=== PATIENT | female | born 1955 | race Caucasian/White ===

== ENCOUNTER 2020-10-20 12:34 | Outpatient (CLI) | payer MEDICARE, SELFPAY ==
--- NOTE | ~2020-10-20 | DEXA_ITS ---
Bone Density Report Name: Toña Yo Age: 65 Sex: Female Ethnicity: White Date of : 1955 Indication: postmenopausal; prior fracture; Referring Provider: Janna Gann Study: Bone densitometry was performed. Exam Date: October 20, 2020 Accession number: [id number] Bone Density: Region BMD T-score Z-score Classification AP Spine (L1-L4) 0.897 -1.4 0.5 Osteopenia Femoral Neck (Left) 0.697 -1.4 0.2 Osteopenia Total Hip (Left) 0.846 -0.8 0.5 Normal Total Hip Bilateral Avg 0.826 -1.0 0.4 Osteopenia Femoral Neck (Right) 0.721 -1.1 0.4 Osteopenia Total Hip (Right) 0.804 -1.1 0.2 Osteopenia World Health Organization criteria for BMD impression classify patients as: Normal (T-score at or above -1.0), Osteopenia (T-score between -1.0 and -2.5), or Osteoporosis (T-score at or below -2.5). 10-year Fracture Risk(1): Major Osteoporotic Fracture 14% Hip Fracture 1.4% Reported Risk Factors: [place] (), Neck BMD=0.697, BMI=28.8, previous fracture (1) FRAX(R) Version 3.08. Fracture probability calculated for an untreated patient. Fracture probability may be lower if the patient has received treatment. Clinical Information Provided by Patient: Has had a low trauma fracture Patient maximum height was 69 Menopause Age: 51 No regular weight bearing exercise Drinks caffeinated beverages Onset of menses at age 12 Number of children 2 Impression: The patient has low bone mass, based on the Total Spine T-score. The patient has an estimated ten-year risk of hip fracture of 1.4% and an estimated ten-year risk of major fracture of 14%, based on the WHO FRAX algorithm. The patient has risk factors, including: previous fracture. Discussion: BONE DENSITY IS LOW AT ONE OR MORE SKELETAL SITES. This patient's lowest T-score is low at one or more skeletal sites. It meets the World Health Organization's (WHO) criteria for ?low bone mass? (T-score between -1.0 and -2.5). The patient's 10-year risk of fracture as calculated by FRAX is less than the threshold where pharmacological therapy is recommended by the National Osteoporosis Foundation (NOF). However, all treatment decisions require clinical judgment and consideration of individual patient factors, including patient preferences, comorbidities, previous drug use, risk factors not captured in the FRAX model (e.g., frailty, falls, vitamin D deficiency, increased bone turnover, interval significant decline in bone density) and possible under or overestimation of fracture risk by FRAX. The patient should follow a healthful lifestyle (good nutrition with adequate calcium and vitamin D, and appropriate weight-bearing exercise). Follow-Up: Consider repeating this study in 2 to 3 years to reassess this patient's status, or sooner if there is some new clinical indication.
== END 2020-10-20 12:35 | disposition home or self-care (01) ==
LOC: ANHIMG 12:41
PROVIDERS: PCP Internal Medicine; Visit Provider Obstetrics & Gynecology
DX: Z78.0 Asymptomatic menopausal state (principal); M85.88 Other specified disorders of bone density and structure, other site; M85.852 Other specified disorders of bone density and structure, left thigh; M85.851 Other specified disorders of bone density and structure, right thigh
CPT/HCPCS: 77080

== ENCOUNTER 2020-10-27 12:47 | Outpatient (CLI) | payer MEDICARE, SELFPAY ==
--- NOTE | ~2020-10-27 | MM_ITS ---
EXAMINATION: MM screening carmen BI w gautam HISTORY: Screening mammogram TECHNIQUE: Craniocaudal and mediolateral oblique 3-D tomosynthesis images were obtained and synthetic 2-D images were generated. CAD analysis was submitted and interpreted. COMPARISON: 05/12/2015 bilateral Limited breast ultrasound 02/03/2015 right complete breast ultrasound 02/03/2015 bilateral diagnostic digital mammogram and limited left breast ultrasound 01/27/2013 bilateral digital screening mammogram BREAST PARENCHYMAL COMPOSITION: The breasts are heterogeneously dense, which may obscure small masses . FINDINGS: There is no evidence of suspicious mass, calcification, or architectural distortion to sugg est malignancy in either breast. There has been no suspicious interval change. IMPRESSION: 1. No mammographic evidence of malignancy. 2. Recommend routine screening mammography in one year. BI-RADS Category 1: Negative Reviewed, dictated and finalized at location D.
== END 2020-10-27 12:48 | disposition home or self-care (01) ==
PROVIDERS: PCP Internal Medicine; Visit Provider Obstetrics & Gynecology
DX: Z12.31 Encounter for screening mammogram for malignant neoplasm of breast (principal)
CPT/HCPCS: 77063; 77067

== ENCOUNTER → 2021-05-12 10:52 | Outpatient (CLI) | payer MEDICARE, SELFPAY ==
--- NOTE | ~2021-05-12 | XR_ITS ---
EXAMINATION: XR chest 2V DATE: 05/12/2021 11:21 INDICATION: Abnormal weight loss TECHNIQUE: frontal and lateral views of the chest were obtained. COMPARISON: Chest radiograph dated 09/23/2009 FINDINGS: The lungs remain clear with no focal airspace opacities, pulmonary edema, pleural effusion or pneumot horax. The cardiomediastinal silhouette is normal. Tortuous thoracic aorta. Mild thoracic spondylosis . IMPRESSION: 1. No acute cardiopulmonary disease. Reviewed, dictated and finalized at location B. [employer] TRA[employer]ER
== END ==
PROVIDERS: PCP Internal Medicine; Visit Provider Internal Medicine
DX: R63.4 Abnormal weight loss (principal)
CPT/HCPCS: 71046

== ENCOUNTER 2021-10-07 12:18 | Emergency (ER) | payer MEDICARE, SELFPAY ==
[2021-10-07 12:20] VITALS: BP 150/96; PULSE 101; RESP 16; TEMP 35.9; O2SAT 100
[2021-10-07] MEDS: predniSONE 20 MG TABLET 60 MG PO (12:42)
[2021-10-07] MEDS: FAMOTIDINE 20 MG TABLET PO (12:43)
[2021-10-07 12:45] LABS: Basophils Absolute Auto 0.1 K/mm3 (0.0-0.1); Basophils Percent Auto 1.2 % (0.2-1.2); Eosinophils Absolute Auto 0.5 K/mm3 (0-0.3); Eosinophils Percent Auto 9.1 % (0-4.4); Hematocrit 45.7 % (37.0-47.0); Hemoglobin 14.9 g/dL (12.0-15.0); Immature Granulocyte Absolute 0.02 K/mm3 (0.00-0.031); Immature Granulocyte Percent A 0.4 % (0-0.5); Lymphocytes Percent Auto 42.4 % (18.3-44.2); Mean Corpuscular HGB Conc 32.6 g/dl (32-36); Mean Corpuscular Hemoglobin 30.8 pg (26-34); Mean Corpuscular Volume 94.6 fl (80-100); Monocytes Absolute Auto 0.7 K/mm3 (0.1-0.6); Monocytes Percent Auto 12.9 % (2.6-8.5); Neutrophils Absolute Auto 1.8 K/mm3 (1.3-6.7); Platelet Count Result 228 k/mm3 (150-375); Red Blood Count 4.83 M/mm3 (4.2-5.4); Red Cell Distribution Width 13.1 % (11.5-14.5); White Blood Count 5.2 K/mm3 (4.5-10.0)
[2021-10-07 12:56] LABS: Alanine Aminotransferase 70 U/L (4-35); Albumin Level 4.6 g/dL (3.5-5.1); Alkaline Phosphatase 143 U/L (38-126); Anion Gap 8 mmol/L (8-16); Aspartate Amino Transferase 102 U/L (14-36); Bilirubin,Total 0.3 mg/dL (0.2-1.3); Blood Urea Nitrogen 10 mg/dL (7-17); Calcium 9.4 mg/dL (8.4-10.2); Carbon Dioxide 27 mmol/L (22-30); Chloride 101 mmol/L (98-107); Estimated CRCL calculation 64 ml/min; Estimated Glomerular Filt Rate > 60; Glucose 105 mg/dL (65-110); Potassium 3.6 mmol/L (3.4-5.0); Sodium 136 mmol/L (137-145)
--- NOTE | 2021-10-07 14:24 | ED.ALLEREA ---
HPI - Allergic Reaction General Chief complaint: Allergic Reaction Stated complaint: allergic reaction Time Seen by Provider: 10/07/21 12:29 Source: RN notes reviewed History of Present Illness HPI narrative: Patient presents emergency department from home for allergic reaction. Patient states symptoms been ongoing for the past 2 to 3 weeks she states she has been having hives to them in different locations including her face or chest her lower back or legs and in her hands she states that 3 days ago she began to notice hives on her hands she states that the areas on the face are still present but have been improving she states today she felt like possibly she had some feeling of sticking in her throat and she came to the ER for further evaluation she denies any shortness of breath or inability to swallow she denies any fevers or chills, chest pain, shortness of breath abdominal pain nausea vomiting or any other symptoms. She did take 50 mg of Benadryl at 10 AM this morning but denies taking any other medication. Denies any new medications. 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 and placed on eyedrop she is no longer on Related Data Allergies Allergy/AdvReac Type Severity Reaction Status Date / Time Cephalosporins Allergy Unknown Unknown Verified 10/07/21 12:43 Penicillins Allergy Unknown Unknown Verified 10/07/21 12:43 Quinolones Allergy Unknown Unknown Verified 10/07/21 12:43 Sulfa (Sulfonamide Allergy Unknown Unknown Verified 10/07/21 12:43 Antibiotics) Review of Systems Review of Systems: Gen.: Denies fevers or chills Eyes: Denies eye pain or visual change ENT: Denies congestion Respiratory: Denies shortness of breath or cough CV: Denies chest pain or palpitations GI: Denies abdominal pain nausea, emesis or diarrhea denies burning, urgency, frequency or hematuria Musculoskeletal: Denies back pain or muscle pain Neuro: Denies numbness, tingling, weakness or focal weakness Skin: See HPI Except as documented, all other systems reviewed and negative [facility] Past Medical History Medical History (Updated 10/07/21 @ 14:28 by Winston Aly DO) Hypertension Family History Family History (Updated 08/15/18 @ 08:57 by DOCTOR UNKNOWN) Mother Cerebrovascular accident Hypertension Sibling Family history of lung cancer Social History Social History (Updated 10/07/21 @ 14:25 by Winston Aly DO) Smoking status: Never smoker Alcohol intake: current Exam Narrative: APPEARANCE: No acute distress, nontoxic, resting in bed EYES: EOMI HEENT: Normocephalic, atraumatic, OMM airway patent no swelling of the lips or time, uvula midline tolerating own secretions voice normal RESPIRATORY: No respiratory distress Clear to auscultation bilaterally with no rhonchi wheezing or rales. CARDIOVASCULAR: Regular rate and rhythm without murmurs rubs or gallops. ABDOMINAL: Soft, nontender, nondistended, no rebound or guarding MUSCULOSKELETAl: Moves all extremities. No clubbing, cyanosis or edema. NEURO: Awake and alert. Following commands, speech normal, no focal deficits SKIN:: Warm, dry. Patient with bilateral hands with erythematous lesions that have no nodule feeling there is no raised areas there is no fluctuance or drainage there is similar appearance on her bilateral cheeks as well as her midsternal chest and lower back patient states the areas do itch PSYCHIATRIC: Normal affect/mood, Course Course Emergency Course: Patient states symptoms are improved with steroids Discussed with patient results of workup and diagnosis. Discussed need for follow-up with primary care, proper use of medication, and reasons to return to the emergency department. Patient understands and agrees to current treatment plan Vital Signs Vital signs: Vital Signs Temperature 96.6 F L 10/07/21 12:20 Pulse Rate 101 H 10/07/21 12:20 Respiratory Rate 16
[2021-10-07 15:03] VITALS: BP 148/90; PULSE 98; RESP 18; O2SAT 100
== END 2021-10-07 15:07 | disposition home or self-care (01) ==
PROVIDERS: Emergency Provider Emergency Medicine; PCP Internal Medicine
DX: L50.9 Urticaria, unspecified (principal); I10 Essential (primary) hypertension
CPT/HCPCS: 36415; 80053; 85025; 99283; A9270; J7512

== ENCOUNTER → 2022-01-25 10:13 | Outpatient (CLI) | payer MEDICARE, SELFPAY ==
--- NOTE | ~2022-01-25 | MM_ITS ---
EXAMINATION: MM screening carmen BI w gautam HISTORY: Screening TECHNIQUE: Craniocaudal and mediolateral oblique 3-D tomosynthesis images were obtained and synthetic 2-D images were generated. CAD analysis was submitted and interpreted. COMPARISON: Comparison to multiple prior studies sequentially, with oldest reviewed study dated 01/27. BREAST PARENCHYMAL COMPOSITION: The breasts are heterogeneously dense, which may obscure small masses FINDINGS: There is a possible mass in the lower inner quadrant of the left breast. The right breast i s stable without evidence for malignancy. IMPRESSION: 1. Possible mass lower inner quadrant of the left breast. 2. Additional mammographic views and possible breast ultrasound are recommended. BI-RADS Category 0: Incomplete: Needs additional imaging evaluation. Reviewed, dictated and finalized at location A. IMPRESSION: 1. Possible mass lower inner quadrant of the left breast. 2. Additional mammographic views and possible breast ultrasound are recommended . BI-RADS Category 0: Incomplete: Needs additional imaging evaluation.
== END ==
PROVIDERS: PCP Internal Medicine; Visit Provider Internal Medicine
DX: Z12.31 Encounter for screening mammogram for malignant neoplasm of breast (principal); R92.8 Other abnormal and inconclusive findings on diagnostic imaging of breast
CPT/HCPCS: 77063; 77067

== ENCOUNTER 2022-02-10 13:29 | Outpatient (CLI) | payer MEDICARE, SELFPAY ==
--- NOTE | ~2022-02-10 | MMUS_ITS ---
EXAMINATION: MM diagnostic carmen LT w gautam, US breast LT limited HISTORY: Possible mass of the lower inner quadrant of left breast reported on 01/21/2022 screening carmen mogram examination TECHNIQUE: Additional 3-D tomosynthesis images of the left breast were performed and synthetic 2-D im ages were generated. CAD analysis was submitted and interpreted. High resolution lower inner quadrant left breast ultrasound was performed. COMPARISON: 01/21/2022 bilateral screening mammogram examination FINDINGS: MAMMOGRAPHIC FINDINGS: Approximately 8 mm opacity is suggested in the lower inner quadrant of the left breast not far from m idline. Ultrasound correlation was obtained. ULTRASOUND: 5.8 x 8 x 9 mm circumscribed hypoechoic lesion with through transmission posterior enhancement is nadir ntified at 6:00 near the nipple. This is most likely benign. Differential diagnosis includes fibroade noma and complicated cysts. 6 month follow-up diagnostic mammogram and left breast ultrasound examina tion are recommended. IMPRESSION: 1. Probable benign 9 mm mass at 6:00 2. 6 month follow-up diagnostic mammogram and left breast ultrasound examination are recommended BI-RADS category 3, probably benign findings. Reviewed, dictated and finalized at location A. IMPRESSION: 1. Probable benign 9 mm mass at 6:00 2. 6 month follow-up diagnostic mammogram and left breast ultrasound examinatio n are recommended BI-RADS category 3, probably benign findings.
== END 2022-02-10 13:30 | disposition home or self-care (01) ==
LOC: ANHIMG 13:31
PROVIDERS: PCP Internal Medicine; Visit Provider Internal Medicine
DX: R92.8 Other abnormal and inconclusive findings on diagnostic imaging of breast (principal)
CPT/HCPCS: 76642; 77061; 77065; G0279

== ENCOUNTER 2022-08-29 05:25 | Inpatient (IN) | payer MEDICARE, SELFPAY ==
[2022-08-29] VITALS (30 sets, daily range): BP systolic 122–171; BP diastolic 73–103; PULSE 89–125; RESP 16–27; TEMP 37.4–38.1; O2SAT 94–100; BMI 27.2
--- NOTE | ~2022-08-29 | CT_ITS ---
EXAMINATION: CT cervical spine wo con DATE: 08/29/2022 06:06 INDICATION: Fall. TECHNIQUE: Computed tomography (CT) of the cervical spine was performed without intravenous contrast. Automated exposure control and iterative reconstruction technique were employed. The dose-length pro duct was 523.28 mGy-cm. COMPARISON: None FINDINGS: There is mild emphysema. There is 5 degrees dextrocurvature of cervical spine. There is kyp hosis of cervical spine. There is mild chronic anterior wedging of C5 vertebral body. There is 1 mm r etrolisthesis of C5 on C6. There is moderately decreased disc height at C5-C6. The following disc lev els are specifically discussed: C2-C3: There is no uncovertebral joint osteoarthritis. There is mild right and severe left facet join t osteoarthritis. There is mild left neural foraminal stenosis. There is no central canal stenosis. C3-C4: There is no uncovertebral joint osteoarthritis. There is moderate right and severe left facet joint osteoarthritis. There is moderate left neural foraminal stenosis. There is no central canal domenic nosis. C4-C5: There is mild bilateral uncovertebral joint osteoarthritis. There is moderate bilateral facet joint osteoarthritis. There is no neural foraminal stenosis. There is no central canal stenosis. C5-C6: There is mild right and severe left uncovertebral joint osteoarthritis. There is mild bilatera l facet joint osteoarthritis. There is mild left neural foraminal stenosis. There is mild central can al stenosis. C6-C7: There is mild bilateral uncovertebral joint osteoarthritis. There is moderate left facet joint osteoarthritis. There is no neural foraminal stenosis. There is no central canal stenosis. C7-T1: There is no uncovertebral joint osteoarthritis. There is moderate right and severe left facet joint osteoarthritis. There is mild left neural foraminal stenosis. There is no central canal stenosi s. IMPRESSION: 1. No fracture. 2. Moderate cervical spondylosis. Reviewed, dictated and finalized at location A.
--- NOTE | ~2022-08-29 | MR_ITS ---
MRI of the brain Clinical History: CVA Technique: Axial and sagittal T1-weighted images were acquired. These were followed by axial T2-weigh inna, diffusion weighted, gradient, and FLAIR images. Following intravenous administration of 17 cc Mu ltiHance gadolinium, T1-weighted fat-sat imaging was performed in the axial plane. Findings: There is extensive FLAIR hyperintense signal and probable edematous change of the medial ri ght temporal lobe. There is also probable much more mild abnormal increased FLAIR signal in the anter omedial left temporal lobe as well. Lesion is heterogeneous in signal diffusion images with predomina ntly high signal on ADC map. There is subtle hemosiderin within the medial right temporal lobe abnorm ality on gradient images. Ventricles and subarachnoid spaces are unremarkable otherwise. Orbits are unremarkable. Paranasal sin uses and mastoid air cells are clear. Major intracranial flow voids are intact. Sagittal midline structures are intact. IMPRESSION: Extensive abnormal FLAIR hyperintense signal and probable edematous change involving the medial right temporal lobe, with much more mild findings in the medial left temporal lobe. Probable subtle hemosi gera within the right temporal abnormality. Distribution of findings is probably most suspicious for herpes encephalitis. Diffusion weighted imaging characteristics are inconsistent with an acute infar ct. Case discussed with Dr. Franks at the time of this reading. Reviewed, dictated and finalized at location . IMPRESSION: Extensive abnormal FLAIR hyperintense signal and probable edematous change invo lving the medial right temporal lobe, with much more mild findings in the media l left temporal lobe. Probable subtle hemosiderin within the right temporal abn ormality. Distribution of findings is probably most suspicious for herpes encep halitis. Diffusion weighted imaging characteristics are inconsistent with an ac el infarct. Case discussed with Dr. Franks at the time of this reading.
--- NOTE | ~2022-08-29 | XR_ITS ---
EXAMINATION: XR chest 1V portable DATE: 08/29/2022 06:32 INDICATION: Weakness. TECHNIQUE: A single frontal view of the chest was obtained. COMPARISON: Chest 2 views 05/12/2021 FINDINGS: The chest demonstrates clear lungs without pneumonia, pleural effusion, or pneumothorax. Th e heart size is normal. IMPRESSION: 1. No acute cardiopulmonary disease. Reviewed, dictated and finalized at location A.
--- NOTE | ~2022-08-29 | CT_ITS ---
EXAMINATION: CTA brain carotid DATE: 08/29/2022 07:32 INDICATION: Stroke. TECHNIQUE: Computed tomographic angiography (CTA) of the head was performed with 100 mL Omnipaque-350 intravenous contrast. CTA of the neck was performed with intravenous contrast. Automated exposure co ntrol and iterative reconstruction technique were employed. The dose-length product was 1090.19 mGy-c m. Maximum intensity projection and volume rendered 3D-reconstructions were created by the technologi st on a separate workstation. COMPARISON: Head CT 08/29/2022 FINDINGS: HEAD CTA: There is low attenuation in the medial right temporal lobe, consistent with acute infarct. There is no intracranial hemorrhage or abnormal mass lesion. The ventricles are normal in size. There is mild mucosal thickening in the paranasal sinuses. The orbits are normal. The mastoid air cells ar e normal. The vertebral arteries are codominant. There is no significant stenosis of basilar artery o r the posterior cerebral arteries. The posterior communicating arteries are normal. There is no signi ficant stenosis of the intracranial internal carotid arteries or anterior or middle cerebral arteries . Anterior communicating artery is normal. There is no aneurysm. NECK CTA: There is mild emphysema. There are no pathologically enlarged lymph nodes. There is no sign ificant stenosis of the vertebral arteries. There is plaque in the proximal internal carotid arteries . There is 0% stenosis of the proximal right internal carotid artery relative to normal distal artery lumen diameter (NASCET criteria). There is 0% stenosis of the proximal left internal carotid artery relative to normal distal artery lumen diameter. There is moderate cervical spondylosis. IMPRESSION: 1. Acute infarct in the right temporal lobe. 2. No aneurysm or significant intracranial arterial stenosis. 3. 0% stenosis of the proximal internal carotid arteries relative to normal distal artery lumen diame ters (NASCET criteria). Reviewed, dictated and finalized at location A. IMPRESSION: 1. Acute infarct in the right temporal lobe. 2. No aneurysm or significant intracranial arterial stenosis. 3. 0% stenosis of the proximal internal carotid arteries relative to normal dis bashir artery lumen diameters (NASCET criteria).
--- NOTE | ~2022-08-29 | CT_ITS ---
EXAMINATION: CT brain wo con DATE: 08/29/2022 06:06 INDICATION: Seizure. Stroke. Fall. TECHNIQUE: Computed tomography (CT) of the head was performed without intravenous contrast. The mA wa s adjusted according to patient size. Iterative reconstruction technique was employed. The dose-lengt h product was 605.33 mGy-cm. COMPARISON: None FINDINGS: There is low attenuation in the medial right temporal lobe, consistent with an acute infarc t. There is no intracranial hemorrhage or abnormal mass lesion. The ventricles are normal in size. Th e orbits are normal. There is mild mucosal thickening in the ethmoid sinuses. The mastoid air cells a re normal. IMPRESSION: 1. Acute infarct in right temporal lobe. I called this result to Dr. Banegas. Reviewed, dictated and finalized at location A.
--- NOTE | ~2022-08-29 | XR_ITS ---
EXAMINATION: XR lumbar puncture diagnostic DATE: 08/30/2022 09:54 INDICATION: Seizure. TECHNIQUE: Consent was provided by the patient's . A timeout was performed to verify the pat ient's name, date of , and procedure to be performed. The skin overlying the L2-L3 level was pr epped and draped in usual sterile fashion. Subcutaneous 1% lidocaine was used for local anesthesia. A 20 gauge spinal needle was advanced under fluoroscopic guidance. The needle was removed and the en try site was cleaned and dressed. There were no immediate complications. Fluoroscopy exposure time w as 0.0 minutes. The total number of images was 1. FINDINGS: Real-time fluoroscopy demonstrates the needle at the L2-L3 level. The opening pressure was 14 cm water (Normal range is variably defined as 6-20 cm water and up to 25 cm water in obese patient s. Pressure >25 cm water is one of the modified Dandy criteria for idiopathic intracranial hypertensi on). 14 mL of clear, colorless fluid was collected in 4 tubes. IMPRESSION: 1. Successful fluoro-guided lumbar puncture. Reviewed, dictated and finalized at location A.
--- NOTE | 2022-08-29 05:38 | ECG_ITS ---
Measurements Intervals [place] Rate: 116 P: 47 MT: 185 QRS: -14 QRSD: 84 T: 33 QT: 435 QTc: 605 Interpretive Statements SINUS TACHYCARDIA POSSIBLE LEFT ATRIAL ENLARGEMENT POSSIBLE LEFT VENTRICULAR HYPERTROPHY BORDERLINE R WAVE PROGRESSION, ANTERIOR LEADS INFERIOR INFARCT, AGE INDETERMINATE ABNORMAL ECG NO PREVIOUS ECG AVAILABLE FOR COMPARISON Electronically Signed On 08-29-2022 8:02:43 CDT by Husam Craft D.O.
[2022-08-29 05:39] LABS: Glucose Point of Care 195 mg/dl (65-105)
[2022-08-29] MEDS: SODIUM CHLORIDE 0.9% IV 1,000 ML 999 ML IV CONT (05:47)
--- NOTE | 2022-08-29 05:54 | ED.GENADULT ---
HPI - General Adult General Chief complaint: Fall <Jeremie Banegas MD - Last Filed: 08/29/22 19:53> Stated complaint: possible seizure s/p fall <Jeremie Banegas MD - Last Filed: 08/29/22 19:53> Time Seen by Provider: 08/29/22 05:38 <Jeremie Banegas MD - Last Filed: 08/29/22 19:53> History of Present Illness HPI narrative: confusion since yesterday morning around 5 pm was confused and this evening got up at 2 am fell to floor was helped into chair and had generalized seizure. Patient 67-year-old female who presents the emergency department with chief complaint of seizure. Per the patient's family the patient was acting strange yesterday and around 5 PM she was having difficulty identifying things and could not identify a thermometer for the patient got up in the morning fell to the floor and he helped her up to a chair of which a little while later he checked on her and she was having shaking in her extremities and was foaming at the mouth <Jeremie Banegas MD - Last Filed: 08/29/22 19:53> Related Data Allergies/adverse reactions: Allergies Allergy/AdvReac Type Severity Reaction Status Date / Time Cephalosporins Allergy Unknown Unknown Verified 10/07/21 12:43 Penicillins Allergy Unknown Unknown Verified 10/07/21 12:43 Quinolones Allergy Unknown Unknown Verified 10/07/21 12:43 Sulfa (Sulfonamide Allergy Unknown Unknown Verified 10/07/21 12:43 Antibiotics) <Jeremie Banegas MD - Last Filed: 08/29/22 19:53> Review of Systems Review of Systems: A 10 system review of systems was completed on the patient and is negative except for what is stated in the HPI. Nursing and ancillary documentation was reviewed. <Jeremie Banegas MD - Last Filed: 08/29/22 19:53> PMFSH Past Medical History Medical History: Medical History Hypertension <Jeremie Banegas MD - Last Filed: 08/29/22 19:53> Family History Family History: Family History Mother Cerebrovascular accident Hypertension Sibling Family history of lung cancer <Jeremie Banegas MD - Last Filed: 08/29/22 19:53> Social History Social History: Social History Smoking status: Never smoker Second hand tobacco smoke exposure: No Alcohol intake: current Drinks per week: 2 Substance use: never Substance use type: does not use Spiritual care concerns: No <Jeremie Banegas MD - Last Filed: 08/29/22 19:53> Exam Narrative: GENERAL: Patient ill-appearing, slow to respond. HEAD: Normocephalic, atraumatic. EYES: PERRLA and EOMI. ENT: Nares clear, no rhinorrhea or epistaxis. Mucous membranes moist. NECK: Supple. CHEST: Clear to auscultation. No respiratory distress. HEART: Regular rate and rhythm. No murmur heard. Normal peripheral pulses. ABDOMEN: Soft, nontender, nondistended, normal active bowel sounds. EXTREMITIES: Normal range of motion. No edema. SKIN: Warm, dry, no rash. NEURO: No facial droop present, patient has intermittent shaking in the right hand, unresponsive.. PSYCH: Normal mood and affect. <Jeremie Banegas MD - Last Filed: 08/29/22 19:53> Course Course Emergency Course: patient not a lytic candidate LKW >4 hrs and positive seizure activity. <Jeremie Banegas MD - Last Filed: 08/29/22 19:53> Reevaluation(s) Reevaluation #1: Patient laying down in bed, with intermittent snoring, arousable to pain with opening her eyes, does not respond to verbal commands, at the bedside <Jemal Ragsdale MD - Last Filed: 08/29/22 10:01> Date: 08/29/22 <Jemal Ragsdale MD - Last Filed: 08/29/22 10:01> Time: 09:58 <Jemal Ragsdale MD - Last Filed: 08/29/22 10:01> Consultations Consultation #1:
[2022-08-29 06:05] LABS: Basophils Percent Auto 0.3 % (0.2-1.2); Hematocrit 42.8 % (37.0-47.0); Hemoglobin 13.3 g/dL (12.0-15.0); Immature Granulocyte Absolute 0.23 K/mm3 (0.00-0.031); Immature Granulocyte Percent A 1.8 % (0-0.5); Lymphocytes Absolute Auto 1.13 K/mm3 (0.9-3.2); Lymphocytes Percent Auto 8.9 % (18.3-44.2); Mean Corpuscular HGB Conc 31.1 g/dl (32-36); Mean Corpuscular Volume 93.4 fl (80-100); Mean Platelet Volume 9.3 fl (7.4-10.4); Monocytes Absolute Auto 0.4 K/mm3 (0.1-0.6); Monocytes Percent Auto 2.9 % (2.6-8.5); Neutrophils Absolute Auto 10.9 K/mm3 (1.3-6.7); Neutrophils Percent Auto 86.1 % (45.5-73.1); Platelet Count Result 299 k/mm3 (150-375); Red Blood Count 4.58 M/mm3 (4.2-5.4); Red Cell Distribution Width 12.7 % (11.5-14.5); White Blood Count 12.7 K/mm3 (4.5-10.0)
--- NOTE | 2022-08-29 06:07 | PC.NURSE ---
Pt more arousable, alert to verbal stimuli but unable to follow directions
[2022-08-29 06:14] LABS: Alkaline Phosphatase 145 U/L (38-126); Anion Gap 24 mmol/L (8-16); Bilirubin,Total 0.6 mg/dL (0.2-1.3); Blood Urea Nitrogen 10 mg/dL (7-17); Calcium 9.5 mg/dL (8.4-10.2); Carbon Dioxide 15 mmol/L (22-30); Chloride 96 mmol/L (98-107); Estimated Glomerular Filt Rate 55; Glucose 203 mg/dL (65-110); Magnesium 2.4 mg/dL (1.6-2.3); Potassium 3.5 mmol/L (3.4-5.0); Sodium 135 mmol/L (137-145)
[2022-08-29 06:15] LABS: INR 1.1; Partial Thromboplastin Time 34.3 SECONDS (22.3-36.8); Prothrombin Time 14.1 Seconds (11.1-14.7)
[2022-08-29 06:17] LABS: Ethanol < 10 mg/dL (<10)
[2022-08-29 06:23] LABS: Troponin I < 0.012 ng/mL (0.000-0.034)
[2022-08-29] MEDS: levETIRAcetam 1000MG/NACL100ML 1,000 MG/100 ML BAG 400 MG IVPB (06:32)
[2022-08-29 06:36] LABS: Lactic Acid Reflex 13.4 mmol/L (0.7-2.0)
--- NOTE | 2022-08-29 06:49 | PC.NURSE ---
Confirmed with Dr. Banegas that the patient will need a Britt catheter.
[2022-08-29 07:13] LABS: Alanine Aminotransferase 48 U/L (6-35); Aspartate Amino Transferase 54 U/L (14-36)
[2022-08-29 07:19] LABS: Appearance Urine Clear (Clear); Bacteria Urine None Seen /hpf; Bilirubin Urine Negative (Negative); Blood Urine Negative (Negative); Color Urine Yellow (Yellow); Glucose Urine UA Negative (Negative); Ketones Urine Negative (Negative); Leukocyte Esterase Ur Negative LEU/UL (Negative); Need Manual Microscopic Reviewed; Nitrate Urine Negative (Negative); Protein Urine 2+ mg/dL (Negative); RBC Urine 0-2 /hpf (0-2); Specific Grav Ur 1.016 (1.001-1.035); Squamous Epithelial Cell Urine None seen /hpf (Few); Urobilinogen Urine 0.2 mg/dL (<2.0); WBC Urine 0-5 /hpf
[2022-08-29 07:21] LABS: Add Urine Microscopic? YES
[2022-08-29 08:54] LABS: Reflex Lactic Acid Yes or No Add Lactic
[2022-08-29] MEDS: ASPIRIN 300 MG SUPPOSITORY RECTAL (09:53)
[2022-08-29 09:57] LABS: Lactic Acid 1.8 mmol/L (0.7-2.0)
[2022-08-29 09:58] LABS: Amphetamine Screen Urine Negative (Negative); Barbiturate Screen Urine Negative (Negative); Benzodiazepines Screen Urine Negative (Negative); Cannabinoid Screen Urine Negative (Negative); Cocaine Screen Urine Negative (Negative); Methadone Screen Urine Negative (Negative); Opiate Screen Urine Negative (Negative); Phencyclidine Screen Urine Negative (Negative)
[2022-08-29] MEDS: ONDANSETRON INJ 4 MG/2 ML VIAL 8 MG IV PUSH (12:40)
--- NOTE | 2022-08-29 13:45 | PM.IMHP ---
H&P: HPI History of Present Illness Date/Time: 08/29/22 13:45 Chief Complaint: Seizure-like activity. Narrative: This is a 67-year-old female who presented to the emergency department via EMS from home for evaluation of seizure-like activity. Patient provides following history. She is a bit confused as to what occurred today and thus some of the following is supplemented via a review of her electronic medical records. Last evening her reports that she was acting strange, for example she had difficulties identifying things such as a thermometer. At about 02:30 she fell out of bed and he helped her up to a chair and when he checked on her a bit later she was reportedly shaking in her extremities and was foaming at the mouth. She was postictal on arrival to the ED and cannot provide an accurate history. Initial concerns were for possible stroke versus seizure. By the time she arrived to the ER she was technically out of the window for tPA and would not be a candidate for his such due to reports of seizure-like activity. Brain CT did show evidence of an acute infarct and a subsequent CTA of the head and neck showed no evidence of large vessel occlusion. She was loaded with Keppra as she was showing signs of seizure activity in the ED and she was admitted to the IMU for close monitoring and neurology consultation. At the time my evaluation she is lying on her stomach in bed and is complaining of a sharp headache behind her left voodoo and of some nausea. She is confused as to the events that have occurred since last evening. She denies vertigo, vision changes, focal weakness, paresthesias, facial droop, and difficulty speaking and swallowing. She denies fever, chills, sweats, cold and flu symptoms, cough, vomiting, diarrhea, and dysuria. No palpitations, sensations of racing heart, or history of dysrhythmia. Review of Systems Review of Systems: Twelve systems were reviewed but are limited due to her confusion. She states no to every question asked aside from what is documented above. PMFSH Past Medical History Medical History Hyperlipidemia Hypertension Hypothyroidism Surgical History Surgical History (Updated 08/30/22 @ 14:21 by Johanny Angulo PA-C) Surgical history unknown Family History Family History Mother Cerebrovascular accident Hypertension Sibling Family history of lung cancer Social History Social History (Updated 08/30/22 @ 14:21 by Johanny Angulo PA-C) Social History: Surrogate medical decision maker: Kale Yo, spouse. Code status: Full code. Smoking status: Never smoker Second hand tobacco smoke exposure: No Alcohol intake: current Drinks per week: 2 Substance use: never Substance use type: does not use Additional living arrangements comments: Lives with spouse in [place]. Additional occupation/education comments: Works for [employer]. Spiritual care concerns: No Meds Home Medications and Allergies Home Medications Medication Instructions Recorded Confirmed Type famotidine 20 mg tablet (Pepcid) 20 mg PO DAILY #7 tabs 10/07/21 08/29/22 Rx loratadine 10 mg tablet 10 mg PO DAILY #5 tabs 10/07/21 08/29/22 Rx alprazolam 0.25 mg tablet 0.25 mg PRN PRN flying 08/29/22 08/29/22 History amlodipine 10 mg tablet 10 mg DAILY 08/29/22 08/29/22 History brimonidine 0.2 % eye drops 1 drp BID 08/29/22 08/29/22 History hydroxyzine HCl 10 mg tablet 10 - 20 mg PO PRN 08/29/22 08/29/22 History latanoprost 0.005 % eye drops 1 drp HS 08/29/22 08/29/22 History levothyroxine 137 mcg tablet 137 mcg DAILY 08/29/22 08/29/22 History losartan 100 mg tablet 100 mg DAILY 08/29/22 08/29/22 History meloxicam 15 mg tablet 15 mg DAILY 08/29/22 08/29/22 History netarsudil 0.02 % eye drops 1 drp DAILY 08/29/22 08/29/22 History (Rhopressa) pravastatin 40 mg tablet 40 mg DAILY 08/29/2208/03
--- NOTE | 2022-08-29 18:29 | ADMGEN ---
This patient, Toña Yo, was admitted to IMU Room 206-02 at 1352. Patient/family oriented to hospital policies and general routines including ID bracelet, bed and alarms, visiting hours, pain management, procedures, bathroom and other care routines, personal items, smoking policy, room service/diet, and visiting hours. Information on how to activate the Rapid Response Team has been discussed. Patient/Family are encouraged to report perceived risks to care and to ask questions if they do not understand what they are told or what they should do.
--- NOTE | 2022-08-29 20:00 | PC.NURSE ---
Johanny Angulo notified of patient arrival to IMU this afternoon, she will come to unit and see patient.
[2022-08-30] VITALS (10 sets, daily range): BP systolic 123–168; BP diastolic 75–93; PULSE 91–109; RESP 16–20; TEMP 37.4–38.7; O2SAT 97–99
--- NOTE | 2022-08-30 00:38 | ECHO_ITS ---
Patient Info Name: Toña Yo Age: 67 years : 1955 Gender: Female Ht: 70 in Wt: 190 lbs BSA: 2.08 m2 HR: 96 bpm BP: 123 / 87 mmHg Heart Rhythm: Sinus Rhythm Technical Quality: Fair Exam Date: 08/30/2022 10:40 AM Exam Location: [facility] Patient Status: Inpatient Admit Date: 08/29/2022 Staff Ordering Physician: Johanny Angulo PA-C Paper Gluing Operator: Yashira Jon RDCS Attending Provider: Isiah García MD Referring Physician: Kev PAYTON; Exam Type: CA echo doppler w bubble study Study Info Indications I10 - Essential (primary) hypertension - Stroke Complete two-dimensional, color flow and Doppler transthoracic echocardiogram is performed with agitated saline. Contrast/Agitated Saline Contrast/Ag. Saline: Agitated Saline Amount: 20.00 ml Administered By: Yashira Jon RDCS Existing IV Access: Yes IV Access Condition: patent with no signs of infiltration Summary 1. Left ventricular chamber dimension is normal. 2. Left ventricular systolic function is normal, estimated at 65-70%. 3. There is mild concentric increased left ventricular wall thickness. 4. The left ventricular diastolic function is grade I diastolic dysfunction. 5. E/e' 12 is mildly elevated. 6. There is trace mitral valve regurgitation. 7. There is trace tricuspid valve regurgitation. 8. No pulmonary hypertension, estimated pulmonary arterial systolic pressure is 22 mmHg. Left Ventricle E/e' 12 is mildly elevated. Left ventricular chamber dimension is normal. Left ventricular systolic function is normal, estimated at 65-70%. There is mild concentric increased left ventricular wall thickness. The left ventricular diastolic function is grade I diastolic dysfunction. Right Ventricle Right ventricular chamber dimension is normal. Right ventricular systolic function is normal. Left Atria Left atrial chamber dimension is normal. Right Atria Right atrial chamber dimension is normal. Atrial Septum Agitated saline injection with and without valsalva maneuver opacified right side cardiac chambers without shunt to left side cardiac chambers. Intact interatrial septum visualized by 2D and agitated saline imaging. Aortic Valve The aortic valve is trileaflet. There is no aortic valve stenosis. There is no aortic valve regurgitation. Pulmonic Valve There is no pulmonic regurgitation. Mitral Valve There is no mitral valve stenosis. There is trace mitral valve regurgitation. Tricuspid Valve There is trace tricuspid valve regurgitation. No pulmonary hypertension, estimated pulmonary arterial systolic pressure is 22 mmHg. Pericardium/Pleural There is no pericardial effusion. Inferior Vena Cava Normal inferior vena cava with >50% collapse upon inspiration consistent with normal right atrial pressure, 5 mmHg. Aorta The aortic root size at the sinus of Valsalva is normal. Left Ventricular Outflow Tract Name Value Normal LVOT 2D LVOT Diameter 2.1 cm LVOT Doppler LVOT Peak Gradient 8 mmHg L
[2022-08-30 04:31] LABS: Hematocrit 37.6 % (37.0-47.0); Hemoglobin 12.1 g/dL (12.0-15.0); Mean Corpuscular HGB Conc 32.2 g/dl (32-36); Mean Corpuscular Hemoglobin 28.3 pg (26-34); Mean Corpuscular Volume 87.9 fl (80-100); Platelet Count Result 234 k/mm3 (150-375); Red Blood Count 4.28 M/mm3 (4.2-5.4); Red Cell Distribution Width 12.5 % (11.5-14.5)
[2022-08-30 04:40] LABS: Magnesium 2.3 mg/dL (1.6-2.3)
[2022-08-30 05:44] LABS: Thyroid Stimulating Hormone Reflex 0.396 uIU/mL (0.465-4.68)
[2022-08-30 06:33] LABS: Free T4 Free Thyroxine Reflex 1.58 ng/dL (0.78-2.19)
[2022-08-30 07:24] LABS: Total Triiodothyronine (T3) 0.76 NG/ML (0.97-1.69)
[2022-08-30 09:01] LABS: Hematocrit 37.2 % (37.0-47.0); Mean Corpuscular HGB Conc 32.3 g/dl (32-36); Mean Corpuscular Hemoglobin 28.8 pg (26-34); Mean Corpuscular Volume 89.4 fl (80-100); Mean Platelet Volume 9.2 fl (7.4-10.4); Platelet Count Result 250 k/mm3 (150-375); Red Blood Count 4.16 M/mm3 (4.2-5.4); Red Cell Distribution Width 12.5 % (11.5-14.5); White Blood Count 11.3 K/mm3 (4.5-10.0)
[2022-08-30 09:13] LABS: INR 1.1; Prothrombin Time 14.2 Seconds (11.1-14.7)
[2022-08-30 09:23] LABS: Alanine Aminotransferase 19 U/L (6-35); Albumin Level 4.3 g/dL (3.5-5.1); Alkaline Phosphatase 126 U/L (38-126); Anion Gap 5 mmol/L (8-16); Aspartate Amino Transferase 42 U/L (14-36); Bilirubin,Total 0.7 mg/dL (0.2-1.3); Blood Urea Nitrogen 13 mg/dL (7-17); Calcium 9.3 mg/dL (8.4-10.2); Carbon Dioxide 32 mmol/L (22-30); Chloride 99 mmol/L (98-107); Estimated CRCL calculation 82 ml/min; Estimated Glomerular Filt Rate > 60; Glucose 103 mg/dL (65-110); Magnesium 2.2 mg/dL (1.6-2.3); Potassium 3.1 mmol/L (3.4-5.0); Sodium 136 mmol/L (137-145)
--- NOTE | 2022-08-30 09:57 | PM.TDS ---
Transfer Discharge Sum: Prov Provider Date of admission: 08/29/22 09:56 Primary care physician: Alison Perez MD Admitting clinician: Isiah García MD Consults: 08/29/22 09:57 Consult to Physician Routine Comment: Consulting Provider: Cira Spence Reason for consultation: Acute CVA Has provider been notified: Yes DS: Admitting Diagnosis Discharge Date 08/30/2022 Admitting Diagnosis seizures Transfer Discharge Sum: Med Medications Active and Home Medications: Home Medications famotidine 20 mg tablet (Pepcid) 20 mg PO DAILY #7 tabs 10/07/21 [Rx Confirmed 08/29/22] loratadine 10 mg tablet 10 mg PO DAILY #5 tabs 10/07/21 [Rx Confirmed 08/29/22] alprazolam 0.25 mg tablet 0.25 mg PRN PRN flying 08/29/22 [History Confirmed 08/29/22] amlodipine 10 mg tablet 10 mg DAILY 08/29/22 [History Confirmed 08/29/22] brimonidine 0.2 % eye drops 1 drp BID 08/29/22 [History Confirmed 08/29/22] hydroxyzine HCl 10 mg tablet 10 - 20 mg PO PRN 08/29/22 [History Confirmed 08/29/22] latanoprost 0.005 % eye drops 1 drp HS 08/29/22 [History Confirmed 08/29/22] levothyroxine 137 mcg tablet 137 mcg DAILY 08/29/22 [History Confirmed 08/29/22] losartan 100 mg tablet 100 mg DAILY 08/29/22 [History Confirmed 08/29/22] meloxicam 15 mg tablet 15 mg DAILY 08/29/22 [History Confirmed 08/29/22] netarsudil 0.02 % eye drops (Rhopressa) 1 drp DAILY 08/29/22 [History Confirmed 08/29/22] pravastatin 40 mg tablet 40 mg DAILY 08/29/22 [History Confirmed 08/29/22] timolol maleate 0.5 % eye drops 1 drp BID 08/29/22 [History Confirmed 08/29/22] Active Medications Al Hydrox/Mg Hydrox/Simethicone (Mag Hydrox/Al Hydrox/Simeth 30 Ml Udc) 20 ml PO Q4H PRN PRN Reason: Indigestion/Heartburn Amlodipine Besylate (Amlodipine Besylate 5 Mg Tablet) 10 mg BY MOUTH DAILY [facility] Aspirin (Aspirin 81 Mg Chewable Tablet) 81 mg PO DAILY@0800 [facility] Bisacodyl (Bisacodyl 10 Mg Suppository) 10 mg RECTAL DAILY PRN PRN Reason: Constipation Brimonidine Tartrate (Brimonidine Tartrate 0.2% Op Soln 5 Ml Btl) 1 drop AFFCTD EYE BID [facility] Docusate Sodium (Docusate Sodium 100 Mg Capsule) 100 mg PO Q12HR [facility] Famotidine (Famotidine 20 Mg Tablet) 20 mg PO DAILY [facility] Levetiracetam (Keppra Iv) 500 mg in 100 mls @ 400 mls/hr IVPB Q12HR [facility] Acyclovir Sodium 900 mg/ (Dextrose) 268 mls @ 266 mls/hr IVPB Q8HR [facility] Meropenem 2 gm/ Sodium (Chloride) 100 mls @ 100 mls/hr IVPB Q8H [facility] Vancomycin HCl (Vancomycin 1,250 Mg/D5w 250 Ml) 1,250 mg in 250 mls @ 166.667 mls/hr IVPB ONCE ONE Stop: 08/30/22 09:59 Vancomycin HCl (Vancomycin 1,000 Mg/D5w 250 Ml) 1,000 mg in 250 mls @ 250 mls/hr IVPB ONCE ONE Stop: 08/30/22 10:59 Vancomycin HCl (Vancomycin 1,500 Mg/D5w 500 Ml) 1,500 mg in 500 mls @ 250 mls/hr IVPB Q24H [facility] Latanoprost (Latanoprost 0.005% Op Soln 2.5 Ml Btl) 1 drop EACH EYE HS [facility] Levothyroxine Sodium (Levothyroxine Sodium 112 Mcg Tablet) 112 mcg PO DAILY@0630 [facility] Last Admin: 08/30/22 04:04 Dose: Not Given Levothyroxine Sodium (Levothyroxine Sodium 25 Mcg Tablet) 25 mcg PO DAILY@0630 [facility] Last Admin: 08/30/22 04:04 Dose: Not Given Loratadine (Loratadine 10 Mg Tablet) 10 mg PO DAILY [facility] Losartan Potassium (Losartan Potassium 100 Mg Tablet) 100 mg BY MOUTH DAILY [facility] Miscellaneous Information (Netarsudil (Rhopressa) Is Nonformulary - Can Patient Use From Home?) 0 each XX CLARIFY [facility] Stop: 09/29/22 00:00 Non-Formulary Medication (Netarsudil [Rhopressa]) 1 drop .ROUTE DAILY [facility] Stop: 09/29/22 08:59 Ondansetron HCl (Ondansetron Inj 4 Mg/2 Ml Vial) 4 mg IV PUSH Q6H PRN PRN Reason: Nausea And Vomiting Ondansetron HCl (Ondansetron Inj 4 Mg/2 Ml Vial) 4 mg IV PUSH Q8H PRN PRN Reason: Nausea And Vomiting Pravastatin Sodium (Pravastatin Sodium 20 Mg Tablet) 40 mg BY MOUTH DAILY [facility] Senna/Docusate Sodium (Senna/Docusate Sodium Tablet) 1 tab PO HS PRN PRN Reason: Constipation Timolol Maleate (Timolol Maleate 0.5% Op Soln 5 Ml Bottle) 1 drop EACH EYE BID [facility] Kimani Cheek
[2022-08-30 10:05] LABS: Lactate Dehydrogenase 232 U/L (120-246)
[2022-08-30 10:11] LABS: Glucose CSF 42 mg/dL (40-70)
[2022-08-30 10:15] LABS: Total Protein CSF 459 mg/dL (12-60)
--- NOTE | 2022-08-30 10:37 | WPDNEURCNPN ---
Assessment and Plan Assessment and plan (1) Encephalitis: Code(s): G04.90 - Encephalitis and encephalomyelitis, unspecified Status: Acute (2) Seizure: Code(s): R56.9 - Unspecified convulsions Status: Acute (3) Altered mental status: Code(s): R41.82 - Altered mental status, unspecified Status: Acute Plan Toña Yo is a 67 year old female with a history of HTN, HLD, and hypothyroidism who presented due to new onset seizure. 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 Results of LP still pending. Patient started on empiric acyclovir and antibiotics. Patient to be transferred to [facility] for continuation of care. - Continue acyclovir and antibiotics - Continue Keppra 500mg BID - Awaiting transfer Consult date: 08/30/22 Reason for consult: Seizure HPI: Toña Yo is a 67 year old female with a history of HTN, HLD, and hypothyroidism who presented due to new onset seizure. Per family, patient was not acting like herself the evening prior to presentation. She was having difficulty identifying common objects. In the early hour morning, hsband found her having a seizure described as shaking of the extremities and foaming at the mouth. She was post-ictal on arrival to [facility] ED. CT head showed concern for acute infarct in the right temporal lobe. CTA brain/carotid was negative. She was loaded with Keppra and admitted to the IMU. 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 She was started on acyclovir and meningitic antibiotics (vancomycin and meropenem) empirically. Lumbar puncture was done shortly afterwards. CSF studies are pending. She has gotten care at [facility] in the past, so family wish for transfer for the rest of her admission. This morning patient was not able to tell her name and was quite agitated. Review of Systems Review of Systems: ROS unobtainable: Yes unobtainable due to mental status PMFSH Past Medical History Medical History Hyperlipidemia Hypertension Hypothyroidism Family History Family History Mother Cerebrovascular accident Hypertension Sibling Family history of lung cancer Social History Social History Smoking status: Never smoker Second hand tobacco smoke exposure: No Alcohol intake: current Drinks per week: 2 Substance use: never Substance use type: does not use Spiritual care concerns: No Meds Home Medications and Allergies Home Medications Medication Instructions Recorded Confirmed Type famotidine 20 mg tablet (Pepcid) 20 mg PO DAILY #7 tabs 10/07/21 08/29/22 Rx loratadine 10 mg tablet 10 mg PO DAILY #5 tabs 10/07/21 08/29/22 Rx alprazolam 0.25 mg tablet 0.25 mg PRN PRN flying 08/29/22 08/29/22 History amlodipine 10 mg tablet 10 mg DAILY 08/29/22 08/29/22 History brimonidine 0.2 % eye drops 1 drp BID 08/29/22 08/29/22 History hydroxyzine HCl 10 mg tablet 10 - 20 mg PO PRN 08/29/22 08/29/22 History latanoprost 0.005 % eye drops 1 drp HS 08/29/22 08/29/22 History levothyroxine 137 mcg tablet 137 mcg DAILY 08/29/22 08/29/22 History losartan 100 mg tablet 100 mg DAILY 08/29/22 08/29/22 History meloxicam 15 mg tablet 15 mg DAILY 08/29/22 08/29/22 History netarsudil 0.02 % eye drops 1 drp DAILY 08/29/22 08/29/22 History (Rhopressa) pravastatin 40 mg tablet 40 mg DAILY 08/29/22 08/29/22 History timolol maleate 0.5 % eye drops 1 drp BID 08/29/22 08/29/22 History Allergies Allergy/AdvReac Type Severity Reaction Status Date / Time Cephalosporins Allergy Unknown Unknown Verified 10/07/21 12:43 Penicillins Allergy Unknown Unknown Verified 10/07/21 12:43 Quinolones Allergy Unknown Unknown Verified 10/07/21 12:43 Sulfa (Sulfonamide Allergy Unknown Unknown Verified
[2022-08-30 10:52] LABS: Appearance CSF Cloudy (Clear); CSF source CSF
[2022-08-30 10:53] LABS: Color CSF Colorless (Colorless); Lymphocytes CSF 16 % (40-80); Monocytes CSF 14 % (15-45); Neutrophils CSF 70 % (0-6); Nucleated Cell CSF 986 /uL (0-5); Red Blood Cell CSF < 2000 (0-2)
[2022-08-30] MEDS: ACYCLOVIR SODIUM IVPB 900 MG in DEXTROSE 5% IN WATER 250 ML 266 MG IVPB (11:26)
[2022-08-30] MEDS: MEROPENEM 2 GM in SODIUM CHLORIDE 0.9% IV 100 ML IVPB (11:36)
--- NOTE | 2022-08-30 14:10 | PCCCNOTE ---
On 08/30/22, the student, [Dea Oneal], provided care and completed [employer] documentation on this patient. I have reviewed the student's documentation and agree with the findings.
--- NOTE | 2022-08-31 10:05 | WPDNEUROLOGY ---
Neurology EEG Report General Information Date of Study: 08/30/22 TEST Routine EEG DIAGNOSIS New onset seizure CONDITION OF RECORDING Drowsy, asleep EEG NUMBER [id number] CLINICAL HISTORY Patient presented with new-onset seizure. Imaging findings concerning for encephalitis. EEG DESCRIPTION The recording is continuous. The background consists of diffuse delta-theta range slowing, The background is symmetric. There is no well formed posterior dominant rhythm or anterior posterior gradient. There is faster, activity noted in the bilateral parasagittal, suggestive of sleep spindles. Hyperventilation and photic stimulation were not performed due to patient's clinical state. There are no epileptiform discharges or electrographic seizures noted during the recording. IMPRESSION This is an abnormal routine EEG due to the presence of diffuse slowing. These changes can be seen in the setting of encephalopathy. There are no electrographic seizures or epileptiform features identified.
[2022-09-01 15:07] LABS: CMV DNA Quant PCR IU/mL Not Detected; Cytomegalovirus DNA Quant PCR Not Detected log IU/mL; Cytomegalovirus DNA Source Serum
[2022-09-01 18:12] LABS: JC Polyoma Virus DNA, QL Plasma; JC Polyoma Virus Source Not Detected (Not Detected)
[2022-09-03 04:00] LABS: Herpes Simplex Type 1 DNA PCR Not Detected (Not Detected); Herpes Simplex Type 2 DNA PCR Not Detected (Not Detected)
[2022-09-03 10:42] LABS: Varicella IgG Antibody >4000.00 Index (>=165.00); Varicella IgM Antibody <=0.90 (<=0.90)
[2022-09-03 11:50] LABS: Epstein Barr Virus DNA PCR Not Detected (Not Detected); Source Epstein Barr Virus CSF
[2022-09-04 15:18] LABS: West Nile Virus, IgM <0.90 index (<0.90)
[2022-09-04 15:56] LABS: Lyme Disease Ab (IgM), Blot Negative (Negative); Lyme Disease Ab(IgG), Blot Negative (Negative)
[2022-09-05 23:20] LABS: Cryptococcus Antigen Not Detected (Not Detected); Cryptococcus Specimen Source CSF
[2022-09-06 12:46] LABS: VDRL Quantitative CSF Nonreactive (Nonreactive)
[2022-09-06 16:50] LABS: Coccidioides Ab to F Ag (IgG) NEGATIVE; Coccidioides Ab to TP Ag (IgM) NEGATIVE
[2022-09-09 05:52] LABS: Albumin, Serum 3.6 g/dL (3.6-5.1); IgG Index, CSF 0.75 (<0.70); Immunoglobulin G, Serum 1820 mg/dL (600-1540); Myelin Basic Protein, CSF 14.5 mcg/L (<=4.0)
== END 2022-08-30 13:48 | disposition short-term general hospital (02) | DRG 76 ==
LOC: ANHED 10:01 → ANHIMU 12:03
PROVIDERS: Emergency Medicine; Physician Assistant; Admitting Provider Internal Medicine; Emergency Provider Emergency Medicine; PCP Internal Medicine; Visit Provider Family Medicine
DX: A87.9 Viral meningitis, unspecified (principal); K76.82 Hepatic encephalopathy; R56.9 Unspecified convulsions; E03.9 Hypothyroidism, unspecified; E78.5 Hyperlipidemia, unspecified; I10 Essential (primary) hypertension; R73.9 Hyperglycemia, unspecified; Z88.0 Allergy status to penicillin
CPT/HCPCS: 36415; 51702; 62328; 70450; 70496; 70498; 70553; 71045; 72125; 80053; 80307; 81001; 82040; 82042; 82784; 82945; 82948; 83605; 83615; 83735; 83873; 83916; 84157; 84439; 84443; 84480; 84484; 85025; 85027; 85610; 85730; 86403; 86592; 86617; 86635; 86787; 86788; 87015; 87040; 87070; 87102; 87116; 87206; 87255; 87497; 87529; 87798; 88108; 89051; 93005; 93306; 95816; 96361; 96375; 99285; A9270; A9577; J0131; J0133; J1953; J2185; J2405; J3370; J7030; J7060; Q9967

== ENCOUNTER 2022-11-01 14:18 | Outpatient (CLI) | payer MEDICARE, SELFPAY ==
--- NOTE | ~2022-11-01 | MMUS_ITS ---
EXAMINATION: MM diagnostic carmen LT w gautam, US breast LT complete HISTORY: Six-month follow-up of probable benign 9 mm mass of left breast at 6:00 TECHNIQUE: Left full-field and spot 3-D tomosynthesis images were performed and synthetic 2-D images were generated. CAD analysis was submitted and interpreted. High resolution complete left breast ultr asound examination including all 4 quadrants and subareolar area was performed. COMPARISON: 02/10/2022 diagnostic left mammogram and limited left breast ultrasound examination BREAST PARENCHYMAL COMPOSITION: The breasts are heterogeneously dense, which may obscure small masses . FINDINGS: MAMMOGRAPHIC FINDINGS: No suspicious mass, architectural distortion, malignant calcification, skin thickening or retraction is detected. The heterogeneously dense stroma may obscure masses. Ultrasound examination was therefor e performed. ULTRASOUND: 1:00 near nipple: 3 x 4 mm simple cyst with through transmission and posterior enhancement 3:00 3 cm from nipple: Parallel circumscribed sonolucency measuring 2.5 x 2.2 x 5.7 mm, consistent wi th cyst 7:00 near nipple: 7.8 x 9.1 x 5.9 mm circumscribed mildly irregular hypoechoic lesion without interna l vascularity, with through transmission posterior enhancement. This is mildly diminished in size com pared to 8 x 5.8 x 9.1 mm measurement on 02/20/2022. IMPRESSION: 1. Benign findings 2. Routine annual mammographic screening is recommended. BI-RADS Category 2: Benign finding(s). Reviewed, dictated and finalized at location A. IMPRESSION: 1. Benign findings 2. Routine annual mammographic screening is recommended. BI-RADS Category 2: Benign finding(s).
== END 2022-11-01 14:19 | disposition home or self-care (01) ==
LOC: ANHIMG 14:20
PROVIDERS: PCP Internal Medicine; Visit Provider Internal Medicine
DX: N63.24 Unspecified lump in the left breast, lower inner quadrant (principal)
CPT/HCPCS: 76641; 77061; 77065; G0279

== ENCOUNTER 2023-04-06 16:04 | Inpatient (IN) | payer MEDICARE, SELFPAY ==
[2023-04-06] VITALS (12 sets, daily range): BP systolic 119–141; BP diastolic 80–102; PULSE 99–131; RESP 14–27; TEMP 37.6; O2SAT 94–100; BMI 25.0
--- NOTE | ~2023-04-06 | XR_ITS ---
EXAMINATION: XR chest 1V portable DATE: 04/08/2023 20:41 INDICATION: Diminished breath sounds TECHNIQUE: frontal view of the chest was obtained. COMPARISON: Chest radiograph dated 04/08/2023 at 3:00 PM FINDINGS: Improved aeration of the lungs with minimal linear discoid atelectasis at the lateral left lower lung zone and along the right lung base. No new airspace opacities, pulmonary edema, pleural effusion or pneumothorax. The cardiomediastinal silhouette is normal. IMPRESSION: 1. Improved aeration of the lungs with minimal residual discoid atelectasis at the right lung base an d lateral left lower lung zone. Reviewed, dictated and finalized at location A. CER IMPRESSION: 1. Improved aeration of the lungs with minimal residual discoid atelectasis at the right lung base and lateral left lower lung zone.
--- NOTE | ~2023-04-06 | CT_ITS ---
EXAMINATION: CT cervical spine wo con DATE: 04/06/2023 18:03 INDICATION: Neck pain TECHNIQUE: Computed tomography (CT) of the cervical spine was performed without intravenous contrast. Automated exposure control and iterative reconstruction technique were employed. COMPARISON: CT dated 08/29/2022 FINDINGS: Lung apices are unremarkable. Straightening of cervical lordosis. There is mild dextrocurva ture. There is multilevel uncinate and facet hypertrophy, more so on the left. There is chronic anter ior wedge deformity of C5. There is degenerative retrolisthesis at C5-6, stable. No evidence for perc hed facet. Craniovertebral junction is normal. Odontoid process is normal. Emphysematous changes note d in the lung apices. No paraspinal soft tissue abnormality. IMPRESSION: 1. No acute abnormality of the cervical spine. 2: Moderate cervical spondylosis. Reviewed, dictated and finalized at location A.
--- NOTE | ~2023-04-06 | CT_ITS ---
EXAMINATION: CTA brain carotid DATE: 04/06/2023 17:21 CDT INDICATION: Suspected stroke. TECHNIQUE: Computed tomographic angiography (CTA) of the head was performed without and with 100 mL O mnipaque-350 intravenous contrast. CTA of the neck was performed with intravenous contrast. The dose- length product was 1770.51 mGy-cm. Maximum intensity projection and volume rendered 3D-reconstruction s were created by the technologist on a separate workstation. COMPARISON: CT dated 08/29/2022. FINDINGS: HEAD CTA: There is a chronic infarction medial aspect of the right temporal lobe. There is geographic hypodensity in the left temporal lobe, most likely subacute infarction. No ventriculomegaly or midli ne shift. There are scattered mild periventricular and subcortical white matter changes, most likely related to small vessel ischemic disease (microangiopathy). No ventriculomegaly or midline shift. No acute intracranial hemorrhage, mass or mass effect. Paranasal sinuses and mastoids are pneumatized. V ertebral arteries are codominant. No significant stenosis of the basilar artery. The posterior commun icating arteries are normal. No significant stenosis of the internal carotid or anterior or middle ce rebral arteries. Anterior communicating artery is present. No aneurysm. NECK CTA: There is emphysema. No pathologically enlarged lymph nodes. Study limited by motion. Mild p laque in the internal carotid arteries. There is less than 10% stenosis of the proximal right internal carotid artery relative to normal dist al artery lumen diameter (NASCET criteria). There is less than 10% stenosis of the proximal left inte rnal carotid artery relative to normal distal artery lumen diameter. IMPRESSION: 1: Left temporal lobe infarction, possibly subacute. Consider correlation with MRI. 2: Chronic right temporal lobe infarction. 3: No significant intracranial vascular abnormality. 3: No significant abnormality of the carotid arteries. Reviewed, dictated and finalized at location A.
--- NOTE | ~2023-04-06 | CT_ITS ---
EXAMINATION: CT brain wo con DATE: 04/08/2023 20:37 INDICATION: Changes in mentation and lethargy TECHNIQUE: Computed tomography (CT) of the head was performed without intravenous contrast. Sagittal and coronal reconstructions were performed. The dose Carlton The dose-length product was 1362.00 mGy -cm. COMPARISON: head CT head CT angiogram dated 04/06/2023 FINDINGS: Increase in extent of a region of cytotoxic edema throughout the left temporal lobe and also involvin g the posterior insula and left basal ganglia consistent with now subacute infarct. This results in i ncreasing mass effect and near effacement of the temporal horn of the left lateral ventricle. There i s also increasing now 8 mm left to right subfalcine herniation as well as left uncal herniation. No a cute intracranial hemorrhage, new acute infarction or abnormal extra axial fluid collection. No intra cranial mass identified. Changes of right intraocular lens replacement. The orbits and mastoid air ce lls are normal. Mucosal thickening in the left maxillary sinus. IMPRESSION: 1. Worsening cytotoxic edema associated with a left temporal lobe infarct with extension of edema int o the posterior insula and left basal ganglia. This results in increasing mass effect upon the left l ateral ventricle as well as left uncal and subfalcine herniation with no 8 mm left to right midline s hift. Reviewed, dictated and finalized at location A. R OPTICS TECHNICIAN IMPRESSION: 1. Worsening cytotoxic edema associated with a left temporal lobe infarct with extension of edema into the posterior insula and left basal ganglia. This resul ts in increasing mass effect upon the left lateral ventricle as well as left un anu and subfalcine herniation with no 8 mm left to right midline shift.
--- NOTE | ~2023-04-06 | XR_ITS ---
Portable chest x-ray Comparison: 04/08/2023 Clinical History: Tube placement Findings: Endotracheal tube and NG tube are in satisfactory positions. Minimal left basilar haziness noted. Right lung essentially clear. Cardiomediastinal silhouette is stable. Bones and soft tissues are unremarkable. Impression: Support tubes, as above. Minimal left basilar haziness, nonspecific. Reviewed, dictated and finalized at location . T PAROLE OFFICER Impression: Support tubes, as above. Minimal left basilar haziness, nonspecific.
--- NOTE | ~2023-04-06 | XR_ITS ---
EXAMINATION: XR chest 2V DATE: 04/08/2023 15:02 INDICATION: Fever TECHNIQUE: frontal and lateral views of the chest were obtained. COMPARISON: Chest radiograph dated 08/29/2022 and 05/22/2021 FINDINGS: Decreased lung volumes particularly on the lateral projection where there are opacities at the technical illustrator ior lower lung zone which could represent atelectasis or pneumonia. No pleural effusion or pneumothor ax. Heart size is normal accounting for AP technique. Mild thoracic spondylosis. IMPRESSION: 1. Decreased lung volumes with opacities at the dependent lower lung zones which could represent atel ectasis or pneumonia. Reviewed, dictated and finalized at location A. DYEING MACHINE TENDER IMPRESSION: 1. Decreased lung volumes with opacities at the dependent lower lung zones whic h could represent atelectasis or pneumonia.
--- NOTE | ~2023-04-06 | XR_ITS ---
Portable upright view of the abdomen Clinical history: NG tube placement Findings: NG tube is in satisfactory position. Bowel gas pattern is nonspecific. No evidence for obst ruction or free air. No abnormal mass lesion or calcification is seen. Osseous structures are intact. Impression: NG tube in satisfactory position. Reviewed, dictated and finalized at [facility]. G[employer] CONTINUITY Impression: NG tube in satisfactory position.
--- NOTE | 2023-04-06 16:20 | ECG_ITS ---
Measurements Intervals [place] Rate: 135 P: 32 TN: 174 QRS: -23 QRSD: 86 T: 35 QT: 363 QTc: 545 Interpretive Statements SINUS TACHYCARDIA BORDERLINE R WAVE PROGRESSION, ANTERIOR LEADS INFERIOR INFARCT, AGE INDETERMINATE BORDERLINE T WAVE ABNORMALITY- ANTERIOR LEADS BASELINE ARTIFACT- III, AVL, AVF ABNORMAL ECG COMPARED TO ECG 08/29/2022 05:41:02 T WAVE DEVIATION NOW PRESENT Electronically Signed On 04-06-2023 16:43:57 CDT by Husam Craft D.O.
--- NOTE | 2023-04-06 16:36 | ED.GENADULT ---
HPI - General Adult General Chief complaint: Seizure Stated complaint: seizure Time Seen by Provider: 04/06/23 16:23 Source: family History of Present Illness HPI narrative: 67 years old -[place] female with history of seizure, last time was seen by her awake 48 hours ago. Is telling me that patient been sleeping for the last 48 hours, he ran to the bedroom after heard a thud, found the patient on the floor next to her bed, carpeted floor on her right side forming. And unresponsive. Called 911 he does not know the medications of the patient, he reported last seizure was few months ago. Related Data Home Medications Medication Instructions Recorded Confirmed amlodipine 10 mg tablet 10 mg PO DAILY 08/29/22 04/06/23 brimonidine 0.2 % eye drops 1 drp RIGHT EYE BID 08/29/22 04/06/23 latanoprost 0.005 % eye drops 1 drp RIGHT EYE HS 08/29/22 04/06/23 levothyroxine 137 mcg tablet 137 mcg PO DAILY 08/29/22 04/06/23 besifloxacin 0.6 % eye 1 drp RIGHT EYE TID 04/06/23 04/06/23 drops,suspension (Besivance) clobetasol 0.05 % topical ointment 1 applic topical BID 04/06/23 04/06/23 famotidine 20 mg tablet 20 mg PO BID 04/06/23 04/06/23 fluticasone propionate 50 1 spray intranasal DAILY 04/06/23 04/06/23 mcg/actuation nasal spray,suspension hydrochlorothiazide 12.5 mg tablet 12.5 mg PO DAILY 04/06/23 04/06/23 hydroxyzine HCl 10 mg tablet 10 mg PO DAILY PRN Itching 04/06/23 04/06/23 levetiracetam 750 mg tablet 750 mg PO BID 04/06/23 04/06/23 loratadine 10 mg tablet 10 mg PO BID 04/06/23 04/06/23 telmisartan 80 mg tablet 80 mg PO DAILY 04/06/23 04/06/23 Allergies Allergy/AdvReac Type Severity Reaction Status Date / Time Cephalosporins Allergy Unknown Unknown Verified 04/06/23 16:29 Penicillins Allergy Unknown Unknown Verified 04/06/23 16:29 Quinolones Allergy Unknown Unknown Verified 04/06/23 16:29 Sulfa (Sulfonamide Allergy Unknown Unknown Verified 04/06/23 16:29 Antibiotics) Review of Systems Review of Systems: ROS unobtainable: Yes unobtainable due to medical condition and unobtainable due to mental status PMFSH Past Medical History Medical History Hyperlipidemia Hypertension Hypothyroidism Surgical History Surgical History Surgical history unknown Family History Family History (Updated 04/06/23 @ 21:03 by Caity Lee RN) Mother Hypertension Cerebrovascular accident Sibling Family history of lung cancer Seizure Social History Social History Social History: Surrogate medical decision maker: Kale Yo, spouse. Code status: Full code. Smoking status: Former smoker Second hand tobacco smoke exposure: No Alcohol intake: never Drinks per week: 2 Substance use: never Substance use type: does not use Lack of Transportation: No Lack of Food: Never True Current Housing: I Have Housing Concerned About Future Housing: No Difficulty Paying Gas/Electric Bills: No Difficulty Paying for Meds: No Currently Unemployed: No Education: Master's Degree or Higher Difficulty w/ Childcare or Family Care: No Additional living arrangements comments: Lives with spouse in [place]. Additional occupation/education comments: Works for [employer]. Spiritual care concerns: No Exam Narrative: General appearance: Well-developed, well-nourished, unresponsive, gazing to the left Skin: Normal color Head: Normocephalic, nontraumatic Eyes: Clear conjunctiva ENT: Oropharynx normal, ears normal, nose normal Neck: Supple, nontender Chest and respiratory: Airway patent, no respiratory distress, no accessory muscle use Heart: Regular rate/rhythm Abdomen: Soft, nontender, no organomegaly, quiet bowel sounds Vascular: Normal peripheral pulses, normal capillary refill. Musculoskeletal: Right upper and right lower extrem
[2023-04-06 16:37] LABS: Basophils Percent Auto 0.5 % (0.2-1.2); Hematocrit 36.8 % (37.0-47.0); Hemoglobin 12.1 g/dL (12.0-15.0); Immature Granulocyte Absolute 0.03 K/mm3 (0.00-0.031); Immature Granulocyte Percent A 0.4 % (0-0.5); Lymphocytes Absolute Auto 1.08 K/mm3 (0.9-3.2); Lymphocytes Percent Auto 12.8 % (18.3-44.2); Mean Corpuscular HGB Conc 32.9 g/dl (32-36); Mean Corpuscular Hemoglobin 29.4 pg (26-34); Mean Corpuscular Volume 89.3 fl (80-100); Mean Platelet Volume 9.4 fl (7.4-10.4); Monocytes Absolute Auto 0.6 K/mm3 (0.1-0.6); Monocytes Percent Auto 6.5 % (2.6-8.5); Neutrophils Absolute Auto 6.7 K/mm3 (1.3-6.7); Neutrophils Percent Auto 79.8 % (45.5-73.1); Platelet Count Result 239 k/mm3 (150-375); Red Blood Count 4.12 M/mm3 (4.2-5.4); Red Cell Distribution Width 12.7 % (11.5-14.5); White Blood Count 8.4 K/mm3 (4.5-10.0)
[2023-04-06 16:49] LABS: Alanine Aminotransferase 19 U/L (6-35); Albumin Level 4.6 g/dL (3.5-5.1); Alkaline Phosphatase 100 U/L (38-126); Anion Gap 15 mmol/L (8-16); Aspartate Amino Transferase 30 U/L (14-36); Bilirubin,Total 0.7 mg/dL (0.2-1.3); Blood Urea Nitrogen 7 mg/dL (7-17); Calcium 9.6 mg/dL (8.4-10.2); Carbon Dioxide 19 mmol/L (22-30); Chloride 94 mmol/L (98-107); Estimated CRCL calculation 61 ml/min; Estimated Glomerular Filt Rate > 60; Glucose 154 mg/dL (65-110); Potassium 3.5 mmol/L (3.4-5.0); Sodium 128 mmol/L (137-145)
[2023-04-06 16:55] LABS: Prothrombin Time 13.4 Seconds (11.1-14.7)
[2023-04-06 16:56] LABS: Partial Thromboplastin Time 31.5 SECONDS (22.3-36.8)
[2023-04-06 16:56] LABS: Estimated CRCL calculation 69 ml/min; Estimated Glomerular Filt Rate > 60
[2023-04-06] MEDS: diazePAM INJ (*CRX) 10 MG/2 ML SYRINGE 5 MG IV PUSH ×3 (17:35→18:35)
[2023-04-06] MEDS: levETIRAcetam 1000MG/NACL100ML 1,000 MG/100 ML BAG 400 MG IVPB (17:35)
--- NOTE | 2023-04-06 17:37 | PC.NURSE ---
came out of Pt room and notified this RN that pt was having a seizure, this RN went into pt room and turned her on her side. EDP notified and came to bedside where he gave VORB for 1 gram keppra IV and 5mg valium IVP. Seizure lasted approximately 1 minute, oral suction was used. pt postictle at this time.
--- NOTE | 2023-04-06 18:12 | PC.NURSE ---
came to nurses station and notified this RN that pt was having another seizure at 180. This nurse went into pt room, turned pt on her side. EDP Dr. Ragsdale notified and he gave VORB for 5mg valium IVP. Which was administered at 180. Seizure lasted until 180 and oral suction was used. Pt postictle.
--- NOTE | 2023-04-06 18:31 | PC.NURSE ---
came to nurses station and notified this RN that pt was having another seizure at 1822. This nurse went into pt room, turned pt on her side. EDP Dr. Ragsdale notified and at bedside he gave VORB for 5mg valium IVP. Which was administered at 1825. Seizure lasted until 1826 and oral suction was used. Pt postictle
[2023-04-06] MEDS: SODIUM CHLORIDE 0.9% IV 1,000 ML 125 ML IV CONT (18:41)
[2023-04-06] MEDS: ASPIRIN 300 MG SUPPOSITORY RECTAL (18:58)
[2023-04-06 19:10] LABS: Appearance Urine Clear (Clear); Bacteria Urine None Seen /hpf; Bilirubin Urine Negative (Negative); Blood Urine Negative (Negative); Color Urine Yellow (Yellow); Glucose Urine UA Negative (Negative); Ketones Urine Negative (Negative); Leukocyte Esterase Ur Negative LEU/UL (Negative); Nitrate Urine Negative (Negative); Protein Urine 1+ mg/dL (Negative); RBC Urine 0-2 /hpf (0-2); Squamous Epithelial Cell Urine None seen /hpf (Few); Urobilinogen Urine 0.2 mg/dL (<2.0); WBC Urine 0-5 /hpf
[2023-04-06 19:22] LABS: Add Urine Microscopic? YES; Specific Grav Ur 1.058 (1.001-1.035)
--- NOTE | 2023-04-06 20:13 | PM.IMHP ---
H&P: HPI History of Present Illness Date/Time: 04/06/23 20:13 Chief Complaint: ams Narrative: THIS IS A 67-YEAR-OLD FEMALE WITH PAST MEDICAL HISTORY SIGNIFICANT FOR SEIZURE DISORDER, HYPERTENSION, GLAUCOMA, PATIENT WAS BROUGHT TO THE EMERGENCY ROOM AFTER SHE WAS FOUND BY HER UNRESPONSIVE LAYING ON THE FLOOR BY HER BEDSIDE LAST TIME SEEN NORMAL 48 HOURS BEFORE THESE. PRELIMINARY WORKUP WAS SIGNIFICANT FOR SUBACUTE STROKE. Patient was unable to provide any history due to speech disturbance patient speaking gibberish. EXAMINATION: CTA brain carotid DATE: 04/06/2023 17:21 CDT INDICATION: Suspected stroke. TECHNIQUE: Computed tomographic angiography (CTA) of the head was performed without and with 100 mL Omnipaque-350 intravenous contrast. CTA of the neck was performed with intravenous contrast. The dose-length product was 1770.51 mGy-cm. Maximum intensity projection and volume rendered 3D-reconstructions were created by the technologist on a separate workstation. COMPARISON: CT dated 08/29/2022. FINDINGS: HEAD CTA: There is a chronic infarction medial aspect of the right temporal lobe. There is geographic hypodensity in the left temporal lobe, most likely subacute infarction. No ventriculomegaly or midline shift. There are scattered mild periventricular and subcortical white matter changes, most likely related to small vessel ischemic disease (microangiopathy). No ventriculomegaly or midline shift. No acute intracranial hemorrhage, mass or mass effect. Paranasal sinuses and mastoids are pneumatized. Vertebral arteries are codominant. No significant stenosis of the basilar artery. The posterior communicating arteries are normal. No significant stenosis of the internal carotid or anterior or middle cerebral arteries. Anterior communicating artery is present. No aneurysm. NECK CTA: There is emphysema. No pathologically enlarged lymph nodes. Study limited by motion. Mild plaque in the internal carotid arteries. There is less than 10% stenosis of the proximal right internal carotid artery relative to normal distal artery lumen diameter (NASCET criteria). There is less than 10% stenosis of the proximal left internal carotid artery relative to normal distal artery lumen diameter. IMPRESSION: 1: Left temporal lobe infarction, possibly subacute. Consider correlation with MRI. 2:? Chronic right temporal lobe infarction. 3: No significant intracranial vascular abnormality. 3: No significant abnormality of the carotid arteries. EXAMINATION: CT cervical spine wo con DATE: 04/06/2023 18:03 INDICATION: Neck pain TECHNIQUE: Computed tomography (CT) of the cervical spine was performed without intravenous contrast. Automated exposure control and iterative reconstruction technique were employed. COMPARISON: CT dated 08/29/2022 FINDINGS: Lung apices are unremarkable. Straightening of cervical lordosis. There is mild dextrocurvature. There is multilevel uncinate and facet hypertrophy, more so on the left. There is chronic anterior wedge deformity of C5. There is degenerative retrolisthesis at C5-6, stable. No evidence for perched facet. Craniovertebral junction is normal. Odontoid process is normal. Emphysematous changes noted in the lung apices. No paraspinal soft tissue abnormality. IMPRESSION: 1. No acute abnormality of the cervical spine. 2:? Moderate cervical spondylosis. Review of Systems Review of Systems: ROS unobtainable: Yes other (SPEECH DISTURBANCE/ MOTOR APHASIA) [facility] Past Medical History Medical History Hyperlipidemia Hypertension Hypothyroidism Surgical History Surgical History Surgical history unknown Family History Family History (Updated 04/06/23 @ 21:03 by Caity Lee RN) Mother Hypertension Cerebrovascular accident Sibling Family history of lung cancer Seizure Social History Social Histor
--- NOTE | 2023-04-06 20:52 | ADMGEN ---
This patient, Toña Yo, was admitted to Medical Room 244-. Patient/family oriented to hospital policies and general routines including ID bracelet, bed and alarms, visiting hours, pain management, procedures, bathroom and other care routines, personal items, smoking policy, room service/diet, and visiting hours. Information on how to activate the Rapid Response Team has been discussed. Patient/Family are encouraged to report perceived risks to care and to ask questions if they do not understand what they are told or what they should do.
[2023-04-07] VITALS (10 sets, daily range): BP systolic 110–153; BP diastolic 54–83; PULSE 76–97; RESP 16–20; TEMP 36.9–37.6; O2SAT 100
[2023-04-07] MEDS: SODIUM CHLORIDE 0.9% IV 1,000 ML 125 ML IV CONT ×3 (04:33→23:29)
[2023-04-07] MEDS: HYDROmorphone HCL INJ (*CRX) 1 MG/ML SYR 0.5 MG IV PUSH (04:33)
[2023-04-07 04:57] LABS: Hematocrit 37.1 % (37.0-47.0); Hemoglobin 11.7 g/dL (12.0-15.0); Mean Corpuscular HGB Conc 31.5 g/dl (32-36); Mean Corpuscular Hemoglobin 28.8 pg (26-34); Mean Corpuscular Volume 91.4 fl (80-100); Platelet Count Result 196 k/mm3 (150-375); Red Blood Count 4.06 M/mm3 (4.2-5.4); Red Cell Distribution Width 12.8 % (11.5-14.5); White Blood Count 6.6 K/mm3 (4.5-10.0)
[2023-04-07 05:07] LABS: Anion Gap 8 mmol/L (8-16); Blood Urea Nitrogen 7 mg/dL (7-17); Calcium 9.2 mg/dL (8.4-10.2); Carbon Dioxide 23 mmol/L (22-30); Chloride 99 mmol/L (98-107); Estimated CRCL calculation 80 ml/min; Estimated Glomerular Filt Rate > 60; Glucose 93 mg/dL (65-110); Potassium 3.4 mmol/L (3.4-5.0); Sodium 130 mmol/L (137-145)
--- NOTE | 2023-04-07 10:31 | PCSTNOTE ---
Please refer to the Bedside Swallow Evaluation in the EMR. Please note, silent aspiration cannot be ruled out at bedside.
--- NOTE | 2023-04-07 10:48 | PM.IMPN ---
Progress Note: A&P Assessment and Plan (1) Acute cerebrovascular accident (CVA): Code(s): I63.9 - Cerebral infarction, unspecified Status: Acute Assessment and Plan: visible on CT (left temporal subacute and right temporal chronic) and unable to do MRI due to claustrophobia continue aspirin, statin ARB with permissive hypertension monitor on telemetry PT, OT, and ST (2) Recurrent seizures: Code(s): G40.909 - Epilepsy, unspecified, not intractable, without status epilepticus Status: Acute Assessment and Plan: continue levetiracetam and p.r.n. lorazepam (3) Altered mental status: Code(s): R41.82 - Altered mental status, unspecified Status: Acute Assessment and Plan: Due to stroke, seziures (4) Hyponatremia: Code(s): E87.1 - Hypo-osmolality and hyponatremia Status: Acute Assessment and Plan: approach to be chronic and mild 04/06 3 sodium 130 Subjective Date/time seen: 04/07/23 10:48 Interval history: Admitted April 06 with stroke and seizure. History of hypertension and prior stroke with seizures. Had 2 witnessed seizures in the days prior to admission as well as increased visual and short-term memory issues. History is obtained from chart and talking to staff anesthesiologist bedside as patient is unable to provide history. Review of Systems Review of Systems: ROS unobtainable: Yes unobtainable due to medical condition Exam Narrative: HEENT: PERRL, sclerae nonicteric, pharyngeal mucosa pink and intact NECK: No JVD, adenopathy, or thyromegaly CHEST: Clear to auscultation. Normal effort. HEART: NL S1/S2, regular, no murmur ABDOMEN: BS+, soft, nontender, no mass, no bruits EXTREMITIES: No cyanosis, edema, or clubbing NEUROLOGIC: CN intact and symmetric to inspection. MUSCULOSKELETAL: Tone and strength symmetric. PSYCH: Alert. Oriented to person, unclear with appropriate place or time. Follows simple commands. Objective Data Vital Signs Vital Signs: Vital Signs - 24 hr 04/06/23 16:00 04/06/23 16:18 04/06/23 17:40 Temperature 99.6 F Pulse Rate 117 H Respiratory Rate 16 Blood Pressure 137/98 H Pulse Oximetry 98 98 98 Oxygen Delivery Room Air Room Air Room Air 04/06/23 17:47 04/06/23 18:14 04/06/23 18:14 Temperature Pulse Rate 130 H 131 H Respiratory Rate 27 H 24 H Blood Pressure 132/102 H 129/95 H Pulse Oximetry 98 98 98 Oxygen Delivery Room Air 04/06/23 18:22 04/06/23 18:32 04/06/23 18:36 Temperature Pulse Rate 126 H 125 H Respiratory Rate 18 27 H Blood Pressure 134/95 H 126/90 Pulse Oximetry 99 94 96 Oxygen Delivery Room Air 04/06/23 19:01 04/06/23 20:00 04/06/23 21:08 Temperature 99.7 F H Pulse Rate 118 H 99 Respiratory Rate 16 14 Blood Pressure 141/91 H 119/80 Pulse Oximetry 98 100 100 Oxygen Delivery Room Air 04/06/23 21:05 04/06/23 21:00 04/07/23 00:00 Temperature 99.2 F Pulse Rate 99 85 Respiratory Rate 16 Blood Pressure 110/67 Pulse Oximetry 100 Oxygen Delivery Room Air 04/07/23 00:00 04/07/23 04:00 04/07/23 04:00 Temperature 99.6 F Pulse Rate 87 83 84 Respiratory Rate 20 Blood Pressure 153/73 H Pulse Oximetry 100 Oxygen Delivery Intake/Output Intake/Output: Intake & Output 04/04/23 04/05/23 04/06/23 04/07/23 23:59 23:59 23:59 23:59 Intake Total 100 1000 Output Total 400 700 Balance -300 300 Meds/Results Medications: Active Medications Generic Name Dose Route Start Last Admin Trade Name Freq PRN Reason Stop Dose Admin Amlodipine Besylate 10 mg 04/07/23 09:00 Amlodipine Besylate 5 Mg Tablet PO DAILY DUNCAN Aspirin 81 mg 04/07/23 08:00 Aspirin 81 Mg Chewable Tablet PO DAILY@0800 DUNCAN Brimonidine Tartrate 1 drop 04/07/23 09:00 Brimonidine Tartrate 0.2% Op Soln 5 Ml Btl RIGHT EYE BID DUNCAN Famotidine 20 mg 04/07/23 09:00 Famotidine 20 Mg Tablet PO BID SC
[2023-04-07] MEDS: ASPIRIN 81 MG CHEWABLE TABLET PO (12:21)
[2023-04-07] MEDS: amLODIPine BESYLATE 5 MG TABLET 10 MG PO (12:21)
[2023-04-07] MEDS: LORATADINE 10 MG TABLET PO (12:22)
[2023-04-07] MEDS: levETIRAcetam 250 MG TABLET 750 MG PO ×2 (12:22→19:34)
[2023-04-07] MEDS: FAMOTIDINE 20 MG TABLET PO ×2 (12:22→19:35)
[2023-04-07] MEDS: FLUTICASONE PROPIONATE 0.05% NA SPR 16 GM BTL (*BKC) 2 SPRAY NASAL (12:22)
[2023-04-07] MEDS: BRIMONIDINE TARTRATE 0.2% OP SOLN 5 ML BTL 1 DROP RIGHT EYE ×2 (12:23→19:35)
[2023-04-07] MEDS: TELMISARTAN 40 MG TABLET 80 MG PO (12:23)
--- NOTE | 2023-04-07 13:03 | WPDNEURCNPN ---
Assessment and Plan Assessment and plan (1) Recurrent seizures: Code(s): G40.909 - Epilepsy, unspecified, not intractable, without status epilepticus Status: Acute Plan 1 status post stroke documented by the CTA involving left temporal lobe possibly subacute in addition to chronic right temporal lobe infarction. Last MRI in August of this year documented the medial right temporal lobe stroke as well with abnormal CTA documenting acute infarct in the right temporal. Anticonvulsant that is Keppra will be continued as such an EEG will be obtained in addition to repeat MRI for further clarification Consult date: 04/07/23 HPI: Toña Yo is a 67 year old female admitted to the hospital through the emergency room with ongoing diagnosis of seizure. Reportedly she was seen by awake about 48 hours ago and she had been sleeping for that long he heard a 3rd ran to the bedroom found the patient on the floor next to her bed unresponsive 911 called to the scene patient reportedly had a seizure a few months ago as well. Her medications include alprazolam 0.25 mg p.r.n., amlodipine 10 mg daily, levothyroxine 137 micro g tablet daily losartan 100 mg daily meloxicam 50 mg daily pravastatin 40 mg daily. She is allergic to multiple medications as outlined. Is currently alcohol intake or 2 drinks per week but not smoke initial exam in the emergency room documented her being unresponsive with postictal status vital signs were normal CTA documented left temporal lobe infarction of subacute in nature laundry chronic right temporal lobe infarction as well but no bleed he was admitted to the hospital for further evaluation CT scan of cervical spine was also done which revealed moderate cervical spondylosis but no fracture or dislocation patient has obviously been admitted for the recurrence of the generalized seizures and with the documented abnormal pre and she was started on a levetiracetam 750 mg p.o. b.i.d. with seizure precautions but other medications were left as such [facility] Past Medical History Medical History Hyperlipidemia Hypertension Hypothyroidism Surgical History Surgical History Surgical history unknown Family History Family History (Updated 04/06/23 @ 21:03 by Caity Lee RN) Mother Hypertension Cerebrovascular accident Sibling Family history of lung cancer Seizure Social History Social History Social History: Surrogate medical decision maker: Kale Yo, spouse. Code status: Full code. Smoking status: Former smoker Second hand tobacco smoke exposure: No Alcohol intake: never Drinks per week: 2 Substance use: never Substance use type: does not use Lack of Transportation: No Lack of Food: Never True Current Housing: I Have Housing Concerned About Future Housing: No Difficulty Paying Gas/Electric Bills: No Difficulty Paying for Meds: No Currently Unemployed: No Education: Master's Degree or Higher Difficulty w/ Childcare or Family Care: No Additional living arrangements comments: Lives with spouse in [place]. Additional occupation/education comments: Works for [employer]. Spiritual care concerns: No Meds Home Medications and Allergies Home Medications Medication Instructions Recorded Confirmed Type amlodipine 10 mg tablet 10 mg PO DAILY 08/29/22 04/06/23 History brimonidine 0.2 % eye drops 1 drp RIGHT EYE BID 08/29/22 04/06/23 History latanoprost 0.005 % eye drops 1 drp RIGHT EYE HS 08/29/22 04/06/23 History levothyroxine 137 mcg tablet 137 mcg PO DAILY 08/29/22 04/06/23 History besifloxacin 0.6 % eye 1 drp RIGHT EYE TID 04/06/23 04/06/23 History drops,suspension (Besivance) clobetasol 0.05 % topical ointment 1 applic topical BID 04/06/23 04/06/23 History famotidine 20 mg tablet 20 mg PO BID 11
[2023-04-07] MEDS: LATANOPROST 0.005% OP SOLN 2.5 ML BTL 1 DROP RIGHT EYE (19:35)
[2023-04-08] VITALS (9 sets, daily range): BP systolic 129–147; BP diastolic 72–101; PULSE 82–117; RESP 16–20; TEMP 36.9–38.8; O2SAT 97–100
--- NOTE | 2023-04-08 03:15 | PC.NURSE ---
Daylight Savings Time For Daylight Savings Time Ending in the Fall - Clocks are moved back. For Daylight Savings Time Beginning in the Spring - Clocks are moved ahead. For [facility], the time of change occurs at 0200 hrs. Time is taken from the breakfast server. This entry on the patient's chart recognizes the change in time reflected during documentation. Example: 2 entries for vital signs may be charted for 0200 hrs.
[2023-04-08] MEDS: LEVOTHYROXINE SODIUM 25 MCG TABLET PO (05:14)
[2023-04-08] MEDS: LEVOTHYROXINE SODIUM 112 MCG TABLET PO (05:14)
[2023-04-08] MEDS: SODIUM CHLORIDE 0.9% IV 1,000 ML 125 ML IV CONT (05:17)
[2023-04-08 05:51] LABS: Anion Gap 10 mmol/L (8-16); Blood Urea Nitrogen 4 mg/dL (7-17); Carbon Dioxide 23 mmol/L (22-30); Chloride 98 mmol/L (98-107); Cholesterol 187 mg/dL (0-200); Estimated CRCL calculation 80 ml/min; Estimated Glomerular Filt Rate > 60; Glucose 95 mg/dL (65-110); HDL Direct 48 mg/dL; Potassium 3.3 mmol/L (3.4-5.0); Sodium 131 mmol/L (137-145); Triglycerides 53 mg/dL (<150)
[2023-04-08 06:02] LABS: LDL Cholesterol Direct 94 mg/dL
--- NOTE | 2023-04-08 07:48 | PCOTNOTE ---
Attempted OT eval, patient declined at this time and asked to come back later. Will follow.
--- NOTE | 2023-04-08 08:58 | PM.IMPN ---
Progress Note: A&P Assessment and Plan (1) Acute cerebrovascular accident (CVA): Code(s): I63.9 - Cerebral infarction, unspecified Status: Acute Assessment and Plan: visible on CT (left temporal subacute and right temporal chronic) and unable to do MRI due to claustrophobia continue aspirin, statin ARB with permissive hypertension monitor on telemetry PT, OT, and ST (2) Recurrent seizures: Code(s): G40.909 - Epilepsy, unspecified, not intractable, without status epilepticus Status: Acute Assessment and Plan: continue levetiracetam and p.r.n. lorazepam (3) Altered mental status: Code(s): R41.82 - Altered mental status, unspecified Status: Acute Assessment and Plan: Due to stroke, seziures (4) Hyponatremia: Code(s): E87.1 - Hypo-osmolality and hyponatremia Status: Acute Assessment and Plan: appears to be chronic and mild 04/07 sodium 130, 04/08 131 (5) Hypokalemia: Code(s): E87.6 - Hypokalemia Status: Acute Assessment and Plan: Stop IV NS, encourage po intake, KCL 40 mEq PO x1 (6) Hypertension: Code(s): I10 - Essential (primary) hypertension Status: Acute Assessment and Plan: 04/08 138/79 Subjective Date/time seen: 04/08/23 08:58 Interval history: No complaints this morning. A bit more alert. No further seizures. Denied pain. Denied shortness of breath. Review of Systems Review of Systems: ROS unobtainable: Yes unobtainable due to medical condition Exam Narrative: HEENT: PERRL, sclerae nonicteric, pharyngeal mucosa pink and intact NECK: No JVD, adenopathy, or thyromegaly CHEST: Clear to auscultation. Normal effort. HEART: NL S1/S2, regular, no murmur ABDOMEN: BS+, soft, nontender, no mass, no bruits EXTREMITIES: No cyanosis, edema, or clubbing NEUROLOGIC: CN intact and symmetric to inspection. MUSCULOSKELETAL: Tone and strength with slight decreased right application security consultant vs left. PSYCH: Alert. Oriented to person, not to place or time. Follows simple commands. Objective Data Vital Signs Vital Signs: Vital Signs - 24 hr 04/07/23 12:19 04/07/23 15:07 04/07/23 16:00 Temperature 98.5 F Pulse Rate 83 86 Respiratory Rate 20 Blood Pressure 135/83 126/71 Pulse Oximetry 100 Oxygen Delivery Room Air 04/07/23 12:00 04/07/23 16:00 04/07/23 19:46 Temperature 99.5 F Pulse Rate 91 97 84 Respiratory Rate 20 Blood Pressure 112/72 Pulse Oximetry 100 Oxygen Delivery 04/07/23 19:55 04/07/23 20:00 04/07/23 23:29 Temperature 99.2 F Pulse Rate 88 83 Respiratory Rate 20 Blood Pressure 120/54 L Pulse Oximetry 100 Oxygen Delivery Room Air 04/08/23 00:00 04/08/23 04:00 04/08/23 04:00 Temperature 99.1 F Pulse Rate 82 91 93 Respiratory Rate 16 Blood Pressure 138/79 Pulse Oximetry 97 Oxygen Delivery Intake/Output Intake/Output: Intake & Output 04/05/23 04/06/23 04/07/23 04/08/23 23:59 23:59 23:59 22:59 Intake Total 100 3240 1300 Output Total 400 2900 1300 Balance -300 340 0 Meds/Results Medications: Active Medications Generic Name Dose Route Start Last Admin Trade Name Freq PRN Reason Stop Dose Admin Amlodipine Besylate 10 mg 04/07/23 09:00 04/07/23 12:21 Amlodipine Besylate 5 Mg Tablet PO 10 mg DAILY PENDING SALE TO [facility] Administration Aspirin 81 mg 04/07/23 08:00 04/07/23 12:21 Aspirin 81 Mg Chewable Tablet PO 81 mg DAILY@0800 PENDING SALE TO [facility] Administration Atorvastatin Calcium 40 mg 04/08/23 09:00 Atorvastatin 40 Mg Tablet PO DAILY PENDING SALE TO [facility] Brimonidine Tartrate 1 drop 04/07/23 09:00 04/07/23 19:35 Brimonidine Tartrate 0.2% Op Soln 5 Ml Btl RIGHT EYE 1 drop BID PENDING SALE TO [facility] Administration Enoxaparin Sodium 40 mg 04/08/23 09:00 Enoxaparin 40 Mg/0.4 Ml Syringe SUB-Q DAILY PENDING SALE TO [facility] Famotidine 20 mg 04/07/23 09:00 04/07/23 19:35 Famotidine 20 Mg Tablet PO 20 mg BID PENDING SALE TO [facility] Administratio
[2023-04-08] MEDS: ASPIRIN 81 MG CHEWABLE TABLET PO (09:27)
[2023-04-08] MEDS: amLODIPine BESYLATE 5 MG TABLET 10 MG PO (09:27)
[2023-04-08] MEDS: ATORVASTATIN 40 MG TABLET PO (09:27)
[2023-04-08] MEDS: FAMOTIDINE 20 MG TABLET PO ×2 (09:28→17:48)
[2023-04-08] MEDS: LORATADINE 10 MG TABLET PO (09:28)
[2023-04-08] MEDS: TELMISARTAN 40 MG TABLET 80 MG PO (09:28)
[2023-04-08] MEDS: levETIRAcetam 250 MG TABLET 750 MG PO ×2 (09:28→20:48)
[2023-04-08] MEDS: POTASSIUM CHLORIDE 20 MEQ PACKET (FOR LIQUID) 40 MEQ PO (09:29)
[2023-04-08] MEDS: ENOXAPARIN 40 MG/0.4 ML SYRINGE SUB-Q (09:30)
[2023-04-08] MEDS: BRIMONIDINE TARTRATE 0.2% OP SOLN 5 ML BTL 1 DROP RIGHT EYE ×2 (09:30→17:47)
[2023-04-08] MEDS: FLUTICASONE PROPIONATE 0.05% NA SPR 16 GM BTL (*BKC) 2 SPRAY NASAL (09:30)
[2023-04-08] MEDS: CLINDAMYCIN 300 MG in DEXTROSE 5% IN WATER 50 ML 104 MG IVPB (17:48)
[2023-04-08 18:20] LABS: Appearance Urine Clear (Clear); Bilirubin Urine Negative (Negative); Blood Urine Negative (Negative); Color Urine Yellow (Yellow); Glucose Urine UA Negative (Negative); Ketones Urine 1+ mg/dL (Negative); Leukocyte Esterase Ur Negative LEU/UL (Negative); Nitrate Urine Negative (Negative); Protein Urine Negative (Negative); Specific Grav Ur 1.012 (1.001-1.035)
[2023-04-08 18:40] LABS: Add Urine Microscopic? NO
[2023-04-08] MEDS: LATANOPROST 0.005% OP SOLN 2.5 ML BTL 1 DROP RIGHT EYE (20:49)
[2023-04-08 21:03] LABS: Alveolar/Arterial O2 Gradient 40.8 mmHg; Base Excess ABG -0.1 mEq/l (+/-2.0); Fractional Inspired Oxygen 21 %; HCO3 ABG 22.1 mEq/l (22.0-26.0); Oxygen Saturation ABG 96.2 % (95.0-100.0); Oxyhemoglobin 94.9 % THb (90.0-100.0); PO2 ABG 74.2 mmHg (80.0-100.0); PO2 FiO2 Ratio Arterial Blood 3.53 %; Total Hemoglobin 12.7 g/dL (12.0-18.0)
[2023-04-08 21:04] LABS: Device ROOM AIR; Modified Allen's Test Pass; Site Drawn LEFT RADIAL
[2023-04-08 21:05] LABS: Basophils Percent Auto 0.4 % (0.2-1.2); Eosinophils Absolute Auto 0.1 K/mm3 (0-0.3); Eosinophils Percent Auto 0.7 % (0-4.4); Hematocrit 35.8 % (37.0-47.0); Hemoglobin 11.7 g/dL (12.0-15.0); Immature Granulocyte Absolute 0.01 K/mm3 (0.00-0.031); Immature Granulocyte Percent A 0.1 % (0-0.5); Lymphocytes Absolute Auto 1.43 K/mm3 (0.9-3.2); Mean Corpuscular HGB Conc 32.7 g/dl (32-36); Mean Corpuscular Hemoglobin 28.7 pg (26-34); Mean Platelet Volume 8.8 fl (7.4-10.4); Monocytes Absolute Auto 0.9 K/mm3 (0.1-0.6); Monocytes Percent Auto 9.8 % (2.6-8.5); Neutrophils Absolute Auto 6.5 K/mm3 (1.3-6.7); Platelet Count Result 205 k/mm3 (150-375); Red Blood Count 4.07 M/mm3 (4.2-5.4); Red Cell Distribution Width 12.5 % (11.5-14.5); White Blood Count 8.9 K/mm3 (4.5-10.0)
[2023-04-08 21:16] LABS: Partial Thromboplastin Time 38.5 SECONDS (22.3-36.8)
[2023-04-08 21:19] LABS: Anion Gap 12 mmol/L (8-16); Blood Urea Nitrogen 6 mg/dL (7-17); Calcium 9.3 mg/dL (8.4-10.2); Carbon Dioxide 19 mmol/L (22-30); Chloride 95 mmol/L (98-107); Estimated CRCL calculation 94 ml/min; Estimated Glomerular Filt Rate > 60; Glucose 115 mg/dL (65-110); Lactic Acid Reflex 0.8 mmol/L (0.7-2.0); Potassium 3.5 mmol/L (3.4-5.0); Sodium 126 mmol/L (137-145)
--- NOTE | 2023-04-08 21:44 | PC.NURSE ---
Spoke to Kale about patient condition and explained that she has had a decline and that she had a CT done that was abnormal and she would be transferred to ICU.
--- NOTE | 2023-04-08 21:49 | P.RRN_ITS ---
Critical Care Event Note Summary Code activated: No Narrative: I was called to evaluate patient after at shift change was noted a significant change in patient's status was minimally responsive. Objective: Patient laying in bed, response to painful stimuli by grimacing and withdrawing Subjective: Patient only answers yes or no General: Patient is laying in bed, stuporous HEENT: Atraumatic normocephalic pupils are 3 mm in diameter bilaterally a slow circular nystagmus is noted, neck is supple no JVD, no lymphadenopathy Respiratory: Clear to auscultation bilaterally Cardiovascular: S1-S2 heard no murmurs rubs or gallops tachycardia Abdomen: Soft nontender nondistended no hepatosplenomegaly Extremities: No edema, no cyanosis Central nervous system: Stuporous, withdraws and grimaces to painful stimuli face is symmetric Skin: Intact Assessment and plan: 1.AMS: CT OF THE HEAD SHOWS EDEMA WITH HERNIATION AND MIDLINE SHIFT.PATIENT PLACED ON VENTILATOR SUPPORT HAS BEEN DISCUSSED WITH STROKE TEAM AT [facility], NEUROSURGERY. PATIENT IS BEING TRANSFERRED TO [facility] AFTER, DISCUSSED WITH STROKE SPECIALIST, NEUROSURGERY. EXAMINATION: CT brain wo con DATE: 04/08/2023 20:37 INDICATION: Changes in mentation and lethargy TECHNIQUE: Computed tomography (CT) of the head was performed without intravenous contrast. Sagittal and coronal reconstructions were performed. The dose Carlton The dose-length product was 1362.00 mGy-cm. COMPARISON: head CT head CT angiogram dated 04/06/2023 FINDINGS: Increase in extent of a region of cytotoxic edema throughout the left temporal lobe and also involving the posterior insula and left basal ganglia consistent with now subacute infarct. This results in increasing mass effect and near effacement of the temporal horn of the left lateral ventricle. There is also increasing now 8 mm left to right subfalcine herniation as well as left uncal herniation. No acute intracranial hemorrhage, new acute infarction or abnormal extra axial fluid collection. No intracranial mass identified. Changes of right intraocular lens replacement. The orbits and mastoid air cells are normal. Mucosal thickening in the left maxillary sinus. IMPRESSION: 1. Worsening cytotoxic edema associated with a left temporal lobe infarct with extension of edema into the posterior insula and left basal ganglia. This results in increasing mass effect upon the left lateral ventricle as well as left uncal and subfalcine herniation with no 8 mm left to right midline shift. This case had a high probability of a clinically significant, sudden, or life threatening deterioration of this patient's condition which required my full and direct attention, intervention and personal management. Critical care time: 195 mins or longer
--- NOTE | 2023-04-08 22:36 | PC.NURSE ---
Spoke to Kale and informed that she would move ICU room 3 and transferred to [facility] when they have a bed available.
--- NOTE | 2023-04-08 22:57 | PC.NURSE ---
Pt transferred to ICU 3 report given to Leha IVORY.
[2023-04-08] MEDS: DEXTROSE 5%/0.9% SOD CHL 1,000 ML 50 ML IV CONT (23:17)
[2023-04-08] MEDS: ETOMIDATE 20 MG/10 ML AMPUL 15 MG IV PUSH (23:36)
[2023-04-08] MEDS: ROCURONIUM BROMIDE 50 MG/5 ML VIAL 60 MG IV PUSH (23:38)
[2023-04-09 00:13] VITALS: PULSE 120; O2SAT 100
--- NOTE | 2023-04-09 00:15 | WPDPROCEDUR ---
Procedures Intubation Intubation Date: 04/09/23 Intubation Time: 11:25 Sedative: etomidate Mg given: 15 Paralytic: rocuronium Mg given: 6 Laryngoscope: fiber optic video scope Assist device used: fiber optic device ET tube size: 7.5 Tube secured depth (cm): 23 Tube secured location: lips Tube placement confirmation: visualized tube passing through cords, equal breath sounds bilaterally, no breath sounds over epigastrium and confirmation by capnometry Patient tolerated procedure: well and no complications Intubation complications: hypoxia
[2023-04-09 00:16] VITALS: PULSE 133; RESP 20
[2023-04-09] MEDS: MIDAZOLAM 100MG/NS 100ML(*CRX) 100 MG/100 ML BAG IV CONT (00:16)
--- NOTE | 2023-04-09 00:16 | PC.NURSE ---
Kale Davila, updated on intubation for airway protection and pending air transport to [facility] ED. All questions answered.
[2023-04-09 00:18] VITALS: PULSE 122; RESP 20
[2023-04-09] MEDS: FENTANYL 2,500MCG/NS250ML(*CRX 2,500 MCG/250 ML BAG IV CONT (00:18)
[2023-04-09] MEDS: SODIUM CHLORIDE 3% 500 ML 75 ML IV CONT (00:22)
[2023-04-09 00:23] VITALS: PULSE 122; RESP 20
[2023-04-09 00:24] VITALS: PULSE 122; RESP 20
--- NOTE | 2023-04-09 01:14 | PC.NURSE ---
Addendum entered by Leonora Mckenna RN 04/09/23 01:17: 2300. Patient arrived to ICU 3. Dr. Santacruz present to intubate for airway protection. 2330. Patient intubated by Dr. Santacruz for airway protection. 0015. This nurse gave report to [facility] ED charge, Nixon Fuchs. Patient accepted to [facility] by Dr. Reed Benitez. 0045. Patient picked up by flight crew for transfer. Original Note: 2300. Patient arrived to ICU 3. Dr. Santacruz present to intubate for airway protection. 2330. Patient intubated by Dr. Santacruz for airway protection. 0015. This nurse gave report to [facility] ED charge, Nixon Fuchs. Patient accepted to [facility] by Dr. Reed Benitez.
--- NOTE | 2023-04-09 01:34 | PC.NURSE ---
Vital signs at 0025 after air evac hooked her up to their vent. Pulse 142 Respirations 20 CO2 31 Pulse ox 100% last blood pressure 172/138.
--- NOTE | 2023-04-09 01:41 | PC.NURSE ---
Dr. Sheila collins MD with Aniket Fong and Jesus Mclean consulting.
--- NOTE | 2023-04-09 03:51 | PM.TDS ---
Transfer Discharge Sum: Prov Provider Date of admission: 04/06/23 18:04 Primary care physician: Alison Perez MD Admitting clinician: Isiah García MD Consults: 04/06/23 18:19 Consult to Physician Routine Comment: Consulting Provider: Francisco Reyes Reason for consultation: Acute CVA, recurrent seizure Has provider been notified: Yes 04/08/23 Consult to Physician Routine Comment: Consulting Provider: Wilner Hernandez Reason for consultation: mental status change Has provider been notified: Yes Attending physician on discharge: Geeta Santacruz V. Discharging clinician: Geeta Santacruz V. Receiving physician/facility: [facility] DS: Admitting Diagnosis Discharge Date 04/09/23 Admitting Diagnosis Subacute L temporal lobe infarction DS: Discharge Diagnosis Discharge Diagnosis (1) Cerebral herniation: Code(s): G93.5 - Compression of brain Status: Acute Assessment and Plan: Patient airlifted to [facility] (2) Acute cerebrovascular accident (CVA): Code(s): I63.9 - Cerebral infarction, unspecified Status: Acute Assessment and Plan: Worsening (3) Altered mental status: Code(s): R41.82 - Altered mental status, unspecified Status: Acute Assessment and Plan: Worsening (4) Acute respiratory failure: Code(s): J96.00 - Acute respiratory failure, unspecified whether with hypoxia or hypercapnia Status: Acute Assessment and Plan: Placed on ventilator support Secondary to number 1 Transfer Discharge Sum: Med Medications Active and Home Medications: Home Medications amlodipine 10 mg tablet 10 mg PO DAILY 08/29/22 [History Confirmed 04/06/23] brimonidine 0.2 % eye drops 1 drp RIGHT EYE BID 08/29/22 [History Confirmed 04/06/23] latanoprost 0.005 % eye drops 1 drp RIGHT EYE HS 08/29/22 [History Confirmed 04/06/23] levothyroxine 137 mcg tablet 137 mcg PO DAILY 08/29/22 [History Confirmed 04/06/23] besifloxacin 0.6 % eye drops,suspension (Besivance) 1 drp RIGHT EYE TID 04/06/23 [History Confirmed 04/06/23] clobetasol 0.05 % topical ointment 1 applic topical BID 04/06/23 [History Confirmed 04/06/23] famotidine 20 mg tablet 20 mg PO BID 04/06/23 [History Confirmed 04/06/23] fluticasone propionate 50 mcg/actuation nasal spray,suspension 1 spray intranasal DAILY 04/06/23 [History Confirmed 04/06/23] hydrochlorothiazide 12.5 mg tablet 12.5 mg PO DAILY 04/06/23 [History Confirmed 04/06/23] hydroxyzine HCl 10 mg tablet 10 mg PO DAILY PRN Itching 04/06/23 [History Confirmed 04/06/23] levetiracetam 750 mg tablet 750 mg PO BID 04/06/23 [History Confirmed 04/06/23] loratadine 10 mg tablet 10 mg PO BID 04/06/23 [History Confirmed 04/06/23] telmisartan 80 mg tablet 80 mg PO DAILY 04/06/23 [History Confirmed 04/06/23] Transfer Discharge Sum: Hosp Hospital Course Hospital course: Toña Yo is a 67 year old female Time Spent with Patient Time attestation: Total time spent providing and/or coordinating transfer services: DS: Data Data Completed and Pending Labs on day of discharge: Labs from last 24 hours 04/08/23 04/08/23 04/08/23 21:00 20:47 18:09 WBC 8.9 RBC 4.07 L Hgb 11.7 L Hct 35.8 L MCV 88.0 MCH 28.7 MCHC 32.7 RDW 12.5 Plt Count 205 MPV 8.8 Immature Gran % (Auto) 0.1 Neut % (Auto) 73.0 Lymph % (Auto) 16.0 L Alcorn % (Auto) 9.8 H Eos % (Auto) 0.7 Baso % (Auto) 0.4 Lymph # (Auto) 1.43 Alcorn # (Auto) 0.9 H Eos # (Auto) 0.1 Baso # (Auto) 0.0 Abs Immat Gran (auto) 0.01 Absolute Neuts (auto) 6.5 Absolute Nucleated RBC 0.0 Nucleated RBC % 0.0 APTT 38.5 H Puncture Site Left radial ABG pH 7.500 H ABG pCO2 29.0 L ABG pO2 74.2 L ABG PO2/FiO2 Ratio 3.53 ABG HCO3 22.1 ABG O2 Saturation 96.2 ABG O2 Content 17.0 ABG Base Excess -0.1 A-a Gradient 40.8 Oxyhemoglobin 94.9 Total Hemoglobin 12.7 O2 Delivery De
== END 2023-04-09 00:45 | disposition short-term general hospital (02) | DRG 64 ==
LOC: ANHED 18:03 → ANH2MED 19:54 → ANHICU 04-08 23:06
PROVIDERS: Internal Medicine; Admitting Provider Internal Medicine; Emergency Provider Emergency Medicine; PCP Internal Medicine; Visit Provider Internal Medicine
DX: I63.89 Other cerebral infarction (principal); G93.6 Cerebral edema; J96.00 Acute respiratory failure, unspecified whether with hypoxia or hypercapnia; E87.1 Hypo-osmolality and hyponatremia; R41.82 Altered mental status, unspecified; R29.717 NIHSS score 17; E78.5 Hyperlipidemia, unspecified; E87.6 Hypokalemia; I10 Essential (primary) hypertension; E03.9 Hypothyroidism, unspecified; G40.909 Epilepsy, unspecified, not intractable, without status epilepticus; F40.240 Claustrophobia
CPT/HCPCS: 31500; 36415; 36600; 70450; 70496; 70498; 71045; 71046; 72125; 80048; 80053; 80061; 81001; 81003; 82805; 83605; 85025; 85027; 85610; 85730; 87040; 92507; 92523; 92610; 93005; 94002; 96365; 96375; 97162; 99285; A9270; J1100; J1170; J1650; J1953; J2250; J3010; J3360; J7030; J7042; J7131; Q9967

== ENCOUNTER → 2023-07-27 09:56 | Outpatient (CLI) | payer MEDICARE, SELFPAY ==
--- NOTE | ~2023-07-27 | XR_ITS ---
Clinical Indication: Abnormal weight loss PA and lateral views of the chest: Comparison: 04/09/2023 Findings: The lungs are clear, without evidence of focal consolidation or pleural effusion. Cardiome diastinal silhouette is within normal limits. Bones and soft tissues are unremarkable. Impression: Normal chest. Reviewed, dictated and finalized at [facility]. S MARKETING DIRECTOR Impression: Normal chest.
== END ==
PROVIDERS: PCP Internal Medicine; Visit Provider Internal Medicine
DX: R63.4 Abnormal weight loss (principal)
CPT/HCPCS: 71046

== ENCOUNTER 2023-08-02 15:47 | Outpatient (CLI) | payer MEDICARE, SELFPAY ==
--- NOTE | ~2023-08-02 | CT_ITS ---
EXAMINATION: CT brain wo con DATE: 08/02/2023 16:56 INDICATION: Strange behavior. TECHNIQUE: Computed tomography (CT) of the head was performed without intravenous contrast. The mA wa s adjusted according to patient size. Iterative reconstruction technique was employed. The dose-lengt h product was 681.00 mGy-cm. COMPARISON: Head CT 04/08/2023 FINDINGS: There is chronic encephalomalacia in the temporal lobes, left worse than right. There is no intracranial hemorrhage, acute infarction, or abnormal intracranial mass lesion. There is ex vacuo d ilatation of the temporal horns of the lateral ventricles. There is mild mucosal thickening in the et hmoid sinuses. The mastoid air cells are normal. There are likely changes of right ocular lens replac ement surgery. IMPRESSION: 1. Chronic encephalomalacia in the temporal lobes, left worse than right. Reviewed, dictated and finalized at location A. RLY
== END 2023-08-02 15:48 | disposition home or self-care (01) ==
LOC: ANHIMG 15:48
PROVIDERS: PCP Internal Medicine; Visit Provider Internal Medicine
DX: R46.2 Strange and inexplicable behavior (principal); Z86.61 Personal history of infections of the central nervous system
CPT/HCPCS: 70450

== ENCOUNTER 2023-08-28 14:52 | Outpatient (CLI) | payer MEDICARE, SELFPAY ==
--- NOTE | ~2023-08-28 | MM_ITS ---
EXAMINATION: MM screening carmen BI w gautam HISTORY: Screening mammogram TECHNIQUE: Craniocaudal and mediolateral oblique 3-D tomosynthesis images were obtained and synthetic 2-D images were generated. CAD analysis was submitted and interpreted. COMPARISON: 11/01/2022 diagnostic left mammogram and complete left breast ultrasound 02/10/2022 diagnostic left mammogram and limited left breast ultrasound 01/21/2022, 10/27/2020 bilateral screening mammogram examinations BREAST PARENCHYMAL COMPOSITION: The breasts are heterogeneously dense, which may obscure small masses . FINDINGS: There is no evidence of suspicious mass, calcification, or architectural distortion to sugg est malignancy in either breast. There has been no suspicious interval change. IMPRESSION: 1. No mammographic evidence of malignancy. 2. Recommend routine screening mammography in one year. BI-RADS Category 1: Negative Reviewed, dictated and finalized at location A.
== END 2023-08-28 14:53 ==
LOC: MICIMG 14:53
PROVIDERS: PCP Internal Medicine; Visit Provider Internal Medicine
DX: Z12.31 Encounter for screening mammogram for malignant neoplasm of breast (principal)
CPT/HCPCS: 77063; 77067

== ENCOUNTER 2024-07-29 14:02 | Outpatient (CLI) | payer MEDICARE, SELFPAY ==
--- NOTE | ~2024-07-29 | DEXA_ITS ---
Bone Density Report Name: ROCIO LEWIS Age: 69 Sex: Female Ethnicity: Chris Date of : 1955 Indication: osteopenia; height loss; seizure disorder; Referring Provider: NOLBERTO CAVANAUGH Study: Bone densitometry was performed. Exam Date: July 29, 2024 Accession number: [id number] Bone Density: Region BMD T-score Z-score Classification AP Spine(L1-L4) 0.893 -1.4 0.7 Osteopenia Femoral Neck (Left) 0.615 -2.1 -0.3 Osteopenia Total Hip (Left) 0.760 -1.5 0.0 Osteopenia Femoral Neck (Right) 0.656 -1.7 0.1 Osteopenia Total Hip (Right) 0.717 -1.8 -0.3 Osteopenia Total Hip Mean 0.738 -1.7 -0.2 Osteopenia World Health Organization criteria for BMD impression classify patients as: Normal (T-score at or above -1.0), Osteopenia (T-score between -1.0 and -2.5), or Osteoporosis (T-score at or below -2.5). 10-year Fracture Risk(1): Major Osteoporotic Fracture 11% Hip Fracture 2.3% Reported Risk Factors: [place] (), Neck BMD=0.615, BMI=22.9 (1) FRAX(R) Version 3.08. Fracture probability calculated for an untreated patient. Fracture probability may be lower if the patient has received treatment. Previous Exams: Region Exam Age BMD T-score BMD Change BMD Change Date g/cm2 vs Baseline vs Previous AP Spine (L1-L4) 07/29/2024 69 0.893 -1.4 -0.004 (-0.4%) -0.004 (-0.4%) 10/20/2020 65 0.897 -1.4 Total Hip(Left) 07/29/2024 69 0.760 -1.5 -0.087 (-10.2% -0.087 (-10.2% 10/20/2020 65 0.846 -0.8 Total Hip(Right) 07/29/2024 69 0.717 -1.8 -0.088 (-10.9% -0.088 (-10.9% 10/20/2020 65 0.804 -1.1 *Denotes significance at 95% confidence level, LSC for AP Spine = 0.022 g/cm2, LSC for Total Hip = 0.027 g/cm2 # Denotes dissimilar scan types or analysis methods Clinical Information Provided by Patient: Has used the following medications: Vitamin D, Calcium Has the following medical conditions: Any Seizure Disorders Patient maximum height was 70 Menopause Age: 51 No regular weight bearing exercise Drinks caffeinated beverages Onset of menses at age 12 Number of children 2 Impression: The patient has low bone mass, based on the Left Femoral Neck T-score. The patient has an estimated ten-year risk of hip fracture of 2.3% and an estimated ten-year risk of major fracture of 11%, based on the WHO FRAX algorithm. No significant bone loss was observed. Discussion: BONE DENSITY IS LOW AT ONE OR MORE SKELETAL SITES. This patient's lowest T-score is low at one or more skeletal sites. It meets the World Health Organization's (WHO) criteria for ?low bone mass? (T-score between -1.0 and -2.5). The patient's 10-year risk of fracture as calculated by FRAX is less than the threshold where pharmacological therapy is recommended by the National Osteoporosis Foundation (NOF). However, all treatment decisions require clinical judgment and consideration of individual patient factors, including patient preferences, comorbidities, previous drug use, risk factors not captured in the FRAX model (e.g., frailty, falls, vitamin D deficiency, increased bone turnover, interval significant decline in bone density) and possible under or overestimation of fracture risk by FRAX. The patient should follow a healthful lifestyle (good nutrition with adequate calcium and vitamin D, and appropriate weight-bearing exercise). Follow-Up: Consider repeating this study in 2 to 3 years to reassess this patient's status, or sooner if there is some new clinical indication. Reported by: PRAMOD on 07/29/2024 2:43:00 PM. Reviewed, dictated and finalized at location ARachel GREEN
--- OUTSIDE RECORDS SUMMARY | 2024-07-29 16:14 | XMS_ITS | Patient Health Summary ---
Author Organization [facility] Address [address] [place] [address] Care Team Providers Care A/C Tech Name Role Phone A, Unknown Practice Primary Care Provider [phone] Note from [facility],non-owned Affiliates and Associated Physician Practices is amultiple site organization consisting of ambulatory clinics and hospital sitesin [place], [place], [place] and [place]. This disclosure is being madepursuant to the Care Everywhere program and may not contain all information available regarding this patient. Last updated 18.[facility] Allergies * Hydrocortisone(Itching,Rash,Swelling) -Medium Criticality * Sulfamethoxazole-Trimethoprim(Rash) -Medium Criticality * Cephalosporins(Swelling,Other,Rash) -Medium Criticality * Ciprofloxacin(Dizziness) -Low Criticality * Dupilumab(Seizures) -High Criticality * Linalool(Itching,Rash,Urticaria) -Medium Criticality * Moxifloxacin(Rash) -Medium Criticality * Penicillins(Urticaria) -Medium Criticality * Rosuvastatin(Headache) -Low Criticality * Sulfa Drugs(Rash,Swelling) -Medium Criticality * Sulfamethoxazole W-Trimethoprim(Rash) -Medium Criticality * Thimerosal(Itching,Rash) -Medium Criticality Medications * Be aware that medications may not be up to date on this document. Alwaysverify current medications with the patient. * levothyroxine (Synthroid) 112 MCG tablet Take 125 mcg by mouth daily before breakfast * acetaminophen (Tylenol) 325 MG tablet(Started 05/07/2023) Take 2 (two) tablets by mouth every 4 hours as needed Maximum allowable Acetaminophen amount = 4 Grams (4000 mg) / 24 hours. * gabapentin (Neurontin) 300 MG capsule(Started 05/07/2023) Take 1 (one) capsule by mouth 3 times daily * atorvastatin (Lipitor) 80 MG tablet(Started 05/07/2023) Take 1 (one) tablet by mouth at bedtime * melatonin 3 MG tablet(Started 05/07/2023) Take 2 (two) tablets by mouth at bedtime * brimonidine (Alphagan) 0.2 % ophthalmic solution(Started 05/07/2023) Instill 1 (one) drop into both eyes 2 times daily * timolol maleate (Timoptic) 0.5 % ophthalmic solution(Started 05/08/2023) Instill 1 (one) drop into both eyes once daily * telmisartan (Micardis) 80 MG tablet Take 1 (one) tablet by mouth once daily * amLODIPine (Norvasc) 5 MG tablet Take 1 (one) tablet by mouth once daily * loratadine (Claritin) 10 MG tablet Take 1 (one) tablet by mouth 2 times daily * levETIRAcetam (Keppra) 1000 MG tablet(Started 08/17/2023) Take 1 (one) tablet by mouth 2 times daily 4 refills by 08/16/2024 Active Problems Problem Noted Date Diagnosed Date Adverse effect of sulfonamides, subsequent encou nter 08/17/2023 08/17/2023 Allergy to penicillin 08/17/2023 08/17/2023 Graves disease 08/17/2023 08/17/2023 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 08/17/2023 08/17/2023 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 08/17/2023 Essential hypertension 05/08/2023 Unspecified contact dermatitis due to other agen ts 04/23/2023 Acute respiratory failure, u nspecified whether with hypoxia or hypercapnia 04/09/2023 Hyponatremia 04/09/2023 Brain herniation 04/09/2023 Endotracheally intubated 04/09/2023 Midline shift of brain 04/09/2023 Cerebrovascular accident (CVA), unspecified mech anism 04/09/2023 Atopic dermatitis 08/30/2022 08/17/2023 Elevated liver enzymes 08/30/2022 Hypokalemia 08/30/2022 08/17/2023 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 (FLUAD QUADRIVALENT; 65Y+) (AIIV4)(Given 03/15/2022, 03/11/2020) * INFLUENZA VACCINE, HIGH-DOSE, QUADR. (FLUZONE HIGH-DOSE QUADRIVALENT; 65Y+), 0.7 ML (HD-IIV4)(Given 03/23/2021) * Zoster Hzv Vacc Recombinant Inj Im(Given 03/11/2020) Social History Tobacco Use Types Packs/Day Years Used Date Smoking Tobacco: Never Smokeless Tobacco: Never AUDIT-C Answer Date Recorded Q1: How often do you have a drink containing alc ohol? Monthly or less 04/09/2023 Q2: How many drinks containi ng alcohol do you have on a typical day when you are drinking? 1 or 2 04/09/2023 Q3: How often do you have si x or more drinks on one occasion? Never 04/09/2023 Overall Financial Resource Strain (CARDIA) Answe r Date Recorded How hard is it for you to pa y for the very basics like food, housing, medical care, and heating? Not hard at all 04/09/2023 PHQ-2 Answer Date Recorded Patient Health Questionnaire-2 Score 0 05/07/2023 [facility] - Occupational Stress Questionnaire Answer Date Recorded Do you feel stress - tense, restless, nervous, or anxious, or unable to sleep at night because your mind is troubled all the time - these days? Not at all 04/09/2023 Hunger Vital Sign Answer Date Recorded Within the past 12 months, y ou worried that your food would run out before you got the money to buy more. Never true 04/09/20 23 Within the past 12 months, t he food you bought just didn't last and you didn't have money to get more. Never true 04/09/2023 PRAPARE - Transportation Answer Date Re corded In the past 12 months, has l ack of transportation kept you from medical appointments or from getting medications? No 11/2022 In the past 12 months, has l ack of transportation kept you from meetings, work, or from getting things needed for daily living? No 04/09/2023 Housing Stability Vital Sign Answer Farhat e Recorded In the last 12 months, was t here a time when you were not able to pay the mortgage or rent on time? No 04/09/2023 In the last 12 months, how many places have you lived? 1 04/09/2023 In the last 12 months, was t here a time when you did not have a steady place to sleep or slept in a long term (including now)? No 04/09/2023 Sex and Gender Information Value Date Recorded Sex Assigned at Not on file Gender Identity Not on file Sexual Orientation Not on file Last Filed Vital Signs Vital Sign Reading Time Taken Comments Blood Pressure 148/90 08/17/2023 10:53 AM CDT Pulse 66 08/17/2023 10:53 AM CDT Temperature 36.5 C (97.7 F) 05/07/2023 12:09 PM INSTRUCTIONAL DESIGN CONSULTANT Respiratory Rate 16 05/06/2023 4:17 PM INSTRUCTIONAL DESIGN CONSULTANT Oxygen Saturation 99% 08/17/2023 10:53 AM CDT Inhaled Oxygen Concentration 21% 05/06/2023 7 :01 AM INSTRUCTIONAL DESIGN CONSULTANT Weight 76.2 kg (168 lb 1.6 oz) 08/17/2023 10:53 AM CDT Height 177.8 cm (5' 10 ) 04/24/2023 10:52 AM INSTRUCTIONAL DESIGN CONSULTANT Body Mass Index 24.12 04/24/2023 10:52 AM INSTRUCTIONAL DESIGN CONSULTANT Procedures * MRI BRAIN WWO CONTRAST(Performed 07/19/2023) Performed for Encephalitis (HCC) * CREATININE - POCT INTERFACED(Performed 07/19/2023) * BASIC METABOLIC PANEL (CALCIUM TOTAL)(Performed 05/14/2023) * CBC W/O DIFFERENTIAL(Performed 05/14/2023) * BASIC METABOLIC PANEL (CALCIUM TOTAL)(Performed 05/10/2023) * CBC W/O DIFFERENTIAL(Performed 05/10/2023) * CBC W AUTO DIFFERENTIAL(Performed 05/07/2023) * BASIC METABOLIC PANEL (CALCIUM TOTAL)(Performed 05/07/2023) * MAGNESIUM BLOOD(Performed 05/07/2023) * PHOSPHORUS BLOOD(Performed 05/07/2023) * PHOSPHORUS BLOOD(Performed 05/06/2023) * DIFFERENTIAL MANUAL(Performed 05/06/2023) * CBC W AUTO DIFFERENTIAL(Performed 05/06/2023) * BASIC METABOLIC PANEL (CALCIUM TOTAL)(Performed 05/06/2023) * MAGNESIUM BLOOD(Performed 05/06/2023) * PHOSPHORUS BLOOD(Performed 05/06/2023) * DIFFERENTIAL MANUAL(Performed 05/05/2023) * CBC W AUTO DIFFERENTIAL(Performed 05/05/2023) * BASIC METABOLIC PANEL (CALCIUM TOTAL)(Performed 05/05/2023) * MAGNESIUM BLOOD(Performed 05/05/2023) * PHOSPHORUS BLOOD(Performed 05/05/2023) * DIFFERENTIAL MANUAL(Performed 05/04/2023) * CBC W AUTO DIFFERENTIAL(Performed 05/04/2023) * BASIC METABOLIC PANEL (CALCIUM TOTAL)(Performed 05/04/2023) * MAGNESIUM BLOOD(Performed 05/04/2023) * PHOSPHORUS BLOOD(Performed 05/04/2023) * CBC W AUTO DIFFERENTIAL(Performed 05/03/2023) * BASIC METABOLIC PANEL (CALCIUM TOTAL)(Performed 05/03/2023) * MAGNESIUM BLOOD(Performed 05/03/2023) * PHOSPHORUS BLOOD(Performed 05/03/2023) * PHOSPHORUS BLOOD(Performed 05/02/2023) * CBC W AUTO DIFFERENTIAL(Performed 05/02/2023) * BASIC METABOLIC PANEL (CALCIUM TOTAL)(Performed 05/02/2023) * MAGNESIUM BLOOD(Performed 05/02/2023) * PHOSPHORUS BLOOD(Performed 05/02/2023) * PHOSPHORUS BLOOD(Performed 05/01/2023) * GLUCOSE - POINT OF CARE(Performed 05/01/2023) * FL LUMBAR PUNCTURE(Performed 05/01/2023) Performed for Encephalitis (HCC) * DIFFERENTIAL MANUAL FLUID(Performed 05/01/2023) * PARANEOPLASTIC AUTOANTIBODY EVAL CSF(Performed 05/01/2023) * CELL COUNT W DIFFERENTIAL CSF(Performed 05/01/2023) * PROTEIN CSF(Performed 05/01/2023) * GLUCOSE CSF(Performed 05/01/2023) * RECEPTOR ANTIBODY NMDA IGG CSF(Performed 05/01/2023) * CYTOLOGY NON-LINING SEWER PANEL (STL)(Performed 05/01/2023) Performed for Encephalitis (HCC) * CYTOLOGY NON-LINING SEWER PANEL (STL)(Performed 05/01/2023) Performed for Cerebrovascular accident (CVA), unspecified mechanism (HCC) * OLIGOCLONAL BANDS CSF+BLOOD PANEL(Performed 05/01/2023) * CBC W AUTO DIFFERENTIAL(Performed 05/01/2023) * BASIC METABOLIC PANEL (CALCIUM TOTAL)(Performed 05/01/2023) * MAGNESIUM BLOOD(Performed 05/01/2023) * PHOSPHORUS BLOOD(Performed 05/01/2023) * ENCEPHALOPATHY AUTOIMMUNE EVAL BLOOD(Performed 04/30/2023) * PHOSPHORUS BLOOD(Performed 04/30/2023) * GLUCOSE - POINT OF CARE(Performed 04/30/2023) * MRI SPECTROSCOPY(Performed 04/30/2023) Performed for Encephalitis (HCC) * FL SWALLOWING FUNCTION STUDY(Performed 04/30/2023) Performed for Brain herniation (HCC) * CBC W AUTO DIFFERENTIAL(Performed 04/30/2023) * BASIC METABOLIC PANEL (CALCIUM TOTAL)(Performed 04/30/2023) * MAGNESIUM BLOOD(Performed 04/30/2023) * PHOSPHORUS BLOOD(Performed 04/30/2023) * CBC W AUTO DIFFERENTIAL(Performed 04/29/2023) * BASIC METABOLIC PANEL (CALCIUM TOTAL)(Performed 04/29/2023) * MAGNESIUM BLOOD(Performed 04/29/2023) * PHOSPHORUS BLOOD(Performed 04/29/2023) * CBC W AUTO DIFFERENTIAL(Performed 04/28/2023) * BASIC METABOLIC PANEL (CALCIUM TOTAL)(Performed 04/28/2023) * MAGNESIUM BLOOD(Performed 04/28/2023) * PHOSPHORUS BLOOD(Performed 04/28/2023) * MRI BRAIN WWO CONTRAST(Performed 04/27/2023) Performed for Brain herniation (HCC) * MRI SPECTROSCOPY(Performed 04/27/2023) Performed for Encephalitis (HCC) * BASIC METABOLIC PANEL (CALCIUM TOTAL)(Performed 04/27/2023) * MAGNESIUM BLOOD(Performed 04/27/2023) * PHOSPHORUS BLOOD(Performed 04/27/2023) * CBC W AUTO DIFFERENTIAL(Performed 04/27/2023) * LACTIC ACID BLOOD(Performed 04/26/2023) * PYRUVATE BLOOD(Performed 04/26/2023) * CBC W AUTO DIFFERENTIAL(Performed 04/26/2023) * BASIC METABOLIC PANEL (CALCIUM TOTAL)(Performed 04/26/2023) * MAGNESIUM BLOOD(Performed 04/26/2023) * PHOSPHORUS BLOOD(Performed 04/26/2023) * CBC W AUTO DIFFERENTIAL(Performed 04/25/2023) * BASIC METABOLIC PANEL (CALCIUM TOTAL)(Performed 04/25/2023) * MAGNESIUM BLOOD(Performed 04/25/2023) * PHOSPHORUS BLOOD(Performed 04/25/2023) * PHOSPHORUS BLOOD(Performed 04/24/2023) * HEPATIC FUNCTION PANEL(Performed 04/24/2023) * CBC W AUTO DIFFERENTIAL(Performed 04/24/2023) * PHOSPHORUS BLOOD(Performed 04/24/2023) * MAGNESIUM BLOOD(Performed 04/24/2023) * BASIC METABOLIC PANEL (CALCIUM TOTAL)(Performed 04/24/2023) Performed for Cerebrovascular accident (CVA), unspecified mechanism (HCC) * CBC W AUTO DIFFERENTIAL(Performed 04/23/2023) * PHOSPHORUS BLOOD(Performed 04/23/2023) * MAGNESIUM BLOOD(Performed 04/23/2023) * BASIC METABOLIC PANEL (CALCIUM TOTAL)(Performed 04/23/2023) Performed for Cerebrovascular accident (CVA), unspecified mechanism (HCC) * XR ABDOMEN KUB PORTABLE(Performed 04/22/2023) Performed for Brain herniation (HCC) * CULTURE BLOOD(Performed 04/22/2023) * MRSA DNA PCR(Performed 04/22/2023) * CULTURE BLOOD(Performed 04/22/2023) * VARICELLA ZOSTER PCR(Performed 04/22/2023) * HERPES SIMPLEX 1+2 PCR LESION(Performed 04/22/2023) * URINALYSIS REFLEX TO MICROSCOPIC NO CULTURE(Performed 04/22/2023) * XR CHEST 1VW PORTABLE(Performed 04/22/2023) Performed for Acute respiratory failure, unspecified whether with hypoxia or hypercapnia (HCC) * CULTURE SPUTUM+GRAM STAIN(Performed 04/22/2023) * CBC W AUTO DIFFERENTIAL(Performed 04/22/2023) * PHOSPHORUS BLOOD(Performed 04/22/2023) * MAGNESIUM BLOOD(Performed 04/22/2023) * BASIC METABOLIC PANEL (CALCIUM TOTAL)(Performed 04/22/2023) Performed for Cerebrovascular accident (CVA), unspecified mechanism (HCC) * CBC W AUTO DIFFERENTIAL(Performed 04/21/2023) * PHOSPHORUS BLOOD(Performed 04/21/2023) * MAGNESIUM BLOOD(Performed 04/21/2023) * BASIC METABOLIC PANEL (CALCIUM TOTAL)(Performed 04/21/2023) Performed for Cerebrovascular accident (CVA), unspecified mechanism (HCC) * CBC W AUTO DIFFERENTIAL(Performed 04/19/2023) * PHOSPHORUS BLOOD(Performed 04/19/2023) * MAGNESIUM BLOOD(Performed 04/19/2023) * BASIC METABOLIC PANEL (CALCIUM TOTAL)(Performed 04/19/2023) Performed for Cerebrovascular accident (CVA), unspecified mechanism (HCC) * MRI BRAIN WWO CONTRAST(Performed 04/19/2023) Performed for Brain herniation (HCC) * VT TRACHEOSTOMY, PLANNED(Performed 04/19/2023) Performed for Acute respiratory failure, unspecified whether with hypoxia or hypercapnia (HCC) * EKG 12-LEAD(Performed 04/19/2023) Performed for Brain herniation (HCC) * CBC W AUTO DIFFERENTIAL(Performed 04/19/2023) * PHOSPHORUS BLOOD(Performed 04/19/2023) * MAGNESIUM BLOOD(Performed 04/19/2023) * BASIC METABOLIC PANEL (CALCIUM TOTAL)(Performed 04/19/2023) Performed for Cerebrovascular accident (CVA), unspecified mechanism (HCC) * XR CHEST 1VW PORTABLE(Performed 04/18/2023) Performed for Acute respiratory failure, unspecified whether with hypoxia or hypercapnia (HCC), Brain herniation (HCC), Hyponatremia, Midline shift of brain * HEPATITIS C AB SCREEN RFLX NAAT QUANT(Performed 04/18/2023) * HIV-1 HIV-2 ANTIBODY + HIV P24 AG PANEL(Performed 04/18/2023) * CT CHEST ABDOMEN PELVIS W CONT(Performed 04/18/2023) Performed for Brain herniation (HCC) * FL LUMBAR PUNCTURE(Performed 04/18/2023) Performed for Cerebrovascular accident (CVA), unspecified mechanism (HCC) * CYTOLOGY NON-LINING SEWER PANEL (STL)(Performed 04/18/2023) Performed for Cerebrovascular accident (CVA), unspecified mechanism (HCC) * ENCEPHALOPATHY AUTOIMMUNE EVAL CSF(Performed 04/18/2023) * CELL COUNT W DIFFERENTIAL CSF(Performed 04/18/2023) * PROTEIN CSF(Performed 04/18/2023) * GLUCOSE CSF(Performed 04/18/2023) * [place] ANTIBODY IGG/IGM CSF PANEL(Performed 04/18/2023) * VARICELLA ZOSTER ANTIBODY IGM CSF(Performed 04/18/2023) * CRYPTOCOCCUS ANTIGEN CSF(Performed 04/18/2023) * VIRAL CULTURE MISC(Performed 04/18/2023) * ENTEROVIRUS PCR CSF(Performed 04/18/2023) * HERPES SIMPLEX 1+2 PCR CSF(Performed 04/18/2023) * CBC W AUTO DIFFERENTIAL(Performed 04/18/2023) * PHOSPHORUS BLOOD(Performed 04/18/2023) * MAGNESIUM BLOOD(Performed 04/18/2023) * BASIC METABOLIC PANEL (CALCIUM TOTAL)(Performed 04/18/2023) Performed for Cerebrovascular accident (CVA), unspecified mechanism (HCC) * CBC W AUTO DIFFERENTIAL(Performed 04/17/2023) * PHOSPHORUS BLOOD(Performed 04/17/2023) * MAGNESIUM BLOOD(Performed 04/17/2023) * BASIC METABOLIC PANEL (CALCIUM TOTAL)(Performed 04/17/2023) Performed for Cerebrovascular accident (CVA), unspecified mechanism (HCC) * CBC W AUTO DIFFERENTIAL(Performed 04/16/2023) * PHOSPHORUS BLOOD(Performed 04/16/2023) * MAGNESIUM BLOOD(Performed 04/16/2023) * BASIC METABOLIC PANEL (CALCIUM TOTAL)(Performed 04/16/2023) Performed for Cerebrovascular accident (CVA), unspecified mechanism (HCC) * CBC W AUTO DIFFERENTIAL(Performed 04/14/2023) * PHOSPHORUS BLOOD(Performed 04/14/2023) * MAGNESIUM BLOOD(Performed 04/14/2023) * BASIC METABOLIC PANEL (CALCIUM TOTAL)(Performed 04/14/2023) Performed for Cerebrovascular accident (CVA), unspecified mechanism (HCC) * PHOSPHORUS BLOOD(Performed 04/13/2023) * MAGNESIUM BLOOD(Performed 04/13/2023) * CBC W/O DIFFERENTIAL(Performed 04/13/2023) Performed for Cerebrovascular accident (CVA), unspecified mechanism (HCC) * BASIC METABOLIC PANEL (CALCIUM TOTAL)(Performed 04/13/2023) Performed for Cerebrovascular accident (CVA), unspecified mechanism (HCC) * PHOSPHORUS BLOOD(Performed 04/13/2023) * MAGNESIUM BLOOD(Performed 04/13/2023) * CBC W/O DIFFERENTIAL(Performed 04/13/2023) Performed for Cerebrovascular accident (CVA), unspecified mechanism (HCC) * BASIC METABOLIC PANEL (CALCIUM TOTAL)(Performed 04/13/2023) Performed for Cerebrovascular accident (CVA), unspecified mechanism (HCC) * BLOOD GASES ART + COOX PANEL(Performed 04/12/2023) * XR CHEST 1VW PORTABLE(Performed 04/12/2023) Performed for Brain herniation (HCC) * QUANTIFERON-TB GOLD PLUS 4-TUBE(Performed 04/12/2023) * BLOOD GASES ART + COOX PANEL(Performed 04/12/2023) * PHOSPHORUS BLOOD(Performed 04/11/2023) * MAGNESIUM BLOOD(Performed 04/11/2023) * CBC W/O DIFFERENTIAL(Performed 04/11/2023) Performed for Cerebrovascular accident (CVA), unspecified mechanism (HCC) * BASIC METABOLIC PANEL (CALCIUM TOTAL)(Performed 04/11/2023) Performed for Cerebrovascular accident (CVA), unspecified mechanism (HCC) * FL LUMBAR PUNCTURE(Performed 04/11/2023) Performed for Brain herniation (HCC) * DIFFERENTIAL MANUAL FLUID(Performed 04/11/2023) * ENCEPHALOPATHY AUTOIMMUNE EVAL CSF(Performed 04/11/2023) * CYTOMEGALOVIRUS QUAL PCR(Performed 04/11/2023) * VARICELLA ZOSTER ANTIBODY IGM CSF(Performed 04/11/2023) * CELL COUNT W DIFFERENTIAL CSF(Performed 04/11/2023) * PROTEIN CSF(Performed 04/11/2023) * GLUCOSE CSF(Performed 04/11/2023) * ENTEROVIRUS PCR CSF(Performed 04/11/2023) * HERPES SIMPLEX 1+2 PCR CSF(Performed 04/11/2023) * EKG 12-LEAD(Performed 04/11/2023) Performed for Brain herniation (HCC) * TRIGLYCERIDES BLOOD(Performed 04/11/2023) * CBC W/O DIFFERENTIAL(Performed 04/11/2023) Performed for Cerebrovascular accident (CVA), unspecified mechanism (HCC) * BASIC METABOLIC PANEL (CALCIUM TOTAL)(Performed 04/11/2023) Performed for Cerebrovascular accident (CVA), unspecified mechanism (HCC) * XR ABDOMEN KUB PORTABLE(Performed 04/10/2023) Performed for Endotracheally intubated * ECHO COMPLETE W CONTRAST W BUBBLE STUDY(Performed 04/10/2023) Performed for Cerebrovascular accident (CVA), unspecified mechanism (HCC) * XR ABDOMEN KUB PORTABLE(Performed 04/10/2023) Performed for Brain herniation (HCC) * BASIC METABOLIC PANEL (CALCIUM TOTAL)(Performed 04/10/2023) * OSMOLALITY BLOOD(Performed 04/10/2023) * GLUCOSE - POINT OF CARE(Performed 04/10/2023) * BASIC METABOLIC PANEL (CALCIUM TOTAL)(Performed 04/10/2023) * OSMOLALITY BLOOD(Performed 04/10/2023) * MRI BRAIN WWO CONTRAST(Performed 04/10/2023) Performed for Cerebrovascular accident (CVA), unspecified mechanism (HCC) * BASIC METABOLIC PANEL (CALCIUM TOTAL)(Performed 04/10/2023) * OSMOLALITY BLOOD(Performed 04/10/2023) * CBC W/O DIFFERENTIAL(Performed 04/09/2023) Performed for Cerebrovascular accident (CVA), unspecified mechanism (HCC) * BASIC METABOLIC PANEL (CALCIUM TOTAL)(Performed 04/09/2023) * OSMOLALITY BLOOD(Performed 04/09/2023) * HEMOGLOBIN A1C(Performed 04/09/2023) Performed for Cerebrovascular accident (CVA), unspecified mechanism (HCC) * BASIC METABOLIC PANEL (CALCIUM TOTAL)(Performed 04/09/2023) * OSMOLALITY BLOOD(Performed 04/09/2023) * BASIC METABOLIC PANEL (CALCIUM TOTAL)(Performed 04/09/2023) * OSMOLALITY BLOOD(Performed 04/09/2023) * EEG VIDEO MONITORING(Performed 04/09/2023) * XR ABDOMEN KUB PORTABLE(Performed 04/09/2023) Performed for Brain herniation (HCC) * BLOOD GASES ART + COOX PANEL(Performed 04/09/2023) * BASIC METABOLIC PANEL (CALCIUM TOTAL)(Performed 04/09/2023) * OSMOLALITY BLOOD(Performed 04/09/2023) * CT HEAD WO CONTRAST(Performed 04/09/2023) Performed for Brain herniation (HCC) * GLUCOSE - POINT OF CARE(Performed 04/09/2023) * TROPONIN-I HIGH SENSITIVE REFLEX 1HOUR(Performed 04/09/2023) Performed for Cerebrovascular accident (CVA), unspecified mechanism (HCC) * GLUCOSE - POINT OF CARE(Performed 04/09/2023) * LIPID PROFILE(Performed 04/09/2023) Performed for Cerebrovascular accident (CVA), unspecified mechanism (HCC) * TROPONIN-I HIGH SENSITIVE BASELINE + 1HR(Performed 04/09/2023) Performed for Cerebrovascular accident (CVA), unspecified mechanism (HCC) * SODIUM BLOOD(Performed 04/09/2023) * HEMOGLOBIN A1C(Performed 04/09/2023) * BASIC METABOLIC PANEL (CALCIUM TOTAL)(Performed 04/09/2023) * PT EVAL AND TREAT(Performed 04/09/2023) Performed for Cerebrovascular accident (CVA), unspecified mechanism (HCC) * OT EVAL AND TREAT(Performed 04/09/2023) Performed for Cerebrovascular accident (CVA), unspecified mechanism (HCC) * PTT [facility](Performed 04/09/2023) * PT-INR [facility](Performed 04/09/2023) * SODIUM URINE RANDOM(Performed 04/09/2023) * OSMOLALITY URINE(Performed 04/09/2023) * CT ANGIO BRAIN AND NECK(Performed 04/09/2023) Performed for Cerebrovascular accident (CVA), unspecified mechanism (HCC) * CT HEAD WO CONTRAST(Performed 04/09/2023) Performed for Endotracheally intubated, Cerebrovascular accident (CVA), unspecified mechanism (HCC) * BASIC METABOLIC PANEL (CALCIUM TOTAL)(Performed 04/09/2023) * CBC W AUTO DIFFERENTIAL(Performed 04/09/2023) * PHOSPHORUS BLOOD(Performed 04/09/2023) * MAGNESIUM BLOOD(Performed 04/09/2023) * OSMOLALITY BLOOD(Performed 04/09/2023) * BLOOD GASES ART + COOX PANEL(Performed 04/09/2023) * XR CHEST 1VW PORTABLE(Performed 04/09/2023) Performed for Endotracheally intubated * VT TRACHEOSTOMY, PLANNED Performed for Acute respiratory failure, unspecified whether with hypoxia or hypercapnia (HCC) Results * MRI BRAIN WWO CONTRAST (07/19/2023 4:03 PM INSTRUCTIONAL DESIGN CONSULTANT) Only the most recent of4 resultswithin the time period is included. Anatomical Region Laterality Modality Head Magnetic Resonan ce 07/20/2023 8:49 AM INSTRUCTIONAL DESIGN CONSULTANT Impressions 07/23/2023 4:09 PM INSTRUCTIONAL DESIGN CONSULTANT IMPRESSION: 1.Significant interval decrease in geographic edema of the left temporal lobe and insula with resolution of [id number] midline shift. 2.There is progressive encephalomalacia/gliosis of the left greater than right temporal lobes with superimposed susceptibility artifact compatible with hemosiderin deposition. There are persistent foci of abnormal enhancement in the posterior left temporal lobe, significantly decreased compared to prior examination. 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 Attention at follow-up is recommended. > Dictated by César Segura DO (resident) Astrid Padilla MD have personally reviewed and interpreted this examination/study. > Interpreting Provider: Astrid Joaquin MD on 07/23/2023 4:09 PM Narrative 07/23/2023 4:09 PM INSTRUCTIONAL DESIGN CONSULTANT PROCEDURE: MRI BRAIN WWO CONTRAST DATE/TIME OF EXAM: 07/19/2023 4:04 PM CLINICAL INFORMATION: None relevant/not provided if blank. Indication: G04.90: Encephalitis TECHNIQUE: MRI of the brain was performed prior to and following the uneventful administration of 7 mL GADAVIST contrast according to a tumor protocol. COMPARISON: MRI brain dated 04/27/2023. FINDINGS: Geographic heterogeneously hyperintense FLAIR signal of the left anterolateral temporal lobe and insula with areas of encephalomalacia/gliosis most prominent along the anterior aspect of the temporal lobe, significantly decreased from prior examination. Susceptibility artifact follows the FLAIR signal abnormality compatible with hemosiderin deposition. Near complete interval resolution of abnormal parenchymal enhancement. Very small areas of focal enhancement are noted in the posterior left temporal lobe, for reference (series 10, image 83). Area of high signal on DWI correlates with high signal on ADC compatible with T2 shine through (series 2, image 13 and 39). No evidence of abnormal diffusion restriction within the left temporal lobe. Areas of intrinsic T1 hyperintensity are noted in the cortex of the anterolateral temporal lobe which may represent calcification. Minimal FLAIR hyperintensity is noted in the medial aspect of the right temporal lobe surrounding the temporal horn of the right lateral ventricle, for reference (series 4, image 9-11). Punctate focus of susceptibility artifact is noted in the left caudate head, likely representing chronic microhemorrhage. No evidence of acute hemorrhage. No evidence of acute cerebral infarction is seen. There is mild cerebral volume loss with associated ex vacuo ventricular dilatation. No mass effect or midline shift is seen. Scattered cerebral hemispheric white matter FLAIR hyperintensities are a nonspecific finding. The corpus callosum and sella appear normal. The posterior fossa, brainstem, and craniocervical junction appear normal. Other than scattered opacification of some right mastoid air cells, the visualized portions of the orbits, paranasal sinuses, and mastoids appear normal. Normal flow voids are demonstrated in the carotid arteries and basilar artery. The calvarium appears normal. Mild degenerative changes of the visualized upper cervical spine. Procedure Note Astrid Joaquin MD - 07/23/2023 PROCEDURE: MRI BRAIN WWO CONTRAST DATE/TIME OF EXAM: 07/19/2023 4:04 PM CLINICAL INFORMATION: None relevant/not provided if blank. Indication: G04.90: Encephalitis TECHNIQUE: MRI of the brain was performed prior to and following the uneventful administration of 7 mL GADAVIST contrast according to a tumor protocol. COMPARISON: MRI brain dated 04/27/2023. FINDINGS: Geographic heterogeneously hyperintense FLAIR signal of the left anterolateral temporal lobe and insula with areas of encephalomalacia/gliosis most prominent along the anterior aspect of the temporal lobe, significantly decreased from prior examination. Susceptibility artifact follows the FLAIR signal abnormality compatible with hemosiderin deposition. Near complete interval resolution ofabnormal parenchymal enhancement. Very small areas of focal enhancement are notedin the posterior left temporal lobe, for reference (series 10, image 83).Area of high signal on DWI correlates with high signal on ADC compatible withT2 shine through (series 2, image 13 and 39). No evidence of abnormal diffusion restriction within the left temporal lobe. Areas of intrinsicT1 hyperintensity are noted in the cortex of the anterolateral temporallobe which may represent calcification. Minimal FLAIR hyperintensity is noted in the medial aspect of the right temporal lobe surrounding the temporal horn of the right lateralventricle, for reference (series 4, image 9-11). Punctate focus of susceptibility artifact is noted in the left caudate head, likely representing chronic microhemorrhage. No evidence of acute hemorrhage. No evidence of acute cerebral infarction is seen. There ismild cerebral volume loss with associated ex vacuo ventricular dilatation. No mass effect or midline shift is seen. Scattered cerebral hemisphericwhite matter FLAIR hyperintensities are a nonspecific finding. The corpus callosum and sella appear normal. The posterior fossa, brainstem, and craniocervical junction appear normal. Other than scattered opacification of some right mastoid air cells, the visualized portions of the orbits, paranasal sinuses, and mastoidsappear normal. Normal flow voids are demonstrated in the carotid arteries and basilar artery. The calvarium appears normal. Mild degenerative changesof the visualized upper cervical spine. IMPRESSION: 1.Significant interval decrease in geographic edema of the left temporal lobe and insula with resolution of yswj-bc-pgrhj midline shift. 2.There is progressive encephalomalacia/gliosis of the left greater than right temporal lobes with superimposed susceptibility artifactcompatible with hemosiderin deposition. There are persistent foci of abnormal enhancement in the posterior left temporal lobe, significantly decreased compared to prior examination. 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 Attention at follow-up is recommended. > Dictated by César Segura DO (resident) I, Astrid Joaquin MD have personally reviewed and interpretedthis examination/study. > Interpreting Provider: Astrid Joaquin MD on 07/23/2023 4:09 PM Margot Chamorro MD MR ORDERABLES * (ABNORMAL) CREATININE - POCT INTERFACED (07/19/2023 3:26 PM INSTRUCTIONAL DESIGN CONSULTANT) [facility] Signature Creatinine POCT 0.75 0.30 - 1.30 mg/dL 07/23/2023 6:51 AM INSTRUCTIONAL DESIGN CONSULTANT [facility] eGFR 86(L) >90 mL/min/1.7 3 m2 07/23/2023 6:51 AM INSTRUCTIONAL DESIGN CONSULTANT [facility] Blood BLOOD SPECIMEN / Unknown 07/19/2023 3:26 PM INSTRUCTIONAL DESIGN CONSULTANT 07/23/2023 6:51 AM INSTRUCTIONAL DESIGN CONSULTANT Margot Chamorro MD LAB - POINT OF CARE ORDERABLES [address] [address], [facility] [phone] * (ABNORMAL) CBC W/O DIFFERENTIAL (05/14/2023 5:56 AM INSTRUCTIONAL DESIGN CONSULTANT) Only the most recent of7 resultswithin the time period is included. [facility] WBC 5.6 4.4 - 10.7 x10E9/L 05/14/2023 7:59 AM [facility] RBC 3.51(L) 3.80 - 5.20 x10E12/L 05/14/2023 7:59 AM [facility] Hemoglobin 10.1(L) 12.0 - 15.6 gm/dL 05/14/2023 7:59 AM [facility] Hematocrit 32.6(L) 35.9 - 45.5 % 05/14/2023 7:59 AM [facility] MCV 92.9 80.7 - 98.3 fl 05/14/2023 7:59 AM [facility] MCH 28.8 26.7 - 34.0 pg 05/14/2023 7:59 AM [facility] MCHC 31.0 30.8 - 35.9 gm/dL 05/14/2023 7:59 AM [facility] Platelet Count 337 153 - 416 x10E9/L 05/14/2023 7:59 AM [facility] RDW-CV 14.1 12.1 - 14.9 % 05/14/2023 7:59 AM [facility] MPV 9.5 9.4 - 12.9 fl 05/14/2023 7:59 AM [facility] Blood BLOOD SPECIMEN / Unknown Venipuncture / Unknown 05/14/2023 5:56 AM INSTRUCTIONAL DESIGN CONSULTANT 05/14/2023 7:31 AM INSTRUCTIONAL DESIGN CONSULTANT John Anna MD LAB - HEMATOLOGY OR DERABLES Performing Organization Address City/State/[facility] Co de Phone Number [facility] [address] [place], [place] [id number] * BASIC METABOLIC PANEL (CALCIUM TOTAL) (05/14/2023 5:56 AM INSTRUCTIONAL DESIGN CONSULTANT) Only the most recent of38 resultswithin the time period is included. [facility] Glucose 79 70 - 105 mg/dL 05/14/2023 8:21 AM [facility] Sodium 137 136 - 145 mmol/L 05/14/2023 8:21 AM [facility] Potassium 3.7 3.5 - 5.1 mmol/L 05/14/2023 8:21 AM [facility] Chloride 104 98 - 107 mmol/L 05/14/2023 8:21 AM [facility] CO2 25 22 - 29 mmol/L 05/14/2023 8:21 AM [facility] Calcium 9.5 8.4 - 10.4 mg/dL 05/14/2023 8:21 AM [facility] Anion Gap 8 6 - 16 mmol/L 05/14/2023 8:21 AM [facility] BUN 7 7 - 26 mg/dL 05/14/2023 8:21 AM [facility] Creatinine 0.73 0.57 - 1.11 mg/dL 05/14/2023 8:21 AM [facility] eGFR by CKD-EPI 90 >=90 mL/min/1.7 3 m2 05/14/2023 8:21 AM [facility] Blood BLOOD SPECIMEN / Unknown Venipuncture / Unknown 05/14/2023 5:56 AM INSTRUCTIONAL DESIGN CONSULTANT 05/14/2023 7:31 AM [facility] John Anna MD LAB - CHEMISTRY ORD ERABLES [facility] [address] [place], [place] [id number] * (ABNORMAL) CBC W AUTO DIFFERENTIAL (05/07/2023 2:10 AM [facility]) Only the most recent of24 resultswithin the time period is included. WBC 5.7 3.5 - 10.5 10 3/uL 05/07/2023 2:54 AM [facility] RBC 3.38(L) 3.80 - 5.20 10 6/uL 05/07/2023 2:54 AM [facility] Hemoglobin 9.6(L) 12.0 - 15.6 g/dL 05/07/2023 2:54 AM [facility] Hematocrit 30.1(L) 35.0 - 45.0 % 05/07/2023 2:54 AM [facility] MCV 89.1 80.7 - 98.3 fL 05/07/2023 2:54 AM [facility] MCH 28.4 26.7 - 34.0 pg 05/07/2023 2:54 AM [facility] MCHC 31.9 30.8 - 35.9 g/dL 05/07/2023 2:54 AM [facility] RDW-SD 43.1 36.0 - 50.0 fL 05/07/2023 2:54 AM [facility] RDW-CV 13.3 11.2 - 14.8 % 05/07/2023 2:54 AM [facility] Platelet Count 418(H) 150 - 400 10 3/uL 05/07/2023 2:54 AM [facility] MPV 9.5 9.4 - 12.9 fL 05/07/2023 2:54 AM [facility] nRBC Absolute 0.00 0 10 3/uL 05/07/2023 2:54 AM [facility] nRBC Auto 0.0 0 /100 WBC 05/07/2023 2:54 AM [facility] Neutrophils % 37.8 35.0 - 70.0 % 05/07/2023 2:54 AM [facility] Lymphocytes % 40.2 20.0 - 43.0 % 05/07/2023 2:54 AM [facility] Monocytes % 13.9(H) 5.0 - 13.0 % 05/07/2023 2:54 AM [facility] Eosinophils % 6.3(H) 0.0 - 6.0 % 05/07/2023 2:54 AM [facility] Basophil % 0.9 0.0 - 2.0 % 05/07/2023 2:54 AM [facility] Neutrophils Absolute 2.15 1.60 - 7.00 10 3/uL 05/07/2023 2:54 AM [facility] Lymphocyte Absolute 2.29 1.10 - 3.90 10 3/uL 05/07/2023 2:54 AM [facility] Monocytes Absolute 0.79 0.26 - 1.07 10 3/uL 05/07/2023 2:54 AM [facility] Eosinophils Absolute 0.36 0.00 - 0.47 10 3/uL 05/07/2023 2:54 AM [facility] Basophils Absolute 0.05 0.00 - 0.08 10 3/uL 05/07/2023 2:54 AM INSTRUCTIONAL DESIGN CONSULTANT [facility] Immature Granulocytes % 0.9 0.0 - 1.0 % 05/07/2023 2:54 AM INSTRUCTIONAL DESIGN CONSULTANT [facility] Immature Granulocytes Absolute 0.05 05/07/2023 2:54 AM INSTRUCTIONAL DESIGN CONSULTANT [facility] Blood BLOOD SPECIMEN / Unknown Lab Venipuncture / Unknown 05/07/2023 2:10 AM INSTRUCTIONAL DESIGN CONSULTANT 05/07/2023 2:47 AM INSTRUCTIONAL DESIGN CONSULTANT Margot Chamorro MD LAB - HEMATOLOGY ORD ERABLES Performing Organization Address City/[facility]/ZIP Co de Phone Number [facility] [address] [place] [address], [facility] [phone] * (ABNORMAL) PHOSPHORUS BLOOD (05/07/2023 2:10 AM INSTRUCTIONAL DESIGN CONSULTANT) Only the most recent of32 resultswithin the time period is included. Phosphorus 2.7(L) 2.9 - 5.1 mg/dL 05/07/2023 3:20 AM INSTRUCTIONAL DESIGN CONSULTANT [facility] Blood BLOOD SPECIMEN / Unknown Lab Venipuncture / Unknown 05/07/2023 2:10 AM INSTRUCTIONAL DESIGN CONSULTANT 05/07/2023 2:47 AM INSTRUCTIONAL DESIGN CONSULTANT Margot Chamorro MD LAB - CHEMISTRY ORDGino BARROS Performing Organization Address [facility]/ZIP Co de Phone Number [facility] [address] [place] [address], [place] [phone] * MAGNESIUM BLOOD (05/07/2023 2:10 AM INSTRUCTIONAL DESIGN CONSULTANT) Only the most recent of27 resultswithin the time period is included. Magnesium 1.8 1.6 - 2.6 mg/dL 05/07/2023 3:20 AM INSTRUCTIONAL DESIGN CONSULTANT [facility] Blood BLOOD SPECIMEN / Unknown Lab Venipuncture / Unknown 05/07/2023 2:10 AM INSTRUCTIONAL DESIGN CONSULTANT 05/07/2023 2:47 AM INSTRUCTIONAL DESIGN CONSULTANT Margot Chamorro MD LAB - CHEMISTRY ESTEPHANIE BARROS [facility] [address] [place] [address], [facility] [phone] * (ABNORMAL) DIFFERENTIAL MANUAL (05/06/2023 2:15 AM INSTRUCTIONAL DESIGN CONSULTANT) Only the most recent of3 resultswithin the time period is included. WBC (corrected for NRBC) 4.7 10 3/uL 05/06/2023 7:24 AM [facility] Total Cell Count 100 05/06/2023 7:24 AM [facility] Neutrophils Absolute Manual 1.93 1.60 - 7.00 10 3/uL 05/06/2023 7:24 AM [facility] Comment:(BANDS+SEGS) x WBC = NEUT # (ANC) Lymphocyte Absolute Manual 1.27 1.10 - 3.90 10 3/uL 05/06/2023 7:24 AM [facility] Monocytes Absolute Manual 0.85 0.26 - 1.07 10 3/uL 05/06/2023 7:24 AM [facility] Eosinophils Absolute Manual 0.42 0.00 - 0.47 10 3/uL 05/06/2023 7:24 AM [facility] Basophil Absolute Manual 0.09(H) 0.00 - 0.08 10 3/uL 05/06/2023 7:24 AM [facility] Band % Manual 1 0 - 10 % 05/06/2023 7:24 AM [facility] Neutrophil % Manual 40 35 - 70 % 05/06/2023 7:24 AM [facility] Lymphocyte % Manual 27 20 - 43 % 05/06/2023 7:24 AM [facility] Monocytes % Manual 18(H) 5 - 13 % 05/06/2023 7:24 AM [facility] Eosinophils % Manual 9(H) 0 - 6 % 05/06/2023 7:24 AM [facility] Basophils % Manual 2 0 - 2 % 05/06/2023 7:24 AM [facility] Atypical Lymphocyte % Manual 1(H) 0 % 05/06/2023 7:24 AM [facility] Myelocytes % Manual 2(H) 0 % 05/06/2023 7:24 AM [facility] Platelet Estimate Adequate Adequate 05/06/2023 7:24 AM [facility] Ovalocytes 1+(A) None 05/06/2023 7:24 AM [facility] Wasco Cells 1+(A) None 05/06/2023 7:24 AM [facility] Smudge Cells Few(A) None 05/06/2023 7:24 AM [facility] Blood BLOOD SPECIMEN / Unknown Lab Venipuncture / Unknown 05/06/2023 2:15 AM INSTRUCTIONAL DESIGN CONSULTANT 05/06/2023 4:50 AM INSTRUCTIONAL DESIGN CONSULTANT Margot Chamorro MD LAB - HEMATOLOGY ORD ERABLES [address] [address], [facility] [phone] * GLUCOSE - POINT OF CARE (05/01/2023 8:44 PM INSTRUCTIONAL DESIGN CONSULTANT) Only the most recent of5 resultswithin the time period is included. Glucose WB/POC 94 70 - 115 mg/dL 05/09/2023 11:43 AM [facility] Specimen Type Cap Fingerstick 2022 11:43 AM [facility] Blood BLOOD SPECIMEN / Unknown 05/01/2023 8:44 PM INSTRUCTIONAL DESIGN CONSULTANT 05/09/2023 11:43 AM INSTRUCTIONAL DESIGN CONSULTANT Ozzie Avila MD LAB - POINT OF CARE ORDERABLES Performing Organization Address City/[facility]/ZIP Co de Phone Number [address] [address], [place] [phone] * FL LUMBAR PUNCTURE (05/01/2023 10:15 AM INSTRUCTIONAL DESIGN CONSULTANT) Only the most recent of3 resultswithin the time period is included. Anatomical Region Laterality Modality Spine Radiographic Yamilex ging 05/01/2023 10:4 0 AM INSTRUCTIONAL DESIGN CONSULTANT Impressions 05/01/2023 10:50 AM INSTRUCTIONAL DESIGN CONSULTANT IMPRESSION: 1. Successful lumbar puncture under fluoroscopic guidance at L2-3. The report is dictated by Laureano Ibarra MD (university president) Veronique Padilla MD have personally reviewed and interpreted this examination/study. > Interpreting Provider: Veronique Ambrosio MD on 05/01/2023 10:50 AM Narrative 05/01/2023 10:50 AM INSTRUCTIONAL DESIGN CONSULTANT PROCEDURE: FL LUMBAR PUNCTURE, DATE/TIME OF EXAM: 05/01/2023 10:29 AM, LOCATION [facility] INDICATION: G04.90: Encephalitis ADDITIONAL CLINICAL INFORMATION: Ordering Provider Reason For Exam: seizures, encephalitis Technologist Note: Additional: EXAMINATION: Diagnostic lumbar puncture (LP) under fluoroscopic guidance TECHNIQUE: The risks and benefits of the lumbar puncture including, but not limited to, infection, bleeding, seizure, epidural hematoma, post spinal headache, cerebrospinal fluid (CSF) leak requiring blood patch procedure, nausea, vomiting, irritation or damage to nerves causing pain or permanent injury were discussed with the patient's spouse. After alternatives were discussed and the opportunity to ask questions was provided, the patient's spouse acknowledged understanding, gave verbal consent over the phone with a witness present, and wished to proceed. Attending physician: Dr. Veronique Ambrosio was present for the greenberg portions of this procedure. The L2-3 level was localized with fluoroscopy. The skin overlying this level was then sterilely prepped, draped, and infiltrated with 1% lidocaine for local anesthesia. Under intermittent fluoroscopic guidance, a 20 gauge 3.5 inch spinal needle was inserted into the thecal sac at this level. Clear CSF was identified. A total of 14 ml of CSF was removed and placed into 4 specimen tubes. The patient tolerated the procedure well. The patient was then transferred back to the inpatient unit for further care and at least 2 areas of strict bed rest. OPENING PRESSURE: Not performed. FLUOROSCOPY TIME: 21.3 seconds Procedure Note Veronique Ambrosio MD - 05/01/2023 PROCEDURE: FL LUMBAR PUNCTURE, DATE/TIME OF EXAM: 05/01/2023 10:29 AM, LOCATION [facility] INDICATION: G04.90: Encephalitis ADDITIONAL CLINICAL INFORMATION: Ordering Provider Reason For Exam: seizures, encephalitis Technologist Note: Additional: EXAMINATION: Diagnostic lumbar puncture (LP) under fluoroscopic guidance TECHNIQUE: The risks and benefits of the lumbar puncture including, but not limited to, infection, bleeding, seizure, epidural hematoma, post spinal headache, cerebrospinal fluid (CSF) leak requiring blood patch procedure, nausea, vomiting, irritation or damage to nerves causing painor permanent injury were discussed with the patient's spouse. After alternatives were discussed and the opportunity to ask questions was provided, the patient's spouse acknowledged understanding, gave verbal consent over the phone with a witness present, and wished to proceed. Attending physician: Dr. Veronique Ambrosio was present for the keyportions of this procedure. The L2-3 level was localized with fluoroscopy. The skin overlying this level was then sterilely prepped, draped, and infiltrated with 1%lidocaine for local anesthesia. Under intermittent fluoroscopic guidance, a 20gauge 3.5 inch spinal needle was inserted into the thecal sac at this level. Clear CSF was identified. A total of 14 ml of CSF was removed and placed into 4 specimen tubes. The patient tolerated the procedure well. The patient was then transferred back to the inpatient unit for further care and at least 2 areas of strict bed rest. OPENING PRESSURE: Not performed. FLUOROSCOPY TIME: 21.3 seconds IMPRESSION: 1. Successful lumbar puncture under fluoroscopic guidance at L2-3. The report is dictated by Laureano Ibarra MD (university president) I, Veronique Ambrosio MD have personally reviewed and interpreted this examination/study. > Interpreting Provider: Veronique Ambrosio MD on 05/01/2023 10:50 AM Bennie Franklin MD FLUOROSCOPY ORDERABL ES * PARANEOPLASTIC AUTOANTIBODY EVAL CSF (05/01/2023 9:34 AM INSTRUCTIONAL DESIGN CONSULTANT) See Scanned Document 05/18/2023 2:28 PM INSTRUCTIONAL DESIGN CONSULTANT [facility] NON INTERF Cerebral spinal fluid CEREBROSPINAL FLUID SPECIMEN / Unknown Collection / Unknown 05/01/2023 9:34 AM INSTRUCTIONAL DESIGN CONSULTANT 05/01/2023 10:43 AM INSTRUCTIONAL DESIGN CONSULTANT Bennie Franklin MD LAB - BODY FLUID ORD ERABLES [facility] NON INTERF [address] [place] [address], [facility] [phone] * DIFFERENTIAL MANUAL FLUID (05/01/2023 9:34 AM INSTRUCTIONAL DESIGN CONSULTANT) Only the most recent of2 resultswithin the time period is included. Lymphocytes % Fluid 87 % 05/01/2023 11:46 AM INSTRUCTIONAL DESIGN CONSULTANT [facility] Monocytes % Fluid 4 % 05/01/2023 11:46 AM INSTRUCTIONAL DESIGN CONSULTANT [facility] Macrophages % Fluid 9 % 05/01/2023 11:46 AM [facility] Cerebral spinal fluid CEREBROSPINAL FLUID SPECIMEN / Unknown Collection / Unknown 05/01/2023 9:34 AM INSTRUCTIONAL DESIGN CONSULTANT 05/01/2023 10:41 AM INSTRUCTIONAL DESIGN CONSULTANT Narrative [facility] - 05/01/2023 11:46 AM INSTRUCTIONAL DESIGN CONSULTANT Total of 23 cells counted. Report's in %. Bennie Franklin MD LAB - BODY FLUID ORD ERABLES [facility] [address] [place] [phone], [facility] [phone] * RECEPTOR ANTIBODY NMDA IGG CSF (05/01/2023 9:34 AM INSTRUCTIONAL DESIGN CONSULTANT) Z-lzbstq-E-Aspartat e Receptor Antibody CSF < 1:1 <1:1 05/03/2023 6:45 PM INSTRUCTIONAL DESIGN CONSULTANT [facility] ([facility]) Comment: Antibodies to NMDA were not detected, no additional testing to follow. INTERPRETIVE INFORMATION: NMDA Receptor Ab IgG CBA-IFA, CSF NMDA receptor antibody is found in a subset of patients with autoimmune limbic encephalitis and may occur with or without associated tumor. Decreasing antibody levels may be associated with therapeutic response. In addition, positive results have been reported in patients with non-autoimmune phenotypes. A negative test result does not rule out a diagnosis of autoimmune limbic encephalitis. Results should be interpreted in correlation with the patient's clinical history and other laboratory findings. This indirect fluorescent antibody assay utilizes full-length GluN1 transfected cell lines for the detection and semiquantification of NMDA receptor IgG antibody. This test was developed and its performance characteristics determined by [employer]. It has not been cleared or approved by the [place] Food and Drug Administration. This test was performed in a CLIA certified laboratory and is intended for clinical purposes. Performed By: [facility] [address] [place] [id number] [employer] Condition[employer] Operator: Shawn Gilmore MD, PhD CLIA Number: [id number] Cerebral spinal fluid CEREBROSPINAL FLUID SPECIMEN / Unknown Collection / Unknown 05/01/2023 9:34 AM INSTRUCTIONAL DESIGN CONSULTANT 05/01/2023 10:42 AM INSTRUCTIONAL DESIGN CONSULTANT Bennie Franklin MD LAB - BODY FLUID ORD ERABLES Performing Organization Address City/[facility]/ZIP Co de Phone Number [facility]) [address] [place] [phone] [place] [address] * (ABNORMAL) CELL COUNT W DIFFERENTIAL CSF (05/01/2023 9:34 AM INSTRUCTIONAL DESIGN CONSULTANT) Only the most recent of3 resultswithin the time period is included. Color Fluid Colorless Colorless, Straw 05/01/2023 11:22 AM [facility] Clarity Fluid Clear Clear 05/01/2023 11:22 AM [facility] Volume Fluid 2.3 mL 05/01/2023 11:22 AM [facility] WBC Calculation Fluid 6(H) 0 - 5 x10e6/L 05/01/2023 11:22 AM [facility] RBC Calculation 11 x10e6/L 11:22 AM [facility] Xanthochromia Fluid Negative Negative 05/01/2023 11:22 AM [facility] Differential Manual Differential to follow. 05/01/2023 11:22 AM [facility] Cerebral spinal fluid CEREBROSPINAL FLUID SPECIMEN / Unknown Collection / Unknown 05/01/2023 9:34 AM INSTRUCTIONAL DESIGN CONSULTANT 05/01/2023 10:41 AM [facility] Narrative [facility] - 05/01/2023 11:22 AM INSTRUCTIONAL DESIGN CONSULTANT No reference ranges established for body fluid cell counts. The reference ranges provided are derived from published literature. The test results must be integrated into the clinical context for interpretation. Bennie Franklin MD LAB - BODY FLUID ORD ERABLES [facility] [address] [place] [address], [place] [phone] * PROTEIN CSF (05/01/2023 9:34 AM INSTRUCTIONAL DESIGN CONSULTANT) Only the most recent of3 resultswithin the time period is included. Protein CSF 36 15 - 45 mg/dL 05/01/2023 11:47 AM INSTRUCTIONAL DESIGN CONSULTANT [facility] Cerebral spinal fluid CEREBROSPINAL FLUID SPECIMEN / Unknown Collection / Unknown 05/01/2023 9:34 AM INSTRUCTIONAL DESIGN CONSULTANT 05/01/2023 10:42 AM INSTRUCTIONAL DESIGN CONSULTANT Bennie Franklin MD LAB - BODY FLUID ORD ERABLES Performing Organization Address City/[facility]/ZIP Co de Phone Number [address] [address], [facility] [phone] * GLUCOSE CSF (05/01/2023 9:34 AM INSTRUCTIONAL DESIGN CONSULTANT) Only the most recent of3 resultswithin the time period is included. Pathologist [facility] Glucose CSF 52 40 - 70 mg/dL 05/01/2023 11:47 AM INSTRUCTIONAL DESIGN CONSULTANT [facility] Cerebral spinal fluid CEREBROSPINAL FLUID SPECIMEN / Unknown Collection / Unknown 05/01/2023 9:34 AM INSTRUCTIONAL DESIGN CONSULTANT 05/01/2023 10:42 AM INSTRUCTIONAL DESIGN CONSULTANT Bennie Franklin MD LAB - BODY FLUID ORD NORIS Performing Organization Address [facility] Co de Phone Number [address] [address], [facility] [phone] * CYTOLOGY NON-LINING SEWER PANEL (STL) (05/01/2023 9:33 AM INSTRUCTIONAL DESIGN CONSULTANT) Only the most recent of3 resultswithin the time period is included. Case Report Medical Cytology Report Case: [id number] Authorizing Provider: Bennie Franklin MD Collected: 05/01/2023 09:33 AM Ordering Location: [facility] 5 ACUTE Received: 05/01/2023 10:49 AM Pathologist: Terri Veliz MD Specimen: CSF 05/03/2023 10:57 AM INSTRUCTIONAL DESIGN CONSULTANT [facility] Specimen Adequacy Adequate cellularity for evaluation. 05/03/2023 10:57 AM INSTRUCTIONAL DESIGN CONSULTANT [facility] Final Diagnosis Cerebrospinal fluid, cytology: - Negative for malignancy or viral inclusions - Few red and white blood cells 05/03/2023 10:57 AM INSTRUCTIONAL DESIGN CONSULTANT [facility] Clinical History Patient is a 67-year-old woman with suspected viral encephalitis. 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 Current microbiology studies are negative. 05/03/2023 10:57 AM [facility] Gross Description 1 diff-quik stained cytospin slide from [facility] clear colorless fluid 05/03/2023 10:57 AM [facility] Microscopic Description Microscopic examination substantiates the final diagnosis. 05/03/2023 10:57 AM [facility] Pathologist Location at [facility] 05/03/2023 10:57 AM [facility] Disclaimer The performance characteristics of all immunohistochemical and indirect immunofluorescence stains (if any) cited in this report were determined by the Histopathology Laboratory of [facility]. Some of these tests rely on the use of analyte-specific reagents and are subject to specific labeling requirements by the US Food and Drug Administration. Such tests were developed by the Histology Laboratory of [facility] and have not been cleared or approved by the FDA. The FDA has determined that such clearance and approval is not necessary. These tests are used for clinical purposes and should not be regarded as investigational or for research. This laboratory is certified under the Clinical Laboratory Improvement Amendments (CLIA) as qualified to perform high complexity clinical laboratory testing. This case has been personally reviewed and interpreted by the attending (teaching) pathologist. 05/03/2023 10:57 AM [facility] Embedded Images 05/03/2023 10:57 AM [facility] Pathology/Cytolo gy CEREBROSPINAL FLUID SPECIMEN / Unknown Collection / Unknown 05/01/2023 9:33 AM INSTRUCTIONAL DESIGN CONSULTANT 05/01/2023 10:49 AM INSTRUCTIONAL DESIGN CONSULTANT Bennie Franklin MD LAB - PATHOLOGY/CYTO LOGY ORDERABLES [facility] [address] [place], [place] [id number] [place] [address] * (ABNORMAL) OLIGOCLONAL BANDS CSF+BLOOD PANEL (05/01/2023 9:33 AM INSTRUCTIONAL DESIGN CONSULTANT) Oligoclonal Bands Negative Negative 023 7:28 PM [facility] ([facility]) Oligoclonial Bands Number Matching 0 - 1 Bands 05/06/2023 7:28 PM [facility]) IgG 1469 768 - 1632 mg/dL 05/06/2023 7:28 PM [facility] ([facility]) IgG CSF 4.9 0.0 - 6.0 mg/dL 05/06/2023 7:28 PM [facility]) Albumin 2734(L) 3500 - 5200 mg/dL 05/06/2023 7:28 PM [facility]) Albumin CSF 21 0 - 35 mg/dL 05/06/2023 7:28 PM [facility]) Albumin Index 7.7 0.0 - 9.0 ratio 05/06/2023 7:28 PM [facility]) IgG Index 0.43 0.28 - 0.66 ratio 05/06/2023 7:28 PM [facility]) IgG/Albumin Ratio CSF 0.23 0.09 - 0.25 ratio 05/06/2023 7:28 PM [facility] ([facility]) Synthesis Rate <0.0 <=8.0 mg/d 05/06/2023 7:28 PM [facility]) Interpretation Oligoclonial See Note 05/06/2023 7:28 PM [facility] ([facility]) Comment: Isoelectric focusing/immunofixation revealed matching or identical oligoclonal bands in the CSF and the serum. This result is consistent with a systemic, not an intrathecal immune reaction, and is considered to be a negative result for oligoclonal bands. Approximately 5 percent of patients with clinically definitive multiple sclerosis will have a negative result. Performed By: [employer] [address] [place] [id number] [employer] Operator: Shawn Gilmore MD, PhD CLIA Number: [id number] Other MISCELLANEOUS SAMPLES / Unknown Collection / Unknown 05/01/2023 9:33 AM INSTRUCTIONAL DESIGN CONSULTANT 05/01/2023 10:42 AM INSTRUCTIONAL DESIGN CONSULTANT Bennie Franklin MD LAB - BODY FLUID ORD ERABLES [employer] ([facility]) [address] [facility] [facility] [place] [place] [address], [facility] * ENCEPHALOPATHY AUTOIMMUNE EVAL BLOOD (04/30/2023 9:09 PM INSTRUCTIONAL DESIGN CONSULTANT) Encephalopathy Autoimmune Eval Blood See Scanned Report 06/15/2023 10:58 AM INSTRUCTIONAL DESIGN CONSULTANT [facility] REF LAB NON INTERF Blood BLOOD SPECIMEN / Unknown Lab Venipuncture / Unknown 04/30/2023 9:09 PM INSTRUCTIONAL DESIGN CONSULTANT 04/30/2023 9:23 PM INSTRUCTIONAL DESIGN CONSULTANT Ozzie Avila MD LAB - CHEMISTRY ESTEPHANIE BARROS [facility] REF LAB NON INTERF [address] [place] [address], [facility] [phone] * MRI SPECTROSCOPY (04/30/2023 5:39 PM INSTRUCTIONAL DESIGN CONSULTANT) Only the most recent of2 resultswithin the time period is included. Anatomical Region Laterality Modality Magnetic Resonan ce 05/01/2023 6:42 AM INSTRUCTIONAL DESIGN CONSULTANT Impressions 05/13/2023 3:32 PM INSTRUCTIONAL DESIGN CONSULTANT IMPRESSION: 1.MRI spectroscopy results are concerning for an underlying neoplasm. There is increased choline and decreased MARIKA in the left temporal lesion, with abnormally decreased MARIKA/creatine ratio and abnormal increased choline/creatine ratio within the left temporal lesion, compared to the contralateral normal contour with foci. 2.While the differentiation between neoplasms and other inflammatory entities such as acute demyelination based on MRS alone may be difficult because both entities typically 3.present with elevated Cho and decreased MARIKA, and well as often times with increased lactate, there is no increase in the glutamate/glutamine peak in the left temporal lesion which is not seen in tumors, additionally, the morphologic appearance of the lesion with significant vasogenic type edema is concerning for an underlying neoplasm. Findings are concerning for necrotic tumor such as glioblastoma multiforme, however, other differential considerations are not completely excluded, including prior report suggestion of evolving encephalitis and other differential considerations given on the prior studies. Clinical correlation and continued attention on follow-up are recommended. > Interpreting Provider: Astrid Joaquin MD on 05/13/2023 3:32 PM Narrative 05/13/2023 3:32 PM INSTRUCTIONAL DESIGN CONSULTANT Note: There is note that attempted MR spectroscopy was first attempted on 04/27/2023 however the study was not completed with only structural images of axial diffusion, axial DTI, as well as postcontrast T1 axial, coronal, and sagittal images acquired but no spectroscopy imaging was completed on the first attempt on 04/27/2023, for accession number [id number]. PROCEDURE: MRI SPECTROSCOPY, MRI SPECTROSCOPY, DATE/TIME OF EXAM: 04/30/2023 5:39 PM, LOCATION [facility] INDICATION: G04.90: Encephalitis ADDITIONAL CLINICAL INFORMATION: Ordering Provider Reason For Exam: evaluation for possible tumor (accession [id number]), possible tumor on left (accession [id number]) Technologist Note: Does the patient have a defibrillator, pacemaker, aneurysm clips or implanted mechanical devices?->No Does the patient have metal implants or stents?->No. 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 Patient presented to the OSH on 04/06 with unresponsiveness and was found to have L temporal territoryinfarct on CTH, neurological exam deteriorated during hospital stay and given CTH showed uncal herniation and pt transferred for NSGY assessment. Patient stated pt had encephalitis in August 2022 with residual cognitive impairment which was slowly improving, she was AOx4 at baseline. She had seizure when she got diagnose of encephalitis has been on Keppra no recurrent sz after med. In the ED pt intubated and on sedation, VSS, Lab significant for Na:128, given 250ml 3% NaCL push, CTH showed L MCA territory infarct with edema and 0.5-1cm midline shift. 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 She was treated with 14 days of acyclovir per ID recommendations. She also developed HAP, UTI while inpatient and was treated for these as well. She had a trach placed by ENT on 04/19 and will need to follow with them after discharge. She has recovered from a neurologic standpoint and will undergo rehabilitation at [facility]. She will follow up with neurology as an outpatient. EXAMINATION: Magnetic resonance spectroscopy (MRS) of the brain without contrast TECHNIQUE: MR spectroscopy of the brain was performed without contrast according to standard protocol. COMPARISON: MRI of the brain from 04/27/2023. FINDINGS: MRI of the brain from 04/27/2023, (accession number [id number]): Structural findings: As mentioned in the noted above, no spectroscopic data were acquired. Redemonstration of a large peripherally enhancing lesion in the left temporal lobe with patchy enhancement extending to the anterior left temporal lobe, and extensive surrounding vasogenic edema throughout the left temporal lobe, extending along the left frontoparietal region and the left external and internal capsules surrounding the left basal ganglia and insula as well as outer aspect of the left thalamus,, with increased peripheral enhancement compared to the prior MRI from 04/19/2023. Please refer to the concurrent structural MRI from the same day, (04/27/2023 for complete description of the the structural findings). No evidence of true restricted diffusion is identified to suggest an acute infarction. Spectroscopic imaging: No spectroscopic data was acquired on 04/27/2023. MRI of the brain spectroscopy from 04/30/2023, (accession number [id number]): Structural findings: Redemonstration of a large peripherally enhancing lesion in the left temporal lobe with patchy enhancement extending to the anterior left temporal lobe, and extensive surrounding vasogenic edema throughout the left temporal lobe, extending along the left frontoparietal region and the left external and internal capsules surrounding the left basal ganglia and the left insula, as well as outer aspect of the left thalamus, with the existent peripheral enhancement similar to the prior MRI from 04/27/2023. Please refer to the prior structural MRI from 04/27/2023 for complete description of the the structural findings. No evidence of true restricted diffusion is identified to suggest an acute infarction. Spectroscopic findings: A large voxel was placed at the left temporal. Another large voxel was placed in the left frontal lobe just above the left temporal abnormality. A control voxel was placed on the right side overlapping the right thalamus and adjacent right insula. At the lesion located in the left temporal peripherally enhancing cystic abnormality, at TE 135, the amplitude of choline at the lesion is increased compared to contralateral choline. The ratio of lesion choline to normal contralateral choline is 1.9. Lesion amplitude of MARIKA compared to contralateral normal is decreased. Lesion creatine amplitude compared to contralateral normal is 0.52. The MARIKA/creatine ratio is 0.62, abnormality decreased, in the left temporal peripherally enhancing cystic lesion and the choline/creatine ratio is 2.17, is abnormally increased, compared to the normal contralateral side measuring 1.47 and 1.37 respectively. At TE 30, lipid/lactate peak was present. An inverted lactate peak not present at TE 135. All metabolites appear to decreased in the left temporal lesion while there is an increased lipid/lactate signal, compared to the normal contralateral side. At TE 30, myoinositol to creatine ratio measures 0.24 which is decreased at the lesion when compared with the contralateral normal with measures 0.67. Procedure Note Astrid Joaquin MD - 05/13/2023 Note: There is note that attempted MR spectroscopy was first attempted on 04/27/2023 however the study was not completed with only structuralimages of axial diffusion, axial DTI, as well as postcontrast T1 axial,coronal, and sagittal images acquired but no spectroscopy imaging was completedon the first attempt on 04/27/2023, for accession number [id number]. PROCEDURE: MRI SPECTROSCOPY, MRI SPECTROSCOPY, DATE/TIME OF EXAM: 04/30/2023 5:39 PM, LOCATION [facility] INDICATION: G04.90: Encephalitis ADDITIONAL CLINICAL INFORMATION: Ordering Provider Reason For Exam: evaluation for possible tumor (accession [id number]), possible tumor on left (accession [id number]) Technologist Note: Does the patient have a defibrillator, pacemaker, aneurysm clips or implanted mechanical devices?->No Does the patienthave metal implants or stents?->No. 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 Patient presented to the OSH on 04/06 with unresponsiveness and was found to have L temporal territoryinfarct onCTH, neurological exam deteriorated during hospital stay and given CTH showed uncal herniation and pt transferred for NSGY assessment. Patient stated pt had encephalitis in August 2022 with residual cognitive impairment which was slowly improving, she was AOx4 atbaseline. She had seizure when she got diagnose of encephalitis has been on Kepprano recurrent sz after med. In the ED pt intubated and on sedation, VSS, Lab significant for Na:128, given 250ml 3% NaCL push, CTH showed L MCA territory infarct with edemaand 0.5-1cm midline shift. 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 She was treated with 14 days of acyclovir per ID recommendations. She also developed HAP, UTI while inpatient and was treated for these as well. She had a trach placed by ENT on 04/19 andwill need to follow with them after discharge. She has recovered from a neurologic standpoint and will undergo rehabilitation at [facility]. She will follow up with neurology as an outpatient. EXAMINATION: Magnetic resonance spectroscopy (MRS) of the brain without contrast TECHNIQUE: MR spectroscopy of the brain was performed without contrast according to standard protocol. COMPARISON: MRI of the brain from 04/27/2023. FINDINGS: MRI of the brain from 04/27/2023, (accession number [id number]): Structural findings: As mentioned in the noted above, no spectroscopic data were acquired. Redemonstration of a large peripherally enhancing lesion in the left temporal lobe with patchy enhancement extending to the anterior left temporal lobe, and extensive surrounding vasogenic edema throughout the left temporal lobe, extending along the left frontoparietal region andthe left external and internal capsules surrounding the left basal gangliaand insula as well as outer aspect of the left thalamus,, with increased peripheral enhancement compared to the prior MRI from 04/19/2023. Please refer to the concurrent structural MRI from the same day, (04/27/2023for complete description of the the structural findings). No evidence oftrue restricted diffusion is identified to suggest an acute infarction. Spectroscopic imaging: No spectroscopic data was acquired on 04/27/2023. MRI of the brain spectroscopy from 04/30/2023, (accession number [id number]): Structural findings: Redemonstration of a large peripherally enhancing lesion in the left temporal lobe with patchy enhancement extending to the anterior left temporal lobe, and extensive surrounding vasogenic edema throughout the left temporal lobe, extending along the left frontoparietal region andthe left external and internal capsules surrounding the left basal gangliaand the left insula, as well as outer aspect of the left thalamus, with the existent peripheral enhancement similar to the prior MRI from04/27/2023. Please refer to the prior structural MRI from 04/27/2023 for complete description of the the structural findings. No evidence of truerestricted diffusion is identified to suggest an acute infarction. Spectroscopic findings: A large voxel was placed at the left temporal. Another large voxel was placed in the left frontal lobe just above the left temporal abnormality.A control voxel was placed on the right side overlapping the rightthalamus and adjacent right insula. At the lesion located in the left temporal peripherally enhancing cystic abnormality, at TE 135, the amplitude of choline at the lesion is increased compared to contralateral choline. The ratio of lesioncholine to normal contralateral choline is 1.9. Lesion amplitude of NAAcompared to contralateral normal is decreased. Lesion creatine amplitudecompared to contralateral normal is 0.52. The MARIKA/creatine ratio is 0.62, abnormality decreased, in the left temporal peripherally enhancingcystic lesion and the choline/creatine ratio is 2.17, is abnormally increased, compared to the normal contralateral side measuring 1.47 and 1.37 respectively. At TE 30, lipid/lactate peak was present. An inverted lactate peak not present at TE 135. All metabolites appear to decreased in the lefttemporal lesion while there is an increased lipid/lactate signal, compared to the normal contralateral side. At TE 30, myoinositol to creatine ratio measures 0.24 which is decreased at the lesion when compared with the contralateral normal with measures 0.67. IMPRESSION: 1.MRI spectroscopy results are concerning for an underlying neoplasm.There is increased choline and decreased MARIKA in the left temporal lesion, with abnormally decreased MARIKA/creatine ratio and abnormal increased choline/creatine ratio within the left temporal lesion, compared to the contralateral normal contour with foci. 2.While the differentiation between neoplasms and other inflammatory entities such as acute demyelination based on MRS alone may be difficult because both entities typically 3.present with elevated Cho and decreased MARIKA, and well as often timeswith increased lactate, there is no increase in the glutamate/glutamine peakin the left temporal lesion which is not seen in tumors, additionally, the morphologic appearance of the lesion with significant vasogenic typeedema is concerning for an underlying neoplasm. Findings are concerning for necrotic tumor such as glioblastoma multiforme, however, otherdifferential considerations are not completely excluded, including prior report suggestion of evolving encephalitis and other differentialconsiderations given on the prior studies. Clinical correlation and continued attentionon follow-up are recommended. > Interpreting Provider: Astrid Joaquin MD on 05/13/2023 3:32 PM Bennie Franklin MD MR ORDERABLES * FL SWALLOWING FUNCTION STUDY (04/30/2023 3:08 PM INSTRUCTIONAL DESIGN CONSULTANT) Anatomical Region Laterality Modality Chest Radiographic Yamilex ging 04/30/2023 3:28 PM INSTRUCTIONAL DESIGN CONSULTANT Narrative 05/01/2023 4:08 PM INSTRUCTIONAL DESIGN CONSULTANT PROCEDURE: FL SWALLOWING FUNCTION STUDY DATE/TIME OF EXAM: 04/30/2023 3:13 PM CLINICAL INFORMATION: None relevant/not provided if blank. Indication: G93.5: Brain herniation (CMS/HCC) COMPARISON: None. TECHNIQUE: Modified barium swallow fluoroscopy performed in conjunction with speech pathology staff. The speech pathologist administered varying thickness barium liquids and solids under direct Cine fluoroscopy. FINDINGS/IMPRESSION: Fluoroscopy was provided for a procedure performed by Speech Therapy. Please see the Speech Therapy report for interpretation. > Dictated by Srinivas Rodríguez MD (Roaster Helper) Peace Padilla MD have personally reviewed and interpreted this examination/study. > Interpreting Provider: Peace Hargrove MD on 05/01/2023 4:08 PM Procedure Note Peace Hargrove MD - 05/01/2023 PROCEDURE: FL SWALLOWING FUNCTION STUDY DATE/TIME OF EXAM: 04/30/2023 3:13 PM CLINICAL INFORMATION: None relevant/not provided if blank. Indication: G93.5: Brain herniation (CMS/HCC) COMPARISON: None. TECHNIQUE: Modified barium swallow fluoroscopy performed in conjunction with speech pathology staff. The speech pathologist administered varying thickness barium liquids and solids under direct Cine fluoroscopy. FINDINGS/IMPRESSION: Fluoroscopy was provided for a procedure performed by Speech Therapy. Please see the Speech Therapy report for interpretation. > Dictated by Srinivas Rodríguez MD (Roaster Helper) Peace Padilla MD have personally reviewed and interpreted this examination/study. > Interpreting Provider: Peace Hargrove MD on 05/01/2023 4:08 PM Bennie Franklin MD FLUOROSCOPY ORDERABL ES * PYRUVATE BLOOD (04/26/2023 9:52 AM INSTRUCTIONAL DESIGN CONSULTANT) Pyruvic Acid 0.061 0.030 - 0.107 mmol/L 04/28/2023 7:50 AM INSTRUCTIONAL DESIGN CONSULTANT [facility] ([facility]) Comment: Performed By: [employer] [address] [place] [address] Steam Conditioning Operator: Shawn Gilmore MD, PhD CLIA Number: [id number] Blood BLOOD SPECIMEN / Unknown Lab Venipuncture / Unknown 04/26/2023 9:52 AM INSTRUCTIONAL DESIGN CONSULTANT 04/26/2023 9:55 AM INSTRUCTIONAL DESIGN CONSULTANT Bennie Franklin MD LAB - CHEMISTRY ESTEPHANIE BARROS [facility] [employer] ([facility]) [address] [place], [place] [address] * LACTIC ACID BLOOD (04/26/2023 9:52 AM INSTRUCTIONAL DESIGN CONSULTANT) [facility] Lactic Acid-Stat 1.1 <=2.0 mmol/L 04/26/2023 10:24 AM INSTRUCTIONAL DESIGN CONSULTANT [facility] Blood BLOOD SPECIMEN / Unknown Lab Venipuncture / Unknown 04/26/2023 9:52 AM INSTRUCTIONAL DESIGN CONSULTANT 04/26/2023 10:03 AM INSTRUCTIONAL DESIGN CONSULTANT Bennie Franklin MD LAB - CHEMISTRY ESTEPHANIE BARROS [facility] [place] [id number] [phone] * (ABNORMAL) HEPATIC FUNCTION PANEL (04/24/2023 8:46 AM INSTRUCTIONAL DESIGN CONSULTANT) [facility] Protein Total 6.0 6.0 - 8.3 g/dL 023 9:35 AM INSTRUCTIONAL DESIGN CONSULTANT [facility] Albumin 2.0(L) 3.4 - 5.0 g/dL 04/24/2023 9:35 AM [facility] Bilirubin Total 0.3 0.2 - 1.2 mg/dL 04/05 9:35 AM [facility] Bilirubin Conjugated 0.2 0.1 - 0.5 mg/dL 04/24/2023 9:35 AM INSTRUCTIONAL DESIGN CONSULTANT [facility] Bilirubin Unconjugated 0.1 Unconjugated Bilirubin is a calculated value: Reference ranges have not been established. mg/dL 04/24/2023 9:35 AM [facility] [facility] Alkaline Phosphatase 65 40 - 150 U/L 04/24/2023 9:35 AM [facility] ALT 37 5 - 55 U/L 04/24/2023 9:35 AM [facility] AST 46(H) 5 - 34 U/L 04/24/2023 9:35 AM [facility] Albumin/Globulin Ratio 0.5(L) 1.1 - 2.3 04/24/2023 9:35 AM [facility] Blood BLOOD SPECIMEN / Unknown Venipuncture / Unknown 04/24/2023 8:46 AM INSTRUCTIONAL DESIGN CONSULTANT 04/24/2023 8:52 AM INSTRUCTIONAL DESIGN CONSULTANT Margot Chamorro MD LAB - CHEMISTRY ESTEPHANIE BARROS [facility] Organization Address City/State/ZIP Co de Phone Number [facility] [address] [place] [address], [facility] [phone] * XR ABDOMEN KUB PORTABLE (04/22/2023 10:26 PM INSTRUCTIONAL DESIGN CONSULTANT) Only the most recent of4 resultswithin the time period is included. Anatomical Region Laterality Modality Abdomen Radiographic Yamilex ging 04/22/2023 11:1 0 PM INSTRUCTIONAL DESIGN CONSULTANT Impressions 04/22/2023 11:11 PM INSTRUCTIONAL DESIGN CONSULTANT IMPRESSION: Feeding tube was removed. Placement of an nasogastric tube terminating in the stomach below the [id number]. There is consolidation lung bases. Lower abdomen is not in [id number]. > Interpreting Provider: Jonh Bruner MD on 04/22/2023 11:11 PM Narrative 04/22/2023 11:11 PM INSTRUCTIONAL DESIGN CONSULTANT PROCEDURE: XR ABDOMEN KUB PORTABLE DATE/TIME OF EXAM: 04/22/2023 10:26 PM CLINICAL INFORMATION: None relevant/not provided if blank. Indication: G93.5: Brain herniation (CMS/HCC) Additional History: COMPARISON: 04/10/2023. Procedure Note Jonh Bruner MD - 04/22/2023 PROCEDURE: XR ABDOMEN KUB PORTABLE DATE/TIME OF EXAM: 04/22/2023 10:26 PM CLINICAL INFORMATION: None relevant/not provided if blank. Indication: G93.5: Brain herniation (CMS/HCC) Additional History: COMPARISON: 04/10/2023. IMPRESSION: Feeding tube was removed. Placement of an nasogastric tube terminatingin the stomach below the [id number]. There is consolidation lung bases. Lower abdomen is not in [id number]. > Interpreting Provider: Jonh Bruner MD on 04/22/2023 11:11 PM Elmer Villalba MD DIAGNOSTIC IMAGING ORDERABLES * MRSA DNA PCR (04/22/2023 6:33 PM INSTRUCTIONAL DESIGN CONSULTANT) Pathologist [facility] MRSA DNA by PCR Not detected Not detected 04/22/2023 9:50 PM INSTRUCTIONAL DESIGN CONSULTANT [facility] MICROBIOLOGY Microbiology SPECIMEN FROM NASAL FOSSAE / Unknown Collection / Unknown 04/22/2023 6:33 PM INSTRUCTIONAL DESIGN CONSULTANT 04/22/2023 6:39 PM INSTRUCTIONAL DESIGN CONSULTANT Narrative [facility] MICROBIOLOGY - 04/22/2023 9:50 PM INSTRUCTIONAL DESIGN CONSULTANT Methicillin-resistant Staphylococcus aureus (MRSA) DNA is not detected (presumed not colonized with MRSA). Elmer Villalba MD LAB - MICROBIOLOGY ORDERABLES [facility] MICROBIOLOGY [address] [place] [address], [facility] [phone] * CULTURE BLOOD (04/22/2023 6:33 PM INSTRUCTIONAL DESIGN CONSULTANT) Only the most recent of2 resultswithin the time period is included. Pathologist [facility] Culture No growth day 5 RYAN 04/27/2023 8:01 PM INSTRUCTIONAL DESIGN CONSULTANT [facility] MICROBIOLOGY Blood PERIPHERAL BLOOD / Unknown Venipuncture / Unknown 04/22/2023 6:33 PM INSTRUCTIONAL DESIGN CONSULTANT 04/22/2023 6:39 PM INSTRUCTIONAL DESIGN CONSULTANT Elmer Villalba MD LAB - MICROBIOLOGY ORDERABLES [facility] MICROBIOLOGY [address] [place] [address], [facility] [phone] * HERPES SIMPLEX 1+2 PCR LESION (04/22/2023 2:09 PM INSTRUCTIONAL DESIGN CONSULTANT) Pathologist [facility] Herpes Simplex Virus 1 PCR Lesion Not detected Not detected 04/22/2023 6:04 PM INSTRUCTIONAL DESIGN CONSULTANT [facility] MICROBIOLOGY Herpes Simplex Virus 2 PCR Lesion Not detected Not detected 04/22/2023 6:04 PM INSTRUCTIONAL DESIGN CONSULTANT [facility] MICROBIOLOGY Microbiology LESION SPECIMEN / Unknown Collection / Unknown 04/22/2023 2:09 PM INSTRUCTIONAL DESIGN CONSULTANT 04/22/2023 2:16 PM INSTRUCTIONAL DESIGN CONSULTANT Elmer Villalba MD LAB - MICROBIOLOGY ORDERABLES [facility] MICROBIOLOGY [address] [place] [address], [facility] [phone] * VARICELLA ZOSTER PCR (04/22/2023 2:09 PM INSTRUCTIONAL DESIGN CONSULTANT) [facility] Varicella zoster Virus PCR Not Detected 05/01/2023 10:57 PM INSTRUCTIONAL DESIGN CONSULTANT [facility] Comment: NOT DETECTED - A negative result does not rule out the presence of PCR inhibitors in the patient specimen or assay specific nucleic acid in concentrations below the level of detection by the assay. INTERPRETIVE INFORMATION: Varicella-Zoster Virus by PCR This test was developed and its performance characteristics determined by [facility]. It has not been cleared or approved by the US Food and Drug Administration. This test was performed in a CLIA certified laboratory and is intended for clinical purposes. Performed By: [employer] [address] [place] [address] Steam Conditioning Operator: Shawn Gilmore MD, PhD CLIA Number: [id number] Varicella zoster Virus Source CSF 05/01/2023 10:57 PM INSTRUCTIONAL DESIGN CONSULTANT [facility]) Microbiology LESION SPECIMEN / Unknown Collection / Unknown 04/22/2023 2:09 PM INSTRUCTIONAL DESIGN CONSULTANT 04/22/2023 2:16 PM INSTRUCTIONAL DESIGN CONSULTANT Elmer Villalba MD LAB - MICROBIOLOGY ORDERABLES Performing Organization Address City/[facility]/ZIP Co de Phone Number [facility]) [address] [place] [address] * (ABNORMAL) URINALYSIS REFLEX TO MICROSCOPIC NO CULTURE (04/22/2023 9:53 AM INSTRUCTIONAL DESIGN CONSULTANT) [facility] Color UA Yellow Straw, Yellow 04/22/2023 10:26 AM [facility] Clarity UA Slt Cloudy(A) Clear 04/22/2023 10:26 AM [facility] Specific Bearden UA 1.012 1.005 - 1.030 04/22/2023 10:26 AM [facility] pH UA 6.0 5.0 - 8.0 pH 04/22/2023 10:26 AM [facility] Protein UA 1+(A) Negative 04/22/2023 10:26 AM [facility] Glucose UA Negative Negative 04/22/2023 10:26 AM [facility] Ketone UA Negative Negative 04/22/2023 10:26 AM [facility] Bilirubin UA Negative Negative 04/22/2023 10:26 AM [facility] Blood UA Negative Negative 04/22/2023 10:26 AM [facility] Nitrite UA Negative Negative 04/22/2023 10:26 AM [facility] Leukocyte Esterase 1+(A) Negative 04/22/2023 10:26 AM [facility] Urobilinogen UA 4.0(A) Negative mg/dL 04/22/2023 10:26 AM [facility] RBC UA 6-10(A) None Seen, 0-2, 3-5 /HPF 04/22/2023 10:26 AM [facility] WBC UA 11-20(A) None Seen, 0-5 /HPF 04/22/2023 10:26 AM [facility] Bacteria UA Trace(A) None /HPF 04/22/2023 10:26 AM [facility] Squamous Epithelial Cells UA 0-2 None Seen, 0-2, 3-5 /HPF 04/22/2023 10:26 AM [facility] Mucus UA 1+ /LPF 04/22/2023 10:26 AM [facility] Urine URINE SPECIMEN OBTAINED BY CLEAN CATCH PROCEDURE / Unknown Collection / Unknown 04/22/2023 9:53 AM INSTRUCTIONAL DESIGN CONSULTANT 04/22/2023 10:08 AM [facility] - 04/22/2023 10:26 AM [facility] Elmer Villalba MD LAB - URINALYSIS OR DERABLES [place] [address] [place] [address], [facility] [phone] * XR CHEST 1VW PORTABLE (04/22/2023 8:43 AM INSTRUCTIONAL DESIGN CONSULTANT) Only the most recent of4 resultswithin the time period is included. Anatomical Region Laterality Modality Chest Radiographic Yamilex ging 04/22/2023 11:1 5 AM INSTRUCTIONAL DESIGN CONSULTANT Narrative 04/22/2023 3:47 PM INSTRUCTIONAL DESIGN CONSULTANT PROCEDURE: XR CHEST 1VW PORTABLE, DATE/TIME OF EXAM: 04/22/2023 8:43 AM, LOCATION [facility] INDICATION: J96.00: Acute respiratory failure, unspecified whether with hypoxia or hypercapnia (CMS/HCC) ADDITIONAL CLINICAL INFORMATION: Ordering Provider Reason For Exam: Pneumonia COMPARISON: Chest radiograph 04/18/2023 FINDINGS/IMPRESSION: Lines, tubes, hardware: *Tracheostomy tube terminates in the midthoracic trachea. *Enteric tube seen coursing below the diaphragm with tip outside gelwk-[id number]. Improving previously seen bilateral pleural effusion. Mild interstitial opacities could be due to the relatively low lung volumes. No pneumothorax is visible. The cardiac silhouette is enlarged. Report dictated by Alpesh Grider MD (university president). IJulián DO have personally reviewed and interpreted this examination/study. > Interpreting Provider: Julián Choi DO on 04/22/2023 3:47 PM Procedure Note Julián Choi DO - 04/22/2023 PROCEDURE: XR CHEST 1VW PORTABLE, DATE/TIME OF EXAM: 04/22/2023 8:43AM, LOCATION [facility] INDICATION: J96.00: Acute respiratory failure, unspecified whether with hypoxia or hypercapnia (CMS/HCC) ADDITIONAL CLINICAL INFORMATION: Ordering Provider Reason For Exam: Pneumonia COMPARISON: Chest radiograph 04/18/2023 FINDINGS/IMPRESSION: Lines, tubes, hardware: *Tracheostomy tube terminates in the midthoracic trachea. *Enteric tube seen coursing below the diaphragm with tip outside [id number]. Improving previously seen bilateral pleural effusion. Mild interstitial opacities could be due to the relatively low lung volumes. Nopneumothorax is visible. The cardiac silhouette is enlarged. Report dictated by Alpesh Grider MD (university president). I, Julián Choi DO have personally reviewed and interpreted this examination/study. > Interpreting Provider: Julián Choi DO on 04/22/2023 3:47 PM Elmer Villalba MD DIAGNOSTIC IMAGING ORDERABLES * (ABNORMAL) CULTURE SPUTUM+GRAM STAIN (04/22/2023 8:25 AM INSTRUCTIONAL DESIGN CONSULTANT) Culture Moderate Enterobacter cloacae complex(A) RYAN 04/24/2023 4:12 AM INSTRUCTIONAL DESIGN CONSULTANT [facility] MICRO[facility] Culture Moderate normal oropharyngeal judy RYAN 04/24/2023 4:12 AM INSTRUCTIONAL DESIGN CONSULTANT [facility] MICROBIOLOG[facility] Culture Moderate Moraxella catarrhalis (beta-lactamase positive)(A) 04/24/2023 4:12 AM INSTRUCTIONAL DESIGN CONSULTANT [facility] MICROBIOLOGY Gram Stain >= 25 per low power field Polymorphonuclear cells 04/24/2023 4:12 AM INSTRUCTIONAL DESIGN CONSULTANT [facility] MICROBIOLOG[facility] Gram Stain <10 per low power field Squamous epithelial cells 04/24/2023 4:12 AM INSTRUCTIONAL DESIGN CONSULTANT [facility] MICROBIOLOG[facility] Gram Stain Light Gram-positive cocci 04/24/2023 4:12 AM INSTRUCTIONAL DESIGN CONSULTANT [facility] MICROBIOLOG[facility] Gram Stain Light Gram-positive bacilli 04/24/2023 4:12 AM INSTRUCTIONAL DESIGN CONSULTANT [facility] MICROBIOLOG[facility] Gram Stain Rare Gram-negative bacilli 04/24/2023 4:12 AM INSTRUCTIONAL DESIGN CONSULTANT [facility] MICROBIOLOGY Microbiology SPUTUM / Unknown Collection / Unknown 04/22/2023 8:25 AM INSTRUCTIONAL DESIGN CONSULTANT 04/22/2023 8:33 AM INSTRUCTIONAL DESIGN CONSULTANT Narrative [facility] MICROBIOLOGY - 04/24/2023 4:12 AM INSTRUCTIONAL DESIGN CONSULTANT Enterobacter, Citrobacter, Serratia, and Klebsiella (formerly Enterobacter) aerogenes may develop resistance during prolonged therapy with third-generation cephalosporins as a result of derepression of AmpC beta-lactamase. Therefore, isolates that are initially susceptible may become resistant within 3 or 4 days after initiation of therapy. Testing of repeat isolates may be warranted. Organism Antibiotic Method Susceptibility Enterobacter cloacae complex Amikacin RYAN <=2 ug/mL: Susceptible Enterobacter cloacae complex Cefepime RAYN <=1 ug/mL: Susceptible Enterobacter cloacae complex Ceftriaxone RYAN <=1 ug/mL: Susceptible Enterobacter cloacae complex Ciprofloxacin RYAN <=0.25 ug/mL: Susceptible Enterobacter cloacae complex Gentamicin RYAN <=1 ug/mL: Susceptible Enterobacter cloacae complex Meropenem RYAN <=0.25 ug/mL: Susceptible Enterobacter cloacae complex Piperacillin-tazobactam RYAN <=4 ug/mL: Susceptible Enterobacter cloacae complex Tobramycin RYAN <=1 ug/mL: Susceptible Enterobacter cloacae complex Trimethoprim-sulfamethoxaz ole RYAN <=20 ug/mL: Susceptible Elmer Villalba MD LAB - MICROBIOLOGY ORDERABLES Performing Organization Address City/[facility]/ZIP Co de Phone Number [facility] MICROBIOLOGY [address] [place], [place] [address], [facility] [phone] * EKG 12-LEAD (04/19/2023 11:08 AM INSTRUCTIONAL DESIGN CONSULTANT) Only the most recent of2 resultswithin the time period is included. Ventricular Rate 78 BPM [facility] Atrial Rate 78 BPM [facility] P-R Interval 192 ms [facility] QRS Duration ms 68 ms [facility] Q-T Interval ms 326 ms [facility] QTC Calculation (Bezet) 371 ms [facility] Calculated P [place] 38 degrees [facility] MUSE Calculated R Almond 3 degrees [facility] MUSE Calculated T Almond 18 degrees [facility] Interpretation EKG NORMAL SINUS RHYTHM LOW VOLTAGE QRS INFERIOR INFARCT (CITED ON OR BEFORE 11-APR-2023) CANNOT RULE OUT ANTEROSEPTAL INFARCT (CITED ON OR BEFORE 11-APR-2023) ABNORMAL ECG WHEN COMPARED WITH ECG OF 11-APR-2023 09:31, VT INTERVAL HAS DECREASED VENT. RATE HAS INCREASED BY 33 BPM Confirmed by MD CYNTHIA, VINAY ([id number]) on 04/19/2023 1:35:59 PM [facility] 04/19/2023 11:0 8 AM INSTRUCTIONAL DESIGN CONSULTANT 04/19/2023 1:35 PM INSTRUCTIONAL DESIGN CONSULTANT Elmer Villalba MD ECG ORDERABLES Performing Organization Address City/[facility]/ZIP Co de Phone Number [facility] * HEPATITIS C AB SCREEN RFLX NAAT QUANT (04/18/2023 2:22 PM INSTRUCTIONAL DESIGN CONSULTANT) Hepatitis C Antibody Non-react denny Non-reac tive 04/18/2023 3:57 PM INSTRUCTIONAL DESIGN CONSULTANT [facility] Comment:Hepatitis C Antibody screen indicates no serologic evidence of past or current infection with Hepatitis C Virus. Patients with unexplained liver disease who are immunocompromised or suspected of having acute Hepatitis C infection may benefit from Nucleic Acid Test (BRYANT) for Hepatitis C Viral RNA to confirm Hepatitis C status. Blood BLOOD SPECIMEN / Unknown Venipuncture / Unknown 04/18/2023 2:22 PM INSTRUCTIONAL DESIGN CONSULTANT 04/18/2023 2:25 PM INSTRUCTIONAL DESIGN CONSULTANT Margot Chamorro MD LAB - CHEMISTRY ESTEPHANIE BARROS [address] [address], [place] [phone] * HIV-1 HIV-2 ANTIBODY + HIV P24 AG PANEL (04/18/2023 2:22 PM INSTRUCTIONAL DESIGN CONSULTANT) Pathologist [facility] HIV Antigen/Antibod y 1 & 2 Non-reacti ve Non-react denny 04/18/2023 3:57 PM INSTRUCTIONAL DESIGN CONSULTANT [facility] Comment:No Laboratory eviden ce of HIV infection. Blood BLOOD SPECIMEN / Unknown Venipuncture / Unknown 04/18/2023 2:22 PM INSTRUCTIONAL DESIGN CONSULTANT 04/18/2023 2:25 PM INSTRUCTIONAL DESIGN CONSULTANT aMrgot Chamorro MD LAB - CHEMISTRY ESTEPHANIE BARROS [address] [address], [place] [phone] * CT CHEST ABDOMEN PELVIS W CONT (04/18/2023 1:10 PM INSTRUCTIONAL DESIGN CONSULTANT) Anatomical Region Laterality Modality Chest, Abdomen, Pelvis Computed Tomography 04/18/2023 1:41 PM INSTRUCTIONAL DESIGN CONSULTANT Impressions 04/18/2023 4:08 PM INSTRUCTIONAL DESIGN CONSULTANT Impression: 1.Age indeterminate compression deformity with approximately 25% anterior vertebral height loss of the L1 vertebral body with mixed sclerotic and lytic appearance. Pathologic fracture is not entirely excluded. Otherwise no evidence of metastatic disease/malignancy in the chest/abdomen/pelvis. 2.Endotracheal tube terminates in the proximal right mainstem bronchus, recommend retraction. 3.Small bilateral pleural effusions and mild pulmonary edema with cardiomegaly. 4.Edema/stranding in the left supraclavicular region, please clinically correlate to an interventional procedure on that side. Prelim findings regarding ETT reported to Dr. Neto Silver by Dr. Jimenez on 04/18/2023 at 1:55 pm via telephone with readback confirmation. > Dictated by Krystal Jimenez DO (university president). > Dictated by Krystal Jimenez DO (Roaster Helper) 04/18/2023 1:41 PM IHenry MD have personally reviewed and interpreted this examination/study. 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 TECHNIQUE: CT of the chest, abdomen, and pelvis was performed after the uneventful administration of 100 mL of Isovue 370 intravenous contrast according to standard protocol. Findings: Chest: Lower Neck and Axillae: The endotracheal tube terminates in the proximal right mainstem bronchus. There is edema/stranding in the left supraclavicular region . Lungs: Small bilateral pleural effusions with adjacent atelectasis. There is mild pulmonary edema. Heart and Pericardium: The heart is enlarged. No pericardial fluid or thickening is present. Mediastinum and Bettie: No mediastinal mass is present. No enlarged lymph nodes are present. Thoracic Vasculature: No vascular abnormality is present. Abdomen/pelvis: Liver: Multiple hypodense lesions throughout the liver are present, some of which are too small to characterize but measuring up to 2.6 cm and likely represent hepatic cysts. There is mild periportal edema. Gallbladder and Bile Ducts: The gallbladder is contracted. There is no biliary dilation. Spleen: Normal. Pancreas: Normal. Adrenals: Normal. Kidneys: Normal. Gastrointestinal: An enteric tube courses through the esophagus and stomach with tip in the body of the stomach. Small bowel is unremarkable. There is liquid stool throughout the colon. Normal appendix. Mesentery/Peritoneum/Retroperitoneum: No free intraperitoneal air. Trace free fluid in the abdomen or pelvis. Bladder: Normal. Reproductive Organs: The uterus is normal. Abdominal Vasculature: Atherosclerotic calcification of the aorta and its branch vessels. Bones: Large Schmorl's node of the T6 superior endplate. There are Schmorl's nodes at multiple additional levels in the spine. Anterior endplate concavity of L4 which may represent a mild chronic compression deformity. There is an age indeterminate compression deformity with approximately 25% anterior vertebral height loss of the L1 vertebral body with mixed sclerotic and lytic appearance. Pathologic fracture is not entirely excluded. Soft tissues: Anasarca. Procedure Note Nazia Bonds MD - 04/18/2023 PROCEDURE: CT CHEST ABDOMEN PELVIS W CONT, DATE/TIME OF EXAM:04/18/2023 1:11 PM, LOCATION [facility] INDICATION: G93.5: Brain herniation (CMS/HCC) ADDITIONAL CLINICAL INFORMATION: Ordering Provider Reason For Exam: cancer screening/ovarian cancercausing encephalitis COMPARISON: None. TECHNIQUE: CT of the chest, abdomen, and pelvis was performed after the uneventful administration of 100 mL of Isovue 370 intravenous contrast according to standard protocol. Findings: Chest: Lower Neck and Axillae: The endotracheal tube terminates in the proximal right mainstembronchus. There is edema/stranding in the left supraclavicular region . Lungs: Small bilateral pleural effusions with adjacent atelectasis. There ismild pulmonary edema. Heart and Pericardium: The heart is enlarged. No pericardial fluid or thickening is present. Mediastinum and Bettie: No mediastinal mass is present. No enlarged lymph nodes are present. Thoracic Vasculature: No vascular abnormality is present. Abdomen/pelvis: Liver: Multiple hypodense lesions throughout the liver are present, some ofwhich are too small to characterize but measuring up to 2.6 cm and likely represent hepatic cysts. There is mild periportal edema. Gallbladder and Bile Ducts: The gallbladder is contracted. There is no biliary dilation. Spleen: Normal. Pancreas: Normal. Adrenals: Normal. Kidneys: Normal. Gastrointestinal: An enteric tube courses through the esophagus and stomach with tip inthe body of the stomach. Small bowel is unremarkable. There is liquid stool throughout the colon. Normal appendix. Mesentery/Peritoneum/Retroperitoneum: No free intraperitoneal air. Trace free fluid in the abdomen or pelvis. Bladder: Normal. Reproductive Organs: The uterus is normal. Abdominal Vasculature: Atherosclerotic calcification of the aorta and its branch vessels. Bones: Large Schmorl's node of the T6 superior endplate. There are Schmorl'snodes at multiple additional levels in the spine. Anterior endplate concavityof L4 which may represent a mild chronic compression deformity. There is an age indeterminate compression deformity with approximately 25% anterior vertebral height loss of the L1 vertebral body with mixed sclerotic and lytic appearance. Pathologic fracture is not entirely excluded. Soft tissues: Anasarca. Impression: 1.Age indeterminate compression deformity with approximately 25%anterior vertebral height loss of the L1 vertebral body with mixed sclerotic and lytic appearance. Pathologic fracture is not entirely excluded.Otherwise no evidence of metastatic disease/malignancy in thechest/abdomen/pelvis. 2.Endotracheal tube terminates in the proximal right mainstem bronchus, recommend retraction. 3.Small bilateral pleural effusions and mild pulmonary edema with cardiomegaly. 4.Edema/stranding in the left supraclavicular region, please clinically correlate to an interventional procedure on that side. Prelim findings regarding ETT reported to Dr. Neto Silver by Dr. Jimenez on 04/18/2023 at 1:55 pm via telephone with readbackconfirmation. > Dictated by Krystal Jimenez DO (university president). > Dictated by Krystal Jimenez DO (Roaster Helper) 04/18/2023 1:41 PM IHenry MD have personally reviewed and interpreted this examination/study. > Interpreting Provider: Henry Bonds MD on 04/18/2023 4:08 PM Margot Chamorro MD CT ORDERABLES * ENCEPHALOPATHY AUTOIMMUNE EVAL CSF (04/18/2023 11:47 AM INSTRUCTIONAL DESIGN CONSULTANT) Only the most recent of2 resultswithin the time period is included. Encephalopathy Autoimmune Eval CSF See Scanned Report 04/26/2023 7:00 AM INSTRUCTIONAL DESIGN CONSULTANT [facility] REF LAB NON INTERF Cerebral spinal fluid CEREBROSPINAL FLUID SPECIMEN / Unknown Collection / Unknown 04/18/2023 11:47 AM INSTRUCTIONAL DESIGN CONSULTANT 04/18/2023 1:04 PM INSTRUCTIONAL DESIGN CONSULTANT Margot Chamorro MD LAB - BODY FLUID ORD ERABLES Performing Organization Address City/[facility] Co de Phone Number [facility] REF [facility] NON INTERF [address] [place] [address], [facility] [phone] * CRYPTOCOCCUS ANTIGEN CSF (04/18/2023 11:47 AM INSTRUCTIONAL DESIGN CONSULTANT) Cryptococcus Antigen CSF Negative Negative 04/18/2023 6:21 PM INSTRUCTIONAL DESIGN CONSULTANT [facility] MICROBIOLOGY Cerebral spinal fluid CEREBROSPINAL FLUID SPECIMEN / Unknown Collection / Unknown 04/18/2023 11:47 AM INSTRUCTIONAL DESIGN CONSULTANT 04/18/2023 1:04 PM INSTRUCTIONAL DESIGN CONSULTANT Elmer Villalba MD LAB - MICROBIOLOGY ORDERABLES Performing Organization Address [facility] de Phone Number [facility] MICROBIOLOGY [address] [place] [address], [facility] [phone] * ENTEROVIRUS PCR CSF (04/18/2023 11:47 AM INSTRUCTIONAL DESIGN CONSULTANT) Only the most recent of2 resultswithin the time period is included. Pathologist [facility] Enterovirus by PCR Not detected Not detected, Indeterminate 04/18/2023 8:04 PM INSTRUCTIONAL DESIGN CONSULTANT [facility]CRO[facility]OLOG[facility] Comment:Notes^^[id number] Cerebral spinal fluid CEREBROSPINAL FLUID SPECIMEN / Unknown Collection / Unknown 04/18/2023 11:47 AM INSTRUCTIONAL DESIGN CONSULTANT 04/18/2023 1:04 PM INSTRUCTIONAL DESIGN CONSULTANT Elmer Villalba MD LAB - MICROBIOLOGY ORDERABLES Performing Organization Address [facility] de Phone Number [facility]CRO[facility] [address] [place] [phone], [facility] [phone] * VARICELLA ZOSTER ANTIBODY IGM CSF (04/18/2023 11:47 AM INSTRUCTIONAL DESIGN CONSULTANT) Only the most recent of2 resultswithin the time period is included. Varicella zoster Virus Antibody IgM CSF 0.00 <=0.90 ISR 04/19/2023 9:29 PM INSTRUCTIONAL DESIGN CONSULTANT [facility] [employer] ([facility]) Comment: INTERPRETIVE INFORMATION: VZV Ab, IgM, CSF 0.90 ISR or less ........ Negative - No significant level of IgM antibody to varicella- zoster detected. 0.91 - 1.09 ISR ......... Equivocal - Repeat testing in 10-14 days may be helpful. 1.10 ISR or greater ..... Positive - Significant level of IgM antibody to varicella- zoster virus detected, which may indicate current or recent infection. However, low levels of antibodies may occasionally persist for more than 12 months post-infection. While the presence of IgM antibodies suggest current or recent infection, low levels of IgM antibodies may occasionally persist for more than 12 months post-infection. The detection of antibodies to varicella-zoster in CSF may indicate central nervous system infection. However, consideration must be given to possible contamination by blood or transfer of serum antibodies across the blood-brain barrier. This test was developed and its performance characteristics determined by [employer]. It has not been cleared or approved by the US Food and Drug Administration. This test was performed in a CLIA certified laboratory and is intended for clinical purposes. Performed By: [employer] [address] [place] [address] Steam Condition[employer] Operator: Shawn Gilmore MD, PhD CLIA Number: [id number] Cerebral spinal fluid CEREBROSPINAL FLUID SPECIMEN / Unknown Collection / Unknown 04/18/2023 11:47 AM INSTRUCTIONAL DESIGN CONSULTANT 04/18/2023 1:04 PM INSTRUCTIONAL DESIGN CONSULTANT Elmer Villalba MD LAB - BODY FLUID OR DERABLES [facility]) [address] [place] [address], [facility] * WEST NILE ANTIBODY IGG/IGM CSF PANEL (04/18/2023 11:47 AM INSTRUCTIONAL DESIGN CONSULTANT) [facility] West Nile IgG Ab CSF 0.18 <=1.29 IV 04/19/2023 11:54 PM INSTRUCTIONAL DESIGN CONSULTANT [facility] ([facility]) Comment: INTERPRETIVE INFORMATION: West Nile Virus Ab IgG by MARLY, CSF 1.29 IV or less ....... Negative: No significant level of West Nile virus IgG antibody detected. 1.30 - 1.49 IV ........ Equivocal: Questionable presence of West Nile virus IgG antibody detected. Repeat testing in 10-14 days may be helpful. 1.50 IV or greater .... Positive: Presence of IgG antibody to West Nile virus detected, suggestive of current or past infection. This test is intended to be used as a semi-quantitative means of detecting West Nile virus-specific IgG in CSF samples in which there is a clinical suspicion of West Nile Virus infection. This test should not be used solely for quantitative purposes, nor should the results be used without correlation to clinical history or other data. Because other members of the Flaviviridae family, such as Brooks encephalitis virus, show extensive cross-reactivity with West Nile virus, serologic testing specific for these species should be considered. The detection of antibodies to West Nile virus in cerebrospinal fluid may indicate central nervous system infection. However, consideration must be given to possible contamination by blood or transfer of serum antibodies across the blood-brain barrier. This test was developed and its performance characteristics determined by [employer]. It has not been cleared or approved by the US Food and Drug Administration. This test was performed in a CLIA certified laboratory and is intended for clinical purposes. West Nile IgM Ab CSF 0.15 <=0.89 IV 04/19/2023 11:54 PM INSTRUCTIONAL DESIGN CONSULTANT [employer] ([facility]) Comment: INTERPRETIVE INFORMATION: West Nile Virus Ab IgM by MARLY, CSF 0.89 IV or less ...... Negative - No significant level of West Nile virus IgM antibody detected. 0.90-1.10 IV ......... Equivocal - Questionable presence of West Nile virus IgM antibody detected. Repeat testing in 10-14 days may be helpful. 1.11 IV or greater ... Positive - Presence of IgM antibody to West Nile virus detected, suggestive of current or recent infection. This test is intended to be used as a semi-quantitative means of detecting West Nile virus-specific IgM in CSF samples in which there is a clinical suspicion of West Nile virus infection. This test should not be used solely for quantitative purposes, nor should the results be used without correlation to clinical history or other data. Because other members of the Flaviviridae family, such as Brooks encephalitis virus, show extensive cross-reactivity with West Nile virus, serologic testing specific for these species should be considered. The detection of antibodies to West Nile virus in cerebrospinal fluid may indicate central nervous system infection. However, consideration must be given to possible contamination by blood or transfer of serum antibodies across the blood-brain barrier. This test was developed and its performance characteristics determined by [employer]. It has not been cleared or approved by the US Food and Drug Administration. This test was performed in a CLIA certified laboratory and is intended for clinical purposes. Performed By: [facility] [employer] [address] [place] [address] Steam Conditioning Operator: Shawn Gilmore MD, PhD CLIA Number: [id number] Cerebral spinal fluid CEREBROSPINAL FLUID SPECIMEN / Unknown Collection / Unknown 04/18/2023 11:47 AM INSTRUCTIONAL DESIGN CONSULTANT 04/18/2023 1:04 PM INSTRUCTIONAL DESIGN CONSULTANT Elmer Villalba MD LAB - BODY FLUID OR DERABLES Performing Organization Address City[facility] Co de Phone Number [facility]) [address] [place] [address] * HERPES SIMPLEX 1+2 PCR CSF (04/18/2023 11:47 AM INSTRUCTIONAL DESIGN CONSULTANT) Only the most recent of2 resultswithin the time period is included. Herpes Simplex Virus 1 PCR CSF Not detected Not detected 04/18/2023 6:07 PM INSTRUCTIONAL DESIGN CONSULTANT [facility]CRO[facility] Herpes Simplex Virus 2 PCR CSF Not detected Not detected 04/18/2023 6:07 PM INSTRUCTIONAL DESIGN CONSULTANT [facility] Cerebral spinal fluid CEREBROSPINAL FLUID SPECIMEN / Unknown Collection / Unknown 04/18/2023 11:47 AM INSTRUCTIONAL DESIGN CONSULTANT 04/18/2023 1:04 PM INSTRUCTIONAL DESIGN CONSULTANT Elmer Villalba MD LAB - MICROBIOLOGY ORDERABLES [facility] [address] [place] [address], [facility] [phone] * VIRAL CULTURE MISC (04/18/2023 11:47 AM INSTRUCTIONAL DESIGN CONSULTANT) Final Report SEE NOTE 04/30/2023 10:31 AM INSTRUCTIONAL DESIGN CONSULTANT [facility] ([facility]) Comment: Culture negative For WALLPAPERER HELPER infections due to cultivable viruses (e.g., herpes simplex virus, enterovirus), nucleic-acid amplification based methods are superior to culture- based methods and should be performed if clinically indicated. Performed By: [facility] [employer] [address] [place] [address] Steam Condition[employer] Operator: Shawn Gilmore MD, PhD CLIA Number: [id number] Prelim Report SEE NOTE 04/30/2023 10:31 AM INSTRUCTIONAL DESIGN CONSULTANT [facility]) Comment: Specimen received and in progress. Performed By: [facility] [employer] [address] [place] [address] Steam Condition[employer] Operator: Shawn Gilmore MD, PhD CLIA Number: [id number] Cerebral spinal fluid CEREBROSPINAL FLUID SPECIMEN / Unknown Collection / Unknown 04/18/2023 11:47 AM INSTRUCTIONAL DESIGN CONSULTANT 04/18/2023 1:04 PM INSTRUCTIONAL DESIGN CONSULTANT Elmer Villalba MD LAB - MICROBIOLOGY ORDERABLES Performing Organization Address City/State/[facility] Co de Phone Number [facility]) [address] [place] [address] * (ABNORMAL) BLOOD GASES ART + COOX PANEL (04/12/2023 7:29 PM INSTRUCTIONAL DESIGN CONSULTANT) Only the most recent of4 resultswithin the time period is included. pH Arterial 7.39 7.35 - 7.45 pH 04/12/2023 7:37 PM [facility] pO2 Arterial 115(H) 80 - 100 mmHg 04/12/2023 7:37 PM [facility] pCO2 Arterial 36 35 - 45 mmHg 7:37 PM [facility] HCO3 Arterial 21.8 20.0 - 30.0 mmol/L 04/12/2023 7:37 PM [facility] BE Arterial -2.8(L) -2.0 - 2.0 mmol/L 04/12/2023 7:37 PM [facility] Oxyhemoglobin Arterial 96.1 % 04/12/2023 7:37 PM [facility] Dexoyhemoglobin (HHB) % 2.4 % 04/12/2023 7:37 PM [facility] Methemoglobin 1.0 0.0 - 2.0 % 04/12/2023 7:37 PM [facility] Carboxyhemoglobin 0.5 0.0 - 2.0 % 2022 7:37 PM [facility] O2 Content Arterial 13.7 Interpret within clinical context ml/dL 04/12/2023 7:37 PM [facility] Hemoglobin by COOX 10.0(L) 12.0 - 15.6 g/dL 04/12/2023 7:37 PM [facility] O2 Saturation Arterial 98 90 - 100 % 04/12/2023 7:37 PM [facility] FI O2 Arterial 50.0 % 04/12/2023 7:37 PM [facility] Blood, arterial ARTERIAL BLOOD SPECIMEN / Unknown Arterial Puncture / Unknown 04/12/2023 7:29 PM INSTRUCTIONAL DESIGN CONSULTANT 04/12/2023 7:32 PM INSTRUCTIONAL DESIGN CONSULTANT Narrative [facility] - 04/12/2023 7:37 PM INSTRUCTIONAL DESIGN CONSULTANT Carboxyhemoglobin Normal Concentration: Non-smokers: 0-2%; Smokers: 0-9%; Toxic: >20% Margot Chamorro MD LAB - BLOOD GASES OR DERABLES [address] [address], [facility] [phone] * QUANTIFERON-TB GOLD PLUS 4-TUBE (04/12/2023 3:01 PM INSTRUCTIONAL DESIGN CONSULTANT) QuantiFERON NIL 0.02 IU/mL 5:38 AM INSTRUCTIONAL DESIGN CONSULTANT [employer] ([facility]) Comment: Performed By: [employer] [address] [place] [id number] Steam Condition[employer] Operator: Shawn Gilmore MD, PhD CLIA Number: [id number] QuantiFERON TB Gold Plus Indeterminate Negative 04/15/2023 5:38 AM INSTRUCTIONAL DESIGN CONSULTANT [employer] ([facility]) Comment: Negative Mitogen response: Negative mitogen response may occur either due to T-Cell anergy or mishandling of the specimen draw tubes. Repeat testing may be helpful. Interpretive Data: Quantiferon TB Gold Plus Interferon gamma release is measured for specimens from each of the four collection tubes. A qualitative result (Negative, Positive, or Indeterminate) is based on interpretation of the four values, NIL, MITOGEN minus NIL (MITOGEN-NIL), TB1 minus NIL (TB1-NIL), and TB2 minus NIL (TB2-NIL). The NIL value represents nonspecific reactivity produced by the patient specimen. The MITOGEN-NIL value serves as the positive control for the patient specimen, demonstrating successful lymphocyte activity. The TB1-NIL tube specifically detects CD4+ lymphocyte reactivity, specifically stimulated by the TB1 antigens. The TB2-NIL tube detects both CD4+ and CD8+ lymphocyte reactivity, stimulated by TB2 antigens. An overall Negative result does not completely rule out TB infection. A false-positive result in the absence of other clinical evidence of TB infection is not uncommon. Refer to: Updated Guidelines for Using Interferon Gamma Release Assays to Detect Mycobacterium tuberculosis Infection --- [place], 2010 (http://www.cdc.gov/mmwr/preview/mmwrhtml/ld0376h1.htm), for more information concerning test performance in low-prevalence populations and use in occupational screening. QuantiFERON Plus TB1 Minus NIL 0.00 0.00 - 0.34 IU/mL 04/15/2023 5:38 AM INSTRUCTIONAL DESIGN CONSULTANT [employer] ([facility]) QuantiFERON Plus TB2 Minus NIL 0.00 0.00 - 0.34 IU/mL 04/15/2023 5:38 AM INSTRUCTIONAL DESIGN CONSULTANT [facility] ([facility]) QuantiFERON Mitogen Minus NIL 0.16 IU/mL 04/15/2023 5:38 AM INSTRUCTIONAL DESIGN CONSULTANT [facility]) Blood BLOOD SPECIMEN / Unknown Venipuncture / Unknown 04/12/2023 3:01 PM INSTRUCTIONAL DESIGN CONSULTANT 04/12/2023 3:05 PM INSTRUCTIONAL DESIGN CONSULTANT Margot Chamorro MD LAB - CHEMISTRY ESTEPHANIE [facility] Organization Address City/State/ZIP Co de Phone Number [facility]) [address] * CYTOMEGALOVIRUS QUAL PCR (04/11/2023 2:57 PM INSTRUCTIONAL DESIGN CONSULTANT) [facility] Cytomegalovirus PCR Not Detected 04/14/2023 5:56 PM INSTRUCTIONAL DESIGN CONSULTANT [employer] ([facility]) Comment: NOT DETECTED - A negative result does not rule out the presence of PCR inhibitors in the patient specimen or assay specific nucleic acid in concentrations below the level of detection by the assay. INTERPRETIVE INFORMATION: Cytomegalovirus Detection by PCR This test was developed and its performance characteristics determined by [facility] [employer]. It has not been cleared or approved by the US Food and Drug Administration. This test was performed in a CLIA certified laboratory and is intended for clinical purposes. Performed By: [place] [address] [employer] Operator: Shawn Gilmore MD, PhD CLIA Number: [id number] Cytomegalovirus Source CSF 04/14/2023 5:56 PM INSTRUCTIONAL DESIGN CONSULTANT [facility] ([facility]) Cerebral spinal fluid CEREBROSPINAL FLUID SPECIMEN / Unknown Collection / Unknown 04/11/2023 2:57 PM INSTRUCTIONAL DESIGN CONSULTANT 04/11/2023 4:47 PM INSTRUCTIONAL DESIGN CONSULTANT Margot Chamorro MD LAB - BODY FLUID ORD ERABLES [facility]) [address] [place] [address] * TRIGLYCERIDES BLOOD (04/11/2023 12:20 AM INSTRUCTIONAL DESIGN CONSULTANT) Triglycerides 135 <150 mg/dL 04/11/2023 12:58 AM INSTRUCTIONAL DESIGN CONSULTANT [facility] Comment: ATP III Classification of Triglycerides: <150 mg/dL: Normal 150 - 199 mg/dL: Borderline High 200 - 400 mg/dL: High >500 mg/dL: Very High Blood BLOOD SPECIMEN / Unknown Venipuncture / Unknown 04/11/2023 12:20 AM INSTRUCTIONAL DESIGN CONSULTANT 04/11/2023 12:30 AM INSTRUCTIONAL DESIGN CONSULTANT Osmel Crews MD LAB - CHEMISTRY ORDE FIORELLA [facility] [address] [place] [address], [place] [phone] * ECHO COMPLETE W CONTRAST W BUBBLE STUDY (04/10/2023 4:22 PM INSTRUCTIONAL DESIGN CONSULTANT) BSA 1.7781063 m2 SSM CV FUJ I PACS LV biplane EF 65 54 - 74 % SSM CV FUJI PACS LV A2C EF 72 52 - 76 % SSM CV FUJ I PACS LV A4C EF 53 46 - 78 % SSM CV FUJ I PACS LV stroke vol BP 57.3 mL SSM CV FUJI PACS LV stroke vol BP index 29.3 mL/m2 SSM CV FUJI PACS LVOT stroke vol 69.84 mL SSM CV FUJI PACS LVOT stroke vol index 35.76 mL/m2 SSM CV FUJI PACS LV stroke vol 2D teich 63.19 ml SSM CV FUJI PACS LV Stroke Index 2D Teich 32.35 mL/m2 SSM CV FUJI PACS LV stroke vol index A4C MOD 43.821 ml/m2 SSM CV FUJI PACS LVIDd 4.91 3.8 - 5.2 cm SSM CV FUJI PACS LVIDs 3.48 2.2 - 3.5 cm SSM CV FUJI PACS IVSd 2D 0.985 0.6 - 0.9 cm SSM CV FUJI PACS LVPWd 0.85 0.6 - 0.9 cm SSM CV FUJI PACS Fractional Shortening 2D 29 28 - 44 % SSM CV FUJI PACS LV ESV BP 31.133 14 - 42 mL SSM CV FUJI PACS LV ESV index BP 15.9 8 - 24 mL/m2 SSM CV FUJI PACS LV ESV A2C 38.455 10 - 54 mL SSM CV FUJI PACS LV ESV index A2C 19.69 6 - 30 mL/m2 SSM CV FUJI PACS LV EDV BP 88.443 46 - 106 mL SSM CV FUJI PACS LV ESV A4C 24.962 12 - 60 mL SSM CV FUJI PACS LV ESV index A4C 12.78 7 - 35 mL/m2 SSM CV FUJI PACS LV EDV index BP 45.3 29 - 61 mL/m2 SSM CV FUJI PACS LV EDV A2C 88.257 41 - 133 mL SSM CV FUJI PACS LV EDV index A2C 45.18 26 - 74 mL/m2 SSM CV FUJI PACS LV EDV A4C 82.276 mL SSM CV FU JI PACS LV ESV 2D 50.301 14 - 42 mL SSM CV FUJI PACS LV EDV index A4C 42.12 30 - 82 mL/m2 SSM CV FUJI PACS LV ESV index 2D 25.75 8 - 24 mL/m2 SSM CV FUJI PACS LV EDV 2D 113.491 46 - 106 mL SSM CV FUJI PACS LV EDV index 2D 58.10 29 - 61 mL/m2 SSM CV FUJI PACS LVOT diam 2.1 cm SSM CV FUJ I PACS LVOT area 3.30 cm2 SSM CV FUJ I PACS LV RWT 0.347 SSM CV FUJ I PACS LV Gaxiola A2C 7.944 cm SSM CV F UJI PACS LV [place] A4C 7.354 cm SSM CV F UJI PACS IVS/LVPW 1.155 SSM CV FUJ I PACS LV mass 2D 170.49612 [id number] 66 - 150 g SSM CV FUJI PACS LV mass index 2D 87.23 44 - 88 g/m2 SSM CV FUJI PACS MV E pk feliciano 77.722 cm/s SSM CV F UJI PACS MV avg E/e' ratio 6.74 SS M CV FUJI PACS MV A pk feliciano 65.352 cm/s SSM CV F UJI PACS MV E A ratio 1.19 SSM CV FUJI PACS MV E' lateral feliciano 13.3 cm/s SS M CV FUJI PACS MV E' septal feliciano 10.174 cm/s SSM CV FUJI PACS MV E/e' septal 7.639 SSM C V FUJI PACS MV E/e' lateral 5.844 SSM CV FUJI PACS TR pk feliciano 231.4 cm/s SSM CV FUJ I PACS LVOT pk feliciano 1.11 m/s SSM CV F UJI PACS LVOT mn feliciano 0.83 m/s SSM CV F UJI PACS LVOT mn grad 3.0 mmHg SSM CV FUJI PACS LVOT Cardiac Output 6.117 l/min SSM CV FUJI PACS LVOT Cardiac Index 3.13 l/min/m2 SSM CV FUJI PACS RV-gaxiola basal diam 3.0 2.5 - 4.1 cm SSM CV FUJI PACS RV-gaxiola longitudinal diam 7.4 5.9 - 8.3 cm SSM CV FUJI PACS RVIDd 3.0 cm SSM CV FUJ I PACS RVOT VTI 13.264 cm SSM CV FUJ I PACS TV S' feliciano 14.476 cm/s SSM CV FUJ I PACS RVOT pk feliciano 0.69 m/s SSM CV F UJI PACS AV mn grad 3 mmHg SSM CV FU JI PACS AV pk grad 6 mmHg SSM CV FU JI PACS AV mn feliciano 0.85 m/s SSM CV FUJ I PACS AV pk feliciano 1.26 m/s SSM CV FUJ I PACS AV VTI 23.257 cm SSM CV FUJ I PACS LVOT pk grad 4.916 mmHg SSM CV FUJI PACS LVOT VTI 21.177 cm SSM CV FUJ I PACS AV area cont VTI 3.0 cm2 SSM CV FUJI PACS AV area pk feliciano 2.9 cm2 SSM C V FUJI PACS AV Doppler feliciano index pk feliciano 0.88 SSM CV FUJI PACS Dimensionless Index 0.911 SSM CV FUJI PACS TR VTI 59.4 cm SSM CV FUJ I PACS TR pk grad 21 mmHg SSM CV FU JI PACS RVOT mn grad 1 mmHg SSM CV FUJI PACS RVOT pk grad 2 mmHg SSM CV FUJI PACS PV mn grad 2 mmHg SSM CV FU JI PACS PV pk feliciano 99.299 cm/s SSM CV FUJ I PACS PV pk grad 4 mmHg SSM CV FU JI PACS PV VTI 17.533 cm SSM CV FUJ I PACS PV mn feliciano 69.016 cm/s SSM CV FUJ I PACS [id number] 6.638 cm SSM CV FUJ I PACS [id number] 6.489 cm SSM CV FUJ I PACS LVIDs index 1.78 1.3 - 2.1 cm/m2 SSM CV FUJI PACS LV LVIDd index 2.52 2.3 - 3.1 cm/m2 SSM CV FUJI PACS Sinus of Valsalva 3.48 cm SS M CV FUJI PACS Sinus of valsalva index 1.78 cm/m2 SSM CV FUJI PACS RVSP 29.0 mmHg SSM CV FUJ I PACS RAP 8.0 mmHg SSM CV FUJ I PACS Anatomical Region Laterality Modality Ultrasound Narrative 04/10/2023 4:54 PM INSTRUCTIONAL DESIGN CONSULTANT Left Ventricle: Left ventricle size is normal. Normal wall thickness. Normal systolic function. EF by 2D Courtney biplane is 65%. Normal wall motion. Normal diastolic function. Right Ventricle: Right ventricle size is normal. Normal systolic function. Left Atrium: No right to left intracardiac or extracardiac shunt present. Tricuspid Valve: Mild regurgitation. The pulmonary artery systolic pressure is normal (under 35 mmHg). Estimated RVSP is 29.0 mmHg. Left Ventricle Left ventricle size is normal. Normal wall thickness. Normal systolic function. EF by 2D Courtney biplane is 65%. Normal wall motion. Normal diastolic function. Right Ventricle Right ventricle size is normal. Normal systolic function. Left Atrium Left atrium size is normal. No right to left intracardiac or extracardiac shunt present. Right Atrium Right atrium size is normal. IVC/SVC IVC diameter is greater than 21 mm and decreases greater than 50% during inspiration; therefore the estimated right atrial pressure is intermediate (~8 mmHg). Mitral Valve Valve structure is normal. Trace regurgitation. No stenosis. Tricuspid Valve Valve structure is normal. No restricted motion. Mild regurgitation. The pulmonary artery systolic pressure is normal (under 35 mmHg). Estimated RVSP is 29.0 mmHg. No stenosis. Aortic Valve Valve structure is trileaflet. No restricted motion. No regurgitation. No stenosis. AV mean gradient is 3 mmHg. AV peak velocity is 1.26 m/s. AV area by continuity VTI is 3.0 cm2. Pulmonic Valve Not well visualized, but appears grossly normal. Trace regurgitation. No stenosis. Ascending Aorta Normal sized sinus of Valsalva (aortic root) and ascending aorta. Sinus of Valsalva is 3.48 cm. Sinus of Valsalva indexed to BSA is 1.78 cm/m2. Pericardium No pericardial effusion. Study Details Study quality was good. A complete 2D, color Doppler, spectral Doppler and M- mode echocardiogram was performed. The apical, parasternal, subcostal and suprasternal views were obtained. Definity and saline ultrasound enhancing agent used. Patient exhibited sinus rhythm. Procedure Note Emely Rivera MD - 04/10/2023 Left Ventricle: Left ventricle size is normal. Normal wall thickness.Normal systolic function. EF by 2D Courtney biplane is 65%. Normal wallmotion. Normal diastolic function. Right Ventricle: Right ventricle size is normal. Normal systolicfunction. Left Atrium: No right to left intracardiac or extracardiac shuntpresent. Tricuspid Valve: Mild regurgitation. The pulmonary artery systolicpressure is normal (under 35 mmHg). Estimated RVSP is 29.0 mmHg. Osmel Crews MD ECHO CUPID * (ABNORMAL) OSMOLALITY BLOOD (04/10/2023 8:53 AM INSTRUCTIONAL DESIGN CONSULTANT) Only the most recent of8 resultswithin the time period is included. Osmolality 273(L) 275 - 295 mOsm/kg 04/10/2023 9:43 AM [facility] Blood BLOOD SPECIMEN / Unknown Venipuncture / Unknown 04/10/2023 8:53 AM INSTRUCTIONAL DESIGN CONSULTANT 04/10/2023 9:11 AM INSTRUCTIONAL DESIGN CONSULTANT Osmel Crews MD LAB - CHEMISTRY ESTEPHANIE [facility] Organization Address City/State/ZIP Co de Phone Number [facility] [address] [place] [phone], [facility] [phone] * HEMOGLOBIN A1C (04/09/2023 8:32 PM INSTRUCTIONAL DESIGN CONSULTANT) Only the most recent of2 resultswithin the time period is included. Hemoglobin A1c 5.5 <=5.6 % 04/10/2023 10:28 AM [facility] Estimated Average Glucose 111 mg/dL 04/10/2023 10:28 AM [facility] Comment: HbA1c Interpretation: Normal : < 5.7% Pre-diabetes: 5.7-6.4% Diabetes: Equal to or greater than 6.5% Test results diagnostic of diabetes should be repeated for confirmation. Treatment target values recommended by ADA and other clinical organizations should be used to evaluate metabolic control in patients. Reference: [place] [employer], Standards of Care in Diabetes -2020 In patients 70 years and older consider HbA1c target range of 7.0-7.5% (Reference: Justin Chan et al. JAMDA. 2012) The [place] assay for the measurement of HbA1c is a National Glycohemoglobin Standardization Program (NGSP) certified method. Blood BLOOD SPECIMEN / Unknown Venipuncture / Unknown 04/09/2023 8:32 PM INSTRUCTIONAL DESIGN CONSULTANT 04/09/2023 8:41 PM INSTRUCTIONAL DESIGN CONSULTANT Osmel Crews MD LAB - CHEMISTRY ESTEPHANIE [facility]OS [facility] Organization Address City/State/ZIP Co de Phone Number [facility] [address] [address], [facility] [phone] * CT HEAD WO CONTRAST (04/09/2023 8:15 AM INSTRUCTIONAL DESIGN CONSULTANT) Only the most recent of2 resultswithin the time period is included. Anatomical Region Laterality Modality Head Computed Tomogra phy 04/09/2023 8:20 AM INSTRUCTIONAL DESIGN CONSULTANT Impressions 04/09/2023 11:04 AM INSTRUCTIONAL DESIGN CONSULTANT IMPRESSION: 1.Confluent hypoattenuation prominently involving predominantly subcortical white matter of left temporal lobe with extension as delineated above with relative sparing of the cortex, unchanged compared to prior study. Persistent locoregional mass effect and left to right midline shift measuring 7 mm, stable. No interval change in the effacement of the left ambient cistern. No evidence of tonsillar herniation. Report dictated by Eduardo Segura DO (university president). These findings were discussed with the patient's care provider, Dr. Kasper by Dr. Eduardo Segura, DOdiscussed with Veronique SÁNCHEZ) via telephone at 10:42 AM on 04/09/2023 with readback comprehension and verification. I, Veronique Ambrosio MD have personally reviewed and interpreted this examination/study. > Interpreting Provider: Veronique Ambrosio MD on 04/09/2023 11:04 AM Narrative 04/09/2023 11:04 AM INSTRUCTIONAL DESIGN CONSULTANT CT HEAD WO CONTRAST DATE: 04/09/2023 8:21 AM EXAMINATION: Computed tomography (CT) of the head without contrast HISTORY: G93.5: Brain herniation (CMS/HCC) TECHNIQUE: CT of the head was performed without contrast according to standard protocol. COMPARISON: CT head dated 04/09/2023 FINDINGS: Hypoattenuation of the left temporal lobe and insula subcortical white matter, with extension into the posterior limb of the left internal capsule, left thalamus again noted. There is also extension of edema superiorly into the left parietal lobe. Effacement of the involved left cerebral sulci, most prominent in the temporal lobe loading effacement of the left sylvian fissure. Partial effacement of the left lateral and third ventricles, most apparent in the left lateral ventricular trigone and temporal horns. Left to right midline shift measuring 7 mm at the septum pellucidum (series 6, image 36), previously 7 mm when measured in a similar fashion on the prior examination (series 6, image 34). Persistent effacement of the left ambient cistern (series 2, image 14). No evidence to suggest hemorrhagic conversion. Chronic encephalomalacia of the right medial temporal lobe again noted. No acute intracranial hemorrhage or extra-axial fluid collections are identified. The kim-white matter differentiation otherwise appears normal. No acute calvarial fracture is identified. Right cataract extraction. The paranasal sinuses are clear. The mastoid air cells are clear. No soft tissue abnormality is identified. Procedure Note Veronique Ambrosio MD - 04/09/2023 CT HEAD WO CONTRAST DATE: 04/09/2023 8:21 AM EXAMINATION: Computed tomography (CT) of the head without contrast HISTORY: G93.5: Brain herniation (CMS/HCC) TECHNIQUE: CT of the head was performed without contrast according to standard protocol. COMPARISON: CT head dated 04/09/2023 FINDINGS: Hypoattenuation of the left temporal lobe and insula subcortical white matter, with extension into the posterior limb of the left internal capsule, left thalamus again noted. There is also extension of edema superiorly into the left parietal lobe. Effacement of the involved left cerebral sulci, most prominent in the temporal lobe loading effacementof the left sylvian fissure. Partial effacement of the left lateral andthird ventricles, most apparent in the left lateral ventricular trigone and temporal horns. Left to right midline shift measuring 7 mm at the septum pellucidum (series 6, image 36), previously 7 mm when measured in asimilar fashion on the prior examination (series 6, image 34). Persistent effacement of the left ambient cistern (series 2, image 14). No evidenceto suggest hemorrhagic conversion. Chronic encephalomalacia of the right medial temporal lobe again noted. No acute intracranial hemorrhage or extra-axial fluid collections are identified. The kim-white matter differentiation otherwise appearsnormal. No acute calvarial fracture is identified. Right cataract extraction.The paranasal sinuses are clear. The mastoid air cells are clear. No soft tissue abnormality is identified. IMPRESSION: 1.Confluent hypoattenuation prominently involving predominantlysubcortical white matter of left temporal lobe with extension as delineated abovewith relative sparing of the cortex, unchanged compared to prior study. Persistent locoregional mass effect and left to right midline shift measuring 7 mm, stable. No interval change in the effacement of the left ambient cistern. No evidence of tonsillar herniation. Report dictated by Eduardo Segura DO (university president). These findings were discussed with the patient's care provider, Dr. Majo Sweet. Eduardo Segura, DOdiscussed with Veronique SÁNCHEZ) via telephone at 10:42 AM on 04/09/2023 with readback comprehension and verification. I, Veronique Ambrosio MD have personally reviewed and interpreted this examination/study. > Interpreting Provider: Veronique Ambrosio MD on 04/09/2023 11:04 AM Aniket Fong MD CT ORDERABLES * (ABNORMAL) TROPONIN-I HIGH SENSITIVE REFLEX 1HOUR (04/09/2023 6:39 AM INSTRUCTIONAL DESIGN CONSULTANT) Troponin I High Sensitive 33(H) <=14 ng/L 04/09/2023 7:29 AM INSTRUCTIONAL DESIGN CONSULTANT [facility] Delta Troponin I HS 04/09/2023 7:29 AM [facility] Comment:Delta value intentio iraj not calculated. Baseline to 1 hour specimen collection interval exceeded. Blood BLOOD SPECIMEN / Unknown Venipuncture / Unknown 04/09/2023 6:39 AM INSTRUCTIONAL DESIGN CONSULTANT 04/09/2023 7:07 AM INSTRUCTIONAL DESIGN CONSULTANT Osmel Crews MD LAB - CHEMISTRY ESTEPHANIE BARROS [facility] Organization Address City/State/ZIP Co de Phone Number [facility] [address] [place] [id number], [facility] [phone] * (ABNORMAL) TROPONIN-I HIGH SENSITIVE BASELINE + 1HR (04/09/2023 4:24 AM INSTRUCTIONAL DESIGN CONSULTANT) [facility] Troponin I High Sensitive 34(H) <=14 ng/L 04/09/2023 5:33 AM [facility] Blood BLOOD SPECIMEN / Unknown Venipuncture / Unknown 04/09/2023 4:24 AM INSTRUCTIONAL DESIGN CONSULTANT 04/09/2023 4:44 AM INSTRUCTIONAL DESIGN CONSULTANT Osmel Crews MD LAB - CHEMISTRY ESTEPHANIE BARROS [address] [address], [facility] [phone] * (ABNORMAL) SODIUM BLOOD (04/09/2023 4:24 AM INSTRUCTIONAL DESIGN CONSULTANT) [facility] Sodium 130(L) 136 - 145 mmol/L 04/09/2023 5:16 AM [facility] Blood BLOOD SPECIMEN / Unknown Venipuncture / Unknown 04/09/2023 4:24 AM INSTRUCTIONAL DESIGN CONSULTANT 04/09/2023 4:44 AM INSTRUCTIONAL DESIGN CONSULTANT Osmel Crews MD LAB - CHEMISTRY ESTEPHANIE BARROS [address] [address], [facility] [phone] * (ABNORMAL) LIPID PROFILE (04/09/2023 4:24 AM INSTRUCTIONAL DESIGN CONSULTANT) [facility] Cholesterol Total 174 <200 mg/dL 04/09/2023 5:36 AM [facility] HDL 51 >40 mg/dL 04/09/2023 5:36 AM [facility] Comment: ATP III Classification of HDL Cholesterol: <40 mg/dL: Considered a major risk factor. >60 mg/dL: Considered a negative risk factor. LDL Calculated 111(H) <100 mg/dL 04/09/2023 5:36 AM [facility] Comment: ATP III Classification of LDL Cholesterol: <100 mg/dL: Optimal 100 - 129 mg/dL: Near Optimal/Above Optimal 130 - 159 mg/dL: Borderline High 160 - 189 mg/dL: High >190 mg/dL: Very High Triglycerides 59 <150 mg/dL 04/09/2023 5:36 AM [facility] Comment: ATP III Classification of Triglycerides: <150 mg/dL: Normal 150 - 199 mg/dL: Borderline High 200 - 400 mg/dL: High >500 mg/dL: Very High Blood BLOOD SPECIMEN / Unknown Venipuncture / Unknown 04/09/2023 4:24 AM INSTRUCTIONAL DESIGN CONSULTANT 04/09/2023 4:56 AM INSTRUCTIONAL DESIGN CONSULTANT Osmel Crews MD LAB - CHEMISTRY ORDE RABLES Performing Organization Address [facility]/ZIP Co de Phone Number [address] [address], [facility] [phone] * PTT [facility] (04/09/2023 3:03 AM [facility]) APTT 29.0 23.0 - 38.4 Seconds 04/09/2023 3:46 AM [facility] Comment:Suggested therapeuti c range for full dose I.V. unfractionated heparin therapy for venous thromboembolism is 71 to 109 seconds. Blood BLOOD SPECIMEN / Unknown Venipuncture / Unknown 04/09/2023 3:03 AM INSTRUCTIONAL DESIGN CONSULTANT 04/09/2023 3:25 AM INSTRUCTIONAL DESIGN CONSULTANT Osmel Crews MD LAB - COAGULATION OR DERABLES Performing Organization Address [facility]/ZIP Co de Phone Number [address] [address], [place] [phone] * PT-INR [facility] (04/09/2023 3:03 AM INSTRUCTIONAL DESIGN CONSULTANT) PT 13.8 12.1 - 14.8 Seconds 04/09/2023 3:46 AM [facility] INR 1.1 See Comment 04/09/2023 3:46 AM [facility] Comment:The suggested therap eutic range for standard coumadin (warfarin) therapy is an INR of 2.0-3.0. For high-risk patients (Mechanical Mitral Valve Prosthesis, etc.), the suggested prophylactic therapeutic range is an INR of 2.5-3.5. Blood BLOOD SPECIMEN / Unknown Venipuncture / Unknown 04/09/2023 3:03 AM INSTRUCTIONAL DESIGN CONSULTANT 04/09/2023 3:25 AM INSTRUCTIONAL DESIGN CONSULTANT Osmel Crews MD LAB - COAGULATION OR DERABLES Performing Organization Address [facility]/ZIP Co de Phone Number [address] [address], [facility] [phone] * SODIUM URINE RANDOM (04/09/2023 3:03 AM INSTRUCTIONAL DESIGN CONSULTANT) Sodium Urine 76 Not Established mmol/L 04/09/2023 3:33 AM INSTRUCTIONAL DESIGN CONSULTANT [facility] Urine URINE SPECIMEN OBTAINED BY CLEAN CATCH PROCEDURE / Unknown Collection / Unknown 04/09/2023 3:03 AM INSTRUCTIONAL DESIGN CONSULTANT 04/09/2023 3:16 AM INSTRUCTIONAL DESIGN CONSULTANT Osmel Crews MD LAB - URINE CHEMISTR Y ORDERABLES Performing Organization Address [facility] Co de Phone Number [address] [address], [facility] [phone] * OSMOLALITY URINE (04/09/2023 3:03 AM INSTRUCTIONAL DESIGN CONSULTANT) Osmolality Urine 590 50 - 1,200 mOsm/kg 04/09/2023 3:50 AM INSTRUCTIONAL DESIGN CONSULTANT [facility] Urine URINE SPECIMEN OBTAINED BY CLEAN CATCH PROCEDURE / Unknown Collection / Unknown 04/09/2023 3:03 AM INSTRUCTIONAL DESIGN CONSULTANT 04/09/2023 3:16 AM INSTRUCTIONAL DESIGN CONSULTANT Osmel Crews MD LAB - URINE CHEMISTR Y ORDERABLES Performing Organization Address [facility] Co de Phone Number [address] [address], [facility] [phone] * CT ANGIO BRAIN AND NECK (04/09/2023 2:42 AM INSTRUCTIONAL DESIGN CONSULTANT) Anatomical Region Laterality Modality Head Computed Tomogra phy 04/09/2023 2:51 AM INSTRUCTIONAL DESIGN CONSULTANT Impressions 04/09/2023 11:22 AM INSTRUCTIONAL DESIGN CONSULTANT IMPRESSION: 1.No large arterial occlusions or significant stenoses identified in the head or neck. Mild atherosclerosis in the bilateral carotid bulbs without focal stenosis. Otherwise no significant atherosclerosis noted.. > Dictated by Julián Durant DO (university president). I, Veronique Ambrosio MD have personally reviewed and interpreted this examination/study. > Interpreting Provider: Veronique Ambrosio MD on 04/09/2023 11:22 AM Narrative 04/09/2023 11:22 AM INSTRUCTIONAL DESIGN CONSULTANT PROCEDURE: CT ANGIO BRAIN AND NECK, DATE/TIME OF EXAM: 04/09/2023 2:43 AM, LOCATION [facility] INDICATION: I63.9: Cerebrovascular accident (CVA), unspecified mechanism (CMS/HCC) ADDITIONAL CLINICAL INFORMATION: Ordering Provider Reason For Exam: reassessment TECHNIQUE: CT angiography of the head and neck was obtained after the uneventful administration of 75 mL Isovue 370 intravenous contrast. Three dimensional postprocessing was performed by the technologist and sent to the workstation for review. COMPARISON: CT head from 04/09/2023 2:05 AM FINDINGS: Non-angiographic findings: Please refer to the separately dictated CT head for the nonangiographic findings of the head. Subtle enhancing lesions cannot be excluded on this study. No soft tissue abnormalities are identified in the neck. Alignment of the visualized cervical spine is maintained. Mild degenerative changes are seen. Partially visualized endotracheal tube and enteric tube are noted, with secretions in the nasopharynx and oropharynx. Endotracheal tube terminates in the trachea just above the level of tara. There are focal areas of air trapping within the visualized lungs with apparent focal emphysematous-like change within these areas of air trapping. No aggressive osseous lesions noted. Angiographic findings: Evaluation of carotid stenosis by atherosclerotic changes is based on NASCET criteria. The visible aortic arch appears normal without significant atherosclerosis.. The configuration of the brachiocephalic vessels is typical. The innominate artery and both subclavian arteries appear normal. There is mild atherosclerotic disease of the right carotid bifurcation and origin of the right internal carotid artery without focal stenosis. The right common and internal carotid arteries otherwise appear normal. There is mild atherosclerotic disease of the left carotid bifurcation and origin of the left internal carotid artery without focal stenosis. The left common and internal carotid arteries otherwise appear normal. The cervical vertebral arteries appear normal. The distal internal carotid arteries appear patent without significant atherosclerosis. The anterior and middle cerebral arteries appear patent. Visualized portions of the distal branches of the left MCA also appear patent. The distal vertebral arteries appear patent without significant atherosclerosis.. The basilar artery and posterior cerebral arteries appear normal with origin of both posterior cerebral arteries. No aneurysms, vascular occlusions, or intracranial stenoses are identified. Procedure Note Veronique Ambrosio MD - 04/09/2023 PROCEDURE: CT ANGIO BRAIN AND NECK, DATE/TIME OF EXAM: 04/09/2023 2:43AM, LOCATION [facility] INDICATION: I63.9: Cerebrovascular accident (CVA), unspecified mechanism (CMS/HCC) ADDITIONAL CLINICAL INFORMATION: Ordering Provider Reason For Exam: reassessment TECHNIQUE: CT angiography of the head and neck was obtained after the uneventful administration of 75 mL Isovue 370 intravenous contrast.Three dimensional postprocessing was performed by the technologist and sent to the workstation for review. COMPARISON: CT head from 04/09/2023 2:05 AM FINDINGS: Non-angiographic findings: Please refer to the separately dictated CT head for the nonangiographic findings of the head. Subtle enhancing lesions cannot be excluded onthis study. No soft tissue abnormalities are identified in the neck. Alignment ofthe visualized cervical spine is maintained. Mild degenerative changes are seen. Partially visualized endotracheal tube and enteric tube are noted, with secretions in the nasopharynx and oropharynx. Endotracheal tube terminates in the trachea just above the level of tara. There arefocal areas of air trapping within the visualized lungs with apparent focal emphysematous-like change within these areas of air trapping. Noaggressive osseous lesions noted. Angiographic findings: Evaluation of carotid stenosis by atherosclerotic changes is based on NASCET criteria. The visible aortic arch appears normal without significant atherosclerosis.. The configuration of the brachiocephalic vessels is typical. The innominate artery and both subclavian arteries appearnormal. There is mild atherosclerotic disease of the right carotid bifurcationand origin of the right internal carotid artery without focal stenosis. The right common and internal carotid arteries otherwise appear normal.There is mild atherosclerotic disease of the left carotid bifurcation andorigin of the left internal carotid artery without focal stenosis. The leftcommon and internal carotid arteries otherwise appear normal. The cervical vertebral arteries appear normal. The distal internal carotid arteries appear patent without significant atherosclerosis. The anterior and middle cerebral arteries appearpatent. Visualized portions of the distal branches of the left MCA also appear patent. The distal vertebral arteries appear patent without significant atherosclerosis.. The basilar artery and posterior cerebral arteriesappear normal with origin of both posterior cerebral arteries. Noaneurysms, vascular occlusions, or intracranial stenoses are identified. IMPRESSION: 1.No large arterial occlusions or significant stenoses identified in the head or neck. Mild atherosclerosis in the bilateral carotid bulbswithout focal stenosis. Otherwise no significant atherosclerosis noted.. > Dictated by Julián Durant DO (university president). I, Veronique Ambrosio MD have personally reviewed and interpreted this examination/study. > Interpreting Provider: Veronique Ambrosio MD on 04/09/2023 11:22 AM Osmel Crews MD CT ORDERABLES Care Teams A/C Tech Relationship Specialty Start Date End Date A, Unknown Practice [address] [place] [address] PCP - General 04/06/23
--- OUTSIDE RECORDS SUMMARY | 2024-07-29 16:14 | XMS_ITS | Encounter Summary ---
Author Organization [facility] Address [address] [place] [address] Phone Care Team Providers Care Cutter In Name Role Phone Alison Perez MD Primary Care Provider [phone] Zenon Alexander MD PhD Unavailable [phone] Terrence Avalos MD Unavailable [phone] Encounter Details Date Type Department Care Team (Late st Contact Info) Description 07/18/[address] [place] [address] Samantha Morris Social History Tobacco Use Types Packs/Day Years Used Date Smoking Tobacco: Former Passive Smoke Exposure: Never Smokeless Tobacco: Former Quit: 1994 Alcohol Use Standard Drinks/Week Comments Yes 0 (1 standard drink = 0.6 oz pur e alcohol) Social Connection and Isolat ion Panel [NHANES] Answer Date Recorded In a typical week, how many times do you talk on the phone with family, friends, or neighbors? More than three times a week 08/31/2022 How often do you get togethe r with friends or relatives? More than three times a week 08/31/2022 How often do you attend chur or gnosticism services? More than 4 times per year 08/31/2022 Do you belong to any clubs o r organizations such as religious groups, unions, fraternal or athletic groups, or school groups? No 08/31/2022 How often do you attend meet ings of the clubs or organizations you belong to? Never 08/31/2022 Are you , , di vorced, , never , or living with a partner? 08/31/2022 AUDIT-C Answer Date Recorded Q1: How often do you have a drink containing alcohol? Never 08/01/2022 Q2: How many drinks containi ng alcohol do you have on a typical day when you are drinking? Patient does not drink Q3: How often do you have si x or more drinks on one occasion? Never 08/01/2022 Overall Financial Resource Strain (CARDIA) Answe r Date Recorded How hard is it for you to pa y for the very basics like food, housing, medical care, and heating? Not hard at all 08/31/2022 PRAPARE - Transportation Answer Date Re corded In the past 12 months, has l ack of transportation kept you from medical appointments or from getting medications? No 08/04 In the past 12 months, has l ack of transportation kept you from meetings, work, or from getting things needed for daily living? No 08/31/2022 Personal Safety Answer Date Recorded Have you ever been in or are you currently in a harmful physical or emotional relationship or is someone making you feel afraid or unsafe? Denies 11/05/2022 Comments No Sex and Gender Information Value Date Recorded Sex Assigned at Not on file Legal Sex Female 11:45 AM CORRECTION OFFICER Gender Identity Female 02/08/2019 7:49 PM CDT Sexual Orientation Straight 02/08/2019 7: 49 PM CDT documented as of this encounter Miscellaneous Notes * Telephone Encounter - Samantha Morris - 07/18/2024 8:24 AM CST We have been playing phone tag with Mrs. Yo. She apologized for missing your call. Could you please give her a call back on 07/21/24 if possible. Maximino Singh ECTION OFFICER documented in this encounter Plan of Treatment Not on file documented as of this encounter Visit Diagnoses Not on filedocumented in this encounter Care Teams Cutter In Relationship Specialty Start Date End Date Alison Perez MD [address] [place] [address] PCP - General Internal Medicine 08/31/22 Zenon Alexander MD PhD [address] [place] [address] Consulting Physician Neurology 09/18/22 Terrence Avalos MD [address] [place] [address] Consulting Physician Infectious Diseases 09/18/22 documented as of this encounter
--- OUTSIDE RECORDS SUMMARY | 2024-07-29 16:14 | XMS_ITS | Clinical Summary ---
Author Organization [facility] Address [address] [place] [address] Care Team Providers Care Box Truck Driver Name Role Phone Alison Perez MD Primary Care Provider [phone] Allergies Active Allergy Reactions Criticality Noted Date Comments Cephalosporins Hives,Other (See Comments),Rash,Swelling Medium 02/26/2019 Swelling Ciprofloxacin Other (See Comments) Low 08/01/2022 Dupilumab Other (See Comments) High 03/07/2023 Per patient Hydrocortisone Itching,Rash,Swelling Medium 06/19/2022 Linalool Itching,Rash,Hives Medium 08/01/2022 Moxifloxacin Rash,Other (See Comments) Medium 11/18/19 22 Penicillins Hives,Other (See Comments) Medium 06/04/18 90 Hives Rosuvastatin Other (See Comments) Low 08/01/2022 Sulfa Antibiotics Rash,Swelling,Other (See Comments) Medium 02/26/2019 Swelling Thimerosal Itching,Rash Medium 08/01/2022 Medications triamcinolone (KENALOG) 0.1 % ointment Apply topically 2 (two) times a day as needed for irritation or rash. 15 g 3 Active acetaminophen (TYLENOL) 325 MG tablet Take 2 tablets (650 mg total) by mouth every 4 (four) hours as needed for moderate pain or mild pain. 3 Active artificial tears 83-15 % ointment Apply to both eyes every 8 (eight) hours as needed (dry eyes). 3 Active atorvastatin (LIPITOR) 80 MG tablet Take 1 tablet (80 mg total) by mouth nightly. 30 tablet 3 Active brimonidine (ALPHAGAN) 0.2 % ophthalmic solution Administer 1 drop into both eyes in the morning and 1 drop before bedtime. 5 mL 3 Active gabapentin (NEURONTIN) 300 MG capsule Take 1 capsule (300 mg total) by mouth 3 (three) times a day. 90 capsule 3 Active guaiFENesin (ROBITUSSIN) 100 MG/5ML liquid Take 10 mL by mouth every 6 (six) hours as needed for cough. 3 Active hydrOXYzine (ATARAX) 25 MG tablet Take 1 tablet (25 mg total) by mouth every 6 (six) hours as needed for anxiety. 30 tablet 3 Active hydrOXYzine (ATARAX) 25 MG tablet Take 1 tablet (25 mg total) by mouth in the morning. 30 tablet 3 Active ipratropium-alb uterol (DUO-NEB) 0.5-2.5 mg/3 mL nebulizer Inhale 3 mL RT 3 (three) times a day. 300 mL 3 Active ketorolac (ACULAR) 0.5 % ophthalmic solution Administer 1 drop into the right eye in the morning and 1 drop at noon and 1 drop in the evening and 1 drop before bedtime. 3 mL 3 Active latanoprost (XALATAN) 0.005 % ophthalmic solution Administer 1 drop into both eyes nightly. 7.5 mL 3 Active melatonin tablet Take 2 tablets (6 mg total) by mouth nightly. 3 Active pantoprazole (PROTONIX) 40 MG EC/DR tablet Take 1 tablet (40 mg total) by mouth in the morning. 30 tablet 3 Active senna (SENOKOT) 8.6 MG tablet Take 1 tablet (8.6 mg total) by mouth in the morning. 3 Active timolol (TIMOPTIC) 0.5 % ophthalmic solution Administer 1 drop into both eyes in the morning. 5 mL 3 Active polyethylene glycol (MIRALAX) 17 g packet Take 17 g by mouth in the morning. 3 Active levETIRAcetam (KEPPRA) 1000 MG tablet Take 1 tablet (1,000 mg total) by mouth in the morning and 1 tablet (1,000 mg total) before bedtime. 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 Overview (09/07/2023): September SNOMED Diagnostic import Resolved Problems Problem Noted Date Diagnosed Date Resolved Date Cerebrovascular accident 05/07/202310/2022 Immunizations Immunization Administration Dates Next Due Pfizer SARS-CoV-2 Vaccination 05/07/2023 (Deferred: Offered and declined - Up to date) Social History Tobacco Use Types Packs/Day Years Used Date Smoking Tobacco: Never Smokeless Tobacco: Never Tobacco Cessation:Counseling Given: Not Answered Alcohol Use Standard Drinks/Week Comments Never 0 (1 standard drink = 0.6 oz pur e alcohol) Comments Unknown Sex and Gender Information Value Date Recorded Sex Assigned at Not on file Legal Sex Female 12:42 PM EST Gender Identity Not on file Sexual Orientation Not on file Last Filed Vital Signs Vital Sign Reading Time Taken Comments Blood Pressure 137/89 05/16/2023 8:34 AM CERTIFIED LEGAL SECRETARY SPECIALIST Pulse 90 05/16/2023 8:34 AM CERTIFIED LEGAL SECRETARY SPECIALIST Temperature 36.9 C (98.4 F) 05/16/2023 8:34 AM CERTIFIED LEGAL SECRETARY SPECIALIST Respiratory Rate 19 05/16/2023 8:34 AM CERTIFIED LEGAL SECRETARY SPECIALIST Oxygen Saturation 100% 05/16/2023 8:34 AM CERTIFIED LEGAL SECRETARY SPECIALIST Inhaled Oxygen Concentration - - Weight 80.3 kg (177 lb) 05/12/2023 7:32 PM CERTIFIED LEGAL SECRETARY SPECIALIST Height 177.8 cm (5' 10 ) 05/12/2023 7:32 PM CERTIFIED LEGAL SECRETARY SPECIALIST Body Mass Index 25.4 05/12/2023 7:32 PM CERTIFIED LEGAL SECRETARY SPECIALIST Plan of Treatment Health Maintenance Due Date Last Done Comments CT Colonography 1954 Colonoscopy 1954 Colorectal Cancer Screening 1954 FIT-DNA (Cologuard) 1954 FIT 1954 FOBT 1954 Sigmoidoscopy 1954 Annual Visit Topic 1955 DTaP/Tdap/Td Vaccines (1 - Tdap) 1961 Hepatitis C Screening 1972 Pneumococcal Vaccine: 65+ Ye ars (1 of 4 - PCV) 2004 HIB Vaccines Aged Out No longer eligi ble based on patient's age to complete this topic HPV Vaccines Aged Out No longer eligi ble based on patient's age to complete this topic Hepatitis A Vaccines Aged Out No long er eligible based on patient's age to complete this topic Hepatitis B Vaccines Aged Out No long er eligible based on patient's age to complete this topic IPV Vaccines Aged Out No longer eligi ble based on patient's age to complete this topic Meningococcal Vaccine Aged Out No javier светлана eligible based on patient's age to complete this topic Advance Directives * Full Resuscitation (Latest Code Status on File) Date Activated Date Inactivated Comments 05/07/2023 7:06 PM 05/16/2023 2:51 PM Question Answer Comments I have discussed this order with the patient or his/her surrogate and have received informed consent. Yes Care Teams Box Truck Driver Relationship Specialty Start Date End Date Alison Perez MD [address] [place] [address] PCP - General 05/08/23
--- OUTSIDE RECORDS SUMMARY | 2024-07-29 16:14 | XMS_ITS | Clinical Summary ---
Author Organization [facility] Address [address] [place] [address] Care Team Providers Care Accounting Manager Assistant Controller Name Role Phone A, Unknown Practice Primary Care Provider [phone] Source Comments [facility],non-owned Affiliates and Associated Physician Practices is amultiple site organization consisting of ambulatory clinics and hospital sitesin [place], [place], [place] and [place]. This disclosure is being madepursuant to the Care Everywhere program and may not contain all information available regarding this patient. Last updated 18.[facility] Allergies Active Allergy Reactions Criticality Noted Date Comments Hydrocortisone Itching,Rash,Swellin g Medium 06/19/2022 Sulfamethoxazole-Trimethopri m Rash Medium 04/09/2023 Cephalosporins Swelling,Other,Rash Medium 02/26/2019 Swelling Ciprofloxacin Dizziness Low 08/01/2022 Dupilumab Seizures High 03/07/2023 Per patient Linalool Itching,Rash,Urticar ia Medium 08/01/2022 Moxifloxacin Rash Medium 08/01/2022 Penicillins Urticaria Medium 06/04/1989 Hives Rosuvastatin Headache Low 08/01/2022 Sulfa Drugs Rash,Swelling Medium 02/26/2019 Swelling Sulfamethoxazole W-Trimethoprim Rash Medium 06/19/2022 Thimerosal Itching,Rash Medium 08/01/2022 Medications * Be aware that medications may not be up to date on this document. Alwaysverify current medications with the patient. Medication Sig Dispensed Refills Start Date End Date Status levothyroxine (Synthroid) 112 MCG tablet Take 125 mcg by mouth daily before breakfast Active acetaminophen (Tylenol) 325 MG tablet Take 2 (two) tablets by mouth every 4 hours as needed Maximum allowable Acetaminophen amount = 4 Grams (4000 mg) / 24 hours. 05/07/2023 Active gabapentin (Neurontin) 300 MG capsule Take 1 (one) capsule by mouth 3 times daily 05/07/2023 Active atorvastatin (Lipitor) 80 MG tablet Take 1 (one) tablet by mouth at bedtime 05/07/2023 Active melatonin 3 MG tablet Take 2 (two) tablets by mouth at bedtime 05/07/2023 Active brimonidine (Alphagan) 0.2 % ophthalmic solution Instill 1 (one) drop into both eyes 2 times daily 05/07/2023 Active timolol maleate (Timoptic) 0.5 % ophthalmic solution Instill 1 (one) drop into both eyes once daily 05/08/2023 Active telmisartan (Micardis) 80 MG tablet Take 1 (one) tablet by mouth once daily Active amLODIPine (Norvasc) 5 MG tablet Take 1 (one) tablet by mouth once daily Active loratadine (Claritin) 10 MG tablet Take 1 (one) tablet by mouth 2 times daily Active levETIRAcetam (Keppra) 1000 MG tablet Take 1 (one) tablet by mouth 2 times daily 180 tablet 4 08/17/2023 Active Active Problems Problem Noted Date Diagnosed Date Adverse effect of sulfonamides, subsequent encou nter 08/17/2023 08/17/2023 Allergy to penicillin 08/17/2023 08/17/2023 Graves disease 08/17/2023 08/17/2023 Overview (08/17/2023): Last Assessment & Plan: Continue Synthroid 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 08/17/2023 08/17/2023 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 08/17/2023 Essential hypertension 05/08/2023 Overview (08/17/2023): Last Assessment & Plan: Continue amlodipine and losartan Last Assessment & Plan: Continue amlodipine and losartan Unspecified contact dermatitis due to other agen ts 04/23/2023 Acute respiratory failure, u nspecified whether with hypoxia or hypercapnia 04/09/2023 Hyponatremia 04/09/2023 Brain herniation 04/09/2023 Endotracheally intubated 04/09/2023 Midline shift of brain 04/09/2023 Cerebrovascular accident (CVA), unspecified mech anism 04/09/2023 Atopic dermatitis 08/30/2022 08/17/2023 Elevated liver enzymes 08/30/2022 Hypokalemia 08/30/2022 08/17/2023 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 (FLUAD QUADRIVALENT; 65Y+) (AIIV4) 03/15/2022,03/11/2020 INFLUENZA VACCINE, HIGH-DOSE , QUADR. (FLUZONE HIGH-DOSE QUADRIVALENT; 65Y+), 0.7 ML (HD-IIV4) 03/23/2021 Zoster Hzv Vacc Recombinant Inj Im 03/11/2020 Social History Tobacco Use Types Packs/Day Years [...] Recorded Patient Health Questionnaire-2 Score 0 05/07/2023 [facility] of Occupat ional Health - Occupational Stress [...] place to sleep or slept in a group home (including now)? No 04/09/2023 Sex and Gender Information Value Date Recorded Sex Assigned at Not on file Gender Identity Not on file Sexual Orientation Not on file Last Filed Vital Signs Vital Sign Reading Time Taken Comments Blood Pressure 148/90 08/17/2023 10:53 AM CDT Pulse 66 08/17/2023 10:53 AM CDT Temperature 36.5 C (97.7 F) 05/07/2023 12:09 PM CONTAMINATED LAND CONSULTANT Respiratory Rate 16 05/06/2023 4:17 PM CONTAMINATED LAND CONSULTANT Oxygen Saturation 99% 08/17/2023 10:53 AM CDT Inhaled Oxygen Concentration 21% 05/06/2023 7 :01 AM CONTAMINATED LAND CONSULTANT Weight 76.2 kg (168 lb 1.6 oz) 08/17/2023 10:53 AM CDT Height 177.8 cm (5' 10 ) 04/24/2023 10:52 AM CONTAMINATED LAND CONSULTANT Body Mass Index 24.12 04/24/2023 10:52 AM CONTAMINATED LAND CONSULTANT Plan of Treatment Health Maintenance Due Date Last Done Comments BONE DENSITY TESTING 1954 COLOGUARD (AGES 45-75) - COLON CA SCREENING 1954 COLON MONITORING 1954 COLONOSCOPY - COLON CA SCREENING 1954 CT COLONOGRAPHY - COLON CA SCREENING 1954 Colorectal Cancer Screening 1954 FIT - COLON CA SCREENING 1954 FLEX SIG - COLON CA SCREENING 1954 MAMMOGRAM 1954 DTAP/TDAP/TD VACCINES (1 - Tdap) 1973 PNEUMOCOCCAL VACCINE 50+ (1 of 1 - PCV) 2004 ZOSTER VACCINE (2 of 2) 05/06/2020 03/11/2020 COVID-19 VACCINE (5 - season) 2024 03/15/2022, 03/30/2021, 09/02/2020, Additional history exists INFLUENZA VACCINE (#1) 2024 2, 03/23/2021, 03/11/2020 DEPRESSION SCREENING 06/04/2024 04/08/2023 MEDICARE AWV CALENDAR YEAR 2024 Respiratory Syncytial Virus (RSV) Vaccine Pt: or over 60 yrs (1 - 1-dose 75+ series) 2029 HEPATITIS C SCREENING Completed 04/18/2023 HEPATITIS B VACCINE Aged Out No longe r eligible based on patient's age to complete this topic HIB VACCINE Aged Out No longer eligi ble based on patient's age to complete this topic HPV VACCINE Aged Out No longer eligi ble based on patient's age to complete this topic MENINGOCOCCAL (Group B) VACCINE Aged Out No longer eligible based on patient's age to complete this topic MENINGOCOCCAL VACCINE Aged Out No javier светлана eligible based on patient's age to complete this topic Procedures Procedure Name Priority Date/Time Associated Diagnosis Comments HEPATITIS C AB SCREEN RFLX NAAT QUANT Routine 04/18/2023 2:22 PM CONTAMINATED LAND CONSULTANT from Last 3 Months or Most Recently Relevant to Health Maintenance Results * HEPATITIS C AB SCREEN RFLX NAAT QUANT (04/18/2023 2:22 PM CONTAMINATED LAND CONSULTANT) Hepatitis C Antibody Non-react denny Non-reac tive 04/18/2023 3:57 PM CONTAMINATED LAND CONSULTANT [facility] Comment:Hepatitis C Antibody screen indicates no serologic evidence of past or current infection with Hepatitis C Virus. Patients with unexplained liver disease who are immunocompromised or suspected of having acute Hepatitis C infection may benefit from Nucleic Acid Test (BRYANT) for Hepatitis C Viral RNA to confirm Hepatitis C status. Blood BLOOD SPECIMEN / Unknown Venipuncture / Unknown 04/18/2023 2:22 PM CONTAMINATED LAND CONSULTANT 04/18/2023 2:25 PM CONTAMINATED LAND CONSULTANT Margot Chamorro MD LAB - CHEMISTRY ESTEPHANIE [facility] Organization Address City/State/ZIP Co de Phone Number [facility] [address] [place] [address], [facility] [phone] from Last 3 Months or Most Recently Relevant to Health Maintenance Advance Directives * Full Code (Latest Code Status on File) Date Activated Date Inactivated Comments 05/07/2023 6:21 PM 05/16/2023 12:21 PM * Full Code Date Activated Date Inactivated Comments 04/09/2023 3:44 AM 05/07/2023 5:57 PM Care Teams Accounting Manager Assistant Controller Relationship Specialty Start Date End Date A, Unknown Practice [address] [place] [address] PCP - General 04/06/23
--- OUTSIDE RECORDS SUMMARY | 2024-07-29 16:14 | XMS_ITS | Encounter Summary ---
Author Organization [facility] Address [address] [place] [address] Care Team Providers Care Kohinoor Operator Name Role Phone A, Unknown Practice Primary Care Provider [phone] Encounter Details Date Type Department Care Team (Late st Contact Info) Description 04/10/2023 Ophth Exam [facility] - Ophthalmology [address] [place] [address] Elmo Vasquez MD [address] [place] [address] Social History Tobacco Use Types Packs/Day Years [...] and heating? Not hard at all 04/09/2023 [facility] of Occupat ional Health - Occupational Stress [...] money to buy more. Never true 04/09/20 Within the past 12 months, t he [...] place to sleep or slept in a chcf (including now)? No 04/09/2023 Sex and Gender Information Value Date Recorded Sex Assigned at Not on file Gender Identity Not on file Sexual Orientation Not on file documented as of this encounter Functional Status Functional Status Response Date of Assess ment Is person deaf or have serious hearing difficult y? No 04/09/2023 Is person blind or have serious difficulty seein g? Yes 04/09/2023 Does person have serious dif ficulty walking/climbing stairs? No 04/09/2023 Does person have difficulty dressing/bathing? No 04/09/2023 Does person have difficulty doing errands alone? Yes 04/09/2023 Cognitive Status Response Date of Assessm ent Does person have difficulty concentrating/remembering/making decisions? No 04/09/2023 documented as of this encounter Plan of Treatment Not on file documented as of this encounter Visit Diagnoses Not on filedocumented in this encounter Care Teams Kohinoor Operator Relationship Specialty Start Date End Date A, Unknown Practice [address] [place] [address] PCP - General 04/06/23 documented as of this encounter
--- OUTSIDE RECORDS SUMMARY | 2024-07-29 16:14 | XMS_ITS ---
Author Organization [facility] Address [address], [place] [address] Care Team Providers Care Food Stylist Name Role Phone Brittney Benedict Unavailable [phone] zzzzMigration, zzzzProvider Unavailable Unav ailable REASON FOR VISIT EMR-[facility] Encounters Encounter Location Date Provider Diagnosis [facility] [address] [facility], [place] [address] 03/24/2023 zzzzProvider zzzzMigration Plan Of Treatment Medication Medication Name Sig Start Date Stop Date Notes Medrol 4 MG take as directed for 6 days Oral for 6 022 03/22/2022 predniSONE 10 MG take 1 tablet (10 mg ) by oral route once daily for 7 days Oral 1 for 7 11/22/2021 11/29/2021 Progress Notes * Ely LEWISLisetteOB:[birth year] (69 yo F)Acc No.[id number]:03/24/2023 Patient: Toña QUIÑONEZ :1955 A ge:67 Y S ex:Female Address:[address] [place] [address], [address] * Refills Stop Medrol Tablet Therapy Pack, 4 MG, Oral, 1, take as directed for 6 days, 6 Stop predniSONE Tablet, 10 MG, Oral, 7, take 1 tablet (10 mg) by oral route once daily for 7 days, 1, 7 Subjective: * Chief Complaints: * E MR-Cristobal * Medical History: * Surgical History: * Hospitalization/Major Diagno stic Procedure: * Medications: Objective: * Vitals: * Physical Examination: Assessment: Plan: * Treatment: * Procedure Codes: * * Date:
--- OUTSIDE RECORDS SUMMARY | 2024-07-29 16:14 | XMS_ITS | Encounter Summary ---
Author Organization [facility] Address [address] [facility] [address] [place] [address] Phone Care Team Providers Care Charge Master Coordinator Name Role Phone Alison Perez MD Primary Care Provider [phone] Zenon Alexander MD PhD Unavailable [phone] Terrence Avalos MD Unavailable [phone] Encounter Details Date Type Department Care Team (Late st Contact Info) Description 07/29/[address] [place] [address] Sanya Farmer MD [address] [place] [address] Social History Tobacco Use Types Packs/Day Years [...] How often do you attend chur or synagogue services? More than 4 times per year 08/31/2022 Do you belong to any clubs o r organizations such as advent groups, unions, fraternal or athletic groups, or [...] on file Legal Sex Female 11:45 AM CLOTH CARRIER Gender Identity Female 02/08/2019 7:49 PM CDT Sexual Orientation Straight 02/08/2019 7: 49 PM CDT documented as of this encounter Plan of Treatment Not on file documented as of this encounter Visit Diagnoses Not on filedocumented in this encounter Care Teams Charge Master Coordinator Relationship Specialty Start Date End Date Alison Perez MD [address] [employer] [place] [address] PCP - General Internal Medicine 08/31/22 Zenon Alexander MD PhD [address] [place] [address] Consulting Physician Neurology 09/18/22 Terrence Avalos MD [address] [place] [address] Consulting Physician Infectious Diseases 09/18/22 documented as of this encounter
--- OUTSIDE RECORDS SUMMARY | 2024-07-29 16:14 | XMS_ITS ---
Author Organization [facility] Address [address] [address] [facility] [place] [address] Care Team Providers Care Line Tester Name Role Phone Brittney Benedict Unavailable [phone] zzzzMigration, zzzzProvider Unavailable Unav ailable Allergies Allergen (clinical drug ingredient) Drug/Non Drug Allergy documented on EMR Reaction Allergy Type Onset Date Status moxifloxacin Avelox Unknown Drug Allergy 11/17/2021 Act denny Medicinal cephalosporin and acting as antibacterial agent (FN) Cephalosporins Unknown Drug Allergy 11/17/2021 Active Substance with penicillin structure and antibacterial mechanism of action (substance) Penicillins Unknown Drug Allergy 11/17/2021 Active Substance with sulfonamide structure and antibacterial mechanism of action (substance) Sulfa Antibiotics Unknown Drug Allergy 11/17/2021 Active REASON FOR VISIT EMR-Cristobal Medications Medication SIG (Take, Route, Frequency, Duration) Notes Start Date End Date Status Multi-Vitamin take 1 tablet by ora l route daily for 30 days Oral 1 for 30 Active Levothyroxine Sodium 125 MCG take 1 tabl et (125 mcg) by oral route once daily for 30 days Oral 1 for 30 Active amLODIPine Besylate 10 MG take 1 tablet (10 mg) by oral route once daily for 30 days Oral 1 for 30 Active Fiber 625 mg take 1 tablet by ora l route daily Oral 1 Active Meloxicam 15 MG take 1 tablet (15 mg ) by oral route once daily for 30 days Oral 1 for 30 Active Encounters Encounter Location Date Provider Diagnosis [facility] [address] [facility] [address] [place] [address] 03/25/2023 zzzzProvider zzzzMigration Plan Of Treatment No Information Progress Notes * Ely YOneDOB:[birth year] (69 yo F)Acc No.[id number]:03/25/2023 Patient: Toña QUIÑONEZ :1955 A ge:67 Y S ex:Female Address:[address] [place], [place] [address] Subjective: * Chief Complaints: * E MR-Cristobal * Medical History: * Surgical History: T ubal ligation; [id number]; 1971-64-12vrsuk surgery; 6110-23-53Hhkfozcwsjd Iodine Thyroid; 8248-49-97Hlys surgery; 6211-79-48Jyfckii cyst removal; 2021-11-17 * Hospitalization/Major Diagno stic Procedure: * Family History: M igrated Family History: congestive heart failure , CVA (Cerebrovascular accident) , Hypertension , Lung Cancer , Rheumatoid Arthritis , Thyroid Disorder . * Social History: M igrated Social History: M igrated Social History: :: 2 Children , Exercise :: Yoga , Marital Status :: , Substance Use :: Alcohol :: Current some day :: note : Use status used: Current some dayAmount used: 4:: Quantity :: 4 , Substance Use :: Denies illicit substance abuse , Substance Use :: Tobacco :: Never. * Medications: T akingMeloxicam 15 MG Tablet take 1 tablet (15 mg) by oral route once daily for 30 days Oral 1 amLODIPine Besylate 10 MG Tablet take 1 tablet (10 mg) by oral route once daily for 30 days Oral 1 Fiber 625 mg Tablet take 1 tablet by oral route daily Oral 1 Levothyroxine Sodium 125 MCG Tablet take 1 tablet (125 mcg) by oral route once daily for 30 days Oral 1 Multi-Vitamin Tablet take 1 tablet by oral route daily for 30 days Oral 1 Taking Meloxicam 15 MG Tablet take 1 tablet (15 mg) by oral route once daily for 30 days Oral 1 Taking amLODIPine Besylate 10 MG Tablet take 1 tablet (10 mg) by oral route once daily for 30 days Oral 1 Taking Fiber 625 mg Tablet take 1 tablet by oral route daily Oral 1 Taking Levothyroxine Sodium 125 MCG Tablet take 1 tablet (125 mcg) by oral route once daily for 30 days Oral 1 Taking Multi-Vitamin Tablet take 1 tablet by oral route daily for 30 days Oral 1 * Allergies: A velox: Allergy - Onset Date 11/17/2021ephalosporins: Allergy - Onset Date 11/17/2021enicillins: Allergy - Onset Date 11/17/2021ulfa Antibiotics: Allergy - Onset Date 11/17/2021 Objective: * Vitals: * Physical Examination: Assessment: Plan: * Treatment: * Procedure Codes: * * Date:
--- OUTSIDE RECORDS SUMMARY | 2024-07-29 16:14 | XMS_ITS | Referral Summary ---
Author Organization [facility] Address [address] [place] [address] Care Team Providers Care Trial Judge Name Role Phone A, Unknown Practice Primary Care Provider [phone] Source Comments [facility],non-owned Affiliates and Associated Physician Practices is amultiple site organization consisting of ambulatory clinics and hospital sitesin [place], [place], [place] and [place]. This disclosure is being madepursuant to the Care Everywhere program and may not contain all information available regarding this patient. Last updated 18.[facility] Allergies Active Allergy Reactions Criticality Noted Date [...] Recorded Patient Health Questionnaire-2 Score 0 05/07/2023 [facility] Occupat ional Health - Occupational Stress [...] place to sleep or slept in a senior living (including now)? No 04/09/2023 Sex and Gender Information Value Date Recorded Sex Assigned at Not on file Gender Identity Not on file Sexual Orientation Not on file Last Filed Vital Signs Vital Sign Reading Time Taken Comments Blood Pressure 148/90 08/17/2023 10:53 AM CDT Pulse 66 08/17/2023 10:53 AM CDT Temperature 36.5 C (97.7 F) 05/07/2023 12:09 PM BUSINESS ACCOUNT SPECIALIST Respiratory Rate 16 05/06/2023 4:17 PM BUSINESS ACCOUNT SPECIALIST Oxygen Saturation 99% 08/17/2023 10:53 AM CDT Inhaled Oxygen Concentration 21% 05/06/2023 7 :01 AM BUSINESS ACCOUNT SPECIALIST Weight 76.2 kg (168 lb 1.6 oz) 08/17/2023 10:53 AM CDT Height 177.8 cm (5' 10 ) 04/24/2023 10:52 AM BUSINESS ACCOUNT SPECIALIST Body Mass Index 24.12 04/24/2023 10:52 AM BUSINESS ACCOUNT SPECIALIST Functional Status Functional Status Response Date of [...] person have difficulty concentrating/remembering/making decisions? No 04/09/2023 Plan of Treatment Not on file Procedures Procedure Name Priority Date/Time Associated Diagnosis Comments HEPATITIS C AB SCREEN RFLX NAAT QUANT Routine 04/18/2023 2:22 PM BUSINESS ACCOUNT SPECIALIST from Last 3 Months or Most Recently Relevant to Health Maintenance Results * HEPATITIS C AB SCREEN RFLX NAAT QUANT (04/18/2023 2:22 PM BUSINESS ACCOUNT SPECIALIST) Hepatitis C Antibody Non-react denny Non-reac tive 04/18/2023 3:57 PM BUSINESS ACCOUNT SPECIALIST [facility] Comment:Hepatitis C Antibody screen [...] Unknown Venipuncture / Unknown 04/18/2023 2:22 PM BUSINESS ACCOUNT SPECIALIST 04/18/2023 2:25 PM BUSINESS ACCOUNT SPECIALIST Margot Chamorro MD LAB - CHEMISTRY [facility]EPHANIE [facility] Organization Address City/State/ZIP Co de Phone Number [address] [address], [facility] [phone] from Last 3 Months or Most Recently Relevant to Health Maintenance Advance Directives * Full Code (Latest Code Status on File) Date Activated Date Inactivated Comments 05/07/2023 6:21 PM 05/16/2023 12:21 PM * Full Code Date Activated Date Inactivated Comments 04/09/2023 3:44 AM 05/07/2023 5:57 PM Care Teams Trial Judge Relationship Specialty Start Date End Date A, Unknown Practice [address] [place] [address] PCP - General 04/06/23
--- OUTSIDE RECORDS SUMMARY | 2024-07-29 16:14 | XMS_ITS | Clinical Summary ---
Author Organization [facility] Address [address] [place] [address] Care Team Providers Care Gas Stove Servicer Helper Name Role Phone Unavailable Primary Care Provider Unavailabl e Social History Tobacco Use Types Packs/Day Years Used Date Smoking Tobacco: Never Assessed Comments Unknown Sex and Gender Information Value Date Recorded Sex Assigned at Not on file Legal Sex Female 8:06 PM CDT Gender Identity Not on file Sexual Orientation Not on file Plan of Treatment Health Maintenance Due Date Last Done Comments Colorectal Cancer Screening Colonoscopy (10 Years) 1954 Hepatitis C 1972 DTaP, Tdap and Td Vaccines ( 1 - Tdap) 1973 Mammogram Screening 1994 Zoster Vaccines (1 of 2) 2004 Dexa Scan (General) 2019 Pneumococcal Vaccine: 65+ Ye ars (1 of 1 - PCV) 2019 COVID-19 Vaccine (2023-2 5 season) 2024 Influenza Adult (#1) 2024 RSV Immunization or 60+ Years (1 - 1-dose 75+ series) 2029 Meningococcal B Vaccine Aged Out No l onger eligible based on patient's age to complete this topic Meningococcal Vaccine Aged Out No javier светлана eligible based on patient's age to complete this topic RSV Immunizations Under 20 Months Aged Out No longer eligible based on patient's age to complete this topic
--- OUTSIDE RECORDS SUMMARY | 2024-07-29 16:14 | XMS_ITS | Patient Health Record ---
Author Organization [facility] Address [address] [place] [address] Care Team Providers Care Menhaden Vessel Pilot Name Role Phone Brittney Benedict Unavailable [phone] Reason For Referral No Information Medications Medication SIG (Take, Route, Frequency, Duration) [...] 30 days Oral 1 for 30 Active Plan Of Treatment No Information Insurance Providers Payer Name Payer Address Payer Phone Subscriber Number Group Number Insured Name Patient Relationship to Insured Coverage Start Date Coverage End Date Aetna - Choice/ OA [address] [place] [phone] [id number] Toña Yo Self - patient is the insured Medical (General) History Surgical History Surgery Date(Month/Year) Myomectomy; 2021-11-17 Knee surgery; 2021-11-17 Ovarian cyst removal; 2021-11-17 thumb surgery; 2021-11-17 Tubal ligation; 2021-11-17 Radioactive Iodine Thyroid; 2021-11-17
--- OUTSIDE RECORDS SUMMARY | 2024-07-29 16:15 | XMS_ITS | Encounter Summary ---
Author Organization [facility] Address [address] [place] [address] Phone Care Team Providers Care Resident Physician In Radiology Name Role Phone Alison Perez MD Primary Care Provider [phone] Zenon Alexander MD PhD Unavailable Terrence Avalos MD Unavailable [phone] Encounter Details Date Type Department Care Team (Latest Contact Info) Description 12/20/2022 Orders Only [facility] Scanning, Provider Social History Tobacco Use Types Packs/Day Years [...] week 08/31/2022 How often do you attend [facility] or caodaism services? More than 4 times per year 08/31/2022 Do you belong to any clubs o r organizations such as alevism groups, unions, fraternal or athletic groups, or [...] on file Legal Sex Female 11:45 AM [employer] Gender Identity Female 02/08/2019 7:49 PM CDT Sexual Orientation Straight 02/08/2019 7: 49 PM CDT documented as of this encounter Plan of Treatment Not on file documented as of this encounter Procedures Procedure Name Priority Date/Time Associated Diagnosis Comments SCAN - LABS 12/20/2022 documented in this encounter Results * SCAN - LABS (12/20/2022) us Provider Scanning Final Result documented in this encounter Visit Diagnoses Not on filedocumented in this encounter Additional Health Concerns Infection Onset Date Last Indicated Resolved Time COVID: Suspected 02/06/2023 02/06/2023 02/06/2023 3:38 PM CDT documented as of this encounter Care Teams Resident Physician In Radiology Relationship Specialty Start Date End Date Alison Perez MD [address] [place] [address] [place] [address] PCP - General Internal Medicine 08/31/22 Zenon Alexander MD PhD [address] [place] [address] Consulting Physician Neurology 09/18/22 Terrence Avalos MD [address] [place] [address] Consulting Physician Infectious Diseases 09/18/22 documented as of this encounter
--- OUTSIDE RECORDS SUMMARY | 2024-07-29 16:15 | XMS_ITS | Patient Health Record ---
Author Organization [facility] Address [address] [place] [address] Care Team Providers Care Chief Lock Operator Name Role Phone Alison Perez Primary Care Provider UnavailTommie Quezada Unavailable [phone] [facility], Provider Unavailable Unavailab le Allergies Allergen (clinical drug ingredient) Drug/Non Drug Allergy documented on EMR Reaction Allergy Type Onset Date Status Medicinal quinolone and acting as antibacterial agent (FN) FLUOROQUINOLONE (uncoded) hives Allergy Active SULFA (BACTRIM) (uncoded) hives Allergy Active Medicinal cephalosporin and acting as antibacterial agent (FN) Cephalosporins hives Drug Allergy Active Penicillin hives Drug Allergy Active Reason For Referral No Information Medications Medication SIG (Take, Route, Frequency, Duration) Notes Start Date End Date Status VANICREAM MOISTURIZING CREAM N/A NECESSARY APPLY TO EXTERNAL SURFACES OFTEN NEEDED TO FACE, HANDS, FEET OR BODY FOR DAILY USE BY THE ENTIRE FAMILY for 30 DAY(S) *Please review for potential replacement for e-prescription and drug interaction check* Active Cetirizine HCl 10 MG 1 tab(s) orally BID for 30 days Active Meloxicam 15 MG 1 tab(s) orally once a day Active amLODIPine Besylate 10 MG 1 tab(s) orally once a day Active Levothyroxine Sodium 125 MCG 1 tab(s) orally once a day Active Rhopressa 0.02 % 1 gtt in each eye once a day (in the evening) for 30 day(s) Active Brimonidine Tartrate 0.2 % 1 gtt in each affected eye 3 times a day for 30 day(s) Active CETIRIZINE 10 mg 1 tab(s) orally BID for 30 days Active LOTEPREDNOL OPHTHALMIC 0.5% 2 GTT IN EACH AFFECTED EYE 4 TIMES A DAY for 14 DAY(S) *Please review for potential replacement for e-prescription and drug interaction check* Active TIMOLOL MALEATE (EQV-TIMOPTIC) MALEATE 0.5% 1 GTT IN EACH AFFECTED EYE ONCE A DAY for 30 DAY(S) *Please review for potential replacement for e-prescription and drug interaction check* Active MELOXICAM 15 mg 1 tab(s) orally once a day Active RHOPRESSA 0.02% 1 gtt in each eye once a day (in the evening) for 30 day(s) Active AMLODIPINE 10 mg 1 tab(s) orally once a day Active BRIMONIDINE OPHTHALMIC 0.2% 1 gtt in each affected eye 3 times a day for 30 day(s) Active LEVOTHYROXINE 125 mcg (0.125 mg) 1 tab(s) orally once a day Active Immunizations Vaccine Route Administration Date Status Comme nts Influenza Unknown 03/23/2021 Administered Portal [facility] Social History Tobacco Use: Social History Observation Description Date Details (start date - stop date) Former Smoker NA - NA Smoking Smart Form: Question Answer Notes Are you a: former smoker Problems Problem Type SNOMED Code ICD Code Onset Dates Problem Status W/U Status Risk Notes Problem 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 Problem Eruption of skin (041847681) Rash and other nonspecific skin eruption (R21) Active confirmed Problem Essential hypertension (36094702) Essential (primary) hypertension (I10) Active confirmed Problem Allergy to penicillin (33449633) Allergy status to penicillin (Z88.0) Active confirmed Problem Adverse effect o f sulfonamides, subsequent encounter (T37.0X5D) Active confirmed Encounters Encounter Location Date Provider Diagnosis [facility] [address] [address] 11/17/2023 Provider [facility] Rash and other nonspecific skin eruption R21 Assessments Encounter Date Diagnosis (ICD Code) Assessment Notes Treatment Notes Treatment Clinical Notes Section Notes 11/17/2023 Rash and other nonspecific skin eruption (ICD-10 - R21) Plan Of Treatment No Information Insurance Providers Payer Name Payer Address Payer Phone Subscriber Number Group Number Insured Name Patient Relationship to Insured Coverage Start Date Coverage End Date Aetna Medicare [address] [place] [phone] [id number] Toña Yo Self - patient is the insured Medical (General) History Medical History History ICD Code Thyrotoxicosis with diffuse goiter witho ut thyrotoxic crisis or storm E05.00 Essential (primary) hypertension I10 Allergy status to penicillin Z88.0 Adverse effect of sulfonamides, initial encounter T37.0X5A Rash and other nonspecific skin eruption R21 Surgical History Surgery Date(Month/Year) myelomectomy and rt ovarian cystectomy 0 10/02/1989
--- OUTSIDE RECORDS SUMMARY | 2024-07-29 16:15 | XMS_ITS | Clinical Summary ---
Author Organization [facility] Address [address] [place] [address] Phone Care Team Providers Care Ncqa Specialist Name Role Phone Provider, Unknown Primary Care Provider Unavaila ble Social History Tobacco Use Types Packs/Day Years Used Date Smoking Tobacco: Never Assessed Comments Unknown Sex and Gender Information Value Date Recorded Sex Assigned at Not on file Legal Sex Female 11:53 PM CDT Gender Identity Not on file Sexual Orientation Not on file Plan of Treatment Health Maintenance Due Date Last Done Comments DEXA Bone Density 1955 Mammogram 1955 TdaP Immunization 1955 Colonoscopy 1999 Colorectal Cancer Screening 1999 Cologuard 2004 Immunochemical Fecal Occult Blood 2004 Pneumococcal Immunization (50+ years) (1 of 1 - PCV) 2004 Zoster Immunization (2 of 2) 05/06/2020 03/11/2020 Influenza Immunization (#1) 02/03/202403/04, 03/23/2021, 03/11/2020 SARS-COV-2 Immunization ( season) 2024 03/15/2022, 03/30/2021, 09/02/2020, Additional history exists Respiratory Syncytial Virus (RSV) Immunization (Adult) (1 - 1-dose 75+ series) 2029 Hepatitis C Virus (HCV) Screening Completed 08/31/2022 Hepatitis B Immunization Aged Out No longer eligible based on patient's age to complete this topic Meningococcal Immunization (ACWY) Aged Out No longer eligible based on patient's age to complete this topic Rotavirus Immunization Aged Out No lo nger eligible based on patient's age to complete this topic Insurance MEDICARE C AETNA MEDICARE C AETNA Care Teams Ncqa Specialist Relationship Specialty Start Date End Date Provider, Unknown UNKNOWN PCP - General 02/11/16
--- OUTSIDE RECORDS SUMMARY | 2024-07-29 16:15 | XMS_ITS | Clinical Summary ---
Author Organization [facility] Address [address] [place] [address] Care Team Providers Care Supervisor Capacitor Processing Name Role Phone Alison Perez MD Primary Care Provider [phone] Zenon Alexander MD PhD Unavailable [phone] Terrence Avalos MD Unavailable Allergies Active Allergy Reactions Criticality Noted Date Comments 1 Plus 1-F Rash,Itching Medium 06/19/2022 1+1-F Creme Swelling Medium 08/01/2022 Alcohol-Propylene Glycol Itching,Urticaria Medium 07/06 Sulfamethoxazole-Trimethopr im Rash Medium 06/19/2022 Cephalosporins Rash,Hives,Swelling Medium 02/26/2019 Swelling Ciprofloxacin Dizziness Low 08/01/2022 Dupilumab Seizures High 03/07/2023 Per patient Hydrocortisone Itching,Rash,Swelling Medium 06/19/2022 Linalool Itching,Rash,Urticar i a Medium 08/01/2022 Moxifloxacin Rash Medium 08/01/2022 Penicillins Hives Medium 06/04/1989 Hives Rosuvastatin Headache Low 08/01/2022 Sulfa (Sulfonamide Antibiotics) Rash,Swelling,Hives Medium 02/26/2019 Swelling Thimerosal Itching,Rash Medium 08/01/2022 Medications brimonidine (ALPHAGAN) 0.2 % ophthalmic solution Administer 1 drop into the right eye 2 (two) times a day Active timoloL (BETIMOL) 0.5 % ophthalmic solution Administer 1 drop into both eyes 2 (two) times a day Active telmisartan (MICARDIS) 80 mg tablet Active acetaminophen (TYLENOL) 325 mg tablet Take 2 tablets (650 mg total) by mouth every 4 (four) hours as needed Active gabapentin (NEURONTIN) 300 mg capsule Take 1 capsule (300 mg total) by mouth 3 (three) times a day Active melatonin tablet Take 2 tablets (6 mg total) by mouth nightly Active loteprednol (LOTEMAX) 0.5 % drops,gel Administer 2 drops into both eyes 4 (four) times a day Active amLODIPine (NORVASC) 5 mg tablet Take 1 tablet (5 mg total) by mouth daily Active levETIRAcetam (KEPPRA) 1,000 mg tablet 1 tablet (1,000 mg total) Active levothyroxine (SYNTHROID) 125 mcg tablet 1 tablet (125 mcg total) Active atorvastatin (LIPITOR) 80 mg tablet Take 1 tablet (80 mg total) by mouth nightly Active prednisoLONE acetate (PRED FORTE) 1 % ophthalmic suspension Active EPINEPHrine 0.3 mg/0.3 mL auto-injectio n syringe INJECT 0.3ML INTRAMUSCULARLY ONCE FOR ANAPHYLAXIS AND REPEAT IN 5 MINUTES IF NECESSARY Active loratadine (CLARITIN) 10 mg tabletIndicat ions:Seasonal allergic rhinitis due to pollen,Chroni c idiopathic urticaria TAKE 2 TABLETS BY MOUTH 2 TIMES A DAY. 360 tablet 3 Active diazePAM (VALIUM) 5 mg tabletIndicat ions:anxiety Take one tab 30 minutes prior to procedure. Repeat thirty minutes later if necessary. 2 tablet Active Additional Information Patient not taking.Reported on 07/10/2024 aspirin 81 mg enteric coated tablet Take 1 tablet (81 mg total) by mouth daily Active spironolacton e (ALDACTONE) 25 mg tablet Take 1 tablet (25 mg total) by mouth daily Active psyllium (KONSYL) powder Take by mouth Active multivitamin with minerals tablet Take 1 tablet by mouth daily Active famotidine (PEPCID) 20 mg tablet Take 1 tablet (20 mg total) by mouth 2 (two) times a day 180 tablet 3 025 2025 Active timolol (TIMOPTIC) 0.5 % ophthalmic solution INSTILL 1 DROP IN BOTH EYE TWICE A DAY 025 Active azaTHIOprine (IMURAN) 50 mg tabletIndicat ions:Urticari al vasculitis TAKE 1 AND 1/2 TABLETS BY MOUTH DAILY 135 tablet 025 Active diazePAM (VALIUM) 5 mg tabletIndicat ions:anxiety Take one tab 30 minutes prior to procedure. Repeat thirty minutes later if necessary. 2 tablet 024 2024 Discontinued(R eorder) azaTHIOprine (IMURAN) 50 mg tabletIndicat ions:Urticari al vasculitis Take 1.5 tablets (75 mg total) by mouth daily 135 tablet 024 2024 Discontinued Active Problems Problem Noted Date Diagnosed Date Vasculitis, ROAD ENGINEER ([facility]) 05/22/2024 Unspecified contact dermatitis due to other agen ts 04/23/2023 Acute respiratory failure 04/09/2023 Brain herniation ([facility]) 04/09/2023 Cerebrovascular accident (CVA) 04/09/2023 Endotracheally intubated 04/09/2023 Hyponatremia 04/09/2023 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 Seizure 08/30/2022 Hypokalemia 08/30/2022 Elevated liver enzymes 08/30/2022 Atopic dermatitis 08/30/2022 Facial cellulitis 06/06/2022 Assessment & Plan (06/06/2022 8:26 PM RAG PRODUCTION WORKER): Started on Vancomycin CBC and BMP in a.m Cyst of breast 07/07/2015 HTN (hypertension) Assessment & Plan (06/06/2022 8:27 PM RAG PRODUCTION WORKER): Continue amlodipine and losartan Graves disease Assessment & Plan (06/06/2022 8:26 PM RAG PRODUCTION WORKER): Continue Synthroid Resolved Problems Problem Noted Date Diagnosed Date Resolved Date 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 08/30/2022 Encounters Date Type Department Care Team Description 07/29/2024 Telephone [facility] [address] [place] [phone] Sanya Farmer MD 07/18/2024 Telephone [facility] [address] [place] [phone] Samantha Morris 07/15/2024 Telephone [facility] [address] [place] [phone] Sanya Farmer MD 07/14/2024 Telephone [facility] [address] [place] [phone] Sanya Farmer MD 07/10/2024 9:42 AM RAG PRODUCTION WORKER - 07/10/2024 11:59 PM RAG PRODUCTION WORKER Hospital Encounter [address] [address] 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; Urticarial vasculitis Discharge Disposition: Discharge to home or self care 07/10/2024 9:30 AM RAG PRODUCTION WORKER Lab [facility] [address] [facility] [address] [place] [address] 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 8:30 AM RAG PRODUCTION WORKER Office Visit [facility] [address] [facility] [address] [place] [address] Hardy De Santiago MD Urticarial vasculitis (Primary Dx); 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; ROAD ENGINEER vasculitis (CMS/HCC) (HCC); Abnormal brain scan 07/08/2024 10:26 AM RAG PRODUCTION WORKER - 07/08/2024 11:59 PM RAG PRODUCTION WORKER Hospital Encounter [facility] [address] [place] [address] Vas[address]itis, [address] ENGINEER (CMS/HCC) (HCC); Meningoencephalitis Discharge Disposition: Discharge to home or self care 07/08/2024 Orders Only [facility] [address] [facility] [address] [place] [address] [place] [address] Sanya Farmer MD Vasculitis, ROAD ENGINEER (CMS/HCC) (HCC) (Primary Dx); Mild cognitive impairment 07/07/2024 10:40 AM RAG PRODUCTION WORKER Office Visit [facility] [address] [place] [phone] Shailesh Rivers MD PhD Urticarial vasculitis (Primary Dx); Chronic idiopathic urticaria 06/30/2024 Orders Only [facility] [address] [facility] [address] [place] [phone] Sanya Farmer MD Anxiety disorder, unspecified type 06/17/2024 8:00 AM RAG PRODUCTION WORKER Clinical Support [facility] [address] [facility] [address] [place] [phone] Winston Yousif, PhD Cognitive changes 06/17/2024 Orders Only [facility] [address] [place] [address] [place] [phone] Sanya Farmer MD Vasculitis, ROAD ENGINEER ([facility]) (HCC) (Primary Dx); Meningoencephalitis 05/23/2024 11:00 AM RAG PRODUCTION WORKER Office Visit [facility] [address] [facility] [address] [place] [address] [place] [phone] Sanya Farmer MD Meningoencephalitis (Primary Dx); Vasculitis, ROAD ENGINEER (CMS/HCC) (HCC); Atopic dermatitis, unspecified type; Seizure (HCC) 05/20/2024 Telephone [facility] [address] [place] [address] [address] [place] [address] Hardy De Santiago MD 05/19/2024 Orders Only [facility] [address] [facility] [address] [place] [address] [place] [phone] BabHardy Ye MD 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 (Primary Dx) 05/16/2024 Orders Only [facility] [address] [place] [phone] Provider, MD Yunier from Last 3 Months Surgical History Surgery Date Site/Laterality Comments HAND SURGERY MYOMECTOMY OVARIAN CYSTECTOMY Right SECTION LUMBAR PUNCTURE WO INJECTION, DIAGNOSTIC 02/25/2024 N/A Medical History Medical History Date Comments HTN (hypertension) Graves disease Contact dermatitis Recurrent and problematic Family History Medical History Relation Name Comments Hypertension Brother Gunshot wound Father Hypertension Mother Stroke Mother Cancer Sister Lung cancer Sister Family history of lung cancer - (Added by TW Conv) Relation Name Status Comments Brother Father Mother Sister Social History Tobacco Use Types Packs/Day Years Used Date Smoking Tobacco: Former Passive Smoke Exposure: Never Smokeless Tobacco: Former Quit: 1994 Tobacco Cessation:Counseling Given: Not Answered Alcohol Use Standard Drinks/Week Comments Yes 0 [...] How often do you attend chur or congregation services? More than 4 times per year 08/31/2022 Do you belong to any clubs o r organizations such as sikh groups, unions, fraternal or athletic groups, or [...] on file Legal Sex Female 11:45 AM RAG PRODUCTION WORKER Gender Identity Female 02/08/2019 7:49 PM CDT Sexual Orientation Straight 02/08/2019 7: 49 PM CDT Obstetrics History Last Filed Vital Signs Vital Sign Reading Time Taken Comments Blood Pressure 116/80 07/10/2024 8:28 AM RAG PRODUCTION WORKER Pulse 73 07/10/2024 8:28 AM RAG PRODUCTION WORKER Temperature 36.6 C (97.8 F) 07/10/2024 8:28 AM RAG PRODUCTION WORKER Respiratory Rate 18 07/07/2024 10:21 AM RAG PRODUCTION WORKER Oxygen Saturation 100% 07/07/2024 10:21 AM RAG PRODUCTION WORKER Inhaled Oxygen Concentration - - Weight 69.9 kg (154 lb) 07/10/2024 8:28 AM RAG PRODUCTION WORKER Height 177.8 cm (5' 10 ) 07/10/2024 8:28 AM RAG PRODUCTION WORKER Body Mass Index 22.1 07/10/2024 8:28 AM RAG PRODUCTION WORKER Plan of Treatment Health Maintenance Due Date Last Done Comments Breast Cancer Screening-Mammogram 1954 Colon Cancer Screening-Colonoscopy 1954 Depression Screening 1954 Osteoporosis Screening-Bone Density Scan 1954 DTaP/Tdap/Td Vaccine (1 - Tdap) 1965 Hepatitis B Screening 1972 Pneumococcal vaccine 65+ (1 of 2 - PCV) 1973 Well Visit 65+ 2019 Zoster Vaccine (2 of 2) 05/06/2020 03/11/2020 Fall Risk Assessment 09/19/2023 09/18/2022 Covid-19 Vaccine (7 - Modern a risk season) 2024 03/06/2024, 08/09/2023, 03/15/2022, Additional history exists Hepatitis C Screening Completed 02/05/2024, 023 Influenza Vaccine Completed 03/06/2024, , 03/23/2021, Additional history exists Procedures Procedure Name Priority Date/Time Associated Diagnosis Comments ERYTHROCYTE SEDIMENTATION RATE Routine 07/10/2024 9:42 AM RAG PRODUCTION WORKER Urticarial vasculitis THIOPURINE METABOLITES Routine 07/10/2024 9:42 AM RAG PRODUCTION WORKER 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 COMPREHENSIVE METABOLIC PANEL Routine 07/10/2024 9:42 AM RAG PRODUCTION WORKER Urticarial vasculitis CRP (ACUTE PHASE) Routine 07/10/2024 9:4 2 AM RAG PRODUCTION WORKER Urticarial vasculitis CBC WITH AUTO DIFFERENTIAL Routine 07/10/2024 9:42 AM RAG PRODUCTION WORKER Urticarial vasculitis MRI MRA VESSEL WALL IMAGING W WO CONTRAST Schedule Routine, Read Routine (OP Routine) 07/08/2024 12:12 PM RAG PRODUCTION WORKER Vasculitis, ROAD ENGINEER (CMS/HCC) (HCC) Meningoencephaliti s CRP (ACUTE PHASE) Routine 05/26/2024 11: 55 AM RAG PRODUCTION WORKER ERYTHROCYTE SEDIMENTATION RATE Routine 05/26/2024 11:55 AM RAG PRODUCTION WORKER COMPREHENSIVE METABOLIC PANEL Routine 05/26/2024 11:55 AM RAG PRODUCTION WORKER CBC WITH AUTO DIFFERENTIAL Routine 05/26/2024 11:55 AM RAG PRODUCTION WORKER THIOPURINE METABOLITES Routine 05/26/2024 11:55 AM RAG PRODUCTION WORKER 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 MISC-ORDER Routine 05/13/2024 8:51 AM RAG PRODUCTION WORKER HEPATITIS PANEL, ACUTE Routine 02/05/2024 11:38 AM CDT Rash and other nonspecific skin eruption from Last 3 Months or Most Recently Relevant to Health Maintenance Results * Thiopurine metabolites (07/10/2024 9:42 AM RAG PRODUCTION WORKER) Pathologist [facility] 6-TG, bld 281 235 - 450 [place] [facility] Comment:Increased possibilit y of response; optimal dosing. 6-MMP, bld <406 < or = 5700 [facility] Comment: Result not quantifiable; below the limit of quantitation. Decreased risk of hepatotoxicity. ADDITIONAL INFORMATION Testing performed by Liquid Chromatography-Tandem Mass Spectrometry (LC-MS/MS) This test was developed and its performance characteristics determined by [facility] in a manner consistent with CLIA requirements. This test has not been cleared or approved by the U.S. Food and Drug Administration. Test Performed by: [place] [address] Customer Support Specialist: Dawit Avendano Ph.D.; CLIA# [id number] Blood 07/10/2024 9:42 AM RAG PRODUCTION WORKER 07/10/2024 12:32 PM RAG PRODUCTION WORKER Hardy Dash MD LAB BL OOD ORDERABLES Final Result [facility] Department [place] [address] [place] [facility] * (ABNORMAL) CBC with auto differential (07/10/2024 9:42 AM RAG PRODUCTION WORKER) White Blood Count 3.7 3.6 - 11.2 K/uL [facility] RBC 3.76 3.63 - 4.92 M/uL [facility] Hemoglobin 12.0 11.9 - 15.5 g/dL [facility] Hematocrit 36.0(L) 36.1 - 44.3 % [facility] MCV 95.7 80.0 - 97.6 fL [facility] MCH 32.0 26.7 - 33.7 pg [facility] MCHC 33.5 32.7 - 35.5 g/dL [facility] RBC Dist Width 18.3(H) 12.3 - 17.0 % [facility] Platelet Count 224 140 - 440 K/uL [facility] MPV 7.9 6.8 - 10.4 fL [facility] Neutrophils % 53.3 38.7 - 74.5 % [facility] Lymphocyte % 28.7 20.0 - 54.3 % [facility] Monocytes % 10.2 4.3 - 13.5 % [facility] Eosinophils % 6.3(H) 0.0 - 6.0 % [facility] Basophil % 1.5 0.0 - 3.0 % [facility] Absolute Neutrophil 2.0 1.8 - 6.6 K/uL [facility] Absolute Lymphocyte 1.1 0.8 - 3.3 K/uL [facility] Absolute Monocyte 0.4 0.2 - 1.2 K/uL [facility] Absolute Eosinophil 0.2 0.0 - 0.5 K/uL [facility] Absolute Basophil 0.1 0.0 - 0.2 K/uL [facility] Nucleated RBC % 0.2 0.0 - 0.4 /100 WBC [facility] Blood 07/10/2024 9:42 AM RAG PRODUCTION WORKER 07/10/2024 10:51 AM RAG PRODUCTION WORKER Hardy Dash MD LAB BL OOD ORDERABLES Final Result [facility] * (ABNORMAL) Erythrocyte sedimentation rate (07/10/2024 9:42 AM RAG PRODUCTION WORKER) Erythrocyte sedimentation rate 42(H) 1 - 30 mm/hr Blood 07/10/2024 9:42 AM RAG PRODUCTION WORKER 07/10/2024 12:09 PM RAG PRODUCTION WORKER Hardy Dash MD LAB BL OOD ORDERABLES Final Result [facility] [place] [address] * (ABNORMAL) CRP (acute phase) (07/10/2024 9:42 AM RAG PRODUCTION WORKER) C-Reactive Protein, Acute 6.1(H) <5.0 mg/L [facility] Blood 07/10/2024 9:42 AM RAG PRODUCTION WORKER 07/10/2024 10:51 AM RAG PRODUCTION WORKER Hardy Dash MD LAB BL OOD ORDERABLES Final Result [facility] * (ABNORMAL) Comprehensive metabolic panel (07/10/2024 9:42 AM RAG PRODUCTION WORKER) Total Protein 8.1 6.1 - 8.4 g/dL [facility] Albumin 4.1 3.5 - 5.2 g/dL [facility] Calcium 9.6 8.6 - 10.3 mg/dL [facility] BUN 7 7 - 23 mg/dL [facility] Total Bilirubin 0.36 0.20 - 1.40 mg/dL [facility] Alk Phos, Total 123 35 - 129 IU/L [facility] AST (SGOT) 30 11 - 47 IU/L [facility] ALT (SGPT) 16 6 - 53 IU/L [facility] Creatinine 0.73 0.60 - 1.10 mg/dL [facility] Sodium 132(L) 135 - 145 mmol/L [facility] Potassium 4.2 3.3 - 5.1 mmol/L [facility] Chloride 96 95 - 107 mmol/L [facility] CO2 Content 28 21 - 29 mmol/L [facility] Glucose 100(H) 64 - 99 mg/dL [facility] Comment: NONFASTING GLUCOSE RANGE = 64-199 mg/dL FASTING GLUCOSE 64 - 99 = NORMAL FASTING GLUCOSE 100 - 125 = IMPAIRED FASTING GLUCOSE FASTING GLUCOSE >=126 = PROVISIONAL DIAGNOSIS OF DIABETES eGFR 88.4 >60.0 mL/min/1.7 3 m2 [facility] Blood 07/10/2024 9:42 AM RAG PRODUCTION WORKER 07/10/2024 10:51 AM RAG PRODUCTION WORKER Hardy Dash MD LAB BL OOD ORDERABLES Final Result [facility] * MRI MRA Vessel Wall Imaging W WO Contrast (07/08/2024 12:12 PM RAG PRODUCTION WORKER) Anatomical Region Laterality Modality Head and Neck N/A Magnetic Resonan ce 07/08/2024 4:14 PM RAG PRODUCTION WORKER Impressions 07/08/2024 5:13 PM RAG PRODUCTION WORKER 1. Vessel wall imaging demonstrates enhancement in a similar distribution when compared to 01/25/2024 primarily within the right intracranial internal carotid artery, proximal branches of the bilateral middle cerebral artery M2 segments and bilateral V4 segments of the vertebral arteries. Again, these abnormal vessels are adjacent to areas of encephalomalacia. 2. Stable cystic encephalomalacia of the left greater than right temporal lobes as delineated above with susceptibility artifact in keeping with prior hemorrhage. Dictated by: César Segura D.O. The radiology attending physician has personally reviewed this study, and had reviewed and/or edited this written report and agrees with it. Electronically signed by: Maureen Arenas M.D. Narrative 07/08/2024 5:13 PM RAG PRODUCTION WORKER EXAMINATION: 1. Magnetic resonance imaging (MRI) of the brain and brainstem without and with contrast 2. Magnetic resonance angiography (MRA) of the [id number]-en-Truohf without and with contrast. TWIST sequences of the carotids were also performed 3. Dedicated vessel wall imaging with T1 space sequence with contrast HISTORY: 69 years-old Female with history of temporal lobe encephalitis with staring spells. History of HSV encephalitis, although most recent episode of encephalitis did not demonstrate a chest the on CSF analysis. Concern for a underlying right mean/inflammatory etiology. TECHNIQUE: 1. Multiplanar multi-weighted MRI of the brain and brainstem was performed without and with intravenous contrast using the general brain protocol. 2. Magnetic resonance angiography of the [id number]-[id number]-[id number] was performed using a separate data acquisition with a non-contrast [id number]-[id number] technique and a post-contrast technique to produce axial thin-slice source images. These images were then used to generate maximum intensity projection (MIP) images. Dedicated vessel wall imaging was also performed. Contrast information: 14 mL Gadoterate Meglumine COMPARISON: 01/25/2024, 08/21/2022, 04/19/2023. FINDINGS: Vessel wall analysis demonstrates circumferential enhancement of the right intracranial internal carotid artery. Additional circumferential enhancement of the bilateral proximal M2 segments, for reference series 264, image 68 on the right and 364, image 60 on the left. These regions of enhancement are grossly unchanged compared to prior examination 01/25/2024. Further significant central enhancement V4 segments of the bilateral vertebral arteries Redemonstrated cystic encephalomalacia of the anterior and lateral aspects of the left temporal lobe. Encephalomalacia is also noted in the right parahippocampal and fusiform gyri. These areas of encephalomalacia are notably adjacent to the regions of vessel wall enhancement. Along the posterior margin of the left temporal lobe encephalomalacia, there is an area of enhancement, susceptibility artifact and diffusion restriction which remains unchanged from 01/25/2024. Findings may represent an area of resolved hemorrhage. There is mild pachymeningeal FLAIR hyperintensity, thickening and enhancement along the left temporal convexity and middle cranial fossa. Stability artifact of the left greater than right temporal lobes is consistent with prior hemorrhage. The scalp and calvarium are normal. The superior sagittal sinus demonstrates normal venous flow. The corpus callosum is normal in shape and signal intensity. The posterior fossa is unremarkable. The pituitary and sella are normal. The brainstem and craniocervical junction are unremarkable. Exvacuodilatation of the temporal horns bilaterally, left greater than right. The paranasal sinuses are normal. Scattered mild bilateral mastoid air cell effusions. The orbits appear normal. Normal flow voids are demonstrated in the carotid arteries and basilar artery. The internal carotid arteries in the head are of normal caliber. There are no additional areas of vascular narrowing. The [id number] is complete. Bilateral posterior cerebral artery origins. The anterior cerebral arteries are normal. The vertebral arteries are codominant. The basilar artery is normal. The posterior cerebral arteries are normal. There is no aneurysm or vascular malformation identified. Although MRA is a screening examination, catheter angiography remains the definitive study for small aneurysms, vasculitis, and other vascular abnormalities. Procedure Note VoMaureen MD - 07/08/2024 EXAMINATION: 1. Magnetic resonance imaging (MRI) of the brain and brainstem without and with contrast 2. Magnetic resonance angiography (MRA) of the [id number] without and with contrast. TWIST sequences of the carotids were also performed 3. Dedicated vessel wall imaging with T1 space sequence with contrast HISTORY: 69 years-old Female with history of temporal lobe encephalitis with staring spells. History of HSV encephalitis, although most recent episode of encephalitis did not demonstrate a chest the on CSF analysis. Concern for a underlying right mean/inflammatory etiology. TECHNIQUE: 1. Multiplanar multi-weighted MRI of the brain and brainstem was performed without and with intravenous contrast using the general brain protocol. 2. Magnetic resonance angiography of the fdikky-tr-Wbilci was performed using a separate data acquisition with a non-contrast [id number]-[id number] technique and a post-contrast technique to produce axial thin-slice source images. These images were then used to generate maximum intensity projection (MIP) images. Dedicated vessel wall imaging was also performed. Contrast information: 14 mL Gadoterate Meglumine COMPARISON: 01/25/2024, 08/21/2022, 04/19/2023. FINDINGS: Vessel wall analysis demonstrates circumferential enhancement of the right intracranial internal carotid artery. Additional circumferential enhancement of the bilateral proximal M2 segments, for reference series 264, image 68 on the right and 364, image 60 on the left. These regions of enhancement are grossly unchanged compared to prior examination 01/25/2024. Further significant central enhancement V4 segments of the bilateral vertebral arteries Redemonstrated cystic encephalomalacia of the anterior and lateral aspects of the left temporal lobe. Encephalomalacia is also noted in the right parahippocampal and fusiform gyri. These areas of encephalomalacia are notably adjacent to the regions of vessel wall enhancement. Along the posterior margin of the left temporal lobe encephalomalacia, there is an area of enhancement, susceptibility artifact and diffusion restriction which remains unchanged from 01/25/2024. Findings may represent an area of resolved hemorrhage. There is mild pachymeningeal FLAIR hyperintensity, thickening and enhancement along the left temporal convexity and middle cranial fossa. Stability artifact of the left greater than right temporal lobes is consistent with prior hemorrhage. The scalp and calvarium are normal. The superior sagittal sinus demonstrates normal venous flow. The corpus callosum is normal in shape and signal intensity. The posterior fossa is unremarkable. The pituitary and sella are normal. The brainstem and craniocervical junction are unremarkable. Exvacuodilatation of the temporal horns bilaterally, left greater than right. The paranasal sinuses are normal. Scattered mild bilateral mastoid air cell effusions. The orbits appear normal. Normal flow voids are demonstrated in the carotid arteries and basilar artery. The internal carotid arteries in the head are of normal caliber. There are no additional areas of vascular narrowing. The [id number] is complete. Bilateral posterior cerebral artery origins. The anterior cerebral arteries are normal. The vertebral arteries are codominant. The basilar artery is normal. The posterior cerebral arteries are normal. There is no aneurysm or vascular malformation identified. Although MRA is a screening examination, catheter angiography remains the definitive study for small aneurysms, vasculitis, and other vascular abnormalities. IMPRESSION: 1. Vessel wall imaging demonstrates enhancement in a similar distribution when compared to 01/25/2024 primarily within the right intracranial internal carotid artery, proximal branches of the bilateral middle cerebral artery M2 segments and bilateral V4 segments of the vertebral arteries. Again, these abnormal vessels are adjacent to areas of encephalomalacia. 2. Stable cystic encephalomalacia of the left greater than right temporal lobes as delineated above with susceptibility artifact in keeping with prior hemorrhage. Dictated by: César Segura D.O. The radiology attending physician has personally reviewed this study, and had reviewed and/or edited this written report and agrees with it. Electronically signed by: Maureen Arenas M.D. Sanya Farmer MD IM MRI PROCEDURES Final Re sult * (ABNORMAL) Thiopurine metabolites (05/26/2024 11:55 AM RAG PRODUCTION WORKER) 6-TG, bld 425(H) 235 - 400 pmol/8x10( 8)RBC [facility] Comment: (Note) This test was developed and its analytical performance characteristics have been determined by [employer]. It has not been cleared or approved by the FDA. This assay has been validated pursuant to the CLIA regulations and is used for clinical purposes. 6 MMP <500 <5700 pmol/8x10( 8)RBC [facility] Comment: (Note) These results are useful in assessing a patient's metabolism of azathioprine (AZA) or 6-mercaptopurine (6-MP). A 6-thioguanine (6-TG) level greater than 235 pmol/8x10(8) RBC has been associated with remission and very high levels have been associated with leucopenia. 6-methylmercaptopurine (6-MMP) levels greater than 5700 pmol/8x10(8) RBC may be associated with hepatoxicity. This test was developed and its analytical performance characteristics have been determined by [employer]. It has not been cleared or approved by the FDA. This assay has been validated pursuant to the CLIA regulations and is used for clinical purposes. [facility] [address] [facility] [address] [facility] [address] Val Carmona MD, PhD Blood 05/26/2024 11:5 5 AM RAG PRODUCTION WORKER 05/26/2024 11:56 AM RAG PRODUCTION WORKER Hardy Dash MD LAB BL OOD ORDERABLES Final Result [facility] [address] [facility] [address] [place] [address] * (ABNORMAL) CBC with auto differential (05/26/2024 11:55 AM RAG PRODUCTION WORKER) WBC 3.4(L) 3.8 - 10.8 Thousand/u L [facility] RBC, POC 3.68(L) 3.80 - 5.10 Million/uL [facility] Hgb 11.0(L) 11.7 - 15.5 g/dL [facility] Hct 35.8 35.0 - 45.0 % [facility] MCV 97.3 80.0 - 100.0 fL [facility] MCH 29.9 27.0 - 33.0 pg [facility] MCHC 30.7(L) 32.0 - 36.0 g/dL [facility] Comment: For adults, a slight decrease in the calculated MCHC value (in the range of 30 to 32 g/dL) is most likely not clinically significant; however, it should be interpreted with caution in correlation with other red cell parameters and the patient's clinical condition. Rdw 16.2(H) 11.0 - 15.0 % [facility] Platelets 235 140 - 400 Thousand/u L [facility] MPV 9.6 7.5 - 12.5 fL [facility] Neutrophils, abs 1,717 1,500 - 7,800 cells/uL [facility] Lymphocytes, abs 1,054 850 - 3,900 cells/uL [facility] Monocyte abs 415 200 - 950 cells/uL [facility] Eosinophils, abs 184 15 - 500 cells/uL [facility] Basophils, abs 31 0 - 200 cells/uL [facility] Neutrophils 50.5 % [facility] Lymphocyte pct 31.0 % [facility] Monocytes 12.2 % [facility] Eosinophils 5.4 % [facility] Basophils 0.9 % [facility] 05/26/2024 11:5 5 AM RAG PRODUCTION WORKER 05/26/2024 11:56 AM RAG PRODUCTION WORKER Result [facility] Hardy Dash MD LAB BL OOD ORDERABLES Final Result Performing Organization Address City/[facility]/ZIP Co de Phone Number [facility] [address] [place] [address] * Erythrocyte sedimentation rate (05/26/2024 11:55 AM RAG PRODUCTION WORKER) Erythrocyte sedimentation rate 27 < OR = 30 mm/h [facility] 05/26/2024 11:5 5 AM RAG PRODUCTION WORKER 05/26/2024 11:56 AM RAG PRODUCTION WORKER Hardy Dash MD LAB BL OOD ORDERABLES Final Result [facility] [address] [place] [address] * CRP (acute phase) (05/26/2024 11:55 AM RAG PRODUCTION WORKER) Pathologist [facility] C-RP <3.0 <8.0 mg/L [employer] [facility] 05/26/2024 11:5 5 AM RAG PRODUCTION WORKER 05/26/2024 11:56 AM RAG PRODUCTION WORKER Hardy Dash MD LAB BL OOD ORDERABLES Final Result [facility] [address] [address] [facility] [place] [address] * (ABNORMAL) Comprehensive metabolic panel (05/26/2024 11:55 AM RAG PRODUCTION WORKER) [facility] Glucose 84 65 - 99 mg/dL [facility] Comment: Fasting reference interval BUN 11 7 - 25 mg/dL [facility] Creatinine 0.75 0.50 - 1.05 mg/dL [facility] eGFR 86 > OR = 60 mL/min/1.7 3m2 [facility] BUN/creat ratio SEE NOTE: 6 - 22 (calc) [facility] Comment: Not Reported: BUN and Creatinine are within reference range. Sodium 131(L) 135 - 146 mmol/L [facility] Potassium, pl 4.4 3.5 - 5.3 mmol/L [facility] Chloride 97(L) 98 - 110 mmol/L [employer] tr[facility] Mckeon CO2 29 20 - 32 mmol/L [facility] Calcium 9.0 8.6 - 10.4 mg/dL [facility] Protein, sr 7.3 6.1 - 8.1 g/dL [facility] Albumin 3.9 3.6 - 5.1 g/dL [facility] GLOBULIN 3.4 1.9 - 3.7 g/dL (calc) [facility] Alb/glob ratio 1.1 1.0 - 2.5 (calc) [facility] Bilirubin, total 0.4 0.2 - 1.2 mg/dL [facility] Alk phos 90 37 - 153 U/L [facility] AST 20 10 - 35 U/L [facility] ALT (SGPT) 10 6 - 29 U/L [facility] 05/26/2024 11:5 5 AM RAG PRODUCTION WORKER 05/26/2024 11:56 AM RAG PRODUCTION WORKER Hardy Dash MD LAB BL OOD ORDERABLES Final Result [facility] [address] [place] [address] * MISC-ORDER (05/13/2024 8:51 AM RAG PRODUCTION WORKER) Historical Provider LAB BLOOD ORDERABLES Keyona l Result * Hepatitis panel, acute Blood (02/05/2024 11:38 AM CDT) Hep A IgM Nonreactive Nonreactive Hep B core IgM Nonreactive Nonreactive [facility] Hep C Ab Nonreactive Nonreactive [facility] Comment:Antibodies to HCV no t detected. Does NOT exclude the possibility of recent exposure to HCV. Current interpretive data was last revised on 22 HepBsAg Nonreactive Nonreactive [facility] Blood 02/05/2024 11:3 8 AM CDT 02/05/2024 12:20 PM CDT Yolette Palmer MD PhD LAB MICROBIOLOGY - GENERAL ORDERABLES Final Result [facility] Department [place] [address] from Last 3 Months or Most Recently Relevant to Health Maintenance Insurance AET[employer] MEDICARE GOLD AETNA MEDICARE GOLD AETNA MEDICARE GOLD AETNA MEDICARE GOLD Advance Directives For more information, please contact: [phone] * Full Code (Latest Code Status on File) Date Activated Date Inactivated Comments 08/30/2022 3:05 PM 09/18/2022 7:53 PM * Full Code Date Activated Date Inactivated Comments 06/06/2022 6:17 PM 06/07/2022 6:51 PM * Full Code Date Activated Date Inactivated Comments 06/06/2022 5:47 PM 06/06/2022 6:17 PM Care Teams Supervisor Capacitor Processing Relationship Specialty Start Date End Date Alison Perez MD [address] [facility] [place] [address] PCP - General Internal Medicine 08/31/22 Zenon Alexander MD PhD [address] [place] [address] Consulting Physician Neurology 09/18/22 Terrence Avalos MD [address] [place] [address] Consulting Physician Infectious Diseases 09/18/22
--- OUTSIDE RECORDS SUMMARY | 2024-07-29 16:15 | XMS_ITS ---
Author Organization [facility] Address [address] [place] [address] Care Team Providers Care Assembler Carbon Brushes Name Role Phone Chris Alison Primary Care Provider UnavailTommie Quezada Unavailable [phone] [facility]M[employer], Provider Unavailable Unavailab le Allergies Allergen (clinical drug ingredient) Drug/Non Drug Allergy documented on EMR Reaction Allergy Type Onset Date Status Medicinal quinolone and acting as antibacterial agent (FN) FLUOROQUINOLONE (uncoded) hives Allergy Active SULFA (BACTRIM) (uncoded) hives Allergy Active Medicinal cephalosporin and acting as antibacterial agent (FN) Cephalosporins hives Drug Allergy Active Penicillin hives Drug Allergy Active REASON FOR VISIT [facility] To [facility] Conversion Encounter Medications Medication SIG (Take, Route, Frequency, Duration) Notes Start Date End Date Status Rhopressa 0.02 % 1 gtt in each eye once a day (in the evening) for 30 day(s) Active Brimonidine Tartrate 0.2 % 1 gtt in each affected eye 3 times a day for 30 day(s) Active VANICREAM MOISTURIZING CREAM N/A NECESSARY APPLY TO EXTERNAL SURFACES OFTEN NEEDED TO FACE, HANDS, FEET OR BODY FOR DAILY USE BY THE ENTIRE FAMILY for 30 DAY(S) *Please review for potential replacement for e-prescription and drug interaction check* Active Cetirizine HCl 10 MG 1 tab(s) orally BID for 30 days Active Meloxicam 15 MG 1 tab(s) orally once a day Active LOTEPREDNOL OPHTHALMIC 0.5% 2 GTT IN EACH AFFECTED EYE 4 TIMES A DAY for 14 DAY(S) *Please review for potential replacement for e-prescription and drug interaction check* Active TIMOLOL MALEATE (EQV-TIMOPTIC) MALEATE 0.5% 1 GTT IN EACH AFFECTED EYE ONCE A DAY for 30 DAY(S) *Please review for potential replacement for e-prescription and drug interaction check* Active amLODIPine Besylate 10 MG 1 tab(s) orally once a day Active Levothyroxine Sodium 125 MCG 1 tab(s) orally once a day Active Encounters Encounter Location Date Provider Diagnosis [facility] - [address] [address] 11/17/2023 Provider CHRISTIAN-Migration Rash and other nonspecific skin eruption R21 Assessments Encounter Date Diagnosis (ICD Code) Assessment Notes Treatment Notes Treatment Clinical Notes Section Notes 11/17/2023 Rash and other nonspecific skin eruption (ICD-10 - R21) Plan Of Treatment Medication Medication Name Sig Start Date Stop Date Notes VANICREAM MOISTURIZING CREAM N/A NECESSARY APPLY TO EXTERNAL SURFACES OFTEN NEEDED TO FACE, HANDS, FEET OR BODY FOR DAILY USE BY THE ENTIRE FAMILY for 30 DAY(S) *Please review for potential replacement for e-prescription and drug interaction check* Cetirizine HCl 10 MG 1 tab(s) orally BID for 30 days Meloxicam 15 MG 1 tab(s) orally once a day amLODIPine Besylate 10 MG 1 tab(s) orally once a day Levothyroxine Sodium 125 MCG 1 tab(s) orally once a day Progress Notes * Jared LEWISOB:[birth year] (69 yo F)Acc No.[id number]:11/17/2023 Patient: Ely QUIÑONEZne Provider: Percy Urrutia :1955 A ge:68 Y S ex:Female Date:11/17/2023 Address:[address] [employer], [place] [id number] Pcp:Alison Perez Subjective: * Chief Complaints: * 1 . Multum To Medispan Conversion Encounter. * Medical History: * Medications: T aking TIMOLOL MALEATE (EQV-TIMOPTIC) MALEATE 0.5% SOLUTION 1 GTT IN EACH AFFECTED EYE ONCE A DAY , Notes to Pharmacist: *Please review for potential replacement for e-prescription and drug interaction check*, Taking LOTEPREDNOL OPHTHALMIC 0.5% SUSPENSION 2 GTT IN EACH AFFECTED EYE 4 TIMES A DAY , Notes to Pharmacist: *Please review for potential replacement for e-prescription and drug interaction check*, Taking Brimonidine Tartrate 0.2 % Solution 1 gtt in each affected eye 3 times a day , Taking Rhopressa 0.02 % Solution 1 gtt in each eye once a day (in the evening) * Allergies: P enicillin: hives, SULFA (BACTRIM): hives, Cephalosporins: hives, FLUOROQUINOLONE: hives. Objective: * Vitals: Assessment: * Assessment: 1. R magui and other nonspecific skin eruption - R21 (Primary) Plan: * Treatment: 2. O thers Continue Levothyroxine Sodium Tablet, 125 MCG, 1 tab(s), orally, once a day; C ontinue amLODIPine Besylate Tablet, 10 MG, 1 tab(s), orally, once a day; C ontinue Meloxicam Tablet, 15 MG, 1 tab(s), orally, once a day. * Billing Information: * Visit Code: * Procedure Codes: * Electronic signature of Shruthi MendozaZ-Migration on 07/29/2024 at 04:15 PM BUNCHER OPERATOR Sign off status: Pending * Provider: Percy augustin Migration Date: 0 11/17/2023 Generated for Lindsey montes/Aaliyah/Radhaitting on: 0 07/29/2024 04:15 PM BUNCHER OPERATOR
--- OUTSIDE RECORDS SUMMARY | 2024-07-29 16:15 | XMS_ITS | Referral Summary ---
Author Organization [facility] Address [address] [place] [address] Care Team Providers Care Bonding Equipment Operator Name Role Phone Alison Perez MD Primary Care Provider [phone] Zenon Alexander MD PhD Unavailable Terrence Avalos MD Unavailable [phone] Encounters Date Type Department Care Team Description 07/29/2024 Telephone [facility] Neurology [address] [place] [address] [place] [phone] Sanya Farmer MD 07/18/2024 Telephone [facility] Neurology [address] [place] [phone] Samantha Morris 07/15/2024 Telephone [facility] Neurology [address] [place] [phone] Sanya Farmer MD 07/14/2024 Telephone [facility] Neurology [address] [place] [phone] Sanya Farmer MD 07/10/2024 9:[address] PAINTER HELPER - 07/10/2024 11:[address] HELPER Hospital Encounter [facility] [address] [place] [address] 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; Urticarial vasculitis Discharge Disposition: Discharge to home or self care 07/10/2024 9:[address] PA[address] HELPER Lab [facility] Endocrinology Metabolism and Lipid [address] [facility] 5th [place] [address] [place] [address] 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 8:[address] HELPER Office Visit [facility] Rheumatology [address] [facility] 5th [place] [address] [place] [phone] Hardy De Santiago MD Urticarial vasculitis (Primary Dx); 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; METAL BENDING MACHINE OPERATOR vasculitis (CMS/[facility]) (HCC); Abnormal brain scan 07/08/2024 Orders Only [facility] Neurology [address] [facility] 6th [place] [address] [place] [phone] Sanya Farmer MD Vasculitis, METAL BENDING MACHINE OPERATOR (CMS/HCC) (HCC) (Primary Dx); Mild cognitive impairment 07/08/2024 10:[address] PAINTER HELPER - 07/08/2024 11:[address] HELPER Hospital Encounter [facility] Radiology [address] [place] [address] Vasculitis, METAL BENDING MACHINE OPERATOR ([facility]/HCC) (HCC); Meningoencephalitis Discharge Disposition: Discharge to home or self care 07/07/2024 10:[address] HELPER Office Visit [facility] Allergy and Immunology [address] [facility] [address] [place] [phone] Shailesh Rivers MD PhD Urticarial vasculitis (Primary Dx); Chronic idiopathic urticaria 06/30/2024 Orders Only [facility] Neurology [address] [facility] [address] [place] [phone] Sanya Farmer MD Anxiety disorder, unspecified type 06/17/2024 Orders Only [facility] Neurology [address] [facility] 6th [place] [address] [place] [address] Sanya Farmer MD Vasculitis, METAL BENDING MACHINE OPERATOR (CMS/HCC) (HCC) (Primary Dx); 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 8:[address] PA[address] HELPER Clinical Support [facility] Neuro Psychology [address] [facility] [address] [place] [address] Winston Yousif, PhD Cognitive changes 05/23/2024 11:[address] PAINTER HELPER Office Visit [facility] Neurology [address] [facility] 6th [place] [address] [place] [phone] Sanya Farmer MD Meningoencephalitis (Primary Dx); Vasculitis, METAL BENDING MACHINE OPERATOR (CMS/HCC) (HCC); Atopic dermatitis, unspecified type; Seizure ([facility]) 05/20/2024 Telephone [facility] Rheumatology [address] [facility] [address] [place] [address] Hardy De Santiago MD 05/19/2024 Orders Only [facility] Rheumatology [address] [facility] 5[address] [place] [address] [place] [address] Hardy De Santiago MD 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 (Primary Dx) 05/16/2024 Orders Only [facility] Neurology [address] [facility] [address] [place] [address] Provider, MD Yunier from Last 3 Months Allergies Active Allergy Reactions Criticality Noted Date [...] Problems Problem Noted Date Diagnosed Date Vasculitis, METAL BENDING MACHINE OPERATOR (CMS/HCC) 05/22/2024 Unspecified contact dermatitis due to other agen ts 04/23/2023 Acute respiratory failure 04/09/2023 Brain herniation (CMS/[facility]) 04/09/2023 Cerebrovascular accident (CVA) 04/09/2023 Endotracheally intubated 04/09/2023 Hyponatremia 04/09/2023 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 Seizure 08/30/2022 Hypokalemia 08/30/2022 Elevated liver enzymes 08/30/2022 Atopic dermatitis 08/30/2022 Facial cellulitis 06/06/2022 Assessment & Plan (06/06/2022 8:[address] PAINTER HELPER): Started on Vancomycin CBC and BMP in a.m Cyst of breast 07/07/2015 HTN (hypertension) Assessment & Plan (06/06/2022 8:[address] PAINTER HELPER): Continue amlodipine and losartan Graves disease Assessment & Plan (06/06/2022 8:[address]INTER HELPER): Continue Synthroid Resolved Problems Problem Noted Date Diagnosed Date Resolved Date 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 More than 4 times per year 08/31/2022 Do you belong to any clubs o r organizations such as caodaism groups, unions, fraternal or athletic groups, or [...] on file Legal Sex Female 11:[address] HELPER Gender Identity Female 02/08/2019 7:49 PM CDT Sexual Orientation Straight 02/08/2019 7: 49 PM CDT Last Filed Vital Signs Vital Sign Reading Time Taken Comments Blood Pressure 116/80 07/10/2024 8:[address] HELPER Pulse 73 07/10/2024 8:[address] PAINTER HELPER Temperature 36.6 C (97.8 F) 07/10/2024 8:[address] PAINTER HELPER Respiratory Rate 18 07/07/2024 10:[address] PAINTER HELPER Oxygen Saturation 100% 07/07/2024 10:[address] PAINTER HELPER Inhaled Oxygen Concentration - - Weight 69.9 kg (154 lb) 07/10/2024 8:[address]INTER HELPER Height 177.8 cm (5' 10 ) 07/10/2024 8:[address] PAINTER HELPER Body Mass Index 22.1 07/10/2024 8:[address] PAINTER HELPER Plan of Treatment Not on file Procedures Procedure Name Priority Date/Time Associated Diagnosis Comments ERYTHROCYTE SEDIMENTATION RATE Routine 07/10/2024 9:[address] PAINTER HELPER Urticarial vasculitis THIOPURINE METABOLITES Routine 07/10/2024 9:[address] PAINTER HELPER 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 COMPREHENSIVE METABOLIC PANEL Routine 07/10/2024 9:[address] PAINTER HELPER Urticarial vasculitis CRP (ACUTE PHASE) Routine 07/10/2024 9:[address] HELPER Urticarial vasculitis CBC WITH AUTO DIFFERENTIAL Routine 07/10/2024 9:[address] PAINTER HELPER Urticarial vasculitis MRI MRA VESSEL WALL IMAGING W WO CONTRAST Schedule Routine, Read Routine (OP Routine) 07/08/2024 12:[address] PAINTER HELPER Vasculitis, METAL BENDING MACHINE OPERATOR (CMS/HCC) (HCC) Meningoencephaliti s CRP (ACUTE PHASE) Routine 05/26/2024 11: [address] PAINTER HELPER ERYTHROCYTE SEDIMENTATION RATE Routine 05/26/2024 11:[address] PAINTER HELPER COMPREHENSIVE METABOLIC PANEL Routine 05/26/2024 11:[address] PAINTER HELPER CBC WITH AUTO DIFFERENTIAL Routine 05/26/2024 11:[address] PAINTER HELPER THIOPURINE METABOLITES Routine 05/26/2024 11:[address] PAINTER HELPER 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 MISC-ORDER Routine 05/13/2024 8:[address] PAINTER HELPER HEPATITIS PANEL, ACUTE Routine 02/05/2024 11:38 AM CDT Rash and other nonspecific skin eruption from Last 3 Months or Most Recently Relevant to Health Maintenance Results * Thiopurine metabolites (07/10/2024 9:[address] PAINTER HELPER) 6-TG, bld 281 235 - 450 [place] ref Lab Comment:Increased possibilit y of response; optimal dosing. 6-MMP, bld <406 < or = 5700 [facility] Comment: Result not quantifiable; below the limit of quantitation. Decreased risk of hepatotoxicity. ADDITIONAL INFORMATION Testing performed by Liquid Chromatography-Tandem Mass Spectrometry (LC-MS/MS) This test was developed and its performance characteristics determined by [facility] in a manner consistent with CLIA requirements. This test has not been cleared or approved by the U.S. Food and Drug Administration. Test Performed by: [facility] [place] [address] [place] [address] Hot Air Furnace Installer Repairer: Dawit Avendano Ph.D.; CLIA# [id number] Blood 07/10/2024 9:[address]INTER HELPER 07/10/2024 12:[address] HELPER Hardy Dash MD LAB BL OOD ORDERABLES Final Result [facility] Department [place] [address] [place] ref [facility] * (ABNORMAL) CBC with auto differential (07/10/2024 9:[address] PAINTER HELPER) White Blood Count 3.7 3.6 - 11.2 [...] [facility] Blood 07/10/2024 9:[address] PAINTER HELPER 07/10/2024 10:[address]INTER HELPER Hardy Dash MD LAB BL OOD ORDERABLES Final Result [facility] * (ABNORMAL) Erythrocyte sedimentation rate (07/10/2024 9:[address] PAINTER HELPER) Erythrocyte sedimentation rate 42(H) 1 - 30 mm/hr Blood 07/10/2024 9:[address] PAINTER HELPER 07/10/2024 12:[address] HELPER Hardy Dash MD LAB BL OOD ORDERABLES Final Result Performing Organization Address [facility] Co de Phone Number [facility] Department [place] [address] * (ABNORMAL) CRP (acute phase) (07/10/2024 9:[address] PAINTER HELPER) C-Reactive Protein, Acute 6.1(H) <5.0 mg/L [facility] Blood 07/10/2024 9:[address]INTER HELPER 07/10/2024 10:[address] HELPER Hardy Dash MD LAB BL OOD ORDERABLES Final Result Performing Organization Address City/[facility]/ZIP Co de Phone Number [facility] * (ABNORMAL) Comprehensive metabolic panel (07/10/2024 9:[address] PAINTER HELPER) Total Protein 8.1 6.1 - 8.4 g/dL [...] [facility] Blood 07/10/2024 9:[address] PAINTER HELPER 07/10/2024 10:[address]INTER HELPER Hardy Dash MD LAB BL OOD ORDERABLES Final Result [facility] * MRI MRA Vessel Wall Imaging W WO Contrast (07/08/2024 12:[address]INTER HELPER) Anatomical Region Laterality Modality Head and Neck N/A Magnetic Resonan ce 07/08/2024 4:[address] HELPER Impressions 07/08/2024 5:[address]INTER HELPER 1. Vessel wall imaging demonstrates enhancement in [...] Maureen Arenas M.D. Narrative 07/08/2024 5:[address] HELPER EXAMINATION: 1. Magnetic resonance imaging (MRI) of the brain and brainstem without and with contrast 2. Magnetic resonance angiography (MRA) of the yskivi-wd-Flkhkv without and with contrast. TWIST sequences of [...] protocol. 2. Magnetic resonance angiography of the qdrwzo-ay-Wlncpr was performed using a separate data acquisition with a non-contrast glyn-md-mzzomv technique and a post-contrast technique to produce [...] no additional areas of vascular narrowing. The hhvzap-vd-Ygddpd is complete. Bilateral posterior cerebral artery origins. [...] 2. Magnetic resonance angiography (MRA) of the nbhbiq-yn-Wpugos without and with contrast. TWIST sequences of [...] protocol. 2. Magnetic resonance angiography of the lasaxi-pr-Igibah was performed using a separate data acquisition with a non-contrast gelp-ml-zunpcz technique and a post-contrast technique to produce [...] no additional areas of vascular narrowing. The fwsxlz-pe-Knrqmv is complete. Bilateral posterior cerebral artery origins. [...] by: Maureen Arenas M.D. Sanya Farmer MD IMG MRI PROCEDURES Final Re sult * (ABNORMAL) Thiopurine metabolites (05/26/2024 11:[address]INTER HELPER) 6-TG, bld 425(H) 235 - 400 pmol/8x10( 8)RBC [facility] Comment: (Note) This test was developed and its analytical performance characteristics have been determined by [facility]. It has not been cleared or approved [...] analytical performance characteristics have been determined by [facility]. It has not been cleared or approved by the FDA. This assay has been validated pursuant to the CLIA regulations and is used for clinical purposes. [facility] med fusion [address] [facility] [employer] [facility],[address] [place] [id number] Val Carmona MD, PhD Blood 05/26/2024 11:[address] HELPER 05/26/2024 11:[address] HELPER Hardy Dash MD LAB BL OOD ORDERABLES Final Result [facility] [address] [facility] [place] [address], [address] [place] [address] * (ABNORMAL) CBC with auto differential (05/26/2024 11:[address]INTER HELPER) Pathologist [facility] WBC 3.4(L) 3.8 - 10.8 Thousand/u L [...] Diagnostics-S t Mike 05/26/2024 11:[address] HELPER 05/26/2024 11:[address] HELPER Hardy Dash MD LAB BL OOD ORDERABLES Final Result Performing Organization Address City/[facility]/ZIP Co de Phone Number [facility] [address] [place] [address] * Erythrocyte sedimentation rate (05/26/2024 11:[address] HELPER) Erythrocyte sedimentation rate 27 < OR = 30 mm/h [facility] tristen Mc[facility] 05/26/2024 11:[address] HELPER 05/26/2024 11:[address] HELPER Hardy Dash MD LAB BL OOD ORDERABLES Final Result Performing Organization Address [facility] Co de Phone Number [facility] [address] [place] [address] * CRP (acute phase) (05/26/2024 11:[address] HELPER) C-RP <3.0 <8.0 mg/L [facility] 05/26/2024 11:[address] HELPER 05/26/2024 11:[address] HELPER Hardy Dash MD LAB BL OOD ORDERABLES Final Result Performing Organization Address City/[facility] Co de Phone Number [facility] [address] [place] [address] * (ABNORMAL) Comprehensive metabolic panel (05/26/2024 11:[address]INTER HELPER) Glucose 84 65 - 99 mg/dL [facility] Comment: Fasting reference interval BUN 11 7 - 25 mg/dL [facility] Creatinine 0.75 0.50 - 1.05 mg/dL [facility] eGFR 86 > OR = 60 mL/min/1.7 3m2 [facility] [place] BUN/creat ratio SEE NOTE: 6 - 22 (calc) [facility] Comment: Not Reported: BUN and Creatinine are within reference range. Sodium 131(L) 135 - 146 mmol/L [facility] [place] Potassium, pl 4.4 3.5 - 5.3 mmol/L [facility] [place] Chloride 97(L) 98 - 110 mmol/L [facility] CO2 29 20 - 32 mmol/L [facility] [place] Calcium 9.0 8.6 - 10.4 mg/dL [facility] [place] Protein, sr 7.3 6.1 - 8.1 g/dL [facility] [place] Albumin 3.9 3.6 - 5.1 g/dL [facility] [place] GLOBULIN 3.4 1.9 - 3.7 g/dL (calc) [facility] Alb/glob ratio 1.1 1.0 - 2.5 (calc) [facility] [place] Bilirubin, total 0.4 0.2 - 1.2 mg/dL [facility] [place] Alk phos 90 37 - 153 U/L [facility] AST 20 10 - 35 U/L [facility] ALT (SGPT) 10 6 - 29 U/L [facility] [place] 05/26/2024 11:[address]PER 05/26/2024 11:[address]INTER HELPER Result [facility] Hardy Dash MD LAB BL OOD ORDERABLES Final Result [facility] [employer] [facility] [address] [place] [address] * MISC-ORDER (05/13/2024 8:[address] HELPER) Historical Provider LAB BLOOD ORDERABLES Keyona l Result * Hepatitis panel, acute Blood (02/05/2024 11:38 AM CDT) Hep A IgM Nonreactive Nonreactive Hep B core IgM Nonreactive Nonreactive [facility] Hep C Ab Nonreactive Nonreactive [facility] Comment:Antibodies to HCV no t detected. Does NOT exclude the possibility of recent exposure to HCV. Current interpretive data was last revised on 22 HepBsAg Nonreactive Nonreactive [facility] Blood 02/05/2024 11:3 8 AM CDT 02/05/2024 12:20 PM CDT Yolette Palmer MD PhD LAB MICROBIOLOGY - GENERAL ORDERABLES Final Result [facility] Department [place] [address] from Last 3 Months or Most Recently Relevant to Health Maintenance Insurance [facility] MEDICARE [facility] T MEDICARE [facility] AETNA MEDICARE GOLD AETNA MEDICARE [facility] Advance Directives For more information, please contact: [phone] * Full Code (Latest Code Status on File) Date Activated Date Inactivated Comments 08/30/2022 3:05 PM 09/18/2022 7:53 PM * Full Code Date Activated Date Inactivated Comments 06/06/2022 6:17 PM 06/07/2022 6:51 PM * Full Code Date Activated Date Inactivated Comments 06/06/2022 5:47 PM 06/06/2022 6:17 PM Care Teams Bonding Equipment Operator Relationship Specialty Start Date End Date Alison Perez MD [address] [employer] [address] PCP - General Internal Medicine 08/31/22 Zenon Alexander MD PhD [address] [facility] [address] [place] [address] Consulting Physician Neurology 09/18/22 Terrence Avalos MD [address] [facility] [address] [place] [address] Consulting Physician Infectious Diseases 09/18/22
== END 2024-07-29 14:03 | disposition home or self-care (01) ==
LOC: ANHIMG 14:03
PROVIDERS: PCP Internal Medicine; Visit Provider Internal Medicine
DX: Z78.0 Asymptomatic menopausal state (principal); M85.88 Other specified disorders of bone density and structure, other site; M85.852 Other specified disorders of bone density and structure, left thigh; M85.851 Other specified disorders of bone density and structure, right thigh
CPT/HCPCS: 77080

== ENCOUNTER 2024-08-29 15:29 | Outpatient (CLI) | payer MEDICARE, SELFPAY ==
--- NOTE | ~2024-08-29 | US_ITS ---
RIGHT LOWER EXTREMITY VENOUS ULTRASOUND Ordering provider: Alison Perez MD History: . RT LEG EDEMA . Comparison: None. FINDINGS: --COMMON FEMORAL: Patent and free of thrombus. Normal compressibility, phasic flow and augmentation. --PROXIMAL SUPERFICIAL FEMORAL: Patent and free of thrombus. Normal compressibility, phasic flow and augmentation. --DISTAL SUPERFICIAL FEMORAL: Patent and free of thrombus. Normal compressibility, phasic flow and au gmentation. --POPLITEAL: Patent and free of thrombus. Normal compressibility, phasic flow and augmentation. --POSTERIOR TIBIAL: Patent and free of thrombus. Normal compressibility, phasic flow and augmentation . IMPRESSION: Negative right lower extremity venous US. No deep vein thrombosis. Reviewed, dictated and finalized at location A.
--- OUTSIDE RECORDS SUMMARY | 2024-08-29 15:32 | XMS_ITS ---
Author Organization [facility] delisa Address [address] [facility] [address], [place] [address] Care Team Providers Care Territory Sales Professional Name Role Phone Brittney Benedict Unavailable [phone] zzzzMigration, zzzzProvider Unavailable Unav ailable REASON FOR VISIT [facility] Encounters Encounter Location Date Provider Diagnosis [facility] [address] [facility] [address], [place] [address] 03/24/2023 zzzzProvider zzzzMigration Plan Of Treatment Medication Medication Name Sig Start Date Stop Date Notes Medrol 4 MG take as directed for 6 days Oral for 6 022 03/22/2022 predniSONE 10 MG take 1 tablet (10 mg ) by oral route once daily for 7 days Oral 1 for 7 11/22/2021 11/29/2021 Progress Notes * Ely LEWISLisetteOB:[birth year] (69 yo F)Acc No.[id number]:03/24/2023 Patient: Toña QUIÑONEZ :1955 A ge:67 Y S ex:Female Address:[address] [place] [address], [address] * Refills Stop Medrol Tablet Therapy Pack, [...] Plan: * Treatment: * Procedure Codes: * true * Date: Generated for Lindsey montes/Aaliyah/Mychal on: 0 08/29/2024 03:32 PM CDT
--- OUTSIDE RECORDS SUMMARY | 2024-08-29 15:32 | XMS_ITS ---
Author Organization [facility] delisa Address [address] [facility] [address] [place] [address] Care Team Providers Care Cvicu Rn Name Role Phone Brittney Benedict Unavailable [phone] zzzzMigration, zzzzProvider Unavailable Unav ailable Allergies Allergen [...] Encounter Location Date Provider Diagnosis [facility] [address] [facility] [address] [place] [address] 03/25/2023 zzzzProvider zzzzMigration Plan Of Treatment No Information Progress Notes * Ely LEWISneDOB:[birth year] (69 yo F)Acc No.[id number]:03/25/2023 Patient: Toña QUIÑONEZ :1955 A ge:67 Y S ex:Female Address:[address] [place], [place] [id number] Subjective: * Chief Complaints: * E MR-Cristobal * Medical History: * Surgical History: T ubal ligation; 1061-79-70Tdpnekjtnc; 8947-34-69repyp surgery; 3405-36-04Ejbmkeytldk Iodine Thyroid; 0219-34-41Czbf surgery; 2898-01-78Jtdnnpk cyst removal; 2021-11-17 * Hospitalization/Major Diagno stic [...]
--- OUTSIDE RECORDS SUMMARY | 2024-08-29 15:32 | XMS_ITS | Encounter Summary ---
Author Organization [facility] Address [address] [facility] [address] [place] [address] Phone Care Team Providers Care Machine Compositor Name Role Phone Alison Perez MD Primary Care Provider [phone] Zenon Alexander MD PhD Unavailable Terrence Avalos MD Unavailable HowellAurora moreno LOADING MACHINE OPERATOR Unavailable Encounter Details Date Type Department Care Team (Late st Contact Info) Description 08/17/2024 Ophth Exam [facility] Ophthalmology [address] [place] [address] 1st [place] [address] Kori Woodward MD [address] [address] Social History Tobacco Use Types Packs/Day Years [...] often do you attend chur ch or mosque services? More than 4 times per year 08/31/2022 Do you belong to any clubs o r organizations such as bahai groups, unions, fraternal or athletic groups, or [...] making you feel afraid or unsafe? Denies 08/19/2024 Comments No Sex and Gender Information Value Date Recorded Sex Assigned at Not on file Legal Sex Female 11:45 AM MANAGER OF PRODUCTION Gender Identity Female 02/08/2019 7:49 PM CDT Sexual Orientation Straight 02/08/2019 7: 49 PM CDT documented as of this encounter Plan of Treatment Not on file documented as of this encounter Visit Diagnoses Not on filedocumented in this encounter Additional Health Concerns Infection Onset Date Last Indicated Resolved Time COVID: Suspected 08/17/2024 08/17/2024 08/17/2024 3:29 PM CDT documented as of this encounter Eye Exam Visual Acuity (Snellen - Linear) Right eye Left eye Near cc 20/200-2 phni 20/20 Tonometry (Tonopen, 4:52 PM) Right eye Left eye Pressure 13 11 Pupils Dark Light Shape React APD Right eye 3.5 3 Round Sluggish ?APD Left eye 3 2 Round Brisk None Visual Schuster Right eye Left eye Restrictions Partial outer superior nasal def iciency CF OS, finger wag OD Extraocular Movement Right eye Left eye Full Full Dilation Both eyes: 1.0% Mydriacyl, 2 .5% Phenylephrine @ 4:53 PM Color Right eye Left eye Ishihara No CP 11/12 External Exam Right eye Left eye External Normal Normal Slit Lamp Exam Right eye Left eye Lids/Lashes Normal Normal Conjunctiva/Sclera White and quiet White and alphonso et Cornea SPEE Clear Anterior Chamber Deep and quiet Deep and quiet Iris Round and reactive Round and lu ctive Lens PCIOL NS Anterior Vitreous syneresis syneresis Fundus Exam Right eye Left eye Disc pallorous trace disc edema , with prominent superior elevation and surrounding hemorrhages and drusen C/D Ratio 0.3 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 Periphery Normal multiple small I RH and DBH Care Teams Machine Compositor Relationship Specialty Start Date End Date Alison Perez MD [address] [place] [address] PCP - General Internal Medicine 08/31/22 Zenon Alexander MD PhD [address] [facility] [address] [place] [address] Consulting Physician Neurology 09/18/22 Terrence Avalos MD [address] [place] [address] Consulting Physician Infectious Diseases 09/18/22 Aurora Howell SLP [address] [facility] [address] [place] [address] Speech Language Pathologist Speech Therapy 08/01/24 documented as of this encounter
--- OUTSIDE RECORDS SUMMARY | 2024-08-29 15:32 | XMS_ITS | Encounter Summary ---
Author Organization [facility] Address [address] [facility] [address] [place] [address] Phone Care Team Providers Care Supervisor Dried Yeast Name Role Phone Alison Perez MD Primary Care Provider [phone]- [phone] Zenon Alexander MD PhD Unavailable Terrence Avalos MD Unavailable HowellAurora moreno SAW SETTER Unavailable Encounter Details Date Type Department Care Team (Late st Contact Info) Description 08/18/2024 Ophth Exam [facility] Ophthalmology [address] [place] [address] 1st [place] [address] Mireille Pineda MD [address] [address] Social History Tobacco Use Types [...] often do you attend chur ch or orthodox services? More than 4 times per year 08/31/2022 Do you belong to any clubs o r organizations such as christian groups, unions, fraNewshubby or athletic groups, or school groups? 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 Gender Identity Female 02/08/2019 7:49 PM CDT Sexual Orientation Straight 02/08/2019 7: 49 PM CDT documented as of this encounter Plan of Treatment Not on file documented as of this encounter Visit Diagnoses Not on filedocumented in this encounter Eye Exam Visual Acuity (Snellen - Linear) Right eye Left eye Near cc at least 20/400-1 20/25+1 Tonometry (Tonopen, 1:34 PM) Right eye Left eye Pressure 16 14 Pupils Dark Light Shape React APD Right eye 3.5 3 Round Sluggish appears + Left eye 3.5 2.5 Round Brisk None Visual Schuster Right eye Left eye Full Restrictions Total superior nasal deficiency; Partial outer inferior nasal deficiency Extraocular Movement Right eye Left eye Full Full Dilation #1 Both eyes: 1.0% Mydriacyl , 2.5% Phenylephrine @ 12:32 PM #2 Both eyes: 1.0% Mydriacyl , 2.5% Phenylephrine @ 5:32 PM External Exam Right eye Left eye External Normal Normal Slit Lamp Exam Right eye Left eye Lids/Lashes mild edema/blepharitis mild regina a/blepharitis Conjunctiva/Sclera 1+ injection trace injecti on, inferior mild chemosis Cornea SPEE Clear Anterior Chamber Deep and [...] small I RH and DBH Care Teams Supervisor Dried Yeast Relationship Specialty Start Date End Date Alison Perez MD [address] [facility] [place] [address] PCP - General Internal Medicine 08/31/22 Zenon Alexander MD PhD [address] [place] [address] Consulting Physician Neurology 09/18/22 Terrence Avalos MD [address] [place] [address] Consulting Physician Infectious Diseases 09/18/22 Aurora Howell SLP [facility][note 3] [address] [facility] [address] [facility] [address] [place] [address] Speech Language Pathologist Speech Therapy 08/01/24 documented as of this encounter
--- OUTSIDE RECORDS SUMMARY | 2024-08-29 15:32 | XMS_ITS | Clinical Summary ---
Author Organization [facility] Address [address] [place] [address] Care Team Providers Care Precision Crop Manager Name Role Phone Unavailable Primary Care Provider [...]
--- OUTSIDE RECORDS SUMMARY | 2024-08-29 15:33 | XMS_ITS | Clinical Summary ---
Author Organization [facility] Address [address] [place] [address] Care Team Providers Care Gum Machine Filler Name Role Phone A, Unknown Practice Primary Care Provider [phone] Source Comments [facility],non-owned Affiliates and Associated Physician Practices is amultiple site organization consisting of ambulatory clinics and hospital sitesin [place], [place], [place] and [place]. This disclosure is being madepursuant to the Care Everywhere program and may not contain all information available regarding this patient. Last updated 18.[facility] Allergies Active Allergy Reactions Criticality Noted Date [...] Recorded Patient Health Questionnaire-2 Score 0 05/07/2023 [facility] of Occupat ional Health - Occupational Stress [...] place to sleep or slept in a correction (including now)? No 04/09/2023 Sex and Gender Information Value Date Recorded Sex Assigned at Not on file Gender Identity Not on file Sexual Orientation Not on file Last Filed Vital Signs Vital Sign Reading Time Taken Comments Blood Pressure 148/90 08/17/2023 10:53 AM CDT Pulse 66 08/17/2023 10:53 AM CDT Temperature 36.5 C (97.7 F) 05/07/2023 12:09 PM WETLANDS TECHNICIAN Respiratory Rate 16 05/06/2023 4:17 PM WETLANDS TECHNICIAN Oxygen Saturation 99% 08/17/2023 10:53 AM CDT Inhaled Oxygen Concentration 21% 05/06/2023 7 :01 AM WETLANDS TECHNICIAN Weight 76.2 kg (168 lb 1.6 oz) 08/17/2023 10:53 AM CDT Height 177.8 cm (5' 10 ) 04/24/2023 10:52 AM WETLANDS TECHNICIAN Body Mass Index 24.12 04/24/2023 10:52 AM WETLANDS TECHNICIAN Plan of Treatment Health Maintenance Due Date Last Done Comments BONE DENSITY TESTING 1954 COLON MONITORING 1954 COLONOSCOPY - COLON CA SCREENING 1954 CT COLONOGRAPHY - COLON CA SCREENING 1954 FIT - COLON CA SCREENING 1954 FLEX SIG - COLON CA SCREENING 1954 MAMMOGRAM 1954 DTAP/TDAP/TD VACCINES (1 - Tdap) 1973 PNEUMOCOCCAL VACCINE 50+ (1 of 1 - PCV) 2004 ZOSTER VACCINE (2 of 2) 05/06/2020 03/11/2020 COVID-19 VACCINE (5 - season) 2024 03/15/2022, 03/30/2021, 09/02/2020, Additional history exists INFLUENZA VACCINE (#1) 2024 , 03/23/2021, 03/11/2020 DEPRESSION SCREENING 06/04/2024 04/08/2023 MEDICARE AWV CALENDAR YEAR 2024 COLOGUARD (AGES 45-75) - COLON CA SCREENING 11/17/2024 11/17/2021 Colorectal Cancer Screening 11/17/2024 Respiratory Syncytial Virus (RSV) Vaccine Pt: or over 60 yrs (1 - 1-dose 75+ series) 2029 HEPATITIS C SCREENING Completed 04/18/2023, 023 HEPATITIS B VACCINE Aged Out No longe r eligible based on patient's age to complete this topic HIB VACCINE Aged Out No longer eligi ble based on patient's age to complete this topic HPV VACCINE Aged Out No longer eligi ble based on patient's age to complete this topic MENINGOCOCCAL (Group B) VACCINE SHARED DECISION-MAKING Aged Out No longer eligible based on patient's age to complete this topic MENINGOCOCCAL GROUPS A/C/Y/W VACCINE Aged Out No longer eligible based on patient's age to complete this topic Procedures Procedure Name Priority Date/Time Associated Diagnosis Comments HEPATITIS C AB SCREEN RFLX NAAT QUANT Routine 04/18/2023 2:22 PM WETLANDS TECHNICIAN from Last 3 Months or Most Recently Relevant to Health Maintenance Results * HEPATITIS C AB SCREEN RFLX NAAT QUANT (04/18/2023 2:22 PM WETLANDS TECHNICIAN) Hepatitis C Antibody Non-react denny Non-reac tive 04/18/2023 3:57 PM WETLANDS TECHNICIAN [facility] Comment:Hepatitis C Antibody screen indicates no serologic evidence of past or current infection with Hepatitis C Virus. Patients with unexplained liver disease who are immunocompromised or suspected of having acute Hepatitis C infection may benefit from Nucleic Acid Test (BRYANT) for Hepatitis C Viral RNA to confirm Hepatitis C status. Blood BLOOD SPECIMEN / Unknown Venipuncture / Unknown 04/18/2023 2:22 PM WETLANDS TECHNICIAN 04/18/2023 2:25 PM WETLANDS TECHNICIAN Margot Chamorro MD LAB - CHEMISTRY [facility] Organization Address City/State/ZIP Co de Phone Number [facility] [address] [place] [address] [phone] from Last 3 Months or Most Recently Relevant to Health Maintenance Advance Directives * Full Code (Latest Code Status on File) Date Activated Date Inactivated Comments 05/07/2023 6:21 PM 05/16/2023 12:21 PM * Full Code Date Activated Date Inactivated Comments 04/09/2023 3:44 AM 05/07/2023 5:57 PM Care Teams Gum Machine Filler Relationship Specialty Start Date End Date A, Unknown Practice [address] [place] [id number] PCP - General 04/06/23
--- OUTSIDE RECORDS SUMMARY | 2024-08-29 15:33 | XMS_ITS | Encounter Summary ---
Author Organization [facility] Address [address] [facility] [place] [address] Care Team Providers Care Network Diagnostic Support Specialist Name Role Phone A, Unknown Practice Primary Care Provider [phone] Encounter Details Date Type Department Care Team (Late st Contact Info) Description 04/10/2023 Ophth Exam [facility] - Ophthalmology [address] [place] [address] Elmo Vasquez MD [address] [place] [address] Social History Tobacco Use Types [...] and heating? Not hard at all 04/09/2023 [facility] of Occupat ional Health - Occupational Stress [...] on filedocumented in this encounter Care Teams Network Diagnostic Support Specialist Relationship Specialty Start Date End Date A, Unknown Practice [address] [place] [address] PCP - General 04/06/23 documented as of this encounter
--- OUTSIDE RECORDS SUMMARY | 2024-08-29 15:33 | XMS_ITS ---
* Respiratory pathogen panel Nasopharyngeal (08/17/2024 2:02 PM CDT) [facility] Influenza A RNA Not Detected Not Detected Influenza B RNA Not Detected Not Detected [facility] RSV RNA Not Detected Not Detected [facility] COVID-19 RNA Not Detected Not Detected [facility] Coronavirus 229E RNA Not Detected Not Detected [facility] Coronavirus HKU1 RNA Not Detected Not Detected [facility] Coronavirus NL63 RNA Not Detected Not Detected [facility] Coronavirus OC43 RNA Not Detected Not Detected [facility] Adenovirus DNA Not Detected Not Detected [facility] Metapneumovirus RNA Not Detected Not Detected [facility] Rhinovirus/Enterov irus RNA Not Detected Not Detected [facility] Parainfluenza 1 RNA Not Detected Not Detected [facility] Parainfluenza 2 RNA Not Detected Not Detected [facility] Parainfluenza 3 RNA Not Detected Not Detected [facility] Parainfluenza 4 RNA Not Detected Not Detected [facility] B. pertussis DNA Not Detected Not Detected [facility] B. parapertussis DNA Not Detected Not Detected [facility] C. pneumoniae DNA Not Detected Not Detected [facility] M. pneumoniae DNA Not Detected Not Detected [facility] Nasopharyngeal 08/17/2024 2: 02 PM CDT 08/17/2024 2:24 PM CDT Narrative [facility] - 08/17/2024 3:27 PM CDT Is the Patient experiencing symptoms consistent with COVID?->Yes Surveillance testing for transplant patient?->No Interpretive Data The [employer] FilmArray Respiratory Panel (RP2.1) assay is a multiplexed real-time PCR based nucleic acid test capable of simultaneous qualitative detection and identification of multiple respiratory viral and bacterial nucleic acids, including SARS Coronavirus 2 (the causative agent of COVID-19). The following bacteria, viruses and virus subtypes can be identified using the FilmArray RP2.1 assay: Bordetella pertussis, Bordetella parapertussis, Chlamydia pneumoniae, Mycoplasma pneumoniae, Adenovirus, SARS Coronavirus 2, seasonal coronaviruses (Coronavirus HKU1, Coronavirus NL63, Coronavirus 229E, and Coronavirus OC43), Influenza A, Influenza A subtype H1, Influenza A subtype H3, Influenza A subtype 2009 H1, Influenza B, Metapneumovirus, Parainfluenza 1, Parainfluenza 2, Parainfluenza 3, Parainfluenza 4, RSV, Rhinovirus/Enterovirus. Due to the genetic similarity between human Rhinovirus and Enterovirus, the FilmArray RP2.1 assay cannot reliably differentiate them. Coronavirus OC43 may cross-react with some isolates of Coronavirus HKU1. A dual positive result may be due to cross-reactivity or may indicate a co- infection. The detection and identification of specific viral and bacterial nucleic acids from individuals exhibiting signs and symptoms of a respiratory infection aids in the diagnosis of respiratory infection if used in conjunction with other clinical and epidemiological information. The results of this test should not be used as the sole basis for diagnosis, treatment, or other management decisions. Negative results in the setting of a respiratory illness may be due to infection with pathogens that are not detected by this test. Positive results do not rule out infection/co-infection with other organisms. The agent(s) detected by the FilmArray RP2.1 may not be the definite cause of disease. Additional testing (lab, imaging, etc.) may be necessary when evaluating a patient with possible respiratory tract infection. The FilmArray RP2.1 assay has FDA clearance for testing of COAL CARRIER swabs. The performance of additional specimen types has been assessed by the performing laboratory. The performance characteristics of this assay have been determined by [facility] Molecular Infectious Disease Laboratory. Current interpretive data was last revised on 22. Malika Mishra MD LAB MICROBIOLOGY - GENERAL O RDERABLES Final Result [facility] [place] [address] * CTA Head Neck W WO Contrast (08/17/2024 1:06 PM CDT) Anatomical Region Laterality Modality Head and Neck N/A Computed Tomogra phy 08/17/2024 1:53 PM CDT Impressions 08/17/2024 2:04 PM CDT 1. No acute intracranial process. Stable left temporal lobe cystic encephalomalacia. 2. No high-grade narrowing or obstruction of the intracranial vasculature. The previous MRI demonstrated intracranial arterial wall hyperenhancement is not appreciated by CTA. If clinical concern exists for ongoing vasculitis, an MRA can be performed. 3. New paranasal sinus opacification and bilateral mastoid effusions. Polypoid density along the anterior cartilaginous nasal septum. Direct visualization is recommended. Dictated by: Wyatt Nicole MD, Ph.D The radiology attending physician has personally reviewed this study, and had reviewed and/or edited this written report and agrees with it. Electronically signed by: Jazmyne Holley MD Narrative 08/17/2024 2:04 PM CDT EXAMINATION: 1. Computed tomography angiography (CTA) of the head without and with contrast 2. 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 Additional history of HSV encephalitis. TECHNIQUE: CT of the head was performed with images acquired from skull base to vertex without intravenous contrast. Computed tomographic angiography was obtained from the aortic arch to the vertex following the uneventful administration of intravenous contrast. 3D images of the CTA were generated on a dedicated workstation/rn ante partum. Contrast information: 69 mL Optiray-350 IV COMPARISON: MRA 07/08/2024, 01/25/2024. CTA head 04/09/2023. FINDINGS: HEAD: Unchanged cystic encephalomalacia of the left temporal lobe. There is no acute intracranial hemorrhage. Stable ex vacuo dilation of the left temporal horn. No mass effect or midline shift is present. The kim-white matter differentiation is normal. Unchanged bilateral basal ganglia calcifications. The visualized portions of the orbits are normal, with the exception of a left lens replacement. Bilateral mastoid effusions. Bilateral maxillary sinus mucosal thickening, ethmoid air cell opacification. Polypoid density along the anterior cartilaginous nasal septum. No fractures are identified. NECK: Scattered subcentimeter lymph nodes are seen in the neck. None are pathologically enlarged. The muscles of the neck are normal. Fascial planes are preserved and the deep spaces of the neck are normal. The visualized airway is widely patent. The base of the skull and the temporal bones are normal. Limited views of the brain including the cerebellum and brainstem are normal. The visualized portions of the orbits are normal. The spinal canal is normal in caliber. Intervertebral disk heights are normal. Neural foramina are normal. Limited examination of the superior thorax shows no pulmonary infiltrate, suspicious nodules, or pleural effusions. CTA: The visualized aortic arch appears normal with normal configuration of the great vessels. The innominate artery and both subclavian arteries are normal in course and caliber. The common carotid arteries are normal in course and caliber with normal carotid bifurcations bilaterally, with no high-grade stenosis. The course and caliber of the internal carotid arteries in the neck are normal. No areas of atherosclerotic narrowing or filling defects are identified. The visualized course and caliber of the internal carotid arteries in the head are normal. No areas of atherosclerotic narrowing or filling defects are identified. The dnnszk-ry-Lysqmv is complete. The anterior and middle cerebral arteries are normal. The vertebral arteries are codominant. The basilar artery is normal. origin of the posterior cerebral arteries. The posterior cerebral arteries are otherwise normal. There is no aneurysm or vascular malformation identified. Procedure Note Jazmyne Holley MD PhD - 08/17/2024 EXAMINATION: 1. Computed tomography angiography (CTA) of the head without and with contrast 2. 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 Additional history of HSV encephalitis. TECHNIQUE: CT of the head was performed with images acquired from skull base to vertex without intravenous contrast. Computed tomographic angiography was obtained from the aortic arch to the vertex following the uneventful administration of intravenous contrast. 3D images of the CTA were generated on a dedicated workstation/rn ante partum. Contrast information: 69 mL Optiray-350 IV COMPARISON: MRA 07/08/2024, 01/25/2024. CTA head 04/09/2023. FINDINGS: HEAD: Unchanged cystic encephalomalacia of the left temporal lobe. There is no acute intracranial hemorrhage. Stable ex vacuo dilation of the left temporal horn. No mass effect or midline shift is present. The kim-white matter differentiation is normal. Unchanged bilateral basal ganglia calcifications. The visualized portions of the orbits are normal, with the exception of a left lens replacement. Bilateral mastoid effusions. Bilateral maxillary sinus mucosal thickening, ethmoid air cell opacification. Polypoid density along the anterior cartilaginous nasal septum. No fractures are identified. NECK: Scattered subcentimeter lymph nodes are seen in the neck. None are pathologically enlarged. The muscles of the neck are normal. Fascial planes are preserved and the deep spaces of the neck are normal. The visualized airway is widely patent. The base of the skull and the temporal bones are normal. Limited views of the brain including the cerebellum and brainstem are normal. The visualized portions of the orbits are normal. The spinal canal is normal in caliber. Intervertebral disk heights are normal. Neural foramina are normal. Limited examination of the superior thorax shows no pulmonary infiltrate, suspicious nodules, or pleural effusions. CTA: The visualized aortic arch appears normal with normal configuration of the great vessels. The innominate artery and both subclavian arteries are normal in course and caliber. The common carotid arteries are normal in course and caliber with normal carotid bifurcations bilaterally, with no high-grade stenosis. The course and caliber of the internal carotid arteries in the neck are normal. No areas of atherosclerotic narrowing or filling defects are identified. The visualized course and caliber of the internal carotid arteries in the head are normal. No areas of atherosclerotic narrowing or filling defects are identified. The qhlpsl-ck-Inkaxu is complete. The anterior and middle cerebral arteries are normal. The vertebral arteries are codominant. The basilar artery is normal. origin of the posterior cerebral arteries. The posterior cerebral arteries are otherwise normal. There is no aneurysm or vascular malformation identified. IMPRESSION: 1. No acute intracranial process. Stable left temporal lobe cystic encephalomalacia. 2. No high-grade narrowing or obstruction of the intracranial vasculature. The previous MRI demonstrated intracranial arterial wall hyperenhancement is not appreciated by CTA. If clinical concern exists for ongoing vasculitis, an MRA can be performed. 3. New paranasal sinus opacification and bilateral mastoid effusions. Polypoid density along the anterior cartilaginous nasal septum. Direct visualization is recommended. Dictated by: Wyatt Nicole MD, Ph.D The radiology attending physician has personally reviewed this study, and had reviewed and/or edited this written report and agrees with it. Electronically signed by: Jazmyne Holley MD Tommie Mccann MD IMG CT PROCEDURES Final Resul t * POCT creatinine (08/17/2024 12:29 PM CDT) Creatinine POC 0.8 0.6 - 1.1 mg/dL Blood 08/17/2024 12:2 9 PM CDT 08/17/2024 12:29 PM CDT us Tommie Mccann MD LAB POCT ORDERABLES - DEVICE Final Result Performing Organization Address City/[facility] Co de Phone Number [facility] Department [place] [address] * eGFR (08/17/2024 12:18 PM CDT) eGFR 84 >=60 mL/min/1. 73 m2 Comment: Interpretive Data Reference Interval Normal >/= 90 mL/min/1.73m2 Mildly decreased* 60 - 89 mL/min/1.73m2 Mildly to moderately decreased 45 - 59 mL/min/1.73m2 Moderately to severely decreased 30 - 44 mL/min/1.73m2 Severely decreased 15 - 29 mL/min/1.73m2 Kidney Failure < 15 mL/min/1.73m2 *Relative to young adult level Estimated glomerular filtration rate is determined by the 2020 CKD-EPI equation recommended by the National Kidney [employer] (A Unifying Approach to GFR Estimation: Recommendations of the NKF-ASK Task Force on Reassessing the Inclusion of Race in Diagnosing Kidney Disease, JASN 2020). The CKD-EPI equation should not be used for patients with unstable renal function and has not been validated in children and those over 70. Current interpretive data was last reviewed 2021. Blood 08/17/2024 12:1 8 PM CDT 08/17/2024 12:35 PM CDT us Malika Mishra MD LAB BLOOD ORDERABLES Final R esult Performing Organization Address City/[facility]/ZIP Co de Phone Number [facility] Department [place] [address] * (ABNORMAL) Differential, auto (08/17/2024 12:18 PM CDT) Neutrophil abs 5.0 1.5 - 6.5 K/cumm Imm gran abs 0.0 0.0 - 0.1 K/cumm [facility] Lymphocyte abs 1.1 0.8 - 3.3 K/cumm [facility] Monocyte abs 1.0(H) 0.2 - 0.8 K/cumm [facility] Eosinophil abs 0.1 0.0 - 0.5 K/cumm [facility] Basophil abs 0.1 0.0 - 0.1 K/cumm [facility] Neutrophil pct 68.9 % [facility] Comment: Interpretive Data Percent cell count reference ranges are not reported, since discordance with absolute values may lead to misinterpretation of CBC data. Current Interpretive Data was last revised on 2017. Imm gran pct 0.6 % [facility] Comment: Interpretive Data Percent cell count reference ranges are not reported, since discordance with absolute values may lead to misinterpretation of CBC data. Current Interpretive Data was last revised on 2017. Lymphocyte pct 15.4 % [facility] Comment: Interpretive Data Percent cell count reference ranges are not reported, since discordance with absolute values may lead to misinterpretation of CBC data. Current Interpretive Data was last revised on 2017. Monocyte pct 13.3 % [facility] Comment: Interpretive Data Percent cell count reference ranges are not reported, since discordance with absolute values may lead to misinterpretation of CBC data. Current Interpretive Data was last revised on 2017. Eosinophil pct 1.1 % [facility] Comment: Interpretive Data Percent cell count reference ranges are not reported, since discordance with absolute values may lead to misinterpretation of CBC data. Current Interpretive Data was last revised on 2017. Basophil pct 0.7 % [facility] Comment: Interpretive Data Percent cell count reference ranges are not reported, since discordance with absolute values may lead to misinterpretation of CBC data. Current Interpretive Data was last revised on 2017. Blood 08/17/2024 12:1 8 PM CDT 08/17/2024 12:35 PM CDT us Malika Mishra MD LAB BLOOD ORDERABLES Final R esult [facility] Department [place] [address] * (ABNORMAL) CBC with auto differential (08/17/2024 12:18 PM CDT) [facility] WBC 7.2 3.8 - 9.9 K/cumm Hgb 11.2(L) 11.9 - 15.5 g/dL [facility] Hct 33.2(L) 35.6 - 45.5 % [facility] Plt 187 150 - 400 K/cumm [facility] MPV 10.0 9.1 - 12.3 fL [facility] RBC 3.45(L) 3.90 - 5.20 M/cumm [facility] MCV 96.2 81.3 - 96.4 fL [facility] MCH 32.5 27.1 - 33.3 pg [facility] MCHC 33.7 32.3 - 35.7 g/dL [facility] RDW CV 14.8 11.1 - 14.9 % [facility] RDW SD 51.9(H) 35.7 - 48.1 fL [facility] NRBC abs 0.00 0.00 - 0.01 K/cumm [facility] Blood 08/17/2024 12:1 8 PM CDT 08/17/2024 12:35 PM CDT us Malika Mishra MD LAB BLOOD ORDERABLES Final R esult [facility] Department [place] [address] * aPTT (08/17/2024 12:18 PM CDT) [facility] aPTT 32 28 - 38 sec Comment: Interpretive Data Heparin therapeutic range: 66.0 - 100.0 seconds. Range based on correlation with therapeutic heparin activity range of 0.3 - 0.7 Units/mL. Current interpretive data was last revised on 2023. Blood 08/17/2024 12:1 8 PM CDT 08/17/2024 12:44 PM CDT us Malika Mishra MD LAB BLOOD ORDERABLES Final R esult Performing Organization Address City/[facility] Co de Phone Number [facility] [place] [address] * (ABNORMAL) Erythrocyte sedimentation rate (08/17/2024 12:18 PM CDT) Erythrocyte sedimentation rate 61(H) 1 - 30 mm/hr Blood 08/17/2024 12:1 8 PM CDT 08/17/2024 12:35 PM CDT Malika Mishra MD LAB BLOOD ORDERABLES Final R esult Performing Organization Address [facility] [place] [address] * Protime-INR (08/17/2024 12:18 PM CDT) PT 13.0 9.7 - 13.0 sec INR 1.20 0.90 - 1.20 [facility] Comment: Interpretive data Oral anticoagulant therapeutic ranges: Venous thromboembolism prophylaxis or treatment: 2.0-3.0 CARDIOLOGY Standard range: 2.0-3.0 High-intensity range: 2.5-3.5 Refer to indication-specific guidelines for appropriate target ranges for prosthetic heart valve replacement. Current interpretive data was last revised on 2019. Blood 08/17/2024 12:1 8 PM CDT 08/17/2024 12:44 PM CDT Malika Mishra MD LAB BLOOD ORDERABLES Final R esult Performing Organization Address [facility] [place] [address] * (ABNORMAL) CRP (acute phase) (08/17/2024 12:18 PM CDT) Pathologist [facility] CRP 124.6(H) <=10.0 mg/L Blood 08/17/2024 12:1 8 PM CDT 08/17/2024 12:35 PM CDT us Malika Mishra MD LAB BLOOD ORDERABLES Final R esult [facility] Department [place] [address] * (ABNORMAL) Comprehensive metabolic panel (08/17/2024 12:18 PM CDT) Pathologist [facility] Sodium 134(L) 135 - 145 mmol/L Potassium, pl 3.9 3.3 - 4.9 mmol/L [facility] Comment:Hemolyzed; Potassium value may be falsely elevated by as much as 0.3-0.5 mmol/L. Suggest redraw and reanalysis. Chloride 99 97 - 110 mmol/L [facility] CO2 26 22 - 32 mmol/L [facility] Anion gap 9 2 - 15 mmol/L [facility] BUN 7 6 - 25 mg/dL [facility] Creatinine 0.76 0.60 - 1.10 mg/dL [facility] Glucose 95 70 - 199 mg/dL [facility] Comment: Interpretive Data Fasting glucose >/= 126 mg/dl is diagnostic for diabetes. Fasting is defined as no caloric intake for at least 8 hours. Fasting glucose between 100 mg/dl to 125 mg/dl is diagnostic of prediabetes. In a patient with classic symptoms of hyperglycemia or hyperglycemic crisis, a random glucose >/= 200 mg/dl is diagnostic for diabetes. In the absence of unequivocal hyperglycemia, results should be confirmed by repeat testing. The classification and Diagnosis of Diabetes Diabetes Care 202; 46: S19-S40. Current interpretive data was last revised 2022. Calcium 9.3 8.5 - 10.3 mg/dL [facility] Bilirubin, total 0.4 0.1 - 1.2 mg/dL [facility] Protein, pl 8.2 6.5 - 8.5 g/dL [facility] Albumin 3.8 3.5 - 5.0 g/dL [facility] Alk phos 100 40 - 130 Units/L [facility] ALT 19 7 - 45 Units/L [facility] AST 31 10 - 45 Units/L [facility] Comment:Hemolyzed; result ma y be falsely elevated Blood 08/17/2024 12:1 8 PM CDT 08/17/2024 12:35 PM CDT Malika Mishra MD LAB BLOOD ORDERABLES Final R esult [facility] [place] [address] * Thiopurine metabolites (07/10/2024 9:42 AM PEARL MAKER) 6-TG, bld 281 235 - 450 [place] ref Lab Comment:Increased possibilit y of response; optimal dosing. 6-MMP, bld <406 < or = 5700 [facility] Comment: Result not quantifiable; below the limit of quantitation. Decreased risk of hepatotoxicity. ADDITIONAL INFORMATION Testing performed by Liquid Chromatography-Tandem Mass Spectrometry (LC-MS/MS) This test was developed and its performance characteristics determined by [facility] in a manner consistent with CLIA requirements. This test has not been cleared or approved by the U.S. Food and Drug Administration. Test Performed by: [id number] [place] [address] Software Quality Assurance Analyst: Dawit Avendano Ph.D.; CLIA# [id number] Blood 07/10/2024 9:42 AM PEARL MAKER 07/10/2024 12:32 PM PEARL MAKER us Hardy Dash MD LAB BL OOD ORDERABLES Final Result [facility] Department [place] [employer] [place] [address] [place] ref Lab * (ABNORMAL) CBC with auto differential (07/10/2024 9:42 AM PEARL MAKER) White Blood Count 3.7 3.6 - 11.2 [...] [facility] Blood 07/10/2024 9:42 AM PEARL MAKER 07/10/2024 10:51 AM PEARL MAKER Hardy Dash MD LAB BL OOD ORDERABLES Final Result [facility] * (ABNORMAL) Erythrocyte sedimentation rate (07/10/2024 9:42 AM PEARL MAKER) Erythrocyte sedimentation rate 42(H) 1 - 30 mm/hr Blood 07/10/2024 9:42 AM PEARL MAKER 07/10/2024 12:09 PM PEARL MAKER Hardy Dash MD LAB BL OOD ORDERABLES Final Result [facility] [place] [address] * (ABNORMAL) CRP (acute phase) (07/10/2024 9:42 AM PEARL MAKER) C-Reactive Protein, Acute 6.1(H) <5.0 mg/L [facility] Blood 07/10/2024 9:42 AM PEARL MAKER 07/10/2024 10:51 AM PEARL MAKER Hardy Dash MD LAB BL OOD ORDERABLES Final Result Performing Organization Address City/[facility]/ZIP Co de Phone Number [facility] * (ABNORMAL) Comprehensive metabolic panel (07/10/2024 9:42 AM PEARL MAKER) Total Protein 8.1 6.1 - 8.4 g/dL [...] [facility] Blood 07/10/2024 9:42 AM PEARL MAKER 07/10/2024 10:51 AM PEARL MAKER Hardy Dash MD LAB BL OOD ORDERABLES Final Result [facility] * MRI MRA Vessel Wall Imaging W WO Contrast (07/08/2024 12:12 PM PEARL MAKER) Anatomical Region Laterality Modality Head and Neck N/A Magnetic Resonan ce 07/08/2024 4:14 PM PEARL MAKER Impressions 07/08/2024 5:13 PM PEARL MAKER 1. Vessel wall imaging demonstrates enhancement in [...] Maureen Arenas M.D. Narrative 07/08/2024 5:13 PM PEARL MAKER EXAMINATION: 1. Magnetic resonance imaging (MRI) of the brain and brainstem without and with contrast 2. Magnetic resonance angiography (MRA) of the tyvugo-ok-Frhiwr without and with contrast. TWIST sequences of [...] protocol. 2. Magnetic resonance angiography of the ybervl-oq-Jnyowl was performed using a separate data acquisition with a non-contrast qyhk-ee-krsaxo technique and a post-contrast technique to produce [...] no additional areas of vascular narrowing. The zknngu-ab-Xkepmp is complete. Bilateral posterior cerebral artery origins. [...] 2. Magnetic resonance angiography (MRA) of the mpkinq-uw-Edkeuk without and with contrast. TWIST sequences of [...] protocol. 2. Magnetic resonance angiography of the ovnqbb-ys-Pdabhy was performed using a separate data acquisition with a non-contrast ylcz-vd-xjkynp technique and a post-contrast technique to produce [...] no additional areas of vascular narrowing. The bvzcbq-ek-Jchqkd is complete. Bilateral posterior cerebral artery origins. [...] it. Electronically signed by: Maureen Arenas M.D. us Sanya Faremr MD IMG MRI PROCEDURES Final Re sult * Hepatitis panel, acute Blood (02/05/2024 11:38 AM CDT) Hep A IgM Nonreactive Nonreactive Hep B core IgM Nonreactive Nonreactive [facility] Hep C Ab Nonreactive [facility] Comment:Antibodies to HCV no t detected. Does NOT exclude the possibility of recent exposure to HCV. Current interpretive data was last revised on 22 HepBsAg Nonreactive Nonreactive [facility] Blood 02/05/2024 11:3 8 AM CDT 02/05/2024 12:20 PM CDT us Yolette [place] MD PhD LAB MICROBIOLOGY - GENERAL ORDERABLES Final Result [facility] [place] [address] from Last 3 Months or Most Recently Relevant to Health Maintenance Insurance AET[employer] MEDICARE GOLD AETNA MEDICARE GOLD AETNA MEDICARE GOLD AETNA MEDICARE GOLD Advance Directives For more information, please contact: [phone] * Full Code (Latest Code Status on File) Date Activated Date Inactivated Comments 08/17/2024 11:21 PM 08/23/2024 9:39 PM * Full Code Date Activated Date Inactivated Comments 08/30/2022 3:05 PM 09/18/2022 7:53 PM * Full Code Date Activated Date Inactivated Comments 06/06/2022 6:17 PM 06/07/2022 6:51 PM * Full Code Date Activated Date Inactivated Comments 06/06/2022 5:47 PM 06/06/2022 6:17 PM Care Teams Recruiter Account Manager Relationship Specialty Start Date End Date Alison Perez MD [address] [facility] [place] [address] PCP - General Internal Medicine 08/31/22 Zenon Alexander MD PhD [address] [place] [address] Consulting Physician Neurology 09/18/22 Terrence Avalos MD [address] [place] [address] Consulting Physician Infectious Diseases 09/18/22 Aurora Howell SLP [address] [facility] [address] [place] [address] Speech Language Pathologist Speech Therapy 08/01/24 Clinical Summary Created on: August 29, 2024 Toña Yo : 1955 Sex: Female Author Organization [facility] Address [address] [place] [address] Care Team Providers Care Recruiter Account Manager Name Role Phone Alison Perez MD Primary Care Provider [phone] Zenon Alexander MD PhD Unavailable [phone] Terrence Avalos MD Unavailable Aurora Howell Unavailable Allergies Active Allergy Reactions Criticality Noted Date Comments 1 Plus 1-F Rash,Itching Medium 06/19/2022 1+1-F Creme Swelling Medium 08/01/2022 Alcohol-Propylene Glycol Itching,Urticaria Medium 07/06 Sulfamethoxazole-Trimethopr im Rash Medium 06/19/2022 Cephalosporins Rash,Hives,Swelling Medium 02/26/2019 Swelling Chocolate Rash Medium 08/20/2024 Ciprofloxacin Dizziness Low 08/01/2022 Dupilumab Seizures High 03/07/2023 Per patient Garlic Rash Medium 08/20/2024 Hydrocortisone Itching,Rash,Swelling Medium 06/19/2022 Linalool Itching,Rash,Urticar i a Medium 08/01/2022 Moxifloxacin Rash Medium 08/01/2022 Onion Rash Medium 08/20/2024 Penicillins Hives Medium 06/04/1989 Hives Rosuvastatin Headache Low 08/01/2022 Spinach Rash Medium 08/20/2024 Sulfa (Sulfonamide Antibiotics) Rash,Swelling,Hives Medium 02/26/2019 Swelling Thimerosal Itching,Rash Medium 08/01/2022 Medications brimonidine (ALPHAGAN) 0.2 % ophthalmic solution Administer 1 drop into the right eye 2 (two) times a day Active timoloL (BETIMOL) 0.5 % ophthalmic solution Administer 1 drop into both eyes 2 (two) times a day Active telmisartan (MICARDIS) 80 mg tablet 09/28/19 23 Active gabapentin (NEURONTIN) 300 mg capsule Take 1 capsule (300 mg total) by mouth 3 (three) times a day 05/16/20 23 Active melatonin tablet Take 2 tablets (6 mg total) by mouth nightly 05/07/20 23 Active loteprednol (LOTEMAX) 0.5 % drops,gel Administer 2 drops into both eyes 4 (four) times a day Active amLODIPine (NORVASC) 5 mg tablet Take 1 tablet (5 mg total) by mouth daily 11/14/19 24 Active levothyroxine (SYNTHROID) 125 mcg tablet 1 tablet (125 mcg total) 01/30/20 24 Active atorvastatin (LIPITOR) 80 mg tablet Take 1 tablet (80 mg total) by mouth nightly 01/12/20 24 Active prednisoLONE acetate (PRED FORTE) 1 % ophthalmic suspension 03/05/20 24 Active loratadine (CLARITIN) 10 mg tabletIndicati ons:Seasonal allergic rhinitis due to pollen,Chronic idiopathic urticaria TAKE 2 TABLETS BY MOUTH 2 TIMES A DAY. 360 tablet 3 04/24/20 24 Active aspirin 81 mg enteric coated tablet Take 1 tablet (81 mg total) by mouth daily Active psyllium (KONSYL) powder Take by mouth Active multivitamin with minerals tablet Take 1 tablet by mouth daily Active timolol (TIMOPTIC) 0.5 % ophthalmic solution INSTILL 1 DROP IN BOTH EYE TWICE A DAY 06/07/19 25 Active predniSONE (DELTASONE) 10 mg tablet Take 6 tablets (60 mg) by mouth daily for 7 days, THEN 5 tablets (50 mg) daily for 7 days, THEN 4 tablets (40 mg) daily. 317 tablet 08/26/19 25 025 Active levETIRAcetam (KEPPRA) 1,000 mg tablet Take 1 tablet (1,000 mg total) by mouth 2 (two) times a day 08/24/19 25 026 Active calcium carbonate (OS-MARTINA) 1,250 mg (500 mg elemental) tablet Take 1 tablet (1,250 mg total) by mouth daily 60 tablet 08/25/[address] (PROTONIX) 40 mg EC tablet Take 1 tablet (40 mg total) by mouth daily 60 tablet 08/24/19 Active acetaminophen (TYLENOL) 325 mg tablet Take 2 tablets (650 mg total) by mouth every 4 (four) hours as needed 05/07/20 Discontinu ed(Stop Taking at Discharge) levETIRAcetam (KEPPRA) 1,000 mg tablet 1 tablet (1,000 mg total) Discontinu ed(Stop Taking at Discharge) EPINEPHrine 0.3 mg/0.3 mL auto-injection syringe INJECT 0.3ML INTRAMUSCULARLY ONCE FOR ANAPHYLAXIS AND REPEAT IN 5 MINUTES IF NECESSARY 01/30/20 Discontinu ed(Stop Taking at Discharge) diazePAM (VALIUM) 5 mg tabletIndicati ons:anxiety Take one tab 30 minutes prior to procedure. Repeat thirty minutes later if necessary. 2 tablet 06/30/19 Discontinu ed(Therapy completed) spironolactone (ALDACTONE) 25 mg tablet Take 1 tablet (25 mg total) by mouth daily Discontinu ed(Stop Taking at Discharge) famotidine (PEPCID) 20 mg tablet Take 1 tablet (20 mg total) by mouth 2 (two) times a day 180 tablet 3 07/07/19 25 Discontinu ed(Stop Taking at Discharge) azaTHIOprine (IMURAN) 50 mg tabletIndicati ons:Urticarial vasculitis TAKE 1 AND 1/2 TABLETS BY MOUTH DAILY 135 tablet 07/21/19 25 Discontinu ed(Stop Taking at Discharge) predniSONE (DELTASONE) 50 mg tablet Take 12.5 tablets (625 mg) by mouth once for 1 dose 13 tablet 08/25/19 25 atovaquone (MEPRON) suspension 750 mg/5 mL Take 10 mL (1,500 mg total) by mouth daily 600 mL 08/24/19 25 Discontinu ed(Stop Taking at Discharge) Active Problems Problem Noted Date Diagnosed Date Vasculitis 08/17/2024 Vasculitis, DRAFTER PATENT 05/22/2024 Unspecified contact dermatitis due to other agen ts 04/23/2023 Acute respiratory failure 04/09/2023 Brain herniation 04/09/2023 Cerebrovascular accident (CVA) 04/09/2023 Endotracheally intubated 04/09/2023 Hyponatremia 04/09/2023 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 Seizure 08/30/2022 Hypokalemia 08/30/2022 Elevated liver enzymes 08/30/2022 Atopic dermatitis 08/30/2022 Facial cellulitis 06/06/2022 Assessment & Plan (06/06/2022 8:26 PM PEARL MAKER): Started on Vancomycin CBC and BMP in a.m Cyst of breast 07/07/2015 HTN (hypertension) Assessment & Plan (06/06/2022 8:27 PM PEARL MAKER): Continue amlodipine and losartan Graves disease Assessment & Plan (06/06/2022 8:26 PM PEARL MAKER): Continue Synthroid Resolved Problems Problem Noted Date Diagnosed Date Resolved Date 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 08/30/2022 Encounters Date Type Department Care Team Description 08/26/2024 Telephone [facility] Rheumatology [address] [facility] 5th [place] [address] [place] [address] Gavi Hernández CMA PHV pt follow up 08/22/2024 Ophth Exam [facility] Ophthalmology [address] [place] [phone] Mireille Pineda MD 08/21/2024 Ophth Exam [facility] Ophthalmology [address] [place] [phone] Mireille Pineda MD 08/20/2024 Ophth Exam [facility] Ophthalmology [address] [place] [phone] Mireille Pineda MD 08/19/2024 1:10 PM CDT - 08/19/2024 2:45 PM CDT Surgery [facility] Operating Room [address] [place] [address] Ramesh Graham MD BIOPSY - TEMPORAL ARTERY 08/19/2024 12:31 PM CDT Anesthesia Event [facility] Operating Room [address] [place] [address] Neema Cruz MD PhD Karson Presley NP 08/19/2024 9:40 AM CDT Ancillary Procedure [facility] Vascular Lab IP [address] [facility] [address] [place] [address] 08/19/2024 Ophth Exam [facility] Ophthalmology [address] [place] [phone] Mireille Pineda MD 08/18/2024 Orders Only [address] [phone] Shailesh Wong MD 08/18/2024 Ophth Exam [facility] Ophthalmology [address] [place] [phone] Mireille Pineda MD 08/17/2024 10:49 AM CDT - 08/23/2024 5:30 PM CDT Hospital Encounter [address] [phone] Tommie Mccann MD Lacy, Aaron John, MD Newman, Joshua David, MD Vasculitis (Primary Dx); Vasculitis, DRAFTER PATENT Discharge Disposition: Discharge to home or self care 08/17/2024 Ophth Exam [facility] Ophthalmology [address] [place] [phone] Kori Woodward MD 08/16/2024 4:15 PM CDT Office Visit [facility] Medical [facility] Care at [address] [phone] Amy Escamilla NP Vision changes (Primary Dx); Acute intractable headache, unspecified headache type 08/09/2024 Telephone [facility] Neurology [address] [phone] Sanya Farmer MD 08/01/2024 Plan of Care Documentation [facility] Physical Therapy [address] [place] [phone] 07/30/2024 10:00 AM PEARL MAKER Therapy [facility] Physical Therapy [address] [place] [phone] Aurora Howell SLP Vasculitis, DRAFTER PATENT (Primary Dx); Mild cognitive impairment 07/29/2024 Telephone [facility] Neurology [address] [place] [phone] Sanya Farmer MD 07/18/2024 Telephone [facility] Neurology [address] [place] [phone] Arturo Samantha Brianne 07/15/2024 Telephone [facility] Neurology [address] [place] [phone] Sanya Farmer MD 07/14/2024 Telephone [facility] Neurology [address] [place] [phone] Sanya Farmer MD 07/10/2024 9:42 AM PEARL MAKER - 07/10/2024 11:59 PM PEARL MAKER Hospital Encounter [address] [address] 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; Urticarial vasculitis Discharge Disposition: Discharge to home or self care 07/10/2024 9:30 AM PEARL MAKER Lab [facility] Endocrinology Metabolism and Lipid [address] [facility] 5[address] [place] [address] 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 8:30 AM PEARL MAKER Office Visit [facility] Rheumatology [address] [facility] 5th [place] [address] Hardy De Santiago MD Urticarial vasculitis (Primary Dx); 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; DRAFTER PATENT vasculitis; Abnormal brain scan 07/08/2024 10:26 AM PEARL MAKER - 07/08/2024 11:59 PM PEARL MAKER Hospital Encounter [facility] Radiology [address] [place] [address] Vasculitis, DRAFTER PATENT; Meningoencephaliti s Discharge Disposition: Discharge to home or self care 07/08/2024 Orders Only [facility] Neurology [address] [facility] [address] [place] [address] [place] [address] Sanya Farmer MD Vasculitis, DRAFTER PATENT (Primary Dx); Mild cognitive impairment 07/07/2024 10:40 AM PEARL MAKER Office Visit [facility] Allergy and Immunology [address] [facility] [address] [place] [phone] Shailesh Rivers MD PhD Urticarial vasculitis (Primary Dx); Chronic idiopathic urticaria 06/30/2024 Orders Only [facility] Neurology [address] [facility] [address] [place] [address] Sanya Farmer MD Anxiety disorder, unspecified type 06/17/2024 8:00 AM PEARL MAKER Clinical Support [facility] Neuro Psychology [address] [facility] [address] [place] [phone] Winston Yousif, PhD Cognitive changes 06/17/2024 Orders Only [facility] Neurology [address] [facility] [address] [place] [address] [place] [address] Sanya Farmer MD Vasculitis, DRAFTER PATENT (Primary Dx); Meningoencephaliti s from Last 3 Months Surgical History Surgery Date Site/Laterality Comments HAND SURGERY MYOMECTOMY OVARIAN CYSTECTOMY Right SECTION LUMBAR PUNCTURE WO INJECTION , DIAGNOSTIC 02/25/2024 N/A BIOPSY - TEMPORAL ARTERY 08/19/2024 Head/Right Procedure: BIOPSY - TEMPORAL ARTERY; Surgeon: Ramesh Graham MD; Location: [facility] OR POD 3; Service: Vascular; Laterality: Right; Medical History Medical History Date Comments HTN [...] often do you attend chur ch or gnosticism services? More than 4 times per year 08/31/2022 Do you belong to any clubs o r organizations such as taoism groups, unions, fraternal or athletic groups, or [...] on file Legal Sex Female 11:45 AM PEARL MAKER Gender Identity Female 02/08/2019 7:49 PM CDT Sexual Orientation Straight 02/08/2019 7: 49 PM CDT Obstetrics History Last Filed Vital Signs Vital Sign Reading Time Taken Comments Blood Pressure 107/67 08/23/2024 12:15 PM CDT Pulse 71 08/23/2024 12:15 PM CDT Temperature 36.9 C (98.4 F) 08/23/2024 12:15 PM CDT Respiratory Rate 18 08/23/2024 7:43 AM CDT Oxygen Saturation 99% 08/23/2024 12:15 PM CDT Inhaled Oxygen Concentration - - Weight 70.8 kg (156 lb 1.4 oz) 08/18/2024 11:41 AM CDT Height 177.8 cm (5' 10 ) 08/18/2024 11:41 AM CDT Body Mass Index 22.4 08/18/2024 11:41 AM CDT Plan of Treatment Health Maintenance Due Date Last Done Comments Breast Cancer Screening-Mammogram 1955 Colon Cancer Screening-Colonoscopy 1955 Depression Screening 1955 Osteoporosis Screening-Bone Density Scan 1955 DTaP/Tdap/Td Vaccine (1 - Tdap) 1965 Hepatitis B Screening 1972 Pneumococcal vaccine 65+ (1 of 2 - PCV) 1973 Well Visit 65+ 2019 Zoster Vaccine (2 of 2) 05/06/2020 03/11/2020 Covid-19 Vaccine (2023-2 5 season) 2024 03/06/2024, 08/09/2023, 03/15/2022, Additional history exists Fall Risk Assessment 08/23/2025 08/23/2024 Hepatitis C Screening Completed 02/05/2024, 023 Influenza Vaccine Completed 03/06/2024, , 03/23/2021, Additional history exists Procedures Procedure Name Priority Date/Time Associated Diagnosis Comments G6PD QUALITATIVE WITH REFLEX TO QUANTITATIVE STAT 08/23/2024 2:21 PM CDT POCT GLUCOSE DEVICE Routine 08/23/2024 12:14 PM CDT POCT GLUCOSE DEVICE Routine 08/23/2024 8 :20 AM CDT EGFR Routine 08/23/2024 5:20 AM CDT CRP (ACUTE PHASE) Timed 08/23/2024 5:2 0 AM CDT ERYTHROCYTE SEDIMENTATION RATE Timed 08/23/2024 5:20 AM CDT CBC WITHOUT DIFFERENTIAL Routine 08/23/2024 5:20 AM CDT BASIC METABOLIC PANEL Routine 08/23/2024 5:20 AM CDT POCT GLUCOSE DEVICE Routine 08/22/2024 9 :22 PM CDT POCT GLUCOSE DEVICE Routine 08/22/2024 4 :59 PM CDT POCT GLUCOSE DEVICE Routine 08/22/2024 12:24 PM CDT POCT GLUCOSE DEVICE Routine 08/22/2024 8 :05 AM CDT POCT GLUCOSE DEVICE Routine 08/21/2024 9 :15 PM CDT POCT GLUCOSE DEVICE Routine 08/21/2024 5 :48 PM CDT ND DIAGNOSTIC LUMBAR SPINAL PUNCTURE Routine 08/21/2024 3:17 PM CDT Vasculitis, DRAFTER PATENT MYELIN OLIGODENDROCYTE GLYCOPROTEIN ([id number]) FLUORESCENCE-ACTIVATED CELL SORTING (FACS) Routine 08/21/2024 1:06 PM CDT NMO (NEUROMYELITIS OPTICA) IGG, SERUM Routine 08/21/2024 1:06 PM CDT POCT GLUCOSE DEVICE Routine 08/21/2024 12:45 PM CDT POCT GLUCOSE DEVICE Routine 08/21/2024 8 :12 AM CDT EGFR Routine 08/20/2024 9:49 PM CDT CRP (ACUTE PHASE) Timed 08/20/2024 9:4 9 PM CDT ERYTHROCYTE SEDIMENTATION RATE Timed 08/20/2024 9:49 PM CDT CBC WITHOUT DIFFERENTIAL Routine 08/20/2024 9:49 PM CDT BASIC METABOLIC PANEL Routine 08/20/2024 9:49 PM CDT POCT GLUCOSE DEVICE Routine 08/20/2024 9 :20 PM CDT POCT GLUCOSE DEVICE Routine 08/20/2024 9 :14 PM CDT POCT GLUCOSE DEVICE Routine 08/20/2024 5 :26 PM CDT POCT GLUCOSE DEVICE Routine 08/20/2024 1 :32 PM CDT MRI BRAIN MRV HEAD W WO CONTRAST IP Routine 08/20/2024 12:23 PM CDT MRI MRA VESSEL WALL IMAGING W WO CONTRAST ED Urgent/IP Urgent 08/20/2024 12:23 PM CDT POCT GLUCOSE DEVICE Routine 08/20/2024 7 :55 AM CDT MISCELLANEOUS TEST SENDOUT CHEMISTRY Routine 08/19/2024 11:16 PM CDT IMMUNOGLOBULIN FREE LIGHT CHAINS STAT 08/19/2024 11:16 PM CDT PROTEINASE-3 ANTIBODY STAT 08/19/2024 11:16 PM CDT MYELOPEROXIDASE ANTIBODY STAT 08/19/2024 11:16 PM CDT CYCLIC CITRUL PEPTIDE ANTIBODY, IGG STAT 08/19/2024 11:16 PM CDT RHEUMATOID FACTOR STAT 08/19/2024 11:16 PM CDT LUPUS ANTICOAGULANT PANEL PLUS REFLEXES STAT 08/19/2024 11:16 PM CDT CARDIOLIPIN ANTIBODY, IGM STAT 08/19/2024 11:16 PM CDT CARDIOLIPIN ANTIBODY, IGG STAT 08/19/2024 11:16 PM CDT BETA 2 GLYCOPROTEIN IGM AB STAT 08/19/2024 11:16 PM CDT BETA 2 GLYCOPROTEIN IGG AB STAT 08/19/2024 11:16 PM CDT NEUROMUSCULAR SPECIMEN TRACKING INPATIENT STAT 08/19/2024 11:16 PM CDT IMMUNOTYPING STAT 08/19/2024 11:16 PM CDT EGFR Routine 08/19/2024 10:24 PM CDT CALCIUM, IONIZED Routine 08/19/2024 10:24 PM CDT VITAMIN D 25 HYDROXY Routine 08/19/2024 10:24 PM CDT CBC WITHOUT DIFFERENTIAL Routine 08/19/2024 10:24 PM CDT BASIC METABOLIC PANEL Routine 08/19/2024 10:24 PM CDT POCT GLUCOSE DEVICE Routine 08/19/2024 9 :51 PM CDT POCT GLUCOSE DEVICE Routine 08/19/2024 5 :50 PM CDT US SOFT TISSUE HEAD NECK Timed 08/19/2024 3:51 PM CDT CV HYBRID ROOM (DEFAULT ORDERABLE) Routine 08/19/2024 1:29 PM CDT Vasculitis SURGICAL PATHOLOGY Routine 08/19/2024 1: 13 PM CDT Vasculitis SURGICAL PATHOLOGY Routine 08/19/2024 12:05 PM CDT US VEIN DUPLEX LOWER EXTREMITY RIGHT LIMITED IP Routine 08/19/2024 10:31 AM CDT PET/CT FDG SKULL TO THIGH IP Routine 08/19/2024 9:17 AM CDT EGFR Timed 08/19/2024 6:41 AM CDT BASIC METABOLIC PANEL Timed 08/19/2024 6:41 AM CDT OSMOLALITY, URINE STAT 08/19/2024 1:3 9 AM CDT SODIUM, URINE, RANDOM STAT 08/19/2024 1:39 AM CDT URINALYSIS AND REFLEX TO MICROSCOPIC AND CULTURE Routine 08/18/2024 10:30 PM CDT CRITICAL RESULT CALLBACK CHEMISTRY Routine 08/18/2024 10:01 PM CDT OSMOLALITY, BLOOD Routine 08/18/2024 10:01 PM CDT EGFR Routine 08/18/2024 10:01 PM CDT CBC WITHOUT DIFFERENTIAL Routine 08/18/2024 10:01 PM CDT BASIC METABOLIC PANEL Routine 08/18/2024 10:01 PM CDT RESPIRATORY PATHOGEN PANEL Routine 08/18/2024 10:01 PM CDT XR FOOT RIGHT 3 OR MORE VIEWS IP Routine 08/18/2024 9:23 PM CDT XR CHEST PA LATERAL 2 VIEWS Routine 08/18/2024 9:23 PM CDT BLOOD CULTURE Routine 08/18/2024 3:46 PM CDT BLOOD CULTURE Routine 08/18/2024 3:46 PM CDT FLOW LEUKEMIA/LYMPHOMA Timed 3:24 PM CDT SURGICAL PATHOLOGY Routine 08/18/2024 3: 23 PM CDT MISCELLANEOUS TEST SENDOUT CHEMISTRY Routine 08/18/2024 3:08 PM CDT FLOW LEUKEMIA/LYMPHOMA Timed 3:07 PM CDT MISCELLANEOUS TEST SENDOUT CHEMISTRY Routine 08/18/2024 3:07 PM CDT MISCELLANEOUS TEST SENDOUT CHEMISTRY Routine 08/18/2024 3:07 PM CDT C2 COMPLEMENT Routine 08/18/2024 3:07 PM CDT COMPLEMENT, TOTAL Routine 08/18/2024 3:0 7 PM CDT CELL COUNT W REFLEX DIFFERENTIAL, CSF Routine 08/18/2024 3:07 PM CDT OLIGOCLONAL BANDS Routine 08/18/2024 3:0 7 PM CDT IGG INDEX, CSF Routine 08/18/2024 3:07 PM CDT CSF PROTEIN Routine 08/18/2024 3:07 PM CDT CELL COUNT W REFLEX DIFFERENTIAL, CSF Routine 08/18/2024 3:07 PM CDT GLUCOSE, CSF Routine 08/18/2024 3:07 PM CDT CRYPTOCOCCAL ANTIGEN, CSF Routine 08/18/2024 3:07 PM CDT BACTERIAL CULTURE AND GRAM STAIN, CSF Routine 08/18/2024 3:07 PM CDT MYCOLOGY (FUNGAL) CULTURE AND CRYPTOCOCCUS ANTIGEN, CSF Routine 08/18/2024 3:07 PM CDT ANGIOTENSIN CONVERTING ENZYME STAT 08/18/2024 12:57 PM CDT IMMUNE COMPETENCE STAT 08/18/2024 12:57 PM CDT IGA STAT 08/18/2024 12:57 PM CDT IGM STAT 08/18/2024 12:57 PM CDT IMMUNOGLOBULIN IGG SUBCLASSES STAT 08/18/2024 12:57 PM CDT BRANDT ANTIBODY EVALUATION WITH REFLEX STAT 08/18/2024 12:57 PM CDT T-SPOT.TB STAT 08/18/2024 12:57 PM CDT CYTOLOGY Routine 08/18/2024 12:35 PM CDT ALDOLASE STAT 08/18/2024 10:33 AM CDT CREATINE KINASE (CK), TOTAL STAT 08/18/2024 10:33 AM CDT C4 COMPLEMENT STAT 08/18/2024 10:33 AM CDT C3 COMPLEMENT STAT 08/18/2024 10:33 AM CDT BETA 2 TRANSFERRIN, BODY FLUID STAT 08/18/2024 5:25 AM CDT ND CRITICAL CARE ILL/INJURED PATIENT INIT 30-74 MIN Routine 08/17/2024 10:10 PM CDT MYELOPEROXIDASE ANTIBODY STAT 08/17/2024 8:34 PM CDT PROTEINASE-3 ANTIBODY STAT 08/17/2024 8:34 PM CDT FERRITIN STAT 08/17/2024 8:34 PM CDT FOLATE STAT 08/17/2024 8:34 PM CDT HOMOCYSTEINE STAT 08/17/2024 8:34 PM CDT METHYLMALONIC ACID, SERUM STAT 08/17/2024 8:34 PM CDT VITAMIN B12 STAT 08/17/2024 8:34 PM CDT VITAMIN B1 STAT 08/17/2024 8:34 PM CDT ANTI-NEUTROPHILIC CYTOPLASMIC ANTIBODY (ANCA) WITH REFLEX TO MPO AND PR3 ABS STAT 08/17/2024 8:34 PM CDT JEAN CLAUDE QUALITATIVE WITH REFLEX TO JEAN CLAUDE QUANTITATIVE STAT 08/17/2024 8:34 PM CDT TREPONEMAL IGG/IGM STAT 08/17/2024 8: 34 PM CDT RPR STAT 08/17/2024 8:34 PM CDT HIV 1/2 ANTIBODY PLUS P24 ANTIGEN STAT 08/17/2024 8:34 PM CDT MRI BRAIN INCL ORBITS W WO CONTRAST ED 08/17/2024 8:02 PM CDT MRI BRAIN W WO MRA HEAD WO CONTRAST MRA NECK W WO CONTRAST ED 08/17/2024 8:02 PM CDT RESPIRATORY PATHOGEN PANEL STAT 08/17/2024 2:02 PM CDT CTA HEAD NECK W WO CONTRAST ED 08/17/2024 1:06 PM CDT POCT CREATININE - DEVICE Routine 08/17/2024 12:29 PM CDT EGFR STAT 08/17/2024 12:18 PM CDT DIFFERENTIAL AUTO STAT 08/17/2024 12:18 PM CDT APTT STAT 08/17/2024 12:18 PM CDT PROTIME-INR STAT 08/17/2024 12:18 PM CDT CRP (ACUTE PHASE) STAT 08/17/2024 12:18 PM CDT ERYTHROCYTE SEDIMENTATION RATE STAT 08/17/2024 12:18 PM CDT CBC WITH AUTO DIFFERENTIAL STAT 08/17/2024 12:18 PM CDT COMPREHENSIVE METABOLIC PANEL STAT 08/17/2024 12:18 PM CDT ERYTHROCYTE SEDIMENTATION RATE Routine 07/10/2024 9:42 AM PEARL MAKER Urticarial vasculitis THIOPURINE METABOLITES Routine 9:42 AM PEARL MAKER 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 COMPREHENSIVE METABOLIC PANEL Routine 07/10/2024 9:42 AM PEARL MAKER Urticarial vasculitis CRP (ACUTE PHASE) Routine 07/10/2024 9:4 2 AM PEARL MAKER Urticarial vasculitis CBC WITH AUTO DIFFERENTIAL Routine 07/10/2024 9:42 AM PEARL MAKER Urticarial vasculitis MRI MRA VESSEL WALL IMAGING W WO CONTRAST Schedule Routine, Read Routine (OP Routine) 07/08/2024 12:12 PM PEARL MAKER Vasculitis, DRAFTER PATENT Meningoencephalit is HEPATITIS PANEL, ACUTE Routine 11:38 AM CDT Rash and other nonspecific skin eruption from Last 3 Months or Most Recently Relevant to Health Maintenance Results * G6PD qualitative with reflex to quantitative (08/23/2024 2:21 PM CDT) [facility] G6PD Normal Normal Comment: Interp data: G6PD activity should be interpreted in the context of a patient's hematocrit. Hematocrit < 20% may lead to a falsely deficient result, while hematocrit > 50% may lead to a falsely normal result. Current interpretive data was last revised on 2019. Blood 08/23/2024 2:21 PM CDT 08/23/2024 2:46 PM CDT Mark Hernandez MD LAB BLOOD ORDERABLES Keyona l Result Performing Organization Address City/[facility]/ZIP Co de Phone Number [facility] [place] [place] [address] * POCT glucose (08/23/2024 12:14 PM CDT) [facility] Glucose, POC 149 70 - 199 mg/dL Blood 08/23/2024 12:1 4 PM CDT 08/23/2024 12:14 PM CDT Mark Hernandez MD LAB POCT ORDERABLES - DEV ICE Final Result Performing Organization Address City/[facility] Co de Phone Number [facility] [place] [place] [address] * POCT glucose (08/23/2024 8:20 AM CDT) [facility] Glucose, POC 117 70 - 199 mg/dL Blood 08/23/2024 8:20 AM CDT 08/23/2024 8:20 AM CDT Mark Hernandez MD LAB POCT ORDERABLES - DEV ICE Final Result Performing Organization Address City/[facility]/ZIP Co de Phone Number [facility] [place] [place] [address] * eGFR (08/23/2024 5:20 AM CDT) eGFR 88 >=60 mL/min/1. 73 m2 Comment: Interpretive Data Reference Interval Normal >/= 90 mL/min/1.73m2 Mildly decreased* 60 - 89 mL/min/1.73m2 Mildly to moderately decreased 45 - 59 mL/min/1.73m2 Moderately to severely decreased 30 - 44 mL/min/1.73m2 Severely decreased 15 - 29 mL/min/1.73m2 Kidney Failure < 15 mL/min/1.73m2 *Relative to young adult level Estimated glomerular filtration rate is determined by the 2020 CKD-EPI equation recommended by the National Kidney Foundation (A Unifying Approach to GFR Estimation: Recommendations of the NKF-ASK Task Force on Reassessing the Inclusion of Race in Diagnosing Kidney Disease, JASN 2020). The CKD-EPI equation should not be used for patients with unstable renal function and has not been validated in children and those over 70. Current interpretive data was last reviewed 2021. Blood 08/23/2024 5:20 AM CDT 08/23/2024 5:42 AM CDT Mark Hernandez MD LAB BLOOD ORDERABLES Keyona l Result Performing Organization Address City/[facility]/ZIP Co de Phone Number [facility] Department [place] [employer] [place] [address] * (ABNORMAL) Erythrocyte sedimentation rate (08/23/2024 5:20 AM CDT) Pathologist [facility] Erythrocyte sedimentation rate 94(H) 1 - 30 mm/hr Blood 08/23/2024 5:20 AM CDT 08/23/2024 5:42 AM CDT Mark Hernandez MD LAB BLOOD ORDERABLES Keyona l [facility] [place] [address] * (ABNORMAL) CBC without differential (08/23/2024 5:20 AM CDT) Pathologist [facility] WBC 15.6(H) 3.8 - 9.9 K/cumm Hgb 8.6(L) 11.9 - 15.5 g/dL [facility] Hct 25.2(L) 35.6 - 45.5 % [facility] Plt 333 150 - 400 K/cumm [facility] MPV 9.3 9.1 - 12.3 fL [facility] RBC 2.69(L) 3.90 - 5.20 M/cumm [facility] MCV 93.7 81.3 - 96.4 fL [facility] MCH 32.0 27.1 - 33.3 pg [facility] MCHC 34.1 32.3 - 35.7 g/dL [facility] RDW CV 14.5 11.1 - 14.9 % [facility] RDW SD 49.2(H) 35.7 - 48.1 fL [facility] NRBC abs 0.00 0.00 - 0.01 K/cumm [facility] Blood 08/23/2024 5:20 AM CDT 08/23/2024 5:42 AM CDT Mark Hernandez MD LAB BLOOD ORDERABLES Keyona l Result [facility] Department [place] [employer] [place] [address] * (ABNORMAL) CRP (acute phase) (08/23/2024 5:20 AM CDT) [facility] CRP 30.8(H) <=10.0 mg/L Blood 08/23/2024 5:20 AM CDT 08/23/2024 5:42 AM CDT Mark Hernandez MD LAB BLOOD ORDERABLES Keyona l Result [facility] [place] [employer] [place] [address] * Basic metabolic panel (08/23/2024 5:20 AM CDT) Sodium 137 135 - 145 mmol/L Potassium, pl 4.8 3.3 - 4.9 mmol/L [facility] Chloride 101 97 - 110 mmol/L [facility] CO2 28 22 - 32 mmol/L [facility] Anion gap 8 2 - 15 mmol/L [facility] BUN 18 6 - 25 mg/dL [facility] Creatinine 0.73 0.60 - 1.10 mg/dL [facility] Glucose 132 70 - 199 mg/dL [facility] Comment: Interpretive Data Fasting glucose >/= 126 mg/dl is diagnostic for diabetes. Fasting is defined as no caloric intake for at least 8 hours. Fasting glucose between 100 mg/dl to 125 mg/dl is diagnostic of prediabetes. In a patient with classic symptoms of hyperglycemia or hyperglycemic crisis, a random glucose >/= 200 mg/dl is diagnostic for diabetes. In the absence of unequivocal hyperglycemia, results should be confirmed by repeat testing. The classification and Diagnosis of Diabetes Diabetes Care 2021; 46: S19-S40. Current interpretive data was last revised 2022. Calcium 9.4 8.5 - 10.3 mg/dL [facility] Blood 08/23/2024 5:20 AM CDT 08/23/2024 5:42 AM CDT us Mark Hernandez MD LAB BLOOD ORDERABLES Keyona l Result Performing Organization Address City/[facility]/ZIP Co de Phone Number [facility] Department [place] [address] * POCT glucose (08/22/2024 9:22 PM CDT) Glucose, POC 172 70 - 199 mg/dL Blood 08/22/2024 9:22 PM CDT 08/22/2024 9:22 PM CDT Mark Hernandez MD LAB POCT ORDERABLES - DEV ICE Final Result Performing Organization Address [facility]/ZIP Co de Phone Number [place] [address] * POCT glucose (08/22/2024 4:59 PM CDT) Glucose, POC 172 70 - 199 mg/dL Blood 08/22/2024 4:59 PM CDT 08/22/2024 4:59 PM CDT Mark Hernandez MD LAB POCT ORDERABLES - DEV ICE [place] [address] * POCT glucose (08/22/2024 12:24 PM CDT) Glucose, POC 156 70 - 199 mg/dL Blood 08/22/2024 12:2 4 PM CDT 08/22/2024 12:24 PM CDT us Mark Hernandez MD LAB POCT ORDERABLES - DEV ICE [place] [address] * POCT glucose (08/22/2024 8:05 AM CDT) Glucose, POC 135 70 - 199 mg/dL Blood 08/22/2024 8:05 AM CDT 08/22/2024 8:05 AM CDT Mark Hernandez MD LAB POCT ORDERABLES - DEV ICE [place] [address] * POCT glucose (08/21/2024 9:15 PM CDT) Glucose, POC 164 70 - 199 mg/dL Blood 08/21/2024 9:15 PM CDT 08/21/2024 9:15 PM CDT Mark Hernandez MD LAB POCT ORDERABLES - DEV ICE Final Result Performing Organization Address [facility] Co de Phone Number [facility] [place] [address] * POCT glucose (08/21/2024 5:48 PM CDT) Glucose, POC 144 70 - 199 mg/dL Blood 08/21/2024 5:48 PM CDT 08/21/2024 5:48 PM CDT Mark Hernandez MD LAB POCT ORDERABLES - DEV ICE Final Result Performing Organization Address [facility] de Phone Number [facility] [place] [address] * ND DIAGNOSTIC LUMBAR SPINAL PUNCTURE (08/21/2024 3:17 PM CDT) Narrative Mark Hernandez MD - 08/21/2024 3:17 PM CDT Mark Hernandez MD 08/21/2024 3:19 PM Lumbar Puncture Date/Time: 08/21/2024 3:17 PM Performed by: Mark Hernandez MD Authorized by: Mark Hernandez MD [place] Protocol: RN Notified of Procedure: yes Informed consent: Risks, benefits, alternatives discussed and patient/denial management representative/guardian agrees and accepts Patient's stated name/ matches armband: Yes Allergies confirmed: yes Consent form signed, dated, timed; matches correct patient, intended procedure and site: Yes Imaging: Pertinent imaging reviewed, correctly oriented and match to patient identifiers Lab/Diag test results: Pertinent lab/diag tests reviewed and match to patient identifiers Supplies, devices and special equipment are available: yes Site/side marked: yes Immediately prior to the procedure a time out was called: a verbal verification by the procedure participants confirmed correct patient identity, correct site/side marked and visible (if applicable); agreement on procedure to be done; and correct patient positioning Indications: Evaluation for infection and evaluation for altered mental status Anesthesia (see MAR for exact dosage) Anesthesia method: Local infiltration Local anesthetic: Lidocaine 1% Patient prepararion: Gloves, handwashing and partial body drape Skin preparation: Skin prepped with povidone-iodine Lumbar space: L3-L4 interspace Patient's position: Left lateral decubitus Needle gauge: 20 Needle length: 3.5 Needle type: Sprotte tip Number of attempts: 3 Opening pressure (cm H2O): not measured. Closing pressure (cm H2O): not measured. Fluid appearance: Clear Tubes of fluid: 7. Total volume (ml): 34 Post-procedure: Site cleaned and adhesive bandage applied Post Procedure Debrief: All guidewires, needles, sponges or other items are accounted for: yes Any special post procedure monitoring, testing or other considerations: yes (enter/request order) All specimens identified, labeled and matched to patient identification: yes Responsible democrat for transporting specimen(s) to lab determined: yes Mark Hernandez MD IN CLINIC/BEDSIDE ORDERAB LES Final Result * Myelin Oligodendrocyte Glycoprotein (MOG-IgG1) Fluorescence-Activated Cell Sorting (FACS) (08/21/2024 1:06 PM CDT) [facility] MOG IgG ser Negative Negative [facility] Lab Comment: No informative autoantibodies were detected in this evaluation. A negative result does not preclude a diagnosis of an inflammatory DRAFTER PATENT demyelinating disorder. ADDITIONAL INFORMATION This test was developed and its performance characteristics determined by [facility] in a manner consistent with CLIA requirements. This test has not been cleared or approved by the U.S. Food and Drug Administration. Test Performed by: [facility] - [address] [address] Software Quality Assurance Analyst: Dawit Avendano Ph.D.; CLIA# [id number] Blood 08/21/2024 1:06 PM CDT 08/21/2024 2:12 PM CDT Mark Hernandez MD LAB BLOOD ORDERABLES Keyona l Result Performing Organization Address City/[facility]/ZIP Co de Phone Number [facility] [employer] [place] [address] [place] ref Lab * NMO (neuromyelitis optica) IgG, serum (08/21/2024 1:06 PM CDT) NMO/AQP4 IgG ser Negative Negative [facility] ref Lab Comment: Recommend repeat testing in 6 months if clinical suspicion is high. Negative result can occur in the setting of immunosuppression. ADDITIONAL INFORMATION This test was developed and its performance characteristics determined by [facility] in a manner consistent with CLIA requirements. This test has not been cleared or approved by the U.S. Food and Drug Administration. Test Performed by: [facility] [place] [address] Software Quality Assurance Analyst: Dawit Avendano Ph.D.; CLIA# [id number] Blood 08/21/2024 1:06 PM CDT 08/21/2024 2:13 PM CDT Mark Hernandez MD LAB BLOOD ORDERABLES Keyona l Result Performing Organization Address [facility] Co de Phone Number [facility] [employer] [place] [address] [facility] ref [facility] * POCT glucose (08/21/2024 12:45 PM CDT) Glucose, POC 159 70 - 199 mg/dL Blood 08/21/2024 12:4 5 PM CDT 08/21/2024 12:45 PM CDT Mark Hernandez MD LAB POCT ORDERABLES - DEV ICE Final Result Performing Organization Address City/[facility] Co de Phone Number [facility] [employer] [place] [address] * POCT glucose (08/21/2024 8:12 AM CDT) Glucose, POC 136 70 - 199 mg/dL Blood 08/21/2024 8:12 AM CDT 08/21/2024 8:12 AM CDT Shailesh Wong MD LAB POCT ORDERABLES - DEVICE Final Result Performing Organization Address [facility] Co de Phone [place] [address] * eGFR (08/20/2024 9:49 PM CDT) Pathologist [facility] eGFR >90 >=60 mL/min/1. 73 m2 Comment: Interpretive Data Reference Interval Normal >/= 90 mL/min/1.73m2 Mildly decreased* 60 - 89 mL/min/1.73m2 Mildly to moderately decreased 45 - 59 mL/min/1.73m2 Moderately to severely decreased 30 - 44 mL/min/1.73m2 Severely decreased 15 - 29 mL/min/1.73m2 Kidney Failure < 15 mL/min/1.73m2 *Relative to young adult level Estimated glomerular filtration rate is determined by the 2020 CKD-EPI equation recommended by the National Kidney Foundation (A Unifying Approach to GFR Estimation: Recommendations of the NKF-ASK Task Force on Reassessing the Inclusion of Race in Diagnosing Kidney Disease, JASN 2020). The CKD-EPI equation should not be used for patients with unstable renal function and has not been validated in children and those over 70. Current interpretive data was last reviewed 2021. Blood 08/20/2024 9:49 PM CDT 08/20/2024 10:04 PM CDT us Mark Hernandez MD LAB BLOOD ORDERABLES Keyona l Result Performing Organization Address [facility]/ZIP Co de Phone Number [facility] [employer] [place] [address] * (ABNORMAL) Erythrocyte sedimentation rate (08/20/2024 9:49 PM CDT) [facility] Erythrocyte sedimentation rate 95(H) 1 - 30 mm/hr Blood 08/20/2024 9:49 PM CDT 08/20/2024 10:04 PM CDT Shailesh Wong MD LAB BLOOD ORDERABLES Final Re sult [facility] Department [place] [employer] [place] [address] * (ABNORMAL) CBC without differential (08/20/2024 9:49 PM CDT) [facility] WBC 13.8(H) 3.8 - 9.9 K/cumm Hgb 9.9(L) 11.9 - 15.5 g/dL [facility] Hct 28.4(L) 35.6 - 45.5 % [facility] Plt 232 150 - 400 K/cumm [facility] MPV 9.7 9.1 - 12.3 fL [facility] RBC 3.08(L) 3.90 - 5.20 M/cumm [facility] MCV 92.2 81.3 - 96.4 fL [facility] MCH 32.1 27.1 - 33.3 pg [facility] MCHC 34.9 32.3 - 35.7 g/dL [facility] RDW CV 14.1 11.1 - 14.9 % [facility] RDW SD 47.7 35.7 - 48.1 fL [facility] NRBC abs 0.00 0.00 - 0.01 K/cumm [facility] Blood 08/20/2024 9:49 PM CDT 08/20/2024 10:04 PM CDT us Mrak Hernandez MD LAB BLOOD ORDERABLES Keyona l Result [facility] Department [place] [address] * (ABNORMAL) CRP (acute phase) (08/20/2024 9:49 PM CDT) Pathologist [facility] CRP 195.4(H) <=10.0 mg/L Blood 08/20/2024 9:49 PM CDT 08/20/2024 10:04 PM CDT Shailesh Wong MD LAB BLOOD ORDERABLES Final Re sult [facility] Department [place] [address] * (ABNORMAL) Basic metabolic panel (08/20/2024 9:49 PM CDT) [facility] Sodium 131(L) 135 - 145 mmol/L Potassium, pl 4.7 3.3 - 4.9 mmol/L [facility] Chloride 95(L) 97 - 110 mmol/L [facility] CO2 25 22 - 32 mmol/L [facility] Anion gap 11 2 - 15 mmol/L [facility] BUN 18 6 - 25 mg/dL [facility] Creatinine 0.65 0.60 - 1.10 mg/dL [facility] Glucose 157 70 - 199 mg/dL [facility] Comment: Interpretive Data Fasting glucose >/= 126 mg/dl is diagnostic for diabetes. Fasting is defined as no caloric intake for at least 8 hours. Fasting glucose between 100 mg/dl to 125 mg/dl is diagnostic of prediabetes. In a patient with classic symptoms of hyperglycemia or hyperglycemic crisis, a random glucose >/= 200 mg/dl is diagnostic for diabetes. In the absence of unequivocal hyperglycemia, results should be confirmed by repeat testing. The classification and Diagnosis of Diabetes Diabetes Care 2021; 46: S19-S40. Current interpretive data was last revised 2022. Calcium 8.9 8.5 - 10.3 mg/dL [facility] Blood 08/20/2024 9:49 PM CDT 08/20/2024 10:04 PM CDT Mark Hernandez MD LAB BLOOD ORDERABLES Keyona l Result Performing Organization Address City/[facility]/ZIP Co de Phone Number [facility] [employer] [place] [address] * POCT glucose (08/20/2024 9:20 PM CDT) Glucose, POC 168 70 - 199 mg/dL Blood 08/20/2024 9:20 PM CDT 08/20/2024 9:20 PM CDT Shailesh Wong MD LAB POCT ORDERABLES - DEVICE Final Result Performing Organization Address [facility] Co de Phone Number [facility] [employer] [place] [address] * POCT glucose (08/20/2024 9:14 PM CDT) Glucose, POC 149 70 - 199 mg/dL Blood 08/20/2024 9:14 PM CDT 08/20/2024 9:14 PM CDT Shailesh Wong MD LAB POCT ORDERABLES - DEVICE Final Result Performing Organization Address [facility] Co de Phone Number [facility] [employer] [place] [address] * POCT glucose (08/20/2024 5:26 PM CDT) Glucose, POC 140 70 - 199 mg/dL Blood 08/20/2024 5:26 PM CDT 08/20/2024 5:26 PM CDT Shailesh Wong MD LAB POCT ORDERABLES - DEVICE Final Result Performing Organization Address City/[facility]/ZIP Co de Phone Number [facility] [place] [place] [address] * POCT glucose (08/20/2024 1:32 PM CDT) Glucose, POC 132 70 - 199 mg/dL Blood 08/20/2024 1:32 PM CDT 08/20/2024 1:32 PM CDT us Shailesh Wong MD LAB POCT ORDERABLES - DEVICE Final Result [facility] Department [place] [address] * MRI MRA Vessel Wall Imaging W WO Contrast (08/20/2024 12:23 PM CDT) Anatomical Region Laterality Modality Head and Neck N/A Magnetic Resonan ce 08/20/2024 2:08 PM CDT Impressions 08/20/2024 3:38 PM CDT Severely motion degraded examination with nondiagnostic vessel imaging and severely degraded postcontrast sequences. Within this limitation queried right M2 narrowing seen on prior study is not redemonstrated, and the right optic nerve is not well evaluated. No definite interval findings. Dictated by: James Hanson MD The radiology attending physician has personally reviewed this study, and had reviewed and/or edited this written report and agrees with it. Electronically signed by: Julián Harkins M.D. Narrative 08/20/2024 3:38 PM CDT EXAMINATION: 1. Magnetic resonance imaging (MRI) of the brain and brainstem without and with contrast 2. Magnetic resonance angiography (MRA) of the mppyhx-ti-Wmualz without and with contrast 3. 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 Magnetic resonance angiography of the rxkcuh-bf-Tclqcl was performed using a separate data acquisition with a non-contrast ejml-md-bylgwd technique and a post-contrast technique to produce axial thin-slice source images. These images were then used to generate maximum intensity projection (MIP) images. Magnetic resonance venography of the dural venous sinuses was performed using a separate data acquisition with a non-contrast 3D phase contrast technique and a post-contrast technique to produce axial thin-slice source images. These images were then used to generate maximum intensity projection (MIP) images. Contrast information: 14 mL Gadoterate Meglumine IV COMPARISON: 08/17/2024 FINDINGS: Examination is severely motion degraded with nondiagnostic vessel wall imaging and the majority of postcontrast sequences. MRI: The scalp and calvarium are normal. The superior sagittal sinus demonstrates normal venous flow. The corpus callosum is normal in shape and signal intensity. The posterior fossa is unremarkable. The pituitary and sella are normal. The brainstem and craniocervical junction are unremarkable. 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 Diffusion weighted images reveal no hyperintensities to suggest acute cerebral infarction. Punctate foci of susceptibility in left caudate. The ventricles are normal in size and position without evidence of hydrocephalus. The paranasal sinuses are normal. Bilateral mastoid effusions. The orbits appear normal; of note the optic nerves are not well evaluated. Normal flow voids are demonstrated in the carotid arteries and basilar artery. MRA: The internal carotid arteries in the head are of normal caliber. There are no areas of vascular narrowing; of note the suspected M2 narrowing seen on prior study is not redemonstrated. The incfuv-mi-Mutufr is complete. The anterior and middle cerebral arteries are normal. The vertebral arteries are codominant. The basilar artery is normal. The posterior cerebral arteries are normal. There is no aneurysm or vascular malformation identified. Although MRA is a screening examination, catheter angiography remains the definitive study for small aneurysms, vasculitis, and other vascular abnormalities. MRV: On the MR venogram, normal signal is demonstrated within the superior sagittal, straight, transverse, and sigmoid sinuses. The jugular veins, internal cerebral veins, and vein of Jean Pierre are normal. No luminal filling defects are seen. Procedure Note Julián Harkins MD - 08/20/2024 EXAMINATION: 1. Magnetic resonance imaging (MRI) of the brain and brainstem without and with contrast 2. Magnetic resonance angiography (MRA) of the radhii-to-Kqrvtv without and with contrast 3. 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 Magnetic resonance angiography of the kjbvkb-lm-Zzyeum was performed using a separate data acquisition with a non-contrast beoi-vp-rlpqeo technique and a post-contrast technique to produce axial thin-slice source images. These images were then used to generate maximum intensity projection (MIP) images. Magnetic resonance venography of the dural venous sinuses was performed using a separate data acquisition with a non-contrast 3D phase contrast technique and a post-contrast technique to produce axial thin-slice source images. These images were then used to generate maximum intensity projection (MIP) images. Contrast information: 14 mL Gadoterate Meglumine IV COMPARISON: 08/17/2024 FINDINGS: Examination is severely motion degraded with nondiagnostic vessel wall imaging and the majority of postcontrast sequences. MRI: The scalp and calvarium are normal. The superior sagittal sinus demonstrates normal venous flow. The corpus callosum is normal in shape and signal intensity. The posterior fossa is unremarkable. The pituitary and sella are normal. The brainstem and craniocervical junction are unremarkable. 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 Diffusion weighted images reveal no hyperintensities to suggest acute cerebral infarction. Punctate foci of susceptibility in left caudate. The ventricles are normal in size and position without evidence of hydrocephalus. The paranasal sinuses are normal. Bilateral mastoid effusions. The orbits appear normal; of note the optic nerves are not well evaluated. Normal flow voids are demonstrated in the carotid arteries and basilar artery. MRA: The internal carotid arteries in the head are of normal caliber. There are no areas of vascular narrowing; of note the suspected M2 narrowing seen on prior study is not redemonstrated. The tyfoii-xe-Zforxo is complete. The anterior and middle cerebral arteries are normal. The vertebral arteries are codominant. The basilar artery is normal. The posterior cerebral arteries are normal. There is no aneurysm or vascular malformation identified. Although MRA is a screening examination, catheter angiography remains the definitive study for small aneurysms, vasculitis, and other vascular abnormalities. MRV: On the MR venogram, normal signal is demonstrated within the superior sagittal, straight, transverse, and sigmoid sinuses. The jugular veins, internal cerebral veins, and vein of Jean Pierre are normal. No luminal filling defects are seen. IMPRESSION: Severely motion degraded examination with nondiagnostic vessel imaging and severely degraded postcontrast sequences. Within this limitation queried right M2 narrowing seen on prior study is not redemonstrated, and the right optic nerve is not well evaluated. No definite interval findings. Dictated by: James Hanson MD The radiology attending physician has personally reviewed this study, and had reviewed and/or edited this written report and agrees with it. Electronically signed by: Julián Harkins M.D. Shailesh oWng MD IMG MRI PROCEDURES Final Resu lt * MRI Brain and MRV Head W WO Contrast (08/20/2024 12:23 PM CDT) Anatomical Region Laterality Modality Head and Neck N/A Magnetic Resonan ce 08/20/2024 2:08 PM CDT Impressions 08/20/2024 3:38 PM CDT Severely motion degraded examination with nondiagnostic vessel imaging and severely degraded postcontrast sequences. Within this limitation queried right M2 narrowing seen on prior study is not redemonstrated, and the right optic nerve is not well evaluated. No definite interval findings. Dictated by: James Hanson MD The radiology attending physician has personally reviewed this study, and had reviewed and/or edited this written report and agrees with it. Electronically signed by: Julián Harkins M.D. Narrative 08/20/2024 3:38 PM CDT EXAMINATION: 1. Magnetic resonance imaging (MRI) of the brain and brainstem without and with contrast 2. Magnetic resonance angiography (MRA) of the pdiyke-do-Llwbqf without and with contrast 3. 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 Magnetic resonance angiography of the ormira-et-Gvguec was performed using a separate data acquisition with a non-contrast kpdv-tn-dfgfrj technique and a post-contrast technique to produce axial thin-slice source images. These images were then used to generate maximum intensity projection (MIP) images. Magnetic resonance venography of the dural venous sinuses was performed using a separate data acquisition with a non-contrast 3D phase contrast technique and a post-contrast technique to produce axial thin-slice source images. These images were then used to generate maximum intensity projection (MIP) images. Contrast information: 14 mL Gadoterate Meglumine IV COMPARISON: 08/17/2024 FINDINGS: Examination is severely motion degraded with nondiagnostic vessel wall imaging and the majority of postcontrast sequences. MRI: The scalp and calvarium are normal. The superior sagittal sinus demonstrates normal venous flow. The corpus callosum is normal in shape and signal intensity. The posterior fossa is unremarkable. The pituitary and sella are normal. The brainstem and craniocervical junction are unremarkable. 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 Diffusion weighted images reveal no hyperintensities to suggest acute cerebral infarction. Punctate foci of susceptibility in left caudate. The ventricles are normal in size and position without evidence of hydrocephalus. The paranasal sinuses are normal. Bilateral mastoid effusions. The orbits appear normal; of note the optic nerves are not well evaluated. Normal flow voids are demonstrated in the carotid arteries and basilar artery. MRA: The internal carotid arteries in the head are of normal caliber. There are no areas of vascular narrowing; of note the suspected M2 narrowing seen on prior study is not redemonstrated. The pjjwkm-di-Jvxtkj is complete. The anterior and middle cerebral arteries are normal. The vertebral arteries are codominant. The basilar artery is normal. The posterior cerebral arteries are normal. There is no aneurysm or vascular malformation identified. Although MRA is a screening examination, catheter angiography remains the definitive study for small aneurysms, vasculitis, and other vascular abnormalities. MRV: On the MR venogram, normal signal is demonstrated within the superior sagittal, straight, transverse, and sigmoid sinuses. The jugular veins, internal cerebral veins, and vein of Jean Pierre are normal. No luminal filling defects are seen. Procedure Note Julián aHrkins MD - 08/20/2024 EXAMINATION: 1. Magnetic resonance imaging (MRI) of the brain and brainstem without and with contrast 2. Magnetic resonance angiography (MRA) of the kbwodo-ng-Pnnihn without and with contrast 3. 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 Magnetic resonance angiography of the bokpcj-fs-Ubuvxn was performed using a separate data acquisition with a non-contrast hctx-xz-kagfms technique and a post-contrast technique to produce axial thin-slice source images. These images were then used to generate maximum intensity projection (MIP) images. Magnetic resonance venography of the dural venous sinuses was performed using a separate data acquisition with a non-contrast 3D phase contrast technique and a post-contrast technique to produce axial thin-slice source images. These images were then used to generate maximum intensity projection (MIP) images. Contrast information: 14 mL Gadoterate Meglumine IV COMPARISON: 08/17/2024 FINDINGS: Examination is severely motion degraded with nondiagnostic vessel wall imaging and the majority of postcontrast sequences. MRI: The scalp and calvarium are normal. The superior sagittal sinus demonstrates normal venous flow. The corpus callosum is normal in shape and signal intensity. The posterior fossa is unremarkable. The pituitary and sella are normal. The brainstem and craniocervical junction are unremarkable. 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 Diffusion weighted images reveal no hyperintensities to suggest acute cerebral infarction. Punctate foci of susceptibility in left caudate. The ventricles are normal in size and position without evidence of hydrocephalus. The paranasal sinuses are normal. Bilateral mastoid effusions. The orbits appear normal; of note the optic nerves are not well evaluated. Normal flow voids are demonstrated in the carotid arteries and basilar artery. MRA: The internal carotid arteries in the head are of normal caliber. There are no areas of vascular narrowing; of note the suspected M2 narrowing seen on prior study is not redemonstrated. The wglgbl-ic-Ixqmti is complete. The anterior and middle cerebral arteries are normal. The vertebral arteries are codominant. The basilar artery is normal. The posterior cerebral arteries are normal. There is no aneurysm or vascular malformation identified. Although MRA is a screening examination, catheter angiography remains the definitive study for small aneurysms, vasculitis, and other vascular abnormalities. MRV: On the MR venogram, normal signal is demonstrated within the superior sagittal, straight, transverse, and sigmoid sinuses. The jugular veins, internal cerebral veins, and vein of Jean Pierre are normal. No luminal filling defects are seen. IMPRESSION: Severely motion degraded examination with nondiagnostic vessel imaging and severely degraded postcontrast sequences. Within this limitation queried right M2 narrowing seen on prior study is not redemonstrated, and the right optic nerve is not well evaluated. No definite interval findings. Dictated by: James Hanson MD The radiology attending physician has personally reviewed this study, and had reviewed and/or edited this written report and agrees with it. Electronically signed by: Julián Harkins M.D. Shailesh Wong MD IMG MRI PROCEDURES Final Resu lt * POCT glucose (08/20/2024 7:55 AM CDT) [facility] Glucose, POC 131 70 - 199 mg/dL Blood 08/20/2024 7:55 AM CDT 08/20/2024 7:55 AM CDT Shailesh Wong MD LAB POCT ORDERABLES - DEVICE Final Result Performing Organization Address [facility] Co de Phone Number [facility] Department [place] [employer] [place] [address] * Neuromuscular Specimen Tracking Inpatient Blood (08/19/2024 11:16 PM CDT) Blood 08/19/2024 11:1 6 PM CDT 08/19/2024 11:16 PM CDT Narrative [facility] - 08/19/2024 11:16 PM CDT Blood draw complete Shailesh Wong MD LAB BLOOD ORDERABLES Final Re sult Performing Organization Address [facility] Co de Phone Number [facility] [place] [employer] [place] [address] * Immunotyping, serum with interpretation (08/19/2024 11:16 PM CDT) [facility] Immunosubtraction Please see comment Comment: NO PARAPROTEIN DETECTED Reviewed and signed by Elmo Luna MD, PhD 08/20/2024 Blood 08/19/2024 11:1 6 PM CDT 08/19/2024 11:32 PM CDT us Shailesh Wong MD LAB BLOOD ORDERABLES Final Re sult [facility] [place] [address] * (ABNORMAL) Lupus Anticoagulant Panel plus Reflexes (08/19/2024 11:16 PM CDT) PT 12.8 9.7 - 13.0 sec INR 1.18 0.90 - 1.20 [facility] Comment: Interpretive data Oral anticoagulant therapeutic ranges: Venous thromboembolism prophylaxis or treatment: 2.0-3.0 CARDIOLOGY Standard range: 2.0-3.0 High-intensity range: 2.5-3.5 Refer to indication-specific guidelines for appropriate target ranges for prosthetic heart valve replacement. Current interpretive data was last revised on 2019. aPTT 36 28 - 38 sec [facility] Comment: Interpretive Data Heparin therapeutic range: 66.0 - 100.0 seconds. Range based on correlation with therapeutic heparin activity range of 0.3 - 0.7 Units/mL. Current interpretive data was last revised on 2023. DRVVT screen ratio 1.45(H) 0.00 - 1.20 Ratio [facility] DRVVT confirm ratio 1.22 Ratio [facility] DRVVT S/C Ratio 1.18 0.00 - 1.20 Ratio [facility] SCT Screen Ratio 1.47(H) 0.00 - 1.16 Ratio [facility] SCT Confirm Ratio 1.17 Ratio [facility] SCT S/C Ratio 1.25(H) 0.00 - 1.16 Ratio [facility] Lupus anticoagulant, interp Positive( A) [facility] Comment: Interpretive data Lupus anticoagulants (LA) are acquired autoantibodies that interfere with invitro clotting in a phospholipid-dependent manner and are associated with an increased risk of thromboembolic events and complications. Routine APTT and PT reagents are not sensitive to inhibition by LA, and should not be used as screening tests. The laboratory follows ISTH 2009 guidelines (Pengo, 2009) for LA testing and interpretation: Two sensitive methods performed in parallel improve sensitivity. One activates the intrinsic pathway (Silica-APTT) and one activates the common pathway (dilute Ryan's viper venom time - dRVVT). Each method begins with a SCREEN step, and if neither is prolonged, no further testing is performed and the interpretation is: NO LA DETECTED. If either screening test is prolonged, then additional steps are performed to provide specificity. A POSITIVE LA result occurs if either one or both tests produce a positive CONFIRM result. An INDETERMINATE result means results cannot distinguish between coagulopathy and a weak LA. Consider retesting when PT/INR is less prolonged, if clinical indicated. To support laboratory confirmation of antiphospholipid syndrome, persistence of a positive LA result should be verified by repeat testing at least 12 weeks later (Darrell, 2006). Prior to LA testing, the laboratory screens patient plasma samples for evidence of heparin contamination, which is neutralized prior to LA testing, and the following interfering conditions which require canceling LA testing: INR >3.0, fibrinogen < 100 mg/dl, use of direct oral or IV anticoagulants other than heparin. References: 1) Michael V, Kat A, [place] JH, Ortroy TL, Kim M, De Deborah PG. Update of the guidelines for lupus anticoagulant detection. J Thromb Haemost. 2009; 7:6720-8525. 2. Darrell S. et al. International consensus statement on an update of the classification criteria for definite antiphospholipid syndrome (APS). J Thromb Haemost. 2006; 4:295-306. Current interpretive data was last revised on 2018 Blood 08/19/2024 11:1 6 PM CDT 08/20/2024 12:33 AM CDT us Shailesh Wong MD LAB BLOOD ORDERABLES Final Re sult [facility] Department [place] [address] * Miscellaneous Test Sendout Chemistry (08/19/2024 11:16 PM CDT) Test name Varicella-Zos ter Virus (VZV) Antibody, IgG & IgM, Serum Result 1 Specimen Type: Serum Result: See scanned result in Medical Record. [facility] Blood 08/19/2024 11:1 6 PM CDT 08/21/2024 1:25 PM CDT Result [facility] Mark Hernandez MD LAB BLOOD ORDERABLES Keyona l Result Performing Organization Address [facility] de Phone Number [facility] [place] [employer] [place] [address] * (ABNORMAL) Immunoglobulin free light chains (08/19/2024 11:16 PM CDT) Jennette/Lambda ratio [facility] 0.88 0.26 - 1.65 Comment: Interpretive Data The Binding Site FreeLite assay procedure was used. Results from different manufacturers or methods may not be comparable. Serial testing should be performed using the same methods and instrumentation. Current Interpretive Data was last revised on 2023. Jennette free light chain [facility] 2.83(H) 0.33 - 1.94 mg/dL [facility] Comment: Interpretive Data The Binding Site FreeLite assay procedure was used. Results from different manufacturers or methods may not be comparable. Serial testing should be performed using the same methods and instrumentation. Current Interpretive Data was last revised on 2023. Lambda free light chain [facility] 3.22(H) 0.57 - 2.63 mg/dL [facility] Comment: Interpretive Data The Binding Site FreeLite assay procedure was used. Results from different manufacturers or methods may not be comparable. Serial testing should be performed using the same methods and instrumentation. Current Interpretive Data was last revised on 2023. Blood 08/19/2024 11:1 6 PM CDT 08/19/2024 11:32 PM CDT Shailesh Wong MD LAB BLOOD ORDERABLES Final Re sult Performing Organization Address [facility]/ZIP Co de Phone Number [facility] [place] [employer] [place] [address] * (ABNORMAL) Cardiolipin antibody, IgG (08/19/2024 11:16 PM CDT) Cardiolipin, IgG 72.3(H) <=19.9 GPL U/mL Comment: Interpretive Data Negative: <20 GPL U/mL Positive: > or = 20 GPL U/mL Anticardiolipin antibodies are associated with certain clinical events including unexplained arterial and venous thromboemboli, and unexplained morbidity. However, detection of low levels of anticardiolipin antibodies occurs in both healthy individuals and patients with co-morbidities not associated with the antiphospholipid antibody (APA) syndrome including inflammatory and infectious conditions. In order to improve specificity, the International Congress on Antiphospholipid Antibodies recommends ACL antibodies of IgG or IgM isotype present in medium or high titer (e.g. > 40 GPL, or >the 99th percentile), on two or more occasions, at least 12 weeks apart, to support a diagnosis of antiphospholipid syndrome. The cutoff for this assay was developed from data based on the 99th percentile. In addition, the International Congress on Antiphospholipid Antibodies does not recommend testing for IgA ELISEO. These results were obtained with the [employer] 2200 System. Cardiolipin IgG values obtained with different manufacturers' assay methods may not be used interchangeably. Current interpretive data was last revised on 2016. Blood 08/19/2024 11:1 6 PM CDT 08/19/2024 11:32 PM CDT us Shailesh Wong MD LAB BLOOD ORDERABLES Final Re sult Performing Organization Address City/State/[facility] Co de Phone Number [facility] Department [place] [address] * Beta 2 glycoprotein IgM Ab (08/19/2024 11:16 PM CDT) Beta-2 glycoprotein I, IgM 0.2 <=19.9 units/mL Comment: Interpretive Data Negative: <20 U/mL Positive: > or = 20 U/mL Beta- 2 glycoprotein 1 (Beta-2 GP1) antibodies are a more specific marker of thrombotic risk. It is expected that some samples will be ACL positive and Beta- 2 GP1 negative. In order to improve specificity, the International Congress on Antiphospholipid Antibodies recommends Beta-2 GP1 antibodies of IgG or IgM isotype (> the 99th percentile), obtained twice, at least 12 weeks apart, to support a diagnosis of antiphospholipid syndrome. The cutoff for this assay was developed from data based on the 99th percentile. The Beta-2 GP1 IgM test can produce false positive results due to cross-reactivity with Rheumatoid factor. These results were obtained with the [employer] 2200 System. Beta-2 GP1 IgM values obtained with different manufacturers' assay methods may not be used interchangeably. Current interpretive data was last revised on 2016. Blood 08/19/2024 11:1 6 PM CDT 08/19/2024 11:32 PM CDT us Shailesh Wong MD LAB BLOOD ORDERABLES Final Re sult [facility] Department [place] [address] * (ABNORMAL) Beta 2 glycoprotein IgG Ab (08/19/2024 11:16 PM CDT) [facility] Beta-2 glycoprotein I, IgG 69.0(H) <=19.9 units/mL Comment: Interpretive Data Negative: <20 U/mL Positive: > or = 20 U/mL Beta-2 glycoprotein 1 (Beta-2 GP1) antibodies are a more specific marker of thrombotic risk. It is expected that some samples will be ACL positive and Beta- 2 UC3rcepenlt. In order to improve specificity, the International Congress on Antiphospholipid Antibodies recommends Beta-2 GP1 antibodies of IgG or IgM isotype (> the 99th percentile), obtained twice, at least 12 weeks apart, to support a diagnosis of antiphospholipid syndrome. The cutoff for this assay was developed from data based on the 99th percentile. These results were obtained with the [employer] 2200 System. Beta 2GP1 IgG values obtained with different manufacturers' assay methods may not be used interchangeably. Current interpretive data was last revised on 2016. Blood 08/19/2024 11:1 6 PM CDT 08/19/2024 11:32 PM CDT Shailesh Wong MD LAB BLOOD ORDERABLES Final Re sult Performing Organization Address [facility] de Phone Number [facility] [place] [employer] [place] [address] * PR3 - proteinase 3, Ab (08/19/2024 11:16 PM CDT) Proteinase 3 ab <0.2 <=0.9 Ab Index Comment: Interpretive Data Negative: <1 Ab Index Positive: > or = 1 Ab Index Current interpretive data was last revised on 2016. Blood 08/19/2024 11:1 6 PM CDT 08/19/2024 11:32 PM CDT Shailesh Wong MD LAB BLOOD ORDERABLES Final Re sult Performing Organization Address [facility] Co de Phone Number [facility] [employer] [place] [address] * MPO - myeloperoxidase antibody (08/19/2024 11:16 PM CDT) Pathologist [facility] Myeloperoxidase ab <0.2 <=0.9 Ab Index Comment: Interpretive Data Negative: <1 Ab Index Positive: > or = 1 Ab Index Current interpretive data was last revised on 2016. Blood 08/19/2024 11:1 6 PM CDT 08/19/2024 11:32 PM CDT Shailesh Wong MD LAB BLOOD ORDERABLES Final Re sult Performing Organization Address [facility] [place] [address] * Cyclic citrul peptide antibody, IgG (08/19/2024 11:16 PM CDT) CCP Ab <0.5 <=2.9 units/mL Comment: Interpretive data Negative: <3 units/mL Positive: > or equal to 3 units/mL Current interpretive data was last revised on 2016. Blood 08/19/2024 11:1 6 PM CDT 08/19/2024 11:32 PM CDT Shailesh Wong MD LAB BLOOD ORDERABLES Final Re sult [facility] Department [place] [address] * Cardiolipin antibody, IgM (08/19/2024 11:16 PM CDT) [facility] Cardiolipin, IgM 0.2 <=19.9 MPL U/mL Comment: Interpretive Data Negative: <20 MPL U/mL Positive: > or = 20 MPL U/mL Anticardiolipin antibodies are associated with certain clinical events including unexplained arterial and venous thromboemboli, and unexplained morbidity. However, detection of low levels of anticardiolipin antibodies occurs in both healthy individuals and patients with co-morbidities not associated with the antiphospholipid antibody (APA) syndrome including inflammatory and infectious conditions. In order to improve specificity, the International Congress on Antiphospholipid Antibodies recommends ACL antibodies of IgG or IgM isotype present in medium or high titer (e.g. > 40 MPL, or >the 99th percentile), on two or more occasions, at least 12 weeks apart, to support a diagnosis of antiphospholipid syndrome. The cutoff for this assay was developed from data based on the 99th percentile. In addition, the International Congress on Antiphospholipid Antibodies does not recommend testing for IgA ELISEO. The ACL IgM test can produce false positive results due to cross-reactivity with Rheumatoid factor, dsDNA or certain infectious disease antibodies. These results were obtained with the [employer] 2200 System. Cardiolipin IgM values obtained with different manufacturers' assay methods may not be used interchangeably. Current interpretive data was last revised on 2016. Blood 08/19/2024 11:1 6 PM CDT 08/19/2024 11:32 PM CDT Shailesh Wong MD LAB BLOOD ORDERABLES Final Re sult [facility] [place] [address] * (ABNORMAL) Rheumatoid factor (08/19/2024 11:16 PM CDT) Rheumatoid factor, quant 21.0(H) 0.1 - 15.0 IUnits/mL Blood 08/19/2024 11:1 6 PM CDT 08/19/2024 11:32 PM CDT Result [facility] Shailesh Wong MD LAB BLOOD ORDERABLES Final Re sult Performing Organization Address [facility] Co de Phone Number [facility] [place] [address] * eGFR (08/19/2024 10:24 PM CDT) eGFR 84 >=60 mL/min/1. 73 m2 Comment: Interpretive Data Reference Interval Normal >/= 90 mL/min/1.73m2 Mildly decreased* 60 - 89 mL/min/1.73m2 Mildly to moderately decreased 45 - 59 mL/min/1.73m2 Moderately to severely decreased 30 - 44 mL/min/1.73m2 Severely decreased 15 - 29 mL/min/1.73m2 Kidney Failure < 15 mL/min/1.73m2 *Relative to young adult level Estimated glomerular filtration rate is determined by the 2020 CKD-EPI equation recommended by the National Kidney Foundation (A Unifying Approach to GFR Estimation: Recommendations of the NKF-ASK Task Force on Reassessing the Inclusion of Race in Diagnosing Kidney Disease, JASN 202). The CKD-EPI equation should not be used for patients with unstable renal function and has not been validated in children and those over 70. Current interpretive data was last reviewed 2021. Blood 08/19/2024 10:2 4 PM CDT 08/19/2024 10:53 PM CDT Mark Hernandez MD LAB BLOOD ORDERABLES Keyona l Result Performing Organization Address [facility] Co de Phone Number [facility] [place] [place] [address] * (ABNORMAL) Calcium, ionized (08/19/2024 10:24 PM CDT) [facility] Calcium, Ionized 4.47(L) 4.50 - 5.10 mg/dL Blood 08/19/2024 10:2 4 PM CDT 08/19/2024 10:38 PM CDT Shailesh Wong MD LAB BLOOD ORDERABLES Final Re sult Performing Organization Address [facility] Co de Phone Number [facility] [place] [place] [address] * Vitamin D 25 hydroxy (08/19/2024 10:24 PM CDT) [facility] Vitamin D 25-OH 36 30 - 80 ng/mL Blood 08/19/2024 10:2 4 PM CDT 08/19/2024 10:53 PM CDT Shailesh Wong MD LAB BLOOD ORDERABLES Final Re sult Performing Organization Address [facility] Co de Phone Number [facility] [place] [address] * (ABNORMAL) CBC without differential (08/19/2024 10:24 PM CDT) [facility] WBC 7.8 3.8 - 9.9 K/cumm Hgb 10.0(L) 11.9 - 15.5 g/dL [facility] Hct 28.6(L) 35.6 - 45.5 % [facility] Plt 196 150 - 400 K/cumm [facility] MPV 9.6 9.1 - 12.3 fL [facility] RBC 3.04(L) 3.90 - 5.20 M/cumm [facility] MCV 94.1 81.3 - 96.4 fL [facility] MCH 32.9 27.1 - 33.3 pg [facility] MCHC 35.0 32.3 - 35.7 g/dL [facility] RDW CV 14.5 11.1 - 14.9 % [facility] [facility] RDW SD 49.3(H) 35.7 - 48.1 fL [facility] NRBC abs 0.00 0.00 - 0.01 K/cumm [facility] Blood 08/19/2024 10:2 4 PM CDT 08/19/2024 10:53 PM CDT us Mark Hernandez MD LAB BLOOD ORDERABLES Keyona carmela Result [facility] Department [place] [address] * (ABNORMAL) Basic metabolic panel (08/19/2024 10:24 PM CDT) Pathologist [facility] Sodium 129(L) 135 - 145 mmol/L Potassium, pl 4.1 3.3 - 4.9 mmol/L [facility] Chloride 95(L) 97 - 110 mmol/L [facility] CO2 24 22 - 32 mmol/L [facility] Anion gap 10 2 - 15 mmol/L [facility] BUN 8 6 - 25 mg/dL [facility] Creatinine 0.76 0.60 - 1.10 mg/dL [facility] Glucose 184 70 - 199 mg/dL [facility] Comment: Interpretive Data Fasting glucose >/= 126 mg/dl is diagnostic for diabetes. Fasting is defined as no caloric intake for at least 8 hours. Fasting glucose between 100 mg/dl to 125 mg/dl is diagnostic of prediabetes. In a patient with classic symptoms of hyperglycemia or hyperglycemic crisis, a random glucose >/= 200 mg/dl is diagnostic for diabetes. In the absence of unequivocal hyperglycemia, results should be confirmed by repeat testing. The classification and Diagnosis of Diabetes Diabetes Care 2021; 46: S19-S40. Current interpretive data was last revised 2022. Calcium 8.8 8.5 - 10.3 mg/dL [facility] Blood 08/19/2024 10:2 4 PM CDT 08/19/2024 10:53 PM CDT Mark Hernandez MD LAB BLOOD ORDERABLES Keyona l Result Performing Organization Address [facility] Co de Phone Number [facility] [place] [place] [address] * POCT glucose (08/19/2024 9:51 PM CDT) Glucose, POC 181 70 - 199 mg/dL Blood 08/19/2024 9:51 PM CDT 08/19/2024 9:51 PM CDT Shailesh Wong MD LAB POCT ORDERABLES - DEVICE Final Result Performing Organization Address [facility] Co de Phone Number [facility] [employer] [place] [address] * POCT glucose (08/19/2024 5:50 PM CDT) Glucose, POC 93 70 - 199 mg/dL Blood 08/19/2024 5:50 PM CDT 08/19/2024 5:50 PM CDT Shailesh Wong MD LAB POCT ORDERABLES - DEVICE Final Result Performing Organization Address [facility] Co de Phone Number [facility] [employer] [place] [address] * US Head Neck Soft Tissue (08/19/2024 3:51 PM CDT) Anatomical Region Laterality Modality Head and Neck N/A Ultrasound 08/19/2024 4:07 PM CDT Impressions 08/19/2024 4:10 PM CDT 1. Nonenlarged, morphologically abnormal 0.7 cm left supraclavicular lymph node corresponds to the FDG avid node on same day PET/CT. This node will be unusually challenging for percutaneous biopsy given the configuration of the supraclavicular fossa. 2. Multiple morphologically normal and not enlarged suboccipital lymph nodes are seen, which likely do not correlate with the intensely FDG avid subcutaneous left suboccipital nodule seen on same-day PET/CT, which is located above the level of the patient's ears and is likely above the patient's hairline. Given the patient's mental status and inability to fully cooperate after recently receiving sedation for same day temporal artery biopsy, this subcutaneous nodule was unable to be visualized. Recommend correlation with pending pathology results from same day temporal artery biopsy, and if clinically indicated, a repeat ultrasound could be performed to attempt to visualize this left suboccipital nodule for possible percutaneous biopsy. The Non Critical results were discussed with Dr. Cox by Dr. Maggi Torres on 08/19/2024 at 3:55 PM Dictated by: Maggi Torres M.D. The radiology attending physician has personally reviewed this study, and had reviewed and/or edited this written report and agrees with it. Electronically signed by: Milo Murdock M.D. Narrative 08/19/2024 4:10 PM CDT EXAMINATION: US SOFT TISSUE HEAD NECK HISTORY: 69-year-old presenting for ultrasound-guided core biopsy of FDG avid left supraclavicular lymph node and suboccipital nodule COMPARISON: PET CT 08/19/2024 FINDINGS: There is a round and hypoechoic left supraclavicular lymph node with loss of the fatty hilum that measures 0.7 cm, that is likely corresponding to the FDG avid lymph node seen on same-day PET/CT. Given the patient's body habitus and the deep concavity of the patient's left supraclavicular fossa, this node would be difficult to biopsy percutaneously, particularly given the patient's current level of consciousness. Multiple morphologically normal and nonenlarged suboccipital lymph nodes were seen, which likely do not correlate with the intensely hypermetabolic subcutaneous soft tissue nodule in the left suboccipital region seen on PET/CT, which is above the level of the patient's ears and likely obscured by the patient's hairline. Given the patient's mental status and inability to cooperate after recently receiving sedation for same day temporal artery biopsy, this subcutaneous nodule was unable to be visualized. Procedure Note Milo Murdock MD - 08/19/2024 EXAMINATION: US SOFT TISSUE HEAD NECK HISTORY: 69-year-old presenting for ultrasound-guided core biopsy of FDG avid left supraclavicular lymph node and suboccipital nodule COMPARISON: PET CT 08/19/2024 FINDINGS: There is a round and hypoechoic left supraclavicular lymph node with loss of the fatty hilum that measures 0.7 cm, that is likely corresponding to the FDG avid lymph node seen on same-day PET/CT. Given the patient's body habitus and the deep concavity of the patient's left supraclavicular fossa, this node would be difficult to biopsy percutaneously, particularly given the patient's current level of consciousness. Multiple morphologically normal and nonenlarged suboccipital lymph nodes were seen, which likely do not correlate with the intensely hypermetabolic subcutaneous soft tissue nodule in the left suboccipital region seen on PET/CT, which is above the level of the patient's ears and likely obscured by the patient's hairline. Given the patient's mental status and inability to cooperate after recently receiving sedation for same day temporal artery biopsy, this subcutaneous nodule was unable to be visualized. IMPRESSION: 1. Nonenlarged, morphologically abnormal 0.7 cm left supraclavicular lymph node corresponds to the FDG avid node on same day PET/CT. This node will be unusually challenging for percutaneous biopsy given the configuration of the supraclavicular fossa. 2. Multiple morphologically normal and not enlarged suboccipital lymph nodes are seen, which likely do not correlate with the intensely FDG avid subcutaneous left suboccipital nodule seen on same-day PET/CT, which is located above the level of the patient's ears and is likely above the patient's hairline. Given the patient's mental status and inability to fully cooperate after recently receiving sedation for same day temporal artery biopsy, this subcutaneous nodule was unable to be visualized. Recommend correlation with pending pathology results from same day temporal artery biopsy, and if clinically indicated, a repeat ultrasound could be performed to attempt to visualize this left suboccipital nodule for possible percutaneous biopsy. The Non Critical results were discussed with Dr. Cox by Dr. Maggi Torres on 08/19/2024 at 3:55 PM Dictated by: Maggi Torres M.D. The radiology attending physician has personally reviewed this study, and had reviewed and/or edited this written report and agrees with it. Electronically signed by: Milo Murdock M.D. us Shailesh Wong MD IMG US PROCEDURES Final Resul t * BIOPSY - TEMPORAL ARTERY (08/19/2024 1:29 PM CDT) Anatomical Region Laterality Modality X-Ray Angiograph y Narrative 08/19/2024 2:36 PM CDT Please see OpNote for result. us Ramesh Graham MD SURGICAL CASE ORDERS Fin al Result * Surgical pathology (08/19/2024 1:13 PM CDT) Tissue (Temporal artery, biopsy) 08/19/2024 1:13 PM CDT Narrative PATHOLOGY [facility] - 08/21/2024 10:24 PM CDT EPIC results best viewed via link to PDF [facility] [place] [address] Note to Patients: This report may contain a detailed description of human tissue sent by a health care provider to the laboratory for pathologic evaluation. The content of this report is essential for diagnosis and may provide important critical findings. This information may be unfamiliar to patients to review without a medical professional present. It is advised that the patient review this report in the presence of a health care provider who can answer questions and explain the details. SURGICAL PATHOLOGY REPORT FINAL Patient Name: TOÑA YO Gender: F : 1955 (Age: 69) Address: [address] [place] [id number] Hospital #: [id number] Taken:08/19/2024 Received:08/19/2024 Reported: 08/21/2024 Patient Type: [facility] Inpatient Service: Neurology Location: [facility] 0113 Physician(s): Ramesh Graham M.D. Alison Perez M.D. Vangie Travis MD Diagnosis: Artery, right temporal, biopsy - No evidence of arteritis - Mild arterial sclerosis - See comment ma/08/20/2024 11:22 By this signature, I attest that the above diagnosis is based upon my personal examination of the slides(and/or other material indicated in the diagnosis). Karthik Marsh MD Report Electronically Reviewed and Signed Out By Karthik Marsh MD 08/21/2024 22:24:33 Microscopic Description and Comment: There is a single vessel in the vasa vasorum with minimal perivascular lymphocytic inflammation; the significance of this is unclear. Otherwise, there are no features of arteritis, with no evidence of medial inflammation or damage. The biopsy show some mild changes of arterial sclerosis, but is otherwise essentially normal. Since arteritis in giant cell arteritis can be segmental, the possibility of sampling error due to s kip lesions cannot be excluded. Multiple recut H&E stained levels were examined, in order to exclude more significant findings Opal Keane M.D., PhD History: The patient is a 69-year-old woman with a history of urticarial vasculitis, now presenting with headache and vision changes. Operative procedure: Right temporal artery biopsy. Specimen(s) Received: A: Right temporal artery biopsy Gross Description: Received in formalin, labeled with the patient s identifiers and right temporal artery biopsy is a 1.6 cm in length x 0.2 cm diameter tubular fragment of soft tissue. The specimen is inked black and sectioned to reveal a lumen measuring 0.1 cm in diameter. Labeled A1. Jar 0. sxst/08/19/2024 16:43 PA(s): Renate Philippe By this signature, I attest that the above diagnosis is based upon my personal examination of the slides(and/or other material). Addenda/Procedures The performance characteristics of some immunohistochemical stains, fluorescence in-situ hybridization tests and immunophenotyping by flow cytometry cited in this report (if any) were determined by the Surgical Pathology and Flow Cytometry Departments at [facility] as part of an ongoing software quality assurance analyst program and in compliance with federally mandated regulations drawn from the Clinical Laboratory Improvement Act of 1988 (CLIA '88). Some of these tests rely on the use of analyte specific reagents and are subject to specific labeling requirements by the US Food and Drug Administration. Such diagnostic tests may only be performed in a facility that is certified by the Department of Health and Human Services as a high complexity laboratory under CLIA '88. The FDA has determined that such clearance or approval is not necessary. This test is used for clinical purposes. It should not be regarded as investigational or for research. Nevertheless, federal rules concerning the medical use of analyte specific reagents require that the following disclaimer be attached to the report: This test was developed and its performance characteristics determined by the Surgical Pathology and Flow Cytometry Departments of [facility]. It has not been cleared or approved by the U. S. Food and Drug Administration. IMAGES AND SCANNED DOCUMENTS, IF INCLUDED, ONLY VIEWABLE IN PDF VERSION OF REPORT Ramesh Graham MD LAB PATHOLOGY ORDERABLES Final Result PATHOLOGY [facility] [address] [place], [place] [phone] * Surgical pathology (08/19/2024 12:05 PM CDT) Tissue (Skin, biopsy) 08/19/2024 12:05 PM CDT 08/19/2024 12:24 PM CDT Narrative PATHOLOGY [facility] - 08/21/2024 11:22 AM CDT EPIC results best viewed via link to PDF [facility] [place] [address] Note to Patients: This report may contain a detailed description of human tissue sent by a health care provider to the laboratory for pathologic evaluation. The content of this report is essential for diagnosis and may provide important critical findings. This information may be unfamiliar to patients to review without a medical professional present. It is advised that the patient review this report in the presence of a health care provider who can answer questions and explain the details. SURGICAL PATHOLOGY REPORT FINAL Patient Name: TOÑA YO Gender: F : 1955 (Age: 69) Address: [address] [place] [id number] Hospital #: [id number] Taken:08/19/2024 Received:08/19/2024 Reported: 08/21/2024 Patient Type: [facility] Inpatient Service: Neurology Location: [place] [address] Physician(s): MD Janna Winters M.D. Aaron John Lacy, MD William Stephen Murphy, MD Spencer X Ng, MD PhD Diagnosis: A. Skin, right ankle, punch biopsy: Sparse superficial perivascular dermatitis Note: The histopathologic changes are subtle and nonspecific. There is no evidence of a vasculitis in these sections. B. Skin/oral for IF, right ankle, punch biopsy for direct immunfluorescence: Granular deposition of C3 within superficial dermal blood vessels Note: These findings are nonspecific and may be seen in the absence of vasculitis. sxt/08/20/2024 11:27 By this signature, I attest that the above diagnosis is based upon my personal examination of the slides(and/or other material indicated in the diagnosis). Shailesh Davis M.D. Report Electronically Reviewed and Signed Out By Shailesh Davis M.D. 08/21/2024 11:22:52 Microscopic Description and Comment: A. There is a sparse superficial perivascular inflammatory cell infiltrate that contains lymphocytes and histiocytes. (L30.9) B. The sections were reacted with antibodies to IgG, IgA, IgM, C3 and fibrinogen. There is granular deposition of C3 within the aviles of superficial dermal blood vessels. Otherwise, significant immunofluorescence staining is not seen. Microscopic slide review and interpretation for this case was performed at the Dermatopathology Center, Department of Pathology and Immunology, [facility], [address] [place] [address], [address], [place], [place] [id number] [place] [address] # [id number] Demetria Loco M.D. History: The patient is a 69-year-old woman presenting with a history of urticarial vasculitis; rule out vasculitis. Operative procedure: Right ankle skin punch biopsies. Specimen(s) Received: A: Skin, right ankle, punch biopsy B: Skin/oral for IF, right ankle, punch biopsy for direct immunfluorescence Gross Description: Received in two jars labeled with the patient's identifiers. A. Received in formalin is a 0.4 x 0.4 cm punch of skin excised to a depth of 0.5 cm. The skin surface is brown-pena and grossly unremarkable. The margin of excision is inked blue and the specimen is bisected. The tissue is placed on edge between blue sponges. Labeled A1. Jar 0. B. Received in Victoriano's solution is a 0.3 x 0.4 cm punch of skin excised to a depth of 0.4 cm. The skin surface is pena-brown and grossly unremarkable. The tissue is submitted entirely for immunofluorescence. sxst08/19/2024 12:39 PA(s): Renate Philippe By this signature, I attest that the above diagnosis is based upon my personal examination of the slides(and/or other material). Addenda/Procedures The performance characteristics of some immunohistochemical stains, fluorescence in-situ hybridization tests and immunophenotyping by flow cytometry cited in this report (if any) were determined by the Surgical Pathology and Flow Cytometry Departments at [facility] as part of an ongoing software quality assurance analyst program and in compliance with federally mandated regulations drawn from the Clinical Laboratory Improvement Act of 1988 (CLIA '88). Some of these tests rely on the use of analyte specific reagents and are subject to specific labeling requirements by the US Food and Drug Administration. Such diagnostic tests may only be performed in a facility that is certified by the Department of Health and Human Services as a high complexity laboratory under CLIA '88. The FDA has determined that such clearance or approval is not necessary. This test is used for clinical purposes. It should not be regarded as investigational or for research. Nevertheless, federal rules concerning the medical use of analyte specific reagents require that the following disclaimer be attached to the report: This test was developed and its performance characteristics determined by the Surgical Pathology and Flow Cytometry Departments of [facility]. It has not been cleared or approved by the U. S. Food and Drug Administration. IMAGES AND SCANNED DOCUMENTS, IF INCLUDED, ONLY VIEWABLE IN PDF VERSION OF REPORT us Shailesh Wong MD LAB PATHOLOGY ORDERABLES Keyona casey Result PATHOLOGY [facility] 3rd Floor [place], [place] [phone] * US VEIN DUPLEX LOWER EXTREMITY RIGHT LIMITED, UNILATERAL (08/19/2024 10:31 AM CDT) Anatomical Region Laterality Modality Vascular Right Ultrasound 08/19/2024 10:2 0 AM CDT Narrative 08/19/2024 6:52 PM CDT [facility] - Department of Vascular Surgery, Vascular Laboratory [address] [place] [address] Lower Extremity Venous Ultrasound Report Patient Name: TOÑA YO : 1955 (69y 1m) Study Date: 08/19/2024 10:20:09 AM Gender: F Tech: [place] Location: [id number] Ref Provider: SHAILESH WONG Quality: Adequate Order Provider: SHAILESH WONG PROCEDURES: Vascular Report: Venous Duplex imaging was performed in the right lower extremity. The common femoral, femoral, popliteal, posterior tibial, peroneal veins were evaluated for patency, spontaneity and phasicity with Doppler, compression and augmentation maneuvers. Great saphenous vein proximal at the junction was evaluated with compression maneuvers. INDICATIONS: Pain in Leg, Right, query DVT - FINDINGS: Performing Polymer Tester: Janna Cruz RVT. Right: Venous Doppler signals in the right lower extremity are within normal limits for spontaneity and phasicity and respond normally to augmentation maneuvers. No evidence of deep vein thrombus by duplex, proximal to the calf. Comments: Contralateral common femoral vein is imaged for comparison and is patent. CONCLUSIONS: 1. There is no evidence of acute deep vein thrombosis on the right. Noninvasive venous studies cannot rule out isolated calf vein obstruction. HISTORY: HTN, VASCULITIS. PREVIOUS STUDIES: No previous studies for comparison. DISCLAIMER: The study images and the final report will be retained in the patient chart by the Vascular Laboratory for the legally required time period. This chart constitutes the legal record of any testing performed. ATTESTATION: I have reviewed and interpreted the pertinent images and measurements of this study. I attest to the conclusions in the final report that is provided above. Electronically Signed By: Tommy Way MD [facility] [phone] 08/19/2024 6:17:28 PM CDT Procedure Note Tommy Way MD - 08/19/2024 [facility] - Department of Vascular Surgery,Vascular Laboratory [address] [place] [address] Lower Extremity Venous Ultrasound Report Patient Name: TOÑA YO : 1955 (69y 1m) Study Date: 08/19/2024 10:20:09 AM Gender: F Tech: [place] Location: [id number] Ref Provider: SHAILESH WONG Quality: Adequate Order Provider: SHAILESH WONG PROCEDURES: Vascular Report: Venous Duplex imaging was performed in the right lower extremity. Thecommon femoral, femoral, popliteal, posterior tibial, peroneal veins were evaluated forpatency, spontaneity and phasicity with Doppler, compression and augmentationmaneuvers. Great saphenous vein proximal at the junction was evaluated with compressionmaneuvers. INDICATIONS: Pain in Leg, Right, query DVT - FINDINGS: Performing Polymer Tester: Janna Cruz RVT. Right: Venous Doppler signals in the right lower extremity are within normallimits for spontaneity and phasicity and respond normally to augmentation maneuvers.No evidence of deep vein thrombus by duplex, proximal to the calf. Comments: Contralateral common femoral vein is imaged for comparison and ispatent. CONCLUSIONS: 1. There is no evidence of acute deep vein thrombosis on the right.Noninvasive venous studies cannot rule out isolated calf vein obstruction. HISTORY: HTN, VASCULITIS. PREVIOUS STUDIES: No previous studies for comparison. DISCLAIMER: The study images and the final report will be retained in the patientchart by the Vascular Laboratory for the legally required time period. This chartconstitutes the legal record of any testing performed. ATTESTATION: I have reviewed and interpreted the pertinent images and measurements ofthis study. I attest to the conclusions in the final report that is provided above. Electronically Signed By: Tommy Way MD [facility] [phone] 08/19/2024 6:17:28 PM CDT Shailesh Wong MD [facility] PROCEDURES Final Resul t * PET/CT FDG Skull to Thigh (08/19/2024 9:17 AM CDT) Anatomical Region Laterality Modality N/A Positron Emissio n Tomography (PET) 08/19/2024 10:5 3 AM CDT Impressions 08/19/2024 11:39 AM CDT 1. Focal linear moderate FDG uptake in the medial right temporal lobe, at the region of the parahippocampal gyrus. Differential is broad, but this may represent vasculitis versus encephalitis. Recommend close attention to this region on the subsequent brain MRI. 2. Multiple subcentimeter head and neck lymph nodes with mild or moderate FDG uptake. Left supraclavicular lymph node is amenable to biopsy. 3. Moderate to intensely hypermetabolic left suboccipital scalp lesion is indeterminate but could represent a lymph node. This is also amenable to biopsy. 4. Nonspecific linear moderate FDG uptake superior to the pancreatic head. This can be further evaluated with follow-up postcontrast CT. Dictated by: Hemalatha Vitale MD The radiology attending physician has personally reviewed this study, and had reviewed and/or edited this written report and agrees with it. Electronically signed by: DO Iván Witt 08/19/2024 11:39 AM CDT EXAMINATION: TUMOR FDG-PET/CT IMAGING DATE OF STUDY: 08/19/2024 SCANNER: [facility] [employer] (NV1). This is a high-resolution scanner, which can result in higher SUVs (and even detection of previously unrecognized small lesions) compared to older scanners. RADIOPHARMACEUTICAL: 15.79 mCi F-18 Fluorodeoxyglucose (FDG) i.v. Injection site: Left antecubital HISTORY: 69-year-old female with lymphadenopathy in the left suboccipital region . History of urticarial vasculitis, waxing and waning encephalitis, Bal's thyroiditis, right eye macular degeneration, glaucoma, and HTN who is presenting for acute on chronic right ocular visual changes, headache, and right foot pain. Clinical concern for vasculitis but given lymphadenopathy or other clinical considerations are neuro-sarcoidosis, autoimmune process (giant cell arteritis) or paraneoplastic process. The study is requested for diagnosis. Initial treatment strategy. TECHNIQUE: The patient's fasting blood glucose level, measured by glucometer before injection of FDG, was 94 mg/dL. After intravenous administration of FDG, noncontrast CT images were obtained for attenuation correction and for fusion with emission PET images to allow for anatomical localization of PET findings. Emission PET images were then obtained. The study was interpreted on the [employer] workstation. The mean liver SUV (reported for quality assurance tech purposes) is 2.2. The total scanned area was skull vertex to proximal thighs. Images of the body were obtained starting 52 minutes after injection of tracer. All reported SUVs are maximum SUVs, unless otherwise specified. COMPARISON: Brain MRI on 08/17/2024 DESCRIPTORS OF LESION FDG AVIDITY: Minimal: <= blood pool Mild: > blood pool and <= liver Moderate: > liver and <= 2x SUVmax liver Moderate to marked: >2x SUVmax liver and <= 3x SUVmax liver Marked: > 3x SUVmax liver FINDINGS: There is a focal linear moderate FDG uptake in the medial right temporal lobe image #34- 37. Decreased FDG uptake in the left temporal and right mesial temporal lobes correlating with encephalomalacia changes seen on CT. There is an moderate to intensely hypermetabolic subcutaneous soft tissue thickening in the left suboccipital region, image #44, measuring approximately 2.4 x 1.0 cm, SUV 7.1, likely lymph node. Another minimally hypermetabolic subcentimeter left suboccipital lymph node, image #56. There are multiple mildly prominent subcentimeter hypermetabolic lymph nodes involving the cervical (right level 1B and bilateral cervical level 2-4) and supraclavicular guero station. For reference; -1.7 x 0.8 cm right level 1B lymph node, image numbers 75, SUV 5.3. This is the most FDG avid lymph nodes. -1.0 cm short axis left supraclavicular lymph node, image #94, SUV 4.2. There are multiple subcentimeter bilateral axillary/subpectoral lymph nodes with uptake similar or less than blood pool. -Subcentimeter mildly hypermetabolic focus near the right ureter, likely a lymph node. There is a nonspecific linear moderate FDG uptake superior to the pancreatic head, image #176. Subcentimeter bilateral external iliac lymph nodes with mild FDG uptake. For reference, a 0.6 cm short axis right external iliac lymph node, image #264, SUV 3.5. Mildly hypermetabolic morphologically normal-appearing bilateral inguinal lymph nodes are likely reactive. Additional CT findings: Encephalomalacia of the left temporal pole and right mesial temporal lobe. Mucosal thickening of ethmoidal and bilateral maxillary sinuses. Non-FDG avid hypoattenuating hepatic lesions scattered throughout both lobes likely representing hepatic cysts. Mild coronary artery calcification. Atherosclerotic calcification of the aorta and iliac arteries. Colonic diverticulosis. Degenerative changes of the spine. Tiny hepatic dome calcification, likely a granuloma. Enlarged pulmonary artery. Non-FDG avid 6 mm right lower lobe superior segment pulmonary nodule, image number 136, unchanged from 02/28/2024. Left apical scarring. Procedure Note Swingle, Christopher Esau, DO - 08/19/2024 EXAMINATION: TUMOR FDG-PET/CT IMAGING DATE OF STUDY: 08/19/2024 SCANNER: [facility] [employer] (NV1). This is a high-resolution scanner, which can result in higher SUVs (and even detection of previously unrecognized small lesions) compared to older scanners. RADIOPHARMACEUTICAL: 15.79 mCi F-18 Fluorodeoxyglucose (FDG) i.v. Injection site: Left antecubital HISTORY: 69-year-old female with lymphadenopathy in the left suboccipital region . History of urticarial vasculitis, waxing and waning encephalitis, Bal's thyroiditis, right eye macular degeneration, glaucoma, and HTN who is presenting for acute on chronic right ocular visual changes, headache, and right foot pain. Clinical concern for vasculitis but given lymphadenopathy or other clinical considerations are neuro-sarcoidosis, autoimmune process (giant cell arteritis) or paraneoplastic process. The study is requested for diagnosis. Initial treatment strategy. TECHNIQUE: The patient's fasting blood glucose level, measured by glucometer before injection of FDG, was 94 mg/dL. After intravenous administration of FDG, noncontrast CT images were obtained for attenuation correction and for fusion with emission PET images to allow for anatomical localization of PET findings. Emission PET images were then obtained. The study was interpreted on the [employer] workstation. The mean liver SUV (reported for quality assurance tech purposes) is 2.2. The total scanned area was skull vertex to proximal thighs. Images of the body were obtained starting 52 minutes after injection of tracer. All reported SUVs are maximum SUVs, unless otherwise specified. COMPARISON: Brain MRI on 08/17/2024 DESCRIPTORS OF LESION FDG AVIDITY: Minimal: <= blood pool Mild: > blood pool and <= liver Moderate: > liver and <= 2x SUVmax liver Moderate to marked: >2x SUVmax liver and <= 3x SUVmax liver Marked: > 3x SUVmax liver FINDINGS: There is a focal linear moderate FDG uptake in the medial right temporal lobe image #34- 37. Decreased FDG uptake in the left temporal and right mesial temporal lobes correlating with encephalomalacia changes seen on CT. There is an moderate to intensely hypermetabolic subcutaneous soft tissue thickening in the left suboccipital region, image #44, measuring approximately 2.4 x 1.0 cm, SUV 7.1, likely lymph node. Another minimally hypermetabolic subcentimeter left suboccipital lymph node, image #56. There are multiple mildly prominent subcentimeter hypermetabolic lymph nodes involving the cervical (right level 1B and bilateral cervical level 2-4) and supraclavicular guero station. For reference; -1.7 x 0.8 cm right level 1B lymph node, image numbers 75, SUV 5.3. This is the most FDG avid lymph nodes. -1.0 cm short axis left supraclavicular lymph node, image #94, SUV 4.2. There are multiple subcentimeter bilateral axillary/subpectoral lymph nodes with uptake similar or less than blood pool. -Subcentimeter mildly hypermetabolic focus near the right ureter, likely a lymph node. There is a nonspecific linear moderate FDG uptake superior to the pancreatic head, image #176. Subcentimeter bilateral external iliac lymph nodes with mild FDG uptake. For reference, a 0.6 cm short axis right external iliac lymph node, image #264, SUV 3.5. Mildly hypermetabolic morphologically normal-appearing bilateral inguinal lymph nodes are likely reactive. Additional CT findings: Encephalomalacia of the left temporal pole and right mesial temporal lobe. Mucosal thickening of ethmoidal and bilateral maxillary sinuses. Non-FDG avid hypoattenuating hepatic lesions scattered throughout both lobes likely representing hepatic cysts. Mild coronary artery calcification. Atherosclerotic calcification of the aorta and iliac arteries. Colonic diverticulosis. Degenerative changes of the spine. Tiny hepatic dome calcification, likely a granuloma. Enlarged pulmonary artery. Non-FDG avid 6 mm right lower lobe superior segment pulmonary nodule, image number 136, unchanged from 02/28/2024. Left apical scarring. IMPRESSION: 1. Focal linear moderate FDG uptake in the medial right temporal lobe, at the region of the parahippocampal gyrus. Differential is broad, but this may represent vasculitis versus encephalitis. Recommend close attention to this region on the subsequent brain MRI. 2. Multiple subcentimeter head and neck lymph nodes with mild or moderate FDG uptake. Left supraclavicular lymph node is amenable to biopsy. 3. Moderate to intensely hypermetabolic left suboccipital scalp lesion is indeterminate but could represent a lymph node. This is also amenable to biopsy. 4. Nonspecific linear moderate FDG uptake superior to the pancreatic head. This can be further evaluated with follow-up postcontrast CT. Dictated by: Hemalatha Vitale MD The radiology attending physician has personally reviewed this study, and had reviewed and/or edited this written report and agrees with it. Electronically signed by: Connor Verma DO Shailesh Wong MD IMG PET PROCEDURES Final Resu lt * eGFR (08/19/2024 6:41 AM CDT) eGFR >90 >=60 mL/min/1. 73 m2 Comment: Interpretive Data Reference Interval Normal >/= 90 mL/min/1.73m2 Mildly decreased* 60 - 89 mL/min/1.73m2 Mildly to moderately decreased 45 - 59 mL/min/1.73m2 Moderately to severely decreased 30 - 44 mL/min/1.73m2 Severely decreased 15 - 29 mL/min/1.73m2 Kidney Failure < 15 mL/min/1.73m2 *Relative to young adult level Estimated glomerular filtration rate is determined by the 2020 CKD-EPI equation recommended by the National Kidney Foundation (A Unifying Approach to GFR Estimation: Recommendations of the NKF-ASK Task Force on Reassessing the Inclusion of Race in Diagnosing Kidney Disease, JASN 2020). The CKD-EPI equation should not be used for patients with unstable renal function and has not been validated in children and those over 70. Current interpretive data was last reviewed 2021. Blood 08/19/2024 6:41 AM CDT 08/19/2024 7:32 AM CDT us Shailesh Wong MD LAB BLOOD ORDERABLES Final Re sult [facility] Department [place] [address] * (ABNORMAL) Basic metabolic panel (08/19/2024 6:41 AM CDT) Sodium 130(L) 135 - 145 mmol/L Potassium, pl 3.9 3.3 - 4.9 mmol/L [facility] Chloride 96(L) 97 - 110 mmol/L [facility] CO2 28 22 - 32 mmol/L [facility] Anion gap 6 2 - 15 mmol/L [facility] BUN 8 6 - 25 mg/dL [facility] Creatinine 0.68 0.60 - 1.10 mg/dL [facility] Glucose 98 70 - 199 mg/dL [facility] Comment: Interpretive Data Fasting glucose >/= 126 mg/dl is diagnostic for diabetes. Fasting is defined as no caloric intake for at least 8 hours. Fasting glucose between 100 mg/dl to 125 mg/dl is diagnostic of prediabetes. In a patient with classic symptoms of hyperglycemia or hyperglycemic crisis, a random glucose >/= 200 mg/dl is diagnostic for diabetes. In the absence of unequivocal hyperglycemia, results should be confirmed by repeat testing. The classification and Diagnosis of Diabetes Diabetes Care 2021; 46: S19-S40. Current interpretive data was last revised 2022. Calcium 8.8 8.5 - 10.3 mg/dL [facility] Blood 08/19/2024 6:41 AM CDT 08/19/2024 6:53 AM CDT Shailesh Wong MD LAB BLOOD ORDERABLES Final Re sult Performing Organization Address [facility] Co de Phone Number [facility] [place] [address] * Sodium, urine, random (08/19/2024 1:39 AM CDT) Sodium, ur <20 mmol/L Comment: Repeated and Verified Interpretive Data No reference range established. Current interpretive data was last revised 2018. Urine 08/19/2024 1:39 AM CDT 08/19/2024 2:38 AM CDT Shailesh Wong MD LAB URINE ORDERABLES Final Re sult Performing Organization Address City/[facility]/ZIP Co de Phone Number [facility] Department [place] [address] * Osmolality, urine (08/19/2024 1:39 AM CDT) Osmo, ur 187 mOsm/kg Urine 08/19/2024 1:39 AM CDT 08/19/2024 2:38 AM CDT Shailesh Wong MD LAB URINE ORDERABLES Final Re sult Performing Organization Address City/[facility]/ZIP Co de Phone Number [facility] [place] [address] * Urinalysis reflex to microscopic and culture Urine (08/18/2024 10:30 PM CDT) Color, ur Straw Yellow Clarity, ur Clear Clear [facility] Specific gravity, ur 1.012 1.003 - 1.030 [facility] pH, urine 6.5 [facility] Comment: Interpretive Data U rine pH is affected by diet, medications, systemic acid-base disturbances, and renal tubular function. pH may affect urinary stone formation. For example, urine pH below 6.0 may help reduce the tendency for calcium phosphate stones and pH greater than 6.0 may reduce the tendency for uric acid stone formation. Source: [facility] Current Interpretive Data was last revised on 2017 Protein, ur ql Negative Negative [facility] Glucose, ur ql Negative Negative [facility] Ketones, ur Negative Negative [facility] Bilirubin, ur Negative Negative [facility] Blood, ur Negative Negative [facility] Urobilinogen, ur <2.0 <2.0 mg/dL [facility] Nitrite, ur Negative Negative [facility] Leukocyte esterase, ur Negative Negative [facility] UA reflex comment Reflex conditions for microscopic UA and culture not met. [facility] Urine 08/18/2024 10:3 0 PM CDT 08/18/2024 11:03 PM CDT Shailesh Wong MD LAB MICROBIOLOGY - GENERAL OR DERABLES Final Result [facility] Department [place] [address] * eGFR (08/18/2024 10:01 PM CDT) eGFR 88 >=60 mL/min/1. 73 m2 Comment: Interpretive Data Reference Interval Normal >/= 90 mL/min/1.73m2 Mildly decreased* 60 - 89 mL/min/1.73m2 Mildly to moderately decreased 45 - 59 mL/min/1.73m2 Moderately to severely decreased 30 - 44 mL/min/1.73m2 Severely decreased 15 - 29 mL/min/1.73m2 Kidney Failure < 15 mL/min/1.73m2 *Relative to young adult level Estimated glomerular filtration rate is determined by the 2020 CKD-EPI equation recommended by the National Kidney Foundation (A Unifying Approach to GFR Estimation: Recommendations of the NKF-ASK Task Force on Reassessing the Inclusion of Race in Diagnosing Kidney Disease, JASN 2020). The CKD-EPI equation should not be used for patients with unstable renal function and has not been validated in children and those over 70. Current interpretive data was last reviewed 2021. Blood 08/18/2024 10:0 1 PM CDT 08/18/2024 10:12 PM CDT us Mark Hernandez MD LAB BLOOD ORDERABLES Keyona casey Result [facility] Department [place] [address] * Critical Result Callback Chemistry (08/18/2024 10:01 PM CDT) Date Notified [id number] Time Notified 5 [facility] TestName eLvy BORGES Called/Read Back Ashlee BORGES Credentials RN [facility] Called By JILL PALUMBO Blood 08/18/2024 10:0 1 PM CDT 08/18/2024 10:12 PM CDT Joby Chaudhry MD LAB BLOOD ORDERABLES Final Result [facility] Department [place] [address] * Respiratory pathogen panel Nasopharyngeal (08/18/2024 10:01 PM CDT) Pathologist [facility] Influenza A RNA Not Detected Not Detected Influenza B RNA Not Detected Not Detected [facility] RSV RNA Not Detected Not Detected [facility] COVID-19 RNA Not Detected Not Detected [facility] Coronavirus 229E RNA Not Detected Not Detected [facility] Coronavirus HKU1 RNA Not Detected Not Detected [facility] Coronavirus NL63 RNA Not Detected Not Detected [facility] Coronavirus OC43 RNA Not Detected Not Detected [facility] Adenovirus DNA Not Detected Not Detected [facility] Metapneumovirus RNA Not Detected Not Detected [facility] Rhinovirus/Enterov irus RNA Not Detected Not Detected [facility] Parainfluenza 1 RNA Not Detected Not Detected [facility] Parainfluenza 2 RNA Not Detected Not Detected [facility] Parainfluenza 3 RNA Not Detected Not Detected [facility] Parainfluenza 4 RNA Not Detected Not Detected [facility] B. pertussis DNA Not Detected Not Detected [facility] B. parapertussis DNA Not Detected Not Detected [facility] C. pneumoniae DNA Not Detected Not Detected [facility] M. pneumoniae DNA Not Detected Not Detected [facility] Nasopharyngeal 08/18/2024 10 :01 PM CDT 08/18/2024 10:19 PM CDT Narrative [facility] - 08/18/2024 11:15 PM CDT Is the Patient experiencing symptoms consistent with COVID?->No Surveillance testing for transplant patient?->No Interpretive Data The [employer] FilmArray Respiratory Panel (RP2.1) assay is a multiplexed real-time PCR based nucleic acid test capable of simultaneous qualitative detection and identification of multiple respiratory viral and bacterial nucleic acids, including SARS Coronavirus 2 (the causative agent of COVID-19). The following bacteria, viruses and virus subtypes can be identified using the [employer] RP2.1 assay: Bordetella pertussis, Bordetella parapertussis, Chlamydia pneumoniae, Mycoplasma pneumoniae, Adenovirus, SARS Coronavirus 2, seasonal coronaviruses (Coronavirus HKU1, Coronavirus NL63, Coronavirus 229E, and Coronavirus OC43), Influenza A, Influenza A subtype H1, Influenza A subtype H3, Influenza A subtype 2009 H1, Influenza B, Metapneumovirus, Parainfluenza 1, Parainfluenza 2, Parainfluenza 3, Parainfluenza 4, RSV, Rhinovirus/Enterovirus. Due to the genetic similarity between human Rhinovirus and Enterovirus, the [employer]Array RP2.1 assay cannot reliably differentiate them. Coronavirus OC43 may cross-react with some isolates of Coronavirus HKU1. A dual positive result may be due to cross-reactivity or may indicate a co- infection. The detection and identification of specific viral and bacterial nucleic acids from individuals exhibiting signs and symptoms of a respiratory infection aids in the diagnosis of respiratory infection if used in conjunction with other clinical and epidemiological information. The results of this test should not be used as the sole basis for diagnosis, treatment, or other management decisions. Negative results in the setting of a respiratory illness may be due to infection with pathogens that are not detected by this test. Positive results do not rule out infection/co-infection with other organisms. The agent(s) detected by the [employer] RP2.1 may not be the definite cause of disease. Additional testing (lab, imaging, etc.) may be necessary when evaluating a patient with possible respiratory tract infection. The [employer]Array RP2.1 assay has FDA clearance for testing of COAL CARRIER swabs. The performance of additional specimen types has been assessed by the performing laboratory. The performance characteristics of this assay have been determined by [facility] Molecular Infectious Disease Laboratory. Current interpretive data was last revised on 22. Shailesh Wong MD LAB MICROBIOLOGY - GENERAL OR DERABLES Final Result [facility] Department [place] [address] * (ABNORMAL) CBC without differential (08/18/2024 10:01 PM CDT) [facility] Signature WBC 9.4 3.8 - 9.9 K/cumm Hgb 10.2(L) 11.9 - 15.5 g/dL [facility] Hct 29.7(L) 35.6 - 45.5 % [facility] Plt 183 150 - 400 K/cumm [facility] MPV 9.1 9.1 - 12.3 fL [facility] RBC 3.17(L) 3.90 - 5.20 M/cumm [facility] MCV 93.7 81.3 - 96.4 fL [facility] MCH 32.2 27.1 - 33.3 pg [facility] MCHC 34.3 32.3 - 35.7 g/dL [facility] RDW CV 14.3 11.1 - 14.9 % [facility] RDW SD 48.8(H) 35.7 - 48.1 fL [facility] NRBC abs 0.00 0.00 - 0.01 K/cumm [facility] Blood 08/18/2024 10:0 1 PM CDT 08/18/2024 10:12 PM CDT us Mark Hernandez MD LAB BLOOD ORDERABLES Keyona l Result Performing Organization Address City/[facility]/ZIP Co de Phone Number [facility] Department [place] [address] * (ABNORMAL) Osmolality, blood (08/18/2024 10:01 PM CDT) Osmo 258(C) 275 - 300 mOsm/kg Blood 08/18/2024 10:0 1 PM CDT 08/18/2024 10:12 PM CDT us Joby Chaudhry MD LAB BLOOD ORDERABLES Final Result [facility] Department [place] [address] * (ABNORMAL) Basic metabolic panel (08/18/2024 10:01 PM CDT) Sodium 127(L) 135 - 145 mmol/L Potassium, pl 3.9 3.3 - 4.9 mmol/L [facility] Chloride 91(L) 97 - 110 mmol/L [facility] CO2 27 22 - 32 mmol/L [facility] Anion gap 9 2 - 15 mmol/L [facility] BUN 10 6 - 25 mg/dL [facility] Creatinine 0.73 0.60 - 1.10 mg/dL [facility] Glucose 99 70 - 199 mg/dL [facility] Comment: Interpretive Data Fasting glucose >/= 126 mg/dl is diagnostic for diabetes. Fasting is defined as no caloric intake for at least 8 hours. Fasting glucose between 100 mg/dl to 125 mg/dl is diagnostic of prediabetes. In a patient with classic symptoms of hyperglycemia or hyperglycemic crisis, a random glucose >/= 200 mg/dl is diagnostic for diabetes. In the absence of unequivocal hyperglycemia, results should be confirmed by repeat testing. The classification and Diagnosis of Diabetes Diabetes Care 202; 46: S19-S40. Current interpretive data was last revised 2022. Calcium 9.1 8.5 - 10.3 mg/dL [facility] Blood 08/18/2024 10:0 1 PM CDT 08/18/2024 10:12 PM CDT us Mark Hernandez MD LAB BLOOD ORDERABLES Keyona casey Result [facility] [place] [address] * XR Foot Right 3 or More Views (08/18/2024 9:23 PM CDT) Anatomical Region Laterality Modality Lower Extremities, Foot Right Computed Radiography 08/19/2024 6:11 AM CDT Impressions 08/19/2024 6:11 AM CDT Severe right great toe metatarsophalangeal osteoarthritis. Electronically signed by: Shawn Mondragon M.D. Narrative 08/19/2024 6:11 AM CDT XR FOOT RIGHT 3 OR MORE VIEWS HISTORY: Right foot pain. FINDINGS: 3 nonweightbearing views of the right foot are obtained and interpreted without comparison. There is no fracture. There is no focal cortical thickening or periosteal reaction to suggest stress injury. There is severe great toe metatarsophalangeal osteoarthritis and mild midfoot osteoarthritis. Small plantar calcaneal spur. Soft tissues are normal. Procedure Note Shawn Mondragon MD - 08/19/2024 XR FOOT RIGHT 3 OR MORE VIEWS HISTORY: Right foot pain. FINDINGS: 3 nonweightbearing views of the right foot are obtained and interpreted without comparison. There is no fracture. There is no focal cortical thickening or periosteal reaction to suggest stress injury. There is severe great toe metatarsophalangeal osteoarthritis and mild midfoot osteoarthritis. Small plantar calcaneal spur. Soft tissues are normal. IMPRESSION: Severe right great toe metatarsophalangeal osteoarthritis. Electronically signed by: Shawn Mondragon M.D. Shailesh Wong MD IMG XR PROCEDURES Final Resul t * X-ray chest 2 views (08/18/2024 9:23 PM CDT) Anatomical Region Laterality Modality Body, Chest N/A Computed Radiogr aphy 08/19/2024 9:59 AM CDT Impressions 08/19/2024 10:25 AM CDT The current study is compared with the prior radiograph dated 02/18/2022 The cardiomediastinal silhouette is normal. The lungs are clear. There is no consolidation, pleural effusion, or pneumothorax. Stable L1 compression deformity is unchanged from CT 02/28/2024. Dictated by: Connor Crews M.D. The radiology attending physician has personally reviewed this study, and had reviewed and/or edited this written report and agrees with it. Electronically signed by: Tyree Patricio M.D. Narrative 08/19/2024 10:25 AM CDT EXAMINATION: 2 view chest radiograph Procedure Note Tyree Patricio MD - 08/19/2024 EXAMINATION: 2 view chest radiograph IMPRESSION: The current study is compared with the prior radiograph dated 02/18/2022 The cardiomediastinal silhouette is normal. The lungs are clear. There is no consolidation, pleural effusion, or pneumothorax. Stable L1 compression deformity is unchanged from CT 02/28/2024. Dictated by: Connor Crews M.D. The radiology attending physician has personally reviewed this study, and had reviewed and/or edited this written report and agrees with it. Electronically signed by: Tyree Patricio M.D. Shailesh Wong MD IMG XR PROCEDURES Final Resul t * Blood culture Blood Arm, left (08/18/2024 3:46 PM CDT) Report Final Report: No growth Blood (Arm, left) 08/18/2024 3:46 PM CDT 08/18/2024 5:07 PM CDT Narrative [facility] - 08/23/2024 7:01 AM CDT Collection->Peripheral 1. Blood cultures are incubated for 4 days on a continuously monitored blood culture system. The first report of a negative culture is issued within 24 hours of receipt of the specimen in the laboratory. 2. Positive culture results are reported as soon as they are detected. 3. The most important factor for detection of microbes in the setting of bloodstream infection is the volume of blood submitted for culture. Failure to collect an optimal blood volume can result in false negative blood cultures. 4. For pediatric patients, the recommended blood volume to collect follows a weight based strategy. See the electronic test catalog for collection instructions. 5. For positive blood cultures, a rapid molecular test may be performed for organism identification using the [place] ePlex blood culture identification panel for gram positive (BCID-GP) and gram negative (BCID-GN) organisms. This nucleic acid amplification test detects microbial DNA in positive blood culture broth. This assay has been cleared by the [place] Food and Drug Administration and its performance characteristics have been verified by the [facility] Microbiology Laboratory. For questions about this culture, contact the Microbiology Laboratory at [phone]. Interpretive data was last revised on 24. Shailesh Wong MD LAB MICROBIOLOGY - GENERAL OR DERABLES Final Result KARMA BORGES [facility] Department [place] [address] * Blood culture Blood Arm, right (08/18/2024 3:46 PM CDT) Report Final Report: No growth Blood (Arm, right) 08/18/2024 3:46 PM CDT 08/18/2024 5:07 PM CDT Narrative KARMA PALUMBO - 08/23/2024 7:01 AM CDT Collection->Peripheral 1. Blood cultures are incubated for 4 days on a continuously monitored blood culture system. The first report of a negative culture is issued within 24 hours of receipt of the specimen in the laboratory. 2. Positive culture results are reported as soon as they are detected. 3. The most important factor for detection of microbes in the setting of bloodstream infection is the volume of blood submitted for culture. Failure to collect an optimal blood volume can result in false negative blood cultures. 4. For pediatric patients, the recommended blood volume to collect follows a weight based strategy. See the electronic test catalog for collection instructions. 5. For positive blood cultures, a rapid molecular test may be performed for organism identification using the [place] ePlex blood culture identification panel for gram positive (BCID-GP) and gram negative (BCID-GN) organisms. This nucleic acid amplification test detects microbial DNA in positive blood culture broth. This assay has been cleared by the [place] Food and Drug Administration and its performance characteristics have been verified by the [facility] Microbiology Laboratory. For questions about this culture, contact the Microbiology Laboratory at [phone]. Interpretive data was last revised on 24. Shailesh Wong MD LAB MICROBIOLOGY - GENERAL OR DERABLES Final Result KARMA BORGES [facility] Department [place] [address] * Flow Leukemia/Lymphoma CSF (08/18/2024 3:24 PM CDT) Mancuso Stain Test Completed Leukemia/Lymp mati Result See separate Surgical Pathology report. KARMA [facility] CSF 08/18/2024 3:24 PM CDT 08/18/2024 4:45 PM CDT us Shailesh Wong MD LAB PATHOLOGY ORDERABLES Keyona casey Result KARMA [facility] Department [place] [address] * Surgical pathology (08/18/2024 3:23 PM CDT) Cerebrospinal Fluid (Cytology) 08/18/2024 3:23 PM CDT 08/18/2024 4:47 PM CDT Narrative 08/19/2024 1:02 PM CDT EPIC results best viewed via link to PDF [facility] Eleni Gardner Laboratory [place] [address] Note to Patients: This report may contain a detailed description of human tissue sent by a health care provider to the laboratory for pathologic evaluation. The content of this report is essential for diagnosis and may provide important critical findings. This information may be unfamiliar to patients to review without a medical professional present. It is advised that the patient review this report in the presence of a health care provider who can answer questions and explain the details. SURGICAL PATHOLOGY REPORT FINAL Patient Name: TOÑA YO Gender: F : 1955 (Age: 69) Address: [address] [place] [id number] Hospital #: [id number] Taken:08/18/2024 Received:08/18/2024 Reported: 08/19/2024 Patient Type: [facility] Inpatient Service: Emergency Medicine Location: [facility] OR POD 3 Physician(s): Shailesh Wong MD Diagnosis: Cerebrospinal fluid for flow cytometry: - No significant B-cell population detected hoxu/08/19/2024 10:52 By this signature, I attest that the above diagnosis is based upon my personal examination of the slides(and/or other material indicated in the diagnosis). Ross Martin M.D. Report Electronically Reviewed and Signed Out By Ross Martin M.D. 08/19/2024 13:02:55 Microscopic Description and Comment: Specimen quality: paucicellular Flow cytometry shows no significant B-cell population. Too few B-cells are present for meaningful clonality analysis. However, a malignant process cannot be excluded solely on the basis of these results. A Mancuso-Giemsa stained cytospin from the flow cytometry specimen was examined for internal quality assurance tech purposes. Flow cytometry was performed using antibodies to the following cellular antigens: CD45, CD34, CD19, CD20, Jennette, Lambda, CD10, CD5, CD200, CD38. Total antigens analyzed: 10 History: The patient is a 69-year-old woman presenting for acute on chronic visual changes, headache, and right foot pain. Specimen(s) Received: A: Cerebrospinal fluid for flow cytometry Gross Description: { Not Entered } Gross Pathologist: No pathologist assigned By this signature, I attest that the above diagnosis is based upon my personal examination of the slides(and/or other material). Addenda/Procedures The performance characteristics of some immunohistochemical stains, fluorescence in-situ hybridization tests and immunophenotyping by flow cytometry cited in this report (if any) were determined by the Surgical Pathology and Flow Cytometry Departments at [facility] as part of an ongoing software quality assurance analyst program and in compliance with federally mandated regulations drawn from the Clinical Laboratory Improvement Act of 1988 (CLIA '88). Some of these tests rely on the use of analyte specific reagents and are subject to specific labeling requirements by the US Food and Drug Administration. Such diagnostic tests may only be performed in a facility that is certified by the Department of Health and Human Services as a high complexity laboratory under CLIA '88. The FDA has determined that such clearance or approval is not necessary. This test is used for clinical purposes. It should not be regarded as investigational or for research. Nevertheless, federal rules concerning the medical use of analyte specific reagents require that the following disclaimer be attached to the report: This test was developed and its performance characteristics determined by the Surgical Pathology and Flow Cytometry Departments of [facility]. It has not been cleared or approved by the U. S. Food and Drug Administration. IMAGES AND SCANNED DOCUMENTS, IF INCLUDED, ONLY VIEWABLE IN PDF VERSION OF REPORT Shailesh Wong MD LAB PATHOLOGY ORDERABLES Keyona l Result * Miscellaneous Test Sendout Chemistry (08/18/2024 3:08 PM CDT) Test name Varicella-Zos ter Virus Antibody, IgG, CSF Result 1 Specimen Type: CSF Result: See scanned result in Medical Record. [facility] CSF 08/18/2024 3:08 PM CDT 08/21/2024 1:27 PM CDT Mark Hernandez MD LAB BLOOD ORDERABLES Keyona l Result Performing Organization Address [facility] Co de Phone Number [facility] Department [place] [address] * Cell count w/reflex diff, CSF (08/18/2024 3:07 PM CDT) Tube Number, CSF Tube 4 Color, CSF Colorless Colorless [facility] Clarity, CSF Clear Clear [facility] Xanthochromia , CSF Absent Absent [facility] Nucleated cells, CSF 0 0 - 5 /cumm [facility] RBC, CSF 0 0 - 0 /cumm [facility] CSF 08/18/2024 3:07 PM CDT 08/18/2024 3:47 PM CDT Shailesh Wong MD LAB BODY FLUIDS AND STOOLS OR DERABLES Final Result Performing Organization Address City/[facility]/ZIP Co de Phone Number [facility] Department [place] [address] * (ABNORMAL) Cell count w/reflex diff, CSF (08/18/2024 3:07 PM CDT) Tube Number, CSF Tube 1 Color, CSF Colorless Colorless [facility] Clarity, CSF Clear Clear [facility] Xanthochromia , CSF Absent Absent [facility] Nucleated cells, CSF 4 0 - 5 /cumm [facility] RBC, CSF 51(H) 0 - 0 /cumm [facility] CSF 08/18/2024 3:07 PM CDT 08/18/2024 3:47 PM CDT Shailesh Wong MD LAB BODY FLUIDS AND STOOLS OR DERABLES Final Result Performing Organization Address City/[facility]/ZIP Co de Phone Number [facility] [place] [address] * Flow Leukemia/Lymphoma CSF (08/18/2024 3:07 PM CDT) [facility] Leukemia/Lymph elly Result See comment Comment:Credited, duplicate test. CSF 08/18/2024 3:07 PM CDT 08/19/2024 4:17 PM CDT Shailesh Wong MD LAB PATHOLOGY ORDERABLES Keyona l Result Performing Organization Address [facility] [place] [address] * Miscellaneous Test Sendout Chemistry (08/18/2024 3:07 PM CDT) [facility] Test name Varicella-Zos ter Virus Antibody, IgM by MARLY, CSF Result 1 Specimen Type: CSF Result: See scanned result in Medical Record. [facility] CSF 08/18/2024 3:07 PM CDT 08/21/2024 1:26 PM CDT Mark Hernandez MD LAB BLOOD ORDERABLES Keyona l Result Performing Organization Address [facility] [place] [address] * Oligoclonal banding (08/18/2024 3:07 PM CDT) [facility] Oligoclonal bands, CSF 1 bands [place] [facility] Oligoclonal bands 1 bands [facility] Oligoclonal bands, interp 0 <2 bands [facility] Comment: The oligoclonal band assay detected no unique IgG bands in the CSF. This is a negative result. Test Performed by: [place] [address] Software Quality Assurance Analyst: Dawit Avendano Ph.D.; CLIA# [id number] Blood/Cerebrospi nal fluid 08/18/2024 3:07 PM CDT 08/18/2024 4:15 PM CDT us Shailesh Wong MD LAB BLOOD ORDERABLES Final Re sult [facility] Department [place] [address] [facility] Lab * (ABNORMAL) IgG index, CSF and blood (08/18/2024 3:07 PM CDT) Immunoglobulin G 1760(H) 767 - 1590 mg/dL [place] [facility] Albumin 3400(L) 3500 - 5000 mg/dL [facility] Comment: Test Performed by: [place] [address] Software Quality Assurance Analyst: Dawit Avendano Ph.D.; CLIA# [id number] Test Performed by: [address] [address] Software Quality Assurance Analyst: Dawit Avendano Ph.D.; CLIA# [id number] IgG, CSF 3.5 <=8.1 mg/dL [facility] Albumin, CSF 14.9 <=27.0 mg/dL [facility] CSF IgG/albumin ratio, CSF 0.23(H) <=0.21 [facility] IgG/Albumin Ratio, Serum 0.52(H) <=0.40 [facility] IgG index, CSF 0.44 <=0.70 [facility] IgG synthesis rate, CSF 0.00 <=12 mg/24H [facility] Albumin quotient, CSF/Serum 4.38 <=14 [facility] Blood/Cerebrospi nal fluid 08/18/2024 3:07 PM CDT 08/18/2024 4:15 PM CDT Shailesh Wong MD LAB BODY FLUIDS AND STOOLS OR DERABLES Final Result Performing Organization Address [facility] de Phone Number [facility] [place] [address] [facility] * Cryptococcal antigen, CSF CSF (08/18/2024 3:07 PM CDT) Cryptococcal Antigen Negative Negative Comment: The cryptococcal antigen test was performed using the EquaMetrics CrAg Lateral Flow Assay. This assay is FDA cleared for serum and CSF specimens and for the detection of Cryptococcus neoformans and Cryptococcus gattii. If the result is positive, the specimen will be titered and reported from less than 1:5 to greater than or equal to 1:2560. This assay does not distinguish between C. neoformans and C. gattii. Testing hemolyzed serum samples may lead to false negatives. Current interpretive data last revised 2018. CSF 08/18/2024 3:07 PM CDT 08/18/2024 4:17 PM CDT Shailesh Wong MD LAB MICROBIOLOGY - GENERAL OR DERABLES Final Result Performing Organization Address [facility] de Phone Number [facility] [place] [address] * Bacterial culture and gram stain, CSF CSF (08/18/2024 3:07 PM CDT) Direct Specimen Exam Stain: Cytospin Gram stain shows: No polymorphonuclear leukocytes seen. No organisms seen. Report Final Report: No growth [facility] CSF 08/18/2024 3:07 PM CDT 08/18/2024 4:16 PM CDT [facility]ative [facility] - 08/23/2024 11:12 AM CDT Testing performed by [facility] Microbiology Laboratory ([phone]). Shailesh Wong MD LAB MICROBIOLOGY - GENERAL OR DERABLES Final Result Performing Organization Address [facility] Co de Phone Number [facility] Department [place] [address] * Protein, total, CSF (08/18/2024 3:07 PM CDT) Protein, CSF 32 5 - 45 mg/dL Comment:Cells present. Resul ts may be falsely elevated. CSF 08/18/2024 3:07 PM CDT 08/18/2024 4:00 PM CDT Shailesh Wong MD LAB BODY FLUIDS AND STOOLS OR DERABLES Final Result Performing Organization Address [facility] de Phone Number [facility] [place] [address] * Glucose, CSF (08/18/2024 3:07 PM CDT) Glucose, CSF 57 mg/dL Comment: Cells present. Results may be falsely elevated. Reference Interval Information: CSF Glucose should be 60-66% of the most current plasma glucose concentration (milligrams/deciliter) CLIN. CHEM. 41/3, 343-360 (1994), Clinical Utility of Biochemical Analysis of Cerebrospinal Fluid, Johnnie Bob and Flavio Fong. Current interpretive data was last revised on 2019. CSF 08/18/2024 3:07 PM CDT 08/18/2024 4:00 PM CDT Shailesh Wong MD LAB BODY FLUIDS AND STOOLS OR DERABLES Final Result Performing Organization Address [facility] Co [place] [address] * Complement, total (08/18/2024 3:07 PM CDT) Complement hemolytic 63 30 - 75 units/mL [facility] Comment: Test Performed by: [place] [address] Software Quality Assurance Analyst: Dawit Avendano Ph.D.; CLIA# [id number] Blood 08/18/2024 3:07 PM CDT 08/18/2024 4:16 PM CDT Shailesh Wong MD LAB BLOOD ORDERABLES Final Re sult Performing Organization Address [facility] Co de Phone Number [facility] [employer] [place] [address] [place] ref [facility] * (ABNORMAL) C2 complement (08/18/2024 3:07 PM CDT) Pathologist [facility] Complement C2, functional 62(H) 25 - 47 units/mL [facility] Comment: ADDITIONAL INFORMATION This test was developed and its performance characteristics determined by [facility] in a manner consistent with CLIA requirements. This test has not been cleared or approved by the U.S. Food and Drug Administration. Complement C2 See Footnote KARMA BORGES Comment: RESULT: Results are not consistent with homozygous deficiency. Test Performed by: [place] [address] Software Quality Assurance Analyst: Dawit Avendano Ph.D.; CLIA# [id number] Blood 08/18/2024 3:07 PM CDT 08/18/2024 4:15 PM CDT Shailesh Wong MD LAB BLOOD ORDERABLES Final Re sult Performing Organization Address [facility] Co de Phone Number KARMA [facility] [employer] [place] [address] [place] ref [facility] * T-SPOT.TB Blood (08/18/2024 12:57 PM CDT) [facility] T-SPOT.TB Negative SeeBelow Comment: Normal Value: Negative A negative test result does not exclude the possibility of exposure to or infection with Mycobacterium tuberculosis (M. tuberculosis). Patients with recent exposure to TB infected individuals exhibiting a negative T-SPOT.TB result should be considered for retesting within 6 weeks or if other relevant clinical symptoms indicate. Results from T-SPOT.TB testing must be used in conjunction with each individual's epidemiological history, current medical status, and results of other diagnostic evaluations. The T-SPOT.TB test is qualitative and results are reported as positive, borderline or negative, given that the test controls perform as expected. In line with the Centers for Disease Control and Prevention's 2010 recommendation to report quantitative measurements alongside the qualitative result, the laboratory provides spot counts for informational purposes only. The T-SPOT.TB test should not be interpreted as a quantitative test. T-SPOT.TB Panel A Spot Count 0 [facility] T-SPOT.TB Panel B Spot Count 0 [facility] T-SPOT.TB Negative Control Passed [facility] T-SPOT.TB Positive Control Passed [facility] Comment: Test Performed at: [facility] [address] [place] [phone] GLORIA WAGONER,PHD Blood 08/18/2024 12:5 7 PM CDT 08/18/2024 1:08 PM CDT us Shailesh Wong MD LAB MICROBIOLOGY - GENERAL OR DERABLES Final Result [facility] Department [place] [address] * (ABNORMAL) Immunoglobulin IgG subclasses (08/18/2024 12:57 PM CDT) [facility] IgG 1721(H) 767 - 1590 mg/dL [place] ref [facility] IgG, fraction 1 987(H) 341 - 894 mg/dL [facility] IgG, fraction 2 457 171 - 632 mg/dL [facility] IgG, fraction 3 103.5 18.4 - 106.0 mg/dL [facility] IgG, fraction 4 84.0 2.4 - 121.0 mg/dL [facility] Comment: Test Performed by: [facility] [address] [place] [address] Software Quality Assurance Analyst: Dawit Avendano Ph.D.; CLIA# [id number] Blood 08/18/2024 12:5 7 PM CDT 08/18/2024 4:15 PM CDT Shailesh Wong MD LAB BLOOD ORDERABLES Final Re sult Performing Organization Address [facility] de Phone Number [facility] [place] [place] [address] [facility] ref [facility] * BRANDT ab eval w/reflex (08/18/2024 12:57 PM CDT) Pathologist [facility] BRANDT ab Negative Negative Comment: Interpretive Data Positive Screens will be reflexed to specific testing for Antibodies against the following antigens: Milady-1 Ab, HEATING SYSTEMS INSTALLER Ab, Scl-70 Ab, Kelley Ab, SS-A/Ro Ab, and SS- B/La Ab. Further testing for dsDNA, Centromere, or Ribosomal P antibodies is suggested in patient with a positive screen and negative specific antibodies. Current interpretive data was last revised on 2022. Blood 08/18/2024 12:5 7 PM CDT 08/18/2024 1:08 PM CDT Shailesh Wong MD LAB BLOOD ORDERABLES Final Re sult Performing Organization Address [facility] Co de Phone Number [facility] [employer] [place] [address] * (ABNORMAL) Immune competence (08/18/2024 12:57 PM CDT) Pathologist [facility] CD3 pct 76 60 - 88 % CD3 Absolute 802 661 - 1,963 cells/mcL [facility] CD4 pct 61 31 - 64 % [facility] CD4 Absolute 627 365 - 1,294 cells/mcL [facility] CD8 pct 16 12 - 40 % [facility] CD8 Absolute 162(L) 187 - 781 cells/mcL [facility] CD19 pct 23 6 - 25 % [facility] CD19 Absolute 245 86 - 488 cells/mcL [facility] [id number] pct 1(L) 5 - 25 % [facility] [id number] Absolute <35(L) 76 - 467 cells/mcL [facility] Comment:Verified CD4/CD8 ratio 3.8 0.9 - 4.4 [facility] Blood 08/18/2024 12:5 7 PM CDT 08/18/2024 1:08 PM CDT Shailesh Wong MD LAB BLOOD ORDERABLES Final Re sult Performing Organization Address [facility] Co de Phone Number [facility] [place] [address] * Angiotensin converting enzyme (08/18/2024 12:57 PM CDT) Pathologist [facility] MONICA 24 10 - 55 Units/L Blood 08/18/2024 12:5 7 PM CDT 08/18/2024 1:08 PM CDT Shailesh Wong MD LAB BLOOD ORDERABLES Final Re sult Performing Organization Address [facility] Co de Phone Number [facility] [place] [address] * (ABNORMAL) IgA (08/18/2024 12:57 PM CDT) Immunoglobulin A 492(H) 70 - 400 mg/dL Blood 08/18/2024 12:5 7 PM CDT 08/18/2024 1:08 PM CDT Shailesh Wong MD LAB BLOOD ORDERABLES Final Re sult Performing Organization Address City/[facility]/ZIP Co de Phone Number [facility] [place] [address] * IgM (08/18/2024 12:57 PM CDT) Immunoglobulin M 41 40 - 230 mg/dL Blood 08/18/2024 12:5 7 PM CDT 08/18/2024 1:08 PM CDT us Shailesh Wong MD LAB BLOOD ORDERABLES Final Re sult KARMA [facility] [place] [address] * Cytology (08/18/2024 12:35 PM CDT) Cerebrospinal Fluid (Cytology) 08/18/2024 12:35 PM CDT 08/18/2024 5:35 PM CDT Narrative 08/19/2024 5:20 PM CDT EPIC results best viewed via link to PDF [facility] Eleni Gardner Laboratory [place] [address] Note to Patients: This report may contain a detailed description of human tissue sent by a health care provider to the laboratory for pathologic evaluation. The content of this report is essential for diagnosis and may provide important critical findings. This information may be unfamiliar to patients to review without a medical professional present. It is advised that the patient review this report in the presence of a health care provider who can answer questions and explain the details. CYTOPATHOLOGY REPORT FINAL Patient Name: TOÑA YO Gender: F : 1955 (Age: 69) Address: [address] [place] [id number] Hospital #: [id number] Taken:08/18/2024 Received:08/18/2024 Reported: 08/19/2024 Patient Type: [facility] Inpatient Service: Neurology Location: [facility] 0113 Physician(s): Gauri Rodriguesa A. White, M.D. Shailesh Wong MD FINAL DIAGNOSIS A. Cerebrospinal fluid: - Negative for malignancy hrk/08/19/2024 17:20 By this signature, I attest that the above diagnosis is based upon my personal examination of the slides(and/or other material indicated in the diagnosis). Abigali Gold M.D. Report Electronically Reviewed and Signed Out By Abigail Gold M.D. 08/19/2024 17:20:44 Vitor HigginsRachel Pike MS, CT(ASCP)PA Gross Description A. Cerebrospinal fluid: 10 ml clear fluid - 2 Diff-Quik stained cytospins. (ep) Clinical Diagnosis and History The patient is a 69 year old woman. There is clinical concern for a neuroinflammatory syndrome. REPORT IMAGES AND SCANNED DOCUMENTS, IF INCLUDED, ONLY VIEWABLE IN PDF VERSION OF REPORT The performance characteristics of some immunohistochemical stains, in-situ hybridization and fluorescence in-situ hybridization tests and immunophenotyping by flow cytometry cited in this report (if any) were determined by the Surgical Pathology and Flow Cytometry Departments at [facility] as part of an ongoing software quality assurance analyst program and in compliance with federally mandated regulations drawn from the Clinical Laboratory Improvement Act of 1988 (CLIA '88). Some of these tests rely on the use of analyte specific reagents and are subject to specific labeling requirements by the US Food and Drug Administration. Such diagnostic tests may only be performed in a facility that is certified by the Department of Health and Human Services as a high complexity laboratory under CLIA '88. The FDA has determined that such clearance or approval is not necessary. This test is used for clinical purposes. It should not be regarded as investigational or for research. Nevertheless, federal rules concerning the medical use of analyte specific reagents require that the following disclaimer be attached to the report: This test was developed and its performance characteristics determined by the Surgical Pathology and Flow Cytometry Departments of [facility]. It has not been cleared or approved by the U. S. Food and Drug Administration. Johnson Rico MD LAB CYTOLOGY ORDERABLES Final Result * C4 complement (08/18/2024 10:33 AM CDT) Complement C4 36.0 10.0 - 40.0 mg/dL Blood 08/18/2024 10:3 3 AM CDT 08/18/2024 10:48 AM CDT Shailesh Wong MD LAB BLOOD ORDERABLES Final Re sult Performing Organization Address [facility] de Phone Number [facility] [place] [address] * Aldolase (08/18/2024 10:33 AM CDT) Aldolase 7.2 0.1 - 8.0 Units/L Blood 08/18/2024 10:3 3 AM CDT 08/18/2024 10:48 AM CDT Shailesh Wong MD LAB BLOOD ORDERABLES Final Re sult Performing Organization Address [facility] de Phone Number [facility] Department [place] [employer] [place] [address] * C3 complement (08/18/2024 10:33 AM CDT) Complement C3 151.0 90.0 - 180.0 mg/dL Blood 08/18/2024 10:3 3 AM CDT 08/18/2024 10:48 AM CDT Shailesh Wong MD LAB BLOOD ORDERABLES Final Re sult Performing Organization Address [facility] de Phone Number [facility] [place] [place] [address] * Creatine kinase (CK), total (08/18/2024 10:33 AM CDT) CK 52 30 - 200 Units/L Blood 08/18/2024 10:3 3 AM CDT 08/18/2024 10:48 AM CDT Shailesh Wong MD LAB BLOOD ORDERABLES Final Re sult Performing Organization Address [facility] Co de Phone Number [facility] [place] [employer] [place] [address] * Beta 2 transferrin, body fluid (08/18/2024 5:25 AM CDT) Beta-2 transferrin, fld Negative Jorge ref Lab Comment: REFERENCE VALUE Negative, no beta-2 transferrin (spinal fluid) detected. ADDITIONAL INFORMATION This test was developed and its performance characteristics determined by [facility] in a manner consistent with CLIA requirements. This test has not been cleared or approved by the U.S. Food and Drug Administration. Test Performed by: [facility] [place] [address] Software Quality Assurance Analyst: Dawit Avendano Ph.D.; CLIA# [id number] Fluid 08/18/2024 5:25 AM CDT 08/18/2024 7:30 AM CDT Shailesh Wong MD LAB BODY FLUIDS AND STOOLS OR DERABLES Final Result Performing Organization Address [facility] Co de Phone Number [facility] [place] [address] Jorge ref Lab * ND CRITICAL CARE ILL/INJURED PATIENT INIT 30-74 MIN (08/17/2024 10:10 PM CDT) Narrative Shailesh Wong MD - 08/17/2024 10:10 PM CDT Shailesh Wong MD 08/17/2024 10:11 PM Critical Care Performed by: Shailesh Wong MD Authorized by: Shailesh Wong MD Critical care provider statement: As reflected in the history, physical exam, orders, notes, and/or MDM, I was personally present while the patient was critically ill and provided critical care services for 35 minutes, excluding time involved in separately billable procedures. Critical care was necessary to treat or prevent imminent or life-threatening deterioration of the following condition(s): severe neurologic condition GCA and vasculitis evaluation severe opthalmological condition Critical care was time spent by me providing the following: continuous telemetry and continuous pulse oximetry frequent neurologic exams and advanced imaging MRI initiation of steroids I ordered and reviewed test results and/or imaging studies. I provided emergent necessary critical care medicine services to this patient. I spent time discussing the management of this critically ill patient with consultants and the medical staff. I spent time discussing the management and therapeutic options for this critically ill patient with the patient themselves or with the appropriate designated surrogate decision-maker. I spent time documenting in the medical record. us Shailesh Wong MD IN CLINIC/BEDSIDE ORDERABLES Final Result * Treponemal IgG/IgM Blood (08/17/2024 8:34 PM CDT) Treponemal IgG/IgM Nonreactive Nonreactive Comment: Interpretive Data: If test is reported as EQUIVOCAL, a new sample should be drawn in two weeks for testing. Current interpretive data was last revised on 2018. Blood 08/17/2024 8:34 PM CDT 08/17/2024 8:55 PM CDT us Malika Mishra MD LAB MICROBIOLOGY - GENERAL O RDERABLES Final Result [facility] [place] [address] * (ABNORMAL) JEAN CLAUDE ab ql w/rflx to JEAN CLAUDE qn (08/17/2024 8:34 PM CDT) JEAN CLAUDE Positive 1:640 Comment: Interpretive Data Normal range for JEAN CLAUDE Qualitative Antibody = Negative. 1. JEAN CLAUDE is performed using indirect immunofluorescence against HEp-2 cells 2. JEAN CLAUDE titers are performed on all positive qualitative results. 3. A significantly positive JEAN CLAUDE result is defined as a positive nuclear fluorescence at a titer of 1:80 or greater. 4. 15% of normal people above age 65 have significantly positive JEAN CLAUDE results. 5% or less of normal people age 65 or under have significantly positive JEAN CLAUDE results. Current interpretive data was last revised on 2020. JEAN CLAUDE, quant 1:640 titer [facility] JEAN CLAUDE, interp Speckled(A) [facility] Blood 08/17/2024 8:34 PM CDT 08/17/2024 8:55 PM CDT us Malika Mishra MD LAB BLOOD ORDERABLES Final R esult [facility] [place] [address] * PR3 - proteinase 3, Ab (08/17/2024 8:34 PM CDT) Proteinase 3 ab <0.2 <=0.9 Ab Index Comment: Interpretive Data Negative: <1 Ab Index Positive: > or = 1 Ab Index Current interpretive data was last revised on 2016. Blood 08/17/2024 8:34 PM CDT 08/17/2024 8:55 PM CDT us Malika Mishra MD LAB BLOOD ORDERABLES Final R esult [facility] [place] [address] * MPO - myeloperoxidase antibody (08/17/2024 8:34 PM CDT) Myeloperoxidase ab <0.2 <=0.9 Ab Index Comment: Interpretive Data Negative: <1 Ab Index Positive: > or = 1 Ab Index Current interpretive data was last revised on 2016. Blood 08/17/2024 8:34 PM CDT 08/17/2024 8:55 PM CDT Malika Mishra MD LAB BLOOD ORDERABLES Final R esult Performing Organization Address City[facility]/ZIP Co de Phone Number [facility] [place] [place] [address] * HIV 1/2 Antibody plus p24 Antigen Blood (08/17/2024 8:34 PM CDT) [facility] HIV 1/2 ab + p24 ag Nonreactive Nonreactive Comment:Nonreactive for HIV- 1 antigen and HIV-1/HIV-2 antibodies. No laboratory evidence of HIV infection. If acute HIV infection is suspected, consider testing for HIV-1 RNA. Current interpretive data was last revised on 22. Blood 08/17/2024 8:34 PM CDT 08/17/2024 9:16 PM CDT us Malika Mishra MD LAB MICROBIOLOGY - GENERAL O RDERABLES Final Result Performing Organization Address [facility] Co de Phone Number [facility] Department [place] [employer] [place] [address] * (ABNORMAL) Anti-Neutrophilic Cytoplasmic Antibody (ANCA) with Reflex to MPO and PR3 Abs (58:34 PM CDT) [facility] ANCA Indetermi debora(A) Negative Comment:Indeterminate for P- ANCA - Results by antigen specific immunoassay (MPO & PR3) to follow. May indicate ulcerative colitis or Crohn's disease. Blood 08/17/2024 8:34 PM CDT 08/17/2024 8:55 PM CDT us Malika Mishra MD LAB BLOOD ORDERABLES Final R esult Performing Organization Address [facility] Co de Phone Number [facility] [employer] [place], [place] [id number] * Methylmalonic acid, serum (08/17/2024 8:34 PM CDT) [facility] MMA 0.11 <=0.40 nmol/mL Jorge ref Lab Comment: ADDITIONAL INFORMATION This test was developed and its performance characteristics determined by [facility] in a manner consistent with CLIA requirements. This test has not been cleared or approved by the U.S. Food and Drug Administration. Test Performed by: [facility] [place] [address] Software Quality Assurance Analyst: Dawit Avendano Ph.D.; CLIA# [id number] Blood 08/17/2024 8:34 PM CDT 08/17/2024 8:46 PM CDT Malika Mishra MD LAB BLOOD ORDERABLES Final R esult Performing Organization Address [facility] Co de Phone Number [facility] [place] [employer] [place] [address] [place] ref Lab * RPR Blood (08/17/2024 8:34 PM CDT) RPR Nonreactive Nonreactive Blood 08/17/2024 8:34 PM CDT 08/17/2024 8:55 PM CDT Malika Mishra MD LAB MICROBIOLOGY - GENERAL O RDERABLES Final Result Performing Organization Address [facility] de Phone Number [facility] [employer] [place] [address] * Vitamin B1 (08/17/2024 8:34 PM CDT) Thiamine (Vit B1) 125 70 - 180 nmol/L Jorge ref Lab Comment: ADDITIONAL INFORMATION This test was developed and its performance characteristics determined by [facility] in a manner consistent with CLIA requirements. This test has not been cleared or approved by the U.S. Food and Drug Administration. Test Performed by: [facility] [address] [place] [address] Software Quality Assurance Analyst: Dawit Avendano Ph.D.; CLIA# [id number] Blood 08/17/2024 8:34 PM CDT 08/17/2024 8:46 PM CDT us Malika Mishra MD LAB BLOOD ORDERABLES Final R esult [facility] [place] [address] Jorge ref Lab * Homocysteine (08/17/2024 8:34 PM CDT) Pathologist [facility] Homocysteine 8.5 0.0 - 15.0 mcmol/L Blood 08/17/2024 8:34 PM CDT 08/17/2024 8:55 PM CDT us Malika Mishra MD LAB BLOOD ORDERABLES Final R esult Performing Organization Address [facility]/ZIP Co de Phone Number [facility] [place] [employer] [place] [address] * Folate (08/17/2024 8:34 PM CDT) Pathologist [facility] Folic acid >20.0 >=5.0 ng/mL Blood 08/17/2024 8:34 PM CDT 08/17/2024 8:55 PM CDT us Malika Mishra MD LAB BLOOD ORDERABLES Final R esult [facility] [employer] [place] [address] * (ABNORMAL) Ferritin (08/17/2024 8:34 PM CDT) Ferritin 310(H) 13 - 150 ng/mL Blood 08/17/2024 8:34 PM CDT 08/17/2024 8:55 PM CDT us Mark Hernandez MD LAB BLOOD ORDERABLES Key[place] l Result Performing Organization Address [facility]/ZIP Co de Phone Number [facility] [place] [employer] [place] [address] * Vitamin B12 (08/17/2024 8:34 PM CDT) Vitamin B12 657 230 - 1,250 pg/mL Blood 08/17/2024 8:34 PM CDT 08/17/2024 8:55 PM CDT us Malika Mishra MD LAB BLOOD ORDERABLES Final R esult Performing Organization Address [facility] Co de Phone Number [facility] Department [place] [address] * MRI Brain MRA Head MRA Neck W WO Contrast (08/17/2024 8:02 PM CDT) Anatomical Region Laterality Modality Head and Neck N/A Magnetic Resonan ce 08/18/2024 9:1 3 AM CDT Impressions 08/18/2024 1:06 PM CDT Examination is degraded by motion artifact. 1. FLAIR hyperintensity of the intraorbital and canalicular segments of the right optic nerve. No definitive asymmetric enhancement, however, multiple postcontrast sequences are degraded due to motion artifact. Findings may represent optic neuritis in the correct clinical context. 2. 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 3. Mild luminal narrowing of the right middle cerebral artery proximal M2 branches which can be seen in the setting of vasculitis. This finding is best appreciated on postcontrast MRA (series 35). Dictated by: César Segura D.O. The radiology attending physician has personally reviewed this study, and had reviewed and/or edited this written report and agrees with it. Electronically signed by: Maureen Arenas M.D. Narrative 08/18/2024 1:06 PM CDT EXAMINATION: 1. Magnetic resonance imaging (MRI) of the brain and brainstem without and with contrast 2. Magnetic resonance imaging (MRI) of the orbits without and with contrast 3. Magnetic resonance angiography (MRA) of the pckxwf-ko-Mhlmxe without and with contrast 4. 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 Concern for optic neuritis. TECHNIQUE: Multiplanar multi-weighted MRI of the brain and brainstem was performed without and with intravenous contrast using the general brain protocol. Multiplanar multi-weighted MRI of the orbits was performed without and with intravenous contrast using the standard protocol. This included multiplanar high resolution imaging of the orbits and optic nerves. Magnetic resonance angiography of the qndhka-fi-Iesurj was performed using a separate data acquisition with a non-contrast fesa-gh-lbuhtq technique and a post-contrast technique to produce axial thin-slice source images. These images were then used to generate maximum intensity projection (MIP) images. Magnetic resonance angiography of the neck was performed using a separate data acquisition with a non-contrast yiti-xt-fsmaqm technique and a post-contrast technique to produce thin-slice source images. These images were then used to generate maximum intensity projection (MIP) images. Contrast information: 14 mL Gadoterate Meglumine IV COMPARISON: MRI vessel imaging 07/08/2024. FINDINGS: ORBITS: Both globes are normal in shape and outline without proptosis. The extraocular muscles are normal in size. No intra- or extraconal masses are present. The intraconal fat is normal. The orbital aviles are intact. The lacrimal glands are normal in appearance. Meckel's cave appears normal on each side. The carotid artery flow voids are normal. FLAIR hyperintensity of the intraorbital and canalicular segments of the right optic nerve. The left optic nerve appears normal. No definitive asymmetric enhancement, however, the evaluation is degraded by motion artifact. The suprasellar cistern is normal. Right lens replacement. 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 Associated susceptibility artifact and diffusion restriction is unchanged compared to 07/08/2024 and likely represents prior hemorrhage. Additional susceptibility artifact is present in the left hippocampus. The scalp and calvarium are normal. The superior sagittal sinus demonstrates normal venous flow. The corpus callosum is normal in shape and signal intensity. The posterior fossa is unremarkable. The pituitary and sella are normal. The brainstem and craniocervical junction are unremarkable. Scattered white matter FLAIR hyperintensities are non specific. Mild parenchymal volume loss. Bilateral hippocampal volume loss with ex vacuo dilatation of the temporal horns. Diffusion weighted images reveal no hyperintensities to suggest acute cerebral infarction. Ex vacuo dilatation of the ventricular system in keeping with parenchymal volume loss. Diffuse paranasal sinus mucosal thickening. Partial bilateral mastoid effusions. Right lens replacement. Normal flow voids are demonstrated in the carotid arteries and basilar artery. There is no abnormal contrast enhancement. Degenerative changes of the atlantoaxial articulation with retro-odontoid pannus formation. MRA: NECK: The aortic arch and origins of the great vessels are normal. A typical three-vessel arch is present. The common carotid and cervical internal carotid arteries of the neck are of normal caliber. The carotid bifurcations are of normal caliber without vascular narrowing. Cervical vertebral arteries are of normal caliber. The vertebral arteries are codominant. Although MRA is a screening examination, catheter angiography remains the definitive study for small aneurysms, vasculitis, and other vascular abnormalities. There is no soft tissue abnormality in the neck on limited imaging of the neck included in this MR angiogram. HEAD: The internal carotid arteries in the head are of normal caliber. Mild luminal narrowing of the right M2 proximal branches. The left middle cerebral arteries are normal. origins of the bilateral posterior cerebral arteries. The anterior and middle cerebral arteries are normal. The vertebral arteries are codominant. The basilar artery is normal. The posterior cerebral arteries are normal. There is no aneurysm or vascular malformation identified. Although MRA is a screening examination, catheter angiography remains the definitive study for small aneurysms, vasculitis, and other vascular abnormalities. Procedure Note Maureen Arenas MD - 08/18/2024 EXAMINATION: 1. Magnetic resonance imaging (MRI) of the brain and brainstem without and with contrast 2. Magnetic resonance imaging (MRI) of the orbits without and with contrast 3. Magnetic resonance angiography (MRA) of the mvpgzj-ek-Zakwci without and with contrast 4. 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 Concern for optic neuritis. TECHNIQUE: Multiplanar multi-weighted MRI of the brain and brainstem was performed without and with intravenous contrast using the general brain protocol. Multiplanar multi-weighted MRI of the orbits was performed without and with intravenous contrast using the standard protocol. This included multiplanar high resolution imaging of the orbits and optic nerves. Magnetic resonance angiography of the eltpwt-fs-Wzjxfk was performed using a separate data acquisition with a non-contrast xvrq-lj-lhlysw technique and a post-contrast technique to produce axial thin-slice source images. These images were then used to generate maximum intensity projection (MIP) images. Magnetic resonance angiography of the neck was performed using a separate data acquisition with a non-contrast exrh-ct-sojxil technique and a post-contrast technique to produce thin-slice source images. These images were then used to generate maximum intensity projection (MIP) images. Contrast information: 14 mL Gadoterate Meglumine IV COMPARISON: MRI vessel imaging 07/08/2024. FINDINGS: ORBITS: Both globes are normal in shape and outline without proptosis. The extraocular muscles are normal in size. No intra- or extraconal masses are present. The intraconal fat is normal. The orbital aviles are intact. The lacrimal glands are normal in appearance. Meckel's cave appears normal on each side. The carotid artery flow voids are normal. FLAIR hyperintensity of the intraorbital and canalicular segments of the right optic nerve. The left optic nerve appears normal. No definitive asymmetric enhancement, however, the evaluation is degraded by motion artifact. The suprasellar cistern is normal. Right lens replacement. 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 Associated susceptibility artifact and diffusion restriction is unchanged compared to 07/08/2024 and likely represents prior hemorrhage. Additional susceptibility artifact is present in the left hippocampus. The scalp and calvarium are normal. The superior sagittal sinus demonstrates normal venous flow. The corpus callosum is normal in shape and signal intensity. The posterior fossa is unremarkable. The pituitary and sella are normal. The brainstem and craniocervical junction are unremarkable. Scattered white matter FLAIR hyperintensities are non specific. Mild parenchymal volume loss. Bilateral hippocampal volume loss with ex vacuo dilatation of the temporal horns. Diffusion weighted images reveal no hyperintensities to suggest acute cerebral infarction. Ex vacuo dilatation of the ventricular system in keeping with parenchymal volume loss. Diffuse paranasal sinus mucosal thickening. Partial bilateral mastoid effusions. Right lens replacement. Normal flow voids are demonstrated in the carotid arteries and basilar artery. There is no abnormal contrast enhancement. Degenerative changes of the atlantoaxial articulation with retro-odontoid pannus formation. MRA: NECK: The aortic arch and origins of the great vessels are normal. A typical three-vessel arch is present. The common carotid and cervical internal carotid arteries of the neck are of normal caliber. The carotid bifurcations are of normal caliber without vascular narrowing. Cervical vertebral arteries are of normal caliber. The vertebral arteries are codominant. Although MRA is a screening examination, catheter angiography remains the definitive study for small aneurysms, vasculitis, and other vascular abnormalities. There is no soft tissue abnormality in the neck on limited imaging of the neck included in this MR angiogram. HEAD: The internal carotid arteries in the head are of normal caliber. Mild luminal narrowing of the right M2 proximal branches. The left middle cerebral arteries are normal. origins of the bilateral posterior cerebral arteries. The anterior and middle cerebral arteries are normal. The vertebral arteries are codominant. The basilar artery is normal. The posterior cerebral arteries are normal. There is no aneurysm or vascular malformation identified. Although MRA is a screening examination, catheter angiography remains the definitive study for small aneurysms, vasculitis, and other vascular abnormalities. IMPRESSION: Examination is degraded by motion artifact. 1. FLAIR hyperintensity of the intraorbital and canalicular segments of the right optic nerve. No definitive asymmetric enhancement, however, multiple postcontrast sequences are degraded due to motion artifact. Findings may represent optic neuritis in the correct clinical context. 2. 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 3. Mild luminal narrowing of the right middle cerebral artery proximal M2 branches which can be seen in the setting of vasculitis. This finding is best appreciated on postcontrast MRA (series 35). Dictated by: César Segura D.O. The radiology attending physician has personally reviewed this study, and had reviewed and/or edited this written report and agrees with it. Electronically signed by: Maureen Arenas M.D. us Malika Mishra MD IMG MRI PROCEDURES Final Res ult * MRI Brain Incl Orbits W WO Contrast (08/17/2024 8:02 PM CDT) Anatomical Region Laterality Modality Head and Neck N/A Magnetic Resonan ce 08/18/2024 9:13 AM CDT Impressions 08/18/2024 1:06 PM CDT Examination is degraded by motion artifact. 1. FLAIR hyperintensity of the intraorbital and canalicular segments of the right optic nerve. No definitive asymmetric enhancement, however, multiple postcontrast sequences are degraded due to motion artifact. Findings may represent optic neuritis in the correct clinical context. 2. 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 3. Mild luminal narrowing of the right middle cerebral artery proximal M2 branches which can be seen in the setting of vasculitis. This finding is best appreciated on postcontrast MRA (series 35). Dictated by: César Segura D.O. The radiology attending physician has personally reviewed this study, and had reviewed and/or edited this written report and agrees with it. Electronically signed by: Maureen Arenas M.D. Narrative 08/18/2024 1:06 PM CDT EXAMINATION: 1. Magnetic resonance imaging (MRI) of the brain and brainstem without and with contrast 2. Magnetic resonance imaging (MRI) of the orbits without and with contrast 3. Magnetic resonance angiography (MRA) of the sibbwr-sf-Ldpugj without and with contrast 4. 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 Concern for optic neuritis. TECHNIQUE: Multiplanar multi-weighted MRI of the brain and brainstem was performed without and with intravenous contrast using the general brain protocol. Multiplanar multi-weighted MRI of the orbits was performed without and with intravenous contrast using the standard protocol. This included multiplanar high resolution imaging of the orbits and optic nerves. Magnetic resonance angiography of the ovkdec-li-Ezjhat was performed using a separate data acquisition with a non-contrast pbnj-zu-onmfwp technique and a post-contrast technique to produce axial thin-slice source images. These images were then used to generate maximum intensity projection (MIP) images. Magnetic resonance angiography of the neck was performed using a separate data acquisition with a non-contrast mwyh-mu-tbwozn technique and a post-contrast technique to produce thin-slice source images. These images were then used to generate maximum intensity projection (MIP) images. Contrast information: 14 mL Gadoterate Meglumine IV COMPARISON: MRI vessel imaging 07/08/2024. FINDINGS: ORBITS: Both globes are normal in shape and outline without proptosis. The extraocular muscles are normal in size. No intra- or extraconal masses are present. The intraconal fat is normal. The orbital aviles are intact. The lacrimal glands are normal in appearance. Meckel's cave appears normal on each side. The carotid artery flow voids are normal. FLAIR hyperintensity of the intraorbital and canalicular segments of the right optic nerve. The left optic nerve appears normal. No definitive asymmetric enhancement, however, the evaluation is degraded by motion artifact. The suprasellar cistern is normal. Right lens replacement. 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 Associated susceptibility artifact and diffusion restriction is unchanged compared to 07/08/2024 and likely represents prior hemorrhage. Additional susceptibility artifact is present in the left hippocampus. The scalp and calvarium are normal. The superior sagittal sinus demonstrates normal venous flow. The corpus callosum is normal in shape and signal intensity. The posterior fossa is unremarkable. The pituitary and sella are normal. The brainstem and craniocervical junction are unremarkable. Scattered white matter FLAIR hyperintensities are non specific. Mild parenchymal volume loss. Bilateral hippocampal volume loss with ex vacuo dilatation of the temporal horns. Diffusion weighted images reveal no hyperintensities to suggest acute cerebral infarction. Ex vacuo dilatation of the ventricular system in keeping with parenchymal volume loss. Diffuse paranasal sinus mucosal thickening. Partial bilateral mastoid effusions. Right lens replacement. Normal flow voids are demonstrated in the carotid arteries and basilar artery. There is no abnormal contrast enhancement. Degenerative changes of the atlantoaxial articulation with retro-odontoid pannus formation. MRA: NECK: The aortic arch and origins of the great vessels are normal. A typical three-vessel arch is present. The common carotid and cervical internal carotid arteries of the neck are of normal caliber. The carotid bifurcations are of normal caliber without vascular narrowing. Cervical vertebral arteries are of normal caliber. The vertebral arteries are codominant. Although MRA is a screening examination, catheter angiography remains the definitive study for small aneurysms, vasculitis, and other vascular abnormalities. There is no soft tissue abnormality in the neck on limited imaging of the neck included in this MR angiogram. HEAD: The internal carotid arteries in the head are of normal caliber. Mild luminal narrowing of the right M2 proximal branches. The left middle cerebral arteries are normal. origins of the bilateral posterior cerebral arteries. The anterior and middle cerebral arteries are normal. The vertebral arteries are codominant. The basilar artery is normal. The posterior cerebral arteries are normal. There is no aneurysm or vascular malformation identified. Although MRA is a screening examination, catheter angiography remains the definitive study for small aneurysms, vasculitis, and other vascular abnormalities. Procedure Note VoMaureen MD - 08/18/2024 EXAMINATION: 1. Magnetic resonance imaging (MRI) of the brain and brainstem without and with contrast 2. Magnetic resonance imaging (MRI) of the orbits without and with contrast 3. Magnetic resonance angiography (MRA) of the dqnuvf-cs-Hbkzij without and with contrast 4. 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 Concern for optic neuritis. TECHNIQUE: Multiplanar multi-weighted MRI of the brain and brainstem was performed without and with intravenous contrast using the general brain protocol. Multiplanar multi-weighted MRI of the orbits was performed without and with intravenous contrast using the standard protocol. This included multiplanar high resolution imaging of the orbits and optic nerves. Magnetic resonance angiography of the xlcrgi-eg-Jqsagc was performed using a separate data acquisition with a non-contrast jzzn-rj-wepoen technique and a post-contrast technique to produce axial thin-slice source images. These images were then used to generate maximum intensity projection (MIP) images. Magnetic resonance angiography of the neck was performed using a separate data acquisition with a non-contrast elgm-ky-vuhniz technique and a post-contrast technique to produce thin-slice source images. These images were then used to generate maximum intensity projection (MIP) images. Contrast information: 14 mL Gadoterate Meglumine IV COMPARISON: MRI vessel imaging 07/08/2024. FINDINGS: ORBITS: Both globes are normal in shape and outline without proptosis. The extraocular muscles are normal in size. No intra- or extraconal masses are present. The intraconal fat is normal. The orbital aviles are intact. The lacrimal glands are normal in appearance. Meckel's cave appears normal on each side. The carotid artery flow voids are normal. FLAIR hyperintensity of the intraorbital and canalicular segments of the right optic nerve. The left optic nerve appears normal. No definitive asymmetric enhancement, however, the evaluation is degraded by motion artifact. The suprasellar cistern is normal. Right lens replacement. 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 Associated susceptibility artifact and diffusion restriction is unchanged compared to 07/08/2024 and likely represents prior hemorrhage. Additional susceptibility artifact is present in the left hippocampus. The scalp and calvarium are normal. The superior sagittal sinus demonstrates normal venous flow. The corpus callosum is normal in shape and signal intensity. The posterior fossa is unremarkable. The pituitary and sella are normal. The brainstem and craniocervical junction are unremarkable. Scattered white matter FLAIR hyperintensities are non specific. Mild parenchymal volume loss. Bilateral hippocampal volume loss with ex vacuo dilatation of the temporal horns. Diffusion weighted images reveal no hyperintensities to suggest acute cerebral infarction. Ex vacuo dilatation of the ventricular system in keeping with parenchymal volume loss. Diffuse paranasal sinus mucosal thickening. Partial bilateral mastoid effusions. Right lens replacement. Normal flow voids are demonstrated in the carotid arteries and basilar artery. There is no abnormal contrast enhancement. Degenerative changes of the atlantoaxial articulation with retro-odontoid pannus formation. MRA: NECK: The aortic arch and origins of the great vessels are normal. A typical three-vessel arch is present. The common carotid and cervical internal carotid arteries of the neck are of normal caliber. The carotid bifurcations are of normal caliber without vascular narrowing. Cervical vertebral arteries are of normal caliber. The vertebral arteries are codominant. Although MRA is a screening examination, catheter angiography remains the definitive study for small aneurysms, vasculitis, and other vascular abnormalities. There is no soft tissue abnormality in the neck on limited imaging of the neck included in this MR angiogram. HEAD: The internal carotid arteries in the head are of normal caliber. Mild luminal narrowing of the right M2 proximal branches. The left middle cerebral arteries are normal. origins of the bilateral posterior cerebral arteries. The anterior and middle cerebral arteries are normal. The vertebral arteries are codominant. The basilar artery is normal. The posterior cerebral arteries are normal. There is no aneurysm or vascular malformation identified. Although MRA is a screening examination, catheter angiography remains the definitive study for small aneurysms, vasculitis, and other vascular abnormalities.
--- OUTSIDE RECORDS SUMMARY | 2024-08-29 15:33 | XMS_ITS | Patient Health Record ---
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 Problem Eruption of skin (277965818) Rash and other nonspecific skin eruption (R21) Active confirmed Problem Essential hypertension (85808308) Essential (primary) hypertension (I10) Active confirmed Problem Allergy to penicillin (68957204) Allergy status to penicillin (Z88.0) Active confirmed Problem Adverse effect o f sulfonamides, subsequent encounter (T37.0X5D) Active confirmed Encounters Encounter Location Date Provider Diagnosis [facility] - [address] [address] 11/17/2023 Provider ZZ-Migration Rash and other nonspecific [...] Coverage End Date [employer] [address] [place] [phone] [id number] Toña Yo Self - patient is the [...]
--- OUTSIDE RECORDS SUMMARY | 2024-08-29 15:33 | XMS_ITS | Encounter Summary ---
Author Organization [facility] Address [address] [place] [address] Phone Care Team Providers Care Tower Helper Name Role Phone Alison Perez MD Primary Care Provider [phone] Zenon Alexander MD PhD Unavailable [phone] Terrence Avalos MD Unavailable [phone] HowellAurora [facility] Unavailable Encounter Details Date Type Department Care [...] week 08/31/2022 How often do you attend [facility] or zoroastrianism services? 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 Gender Identity Female 02/08/2019 7:49 PM CDT [...] Suspected 02/06/2023 02/06/2023 02/06/2023 3:38 PM CDT COVID: Suspected 08/17/2024 08/17/2024 08/17/2024 3:29 PM CDT documented as of this encounter Care Teams Tower Helper Relationship Specialty Start Date End Date Alison Perez MD [employer] [place] [id number] PCP - General Internal Medicine 08/31/22 Zenon Alexander MD PhD [address] [place] [address] Consulting Physician Neurology 09/18/22 Terrence Avalos MD [address] [place] [address] Consulting Physician Infectious Diseases 09/18/22 Aurora Howell SLP [address] [place] [address] Speech Language Pathologist Speech Therapy 08/01/24 documented as of this encounter
--- OUTSIDE RECORDS SUMMARY | 2024-08-29 15:33 | XMS_ITS | Encounter Summary ---
Author Organization [facility] Address [address] [facility] [address] [place] [address] Phone Care Team Providers Care Mill House Supervisor Name Role Phone Alison Perez MD Primary Care Provider [phone] Zenon Alexander MD PhD Unavailable [phone] Terrence Avalos MD Unavailable HowellAurora moreno OPTOMETRIC TECHNICIAN Unavailable Encounter Details Date Type Department Care Team (Late st Contact Info) Description 07/29/2024 Telephone [facility] Neurology [address] [place] [address] [address] [place] [address] Sanya Farmer MD [address] [place] [address] Social History Tobacco Use Types [...] How often do you attend chur or latter-day services? 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 Gender Identity Female 02/08/2019 7:49 PM CDT [...] documented as of this encounter Care Teams Mill House Supervisor Relationship Specialty Start Date End Date Alison Perez MD [address] [place] [address] PCP - General Internal Medicine 08/31/22 Zenon Aelxander MD PhD [address] [place] [address] Consulting Physician Neurology 09/18/22 Terrence Avalos MD [address] [place] [address] Consulting Physician Infectious Diseases 09/18/22 Aurora Howell SLP [address] [place] [address] Speech Language Pathologist Speech Therapy 08/01/24 documented as of this encounter
--- OUTSIDE RECORDS SUMMARY | 2024-08-29 15:33 | XMS_ITS ---
Author Organization [facility] Address [address] [place] [address] Care Team Providers Care Analyst Market Intelligence Name Role Phone Chris Alison Primary Care Provider UnavailTommie Quezada Unavailable [phone] ZZ-Migration, Provider Unavailable Unavailab le Allergies Allergen (clinical drug ingredient) Drug/Non Drug Allergy documented on EMR Reaction Allergy Type Onset Date Status Medicinal quinolone and acting as antibacterial agent (FN) FLUOROQUINOLONE (uncoded) hives Allergy Active SULFA (BACTRIM) (uncoded) hives Allergy Active Medicinal cephalosporin and acting as antibacterial agent (FN) Cephalosporins hives Drug Allergy Active Penicillin hives Drug Allergy Active REASON FOR VISIT [facility] To [facility] Conversion Encounter Medications Medication SIG [...] Active Encounters Encounter Location Date Provider Diagnosis [facility] - [address] [address] 11/17/2023 Provider CHRISTIAN-Migration Rash and other nonspecific [...] * Jared LEWISOB:[birth year] (69 yo F)Acc No.[id number]:11/17/2023 Patient: Ely QUIÑONEZne Provider: Percy Urrutia :1955 A ge:68 Y S ex:Female Date:11/17/2023 Address:[address] [place], [place] [id number] Pcp:Alison Perez Subjective: * Chief Complaints: * [...] * Electronic signature of Shruthi MendozaZ-Migration on 08/29/2024 at 03:32 PM CDT Sign off status: Pending * Provider: Percy augustin Migration Date: 0 11/17/2023 Generated for Lindsey montes/Aaliyah/Mychal on: 0 08/29/2024 03:32 PM CDT
--- OUTSIDE RECORDS SUMMARY | 2024-08-29 15:33 | XMS_ITS | Clinical Summary ---
Author Organization [facility] Address [address] [place] [address] Care Team Providers Care Information Systems Professor Name Role Phone Alison Perez MD Primary Care Provider [phone] Allergies Active Allergy Reactions Criticality Noted Date [...] Comments Blood Pressure 137/89 05/16/2023 8:34 AM FACILITY MANAGER HISTOLOGY Pulse 90 05/16/2023 8:34 AM FACILITY MANAGER HISTOLOGY Temperature 36.9 C (98.4 F) 05/16/2023 8:34 AM FACILITY MANAGER HISTOLOGY Respiratory Rate 19 05/16/2023 8:34 AM FACILITY MANAGER HISTOLOGY Oxygen Saturation 100% 05/16/2023 8:34 AM FACILITY MANAGER HISTOLOGY Inhaled Oxygen Concentration - - Weight 80.3 kg (177 lb) 05/12/2023 7:32 PM FACILITY MANAGER HISTOLOGY Height 177.8 cm (5' 10 ) 05/12/2023 7:32 PM FACILITY MANAGER HISTOLOGY Body Mass Index 25.4 05/12/2023 7:32 PM FACILITY MANAGER HISTOLOGY Plan of Treatment Health Maintenance Due Date [...] have received informed consent. Yes Care Teams Information Systems Professor Relationship Specialty Start Date End Date Alison Perez MD [address] [facility] [place] [address] PCP - General 05/08/23
--- OUTSIDE RECORDS SUMMARY | 2024-08-29 15:33 | XMS_ITS | Referral Summary ---
Author Organization [facility] Address [address] [place] [address] Care Team Providers Care Lean Facilitator Name Role Phone Alison Perez MD Primary Care Provider [phone] Zenon Alexander MD PhD Unavailable [phone] Terrence Avalos MD Unavailable [phone] Aurora Howell FIELD SCOUT Unavailable Encounters Date Type Department Care Team Description 08/26/2024 Telephone [facility] Rheumatology [address] [place] [address] 5th [place] [address] [place] [address] Gavi Hernández CMA PHV pt follow up 08/17/2024 10:49 AM CDT - 08/23/2024 5:30 PM CDT Hospital Encounter [facility] [address] [place] [phone] Tommie Mccann MD Lacy, Aaron John, MD Newman, Mark Segundo MD Vasculitis (Primary Dx); Vasculitis, PROFESSOR OF RELIGION Discharge Disposition: Discharge to home or self care 08/22/2024 Ophth Exam [facility] Ophthalmology [address] [phone] Mireille Pineda MD 08/21/2024 Ophth Exam [facility] Ophthalmology [address] [phone] Mireille Pineda MD 08/20/2024 Ophth Exam [facility] Ophthalmology [address] [place] [phone] Mireille Pineda MD 08/19/2024 Ophth Exam [facility] Ophthalmology [address] [place] [phone] Mireille Pineda MD 08/19/2024 9:40 AM CDT Ancillary Procedure [facility] Vascular Lab IP [address] [facility] [address] [place] [address] 08/19/2024 1:10 PM CDT - 08/19/2024 2:[address] [facility] Operating Room [address] [place] [address] Ramesh Graham MD BIOPSY - TEMPORAL ARTERY 08/19/2024 12:31 [address] CD[address] An[address] Event [facility] Operating Room [address] [place] [address] Neema Cruz MD PhD Karson Presley, CELIA 08/18/2024 Orders Only [address] [phone] Shailesh Wong MD 08/18/2024 Ophth Exam [facility] Ophthalmology [address] [place] [phone] Mireille Pineda MD 08/17/2024 Ophth Exam [facility] Ophthalmology [address] [place] [phone] Kori Woodward MD 08/16/2024 4:15 PM CDT Office Visit [facility] at [address] [phone] Amy Escamilla NP Vision changes (Primary Dx); Acute intractable headache, unspecified headache type 08/09/2024 Telephone [facility] Neurology [address] [place] [phone] Sanya Farmer MD 08/01/2024 Plan of Care Documentation [facility] Physical Therapy [address] [place] [phone] 07/30/2024 10:00 AM FLOW FLOOR ATTENDANT Therapy [facility] Physical Therapy [address] [place] [phone] Aurora Howell SLP Vasculitis, PROFESSOR OF RELIGION (Primary Dx); Mild cognitive impairment 07/29/2024 Telephone [facility] Neurology [address] [place] [phone] Sanya Farmer MD 07/18/2024 Telephone [facility] Neurology [address] [place] [phone] Samantha Morris 07/15/2024 Telephone [facility] Neurology [address] [place] [phone] Sanya Farmer MD 07/14/2024 Telephone [facility] Neurology [address] [place] [phone] Sanya Farmer MD 07/10/2024 9:42 AM FLOW FLOOR ATTENDANT - 07/10/2024 11:59 PM FLOW FLOOR ATTENDANT Hospital Encounter [facility] [address] [place] [address] 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; Urticarial vasculitis Discharge Disposition: Discharge to home or self care 07/10/2024 9:30 AM FLOW FLOOR ATTENDANT Lab [facility] Endocrinology Metabolism and Lipid [address] [facility] 5th [place] [address] [place] [address] 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 8:30 AM FLOW FLOOR ATTENDANT Office Visit [facility] Rheumatology [address] [facility] 5th [place] [address] [place] [address] Hardy De Santiago MD Urticarial vasculitis (Primary Dx); 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; PROFESSOR OF RELIGION vasculitis; Abnormal brain scan 07/08/2024 Orders Only [facility] Neurology [address] [facility] 6th [place] [address] [place] [address] Sanya Farmer MD Vasculitis, PROFESSOR OF RELIGION (Primary Dx); Mild cognitive impairment 07/08/2024 10:26 AM FLOW FLOOR ATTENDANT - 07/08/2024 11:59 PM FLOW FLOOR ATTENDANT Hospital Encounter [facility] Radiology [address] [place] [address] Vasculitis, PROFESSOR OF RELIGION; Meningoencephaliti s Discharge Disposition: Discharge to home or self care 07/07/2024 10:40 AM FLOW FLOOR ATTENDANT Office Visit [facility] Allergy and Immunology [address] [facility] [address] [place] [phone] Shailesh Rivers MD PhD Urticarial vasculitis (Primary Dx); Chronic idiopathic urticaria 06/30/2024 Orders Only [facility] Neurology [address] [facility] [address] [place] [address] Sanya Farmer MD Anxiety disorder, unspecified type 06/17/2024 Orders Only [facility] Neurology [address] [facility] 6th [place] [address] [place] [address] Sanya Farmer MD Vasculitis, PROFESSOR OF RELIGION (Primary Dx); Meningoencephaliti s 06/17/2024 8:00 AM FLOW FLOOR ATTENDANT Clinical Support [facility] Neuro Psychology [address] [facility] [address] [place] [phone] Winston Yousif, PhD Cognitive changes from Last 3 Months Allergies Active Allergy [...] IN BOTH EYE TWICE A DAY 06/07/19 Active predniSONE (DELTASONE) 10 mg tablet Take [...] total) by mouth daily 60 tablet 08/24/19 25 025 Active acetaminophen (TYLENOL) 325 mg tablet Take 2 tablets (650 mg total) by mouth every 4 (four) hours as needed 05/07/20 025 Discontinu ed(Stop Taking at Discharge) levETIRAcetam (KEPPRA) 1,000 mg tablet 1 tablet (1,000 mg total) 025 Discontinu ed(Stop Taking at Discharge) EPINEPHrine 0.3 mg/0.3 mL auto-injection syringe INJECT 0.3ML INTRAMUSCULARLY ONCE FOR ANAPHYLAXIS AND REPEAT IN 5 MINUTES IF NECESSARY 01/30/20 025 Discontinu ed(Stop Taking at Discharge) diazePAM (VALIUM) 5 mg tabletIndicati ons:anxiety Take one tab 30 minutes prior to procedure. Repeat thirty minutes later if necessary. 2 tablet 06/30/19 025 Discontinu ed(Therapy completed) spironolactone (ALDACTONE) 25 mg tablet Take 1 tablet (25 mg total) by mouth daily 025 Discontinu ed(Stop Taking at Discharge) famotidine (PEPCID) 20 mg tablet Take 1 tablet (20 mg total) by mouth 2 (two) times a day 180 tablet 3 07/07/19 25 025 Discontinu ed(Stop Taking at Discharge) azaTHIOprine (IMURAN) 50 mg tabletIndicati ons:Urticarial vasculitis TAKE 1 AND 1/2 TABLETS BY MOUTH DAILY 135 tablet 07/21/19 25 025 Discontinu ed(Stop Taking at Discharge) predniSONE (DELTASONE) 50 mg tablet Take 12.5 tablets (625 mg) by mouth once for 1 dose 13 tablet 08/25/19 25 025 atovaquone (MEPRON) suspension 750 mg/5 mL Take 10 mL (1,500 mg total) by mouth daily 600 mL 08/24/19 25 025 Discontinu ed(Stop Taking at Discharge) Active Problems Problem Noted Date Diagnosed Date Vasculitis 08/17/2024 Vasculitis, PROFESSOR OF RELIGION 05/22/2024 Unspecified contact dermatitis due to other agen ts 04/23/2023 Acute respiratory failure 04/09/2023 Brain herniation 04/09/2023 Cerebrovascular accident (CVA) 04/09/2023 Endotracheally intubated 04/09/2023 Hyponatremia 04/09/2023 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 More than 4 times per year 08/31/2022 Do you belong to any clubs o r organizations such as roman catholic groups, unions, fraternal or athletic groups, or [...] on file Legal Sex Female 11:45 AM FLOW FLOOR ATTENDANT Gender Identity Female 02/08/2019 7:49 PM CDT [...] 08/18/2024 11:41 AM CDT Plan of Treatment Not on file Procedures [...] DEVICE Routine 08/21/2024 5 :48 PM CDT UT DIAGNOSTIC LUMBAR SPINAL PUNCTURE Routine 08/21/2024 3:17 PM CDT Vasculitis, PROFESSOR OF RELIGION MYELIN OLIGODENDROCYTE GLYCOPROTEIN (MOG-IGG1) FLUORESCENCE-ACTIVATED CELL SORTING [...] 08/18/2024 3:46 PM CDT FLOW LEUKEMIA/LYMPHOMA Timed 5 3:24 PM CDT SURGICAL PATHOLOGY Routine 08/18/2024 3: 23 PM CDT MISCELLANEOUS TEST SENDOUT CHEMISTRY Routine 08/18/2024 3:08 PM CDT FLOW LEUKEMIA/LYMPHOMA Timed 5 3:07 PM CDT MISCELLANEOUS TEST SENDOUT CHEMISTRY [...] BODY FLUID STAT 08/18/2024 5:25 AM CDT UT CRITICAL CARE ILL/INJURED PATIENT INIT 30-74 MIN [...] ERYTHROCYTE SEDIMENTATION RATE Routine 07/10/2024 9:42 AM FLOW FLOOR ATTENDANT Urticarial vasculitis THIOPURINE METABOLITES Routine 5 9:42 AM FLOW FLOOR ATTENDANT 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 COMPREHENSIVE METABOLIC PANEL Routine 07/10/2024 9:42 AM FLOW FLOOR ATTENDANT Urticarial vasculitis CRP (ACUTE PHASE) Routine 07/10/2024 9:4 2 AM FLOW FLOOR ATTENDANT Urticarial vasculitis CBC WITH AUTO DIFFERENTIAL Routine 07/10/2024 9:42 AM FLOW FLOOR ATTENDANT Urticarial vasculitis MRI MRA VESSEL WALL IMAGING W WO CONTRAST Schedule Routine, Read Routine (OP Routine) 07/08/2024 12:12 PM FLOW FLOOR ATTENDANT Vasculitis, PROFESSOR OF RELIGION Meningoencephalit is HEPATITIS PANEL, ACUTE Routine 11:38 AM CDT Rash and other nonspecific skin eruption from Last 3 Months or Most Recently Relevant to Health Maintenance Results * G6PD qualitative with reflex to quantitative (08/23/2024 2:21 PM CDT) G6PD Normal Normal Comment: Interp data: G6PD activity should be interpreted in the context of a patient's hematocrit. Hematocrit < 20% may lead to a falsely deficient result, while hematocrit > 50% may lead to a falsely normal result. Current interpretive data was last revised on 2019. Blood 08/23/2024 2:21 PM CDT 08/23/2024 2:46 PM CDT us Mark Hernandez MD LAB BLOOD ORDERABLES Keyona casey Result [facility] [place] [address] * POCT glucose (08/23/2024 12:14 PM CDT) Glucose, POC 149 70 - 199 mg/dL Blood 08/23/2024 12:1 4 PM CDT 08/23/2024 12:14 PM CDT Mark Hernandez MD LAB POCT ORDERABLES - DEV ICE Final Result Performing Organization Address City[facility] Co de Phone Number KARMA [facility] [place] [address] * POCT glucose (08/23/2024 8:20 AM CDT) Glucose, POC 117 70 - 199 mg/dL Blood 08/23/2024 8:20 AM CDT 08/23/2024 8:20 AM CDT Mark Hernandez MD LAB POCT ORDERABLES - DEV ICE Final Result Performing Organization Address [facility] de Phone Number [facility] [place] [address] * eGFR (08/23/2024 5:20 AM CDT) eGFR [...] MD LAB BLOOD ORDERABLES Keyona l Result [facility] [place] [address] * (ABNORMAL) Erythrocyte sedimentation rate (08/23/2024 5:20 AM CDT) Erythrocyte sedimentation rate 94(H) 1 - 30 mm/hr Blood 08/23/2024 5:2 0 AM CDT 08/23/2024 5:42 AM CDT Mark Hernandez MD LAB BLOOD ORDERABLES Keyona casey Result Performing Organization Address [facility] Co de Phone Number [facility] [place] [address] * (ABNORMAL) CBC without differential (08/23/2024 5:20 AM CDT) WBC 15.6(H) 3.8 - 9.9 K/cumm Hgb 8.6(L) 11.9 - 15.5 g/dL [facility] Hct 25.2(L) 35.6 - 45.5 % [facility] Plt 333 150 - 400 K/cumm [facility] MPV 9.3 9.1 - 12.3 fL [facility] RBC 2.69(L) 3.90 - 5.20 M/cumm [facility] MCV 93.7 81.3 - 96.4 fL [facility] MCH 32.0 27.1 - 33.3 pg [facility] MCHC 34.1 32.3 - 35.7 g/dL [facility] RDW CV 14.5 11.1 - 14.9 % [facility] RDW SD 49.2(H) 35.7 - 48.1 fL [facility] NRBC abs 0.00 0.00 - 0.01 K/cumm [facility] Blood 08/23/2024 5:20 AM CDT 08/23/2024 5:42 AM CDT Mark Hernandez MD LAB BLOOD ORDERABLES Keyona l Result Performing Organization Address City/State/[facility] Co de Phone Number [facility] [place] [address] * (ABNORMAL) CRP (acute phase) (08/23/2024 5:20 AM CDT) Pathologist [facility] CRP 30.8(H) <=10.0 mg/L Blood 08/23/2024 5:20 AM CDT 08/23/2024 5:42 AM CDT Mark Hernandez MD LAB BLOOD ORDERABLES Keyona l Result Performing Organization Address [facility] de Phone Number [facility] [place] [address] * Basic metabolic panel (08/23/2024 5:20 AM CDT) [facility] Sodium 137 135 - 145 mmol/L Potassium, pl 4.8 3.3 - 4.9 mmol/L [facility] Chloride 101 97 - 110 mmol/L [facility] CO2 28 22 - 32 mmol/L [facility] Anion gap 8 2 - 15 mmol/L [facility] BUN 18 6 - 25 mg/dL [facility] Creatinine 0.73 0.60 - 1.10 mg/dL [facility] Glucose 132 70 - 199 mg/dL [facility] Comment: Interpretive Data Fasting glucose >/= 126 [...] 2022. Calcium 9.4 8.5 - 10.3 mg/dL [facility] Blood 08/23/2024 5:20 AM CDT 08/23/2024 5:42 AM CDT Mark Hernandez MD LAB BLOOD ORDERABLES Keyona l Result Performing Organization Address [facility] Co de Phone Number [facility] [place] [address] * POCT glucose (08/22/2024 9:22 PM CDT) Glucose, POC 172 70 - 199 mg/dL Blood 08/22/2024 9:22 PM CDT 08/22/2024 9:22 PM CDT Mark Hernandez MD LAB POCT ORDERABLES - DEV ICE Final Result Performing Organization Address [facility] Co de Phone Number [facility] [address] * POCT glucose (08/22/2024 4:59 PM CDT) Glucose, POC 172 70 - 199 mg/dL Blood 08/22/2024 4:59 PM CDT 08/22/2024 4:59 PM CDT Mark Hernandez MD LAB POCT ORDERABLES - DEV ICE Final Result Performing Organization Address [facility] Co de Phone Number [facility] [address] * POCT glucose (08/22/2024 12:24 PM CDT) Glucose, POC 156 70 - 199 mg/dL Blood 08/22/2024 12:2 4 PM CDT 08/22/2024 12:24 PM CDT Mark Hernandez MD LAB POCT ORDERABLES - DEV ICE Final Result Performing Organization Address [facility] Co de Phone Number [facility] [place] [address] * POCT glucose (08/22/2024 8:05 AM CDT) Glucose, POC 135 70 - 199 mg/dL Blood 08/22/2024 8:05 AM CDT 08/22/2024 8:05 AM CDT Mark Hernandez MD LAB POCT ORDERABLES - DEV ICE Final Result Performing Organization Address [facility] Co de Phone Number [facility] [place] [address] * POCT glucose (08/21/2024 9:15 PM CDT) Glucose, POC 164 70 - 199 mg/dL Blood 08/21/2024 9:1 5 PM CDT 08/21/2024 9:15 PM CDT Mark Hernandez MD LAB POCT ORDERABLES - DEV ICE Final Result Performing Organization Address [facility] Co de Phone Number [facility] [place] [address] * POCT glucose (08/21/2024 5:48 PM CDT) Glucose, POC 144 70 - 199 mg/dL Blood 08/21/2024 5:48 PM CDT 08/21/2024 5:48 PM CDT Mark Hernandez MD LAB POCT ORDERABLES - DEV ICE Final Result Performing Organization Address [facility] Co de Phone Number [facility] [place] [address] * UT DIAGNOSTIC LUMBAR SPINAL PUNCTURE (08/21/2024 3:17 PM CDT) Narrative Mark Hernandez MD - 08/21/2024 3:17 PM CDT Mark Hernandez MD 08/21/2024 3:19 PM Lumbar Puncture Date/Time: 08/21/2024 3:17 PM Performed by: Mark Hernandez MD Authorized by: Mark Hernandez MD Randalia Protocol: RN Notified of Procedure: yes Informed consent: Risks, benefits, alternatives discussed and patient/training representative/guardian agrees and accepts Patient's stated name/ [...] and matched to patient identification: yes Responsible republican for transporting specimen(s) to lab determined: yes us Mark Hernandez MD IN CLINIC/BEDSIDE ORDERAB LES Final Result * Myelin Oligodendrocyte Glycoprotein (MOG-IgG1) Fluorescence-Activated Cell Sorting (FACS) (08/21/2024 1:06 PM CDT) [facility] MOG IgG ser Negative Negative [place] [facility] Comment: No informative autoantibodies were detected in this evaluation. A negative result does not preclude a diagnosis of an inflammatory PROFESSOR OF RELIGION demyelinating disorder. ADDITIONAL INFORMATION This test was developed and its performance characteristics determined by [facility] in a manner consistent with CLIA requirements. This test has not been cleared or approved by the U.S. Food and Drug Administration. Test Performed by: [facility] [place] [address] Stone Hand: Dawit Avendano Ph.D.; CLIA# [id number] Blood 08/21/2024 1:06 PM CDT 08/21/2024 2:12 PM CDT us Mark Hernandez MD LAB BLOOD ORDERABLES Keyona carmela Result [facility] [place] [address] [place] [facility] * NMO (neuromyelitis optica) IgG, serum (08/21/2024 1:06 PM CDT) [facility] NMO/AQP4 IgG ser Negative Negative [place] [facility] Comment: Recommend repeat testing in 6 months if clinical suspicion is high. Negative result can occur in the setting of immunosuppression. ADDITIONAL INFORMATION This test was developed and its performance characteristics determined by [facility] in a manner consistent with CLIA requirements. This test has not been cleared or approved by the U.S. Food and Drug Administration. Test Performed by: [facility] - [address] [address] Stone Hand: Dawit Avendano Ph.D.; IA# [id number] Blood 08/21/2024 1:06 PM CDT 08/21/2024 2:13 PM CDT Mark Hernandez MD LAB BLOOD ORDERABLES Keyona l Result Performing Organization Address [facility] Co de Phone Number [place] [address] [facility] ref Lab * POCT glucose (08/21/2024 12:45 PM CDT) Glucose, POC 159 70 - 199 mg/dL Blood 08/21/2024 12:4 5 PM CDT 08/21/2024 12:45 PM CDT Mark Hernandez MD LAB POCT ORDERABLES - DEV ICE Final Result Performing Organization Address [facility] Co de Phone Number [facility] [address] * POCT glucose (08/21/2024 8:12 AM CDT) Glucose, POC 136 70 - 199 mg/dL Blood 08/21/2024 8:12 AM CDT 08/21/2024 8:12 AM CDT Shailesh Wong MD LAB POCT ORDERABLES - DEVICE Final Result Performing Organization Address [facility] Co de Phone Number [facility] [address] * eGFR (08/20/2024 9:49 PM CDT) eGFR >90 >=60 mL/min/1. 73 m2 [...] ORDERABLES Keyona l Result Performing Organization Address City/[facility]/ZIP Co de Phone Number [facility] [place] [address] * (ABNORMAL) Erythrocyte sedimentation rate (08/20/2024 9:49 PM CDT) Pathologist [facility] Erythrocyte sedimentation rate 95(H) 1 - 30 mm/hr Blood 08/20/2024 9:49 PM CDT 08/20/2024 10:04 PM CDT Shailesh Wong MD LAB BLOOD ORDERABLES Final Re sult [facility] [place] [address] * (ABNORMAL) CBC without differential (08/20/2024 9:49 PM CDT) WBC 13.8(H) 3.8 - 9.9 K/cumm Hgb 9.9(L) 11.9 - 15.5 g/dL [facility] Hct 28.4(L) 35.6 - 45.5 % [facility] Plt 232 150 - 400 K/cumm [facility] MPV 9.7 9.1 - 12.3 fL [facility] RBC 3.08(L) 3.90 - 5.20 M/cumm [facility] MCV 92.2 81.3 - 96.4 fL [facility] MCH 32.1 27.1 - 33.3 pg [facility] MCHC 34.9 32.3 - 35.7 g/dL [facility] RDW CV 14.1 11.1 - 14.9 % [facility] RDW SD 47.7 35.7 - 48.1 fL [facility] NRBC abs 0.00 0.00 - 0.01 K/cumm [facility] Blood 08/20/2024 9:49 PM CDT 08/20/2024 10:04 PM CDT us Mark Hernandez MD LAB BLOOD ORDERABLES Keyona l Result Performing Organization Address City/[facility]/ZIP Co de Phone Number [facility] [place] [address] * (ABNORMAL) CRP (acute phase) (08/20/2024 9:49 PM CDT) [facility] CRP 195.4(H) <=10.0 mg/L Blood 08/20/2024 9:49 PM CDT 08/20/2024 10:04 PM CDT Shailesh Wong MD LAB BLOOD ORDERABLES Final Re sult [facility] [place] [address] * (ABNORMAL) Basic metabolic panel (08/20/2024 9:49 PM CDT) [facility] Sodium 131(L) 135 - 145 mmol/L Potassium, pl 4.7 3.3 - 4.9 mmol/L [facility] Chloride 95(L) 97 - 110 mmol/L [facility] CO2 25 22 - 32 mmol/L [facility] Anion gap 11 2 - 15 mmol/L [facility] BUN 18 6 - 25 mg/dL [facility] Creatinine 0.65 0.60 - 1.10 mg/dL [facility] Glucose 157 70 - 199 mg/dL [facility] Comment: Interpretive Data Fasting glucose >/= 126 [...] 2022. Calcium 8.9 8.5 - 10.3 mg/dL [facility] Blood 08/20/2024 9:49 PM CDT 08/20/2024 10:04 PM CDT us Mark Hernandez MD LAB BLOOD ORDERABLES Keyona l Result [facility] [place] [address] * POCT glucose (08/20/2024 9:20 PM CDT) Glucose, POC 168 70 - 199 mg/dL Blood 08/20/2024 9:20 PM CDT 08/20/2024 9:20 PM CDT us Shailesh Wong MD LAB POCT ORDERABLES - DEVICE Final Result [facility] [place] [address] * POCT glucose (08/20/2024 9:14 PM CDT) Glucose, POC 149 70 - 199 mg/dL Blood 08/20/2024 9:14 PM CDT 08/20/2024 9:14 PM CDT Shailesh Wong MD LAB POCT ORDERABLES - DEVICE Final Result Performing Organization Address [facility] de Phone Number [facility] [address] * POCT glucose (08/20/2024 5:26 PM CDT) Glucose, POC 140 70 - 199 mg/dL Blood 08/20/2024 5:26 PM CDT 08/20/2024 5:26 PM CDT Shailesh Wong MD LAB POCT ORDERABLES - DEVICE Final Result Performing Organization Address [facility] Phone Number [facility] [place] [address] * POCT glucose (08/20/2024 1:32 PM CDT) Glucose, POC 132 70 - 199 mg/dL Blood 08/20/2024 1:32 PM CDT 08/20/2024 1:32 PM CDT Shailesh Wong MD LAB POCT ORDERABLES - DEVICE Final Result Performing Organization Address [facility] Phone Number [place] [address] * MRI MRA Vessel Wall Imaging W [...] 2. Magnetic resonance angiography (MRA) of the tecarv-ea-Xpuoba without and with contrast 3. 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 Magnetic resonance angiography of the terhqb-go-Gxhtcb was performed using a separate data acquisition with a non-contrast [id number] technique and a post-contrast technique to produce [...] on prior study is not redemonstrated. The tmqogz-hr-Gcisqu is complete. The anterior and middle cerebral [...] 2. Magnetic resonance angiography (MRA) of the nxtdlt-jf-Wteafv without and with contrast 3. 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 Magnetic resonance angiography of the smpquc-nn-Jaqwfd was performed using a separate data acquisition with a non-contrast soef-mj-qsxaji technique and a post-contrast technique to produce [...] on prior study is not redemonstrated. The tkfbuj-xj-Komouy is complete. The anterior and middle cerebral [...] agrees with it. Electronically signed by: Julián Harkisn M.D. Shailesh Wong MD IMG MRI PROCEDURES [...] 2. Magnetic resonance angiography (MRA) of the enyggz-uh-Hroklx without and with contrast 3. 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 Magnetic resonance angiography of the szdobh-pv-Uewlsf was performed using a separate data acquisition with a non-contrast nmfk-nf-vcshzp technique and a post-contrast technique to produce [...] on prior study is not redemonstrated. The zgesfc-ue-Hgbhtq is complete. The anterior and middle cerebral [...] 2. Magnetic resonance angiography (MRA) of the yokpji-tj-Xgwdml without and with contrast 3. 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 Magnetic resonance angiography of the wmjpqb-be-Ottvmz was performed using a separate data acquisition with a non-contrast sthf-ii-mwjaxt technique and a post-contrast technique to produce [...] on prior study is not redemonstrated. The afhzht-mm-Gwsmqz is complete. The anterior and middle cerebral [...] * POCT glucose (08/20/2024 7:55 AM CDT) Glucose, POC 131 70 - 199 mg/dL Blood 08/20/2024 7:55 AM CDT 08/20/2024 7:55 AM CDT Shailesh Wong MD LAB POCT ORDERABLES - DEVICE Final Result [facility] [place] [address] * Neuromuscular Specimen Tracking Inpatient Blood (08/19/2024 11:16 PM CDT) Blood 08/19/2024 11:1 6 PM CDT 08/19/2024 11:[address] [facility] - 08/19/2024 11:16 PM CDT Blood draw complete Shailesh Wong MD LAB BLOOD ORDERABLES Final Re sult Performing Organization Address [facility] [place] [address] * Immunotyping, serum with interpretation (08/19/2024 11:16 PM CDT) Immunosubtraction Please see comment Comment: NO PARAPROTEIN DETECTED Reviewed and signed by Elmo Luna MD, PhD 08/20/2024 Blood 08/19/2024 11:1 6 PM CDT 08/19/2024 11:32 PM CDT Shailesh Wong MD LAB BLOOD ORDERABLES Final Re sult Performing Organization Address [facility] [place] [address] * (ABNORMAL) Lupus Anticoagulant Panel plus Reflexes (08/19/2024 11:16 PM CDT) PT 12.8 9.7 - 13.0 sec INR 1.18 0.90 - 1.20 [facility] Comment: Interpretive data Oral anticoagulant therapeutic ranges: Venous thromboembolism prophylaxis or treatment: 2.0-3.0 CARDIOLOGY Standard range: 2.0-3.0 High-intensity range: 2.5-3.5 Refer to indication-specific guidelines for appropriate target ranges for prosthetic heart valve replacement. Current interpretive data was last revised on 2019. aPTT 36 28 - [address] [facility] Comment: Interpretive Data Heparin therapeutic range: 66.0 - 100.0 seconds. Range based on correlation with therapeutic heparin activity range of 0.3 - 0.7 Units/mL. Current interpretive data was last revised on 2023. DRVVT screen ratio 1.45(H) 0.00 - 1.[address] [facility] DRVVT confirm ratio 1.22 Ratio [facility] S/C Ratio 1.18 0.00 - 1.20 Ratio [facility] SCT Screen Ratio 1.47(H) 0.00 - 1.[address] [facility] SCT Confirm Ratio 1.[address] [facility] [facility] SCT S/C Ratio 1.25(H) 0.00 - 1.16 Ratio [facility] Lupus anticoagulant, interp Positive( A) [facility] Comment: Interpretive data Lupus anticoagulants (LA) are acquired autoantibodies that interfere with invitro clotting in a phospholipid-dependent manner and are associated with an increased risk of thromboembolic events and complications. Routine APTT and PT reagents are not sensitive to inhibition by LA, and should not be used as screening tests. The laboratory follows ISTH 2009 guidelines (Franciscoo, 2009) for LA testing and interpretation: Two [...] repeat testing at least 12 weeks later (Hoakis, 2006). Prior to LA testing, the laboratory screens patient plasma samples for evidence of heparin contamination, which is neutralized prior to LA testing, and the following interfering conditions which require canceling LA testing: INR >3.0, fibrinogen < 100 mg/dl, use of direct oral or IV anticoagulants other than heparin. References: 1) Michael Vaz, Kat A, Gifty JH, Berta TL, Kim M, Sequeira PG. Update of the guidelines for lupus anticoagulant detection. J Thromb Haemost. 2009; 7:7252-2669. 2. Darrell S. et al. International consensus statement on an update of the classification criteria for definite antiphospholipid syndrome (APS). J Thromb Haemost. 2006; 4:295-306. Current interpretive data was last revised on 2018 Blood 08/19/2024 11:1 6 PM CDT 08/20/2024 12:33 AM CDT Shailesh Wong MD LAB BLOOD ORDERABLES Final Re sult Performing Organization Address [facility] Co de Phone Number [facility] [place] [address] * Miscellaneous Test Sendout Chemistry (08/19/2024 11:16 PM CDT) Test name Varicella-Zos ter Virus (VZV) Antibody, IgG & IgM, Serum Result 1 Specimen Type: Serum Result: See scanned result in Medical Record. [facility] Blood 08/19/2024 11:1 6 PM CDT 08/21/2024 1:25 PM CDT Mark Hernandez MD LAB BLOOD ORDERABLES Keyona l Result Performing Organization Address [facility] Co de Phone Number [facility] [place] [address] * (ABNORMAL) Immunoglobulin free light chains (08/19/2024 11:16 PM CDT) Niobrara/Lambda ratio [facility] 0.88 0.26 - 1.65 Comment: Interpretive Data The Binding Site FreeLite assay procedure was used. Results from different manufacturers or methods may not be comparable. Serial testing should be performed using the same methods and instrumentation. Current Interpretive Data was last revised on 2023. Niobrara free light chain [facility] 2.83(H) 0.33 - 1.94 mg/dL [facility] Comment: Interpretive Data The Binding Site FreeLite assay procedure was used. Results from different manufacturers or methods may not be comparable. Serial testing should be performed using the same methods and instrumentation. Current Interpretive Data was last revised on 2023. Lambda free light chain [facility] 3.22(H) 0.57 - 2.63 mg/dL [facility] Comment: Interpretive Data The Binding Site FreeLite assay procedure was used. Results from different manufacturers or methods may not be comparable. Serial testing should be performed using the same methods and instrumentation. Current Interpretive Data was last revised on 2023. Blood 08/19/2024 11:1 6 PM CDT 08/19/2024 11:32 PM CDT us Shailesh Wong MD LAB BLOOD ORDERABLES Final Re sult [facility] [place] [address] * (ABNORMAL) Cardiolipin antibody, IgG (08/19/2024 11:16 [...] ELISEO. These results were obtained with the [employer] BioPlex 2200 System. Cardiolipin IgG values obtained with different manufacturers' assay methods may not be used interchangeably. Current interpretive data was last revised on 2016. Blood 08/19/2024 11:1 6 PM CDT 08/19/2024 11:32 PM CDT Shailesh Wong MD LAB BLOOD ORDERABLES Final Re sult Performing Organization Address [facility] Co de Phone Number [facility] [place] [address] * Beta 2 glycoprotein IgM Ab (08/19/2024 11:16 PM CDT) [facility] Beta-2 glycoprotein I, IgM 0.2 <=19.9 units/mL [...] factor. These results were obtained with the [employer] BioPlex 2200 System. Beta-2 GP1 IgM values obtained with different manufacturers' assay methods may not be used interchangeably. Current interpretive data was last revised on 2016. Blood 08/19/2024 11:1 6 PM CDT 08/19/2024 11:32 PM CDT Shailesh Wong MD LAB BLOOD ORDERABLES Final Re sult Performing Organization Address [facility]/ZIP Co de Phone Number [facility] [place] [address] * (ABNORMAL) Beta 2 glycoprotein IgG Ab (08/19/2024 11:16 PM CDT) Pathologist [facility] Beta-2 glycoprotein I, IgG 69.0(H) <=19.9 units/mL Comment: Interpretive Data Negative: <20 U/mL Positive: > or = 20 U/mL Beta-2 glycoprotein 1 (Beta-2 GP1) antibodies are a more specific marker of thrombotic risk. It is expected that some samples will be ACL positive and Beta- 2 [id number]. In order to improve specificity, the International Congress on Antiphospholipid Antibodies recommends Beta-2 GP1 antibodies of IgG or IgM isotype (> the 99th percentile), obtained twice, at least 12 weeks apart, to support a diagnosis of antiphospholipid syndrome. The cutoff for this assay was developed from data based on the 99th percentile. These results were obtained with the [employer] 2200 System. Beta 2GP1 IgG values obtained with different manufacturers' assay methods may not be used interchangeably. Current interpretive data was last revised on 2016. Blood 08/19/2024 11:1 6 PM CDT 08/19/2024 11:32 PM CDT Shailesh Wong MD LAB BLOOD ORDERABLES Final Re sult Performing Organization Address [facility] Co de Phone Number [facility] [place] [address] * PR3 - proteinase 3, Ab (08/19/2024 11:16 PM CDT) Pathologist [facility] Proteinase 3 ab <0.2 <=0.9 Ab Index Comment: Interpretive Data Negative: <1 Ab Index Positive: > or = 1 Ab Index Current interpretive data was last revised on 2016. Blood 08/19/2024 11:1 6 PM CDT 08/19/2024 11:32 PM CDT Shailesh Wong MD LAB BLOOD ORDERABLES Final Re sult Performing Organization Address [facility] Co de Phone Number [facility] [place] [address] * MPO - myeloperoxidase antibody (08/19/2024 11:16 PM CDT) Myeloperoxidase ab <0.2 <=0.9 Ab Index Comment: Interpretive Data Negative: <1 Ab Index Positive: > or = 1 Ab Index Current interpretive data was last revised on 2016. Blood 08/19/2024 11:1 6 PM CDT 08/19/2024 11:32 PM CDT Shailesh Wong MD LAB BLOOD ORDERABLES Final Re sult Performing Organization Address [facility] Co de Phone Number [facility] [place] [address] * Cyclic citrul peptide antibody, IgG (08/19/2024 11:16 PM CDT) Pathologist [facility] CCP Ab <0.5 <=2.9 units/mL Comment: Interpretive data Negative: <3 units/mL Positive: > or equal to 3 units/mL Current interpretive data was last revised on 2016. Blood 08/19/2024 11:1 6 PM CDT 08/19/2024 11:32 PM CDT Shailesh Wong MD LAB BLOOD ORDERABLES Final Re sult Performing Organization Address [facility] Co de Phone Number [facility] [place] [address] * Cardiolipin antibody, IgM (08/19/2024 11:16 PM CDT) Pathologist [facility] Cardiolipin, IgM 0.2 <=19.9 MPL U/mL Comment: [...] antibodies. These results were obtained with the [employer] System. Cardiolipin IgM values obtained with different manufacturers' assay methods may not be used interchangeably. Current interpretive data was last revised on 2016. Blood 08/19/2024 11:1 6 PM CDT 08/19/2024 11:32 PM CDT Shailesh Wong MD LAB BLOOD ORDERABLES Final Re sult Performing Organization Address [facility]/ZIP Co de Phone Number [facility] [place] [address] * (ABNORMAL) Rheumatoid factor (08/19/2024 11:16 PM CDT) [facility] Rheumatoid factor, quant 21.0(H) 0.1 - 15.0 IUnits/mL Blood 08/19/2024 11:1 6 PM CDT 08/19/2024 11:32 PM CDT Shailesh Wong MD LAB BLOOD ORDERABLES Final Re sult [facility] [place] [address] * eGFR (08/19/2024 10:24 PM CDT) eGFR [...] MD LAB BLOOD ORDERABLES Keyona l Result [facility] [place] [address] * (ABNORMAL) Calcium, ionized (08/19/2024 10:24 PM CDT) Calcium, Ionized 4.47(L) 4.50 - 5.10 mg/dL Blood 08/19/2024 10:2 4 PM CDT 08/19/2024 10:38 PM CDT us Shailesh Wong MD LAB BLOOD ORDERABLES Final Re sult [facility] [place] [address] * Vitamin D 25 hydroxy (08/19/2024 10:24 PM CDT) [facility] Vitamin D 25-OH 36 30 - 80 ng/mL Blood 08/19/2024 10:2 4 PM CDT 08/19/2024 10:53 PM CDT Shailesh Wong MD LAB BLOOD ORDERABLES Final Re sult Performing Organization Address [facility]/ZIP Co de Phone Number [facility] [place] [address] * (ABNORMAL) CBC without differential (08/19/2024 10:24 PM CDT) [facility] WBC 7.8 3.8 - 9.9 K/cumm Hgb 10.0(L) 11.9 - 15.5 g/dL [facility] Hct 28.6(L) 35.6 - 45.5 % [facility] Plt 196 150 - 400 K/cumm [facility] MPV 9.6 9.1 - 12.3 fL [facility] RBC 3.04(L) 3.90 - 5.20 M/cumm [facility] MCV 94.1 81.3 - 96.4 fL [facility] MCH 32.9 27.1 - 33.3 pg [facility] MCHC 35.0 32.3 - 35.7 g/dL [facility] RDW CV 14.5 11.1 - 14.9 % [facility] RDW SD 49.3(H) 35.7 - 48.1 fL [facility] NRBC abs 0.00 0.00 - 0.01 K/cumm [facility] Blood 08/19/2024 10:2 4 PM CDT 08/19/2024 10:53 PM CDT Mark Hernandez MD LAB BLOOD ORDERABLES Keyona l Result [facility] [place] [address] * (ABNORMAL) Basic metabolic panel (08/19/2024 10:24 PM CDT) Sodium 129(L) 135 - 145 mmol/L Potassium, pl 4.1 3.3 - 4.9 mmol/L [facility] Chloride 95(L) 97 - 110 mmol/L [facility] CO2 24 22 - 32 mmol/L [facility] Anion gap 10 2 - 15 mmol/L [facility] BUN 8 6 - 25 mg/dL [facility] Creatinine 0.76 0.60 - 1.10 mg/dL [facility] Glucose 184 70 - 199 mg/dL [facility] Comment: Interpretive Data Fasting glucose >/= 126 [...] 2022. Calcium 8.8 8.5 - 10.3 mg/dL [facility] Blood 08/19/2024 10:2 4 PM CDT 08/19/2024 10:53 PM CDT us Mark Hernandez MD LAB BLOOD ORDERABLES Keyona l Result [facility] [place] [address] * POCT glucose (08/19/2024 9:51 PM CDT) Glucose, POC 181 70 - 199 mg/dL Blood 08/19/2024 9:51 PM CDT 08/19/2024 9:51 PM CDT us Shailesh Wong MD LAB POCT ORDERABLES - DEVICE Final Result Performing Organization Address [facility]/ZIP Co de Phone Number [facility] [place] [address] * POCT glucose (08/19/2024 5:50 PM CDT) Glucose, POC 93 70 - 199 mg/dL Blood 08/19/2024 5:50 PM CDT 08/19/2024 5:50 PM CDT us Shailesh Wong MD LAB POCT ORDERABLES - DEVICE Final Result [facility] [place] [address] * US Head Neck Soft Tissue (08/19/2024 [...] it. Electronically signed by: Milo Murdock M.D. Shailesh Wong MD IM US PROCEDURES Final Resul t * BIOPSY - TEMPORAL ARTERY (08/19/2024 1:29 PM CDT) Anatomical Region Laterality Modality X-Ray Angiograph y Narrative 08/19/2024 2:36 PM CDT Please see OpNote for result. Ramesh Graham MD SURGICAL CASE ORDERS Fin al Result * Surgical pathology (08/19/2024 1:13 PM CDT) Tissue (Temporal artery, biopsy) 08/19/2024 1:[address] [facility] - 08/21/2024 10:24 PM CDT EPIC results best viewed via link to PDF [facility] Eleni Gardner [facility] [place] [address] Note to Patients: This report may contain [...] Gender: F : 1955 (Age: 69) Address: [address] [place], [place] [id number] Hospital #: [id number] Taken:08/19/2024 Received:08/19/2024 Reported: 08/21/2024 Patient Type: [facility] Inpatient Service: Neurology Location: [place] [address] Physician(s): Gauri Patrick M.D. Tiffany Kay Brocke, MD Diagnosis: Artery, right temporal, biopsy - No evidence of arteritis - Mild arterial sclerosis - See comment sc/08/20/2024 11:22 By this signature, I attest that [...] Surgical Pathology and Flow Cytometry Departments at [facility] as part of an ongoing clinical quality analyst program and in compliance with federally [...] Surgical Pathology and Flow Cytometry Departments of [facility]. It has not been cleared or approved by the U. S. Food and Drug Administration. IMAGES AND SCANNED DOCUMENTS, IF INCLUDED, ONLY VIEWABLE IN PDF VERSION OF REPORT Ramesh Graham MD LAB PATHOLOGY ORDERABLES Final Result PATHOLOGY [facility] 3rd Floor [place], [place] [phone] * Surgical pathology (08/19/2024 12:05 PM CDT) Tissue (Skin, biopsy) 08/19/2024 12:05 PM CDT 08/19/2024 12:[address] [facility] - 08/21/2024 11:22 AM CDT EPIC results best viewed via link to PDF [facility] Eleni Gardner Laboratory [place] [address] Note to Patients: This report may contain [...] Gender: F : 1955 (Age: 69) Address: [address] [place], [place] [id number] Hospital #: [id number] Taken:08/19/2024 Received:08/19/2024 Reported: 08/21/2024 Patient Type: [facility] Inpatient Service: Neurology Location: [place] [address] Physician(s): MD Janna Winters M.D. Aaron John [...] Dermatopathology Center, Department of Pathology and Immunology, [facility], [facility], [address], [place] [address] CLIA # [id number] Demetria Loco M.D. History: The patient is [...] The tissue is submitted entirely for immunofluorescence. sxst/08/19/2024 12:39 PA(s): Renate Philippe By this signature, I attest that the above diagnosis is based upon my personal examination of the slides(and/or other material). Addenda/Procedures The performance characteristics of some immunohistochemical stains, fluorescence in-situ hybridization tests and immunophenotyping by flow cytometry cited in this report (if any) were determined by the Surgical Pathology and Flow Cytometry Departments at [facility] as part of an ongoing clinical quality analyst program and in compliance with federally [...] Surgical Pathology and Flow Cytometry Departments of [facility]. It has not been cleared or approved by the U. S. Food and Drug Administration. IMAGES AND SCANNED DOCUMENTS, IF INCLUDED, ONLY VIEWABLE IN PDF VERSION OF REPORT us Shailesh Wong MD LAB PATHOLOGY ORDERABLES Keyona casey Result Performing Organization Address City/State/[facility] Co de Phone Number PATHOLOGY [facility] [address] [place], [place] [phone] * VEIN DUPLEX LOWER EXTREMITY RIGHT LIMITED, UNILATERAL (08/19/2024 10:31 AM CDT) Anatomical Region Laterality Modality Vascular Right Ultrasound 08/19/2024 10:2 0 AM CDT Narrative 08/19/2024 6:52 PM CDT [facility] - Department of Vascular Surgery, Vascular Laboratory [address] [place] [id number] Lower Extremity Venous Ultrasound Report Patient Name: TOÑA YO : 1955 (69y 1m) Study Date: 08/19/2024 10:20:09 AM Gender: F Tech: AL Location: [id number] Ref Provider: SHAILESH WONG Quality: Adequate Order [...] Leg, Right, query DVT - FINDINGS: Performing Manager Department: Janna Cruz RVT. Right: Venous Doppler signals [...] above. Electronically Signed By: Tommy Way MD [facility] [phone] 08/19/2024 6:17:28 PM CDT Procedure Note Tommy Way MD - 08/19/2024 [facility] - Department of Vascular Surgery,Vascular Laboratory [address] [place], [place] [id number] Lower Extremity Venous Ultrasound Report Patient Name: TOÑA YO : 1955 (69y 1m) Study Date: 08/19/2024 10:20:09 AM Gender: F Tech: AL Location: [id number] Ref Provider: SHAILESH WONG Quality: Adequate Order Provider: SHAILESH WONG PROCEDURES: Vascular Report: Venous Duplex imaging was performed in the right lower extremity. Thecommon femoral, femoral, popliteal, posterior tibial, peroneal veins were evaluated forpatency, spontaneity and phasicity with Doppler, compression and augmentationmaneuvers. Great saphenous vein proximal at the junction was evaluated with compressionmaneuvers. INDICATIONS: Pain in Leg, Right, query DVT - FINDINGS: Performing Manager Department: Janna Cruz RVT. Right: Venous Doppler signals [...] that is provided above. Electronically Signed By: Tomym Way MD [facility] [phone] 08/19/2024 6:17:28 PM CDT Shailesh Wong MD IM US PROCEDURES Final Resul t * PET/CT FDG [...] FDG-PET/CT IMAGING DATE OF STUDY: 08/19/2024 SCANNER: [facility] PET [employer] (NV1). This is a high-resolution scanner, which [...] obtained. The study was interpreted on the [employer] workstation. The mean liver SUV (reported for plant quality manager purposes) is 2.2. The total scanned area [...] from 02/28/2024. Left apical scarring. Procedure Note Connor Verma, DO - 08/19/2024 EXAMINATION: TUMOR FDG-PET/CT IMAGING DATE OF STUDY: 08/19/2024 SCANNER: [facility] [employer] (NV1). This is a high-resolution scanner, which [...] obtained. The study was interpreted on the [employer] workstation. The mean liver SUV (reported for plant quality manager purposes) is 2.2. The total scanned area [...] MD LAB BLOOD ORDERABLES Final Re sult [facility] [place] [address] * (ABNORMAL) Basic metabolic panel (08/19/2024 6:41 AM CDT) Sodium 130(L) 135 - 145 mmol/L Potassium, pl 3.9 3.3 - 4.9 mmol/L [facility] Chloride 96(L) 97 - 110 mmol/L [facility] CO2 28 22 - 32 mmol/L [facility] Anion gap 6 2 - 15 mmol/L [facility] BUN 8 6 - 25 mg/dL [facility] Creatinine 0.68 0.60 - 1.10 mg/dL [facility] Glucose 98 70 - 199 mg/dL [facility] Comment: Interpretive Data Fasting glucose >/= 126 [...] 2022. Calcium 8.8 8.5 - 10.3 mg/dL [facility] Blood 08/19/2024 6:41 AM CDT 08/19/2024 6:53 AM CDT Shailesh Wong MD LAB BLOOD ORDERABLES Final Re sult Performing Organization Address [facility] de Phone Number [facility] [place] [address] * Sodium, urine, random (08/19/2024 1:39 AM CDT) Sodium, ur <20 mmol/L Comment: Repeated and Verified Interpretive Data No reference range established. Current interpretive data was last revised 2018. Urine 08/19/2024 1:39 AM CDT 08/19/2024 2:38 AM CDT Shailesh Wong MD LAB URINE ORDERABLES Final Re sult Performing Organization Address [facility] de Phone Number [facility] [place] [address] * Osmolality, urine (08/19/2024 1:39 AM CDT) Osmo, ur 187 mOsm/kg Urine 08/19/2024 1:39 AM CDT 08/19/2024 2:38 AM CDT Result [facility] Shailesh Wong MD LAB URINE ORDERABLES Final Re sult Performing Organization Address [facility] de Phone Number [facility] [address] * Urinalysis reflex to microscopic and culture Urine (08/18/2024 10:30 PM CDT) Color, ur Straw Yellow Clarity, ur Clear Clear [facility] Specific gravity, ur 1.012 1.003 - 1.030 [facility] pH, urine 6.5 [facility] Comment: Interpretive Data U rine pH is affected by diet, medications, systemic acid-base disturbances, and renal tubular function. pH may affect urinary stone formation. For example, urine pH below 6.0 may help reduce the tendency for calcium phosphate stones and pH greater than 6.0 may reduce the tendency for uric acid stone formation. Source: [facility] Current Interpretive Data was last revised on 2017 Protein, ur ql Negative Negative [facility] Glucose, ur ql Negative Negative [facility] Ketones, ur Negative Negative [facility] Bilirubin, ur Negative Negative [facility] Blood, ur Negative Negative [facility] Urobilinogen, ur <2.0 <2.0 mg/dL [facility] Nitrite, ur Negative Negative [facility] Leukocyte esterase, ur Negative Negative [facility] UA reflex comment Reflex conditions for microscopic UA and culture not met. [facility] Urine 08/18/2024 10:3 0 PM CDT 08/18/2024 11:03 PM CDT Shailesh Wong MD LAB MICROBIOLOGY - GENERAL OR DERABLES Final Result [facility] [place] [address] * eGFR (08/18/2024 10:01 PM CDT) eGFR [...] ORDERABLES Keyona l Result Performing Organization Address City/[facility]/ZIP Co de Phone Number [facility] [place] [address] * Critical Result Callback Chemistry (08/18/2024 10:01 PM CDT) Pathologist [facility] Date Notified [id number] Time Notified 5 [facility] TestName Levy Cunningham [facility] Called/Read Back Ashlee Hammonds [facility] Credentials RN [facility] Called By JILL [facility] Blood 08/18/2024 10:0 1 PM CDT 08/18/2024 10:12 PM CDT us Joby Chaudhry MD LAB BLOOD ORDERABLES Final Result Performing Organization Address [facility] Co de Phone Number [facility] [place] [address] * Respiratory pathogen panel Nasopharyngeal (08/18/2024 10:01 PM CDT) [facility] Influenza A RNA Not Detected Not Detected Influenza B RNA Not Detected Not Detected [facility] RSV RNA Not Detected Not Detected [facility] COVID-19 RNA Not Detected Not Detected [facility] Coronavirus 229E RNA Not Detected Not Detected [facility] Coronavirus HKU1 RNA Not Detected Not Detected [facility] Coronavirus NL63 RNA Not Detected Not Detected [facility] Coronavirus OC43 RNA Not Detected Not Detected [facility] Adenovirus DNA Not Detected Not Detected [facility] Metapneumovirus RNA Not Detected Not Detected [facility] Rhinovirus/Enterov irus RNA Not Detected Not Detected [facility] Parainfluenza 1 RNA Not Detected Not Detected [facility] Parainfluenza 2 RNA Not Detected Not Detected [facility] Parainfluenza 3 RNA Not Detected Not Detected [facility] Parainfluenza 4 RNA Not Detected Not Detected [facility] B. pertussis DNA Not Detected Not Detected [facility] B. parapertussis DNA Not Detected Not Detected [facility] C. pneumoniae DNA Not Detected Not Detected [facility] M. pneumoniae DNA Not Detected Not Detected [facility] Nasopharyngeal 08/18/2024 10 :01 PM CDT 08/18/2024 10:19 PM CDT Narrative [facility] - 08/18/2024 11:15 PM CDT Is the Patient experiencing symptoms consistent with COVID?->No Surveillance testing for transplant patient?->No Interpretive Data The [employer] FilmArray Respiratory Panel (RP2.1) assay is a [...] assay has FDA clearance for testing of SENIOR ANDROID DEVELOPER swabs. The performance of additional specimen types has been assessed by the performing laboratory. The performance characteristics of this assay have been determined by [facility] Infectious Disease [facility]. Current interpretive data was last revised on 22. Shailesh Wong MD LAB MICROBIOLOGY - GENERAL OR DERABLES Final Result [facility] [place] [address] * (ABNORMAL) CBC without differential (08/18/2024 10:01 PM CDT) WBC 9.4 3.8 - 9.9 K/cumm Hgb 10.2(L) 11.9 - 15.5 g/dL [facility] Hct 29.7(L) 35.6 - 45.5 % [facility] Plt 183 150 - 400 K/cumm [facility] MPV 9.1 9.1 - 12.3 fL [facility] RBC 3.17(L) 3.90 - 5.20 M/cumm [facility] MCV 93.7 81.3 - 96.4 fL [facility] MCH 32.2 27.1 - 33.3 pg [facility] MCHC 34.3 32.3 - 35.7 g/dL [facility] RDW CV 14.3 11.1 - 14.9 % [facility] RDW SD 48.8(H) 35.7 - 48.1 fL [facility] NRBC abs 0.00 0.00 - 0.01 K/cumm [facility] Blood 08/18/2024 10:0 1 PM CDT 08/18/2024 10:12 PM CDT Mark Hernandez MD LAB BLOOD ORDERABLES Keyona l Result Performing Organization Address City[facility]/ZIP Co de Phone Number [facility] [place] [address] * (ABNORMAL) Osmolality, blood (08/18/2024 10:01 PM CDT) Pathologist [facility] Osmo 258(C) 275 - 300 mOsm/kg Blood 08/18/2024 10:0 1 PM CDT 08/18/2024 10:12 PM CDT Joby Chaudhry MD LAB BLOOD ORDERABLES Final Result Performing Organization Address [facility] Co de Phone Number [facility] [place] [address] * (ABNORMAL) Basic metabolic panel (08/18/2024 10:01 PM CDT) Sodium 127(L) 135 - 145 mmol/L Potassium, pl 3.9 3.3 - 4.9 mmol/L [facility] Chloride 91(L) 97 - 110 mmol/L [facility] CO2 27 22 - 32 mmol/L [facility] Anion gap 9 2 - 15 mmol/L [facility] BUN 10 6 - 25 mg/dL [facility] Creatinine 0.73 0.60 - 1.10 mg/dL [facility] Glucose 99 70 - 199 mg/dL [facility] Comment: Interpretive Data Fasting glucose >/= 126 [...] 2022. Calcium 9.1 8.5 - 10.3 mg/dL [facility] Blood 08/18/2024 10:0 1 PM CDT 08/18/2024 10:12 PM CDT us Mark Hernandez MD LAB BLOOD ORDERABLES Keyona casey Result [facility] [place] [address] * XR Foot Right 3 or More [...] CDT 08/18/2024 5:07 PM [address] [facility] - 08/23/2024 7:01 AM CDT Collection->Peripheral [...] performance characteristics have been verified by the [facility] Microbiology Laboratory. For questions about this culture, contact the Microbiology Laboratory at [phone]. Interpretive data was last revised on 24. Shailesh Wong MD LAB MICROBIOLOGY - GENERAL OR DERABLES Final Result [facility] [place] [address] * Blood culture Blood Arm, right (08/18/2024 3:46 PM CDT) Report Final Report: No growth Blood (Arm, right) 08/18/2024 3:46 PM CDT 08/18/2024 5:[address] [facility] - 08/23/2024 7:01 AM CDT Collection->Peripheral [...] performance characteristics have been verified by the [facility] Microbiology Laboratory. For questions about this culture, contact the Microbiology Laboratory at [phone]. Interpretive data was last revised on 24. Shailesh Wong MD LAB MICROBIOLOGY - GENERAL OR DERABLES Final Result Performing Organization Address City[facility]/ZIP Co de Phone Number [facility] [place] [address] * Flow Leukemia/Lymphoma CSF (08/18/2024 3:24 PM CDT) Mancuso Stain Test Completed Leukemia/Lymp mati Result See separate Surgical Pathology report. [facility] CSF 08/18/2024 3:24 PM CDT 08/18/2024 4:45 PM CDT Shailesh Wong MD LAB PATHOLOGY ORDERABLES Keyona l Result Performing Organization Address [facility]/ZIP Co de Phone Number [facility] [place] [address] * Surgical pathology (08/18/2024 3:23 PM CDT) Cerebrospinal Fluid (Cytology) 08/18/2024 3:23 PM CDT 08/18/2024 4:47 PM CDT Narrative 08/19/2024 1:02 PM CDT EPIC results best viewed via link to PDF [facility] Eleni Gardner [facility] [place] [address] Note to Patients: This report may contain [...] Gender: F : 1955 (Age: 69) Address: [address] [place] [id number] Hospital #: [id number] Taken:08/18/2024 Received:08/18/2024 Reported: 08/19/2024 Patient Type: [facility] Inpatient Service: Emergency Medicine Location: [facility] OR POD 3 Physician(s): Shailesh Wong [...] flow cytometry specimen was examined for internal plant quality manager purposes. Flow cytometry was performed using antibodies to the following cellular antigens: CD45, CD34, CD19, CD20, Niobrara, Lambda, CD10, CD5, CD200, CD38. Total antigens [...] Surgical Pathology and Flow Cytometry Departments at [facility] as part of an ongoing clinical quality analyst program and in compliance with federally [...] Surgical Pathology and Flow Cytometry Departments of [facility]. It has not been cleared or approved [...] Result: See scanned result in Medical Record. [facility] CSF 08/18/2024 3:08 PM CDT 08/21/2024 1:27 PM CDT Mark Hernandez MD LAB BLOOD ORDERABLES Keyona l Result [facility] [place] [address] * Cell count w/reflex diff, CSF (08/18/2024 [...] OR DERABLES Final Result Performing Organization Address [facility] Co de Phone Number [place] [address] * (ABNORMAL) Cell count w/reflex diff, CSF (08/18/2024 3:07 PM CDT) Tube Number, CSF Tube 1 Color, CSF Colorless Colorless [facility] Clarity, CSF Clear Clear [facility] Xanthochromia , CSF Absent Absent [facility] Nucleated cells, CSF 4 0 - 5 /cumm [facility] RBC, CSF 51(H) 0 - 0 /cumm [facility] CSF 08/18/2024 3:07 PM CDT 08/18/2024 3:47 PM CDT Shailesh Wong MD LAB BODY FLUIDS AND STOOLS OR DERABLES Final Result Performing Organization Address [facility]/ZIP Co de Phone Number [facility] [place] [address] * Flow Leukemia/Lymphoma CSF (08/18/2024 3:07 PM CDT) Pathologist [facility] Leukemia/Lymph elly Result See comment Comment:Credited, duplicate test. CSF 08/18/2024 3:07 PM CDT 08/19/2024 4:17 PM CDT Shailesh Wong MD LAB PATHOLOGY ORDERABLES Keyona l Result Performing Organization Address [facility] Co de Phone Number [facility] [place] [address] * Miscellaneous Test Sendout Chemistry (08/18/2024 3:07 PM CDT) Pathologist [facility] Test name Varicella-Zos ter Virus Antibody, IgM by MARLY, CSF Result 1 Specimen Type: CSF Result: See scanned result in Medical Record. [facility] CSF 08/18/2024 3:07 PM CDT 08/21/2024 1:26 PM CDT us Mark Hernandez MD LAB BLOOD ORDERABLES Keyona casey Result Performing Organization Address [facility] Co de Phone Number [place] [address] * Oligoclonal banding (08/18/2024 3:07 PM CDT) Pathologist [facility] Oligoclonal bands, CSF 1 bands [facility] Oligoclonal bands 1 bands [facility] Oligoclonal bands, interp 0 <2 bands [facility] Comment: The oligoclonal band assay detected no unique IgG bands in the CSF. This is a negative result. Test Performed by: [place] [address] Stone Hand: Dawit Avendano Ph.D.; CLIA# [id number] Blood/Cerebrospi nal fluid 08/18/2024 3:07 PM CDT 08/18/2024 4:15 PM CDT Shailesh Wong MD LAB BLOOD ORDERABLES Final Re sult Performing Organization Address [facility]/ZIP Co de Phone Number [facility] [place] [address] [facility] * (ABNORMAL) IgG index, CSF and blood (08/18/2024 3:07 PM CDT) Pathologist [facility] Immunoglobulin G 1760(H) 767 - 1590 mg/dL [facility] Albumin 3400(L) 3500 - 5000 mg/dL [facility] Comment: Test Performed by: [facility] [address] [place] [address] Stone Hand: Dawit Avendano Ph.D.; CLIA# [id number] Test Performed by: [facility] [address] [place] [address] Stone Hand: Dawit Avendano Ph.D.; CLIA# [id number] IgG, CSF 3.5 <=8.1 mg/dL [facility] Albumin, CSF 14.9 <=27.0 mg/dL [facility] CSF IgG/albumin ratio, CSF 0.23(H) <=0.21 [facility] IgG/Albumin Ratio, Serum 0.52(H) <=0.[address] [facility] IgG index, CSF 0.44 <=0.70 [facility] IgG synthesis rate, CSF 0.00 <=12 mg/24H [facility] Albumin quotient, CSF/Serum 4.38 <=[address] [facility] Blood/Cerebrospi nal fluid 08/18/2024 3:07 PM CDT 08/18/2024 4:15 PM CDT Shailesh Wong MD LAB BODY FLUIDS AND STOOLS OR DERABLES Final Result [facility] [place] [address] [facility] * Cryptococcal antigen, CSF CSF (08/18/2024 3:07 PM CDT) [facility] Cryptococcal Antigen Negative Negative Comment: The cryptococcal antigen test was performed using the IMMY CrAg Lateral Flow Assay. This assay is [...] OR DERABLES Final Result Performing Organization Address [facility] de Phone Number [facility] [place] [address] * Bacterial culture and gram stain, CSF CSF (08/18/2024 3:07 PM CDT) Pathologist [facility] Direct Specimen Exam Stain: Cytospin Gram stain shows: No polymorphonuclear leukocytes seen. No organisms seen. Report Final Report: No growth [facility] CSF 08/18/2024 3:07 PM CDT 08/18/2024 4:16 PM CDT Narrative [facility] - 08/23/2024 11:12 AM CDT Testing performed by [facility] Microbiology Laboratory ([phone]). Shailesh Wong MD LAB MICROBIOLOGY - GENERAL OR DERABLES Final Result Performing Organization Address [facility] de Phone Number [place] [address] * Protein, total, CSF (08/18/2024 3:07 PM CDT) Pathologist [facility] Protein, CSF 32 5 - 45 mg/dL Comment:Cells present. Resul ts may be falsely elevated. CSF 08/18/2024 3:07 PM CDT 08/18/2024 4:00 PM CDT Shailesh Wong MD LAB BODY FLUIDS AND STOOLS OR DERABLES Final Result Performing Organization Address [facility] Co de Phone Number [facility] [place] [address] * Glucose, CSF (08/18/2024 3:07 PM CDT) [...] FLUIDS AND STOOLS OR DERABLES Final Result [facility] [place] [address] * Complement, total (08/18/2024 3:07 PM CDT) [facility] Complement hemolytic 63 30 - 75 units/mL [facility] Comment: Test Performed by: [facility] [address] [place] [address] Stone Hand: Dawit Avendano Ph.D.; CLIA# [id number] Blood 08/18/2024 3:07 PM CDT 08/18/2024 4:16 PM CDT Shailesh Wong MD LAB BLOOD ORDERABLES Final Re sult [facility] [place] [address] [facility] * (ABNORMAL) C2 complement (08/18/2024 3:07 PM CDT) [facility] Complement C2, functional 62(H) 25 - 47 units/mL [facility] Comment: ADDITIONAL INFORMATION This test was developed and its performance characteristics determined by [facility] in a manner consistent with CLIA requirements. This test has not been cleared or approved by the U.S. Food and Drug Administration. Complement C2 See Footnote [facility] Comment: RESULT: Results are not consistent with homozygous deficiency. Test Performed by: [facility] [address] [place] [address] Stone Hand: Dawit Avendano Ph.D.; CLIA# [id number] Blood 08/18/2024 3:07 PM CDT 08/18/2024 4:15 PM CDT us Shailesh Wong MD LAB BLOOD ORDERABLES Final Re sult [facility] [place] [address] [facility] * T-SPOT.TB Blood (08/18/2024 12:57 PM CDT) [facility] T-SPOT.TB Negative SeeBel Comment: Normal Value: Negative A negative test [...] test. T-SPOT.TB Panel A Spot Count 0 [facility] T-SPOT.TB Panel B Spot Count 0 [facility] T-SPOT.TB Negative Control Passed [facility] T-SPOT.TB Positive Control Passed [facility] Comment: Test Performed at: [place] [facility] [employer] [address] [place] [id number] GLORIA WAGONER,PHD Blood 08/18/2024 12:5 7 PM CDT 08/18/2024 1:08 PM CDT Shailesh Wong MD LAB MICROBIOLOGY - GENERAL OR DERABLES Final Result Performing Organization Address City[facility]ZIP Co de Phone Number [facility] [place] [address] * (ABNORMAL) Immunoglobulin IgG subclasses (08/18/2024 12:57 PM CDT) Pathologist [facility] IgG 1721(H) 767 - 1590 mg/dL [place] IgG, fraction 1 987(H) 341 - 894 mg/dL [facility] IgG, fraction 2 457 171 - 632 mg/dL [facility] IgG, fraction 3 103.5 18.4 - 106.0 mg/dL [facility] IgG, fraction 4 84.0 2.4 - 121.0 mg/dL [facility] Comment: Test Performed by: [facility] [address] [place] [address] Stone Hand: Dawit Avendano Ph.D.; CLIA# [id number] Blood 08/18/2024 12:5 7 PM CDT 08/18/2024 4:15 PM CDT Shailesh Wong MD LAB BLOOD ORDERABLES Final Re sult Performing Organization Address City[facility]/ZIP Co de Phone Number [facility] [place] [address] [facility] * BRANDT ab eval w/reflex (08/18/2024 12:57 PM CDT) [facility] ab Negative Negative Comment: Interpretive Data Positive Screens will be reflexed to specific testing for Antibodies against the following antigens: Milady-1 Ab, REFLOW OPERATOR Ab, Scl-70 Ab, Kelley Ab, SS-A/Ro Ab, and SS- B/La Ab. Further testing for dsDNA, Centromere, or Ribosomal P antibodies is suggested in patient with a positive screen and negative specific antibodies. Current interpretive data was last revised on 2022. Blood 08/18/2024 12:5 7 PM CDT 08/18/2024 1:08 PM CDT Shailesh Wong MD LAB BLOOD ORDERABLES Final Re sult Performing Organization Address [facility] Co de Phone Number [facility] [place] [address] * (ABNORMAL) Immune competence (08/18/2024 12:57 PM CDT) [facility] CD3 pct 76 60 - 88 % CD3 Absolute 802 661 - 1,963 cells/mcL [facility] CD4 pct 61 31 - 64 % [facility] CD4 Absolute 627 365 - 1,294 cells/mcL [facility] CD8 pct 16 12 - 40 % [facility] CD8 Absolute 162(L) 187 - 781 cells/mcL [facility] CD19 pct 23 6 - 25 % [facility] CD19 Absolute 245 86 - 488 cells/mcL [facility] [id number] pct 1(L) 5 - 25 % [facility] [id number] Absolute <35(L) 76 - 467 cells/mcL [facility] Comment:Verified CD4/CD8 ratio 3.8 0.9 - 4.4 [facility] Blood 08/18/2024 12:5 7 PM CDT 08/18/2024 1:08 PM CDT Shailesh Wong MD LAB BLOOD ORDERABLES Final Re sult Performing Organization Address [facility] Co de Phone Number [facility] [place] [address] * Angiotensin converting enzyme (08/18/2024 12:57 PM CDT) MONICA 24 10 - 55 Units/L Blood 08/18/2024 12:5 7 PM CDT 08/18/2024 1:08 PM CDT Shailesh Wong MD LAB BLOOD ORDERABLES Final Re sult Performing Organization Address [facility] de Phone Number [facility] [place] [address] * (ABNORMAL) IgA (08/18/2024 12:57 PM CDT) Pathologist [facility] Immunoglobulin A 492(H) 70 - 400 mg/dL Blood 08/18/2024 12:5 7 PM CDT 08/18/2024 1:08 PM CDT Shailesh Wong MD LAB BLOOD ORDERABLES Final Re sult Performing Organization Address [facility] de Phone Number [facility] [place] [address] * IgM (08/18/2024 12:57 PM CDT) Pathologist [facility] Immunoglobulin M 41 40 - 230 mg/dL Blood 08/18/2024 12:5 7 PM CDT 08/18/2024 1:08 PM CDT Shailesh Wong MD LAB BLOOD ORDERABLES Final Re sult Performing Organization Address [facility] de Phone Number [facility] [place] [address] * Cytology (08/18/2024 12:35 PM CDT) Cerebrospinal Fluid (Cytology) 08/18/2024 12:35 PM CDT 08/18/2024 5:35 PM CDT Narrative 08/19/2024 5:20 PM CDT EPIC results best viewed via link to PDF [facility] Eleni Gardner [facility] [place] [address] Note to Patients: This report may contain [...] Gender: F : 1955 (Age: 69) Address: [address] [place], [place] [id number] Hospital #: [id number] Taken:08/18/2024 Received:08/18/2024 Reported: 08/19/2024 Patient Type: [facility] Inpatient Service: Neurology Location: [place] [address] Physician(s): Gauri Rodrigues M.D. Aaron John Lacy, MD FINAL DIAGNOSIS A. Cerebrospinal fluid: - Negative for malignancy hrk/08/19/2024 17:20 By this signature, I attest that the above diagnosis is based upon my personal examination of the slides(and/or other material indicated in the diagnosis). Abigail Gold M.D. Report Electronically Reviewed and Signed Out By Abigail Gold M.D. 08/19/2024 17:20:44 Vitor Pike MS, CT(ASCP)PA Gross Description A. Cerebrospinal [...] Surgical Pathology and Flow Cytometry Departments at [facility] as part of an ongoing clinical quality analyst program and in compliance with federally [...] Surgical Pathology and Flow Cytometry Departments of [facility]. It has not been cleared or approved by the U. S. Food and Drug Administration. Johnson Rico MD LAB CYTOLOGY ORDERABLES Final Result * C4 complement (08/18/2024 10:33 AM CDT) Complement C4 36.0 10.0 - 40.0 mg/dL Blood 08/18/2024 10:3 3 AM CDT 08/18/2024 10:48 AM CDT Shailesh Wong MD LAB BLOOD ORDERABLES Final Re sult Performing Organization Address City/[facility]/ZIP Co de Phone Number [facility] [place] [address] * Aldolase (08/18/2024 10:33 AM CDT) Aldolase 7.2 0.1 - 8.0 Units/L Blood 08/18/2024 10:3 3 AM CDT 08/18/2024 10:48 AM CDT Shailesh Wong MD LAB BLOOD ORDERABLES [place] [address] * C3 complement (08/18/2024 10:33 AM CDT) Complement C3 151.0 90.0 - 180.0 mg/dL Blood 08/18/2024 10:3 3 AM CDT 08/18/2024 10:48 AM CDT Shailesh Wong MD LAB BLOOD ORDERABLES Final Re sult Performing Organization Address [facility] [place] [address] * Creatine kinase (CK), total (08/18/2024 10:33 AM CDT) Pathologist [facility] CK 52 30 - 200 Units/L Blood 08/18/2024 10:3 3 AM CDT 08/18/2024 10:48 AM CDT Shailesh Wong MD LAB BLOOD ORDERABLES Final Re sult Performing Organization Address [facility] de Phone Number [facility] [place] [address] * Beta 2 transferrin, body fluid (08/18/2024 5:25 AM CDT) Pathologist [facility] Beta-2 transferrin, fld Negative [place] [facility] Comment: REFERENCE VALUE Negative, no beta-2 transferrin (spinal fluid) detected. ADDITIONAL INFORMATION This test was developed and its performance characteristics determined by [facility] in a manner consistent with CLIA requirements. This test has not been cleared or approved by the U.S. Food and Drug Administration. Test Performed by: [facility] [address] [place] [address] Stone Hand: Dawit Avendano Ph.D.; CLIA# [id number] Fluid 08/18/2024 5:25 AM CDT 08/18/2024 7:30 AM CDT Shailesh Wong MD LAB BODY FLUIDS AND STOOLS OR DERABLES Final Result [facility] [place] [address] [facility] * UT CRITICAL CARE ILL/INJURED PATIENT INIT 30-74 MIN [...] Treponemal IgG/IgM Blood (08/17/2024 8:34 PM CDT) [facility] Treponemal IgG/IgM Nonreactive Nonreactive Comment: Interpretive Data: If test is reported as EQUIVOCAL, a new sample should be drawn in two weeks for testing. Current interpretive data was last revised on 2018. Blood 08/17/2024 8:34 PM CDT 08/17/2024 8:55 PM CDT us Malika Mishra MD LAB MICROBIOLOGY - GENERAL O RDERABLES Final Result Performing Organization Address [facility] Co de Phone Number [facility] [place] [address] * (ABNORMAL) JEAN CLAUDE ab ql w/rflx to JEAN CLAUDE qn (08/17/2024 8:34 PM CDT) [facility] JEAN CLAUDE Positive 1:640 Comment: Interpretive Data [...] on 2020. JEAN CLAUDE, quant 1:640 titer [facility] JEAN CLAUDE, interp Speckled(A) [facility] Blood 08/17/2024 8:34 PM CDT 08/17/2024 8:55 PM CDT us Malika Mishra MD LAB BLOOD ORDERABLES Final R esult Performing Organization Address [facility] Co de Phone Number [facility] [place] [address] * PR3 - proteinase 3, Ab (08/17/2024 8:34 PM CDT) [facility] Proteinase 3 ab <0.2 <=0.9 Ab Index Comment: Interpretive Data Negative: <1 Ab Index Positive: > or = 1 Ab Index Current interpretive data was last revised on 2016. Blood 08/17/2024 8:34 PM CDT 08/17/2024 8:55 PM CDT us Malika Mishra MD LAB BLOOD ORDERABLES Final R esult Performing Organization Address [facility] de Phone Number [facility] [place] [address] * MPO - myeloperoxidase antibody (08/17/2024 8:34 PM CDT) Myeloperoxidase ab <0.2 <=0.9 Ab Index Comment: Interpretive Data Negative: <1 Ab Index Positive: > or = 1 Ab Index Current interpretive data was last revised on 2016. Blood 08/17/2024 8:34 PM CDT 08/17/2024 8:55 PM CDT us Malika Mishra MD LAB BLOOD ORDERABLES Final R esult Performing Organization Address [facility] de Phone Number [facility] [place] [address] * HIV 1/2 Antibody plus p24 Antigen Blood (08/17/2024 8:34 PM CDT) Pathologist [facility] HIV 1/2 ab + p24 ag Nonreactive [...] O RDERABLES Final Result Performing Organization Address [facility] Co de Phone Number [facility] [place] [address] * (ABNORMAL) Anti-Neutrophilic Cytoplasmic Antibody (ANCA) with Reflex to MPO and PR3 Abs (58:34 PM CDT) Pathologist [facility] ANCA Indetermi debora(A) Negative Comment:Indeterminate for P- ANCA - Results by antigen specific immunoassay (MPO & PR3) to follow. May indicate ulcerative colitis or Crohn's disease. Blood 08/17/2024 8:34 PM CDT 08/17/2024 8:55 PM CDT Malika Mishra MD LAB BLOOD ORDERABLES Final R esult Performing Organization Address [facility] Co de Phone Number [facility] [address] * Methylmalonic acid, serum (08/17/2024 8:34 PM CDT) Pathologist [facility] MMA 0.11 <=0.40 nmol/mL [place] [facility] Comment: ADDITIONAL INFORMATION This test was developed and its performance characteristics determined by [facility] in a manner consistent with CLIA requirements. This test has not been cleared or approved by the U.S. Food and Drug Administration. Test Performed by: [facility] [place] [address] Stone Hand: Dawit Avendano Ph.D.; CLIA# [id number] Blood 08/17/2024 8:34 PM CDT 08/17/2024 8:46 PM CDT Malika Mishra MD LAB BLOOD ORDERABLES Final R esult Performing Organization Address [facility] Co de Phone Number [facility] [place] [address] [facility] * RPR Blood (08/17/2024 8:34 PM CDT) Pathologist [facility] RPR Nonreactive Nonreactive Blood 08/17/2024 8:34 PM CDT 08/17/2024 8:55 PM CDT Malika Mishra MD LAB MICROBIOLOGY - GENERAL O RDERABLES Final Result Performing Organization Address City/[facility]/ZIP Co de Phone Number KARMA [facility] [place] [place] [address] * Vitamin B1 (08/17/2024 8:34 PM CDT) [facility] Thiamine (Vit B1) 125 70 - 180 nmol/L [place] [facility] Comment: ADDITIONAL INFORMATION This test was developed and its performance characteristics determined by [facility] in a manner consistent with CLIA requirements. This test has not been cleared or approved by the U.S. Food and Drug Administration. Test Performed by: [facility] [place] [place] [address] Stone Hand: Dawit Avendano Ph.D.; CLIA# [id number] Blood 08/17/2024 8:34 PM CDT 08/17/2024 8:46 PM CDT Malika Mishra MD LAB BLOOD ORDERABLES Final R esult Performing Organization Address [facility] Co de Phone Number KARMA [facility] [place] [address] [place] * Homocysteine (08/17/2024 8:34 PM CDT) [facility] Homocysteine 8.5 0.0 - 15.0 mcmol/L Blood 08/17/2024 8:34 PM CDT 08/17/2024 8:55 PM CDT us Malika Mishra MD LAB BLOOD ORDERABLES Final R esult Performing Organization Address [facility] Co de Phone Number [facility] [address] * Folate (08/17/2024 8:34 PM CDT) Folic acid >20.0 >=5.0 ng/mL Blood 08/17/2024 8:34 PM CDT 08/17/2024 8:55 PM CDT us Malika Mishra MD LAB BLOOD ORDERABLES Final R esult Performing Organization Address [facility] Co de Phone Number [facility] [address] * (ABNORMAL) Ferritin (08/17/2024 8:34 PM CDT) Ferritin 310(H) 13 - 150 ng/mL Blood 08/17/2024 8:34 PM CDT 08/17/2024 8:55 PM CDT us Mark Hernandez MD LAB BLOOD ORDERABLES Keyona l Result Performing Organization Address [facility] Co de Phone Number [facility] [place] [address] * Vitamin B12 (08/17/2024 8:34 PM CDT) Vitamin B12 657 230 - 1,250 pg/mL Blood 08/17/2024 8:34 PM CDT 08/17/2024 8:55 PM CDT us Malika Mishra MD LAB BLOOD ORDERABLES Final R esult Performing Organization Address City[facility]/ZIP Co de Phone Number [place] [address] * MRI Brain MRA Head MRA Neck [...] 3. Magnetic resonance angiography (MRA) of the mlegmq-mr-Zrukkp without and with contrast 4. Magnetic resonance [...] optic nerves. Magnetic resonance angiography of the csuamm-qb-Czywte was performed using a separate data acquisition with a non-contrast enbv-dr-nisiva technique and a post-contrast technique to produce axial thin-slice source images. These images were then used to generate maximum intensity projection (MIP) images. Magnetic resonance angiography of the neck was performed using a separate data acquisition with a non-contrast eonn-ey-vhindx technique and a post-contrast technique to produce [...] 3. Magnetic resonance angiography (MRA) of the vrnohj-tt-Mefsut without and with contrast 4. Magnetic resonance [...] optic nerves. Magnetic resonance angiography of the tpgoeb-wz-Uerjid was performed using a separate data acquisition with a non-contrast zgxx-mn-gejrno technique and a post-contrast technique to produce axial thin-slice source images. These images were then used to generate maximum intensity projection (MIP) images. Magnetic resonance angiography of the neck was performed using a separate data acquisition with a non-contrast wdph-db-nleklv technique and a post-contrast technique to produce [...] 3. Magnetic resonance angiography (MRA) of the zvsskb-pu-Xyzlgv without and with contrast 4. Magnetic resonance [...] optic nerves. Magnetic resonance angiography of the nmsgvw-af-Iqhcxy was performed using a separate data acquisition with a non-contrast ultr-fn-qjlrow technique and a post-contrast technique to produce axial thin-slice source images. These images were then used to generate maximum intensity projection (MIP) images. Magnetic resonance angiography of the neck was performed using a separate data acquisition with a non-contrast ymtr-ba-sbyame technique and a post-contrast technique to produce [...] 3. Magnetic resonance angiography (MRA) of the oeptrw-iy-Mqpdgp without and with contrast 4. Magnetic resonance [...] optic nerves. Magnetic resonance angiography of the hgifri-gp-Zafnsi was performed using a separate data acquisition with a non-contrast itoo-zm-rshfdk technique and a post-contrast technique to produce axial thin-slice source images. These images were then used to generate maximum intensity projection (MIP) images. Magnetic resonance angiography of the neck was performed using a separate data acquisition with a non-contrast xpgb-sh-agmqwi technique and a post-contrast technique to produce [...] it. Electronically signed by: Maureen Arenas M.D. Malika Mishra MD IM MRI PROCEDURES Final Res ult * Respiratory pathogen panel Nasopharyngeal (08/17/2024 2:02 PM CDT) Pathologist [facility] Influenza A RNA Not Detected Not Detected Influenza B RNA Not Detected Not Detected [facility] RSV RNA Not Detected Not Detected [facility] COVID-19 RNA Not Detected Not Detected [facility] Coronavirus 229E RNA Not Detected Not Detected [facility] Coronavirus HKU1 RNA Not Detected Not Detected [facility] Coronavirus NL63 RNA Not Detected Not Detected [facility] Coronavirus OC43 RNA Not Detected Not Detected [facility] Adenovirus DNA Not Detected Not Detected [facility] Metapneumovirus RNA Not Detected Not Detected [facility] Rhinovirus/Enterov irus RNA Not Detected Not Detected [facility] Parainfluenza 1 RNA Not Detected Not Detected [facility] Parainfluenza 2 RNA Not Detected Not Detected [facility] Parainfluenza 3 RNA Not Detected Not Detected [facility] Parainfluenza 4 RNA Not Detected Not Detected [facility] B. pertussis DNA Not Detected Not Detected [facility] B. parapertussis DNA Not Detected Not Detected [facility] C. pneumoniae DNA Not Detected Not Detected [facility] M. pneumoniae DNA Not Detected Not Detected [facility] Nasopharyngeal 08/17/2024 2: 02 PM CDT 08/17/2024 2:24 PM CDT Narrative [facility] - 08/17/2024 3:27 PM CDT Is the Patient experiencing symptoms consistent with COVID?->Yes Surveillance testing for transplant patient?->No Interpretive Data The [employer] FilmArray Respiratory Panel (RP2.1) assay is a [...] assay has FDA clearance for testing of SENIOR ANDROID DEVELOPER swabs. The performance of additional specimen types has been assessed by the performing laboratory. The performance characteristics of this assay have been determined by [facility] Molecular Infectious Disease [facility]. Current interpretive data was last revised on 22. us Malika Mishra MD LAB MICROBIOLOGY - GENERAL O RDERABLES Final Result [facility] [place] [address] * CTA Head Neck W WO Contrast [...] the CTA were generated on a dedicated workstation/cocktail server. Contrast information: 69 mL Optiray-350 IV COMPARISON: [...] narrowing or filling defects are identified. The wuaekj-ou-Rqiuvb is complete. The anterior and middle cerebral [...] the CTA were generated on a dedicated workstation/cocktail server. Contrast information: 69 mL Optiray-350 IV COMPARISON: [...] narrowing or filling defects are identified. The bzqtpw-ct-Bvhhla is complete. The anterior and middle cerebral [...] * POCT creatinine (08/17/2024 12:29 PM CDT) Pathologist [facility] Creatinine POC 0.8 0.6 - 1.1 mg/dL Blood 08/17/2024 12:2 9 PM CDT 08/17/2024 12:29 PM CDT Tommie Mccann MD LAB POCT ORDERABLES - DEVICE Final Result [facility] [place] [address] * eGFR (08/17/2024 12:18 PM CDT) eGFR [...] MD LAB BLOOD ORDERABLES Final R esult [facility] [place] [address] * (ABNORMAL) Differential, auto (08/17/2024 12:18 PM CDT) Neutrophil abs 5.0 1.5 - 6.5 K/cumm Imm gran abs 0.0 0.0 - 0.1 K/cumm [facility] Lymphocyte abs 1.1 0.8 - 3.3 K/cumm [facility] Monocyte abs 1.0(H) 0.2 - 0.8 K/cumm [facility] Eosinophil abs 0.1 0.0 - 0.5 K/cumm [facility] Basophil abs 0.1 0.0 - 0.1 K/cumm [facility] Neutrophil pct 68.9 % [facility] Comment: Interpretive Data Percent cell count reference ranges are not reported, since discordance with absolute values may lead to misinterpretation of CBC data. Current Interpretive Data was last revised on 2017. Imm gran pct 0.6 % [facility] Comment: Interpretive Data Percent cell count reference ranges are not reported, since discordance with absolute values may lead to misinterpretation of CBC data. Current Interpretive Data was last revised on 2017. Lymphocyte pct 15.4 % [facility] Comment: Interpretive Data Percent cell count reference ranges are not reported, since discordance with absolute values may lead to misinterpretation of CBC data. Current Interpretive Data was last revised on 2017. Monocyte pct 13.3 % [facility] Comment: Interpretive Data Percent cell count reference ranges are not reported, since discordance with absolute values may lead to misinterpretation of CBC data. Current Interpretive Data was last revised on 2017. Eosinophil pct 1.1 % [facility] Comment: Interpretive Data Percent cell count reference ranges are not reported, since discordance with absolute values may lead to misinterpretation of CBC data. Current Interpretive Data was last revised on 2017. Basophil pct 0.7 % [facility] Comment: Interpretive Data Percent cell count reference ranges are not reported, since discordance with absolute values may lead to misinterpretation of CBC data. Current Interpretive Data was last revised on 2017. Blood 08/17/2024 12:1 8 PM CDT 08/17/2024 12:35 PM CDT us Malika Mishra MD LAB BLOOD ORDERABLES Final R esult [facility] [place] [address] * (ABNORMAL) CBC with auto differential (08/17/2024 12:18 PM CDT) WBC 7.2 3.8 - 9.9 K/cumm Hgb 11.2(L) 11.9 - 15.5 g/dL [facility] Hct 33.2(L) 35.6 - 45.5 % [facility] Plt 187 150 - 400 K/cumm [facility] MPV 10.0 9.1 - 12.3 fL [facility] RBC 3.45(L) 3.90 - 5.20 M/cumm [facility] MCV 96.2 81.3 - 96.4 fL [facility] MCH 32.5 27.1 - 33.3 pg [facility] MCHC 33.7 32.3 - 35.7 g/dL [facility] RDW CV 14.8 11.1 - 14.9 % [facility] RDW SD 51.9(H) 35.7 - 48.1 fL [facility] NRBC abs 0.00 0.00 - 0.01 K/cumm [facility] Blood 08/17/2024 12:1 8 PM CDT 08/17/2024 12:35 PM CDT Malika Mishra MD LAB BLOOD ORDERABLES Final R esult Performing Organization Address [facility] Co de Phone Number [facility] [place] [address] * aPTT (08/17/2024 12:18 PM CDT) aPTT 32 28 - 38 sec Comment: Interpretive Data Heparin therapeutic range: 66.0 - 100.0 seconds. Range based on correlation with therapeutic heparin activity range of 0.3 - 0.7 Units/mL. Current interpretive data was last revised on 2023. Blood 08/17/2024 12:1 8 PM CDT 08/17/2024 12:44 PM CDT Malika Mishra MD LAB BLOOD ORDERABLES Final R esult Performing Organization Address [facility] Co de Phone Number [facility] [place] [address] * (ABNORMAL) Erythrocyte sedimentation rate (08/17/2024 12:18 PM CDT) Pathologist [facility] Erythrocyte sedimentation rate 61(H) 1 - 30 mm/hr Blood 08/17/2024 12:1 8 PM CDT 08/17/2024 12:35 PM CDT Malika Mishra MD LAB BLOOD ORDERABLES Final R esult Performing Organization Address [facility] Co de Phone Number [facility] [address] * Protime-INR (08/17/2024 12:18 PM CDT) PT 13.0 9.7 - 13.0 sec INR 1.20 0.90 - 1.20 [facility] Comment: Interpretive data Oral anticoagulant therapeutic ranges: Venous thromboembolism prophylaxis or treatment: 2.0-3.0 CARDIOLOGY Standard range: 2.0-3.0 High-intensity range: 2.5-3.5 Refer to indication-specific guidelines for appropriate target ranges for prosthetic heart valve replacement. Current interpretive data was last revised on 2019. Blood 08/17/2024 12:1 8 PM CDT 08/17/2024 12:44 PM CDT Malika Mishra MD LAB BLOOD ORDERABLES Final R esult Performing Organization Address [facility] Co de Phone Number [facility] [place] [address] * (ABNORMAL) CRP (acute phase) (08/17/2024 12:18 PM CDT) [facility] CRP 124.6(H) <=10.0 mg/L Blood 08/17/2024 12:1 8 PM CDT 08/17/2024 12:35 PM CDT Malika Mishra MD LAB BLOOD ORDERABLES Final R esult Performing Organization Address [facility] de Phone Number [facility] [place] [address] * (ABNORMAL) Comprehensive metabolic panel (08/17/2024 12:18 PM CDT) Pathologist [facility] Sodium 134(L) 135 - 145 mmol/L Potassium, pl 3.9 3.3 - 4.9 mmol/L [facility] Comment:Hemolyzed; Potassium value may be falsely elevated by as much as 0.3-0.5 mmol/L. Suggest redraw and reanalysis. Chloride 99 97 - 110 mmol/L [facility] CO2 26 22 - 32 mmol/L [facility] Anion gap 9 2 - 15 mmol/L [facility] BUN 7 6 - 25 mg/dL [facility] Creatinine 0.76 0.60 - 1.10 mg/dL [facility] Glucose 95 70 - 199 mg/dL [facility] Comment: Interpretive Data Fasting glucose >/= 126 [...] 2022. Calcium 9.3 8.5 - 10.3 mg/dL [facility] Bilirubin, total 0.4 0.1 - 1.2 mg/dL [facility] Protein, pl 8.2 6.5 - 8.5 g/dL [facility] Albumin 3.8 3.5 - 5.0 g/dL [facility] Alk phos 100 40 - 130 Units/L [facility] ALT 19 7 - 45 Units/L [facility] AST 31 10 - 45 Units/L [facility] Comment:Hemolyzed; result ma y be falsely elevated Blood 08/17/2024 12:1 8 PM CDT 08/17/2024 12:35 PM CDT us Malika Mishra MD LAB BLOOD ORDERABLES Final R esult [facility] [place] [address] * Thiopurine metabolites (07/10/2024 9:42 AM FLOW FLOOR ATTENDANT) 6-TG, bld 281 235 - 450 [place] [facility] Comment:Increased possibilit y of response; optimal dosing. 6-MMP, bld <406 < or = 57[address] [facility] Comment: Result not quantifiable; below the limit of quantitation. Decreased risk of hepatotoxicity. ADDITIONAL INFORMATION Testing performed by Liquid Chromatography-Tandem Mass Spectrometry (LC-MS/MS) This test was developed and its performance characteristics determined by [facility] in a manner consistent with CLIA requirements. This test has not been cleared or approved by the U.S. Food and Drug Administration. Test Performed by: [facility] [address] [place] [address] Stone Hand: Dawit Avendano Ph.D.; CLIA# [id number] Blood 07/10/2024 9:42 AM FLOW FLOOR ATTENDANT 07/10/2024 12:32 PM FLOW FLOOR ATTENDANT Hardy Dash MD LAB BL OOD ORDERABLES Final Result [facility] [place] [address] [place] * (ABNORMAL) CBC with auto differential (07/10/2024 9:42 AM FLOW FLOOR ATTENDANT) White Blood Count 3.7 3.6 - 11.2 [...] [facility] Blood 07/10/2024 9:42 AM FLOW FLOOR ATTENDANT 07/10/2024 10:51 AM FLOW FLOOR ATTENDANT Hardy Dash MD LAB BL OOD ORDERABLES Final Result [facility] * (ABNORMAL) Erythrocyte sedimentation rate (07/10/2024 9:42 AM FLOW FLOOR ATTENDANT) Erythrocyte sedimentation rate 42(H) 1 - 30 mm/hr Blood 07/10/2024 9:42 AM FLOW FLOOR ATTENDANT 07/10/2024 12:09 PM FLOW FLOOR ATTENDANT Hardy Dash MD LAB BL OOD ORDERABLES Final Result [facility] [place] [address] * (ABNORMAL) CRP (acute phase) (07/10/2024 9:42 AM FLOW FLOOR ATTENDANT) C-Reactive Protein, Acute 6.1(H) <5.0 mg/L [facility] Blood 07/10/2024 9:42 AM FLOW FLOOR ATTENDANT 07/10/2024 10:51 AM FLOW FLOOR ATTENDANT Hardy Dash MD LAB BL OOD ORDERABLES Final Result [facility] * (ABNORMAL) Comprehensive metabolic panel (07/10/2024 9:42 AM FLOW FLOOR ATTENDANT) Total Protein 8.1 6.1 - 8.4 g/dL [...] [facility] Blood 07/10/2024 9:42 AM FLOW FLOOR ATTENDANT 07/10/2024 10:51 AM FLOW FLOOR ATTENDANT Hardy Dash MD LAB BL OOD ORDERABLES Final Result [facility] * MRI MRA Vessel Wall Imaging W WO Contrast (07/08/2024 12:12 PM FLOW FLOOR ATTENDANT) Anatomical Region Laterality Modality Head and Neck N/A Magnetic Resonan ce 07/08/2024 4:14 PM FLOW FLOOR ATTENDANT Impressions 07/08/2024 5:13 PM FLOW FLOOR ATTENDANT 1. Vessel wall imaging demonstrates enhancement in [...] Maureen Arenas M.D. Narrative 07/08/2024 5:13 PM FLOW FLOOR ATTENDANT EXAMINATION: 1. Magnetic resonance imaging (MRI) of the brain and brainstem without and with contrast 2. Magnetic resonance angiography (MRA) of the kpwvsh-fm-Zbauec without and with contrast. TWIST sequences of [...] protocol. 2. Magnetic resonance angiography of the jbtqmt-yi-Ykzyoj was performed using a separate data acquisition with a non-contrast ovfq-vt-kksvri technique and a post-contrast technique to produce [...] no additional areas of vascular narrowing. The gsvznv-kx-Mbeluq is complete. Bilateral posterior cerebral artery origins. [...] 2. Magnetic resonance angiography (MRA) of the lbfoox-va-Drunmc without and with contrast. TWIST sequences of [...] protocol. 2. Magnetic resonance angiography of the rtniiw-cx-Rdvexn was performed using a separate data acquisition with a non-contrast bypz-pj-xnqipr technique and a post-contrast technique to produce [...] no additional areas of vascular narrowing. The ptemis-zm-Ceftnr is complete. Bilateral posterior cerebral artery origins. [...] signed by: Maureen Arenas M.D. us Sanya Farmer MD IMG MRI PROCEDURES Final Re sult * Hepatitis panel, acute Blood (02/05/2024 11:38 AM CDT) Hep A IgM Nonreactive Nonreactive Hep B core IgM Nonreactive Nonreactive [facility] Hep C Ab Nonreactive Nonreactive [facility] Comment:Antibodies to HCV no t detected. Does NOT exclude the possibility of recent exposure to HCV. Current interpretive data was last revised on 22 HepBsAg Nonreactive Nonreactive [facility] Blood 02/05/2024 11:3 8 AM CDT 02/05/2024 12:20 PM CDT us Yolette Palmer MD PhD LAB MICROBIOLOGY - GENERAL ORDERABLES Final Result [facility] [place] [address] from Last 3 Months or Most Recently Relevant to Health Maintenance Insurance AET MEDICARE GOLD T MEDICARE [facility] AETNA MEDICARE GOLD Advance Directives For more information, please contact: [phone] * Full Code (Latest Code Status on File) Date Activated Date Inactivated Comments 08/17/2024 11:21 PM 08/23/2024 9:39 PM * Full Code Date Activated Date Inactivated Comments 08/30/2022 3:05 PM 09/18/2022 7:53 PM * Full Code Date Activated Date Inactivated Comments 06/06/2022 6:17 PM 06/07/2022 6:51 PM * Full Code Date Activated Date Inactivated Comments 06/06/2022 5:47 PM 06/06/2022 6:17 PM Care Teams Lean Facilitator Relationship Specialty Start Date End Date Alison Perez MD [address] [facility] [place] [address] PCP - General Internal Medicine 08/31/22 Zenon Alexander MD PhD [address] [place] [address] Consulting Physician Neurology 09/18/22 Terrence Avalos MD [address] [place] [address] Consulting Physician Infectious Diseases 09/18/22 Aurora Howell, MATTHEW [address] [facility] [address] [facility] [address] [place] [address] Speech Language Pathologist Speech Therapy 08/01/24
--- OUTSIDE RECORDS SUMMARY | 2024-08-29 15:33 | XMS_ITS | Patient Health Record ---
Author Organization [facility] Address [address] [facility] [address] [place] [address] Care Team Providers Care Relationship Associate Name Role Phone Brittney Benedict Unavailable [phone] Reason For Referral No Information Medications Medication [...] Date [employer] - Choice/ OA [address] [place] [address] [id number] Toña Yo Self - patient is the insured Medical (General) History Surgical History Surgery Date(Month/Year) Myomectomy; 2021-11-17 Knee surgery; 2021-11-17 Ovarian cyst removal; 2021-11-17 thumb surgery; 2021-11-17 Tubal ligation; 2021-11-17 Radioactive Iodine Thyroid; 2021-11-17
--- OUTSIDE RECORDS SUMMARY | 2024-08-29 15:34 | XMS_ITS | Encounter Summary ---
Author Organization [facility] Address [address] [facility] [address] [place] [address] Phone Care Team Providers Care Mathematics Department Chair Name Role Phone Alison Perez MD Primary Care Provider [phone]- [phone] Zenon Alexander MD PhD Unavailable [phone] Terrence Avalos MD Unavailable HowellAurora moreno SNOWBOARD DESIGNER Unavailable Encounter Details Date Type Department Care Team (Late st Contact Info) Description 08/21/2024 Ophth Exam [facility] Ophthalmology [address] [place] [address] 1st [place] [address] Mireille Pineda MD [address] [address] Social History Tobacco Use Types [...] often do you attend chur ch or evangelical services? More than 4 times per year 08/31/2022 Do you belong to any clubs o r organizations such as methodist groups, unions, fraJaguar Animal Health or athletic groups, or school groups? 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 Gender Identity Female 02/08/2019 7:49 PM CDT Sexual Orientation Straight 02/08/2019 7: 49 PM CDT documented as of this encounter Plan of Treatment Not on file documented as of this encounter Visit Diagnoses Not on filedocumented in this encounter Eye Exam Visual Acuity (Snellen - Linear) Right eye Left eye Near cc 20/200-1phni 20/20-3 Pt does better with consult readers than with own glasses Tonometry (Tonopen, 9:14 AM) Right eye Left eye Pressure 16 17 Pupils Dark Light Shape React APD Right eye 2 2 Round MR possible t race Left eye 1.5 1.5 Round MR None Visual Schuster Right eye Left eye Full Restrictions Partial outer superior nasal, in ferior nasal deficiencies Extraocular Movement Right eye Left eye Full Full Dilation Both eyes: 1.0% Mydriacyl, 2 .5% Phenylephrine @ 9:13 AM Color Right eye Left eye Ishihara no CP 03/15 External Exam Right eye Left eye External Normal Normal Slit Lamp Exam Right eye Left eye Lids/Lashes significantly improved edema sig nificantly improved edema Conjunctiva/Sclera trace injection, inf erior mild chemosis trace injection, inferior mild chemosis Cornea SPEE Clear Anterior Chamber Deep and quiet Deep and quiet Iris Round and reactive Round and lu ctive Lens PCIOL NS Anterior Vitreous syneresis syneresis Fundus Exam Right eye Left eye Disc pallorous trace disc edema , with prominent superior elevation and surrounding hemorrhages and drusen C/D Ratio 0.3 Macula GA mutliple small I RH + DBH Vessels attenuated hemes in multipl e layers concentrated along superior arcade suggestive of BRVO Periphery Normal mutliple small I RH + DBH Care Teams Mathematics Department Chair Relationship Specialty Start Date End Date Alison Perez MD [address] [facility] [address] PCP - General Internal Medicine 08/31/22 Zenon Alexander MD PhD [address] [place] [address] Consulting Physician Neurology 09/18/22 Terrence Avalos MD [address] [place] [address] Consulting Physician Infectious Diseases 09/18/22 Aurora Howell, SNOWBOARD DESIGNER [address] [facility] [address] [place] [address] Speech Language Pathologist Speech Therapy 08/01/24 documented as of this encounter
--- OUTSIDE RECORDS SUMMARY | 2024-08-29 15:34 | XMS_ITS | Clinical Summary ---
Author Organization [facility] Address [address] [place] [address] Phone Care Team Providers Care Rn Wound Name Role Phone Provider, Unknown Primary Care [...] C AETNA MEDICARE C AETNA Care Teams Rn Wound Relationship Specialty Start Date End Date Provider, Unknown UNKNOWN PCP - General 02/11/16
--- OUTSIDE RECORDS SUMMARY | 2024-08-29 15:34 | XMS_ITS | Encounter Summary ---
Author Organization [facility] Address [address] [facility] [address] [place] [address] Phone Care Team Providers Care Electrical Tests Supervisor Name Role Phone Alison Perez MD Primary Care Provider [phone]- [phone] Zenon Alexander MD PhD Unavailable Terrence Avalos MD Unavailable [phone] HowellAurora moreno FLIGHT OPERATIONS MANAGER Unavailable Encounter Details Date Type Department Care Team (Late st Contact Info) Description 08/20/2024 Ophth Exam [facility] Ophthalmology [address] [place] [address] 1st [place] [address] Mireille Pineda MD [address] [address] Social History Tobacco Use Types [...] often do you attend chur ch or taoism services? More than 4 times per year 08/31/2022 Do you belong to any clubs o r organizations such as mu-ism groups, unions, fraImageTag or athletic groups, or school groups? 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 Gender Identity Female 02/08/2019 7:49 PM CDT Sexual Orientation Straight 02/08/2019 7: 49 PM CDT documented as of this encounter Plan of Treatment Not on file documented as of this encounter Visit Diagnoses Not on filedocumented in this encounter Eye Exam Visual Acuity (Snellen - Linear) Right eye Left eye Near sc 20/200phni 20/30ph20/20 Tonometry (Tonopen, 10:40 AM) Right eye Left eye Pressure 14 15 Pupils Dark Light Shape React APD Right eye 2 2 Round MR Trace Left eye 1.5 1.5 Round MR None Visual Schuster Right eye Left eye Full Restrictions Partial outer superior nasal, in ferior nasal deficiencies Extraocular Movement Right eye Left eye Full Full Color Right eye Left eye Ishihara no CP 04/15 External Exam Right eye Left eye External Normal Normal Slit Lamp Exam Right eye Left eye Lids/Lashes significantly improved edema sig nificantly improved edema Conjunctiva/Sclera 1+ injection trace injecti on, inferior mild chemosis Cornea SPEE Clear Anterior Chamber Deep and quiet Deep and quiet Iris Round and reactive Round and lu ctive Lens PCIOL NS Anterior Vitreous syneresis syneresis Care Teams Electrical Tests Supervisor Relationship Specialty Start Date End Date Alison Perez MD [address] [email or web address] [place] [address] PCP - General Internal Medicine 08/31/22 Zenon Alexander MD PhD [address] [place] [address] Consulting Physician Neurology 09/18/22 Terrence Avalos MD [address] [place] [address] Consulting Physician Infectious Diseases 09/18/22 Aurora Howell SLP [address] [place] [address] Speech Language Pathologist Speech Therapy 08/01/24 documented as of this encounter
--- OUTSIDE RECORDS SUMMARY | 2024-08-29 15:34 | XMS_ITS | Encounter Summary ---
Author Organization [facility] Address [address] [facility] [address] [place] [address] Phone Care Team Providers Care Knife Edger Name Role Phone Alison Perez MD Primary Care Provider [phone]- [phone] Zenon Alexander MD PhD Unavailable Terrence Avalos MD Unavailable HowellAurora moreno CONTINUOUS MINING MACHINE OPERATOR Unavailable Encounter Details Date Type Department Care Team (Late st Contact Info) Description 08/22/2024 Ophth Exam [facility] Ophthalmology [address] [place] [address] 1st [place] [address] Mireille Pineda MD [address] [address] Social History Tobacco Use Types [...] often do you attend chur ch or jainism services? More than 4 times per year 08/31/2022 Do you belong to any clubs o r organizations such as yazidism groups, unions, fraLEAPIN Digital Keys or athletic groups, or school groups? 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 Gender Identity Female 02/08/2019 7:49 PM CDT Sexual Orientation Straight 02/08/2019 7: 49 PM CDT documented as of this encounter Plan of Treatment Not on file documented as of this encounter Visit Diagnoses Not on filedocumented in this encounter Eye Exam Visual Acuity (Snellen - Linear) Right eye Left eye Near cc 20/200-1phni 20/20-1 Tonometry (Tonopen, 9:52 AM) Right eye Left eye Pressure 16 18 Pupils Dark Light Shape React APD Right eye 2 2 Round MR + Left eye 1.5 1.5 Round MR None Visual Schuster Right eye Left eye Full Full Extraocular Movement Right eye Left eye Full Full Dilation Both eyes: 1.0% Mydriacyl, 2 .5% Phenylephrine @ 10:01 AM Color Right eye Left eye Ishihara no CP 11.512 External Exam Right eye Left eye External Normal Normal Slit Lamp Exam Right eye Left eye Lids/Lashes significantly improved edema sig nificantly improved edema Conjunctiva/Sclera trace injection, tra ce inferior chemosis trace injection, trace inferior chemosis Cornea SPEE Clear Anterior Chamber Deep and quiet Deep and quiet Iris Round and reactive Round and lu ctive Lens PCIOL NS Anterior Vitreous syneresis syneresis Fundus Exam Right eye Left eye Disc pallorous Heme overlying v s elevation/disc edema superiorly and surrounding hemorrhages and drusen C/D Ratio 0.3 Macula GA, scattered intraretinal heme mutliple small IRH + DBH Vessels attenuated hemes in multipl e layers concentrated along superior arcade suggestive of BRVO Periphery Normal mutliple small I RH + DBH Care Teams Knife Edger Relationship Specialty Start Date End Date Alison Perez MD [address] [facility] [place] [id number] PCP - General Internal Medicine 08/31/22 Zenon Alexander MD PhD [address] [place] [address] Consulting Physician Neurology 09/18/22 Terrence Avalos MD [address] [place] [address] Consulting Physician Infectious Diseases 09/18/22 Aurora Howell SLP [address] [place] [address] Speech Language Pathologist Speech Therapy 08/01/24 documented as of this encounter
--- OUTSIDE RECORDS SUMMARY | 2024-08-29 15:34 | XMS_ITS | Encounter Summary ---
Author Organization [facility] Address [address] [facility] [address] [place] [address] Phone Care Team Providers Care Qual Research Manager Name Role Phone Alison Perez MD Primary Care Provider [phone]- [phone] Zenon Alexander MD PhD Unavailable Terrence Avalos MD Unavailable HowellAurora moreno FURNACE TAPPER Unavailable Encounter Details Date Type Department Care Team (Late st Contact Info) Description 08/19/2024 Ophth Exam [facility] Ophthalmology [address] [place] [address] 1st [place] [address] Mirielle Pineda MD [address] [address] Social History Tobacco Use Types [...] often do you attend chur ch or sabianist services? More than 4 times per year 08/31/2022 Do you belong to any clubs o r organizations such as christianity groups, unions, fraAteneo Digital or athletic groups, or school groups? 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 Gender Identity Female 02/08/2019 7:49 PM CDT Sexual Orientation Straight 02/08/2019 7: 49 PM CDT documented as of this encounter Plan of Treatment Not on file documented as of this encounter Visit Diagnoses Not on filedocumented in this encounter Eye Exam Visual Acuity (Snellen - Linear) Right eye Left eye Near sc 20/200phni 20/25-2phni Tonometry (Applanation, 10:00 AM) Right eye Left eye Pressure 17 16 Pupils Dark Light Shape React APD Right eye 3.5 3 Round MR + Left eye 3.5 2 Round Brisk None Visual Schuster Right eye Left eye Full Restrictions Total superior nasal deficiency; Partial outer inferior nasal deficiency Extraocular Movement Right eye Left eye Full Full Color Right eye Left eye Ishihara color plate only 01/14 External Exam Right eye Left eye External Normal Normal Slit Lamp Exam Right eye Left eye Lids/Lashes mild edema/blepharitis mild regina a/blepharitis Conjunctiva/Sclera 1+ injection trace injecti on, inferior mild chemosis Cornea SPEE Clear Anterior Chamber Deep and quiet Deep and quiet Iris Round and reactive Round and lu ctive Lens PCIOL NS Anterior Vitreous syneresis syneresis Manifest Refraction Auto Care Teams Qual Research Manager Relationship Specialty Start Date End Date Alison Perez MD [address] [employer] [place] [address] PCP - General Internal Medicine 08/31/22 Zenon Alexander MD PhD [address] [place] [address] Consulting Physician Neurology 09/18/22 Terrence Avalos MD [address] [place] [address] Consulting Physician Infectious Diseases 09/18/22 Aurora Howell SLP [address] [place] [address] Speech Language Pathologist Speech Therapy 08/01/24 documented as of this encounter
== END 2024-08-29 15:30 | disposition home or self-care (01) ==
LOC: ANHIMG 15:30
PROVIDERS: PCP Internal Medicine; Visit Provider Internal Medicine
DX: R60.0 Localized edema (principal)
CPT/HCPCS: 93971

== ENCOUNTER 2024-10-06 07:29 | Outpatient (CLI) | payer MEDICARE, SELFPAY ==
--- NOTE | ~2024-10-06 | CT_ITS ---
CT of the Abdomen and Pelvis: Indication: Pancreatic abnormality Technique: 2.5 mm axial scans were obtained through the abdomen and pelvis prior to and following in travenous administration of 100 cc of Omnipaque 350. Dose reduction technique was used on this scan b y utilizing automated exposure control and iterative reconstruction technique. The dose-length produc t (DLP) was 623.90 mGy-cm. Findings: Scans through the lung bases are unremarkable. Multiple hepatic cysts are present. The spleen, pancreas, gallbladder, adrenals and kidneys are withi n normal limits. There are atherosclerotic calcifications of the aorta. No lymphadenopathy. No bowel obstruction or bowel wall thickening. There is no evidence to suggest acute appendicitis. Images through the pelvis were performed. Urinary bladder unremarkable. No adnexal mass evident. No a scites. Chronic moderate compression fracture of L1 present. Chronic mild compression fracture of L4 present. Impression: No pancreatic abnormality seen. Compression fractures of L1 and L4, as detailed above. Multiple hepatic cysts. Reviewed, dictated and finalized at location . Impression: No pancreatic abnormality seen. Compression fractures of L1 and L4, as detailed above. Multiple hepatic cysts.
--- OUTSIDE RECORDS SUMMARY | 2024-10-06 07:41 | XMS_ITS | Clinical Summary ---
Author Organization [facility] Address [address] [place] [address] Care Team Providers Care Foundation Drill Operator Helper Name Role Phone Unavailable Primary Care [...] 1 - Tdap) 1973 Mammogram Screening 1994 Pneumococcal Vaccine: 50+ Ye ars (1 of 1 - PCV) 2004 Zoster Vaccines (1 of 2) 2004 Dexa Scan (General) 2019 COVID-19 Vaccine ( - 2023-2 5 season) 2024 RSV Immunization or 60+ Years (1 [...]
--- OUTSIDE RECORDS SUMMARY | 2024-10-06 07:41 | XMS_ITS | Encounter Summary ---
Author Organization [facility] Address [address] [place] [address] Care Team Providers Care Bus Matron Name Role Phone Alison Perez MD Primary Care Provider [phone]- [phone] Zenon Alexander MD PhD Unavailable [phone] Terrence Avalos MD Unavailable [phone] HowellAurora moreno FASHION EDITOR Unavailable Encounter Details Date Type Department Care Team (Late st Contact Info) Description 09/10/2024 Results Follow-Up [facility] [place] [address] [place] [address] Marlen Severino PA [address] [place] [address] [address] [place], [place] [id number] Social History Tobacco Use Types Packs/Day Years [...] How often do you attend chur or mu-ism services? More than 4 times per year 08/31/2022 Do you belong to any clubs o r organizations such as tenriism groups, unions, fraternal or athletic groups, or [...] on file Legal Sex Female 11:45 AM PUTTIER Gender Identity Female 02/08/2019 7:49 PM CDT Sexual Orientation Straight 02/08/2019 7: 49 PM CDT documented as of this encounter Miscellaneous Notes * Result Encounter Note - Belkys Crowley LPN - 09/10/2024 12:37 PM CDT Notified pt of their results and follow up instructions. Pt verbalized understanding. * Result Encounter Note - Marlen Severino PA - 09/10/2024 12:36 PM CDT Please inform patient of negative xray. No fracture or bony involvement. documented in this encounter Plan of Treatment Not on file documented as of this encounter Visit Diagnoses Not on filedocumented in this encounter Care Teams Bus Matron Relationship Specialty Start Date End Date Alison Perez MD [address] [place] [address] PCP - General Internal Medicine 08/31/22 Zenon Alexander MD PhD [address] [place] [address] Consulting Physician Neurology 09/18/22 Terrence Avalos MD [address] [place] [address] Consulting Physician Infectious Diseases 09/18/22 Aurora Howell SLP [address] [place] [address] Speech Language Pathologist Speech Therapy 08/01/24 documented as of this encounter
--- OUTSIDE RECORDS SUMMARY | 2024-10-06 07:42 | XMS_ITS | Encounter Summary ---
Author Organization [facility] Address [address] [facility] [address] [place] [address] Phone Care Team Providers Care Employee Development Manager Name Role Phone Alison Perez MD Primary Care Provider [phone]- [phone] Zenon Alexander MD PhD Unavailable [phone] Terrence Avalos MD Unavailable [phone] HowellAurora moreno CLEANING MATRON Unavailable Encounter Details Date Type Department Care Team (Late st Contact Info) Description 07/29/2024 Telephone [facility] Neurology [address] [place] [address] [address] [place] [address] Sanya Farmer MD [address] [place] [address] Social History Tobacco Use Types [...] How often do you attend chur or hoahaoism services? More than 4 times per year 08/31/2022 Do you belong to any clubs o r organizations such as faith groups, unions, fraternal or athletic groups, or [...] on file Legal Sex Female 11:45 AM INDEPENDENT INSURANCE ADJUSTER Gender Identity Female 02/08/2019 7:49 PM CDT [...] documented as of this encounter Care Teams Employee Development Manager Relationship Specialty Start Date End Date Alison Perez MD [address] [employer] [place] [address] PCP - General Internal Medicine 08/31/22 Zenon Alexander MD PhD [address] [place] [address] Consulting Physician Neurology 09/18/22 Terrence Avalos MD [address] [place] [address] Consulting Physician Infectious Diseases 09/18/22 Aurora Howell SLP [address] [place] [address] Speech Language Pathologist Speech Therapy 08/01/24 documented as of this encounter
--- OUTSIDE RECORDS SUMMARY | 2024-10-06 07:42 | XMS_ITS | Clinical Summary ---
Author Organization [facility] Address [address] [place] [address] Care Team Providers Care Outpatient Psychiatrist Name Role Phone Alison Perez MD Primary Care Provider [phone]- [phone] Allergies Active Allergy Reactions Criticality Noted Date [...] Comments Blood Pressure 137/89 05/16/2023 8:34 AM TMD TEACHER ASSISTANT Pulse 90 05/16/2023 8:34 AM TMD TEACHER ASSISTANT Temperature 36.9 C (98.4 F) 05/16/2023 8:34 AM TMD TEACHER ASSISTANT Respiratory Rate 19 05/16/2023 8:34 AM TMD TEACHER ASSISTANT Oxygen Saturation 100% 05/16/2023 8:34 AM TMD TEACHER ASSISTANT Inhaled Oxygen Concentration - - Weight 80.3 kg (177 lb) 05/12/2023 7:32 PM TMD TEACHER ASSISTANT Height 177.8 cm (5' 10 ) 05/12/2023 7:32 PM TMD TEACHER ASSISTANT Body Mass Index 25.4 05/12/2023 7:32 PM TMD TEACHER ASSISTANT Plan of Treatment Health Maintenance Due Date [...] have received informed consent. Yes Care Teams Outpatient Psychiatrist Relationship Specialty Start Date End Date Alison Perez MD [address] [facility] [place] [address] PCP - General 05/08/23
--- OUTSIDE RECORDS SUMMARY | 2024-10-06 07:42 | XMS_ITS | Encounter Summary ---
Author Organization [facility] Health Address [address] [facility] [place] [address] Care Team Providers Care Electrical Contractor Name Role Phone A, Unknown Practice Primary Care Provider [phone] Encounter Details Date Type Department Care Team (Late st Contact Info) Description 04/10/2023 Ophth Exam [facility] - Ophthalmology [address] [place] [address] Elmo Vasquez MD [address] [place] [address] Social History Tobacco Use Types [...] and heating? Not hard at all 04/09/2023 [facility] [place] of Occupat ional Health - Occupational Stress [...] in a correction (including now)? No 04/09/2023 Comments No Sex and Gender Information Value Date Recorded Sex Assigned at Not on file Legal Sex Female 4:46 PM CDT Gender Identity Not on file Sexual Orientation Not on file documented as of this encounter Functional Status * Is person deaf or have serious hearing difficulty? Answer Date of Assessment Author No 04/09/2023 4:[address] rene Patterson RN * Is person blind or have serious difficulty seeing? Answer Date of Assessment Author Yes 04/09/2023 4:[address] rene Patterson RN * Does person have serious difficulty walking/climbing stairs? Answer Date of Assessment Author No 04/09/2023 4:[address] rene Patterson RN * Does person have difficulty dressing/bathing? Answer Date of Assessment Author No 04/09/2023 4:[address] rene Patterson RN * Does person have difficulty doing errands alone? Answer Date of Assessment Author Yes 04/09/2023 4:[address] rene Patterson RN documented as of this encounter Mental Status * Does person have difficulty concentrating/remembering/making decisions? Answer Entry Date Author No 04/09/2023 4:[address] rene Smith, RN documented in this encounter Plan of Treatment Not on file documented as of this encounter Visit Diagnoses Not on filedocumented in this encounter Care Teams Electrical Contractor Relationship Specialty Start Date End Date A, Unknown Practice [address] [place] [id number] PCP - General 04/06/23 documented as of this encounter
--- OUTSIDE RECORDS SUMMARY | 2024-10-06 07:42 | XMS_ITS ---
Author Organization [facility] [place] ([address]) Address [address] [place] [address] Care Team Providers Care Security Sme Name Role Phone Alison Perez Primary Care Provider UnavailTommie Quezada Unavailable [phone] ZZ-Migration, Provider Unavailable Unavailab le Allergies Allergen (clinical drug ingredient) Drug/Non Drug Allergy documented on EMR Reaction Allergy Type Onset Date Status Medicinal quinolone and acting as antibacterial agent (FN) FLUOROQUINOLONE (uncoded) hives Allergy Active SULFA (BACTRIM) (uncoded) hives Allergy Active Medicinal cephalosporin and acting as antibacterial agent (FN) Cephalosporins hives Drug Allergy Active Penicillin hives Drug Allergy Active REASON FOR VISIT [facility] Conversion Encounter Medications Medication SIG (Take, Route, [...] Active Encounters Encounter Location Date Provider Diagnosis [facility] [address] [place] [address] 11/17/2023 Provider CHRISTIAN-Ghada Rash and other nonspecific skin eruption R21 [...] * Jared LEWISOB:[birth year] (69 yo F)Acc No.[id number]:11/17/2023 Patient: Ely QUIÑONEZne Provider: Percy Urrutia :1955 A ge:68 Y S ex:Female Date:11/17/2023 Address:[address] [place], [place] [id number] Pcp:Alison Perez Subjective: * Chief Complaints: * [...] Procedure Codes: * Electronic signature of Shruthi GONZALES-Migration on 10/06/2024 at 07:42 AM CDT Sign off status: Pending * Provider: Percy augustin Migration Date: 11/17/2023 Generated for Lindsey montes/Aaliyah/Mychal on: 10/06/2024 07:42 AM CDT
--- OUTSIDE RECORDS SUMMARY | 2024-10-06 07:42 | XMS_ITS | Patient Health Record ---
Author Organization [facility] Address [address] [place] [address] Care Team Providers Care House Shorer Name Role Phone Brittney Benedict Unavailable [phone] Reason For Referral No Information Medications Medication [...] Date [employer] - Choice/ OA [address] [place] [address] [id number] Toña Yo Self - patient is the insured Medical (General) History Surgical History Surgery Date(Month/Year) Myomectomy; 2021-11-17 Knee surgery; 2021-11-17 Ovarian cyst removal; 2021-11-17 thumb surgery; 2021-11-17 Tubal ligation; 2021-11-17 Radioactive Iodine Thyroid; 2021-11-17
--- OUTSIDE RECORDS SUMMARY | 2024-10-06 07:42 | XMS_ITS | Clinical Summary ---
Author Organization [facility] Address [address] [place] [address] Care Team Providers Care Senior Contracts Administrator Name Role Phone A, Unknown Practice Primary Care Provider [phone] Source Comments [facility],non-owned Affiliates and Associated Physician Practices is amultiple site organization consisting of ambulatory clinics and hospital sitesin [place], [place], [place] and [place]. This disclosure is being madepursuant to the Care Everywhere program and may not contain all information available regarding this patient. Last updated 18.[facility] Allergies Active Allergy Reactions Criticality Noted Date [...] document. Alwaysverify current medications with the patient. levothyroxine (Synthroid) 112 MCG tablet Take 125 mcg by mouth daily before breakfast Active acetaminophen (Tylenol) 325 MG tablet Take 2 (two) tablets by mouth every 4 hours as needed Maximum allowable Acetaminophen amount = 4 Grams (4000 mg) / 24 hours. 3 Active gabapentin (Neurontin) 300 MG capsule Take 1 (one) capsule by mouth 3 times daily 3 Active atorvastatin (Lipitor) 80 MG tablet Take 1 (one) tablet by mouth at bedtime 3 Active melatonin 3 MG tablet Take 2 (two) tablets by mouth at bedtime 3 Active brimonidine (Alphagan) 0.2 % ophthalmic solution Instill 1 (one) drop into both eyes 2 times daily 3 Active timolol maleate (Timoptic) 0.5 % ophthalmic solution Instill 1 (one) drop into both eyes once daily 3 Active telmisartan (Micardis) 80 MG tablet Take 1 (one) tablet by mouth once daily Active amLODIPine (Norvasc) 5 MG tablet Take 1 (one) tablet by mouth once daily Active loratadine (Claritin) 10 MG tablet Take 1 (one) tablet by mouth 2 times daily Active levETIRAcetam (Keppra) 1000 MG tablet Take 1 (one) tablet by mouth 2 times daily 180 tablet 4 4 Active Active Problems Problem Noted Date Diagnosed Date Adverse effect of sulfonamides, subsequent encou nter 08/17/2023 08/17/2023 Allergy to penicillin 08/17/2023 08/17/2023 Graves disease 08/17/2023 08/17/2023 Overview (08/17/2023): Last Assessment & Plan: Continue Synthroid 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 No 04/09/2023 Comments No Sex [...] 36.5 C (97.7 F) 05/07/2023 12:09 PM DIAMOND BLENDER Respiratory Rate 16 05/06/2023 4:17 PM DIAMOND BLENDER Oxygen Saturation 99% 08/17/2023 10:53 AM CDT Inhaled Oxygen Concentration 21% 05/06/2023 7 :01 AM DIAMOND BLENDER Weight 76.2 kg (168 lb 1.6 oz) 08/17/2023 10:53 AM CDT Height 177.8 cm (5' 10 ) 04/24/2023 10:52 AM DIAMOND BLENDER Body Mass Index 24.12 04/24/2023 10:52 AM DIAMOND BLENDER Plan of Treatment Health Maintenance Due Date [...] (2 of 2) 05/06/2020 03/11/2020 COVID-19 VACCINE ( - season) 2024 03/15/2022, 03/30/2021, 09/02/2020, Additional history exists DEPRESSION SCREENING 06/04/2024 04/08/2023 MEDICARE AWV CALENDAR YEAR 2024 COLOGUARD (AGES 45-75) - COLON CA SCREENING 11/17/2024 11/17/2021 Colorectal Cancer Screening 11/17/2024 INFLUENZA VACCINE (Season Ended) 2025 03/15/2022, 03/23/2021, 03/11/2020 Respiratory Syncytial Virus (RSV) Vaccine Pt: or [...] RFLX NAAT QUANT Routine 04/18/2023 2:22 PM DIAMOND BLENDER from Last 3 Months or Most Recently Relevant to Health Maintenance Results * HEPATITIS C AB SCREEN RFLX NAAT QUANT (04/18/2023 2:22 PM DIAMOND BLENDER) Hepatitis C Antibody Non-react denny Non-reac tive 04/18/2023 3:57 PM DIAMOND BLENDER [facility] Comment:Hepatitis C Antibody screen [...] Unknown Venipuncture / Unknown 04/18/2023 2:22 PM DIAMOND BLENDER 04/18/2023 2:25 PM DIAMOND BLENDER Margot Chamorro MD LAB - CHEMISTRY ORDERABLES Final Result [facility] [address] [place] [address], [facility] [phone] from Last 3 Months or Most Recently Relevant to Health Maintenance Insurance [employer] AETNA MEDICARE ADV Advance Directives * Full Code (Latest Code Status on File) Date Activated Date Inactivated Comments 05/07/2023 6:21 PM 05/16/2023 12:21 PM * Full Code Date Activated Date Inactivated Comments 04/09/2023 3:44 AM 05/07/2023 5:57 PM Care Teams Senior Contracts Administrator Relationship Specialty Start Date End Date A, Unknown Practice [address] [place] [address] PCP - General 04/06/23
--- OUTSIDE RECORDS SUMMARY | 2024-10-06 07:43 | XMS_ITS | Referral Summary ---
Author Organization [facility] [place] [facility] Address [address] [place] [address] Care Team Providers Care Enterprise Project Manager Name Role Phone Alison Perez MD Primary Care Provider [phone] Zenon Alexander MD PhD Unavailable Terrence Avalos MD Unavailable HowellAurora moreno Unavailable Encounters Date Type Department Care Team Description 10/01/[address] [facility] Rheumatology [address] [place] [address] 5th [place] [address] [place] [address] Haider Durand Case Management- Basic Needs; PHV 09/29/2024 4:05 PM CDT - 09/29/2024 11:59 PM CDT Hospital Encounter [facility] [address] [place] [address] [employer] vasculitis Discharge Disposition: Discharge to home or self care 09/29/2024 4:[address] [facility] Infectious Diseases [address] [place] [address] [address] [place] [phone] 09/29/2024 2:00 PM CDT Office Visit 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 Neurology [address] [place] [address] [address] [place] [address] Sanya Farmer MD 09/18/2024 9:45 AM CDT Office Visit [facility] at [address] [phone] Phong Turpin NP Encounter for removal of sutures (Primary Dx) 09/16/[address] [facility] Rheumatology [address] [place] [address] Medicine 5th [place] [address] [place] [address] Haider Durand PHV 09/10/2024 Results Follow-Up [facility] at [address] [phone] Marlen Severino PA 09/10/2024 8:50 AM CDT Ancillary Procedure [facility] Imaging at [address] [phone] Laceration of left index finger without foreign body without damage to nail, initial encounter 09/09/2024 5:15 PM CDT Office Visit [facility] at [address] [phone] Marlen Severino PA Laceration of left index finger without foreign body without damage to nail, initial encounter (Primary Dx) 08/30/[address] [facility] Ophthalmology [address] [place] [address] 1st [place] [address] Chris Lr MD 08/26/[address] [facility] Rheumatology [address] [place] [address] 5th [place] [address] [place] [address] Gavi Hernández CMA PHV pt follow up 08/17/2024 10:49 AM CDT - 08/23/2024 5:30 PM CDT Hospital Encounter [address] [address] Tommie Mccann MD Lacy, MD David Rodriguez, Mark Segundo MD Vasculitis (Primary Dx); Vasculitis, [employer] Discharge Disposition: Discharge to home or self care 08/22/[address] [facility] Ophthalmology [address] [place] [phone] Mireille Pineda MD 08/21/[address] [facility] Ophthalmology [address] [place] [phone] Mireille Pineda MD 08/20/[address] [facility] Ophthalmology [address] [place] [phone] Mireille Pineda MD 08/19/[address] [facility] Ophthalmology [address] [place] [phone] Mireille Pineda MD 08/19/2024 9:40 AM CDT Ancillary Procedure [facility] Vascular Lab IP [address] [facility] [address] [place] [phone] 08/19/2024 1:10 PM CDT - 08/19/2024 2:45 PM CDT Surgery [facility] Operating Room 1 [place] [address] Ramesh Graham MD BIOPSY - TEMPORAL ARTERY 08/19/2024 12:31 PM CDT Anesthesia Event [facility] Operating Room 1 [place] [address] Neema Cruz MD PhD Karson Presley NP 08/18/2024 Orders Only [address] [address] Shailesh Wong MD 08/18/[address] [facility] Ophthalmology [address] [facility] 1st [place] [address] Mireille Pineda MD 08/17/[address] [facility] Ophthalmology [address] [phone] Kori Woodward MD 08/16/2024 4:15 PM CDT Office Visit [facility] at [address] [phone] Amy Escamilla, CELIA Vision changes (Primary Dx); Acute intractable headache, unspecified headache type 08/09/[address] [facility] Neurology [address] [place] [phone] Sanya Farmer MD 08/01/20[address] [facility] Physical Therapy [address] [place] [phone] 07/30/2024 10:00 AM NOTCH MACHINE OPERATOR Therapy [facility] Physical Therapy [address] [place] [phone] Aurora Howell, MATTHEW Vasculitis, [employer] (Primary Dx); Mild cognitive impairment 07/29/[address] [facility] Neurology [address] [place] [phone] Sanya Farmer MD 07/18/[address] [facility] Neurology [address] [place] [phone] Samantha Morris 07/15/[address] [facility] Neurology [address] [place] [phone] Sanya Farmer MD 07/14/[address] [facility] Neurology [address] [place] [phone] Sanya Farmer MD 07/10/2024 9:42 AM NOTCH MACHINE OPERATOR - 07/10/2024 11:59 PM NOTCH MACHINE OPERATOR Hospital Encounter [address] [address] 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; Urticarial vasculitis Discharge Disposition: Discharge to home or self care 07/10/2024 9:30 AM NOTCH MACHINE OPERATOR Lab [facility] Endocrinology Metabolism and Lipid [address] [facility] 5th [place] [address] [place] [phone] 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 8:30 AM NOTCH MACHINE OPERATOR Office Visit [facility] Rheumatology [address] [facility] 5th [place] [address] [place] [phone] Hardy De Santiago MD Urticarial vasculitis (Primary Dx); 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; [employer] vasculitis; Abnormal brain scan from Last 3 Months Allergies Active Allergy [...] Medium 08/20/2024 Penicillins Hives Medium 06/04/1989 Hives Quinolones Hives Medium 09/09/2024 Rosuvastatin Headache Low 08/01/2022 Spinach Rash Medium [...] EYE TWICE A DAY 06/07/19 25 Active levETIRAcetam (KEPPRA) 1,000 mg tablet Take 1 tablet (1,000 mg total) by mouth 2 (two) times a day 08/24/19 25 026 Active calcium carbonate (OS-MARTINA) 1,250 mg (500 mg elemental) tablet Take 1 tablet (1,250 mg total) by mouth daily 60 tablet 08/25/19 25 025 Active predniSONE (DELTASONE) 10 mg tablet Take 4 tablets (40 mg) by mouth daily for 7 days, THEN 3.5 tablets (35 mg) daily for 7 days, THEN 3 tablets (30 mg) daily for 7 days, THEN 2.5 tablets (25 mg) daily for 7 days, THEN 2 tablets (20 mg) daily for 14 days. 119 tablet 09/30/[address] (PROTONIX) 40 mg EC tablet Take 1 tablet (40 mg total) by mouth daily 60 tablet 09/30/19 25 025 Active predniSONE (DELTASONE) 10 mg tablet Take 6 tablets (60 mg) by mouth daily for 7 days, THEN 5 tablets (50 mg) daily for 7 days, THEN 4 tablets (40 mg) daily. 317 tablet 08/26/[address] (PROTONIX) 40 mg EC tablet Take 1 tablet (40 mg total) by mouth daily 60 tablet 08/24/19 25 025 Discontinued(Re order) doxycycline (VIBRAMYCIN) 100 mg capsule Take 1 tablet/capsul e (100 mg total) by mouth 2 (two) times a day for 7 days 14 tablet/caps ule 09/10/19 25 025 Active Problems Problem Noted Date Diagnosed Date Vasculitis 08/17/2024 Vasculitis, [employer] 05/22/2024 Adverse effect of sulfonamides, subsequent encou nter 08/17/2023 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 08/17/2023 Essential hypertension 05/08/2023 Overview (09/09/2024): Last Assessment & Plan: Continue amlodipine and losartan Last Assessment & Plan: Continue amlodipine and losartan Assessment & Plan (06/06/2022 8:27 PM NOTCH MACHINE OPERATOR): Continue amlodipine and losartan Unspecified contact dermatitis due to other agen ts 04/23/2023 Acute respiratory failure 04/09/2023 Brain herniation 04/09/2023 Cerebrovascular accident (CVA) 04/09/2023 Endotracheally intubated 04/09/2023 Hyponatremia 04/09/2023 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 Overview (09/09/2024): September SNOMED Diagnostic import 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 Seizure 08/30/2022 Hypokalemia 08/30/2022 Elevated liver enzymes 08/30/2022 Atopic dermatitis 08/30/2022 Facial cellulitis 06/06/2022 Assessment & Plan (06/06/2022 8:26 PM NOTCH MACHINE OPERATOR): Started on Vancomycin CBC and BMP in a.m Cyst of breast 07/07/2015 Graves disease Assessment & Plan (06/06/2022 8:26 PM NOTCH MACHINE OPERATOR): Continue Synthroid Immunizations Immunization Administration Dates Next Due Influenza, Quad, Adjuvantate d, Intramuscular 03/15/2022,03/11/2020 Influenza, Quadrivalent, Hig h Dose, Preservative Free, Intrr 03/23/2021 Influenza, Trivalent, Adjuva nted, Intramuscular 03/06/2024 Influenza, Trivalent, Cell C ulture-based MDCK, Preservative Free, Antibiotic Free, Intramuscular 03/11/2019 Influenza, Unspecified 03/10/2020 RSV Vaccine, Pref, Recombina nt, Subunit, Adjuvanted, PF, IM (Arexvy) 08/09/2023 Sars-CoV-2, Unspecified 03/29/2021,09/01/2020, Tdap 03/10/2020,05/07/2019 ZOSTER Recombinant 03/11/2020 Social History Tobacco Use Types Packs/Day [...] How often do you attend chur or quaker services? More than 4 times per year 08/31/2022 Do you belong to any clubs o r organizations such as scientology groups, unions, fraternal or athletic groups, or [...] on file Legal Sex Female 11:45 AM NOTCH MACHINE OPERATOR Gender Identity Female 02/08/2019 7:49 PM CDT Sexual Orientation Straight 02/08/2019 7: 49 PM CDT Last Filed Vital Signs Vital Sign Reading Time Taken Comments Blood Pressure 145/89 09/29/2024 2:47 PM CDT Pulse 79 09/29/2024 2:47 PM CDT Temperature 37.4 C (99.3 F) 09/18/2024 9:50 AM CDT Respiratory Rate 18 09/18/2024 9:50 AM CDT Oxygen Saturation 100% 09/29/2024 2:47 PM CDT Inhaled Oxygen Concentration - - Weight 70.1 kg (154 lb 9.6 oz) 09/29/2024 2:47 P M CDT Height 177.8 cm (5' 10 ) 09/29/2024 2:47 PM CDT Body Mass Index 22.18 09/29/2024 2:47 PM CDT Plan of Treatment Not on file Procedures Procedure Name Priority Date/Time Associated Diagnosis Comments EGFR Routine 09/29/2024 4:05 PM CDT [employer] vasculitis DIFFERENTIAL AUTO Routine 09/29/2024 4:0 5 PM CDT [employer] vasculitis ANTI-NEUTROPHILIC CYTOPLASMIC ANTIBODY Routine 09/29/2024 4:05 PM CDT [employer] vasculitis PROTEIN / CREATININE RATIO, URINE, RANDOM Routine 09/29/2024 4:05 PM CDT [employer] vasculitis C3 COMPLEMENT Routine 09/29/2024 4:05 PM CDT [employer] vasculitis C4 COMPLEMENT Routine 09/29/2024 4:05 PM CDT [employer] vasculitis ERYTHROCYTE SEDIMENTATION RATE Routine 09/29/2024 4:05 PM CDT [employer] vasculitis CBC WITH AUTO DIFFERENTIAL Routine 09/29/2024 4:05 PM CDT [employer] vasculitis COMPREHENSIVE METABOLIC PANEL Routine 09/29/2024 4:05 PM CDT [employer] vasculitis CRP (ACUTE PHASE) Routine 09/29/2024 4:0 5 PM CDT [employer] vasculitis URINALYSIS AND REFLEX TO MICROSCOPIC AND CULTURE Routine 09/29/2024 4:05 PM CDT [employer] vasculitis SUTURE REMOVAL Routine 09/18/2024 10:02 AM CDT Encounter for removal of sutures XR FINGER LEFT 2 OR MORE VIEWS Schedule CRISTIANA, Read CRISTIANA (Appt Today, Awaiting Results) 09/10/2024 8:43 AM CDT Laceration of left index finger without foreign body without damage to nail, initial encounter LACERATION REPAIR Routine 09/09/2024 6:2 3 PM CDT Laceration of left index finger without foreign body without damage to nail, initial encounter G6PD QUALITATIVE WITH REFLEX TO QUANTITATIVE STAT [...] DEVICE Routine 08/21/2024 5 :48 PM CDT VT DIAGNOSTIC LUMBAR SPINAL PUNCTURE Routine 08/21/2024 3:17 PM CDT Vasculitis, [employer] MYELIN OLIGODENDROCYTE GLYCOPROTEIN ([id number]) FLUORESCENCE-ACTIVATED CELL SORTING [...] URINE, RANDOM STAT 08/19/2024 1:39 AM CDT NEUROMUSCULAR TESTING Routine 08/19/2024 12:00 AM CDT URINALYSIS AND REFLEX TO MICROSCOPIC [...] BODY FLUID STAT 08/18/2024 5:25 AM CDT VT CRITICAL CARE ILL/INJURED PATIENT INIT 30-74 MIN [...] ERYTHROCYTE SEDIMENTATION RATE Routine 07/10/2024 9:42 AM NOTCH MACHINE OPERATOR Urticarial vasculitis THIOPURINE METABOLITES Routine 9:42 AM NOTCH MACHINE OPERATOR 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 COMPREHENSIVE METABOLIC PANEL Routine 07/10/2024 9:42 AM NOTCH MACHINE OPERATOR Urticarial vasculitis CRP (ACUTE PHASE) Routine 07/10/2024 9:4 2 AM NOTCH MACHINE OPERATOR Urticarial vasculitis CBC WITH AUTO DIFFERENTIAL Routine 07/10/2024 9:42 AM NOTCH MACHINE OPERATOR Urticarial vasculitis HEPATITIS PANEL, ACUTE Routine 11:38 AM CDT Rash and other nonspecific skin eruption from Last 3 Months or Most Recently Relevant to Health Maintenance Results * eGFR (09/29/2024 4:05 PM CDT) eGFR 65 >=60 mL/min/1. 73 m2 Comment: Interpretive Data [...] interpretive data was last reviewed 2021. Blood 09/29/2024 4:05 PM CDT 09/29/2024 9:01 PM CDT Hardy Dash MD LAB BL OOD ORDERABLES Final Result [facility] [id number] Department [place] [address] * (ABNORMAL) Differential, auto (09/29/2024 4:05 PM CDT) Neutrophil abs 1.70 1.50 - 6.50 K/cumm Imm gran abs 0.16(H) 0.00 - 0.10 K/cumm [facility] Lymphocyte abs 2.43 0.80 - 3.30 K/cumm [facility] Monocyte abs 0.88(H) 0.20 - 0.80 K/cumm [facility] Eosinophil abs 0.09 0.00 - 0.50 K/cumm [facility] Basophil abs 0.09 0.00 - 0.10 K/cumm [facility] Neutrophil pct 31.8 % [facility] Comment: Interpretive Data Percent cell count reference ranges are not reported, since discordance with absolute values may lead to misinterpretation of CBC data. Current Interpretive Data was last revised on 2017. Imm gran pct 3.0 % [facility] Comment: Interpretive Data Percent cell count reference ranges are not reported, since discordance with absolute values may lead to misinterpretation of CBC data. Current Interpretive Data was last revised on 2017. Lymphocyte pct 45.4 % [facility] Comment: Interpretive Data Percent cell count reference ranges are not reported, since discordance with absolute values may lead to misinterpretation of CBC data. Current Interpretive Data was last revised on 2017. Monocyte pct 16.4 % [facility] Comment: Interpretive Data Percent cell count reference ranges are not reported, since discordance with absolute values may lead to misinterpretation of CBC data. Current Interpretive Data was last revised on 2017. Eosinophil pct 1.7 % [facility] Comment: Interpretive Data Percent cell count reference ranges are not reported, since discordance with absolute values may lead to misinterpretation of CBC data. Current Interpretive Data was last revised on 2017. Basophil pct 1.7 % [facility] Comment: Interpretive Data Percent cell count reference ranges are not reported, since discordance with absolute values may lead to misinterpretation of CBC data. Current Interpretive Data was last revised on 2017. Blood 09/29/2024 4:05 PM CDT 09/29/2024 7:24 PM CDT Hardy Dash MD LAB BL OOD ORDERABLES Final Result [facility] [address] Department [place] [address] * C4 complement (09/29/2024 4:05 PM CDT) Complement C4 32 10 - 40 mg/dL Blood 09/29/2024 4:05 PM CDT 09/29/2024 7:23 PM CDT Hardy Dash MD LAB BL OOD ORDERABLES Final Result [facility] [address] [address] [place] [address] * Urinalysis reflex to microscopic and culture Urine (09/29/2024 4:05 PM CDT) Color, ur Yellow Yellow Clarity, ur Clear Clear [facility] Specific gravity, ur 1.013 1.003 - 1.030 [facility] pH, urine 7.0 [facility] Comment: Interpretive Data U rine pH is affected by diet, medications, systemic acid-base disturbances, and renal tubular function. pH may affect urinary stone formation. For example, urine pH below 6.0 may help reduce the tendency for calcium phosphate stones and pH greater than 6.0 may reduce the tendency for uric acid stone formation. Source: [facility] [employer] Current Interpretive Data was last revised on 2017 Protein, ur ql Negative Negative [facility] Glucose, ur ql Negative Negative [facility] Ketones, ur Negative Negative [facility] Bilirubin, ur Negative Negative [facility] Blood, ur Negative Negative [facility] Urobilinogen, ur <2.0 <2.0 mg/dL [facility] Nitrite, ur Negative Negative [facility] Leukocyte esterase, ur Negative Negative [facility] UA reflex comment Reflex conditions for microscopic UA and culture not met. [facility] Urine 09/29/2024 4:05 PM CDT 09/29/2024 7:45 PM CDT Hardy Dash MD LAB MICROBIOLOGY - GENERAL ORDERABLES Final Result [facility] [address] Department [facility] [place], [place] [id number] * (ABNORMAL) CBC with auto differential (09/29/2024 4:05 PM CDT) WBC 5.35 3.80 - 9.90 K/cumm Hgb 11.9 11.9 - 15.5 g/dL [facility] Hct 37.7 35.6 - 45.5 % [facility] Plt 397 150 - 400 K/cumm [facility] MPV 9.0(L) 9.1 - 12.3 fL [facility] RBC 3.84(L) 3.90 - 5.20 M/cumm [facility] MCV 98.2(H) 81.3 - 96.4 fL [facility] MCH 31.0 27.1 - 33.3 pg [facility] MCHC 31.6(L) 32.3 - 35.7 g/dL [facility] RDW CV 14.4 11.1 - 14.9 % [facility] RDW SD 52.1(H) 35.7 - 48.1 fL [facility] NRBC abs 0.00 0.00 - 0.01 K/cumm [facility] Blood 09/29/2024 4:05 PM CDT 09/29/2024 7:24 PM CDT Hardy Dash MD LAB BL OOD ORDERABLES Final Result [facility] [address] Department [place] [address] * Protein / creatinine ratio, urine, random (09/29/2024 4:05 PM CDT) Protein, ur, quant 6.9 mg/dL Comment: Interpretive Data No reference range established. Current interpretive data was last revised 2018. Creatinine Ur 65.1 mg/dL [facility] Comment: Interpretive Data No reference range established. Current interpretive data was last revised 2018. Protein/creatinin e ratio 106.0 0.0 - 180.0 mg/g CR [facility] Urine 09/29/2024 4:05 PM CDT 09/29/2024 7:44 PM CDT Hardy Dash MD LAB UR INE ORDERABLES Final Result [facility] [address] [facility] [place] [place] [address] * ANCA (09/29/2024 4:05 PM CDT) Pathologist [facility] [place] C-ANCA Negative Negative [place] ref Lab P-ANCA Negative Negative [facility] Comment: Negative for cANCA and pANCA patterns by immunofluorescence. ADDITIONAL INFORMATION This test was developed and its performance characteristics determined by [facility] in a manner consistent with CLIA requirements. This test has not been cleared or approved by the U.S. Food and Drug Administration. Test Performed by: [address] [address] [employer] Instructor: Dawit Avendano Ph.D.; CLIA# [id number] Blood 09/29/2024 4:05 PM CDT 09/30/2024 9:46 AM CDT Hardy Dash MD LAB BL OOD ORDERABLES Final Result [facility] [address] [place] [address] [facility] * (ABNORMAL) Erythrocyte sedimentation rate (09/29/2024 4:05 PM CDT) Pathologist [facility] [place] Erythrocyte sedimentation rate 55(H) 1 - 30 mm/hr Comment:Testing performed by : [facility], [place], [address] Blood 09/29/2024 4:05 PM CDT 09/29/2024 7:24 PM CDT Hardy Dash MD LAB BL OOD ORDERABLES Final Result [facility] [address] [place] [address] * C3 complement (09/29/2024 4:05 PM CDT) Complement C3 162 90 - 180 mg/dL Blood 09/29/2024 4:05 PM CDT 09/29/2024 7:23 PM CDT Hardy Dash MD LAB BL OOD ORDERABLES Final Result Performing Organization Address City/[facility]/ZIP Co de Phone Number [facility] [address] Department [place] [employer] [place] [address] * (ABNORMAL) CRP (acute phase) (09/29/2024 4:05 PM CDT) Pathologist [facility] [place] CRP 27.4(H) <=10.0 mg/L Blood 09/29/2024 4:05 PM CDT 09/29/2024 7:23 PM CDT Hardy Dash MD LAB BL OOD ORDERABLES Final Result Performing Organization Address City/[facility] Co de Phone Number [facility] [address] Department [place] [address] * (ABNORMAL) Comprehensive metabolic panel (09/29/2024 4:05 PM CDT) Pathologist [facility] [place] Sodium 134(L) 135 - 145 mmol/L Potassium, pl 4.0 3.3 - 4.9 mmol/L [facility] Chloride 95(L) 97 - 110 mmol/L [facility] CO2 27 22 - 32 mmol/L [facility] Anion gap 12 2 - 15 mmol/L [facility] BUN 10 6 - 25 mg/dL [facility] Creatinine 0.94 0.60 - 1.10 mg/dL [facility] Glucose 82 70 - 199 mg/dL [facility] Comment: Interpretive Data Fasting glucose >/= 126 [...] interpretive data was last revised 2022. Calcium 9.9 8.5 - 10.3 mg/dL [facility] Bilirubin, total 0.2 0.1 - 1.2 mg/dL [facility] Protein, pl 8.2 6.5 - 8.5 g/dL [facility] Albumin 4.0 3.5 - 5.0 g/dL [facility] Alk phos 89 40 - 130 Units/L [facility] ALT 20 7 - 45 Units/L [facility] AST 42 10 - 45 Units/L [facility] Blood 09/29/2024 4:05 PM CDT 09/29/2024 7:23 PM CDT Hardy Dash MD LAB BL OOD ORDERABLES Final Result [facility] [address] [address] Department [place] [address] * Suture Removal (09/18/2024 10:02 AM CDT) Narrative Phong Turpin NP - 09/18/2024 10:02 AM CDT Phong Turpin NP 09/18/2024 10:05 AM Suture Removal Date/Time: 09/18/2024 10:02 AM Performed by: Phong Turpin NP Authorized by: Phong Turpin NP To generate suggested charges, all areas highlighted in orange must be documented. If there are no orange regions, a default charge will not be suggested. The procedure documentation in the form should sufficiently describe the procedure performed. Lab orders must be placed in the Orders section of the visit taskbar.: RN Notified of Procedure: yes Informed consent: Risks, benefits, alternatives discussed Patient's stated name/ matches armband: Yes Allergies confirmed: yes Anesthesia: Local anesthesia used?: No Location: Body area: Upper extremity Location details: Left index finger Location details: Left index finger Location details: Left index finger Location details: Left index finger Location details: Left index finger Procedure details: Wound appearance: Clean Sutures removed: Yes Sutures removed: 10 Post-removal: Dressing applied and antibiotic ointment applied Facility: Sutures placed in this facility patient tolerated the procedure well with no immediate complications All procedure needles, sponges and other items accounted for: Yes Phong Turpin NP IN CLINIC/BEDSIDE ORDERABLES Fi nal Result * XR Finger Left 2+ Vw (09/10/2024 8:43 AM CDT) Anatomical Region Laterality Modality Upper Extremities, Hand, Fingers Left Digital Radiography 09/10/2024 12:2 8 PM CDT Narrative 09/10/2024 12:29 PM CDT EXAM DESCRIPTION: XR FINGER LEFT 2 OR MORE VIEWS REASON FOR STUDY: finger laceration Laceration to the left 2nd digit yesterday. FINDINGS: Three views of the left index finger are submitted for interpretation without comparison. Bandaging material is present at the distal aspect of the index finger. 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 No acute fracture or foreign body. Deformity of the small finger proximal phalanx head is likely from old healed fracture. IMPRESSION: Bandaging material at the left index finger distally at the site of laceration without evidence of acute fracture or foreign body. THIS IS AN ELECTRONICALLY VERIFIED FINAL REPORT 09/10/2024 12:29 PM - Electronically signed by Sen Mayfield M.D. T: Report ID: [id number] Reading Location: [id number] Procedure Note Sen Mayfield MD - 09/10/2024 EXAM DESCRIPTION: XR FINGER LEFT 2 OR MORE VIEWS REASON FOR STUDY: finger laceration Laceration to the left 2nd digit yesterday. FINDINGS: Three views of the left index finger are submitted for interpretation without comparison. Bandaging material is present at the distal aspect of the index finger. 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 No acutefracture or foreign body. Deformity of the small finger proximal phalanx head is likely from old healed fracture. IMPRESSION: Bandaging material at the left index finger distally at the site of laceration without evidence of acute fracture or foreign body. THIS IS AN ELECTRONICALLY VERIFIED FINAL REPORT 09/10/2024 12:29 PM - Electronically signed by Sen Mayfield M.D. T: Report ID: [id number] Reading Location: [id number] Marlen FREIRE IMG XR PROCEDURES Final Result * Laceration Repair (09/09/2024 6:23 PM CDT) Narrative Marlen Severino PA - 09/09/2024 6:23 PM CDT Marlen Severino PA 09/09/2024 6:27 PM Laceration Repair Date/Time: 09/09/2024 6:23 PM Performed by: Marlen Severino PA Authorized by: Marlen Severino PA Consent: Consent obtained: Verbal Consent given by: Patient Risks, benefits, and alternatives were discussed: yes Risks discussed: Infection, pain and poor cosmetic result Anesthesia: Anesthesia method: Nerve block Block location: Index finger L Block needle gauge: 27 G Block anesthetic: Lidocaine 2% w/o epi Block injection procedure: Introduced needle, incremental injection, anatomic landmarks palpated and anatomic landmarks identified Block outcome: Anesthesia achieved Laceration details: Location: Finger Finger location: L index finger Pre-procedure details: Preparation: Patient was prepped and draped in usual sterile fashion Exploration: Hemostasis achieved with: Direct pressure and tourniquet Imaging obtained: x-ray Wound extent: no nerve damage noted and no tendon damage noted Treatment: Area cleansed with: Chlorhexidine and saline Amount of cleaning: Standard Skin repair: Repair method: Sutures Suture size: 5-0 Suture material: Nylon Suture technique: Simple interrupted Number of sutures: 10 Approximation: Approximation: Close Repair type: Repair type: Simple Post-procedure details: Dressing: Antibiotic ointment and non-adherent dressing Procedure completion: Tolerated well, no immediate complications us Marlen FREIRE IN CLINIC/BEDSIDE ORDERA BLES Final Result * G6PD qualitative with reflex to quantitative [...] ORDERABLES Keyona l Result Performing Organization Address City/[facility] Co de Phone Number [facility] [place] [employer] [place] [address] * POCT glucose (08/23/2024 12:14 PM CDT) Glucose, POC 149 70 - 199 mg/dL Blood 08/23/2024 12:1 4 PM CDT 08/23/2024 12:14 PM CDT Mark Hernandez MD LAB POCT ORDERABLES - DEV ICE Final Result Performing Organization Address [facility] Co de Phone Number [facility] [place] [employer] [place] [address] * POCT glucose (08/23/2024 8:20 AM CDT) Glucose, POC 117 70 - 199 mg/dL Blood 08/23/2024 8:20 AM CDT 08/23/2024 8:20 AM CDT Mark Hernandez MD LAB POCT ORDERABLES - DEV ICE Final Result Performing Organization Address City/[facility] Co de Phone Number [facility] [place] [employer] [place] [address] * eGFR (08/23/2024 5:20 AM CDT) eGFR [...] ORDERABLES Keyona l Result Performing Organization Address City/[facility]/ZIP Co de Phone Number [facility] [place] [address] * (ABNORMAL) Erythrocyte sedimentation rate (08/23/2024 5:20 AM CDT) Erythrocyte sedimentation rate 94(H) 1 - 30 mm/hr Blood 08/23/2024 5:20 AM CDT 08/23/2024 5:42 AM CDT Mark Hernandez MD LAB BLOOD ORDERABLES Keyona l Result Performing Organization Address City/[facility]/ZIP Co de Phone Number [facility] [place] [employer] [place] [address] * (ABNORMAL) CBC without differential (08/23/2024 5:20 AM CDT) Pathologist [facility] [place] WBC 15.6(H) 3.8 - 9.9 K/cumm Hgb 8.6(L) 11.9 - 15.5 g/dL [facility] Hct 25.2(L) 35.6 - 45.5 % [facility] Plt 333 150 - 400 K/cumm [facility] MPV 9.3 9.1 - 12.3 fL [facility] RBC 2.69(L) 3.90 - 5.20 M/cumm [facility] MCV 93.7 81.3 - 96.4 fL [facility] MCH 32.0 27.1 - 33.3 pg [facility] MCHC 34.1 32.3 - 35.7 g/dL [facility] RDW CV 14.5 11.1 - 14.9 % [facility] RDW SD 49.2(H) 35.7 - 48.1 fL [facility] NRBC abs 0.00 0.00 - 0.01 K/cumm [facility] Blood 08/23/2024 5:20 AM CDT 08/23/2024 5:42 AM CDT Mark Hernandez MD LAB BLOOD ORDERABLES Keyona l Result Performing Organization Address City/[facility] Co de Phone Number [facility] [place] [place] [address] * (ABNORMAL) CRP (acute phase) (08/23/2024 5:20 AM CDT) [facility] CRP 30.8(H) <=10.0 mg/L Blood 08/23/2024 5:20 AM CDT 08/23/2024 5:42 AM CDT Mark Hernandez MD LAB BLOOD ORDERABLES Keyona l Result Performing Organization Address City/[facility]/ZIP Co de Phone Number [facility] [place] [address] * Basic metabolic panel (08/23/2024 5:20 AM CDT) Sodium 137 135 - 145 mmol/L Potassium, pl 4.8 3.3 - 4.9 mmol/L [facility] Chloride 101 97 - 110 mmol/L [facility] CO2 28 22 - 32 mmol/L [facility] Anion gap 8 2 - 15 mmol/L [facility] BUN 18 6 - 25 mg/dL [facility] Creatinine 0.73 0.60 - 1.10 mg/dL [facility] Glucose 132 70 - 199 mg/dL [facility] Comment: Interpretive Data Fasting glucose [...] 2022. Calcium 9.4 8.5 - 10.3 mg/dL [facility] Blood 08/23/2024 5:20 AM CDT 08/23/2024 5:42 AM CDT us Mark Hernandez MD LAB BLOOD ORDERABLES Keyona l Result [facility] [place] [address] * POCT glucose (08/22/2024 9:22 PM CDT) Glucose, POC 172 70 - 199 mg/dL Blood 08/22/2024 9:22 PM CDT 08/22/2024 9:22 PM CDT us Mark Hernandez MD LAB POCT ORDERABLES - DEV ICE Final Result Performing Organization Address City/[facility] Co de Phone Number [facility] [place] [employer] [place] [address] * POCT glucose (08/22/2024 4:59 PM CDT) Glucose, POC 172 70 - 199 mg/dL Blood 08/22/2024 4:59 PM CDT 08/22/2024 4:59 PM CDT Mark Hernandez MD LAB POCT ORDERABLES - DEV ICE Final Result Performing Organization Address [facility] [place] [address] * POCT glucose (08/22/2024 12:24 PM CDT) Glucose, POC 156 70 - 199 mg/dL Blood 08/22/2024 12:2 4 PM CDT 08/22/2024 12:24 PM CDT Mark Hernandez MD LAB POCT ORDERABLES - DEV ICE Final Result Performing Organization Address [facility] Co de Phone Number [facility] [place] [place] [address] * POCT glucose (08/22/2024 8:05 AM CDT) Glucose, POC 135 70 - 199 mg/dL Blood 08/22/2024 8:05 AM CDT 08/22/2024 8:05 AM CDT Mark Hernandez MD LAB POCT ORDERABLES - DEV ICE Final Result Performing Organization Address City/[facility] Co de Phone Number [facility] [place] [place] [address] * POCT glucose (08/21/2024 9:15 PM CDT) Glucose, POC 164 70 - 199 mg/dL Blood 08/21/2024 9:15 PM CDT 08/21/2024 9:15 PM CDT Mark Hernandez MD LAB POCT ORDERABLES - DEV ICE Final Result Performing Organization Address [facility] de Phone Number [facility] [place] [place] [address] * POCT glucose (08/21/2024 5:48 PM CDT) Glucose, POC 144 70 - 199 mg/dL Blood 08/21/2024 5:48 PM CDT 08/21/2024 5:48 PM CDT Mark Hernandez MD LAB POCT ORDERABLES - DEV ICE Final Result Performing Organization Address [facility] de Phone Number [facility] [place] [employer] [place] [address] * [place] DIAGNOSTIC LUMBAR SPINAL PUNCTURE (08/21/2024 3:17 PM CDT) Narrative Mark Hernandez MD - 08/21/2024 3:17 PM CDT Mark Hernandez MD 08/21/2024 3:19 PM Lumbar Puncture Date/Time: 08/21/2024 3:17 PM Performed by: Mark Hernandez MD Authorized by: Mark Hernandez MD [place] Protocol: RN Notified of Procedure: yes Informed consent: Risks, benefits, alternatives discussed and patient/outreach representative/guardian agrees and accepts Patient's stated name/ [...] Cell Sorting (FACS) (08/21/2024 1:06 PM CDT) Pathologist [facility] [place] MOG IgG ser Negative Negative [place] ref [facility] Comment: No informative autoantibodies were detected in this evaluation. A negative result does not preclude a diagnosis of an inflammatory [employer] demyelinating disorder. ADDITIONAL INFORMATION This test was developed and its performance characteristics determined by [facility] in a manner consistent with CLIA requirements. This test has not been cleared or approved by the U.S. Food and Drug Administration. Test Performed by: [address] [address] [employer] Instructor: Dawit Avendano Ph.D.; CLIA# [id number] Blood 08/21/2024 1:06 PM CDT 08/21/2024 2:12 PM CDT Mark Hernandez MD LAB BLOOD ORDERABLES Keyona l Result Performing Organization Address City/[facility] Co de Phone Number [facility] [place] [address] [place] ref [facility] * NMO (neuromyelitis optica) IgG, serum (08/21/2024 1:06 PM CDT) Pathologist [facility] [place] NMO/AQP4 IgG ser Negative Negative [place] ref Lab Comment: Recommend repeat testing in 6 months if clinical suspicion is high. Negative result can occur in the setting of immunosuppression. ADDITIONAL INFORMATION This test was developed and its performance characteristics determined by [facility] in a manner consistent with CLIA requirements. This test has not been cleared or approved by the U.S. Food and Drug Administration. Test Performed by: [facility] [place] [address] [employer] Instructor: Dawit Avendano Ph.D.; CLIA# [id number] Blood 08/21/2024 1:06 PM CDT 08/21/2024 2:13 PM CDT Mark Hernandez MD LAB BLOOD ORDERABLES Keyona l Result Performing Organization Address [facility] Co de Phone Number KARMA BORGES [facility] [place] [address] [place] ref [facility] * POCT glucose (08/21/2024 12:45 PM CDT) Pathologist [facility] [place] Glucose, POC 159 70 - 199 mg/dL Blood 08/21/2024 12:4 5 PM CDT 08/21/2024 12:45 PM CDT Mark Hernandez MD LAB POCT ORDERABLES - DEV ICE Final Result Performing Organization Address City/[facility] Co de Phone Number KARMA [facility] [place] [address] * POCT glucose (08/21/2024 8:12 AM CDT) Glucose, POC 136 70 - 199 mg/dL Blood 08/21/2024 8:12 AM CDT 08/21/2024 8:12 AM CDT us Shailesh Wong MD LAB POCT ORDERABLES - DEVICE Final Result Performing Organization Address [facility] Co de Phone Number KARMA [facility] [place] [address] * eGFR (08/20/2024 9:49 PM CDT) Pathologist [facility] [place] eGFR >90 >=60 mL/min/1. 73 m2 Comment: [...] ORDERABLES Keyona l Result Performing Organization Address City/[facility]/ZIP Co de Phone Number [facility] [place] [address] * (ABNORMAL) Erythrocyte sedimentation rate (08/20/2024 9:49 PM CDT) [facility] Erythrocyte sedimentation rate 95(H) 1 - 30 mm/hr Blood 08/20/2024 9:49 PM CDT 08/20/2024 10:04 PM CDT us Shailesh Wong MD LAB BLOOD ORDERABLES Final Re sult Performing Organization Address [facility] Co de Phone Number [facility] [place] [address] * (ABNORMAL) CBC without differential (08/20/2024 9:49 PM CDT) [facility] WBC 13.8(H) 3.8 - 9.9 K/cumm Hgb 9.9(L) 11.9 - 15.5 g/dL [facility] Hct 28.4(L) 35.6 - 45.5 % [facility] Plt 232 150 - 400 K/cumm [facility] MPV 9.7 9.1 - 12.3 fL [facility] RBC 3.08(L) 3.90 - 5.20 M/cumm [facility] MCV 92.2 81.3 - 96.4 fL [facility] MCH 32.1 27.1 - 33.3 pg [facility] MCHC 34.9 32.3 - 35.7 g/dL [facility] RDW CV 14.1 11.1 - 14.9 % [facility] RDW SD 47.7 35.7 - 48.1 fL [facility] NRBC abs 0.00 0.00 - 0.01 K/cumm [facility] Blood 08/20/2024 9:49 PM CDT 08/20/2024 10:04 PM CDT us Mark Hernandez MD LAB BLOOD ORDERABLES Keyona l Result Performing Organization Address City/[facility]/ZIP Co de Phone Number [facility] [place] [address] * (ABNORMAL) CRP (acute phase) (08/20/2024 9:49 PM CDT) Pathologist [facility] [place] CRP 195.4(H) <=10.0 mg/L Blood 08/20/2024 9:49 PM CDT 08/20/2024 10:04 PM CDT Shailesh Wong MD LAB BLOOD ORDERABLES Final Re sult Performing Organization Address City/[facility] Co de Phone Number [facility] [place] [address] * (ABNORMAL) Basic metabolic panel (08/20/2024 9:49 PM CDT) Pathologist [facility] [place] Sodium 131(L) 135 - 145 mmol/L Potassium, pl 4.7 3.3 - 4.9 mmol/L [facility] Chloride 95(L) 97 - 110 mmol/L [facility] CO2 25 22 - 32 mmol/L [facility] Anion gap 11 2 - 15 mmol/L [facility] BUN 18 6 - 25 mg/dL [facility] Creatinine 0.65 0.60 - 1.10 mg/dL [facility] Glucose 157 70 - 199 mg/dL [facility] Comment: Interpretive Data Fasting glucose [...] 2022. Calcium 8.9 8.5 - 10.3 mg/dL [facility] Blood 08/20/2024 9:49 PM CDT 08/20/2024 10:04 PM CDT us Mark Hernandez MD LAB BLOOD ORDERABLES Keyona l Result Performing Organization Address City/[facility] Co de Phone Number [facility] [place] [address] * POCT glucose (08/20/2024 9:20 PM CDT) Glucose, POC 168 70 - 199 mg/dL Blood 08/20/2024 9:20 PM CDT 08/20/2024 9:20 PM CDT us Shailesh Wong MD LAB POCT ORDERABLES - DEVICE Final Result Performing Organization Address [facility] Co de Phone Number [facility] [place] [address] * POCT glucose (08/20/2024 9:14 PM CDT) Glucose, POC 149 70 - 199 mg/dL Blood 08/20/2024 9:14 PM CDT 08/20/2024 9:14 PM CDT us Shailesh Wong MD LAB POCT ORDERABLES - DEVICE Final Result Performing Organization Address [facility] Co de Phone Number [facility] [place] [address] * POCT glucose (08/20/2024 5:26 PM CDT) Glucose, POC 140 70 - 199 mg/dL Blood 08/20/2024 5:26 PM CDT 08/20/2024 5:26 PM CDT Shailesh Wong MD LAB POCT ORDERABLES - DEVICE Final Result Performing Organization Address [facility] Co de Phone Number [facility] [place] [address] * POCT glucose (08/20/2024 1:32 PM CDT) Glucose, POC 132 70 - 199 mg/dL Blood 08/20/2024 1:32 PM CDT 08/20/2024 1:32 PM CDT us Shailesh Wong MD LAB POCT ORDERABLES - DEVICE Final Result KARMA [facility] [place] [address] * MRI MRA Vessel Wall Imaging W [...] 2. Magnetic resonance angiography (MRA) of the gefslh-qv-Snsght without and with contrast 3. 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 Magnetic resonance angiography of the rcmnuv-av-Ciwwbw was performed using a separate data acquisition with a non-contrast xgfl-ne-gjomiv technique and a post-contrast technique to produce [...] on prior study is not redemonstrated. The nzxxen-da-Tkyyjc is complete. The anterior and middle cerebral [...] 2. Magnetic resonance angiography (MRA) of the ktofwj-eu-Oxwttj without and with contrast 3. 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 Magnetic resonance angiography of the lzlhuh-vi-Ryxzkr was performed using a separate data acquisition with a non-contrast yybe-fj-fddfwu technique and a post-contrast technique to produce [...] on prior study is not redemonstrated. The hqfqnw-te-Fzxbvq is complete. The anterior and middle cerebral [...] 2. Magnetic resonance angiography (MRA) of the nqqjqt-ae-Nddhfx without and with contrast 3. 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 Magnetic resonance angiography of the rvbtqb-sz-Mligzb was performed using a separate data acquisition with a non-contrast zuxe-pv-gitnkr technique and a post-contrast technique to produce [...] on prior study is not redemonstrated. The npnuxo-vd-Lzjszm is complete. The anterior and middle cerebral [...] 2. Magnetic resonance angiography (MRA) of the novtkp-lv-Hczjvl without and with contrast 3. 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 Magnetic resonance angiography of the cudnpf-la-Cqcsnc was performed using a separate data acquisition with a non-contrast bzon-rk-hhnbxc technique and a post-contrast technique to produce [...] on prior study is not redemonstrated. The kebunl-te-Zemhra is complete. The anterior and middle cerebral [...] * POCT glucose (08/20/2024 7:55 AM CDT) [facility] Glucose, POC 131 70 - 199 mg/dL Blood 08/20/2024 7:55 AM CDT 08/20/2024 7:55 AM CDT Shailesh Wong MD LAB POCT ORDERABLES - DEVICE Final Result KARMA [facility] [place] [place] [address] * Neuromuscular Specimen Tracking Inpatient Blood (08/19/2024 11:16 PM CDT) Blood 08/19/2024 11:1 6 PM CDT 08/19/2024 11:16 PM CDT Narrative KARMA [facility] - 08/19/2024 11:16 PM CDT Blood draw complete Shailesh Wong MD LAB BLOOD ORDERABLES Final Re sult [facility] [place] [address] * Immunotyping, serum with interpretation (08/19/2024 11:16 PM CDT) [facility] Immunosubtraction Please see comment Comment: NO PARAPROTEIN DETECTED Reviewed and signed by Elmo Luna MD, PhD 08/20/2024 Blood 08/19/2024 11:1 6 PM CDT 08/19/2024 11:32 PM CDT us Shailesh Wong MD LAB BLOOD ORDERABLES Final Re sult [facility] [place] [address] * (ABNORMAL) Lupus Anticoagulant Panel plus Reflexes (08/19/2024 11:16 PM CDT) PT 12.8 9.7 - 13.0 sec INR 1.18 0.90 - 1.20 [facility] Comment: Interpretive data Oral anticoagulant therapeutic ranges: Venous thromboembolism prophylaxis or treatment: 2.0-3.0 CARDIOLOGY Standard range: 2.0-3.0 High-intensity range: 2.5-3.5 Refer to indication-specific guidelines for appropriate target ranges for prosthetic heart valve replacement. Current interpretive data was last revised on 2019. aPTT 36 28 - 38 sec [facility] Comment: Interpretive Data Heparin therapeutic range: 66.0 - 100.0 seconds. Range based on correlation with therapeutic heparin activity range of 0.3 - 0.7 Units/mL. Current interpretive data was last revised on 2023. DRVVT screen ratio 1.45(H) 0.00 - 1.20 Ratio [facility] DRVVT confirm ratio 1.22 Ratio [facility] DRVVT S/C Ratio 1.18 0.00 - 1.20 Ratio [facility] SCT Screen Ratio 1.47(H) 0.00 - 1.16 Ratio [facility] SCT Confirm Ratio 1.17 Ratio [facility] SCT S/C Ratio 1.25(H) 0.00 - 1.16 Ratio [facility] Lupus anticoagulant, interp Positive( A) [facility] Comment: Interpretive data Lupus anticoagulants [...] heparin. References: 1) Michael V, Kat A, Gifty JH, Oryoanl TL, Kim M, De Groot PG. Update of the guidelines for lupus anticoagulant detection. J Thromb Haemost. 2009; 7:4204-8607. 2. Darrell Hills. et al. International consensus statement on an update of the classification criteria for definite antiphospholipid syndrome (APS). J Thromb Haemost. 2006; 4:295-306. Current interpretive data was last revised on 2018 Blood 08/19/2024 11:1 6 PM CDT 08/20/2024 12:33 AM CDT us Shailesh Wong MD LAB BLOOD ORDERABLES Final Re sult K[facility]MA [facility] Department [place] [address] * Miscellaneous Test Sendout Chemistry (08/19/2024 11:16 PM CDT) Test name Varicella-Zos ter Virus (VZV) Antibody, IgG & IgM, Serum Result 1 Specimen Type: Serum Result: See scanned result in Medical Record. [facility] Blood 08/19/2024 11:1 6 PM CDT 08/21/2024 1:25 PM CDT Mark Hernandez MD LAB BLOOD ORDERABLES Keyona l Result Performing Organization Address [facility] Co de Phone Number [facility] [place] [address] * (ABNORMAL) Immunoglobulin free light chains (08/19/2024 11:16 PM CDT) [place]/Lambda ratio [facility] 0.88 0.26 - 1.65 Comment: Interpretive Data The Binding Site FreeLite assay procedure was used. Results from different manufacturers or methods may not be comparable. Serial testing should be performed using the same methods and instrumentation. Current Interpretive Data was last revised on 2023. [place] free light chain [facility] 2.83(H) 0.33 - 1.94 mg/dL [facility] Comment: Interpretive Data The Binding Site FreeLite assay procedure was used. Results from different manufacturers or methods may not be comparable. Serial testing should be performed using the same methods and instrumentation. Current Interpretive Data was last revised on 2023. Lambda free light chain [facility] 3.22(H) 0.57 - 2.63 mg/dL [facility] Comment: Interpretive Data The Binding [...] ORDERABLES Final Re sult Performing Organization Address [facility]/ZIP Co de Phone Number [facility] [place] [address] * (ABNORMAL) Cardiolipin antibody, IgG (08/19/2024 11:16 [...] ELISEO. These results were obtained with the [employer]ge 2200 System. Cardiolipin IgG values obtained with different manufacturers' assay methods may not be used interchangeably. Current interpretive data was last revised on 2016. Blood 08/19/2024 11:1 6 PM CDT 08/19/2024 11:32 PM CDT us Shailesh Wong MD LAB BLOOD ORDERABLES Final Re sult [facility] [place] [address] * Beta 2 glycoprotein IgM Ab (08/19/2024 [...] factor. These results were obtained with the [employer]ge 2200 System. Beta-2 GP1 IgM values obtained with different manufacturers' assay methods may not be used interchangeably. Current interpretive data was last revised on 2016. Blood 08/19/2024 11:1 6 PM CDT 08/19/2024 11:32 PM CDT us Shailesh Wong MD LAB BLOOD ORDERABLES Final Re sult [facility] [place] [address] * (ABNORMAL) Beta 2 glycoprotein IgG Ab (08/19/2024 11:16 PM CDT) [facility] Beta-2 glycoprotein I, IgG 69.0(H) <=19.9 units/mL Comment: Interpretive Data Negative: <20 U/mL Positive: > or = 20 U/mL Beta-2 glycoprotein 1 (Beta-2 GP1) antibodies are a more specific marker of thrombotic risk. It is expected that some samples will be ACL positive and Beta- 2 [id number]. In order to improve specificity, the International Congress on Antiphospholipid Antibodies recommends Beta-2 GP1 antibodies of IgG or IgM isotype (> the 99th percentile), obtained twice, at least 12 weeks apart, to support a diagnosis of antiphospholipid syndrome. The cutoff for this assay was developed from data based on the 99th percentile. These results were obtained with the [employer] 2200 System. Beta 2GP1 IgG values obtained with different manufacturers' assay methods may not be used interchangeably. Current interpretive data was last revised on 2016. Blood 08/19/2024 11:1 6 PM CDT 08/19/2024 11:32 PM CDT Shailesh Wong MD LAB BLOOD ORDERABLES Final Re sult Performing Organization Address [facility] Co de Phone Number [facility] [place] [employer] [place] [address] * PR3 - proteinase 3, Ab (08/19/2024 11:16 PM CDT) Proteinase 3 ab <0.2 <=0.9 Ab Index Comment: Interpretive Data Negative: <1 Ab Index Positive: > or = 1 Ab Index Current interpretive data was last revised on 2016. Blood 08/19/2024 11:1 6 PM CDT 08/19/2024 11:32 PM CDT Shailesh Wong MD LAB BLOOD ORDERABLES Final Re sult Performing Organization Address [facility] [place] [address] * MPO - myeloperoxidase antibody (08/19/2024 11:16 PM CDT) Myeloperoxidase ab <0.2 <=0.9 Ab Index Comment: Interpretive Data Negative: <1 Ab Index Positive: > or = 1 Ab Index Current interpretive data was last revised on 2016. Blood 08/19/2024 11:1 6 PM CDT 08/19/2024 11:32 PM CDT Shailesh Wogn MD LAB BLOOD ORDERABLES Final Re sult Performing Organization Address [facility] Co de Phone Number [facility] [place] [employer] [place] [address] * Cyclic citrul peptide antibody, IgG (08/19/2024 11:16 PM CDT) CCP Ab <0.5 <=2.9 units/mL Comment: Interpretive data Negative: <3 units/mL Positive: > or equal to 3 units/mL Current interpretive data was last revised on 2016. Blood 08/19/2024 11:1 6 PM CDT 08/19/2024 11:32 PM CDT us Shailesh Wong MD LAB BLOOD ORDERABLES Final Re sult [facility] [place] [address] * Cardiolipin antibody, IgM (08/19/2024 11:16 PM CDT) Cardiolipin, IgM 0.2 <=19.9 MPL U/mL Comment: [...] antibodies. These results were obtained with the [employer]ge 2200 System. Cardiolipin IgM values obtained with different manufacturers' assay methods may not be used interchangeably. Current interpretive data was last revised on 2016. Blood 08/19/2024 11:1 6 PM CDT 08/19/2024 11:32 PM CDT Shailesh Wong MD LAB BLOOD ORDERABLES Final Re sult [facility] [place] [address] * (ABNORMAL) Rheumatoid factor (08/19/2024 11:16 PM CDT) Rheumatoid factor, quant 21.0(H) 0.1 - 15.0 IUnits/mL Blood 08/19/2024 11:1 6 PM CDT 08/19/2024 11:32 PM CDT Shailesh Wong MD LAB BLOOD ORDERABLES Final Re sult Performing Organization Address [facility] Co de Phone Number [facility] [place] [address] * eGFR (08/19/2024 10:24 PM CDT) eGFR [...] ORDERABLES Keyona l Result Performing Organization Address [facility] Co de Phone Number [facility] [place] [address] * (ABNORMAL) Calcium, ionized (08/19/2024 10:24 PM CDT) [facility] Calcium, Ionized 4.47(L) 4.50 - 5.10 mg/dL Blood 08/19/2024 10:2 4 PM CDT 08/19/2024 10:38 PM CDT Shailesh Wong MD LAB BLOOD ORDERABLES Final Re sult Performing Organization Address [facility] Co de Phone Number [facility] [place] [address] * Vitamin D 25 hydroxy (08/19/2024 10:24 PM CDT) [facility] Vitamin D 25-OH 36 30 - 80 ng/mL Blood 08/19/2024 10:2 4 PM CDT 08/19/2024 10:53 PM CDT Shailesh Wong MD LAB BLOOD ORDERABLES Final Re sult Performing Organization Address [facility] [place] [address] * (ABNORMAL) CBC without differential (08/19/2024 10:24 PM CDT) [facility] WBC 7.8 3.8 - 9.9 K/cumm Hgb 10.0(L) 11.9 - 15.5 g/dL [facility] Hct 28.6(L) 35.6 - 45.5 % [facility] Plt 196 150 - 400 K/cumm [facility] MPV 9.6 9.1 - 12.3 fL [facility] RBC 3.04(L) 3.90 - 5.20 M/cumm [facility] MCV 94.1 81.3 - 96.4 fL [facility] MCH 32.9 27.1 - 33.3 pg [facility] MCHC 35.0 32.3 - 35.7 g/dL [facility] RDW CV 14.5 11.1 - 14.9 % [facility] RDW SD 49.3(H) 35.7 - 48.1 fL [facility] NRBC abs 0.00 0.00 - 0.01 K/cumm [facility] Blood 08/19/2024 10:2 4 PM CDT 08/19/2024 10:53 PM CDT us Mark Hernandez MD LAB BLOOD ORDERABLES Keyona l Result [facility] [place] [address] * (ABNORMAL) Basic metabolic panel (08/19/2024 10:24 PM CDT) Sodium 129(L) 135 - 145 mmol/L Potassium, pl 4.1 3.3 - 4.9 mmol/L [facility] Chloride 95(L) 97 - 110 mmol/L [facility] CO2 24 22 - 32 mmol/L [facility] Anion gap 10 2 - 15 mmol/L [facility] BUN 8 6 - 25 mg/dL [facility] Creatinine 0.76 0.60 - 1.10 mg/dL [facility] Glucose 184 70 - 199 mg/dL [facility] Comment: Interpretive Data Fasting glucose [...] 2022. Calcium 8.8 8.5 - 10.3 mg/dL [facility] Blood 08/19/2024 10:2 4 PM CDT 08/19/2024 10:53 PM CDT Mark Hernandez MD LAB BLOOD ORDERABLES Keyona l Result Performing Organization Address City/[facility]/ZIP Co de Phone Number [facility] [place] [place] [address] * POCT glucose (08/19/2024 9:51 PM CDT) Glucose, POC 181 70 - 199 mg/dL Blood 08/19/2024 9:51 PM CDT 08/19/2024 9:51 PM CDT Shailesh Wong MD LAB POCT ORDERABLES - DEVICE Final Result Performing Organization Address [facility] Co de Phone Number [facility] [place] [place] [address] * POCT glucose (08/19/2024 5:50 PM CDT) Glucose, POC 93 70 - 199 mg/dL Blood 08/19/2024 5:50 PM CDT 08/19/2024 5:50 PM CDT Shailesh Wong MD LAB POCT ORDERABLES - DEVICE Final Result Performing Organization Address [facility] Co de Phone Number [facility] [place] [place] [address] * US Head Neck Soft Tissue (08/19/2024 [...] Surgical pathology (08/19/2024 1:13 PM CDT) Tissue specimen (specimen) (Temporal artery, biopsy) 08/19/2024 1:13 PM CDT Narrative PATHOLOGY [facility] - 08/21/2024 10:24 PM CDT EPIC results best viewed via link to PDF [facility] Eleni Gardner [facility] [place] [address] Note to Patients: This report may contain [...] Gender: F : 1955 (Age: 69) Address: [address] [place] [id number] [facility] #: [id number] Taken:08/19/2024 Received:08/19/2024 Reported: 08/21/2024 Patient Type: [facility] Inpatient Service: Neurology Location: [facility] 0113 Physician(s): Gauri Patrick M.D. Vangie Travis MD Diagnosis: Artery, right [...] Surgical Pathology and Flow Cytometry Departments at [facility] as part of an ongoing training and quality manager program and in compliance with federally mandated [...] Surgical Pathology and Flow Cytometry Departments of [facility]. It has not been cleared or approved by the U. S. Food and Drug Administration. IMAGES AND SCANNED DOCUMENTS, IF INCLUDED, ONLY VIEWABLE IN PDF VERSION OF REPORT Ramesh Graham MD LAB PATHOLOGY ORDERABLES Final Result PATHOLOGY [facility] 3rd Floor [place], [place] [phone] * Surgical pathology (08/19/2024 12:05 PM CDT) Tissue specimen (specimen) (Skin, biopsy) 08/19/2024 12:05 PM CDT 08/19/2024 12:24 PM CDT Narrative PATHOLOGY [facility] - 08/21/2024 11:22 AM CDT EPIC results best viewed via link to PDF [facility] Eleni Gardner [facility] [place] [address] Note to Patients: This report may contain [...] Gender: F : 1955 (Age: 69) Address: [address] [place] [id number] Hospital #: [id number] Taken:08/19/2024 Received:08/19/2024 Reported: 08/21/2024 Patient Type: [facility] Inpatient Service: Neurology Location: [place] [address] Physician(s): MD Janna Winters M.D. Aaron John [...] Dermatopathology Center, Department of Pathology and Immunology, [facility], [address] [place] [address], [address], [place] [address] CLIA # [id number] Demetria Loco M.D. History: The patient is [...] Surgical Pathology and Flow Cytometry Departments at [facility] as part of an ongoing training and quality manager program and in compliance with federally mandated [...] Surgical Pathology and Flow Cytometry Departments of [facility]. It has not been cleared or approved by the U. S. Food and Drug Administration. IMAGES AND SCANNED DOCUMENTS, IF INCLUDED, ONLY VIEWABLE IN PDF VERSION OF REPORT Shailesh Wong MD LAB PATHOLOGY ORDERABLES Keyona casey Result PATHOLOGY [facility] 3rd Floor [place], [place] [phone] * US VEIN DUPLEX LOWER EXTREMITY RIGHT LIMITED, UNILATERAL (08/19/2024 10:31 AM CDT) Anatomical Region Laterality Modality Vascular Right Ultrasound 08/19/2024 10:2 0 AM CDT Narrative 08/19/2024 6:52 PM CDT [facility] - Department of Vascular Surgery, Vascular Laboratory [address] [place] [address] Lower Extremity Venous Ultrasound Report Patient Name: TOÑA YO : 1955 (69y 1m) Study Date: 08/19/2024 10:20:09 AM Gender: F Tech: AL Location: [id number] Ref Provider: SHAILESH WONG Quality: Adequate Order [...] Leg, Right, query DVT - FINDINGS: Performing Redevelopment Specialist: Janna Cruz RVT. Right: Venous Doppler signals [...] above. Electronically Signed By: Tommy Way MD [facility] [phone] 08/19/2024 6:17:28 PM CDT Procedure Note Tommy Way MD - 08/19/2024 [facility] - Department of Vascular Surgery,Vascular Laboratory [address] [place] [address] Lower Extremity Venous Ultrasound Report Patient Name: TOÑA YO : 1955 (69y 1m) Study Date: 08/19/2024 10:20:09 AM Gender: F Tech: AK Location: [id number] Ref Provider: SHAILESH WONG Quality: Adequate Order Provider: SHAILESH WONG PROCEDURES: Vascular Report: Venous Duplex imaging was performed in the right lower extremity. Thecommon femoral, femoral, popliteal, posterior tibial, peroneal veins were evaluated forpatency, spontaneity and phasicity with Doppler, compression and augmentationmaneuvers. Great saphenous vein proximal at the junction was evaluated with compressionmaneuvers. INDICATIONS: Pain in Leg, Right, query DVT - FINDINGS: Performing Redevelopment Specialist: Janna Cruz RVT. Right: Venous Doppler signals [...] above. Electronically Signed By: Tommy Way MD [facility] [phone] 08/19/2024 6:17:28 PM CDT us Shailesh Wogn MD IM US PROCEDURES Final Resul t [...] FDG-PET/CT IMAGING DATE OF STUDY: 08/19/2024 SCANNER: [email or web address] (NV1). This is a high-resolution scanner, which [...] obtained. The study was interpreted on the [employer] workstation. The mean liver SUV (reported for quality improvement specialist purposes) is 2.2. The total scanned area [...] from 02/28/2024. Left apical scarring. Procedure Note BayronConnoran, - 08/19/2024 EXAMINATION: TUMOR FDG-PET/CT IMAGING DATE OF STUDY: 08/19/2024 SCANNER: [facility] [employer]box (NV1). This is a high-resolution scanner, which [...] obtained. The study was interpreted on the [employer] workstation. The mean liver SUV (reported for quality improvement specialist purposes) is 2.2. The total scanned area [...] 6:41 AM CDT 08/19/2024 7:32 AM CDT Shailesh Wong MD LAB BLOOD ORDERABLES Final Re sult [facility] [place] [address] * (ABNORMAL) Basic metabolic panel (08/19/2024 6:41 AM CDT) Sodium 130(L) 135 - 145 mmol/L Potassium, pl 3.9 3.3 - 4.9 mmol/L [facility] Chloride 96(L) 97 - 110 mmol/L [facility] CO2 28 22 - 32 mmol/L [facility] Anion gap 6 2 - 15 mmol/L [facility] BUN 8 6 - 25 mg/dL [facility] Creatinine 0.68 0.60 - 1.10 mg/dL [facility] Glucose 98 70 - 199 mg/dL [facility] Comment: Interpretive Data Fasting glucose [...] 2022. Calcium 8.8 8.5 - 10.3 mg/dL [facility] Blood 08/19/2024 6:41 AM CDT 08/19/2024 6:53 AM CDT Shailesh Wong MD LAB BLOOD ORDERABLES Final Re sult [facility] [place] [address] * Sodium, urine, random (08/19/2024 1:39 AM CDT) Sodium, ur <20 mmol/L Comment: Repeated and Verified Interpretive Data No reference range established. Current interpretive data was last revised 2018. Urine 08/19/2024 1:39 AM CDT 08/19/2024 2:38 AM CDT Shailesh Wong MD LAB URINE ORDERABLES Final Re sult [facility] [place] [address] * Osmolality, urine (08/19/2024 1:39 AM CDT) Osmo, ur 187 mOsm/kg Urine 08/19/2024 1:39 AM CDT 08/19/2024 2:38 AM CDT us Shailesh Wong MD LAB URINE ORDERABLES Final Re sult Performing Organization Address [facility] Co de Phone Number [facility] [place] [address] * Neuromuscular Testing (08/19/2024 12:00 AM CDT) Serum 08/19/2024 08/20/2024 2:1 3 PM CDT Narrative 08/31/2024 1:07 PM CDT Please click on the PDF link to view the report containing this result aMrk Hernandez MD LAB PATHOLOGY ORDERABLES Final Result * Urinalysis reflex to microscopic and culture Urine (08/18/2024 10:30 PM CDT) Color, ur Straw Yellow Clarity, ur Clear Clear [facility] Specific gravity, ur 1.012 1.003 - 1.030 [facility] pH, urine 6.5 [facility] Comment: Interpretive Data U rine pH is affected by diet, medications, systemic acid-base disturbances, and renal tubular function. pH may affect urinary stone formation. For example, urine pH below 6.0 may help reduce the tendency for calcium phosphate stones and pH greater than 6.0 may reduce the tendency for uric acid stone formation. Source: [employer] Current Interpretive Data was last revised on 2017 Protein, ur ql Negative Negative [facility] Glucose, ur ql Negative Negative [facility] Ketones, ur Negative Negative [facility] Bilirubin, ur Negative Negative [facility] Blood, ur Negative Negative [facility] Urobilinogen, ur <2.0 <2.0 mg/dL [facility] Nitrite, ur Negative Negative [facility] Leukocyte esterase, ur Negative Negative [facility] UA reflex comment Reflex conditions for microscopic UA and culture not met. [facility] Urine 08/18/2024 10:3 0 PM CDT 08/18/2024 11:03 PM CDT Shailesh Wong MD LAB MICROBIOLOGY - GENERAL OR DERABLES Final Result Performing Organization Address [facility] Co de Phone Number [facility] [place] [address] * eGFR (08/18/2024 10:01 PM CDT) eGFR [...] ORDERABLES Keyona l Result Performing Organization Address City/[facility]/ZIP Co de Phone Number [facility] [place] [address] * Critical Result Callback Chemistry (08/18/2024 10:01 PM CDT) [facility] Date Notified [id number] Time Notified 5 [facility] TestName Levy Bld [facility] Called/Read Back Ashlee Hammonds [facility] Credentials RN [facility] Called By JLReinier [facility] Blood 08/18/2024 10:0 1 PM CDT 08/18/2024 10:12 PM CDT Joby Chaudhry MD LAB BLOOD ORDERABLES Final Result Performing Organization Address City/State/[facility] Co de Phone Number [facility] [place] [address] * Respiratory pathogen panel Nasopharyngeal (08/18/2024 10:01 PM CDT) [facility] Influenza A RNA Not Detected Not Detected Influenza B RNA Not Detected Not Detected [facility] RSV RNA Not Detected Not Detected [facility] COVID-19 RNA Not Detected Not Detected [facility] Coronavirus 229E RNA Not Detected Not Detected [facility] Coronavirus HKU1 RNA Not Detected Not Detected [facility] Coronavirus NL63 RNA Not Detected Not Detected [facility] Coronavirus OC43 RNA Not Detected Not Detected [facility] Adenovirus DNA Not Detected Not Detected [facility] Metapneumovirus RNA Not Detected Not Detected [facility] Rhinovirus/Enterov irus RNA Not Detected Not Detected [facility] Parainfluenza 1 RNA Not Detected Not Detected [facility] Parainfluenza 2 RNA Not Detected Not Detected [facility] Parainfluenza 3 RNA Not Detected Not Detected [facility] Parainfluenza 4 RNA Not Detected Not Detected [facility] B. pertussis DNA Not Detected Not Detected [facility] B. parapertussis DNA Not Detected Not Detected [facility] C. pneumoniae DNA Not Detected Not Detected [facility] M. pneumoniae DNA Not Detected Not Detected [facility] Nasopharyngeal 08/18/2024 10 :01 PM CDT 08/18/2024 10:19 PM CDT Iván PARADA [facility] - 08/18/2024 11:15 PM CDT Is the Patient experiencing symptoms consistent with COVID?->No Surveillance testing for transplant patient?->No Interpretive Data The [employer] FilmArray Respiratory Panel (RP2.1) assay is a [...] assay has FDA clearance for testing of PULP GRINDER FEEDER swabs. The performance of additional specimen types has been assessed by the performing laboratory. The performance characteristics of this assay have been determined by [facility] Molecular Infectious Disease Laboratory. Current interpretive data was last revised on 22. us Shailesh Wong MD LAB MICROBIOLOGY - GENERAL OR DERABLES Final Result Performing Organization Address City/[facility]/ZIP Co de Phone Number [facility] [place] [address] * (ABNORMAL) CBC without differential (08/18/2024 10:01 PM CDT) [facility] WBC 9.4 3.8 - 9.9 K/cumm Hgb 10.2(L) 11.9 - 15.5 g/dL [facility] Hct 29.7(L) 35.6 - 45.5 % [facility] Plt 183 150 - 400 K/cumm [facility] MPV 9.1 9.1 - 12.3 fL [facility] RBC 3.17(L) 3.90 - 5.20 M/cumm [facility] MCV 93.7 81.3 - 96.4 fL [facility] MCH 32.2 27.1 - 33.3 pg [facility] MCHC 34.3 32.3 - 35.7 g/dL [facility] RDW CV 14.3 11.1 - 14.9 % [facility] RDW SD 48.8(H) 35.7 - 48.1 fL [facility] NRBC abs 0.00 0.00 - 0.01 K/cumm [facility] Blood 08/18/2024 10:0 1 PM CDT 08/18/2024 10:12 PM CDT us Mark Hernandez MD LAB BLOOD ORDERABLES Keyona l Result Performing Organization Address City/[facility]/ZIP Co de Phone Number [facility] [place] [address] * (ABNORMAL) Osmolality, blood (08/18/2024 10:01 PM CDT) Osmo 258(C) 275 - 300 mOsm/kg Blood 08/18/2024 10:0 1 PM CDT 08/18/2024 10:12 PM CDT Joby Chaudhry MD LAB BLOOD ORDERABLES Final Result Performing Organization Address [facility] Co de Phone Number [facility] [place] [address] * (ABNORMAL) Basic metabolic panel (08/18/2024 10:01 PM CDT) [facility] Sodium 127(L) 135 - 145 mmol/L Potassium, pl 3.9 3.3 - 4.9 mmol/L [facility] Chloride 91(L) 97 - 110 mmol/L [facility] CO2 27 22 - 32 mmol/L [facility] Anion gap 9 2 - 15 mmol/L [facility] BUN 10 6 - 25 mg/dL [facility] Creatinine 0.73 0.60 - 1.10 mg/dL [facility] Glucose 99 70 - 199 mg/dL [facility] Comment: Interpretive Data Fasting glucose [...] 2022. Calcium 9.1 8.5 - 10.3 mg/dL [facility] Blood 08/18/2024 10:0 1 PM CDT 08/18/2024 10:12 PM CDT us Mark Hernandez MD LAB BLOOD ORDERABLES Keyona l Result Performing Organization Address [facility] Co de Phone Number [facility] [place] [address] * XR Foot Right 3 or More [...] CDT 08/18/2024 5:07 PM CDT Narrative [facility] - 08/23/2024 7:01 AM CDT Collection->Peripheral [...] performance characteristics have been verified by the [facility] Microbiology Laboratory. For questions about this culture, contact the Microbiology Laboratory at [phone]. Interpretive data was last revised on 24. us Shailesh Wong MD LAB MICROBIOLOGY - GENERAL OR DERABLES Final Result [facility] [place] [address] * Blood culture Blood Arm, right (08/18/2024 3:46 PM CDT) Report Final Report: No growth Blood (Arm, right) 08/18/2024 3:46 PM CDT 08/18/2024 5:07 PM CDT Narrative [facility] - 08/23/2024 7:01 AM CDT Collection->Peripheral [...] performance characteristics have been verified by the [facility] Microbiology Laboratory. For questions about this culture, contact the Microbiology Laboratory at [phone]. Interpretive data was last revised on 24. Shailesh Wong MD LAB MICROBIOLOGY - GENERAL OR DERABLES Final Result Performing Organization Address City/[facility] Co de Phone Number [facility] [place] [address] * Flow Leukemia/Lymphoma CSF (08/18/2024 3:24 PM CDT) Mancuso Stain Test Completed Leukemia/Lymp mati Result See separate Surgical Pathology report. [facility] CSF 08/18/2024 3:24 PM CDT 08/18/2024 4:45 PM CDT Shailesh Wong MD LAB PATHOLOGY ORDERABLES Keyona l Result Performing Organization Address [facility] Co de Phone Number [facility] Department [place] [address] * Surgical pathology (08/18/2024 3:23 PM CDT) Cerebrospinal Fluid (Cytology) 08/18/2024 3:23 PM CDT 08/18/2024 4:47 PM CDT Narrative 08/19/2024 1:02 PM CDT EPIC results best viewed via link to PDF [facility] Eleni Gardner Laboratory [place] [address] Note to Patients: This report may contain [...] Gender: F : 1955 (Age: 69) Address: [address] [place] [id number] Hospital #: [id number] Taken:08/18/2024 Received:08/18/2024 Reported: 08/19/2024 Patient Type: [facility] Inpatient Service: Emergency Medicine Location: [facility] OR POD 3 Physician(s): Shailesh Wong [...] cytometry specimen was examined for internal quality improvement specialist purposes. Flow cytometry was performed using antibodies to the following cellular antigens: CD45, CD34, CD19, CD20, [place], Lambda, CD10, CD5, CD200, CD38. Total antigens [...] Surgical Pathology and Flow Cytometry Departments at [facility] as part of an ongoing training and quality manager program and in compliance with federally mandated [...] Surgical Pathology and Flow Cytometry Departments of [facility]. It has not been cleared or [...] See scanned result in Medical Record. [facility] CSF 08/18/2024 3:08 PM CDT 08/21/2024 1:27 PM CDT Mark Hernandez MD LAB BLOOD ORDERABLES Keyona l Result [facility] [place] [address] * Cell count w/reflex diff, CSF (08/18/2024 3:07 PM CDT) Tube Number, CSF Tube 4 Color, CSF Colorless Colorless [facility] Clarity, CSF Clear Clear [facility] Xanthochromia , CSF Absent Absent [facility] Nucleated cells, CSF 0 0 - 5 /cumm [facility] RBC, CSF 0 0 - 0 /cumm [facility] CSF 08/18/2024 3:07 PM CDT 08/18/2024 3:47 PM CDT us Shailesh Wong MD LAB BODY FLUIDS AND STOOLS OR DERABLES Final Result Performing Organization Address [facility] de Phone Number [facility] [place] [address] * (ABNORMAL) Cell count w/reflex diff, CSF (08/18/2024 3:07 PM CDT) [facility] Tube Number, CSF Tube 1 Color, CSF Colorless Colorless [facility] Clarity, CSF Clear Clear [facility] Xanthochromia , CSF Absent Absent [facility] Nucleated cells, CSF 4 0 - 5 /cumm [facility] RBC, CSF 51(H) 0 - 0 /cumm [facility] CSF 08/18/2024 3:07 PM CDT 08/18/2024 3:47 PM CDT Shailesh Wong MD LAB BODY FLUIDS AND STOOLS OR DERABLES Final Result Performing Organization Address [facility] de Phone Number [facility] [place] [address] * Flow Leukemia/Lymphoma CSF (08/18/2024 3:07 PM CDT) [facility] Leukemia/Lymph elly Result See comment Comment:Credited, duplicate test. CSF 08/18/2024 3:07 PM CDT 08/19/2024 4:17 PM CDT Shailesh Wong MD LAB PATHOLOGY ORDERABLES Keyona l Result Performing Organization Address [facility] de Phone Number [facility] [place] [employer] [place] [address] * Miscellaneous Test Sendout Chemistry (08/18/2024 3:07 PM CDT) [facility] Test name Interleukin-6 (CSF) Result 1 Specimen Type: CSF Result: See scanned result in Medical Record. [facility] CSF 08/18/2024 3:07 PM CDT 08/22/2024 4:34 PM CDT Mark Hernandez MD LAB BLOOD ORDERABLES Keyona l Result Performing Organization Address City/[facility]/ZIP Co de Phone Number [facility] Department [place] [address] * Miscellaneous Test Sendout Chemistry (08/18/2024 3:07 PM CDT) Test name Varicella-Zos ter Virus Antibody, IgM by MARLY, CSF Result 1 Specimen Type: CSF Result: See scanned result in Medical Record. [facility] CSF 08/18/2024 3:07 PM CDT 08/21/2024 1:26 PM CDT Mark Hernandez MD LAB BLOOD ORDERABLES Keyona l Result Performing Organization Address [facility] Co de Phone Number [facility] [place] [address] * Mycology (fungal) culture and Cryptococcus antigen, CSF CSF (08/18/2024 3:07 PM CDT) Report Final Report: No growth of fungus CSF 08/18/2024 3:07 PM CDT 08/18/2024 4:16 PM CDT Narrative [facility] - 09/15/2024 6:57 AM CDT The Cryptococcal Antigen is resulted under a separate test. Please see C ryptococcal Antigen, CSF for result. Testing performed by [facility] Microbiology Laboratory ([phone]). Shailesh Wong MD LAB MICROBIOLOGY - GENERAL OR DERABLES Final Result Performing Organization Address City/[facility] Co de Phone Number [facility] Department [place] [address] * Oligoclonal banding (08/18/2024 3:07 PM CDT) Oligoclonal bands, CSF 1 bands [place] [facility] Oligoclonal bands 1 bands [facility] Oligoclonal bands, interp 0 <2 bands [facility] Comment: The oligoclonal band assay detected no unique IgG bands in the CSF. This is a negative result. Test Performed by: [place] [address] Business And Services Instructor: Dawit Avendano Ph.D.; CLIA# [id number] Blood/Cerebrospi nal fluid 08/18/2024 3:07 PM CDT 08/18/2024 4:15 PM CDT Shailesh Wong MD LAB BLOOD ORDERABLES Final Re sult [facility] [place] [address] [facility] Lab * (ABNORMAL) IgG index, CSF and blood (08/18/2024 3:07 PM CDT) Immunoglobulin G 1760(H) 767 - 1590 mg/dL [facility] Lab Albumin 3400(L) 3500 - 5000 mg/dL [facility] Comment: Test Performed [place]: [place] [address] [employer] Instructor: Dawit Avendano Ph.D.; CLIA# [id number] Test Performed by: [place] [address] [employer] And Services Instructor: Dawit Avendano Ph.D.; CLIA# [id number] IgG, CSF 3.5 <=8.1 mg/dL [facility] Albumin, CSF 14.9 <=27.0 mg/dL [facility] CSF IgG/albumin ratio, CSF 0.23(H) <=0.[address] [facility] IgG/Albumin Ratio, Serum 0.52(H) <=0.40 [facility] IgG index, CSF 0.44 <=0.70 [facility] IgG synthesis rate, CSF 0.00 <=12 mg/24H [facility] Albumin quotient, CSF/Serum 4.38 <=14 [facility] Blood/Cerebrospi nal fluid 08/18/2024 3:07 PM CDT 08/18/2024 4:15 PM CDT Shailesh Wong MD LAB BODY FLUIDS AND STOOLS OR DERABLES Final Result Performing Organization Address [facility] de Phone Number [facility] [place] [address] [facility] * Cryptococcal antigen, CSF CSF (08/18/2024 3:07 PM CDT) [facility] Cryptococcal Antigen Negative Negative Comment: The cryptococcal [...] OR DERABLES Final Result Performing Organization Address [facility] Co de Phone Number [facility] [place] [address] * Bacterial culture and gram stain, CSF CSF (08/18/2024 3:07 PM CDT) [facility] Direct Specimen Exam Stain: Cytospin Gram stain shows: No polymorphonuclear leukocytes seen. No organisms seen. Report Final Report: No growth [facility] CSF 08/18/2024 3:07 PM CDT 08/18/2024 4:16 PM CDT Narrative [facility] - 08/23/2024 11:12 AM CDT Testing performed by [facility]biology [facility] ([phone]). Shailesh Wong MD LAB MICROBIOLOGY - GENERAL OR DERABLES Final Result Performing Organization Address [facility] de Phone Number [facility] [place] [address] * Protein, total, CSF (08/18/2024 3:07 PM CDT) Protein, CSF 32 5 - 45 mg/dL Comment:Cells present. Resul ts may be falsely elevated. CSF 08/18/2024 3:07 PM CDT 08/18/2024 4:00 PM CDT Shailesh Wong MD LAB BODY FLUIDS AND STOOLS OR DERABLES Final Result Performing Organization Address [facility] de Phone Number [facility] [place] [address] * Glucose, CSF (08/18/2024 3:07 PM CDT) [...] OR DERABLES Final Result Performing Organization Address [facility] de Phone Number [facility] [place] [address] * Complement, total (08/18/2024 3:07 PM CDT) Pathologist [facility] Complement hemolytic 63 30 - 75 units/mL [place] [facility] Comment: Test Performed by: [facility] [place] [address] [employer] And Services Instructor: Dawit Avendano Ph.D.; CLIA# [id number] Blood 08/18/2024 3:07 PM CDT 08/18/2024 4:16 PM CDT Shailesh Wong MD LAB BLOOD ORDERABLES Final Re sult Performing Organization Address [facility] Co de Phone Number [facility] [place] [address] [place] [facility] * (ABNORMAL) C2 complement (08/18/2024 3:07 PM CDT) [facility] Complement C2, functional 62(H) 25 - 47 units/mL [place] [facility] Comment: ADDITIONAL INFORMATION This test was developed and its performance characteristics determined by [facility] in a manner consistent with CLIA requirements. This test has not been cleared or approved by the U.S. Food and Drug Administration. Complement C2 See Footnote [facility] Comment: RESULT: Results are not consistent with homozygous deficiency. Test Performed by: [facility] [place] [id number] [employer] Instructor: Dawit Avendano Ph.D.; CLIA# [id number] Blood 08/18/2024 3:07 PM CDT 08/18/2024 4:15 PM CDT Shailesh Wong MD LAB BLOOD ORDERABLES Final Re sult Performing Organization Address [facility]/ZIP Co de Phone Number [facility] [place] [address] [facility] Lab * T-SPOT.TB Blood (08/18/2024 12:57 PM CDT) [facility] T-SPOT.TB Negative SeeBelow Comment: Normal Value: Negative [...] test. T-SPOT.TB Panel A Spot Count 0 [facility] T-SPOT.TB Panel B Spot Count 0 [facility] T-SPOT.TB Negative Control Passed [facility] T-SPOT.TB Positive Control Passed [facility] Comment: Test Performed at: [employer] [facility] [employer] [address] [place] [id number] GLORIA WAGONER,PHD Blood 08/18/2024 12:5 7 PM CDT 08/18/2024 1:08 PM CDT us Shailesh Wong MD LAB MICROBIOLOGY - GENERAL OR DERABLES Final Result [facility] [place] [address] * (ABNORMAL) Immunoglobulin IgG subclasses (08/18/2024 12:57 PM CDT) [facility] IgG 1721(H) 767 - 1590 mg/dL [place] [facility] IgG, fraction 1 987(H) 341 - 894 mg/dL [facility] IgG, fraction 2 457 171 - 632 mg/dL [facility] IgG, fraction 3 103.5 18.4 - 106.0 mg/dL [facility] IgG, fraction 4 84.0 2.4 - 121.0 mg/dL [facility] Comment: Test Performed by: [facility] [address] [place] [address] Business And Services Instructor: Dawit Avendano Ph.D.; CLIA# [id number] Blood 08/18/2024 12:5 7 PM CDT 08/18/2024 4:15 PM CDT Shailesh Wong MD LAB BLOOD ORDERABLES Final Re sult Performing Organization Address [facility] Co de Phone Number [facility] [place] [place] [address] [facility] ref [facility] * BRANDT ab eval w/reflex (08/18/2024 12:57 PM CDT) Pathologist [facility] BRANDT ab Negative Negative Comment: Interpretive Data Positive Screens will be reflexed to specific testing for Antibodies against the following antigens: Milady-1 Ab, INTERNAL CONTROLS MANAGER Ab, Scl-70 Ab, Kelley Ab, SS-A/Ro Ab, and SS- B/La Ab. Further testing for dsDNA, Centromere, or Ribosomal P antibodies is suggested in patient with a positive screen and negative specific antibodies. Current interpretive data was last revised on 2022. Blood 08/18/2024 12:5 7 PM CDT 08/18/2024 1:08 PM CDT Shailesh Wong MD LAB BLOOD ORDERABLES Final Re sult Performing Organization Address [facility] Co de Phone Number [facility] [place] [address] * (ABNORMAL) Immune competence (08/18/2024 12:57 PM CDT) CD3 pct 76 60 - 88 % CD3 Absolute 802 661 - 1,963 cells/mcL [facility] CD4 pct 61 31 - 64 % [facility] CD4 Absolute 627 365 - 1,294 cells/mcL [facility] CD8 pct 16 12 - 40 % [facility] CD8 Absolute 162(L) 187 - 781 cells/mcL [facility] CD19 pct 23 6 - 25 % [facility] CD19 Absolute 245 86 - 488 cells/mcL [facility] [id number] pct 1(L) 5 - 25 % [facility] [id number] Absolute <35(L) 76 - 467 cells/mcL [facility] Comment:Verified CD4/CD8 ratio 3.8 0.9 - 4.4 [facility] Blood 08/18/2024 12:5 7 PM CDT 08/18/2024 1:08 PM CDT Shailesh Wong MD LAB BLOOD ORDERABLES Final Re sult Performing Organization Address [facility] de Phone Number [facility] [place] [address] * Angiotensin converting enzyme (08/18/2024 12:57 PM CDT) MONICA 24 10 - 55 Units/L Blood 08/18/2024 12:5 7 PM CDT 08/18/2024 1:08 PM CDT Shailesh Wong MD LAB BLOOD ORDERABLES Final Re sult Performing Organization Address [facility] de Phone Number [facility] [place] [address] * (ABNORMAL) IgA (08/18/2024 12:57 PM CDT) Immunoglobulin A 492(H) 70 - 400 mg/dL Blood 08/18/2024 12:5 7 PM CDT 08/18/2024 1:08 PM CDT Shailesh oWng MD LAB BLOOD ORDERABLES Final Re sult Performing Organization Address [facility]/ZIP Co de Phone Number [facility] [place] [address] * IgM (08/18/2024 12:57 PM CDT) Immunoglobulin M 41 40 - 230 mg/dL Blood 08/18/2024 12:5 7 PM CDT 08/18/2024 1:08 PM CDT us Shailesh Wong MD LAB BLOOD ORDERABLES Final Re sult [facility] [place] [address] * Cytology (08/18/2024 12:35 PM CDT) Cerebrospinal Fluid (Cytology) 08/18/2024 12:35 PM CDT 08/18/2024 5:35 PM CDT Narrative 08/19/2024 5:20 PM CDT EPIC results best viewed via link to PDF [facility] Eleni Gardner [facility] [place] [address] Note to Patients: This report may contain [...] Gender: F : 1955 (Age: 69) Address: [address] [place] [id number] Hospital #: [id number] Taken:08/18/2024 Received:08/18/2024 Reported: 08/19/2024 Patient Type: [facility] Inpatient Service: Neurology Location: [facility] 0113 Physician(s): Johnson Rico M.D. Alison Perez M.D. Shailesh Wong MD FINAL DIAGNOSIS A. Cerebrospinal fluid: - Negative for malignancy hrk/08/19/2024 17:20 By this signature, I attest that the above diagnosis is based upon my personal examination of the slides(and/or other material indicated in the diagnosis). Abigail Gold M.D. Report Electronically Reviewed and Signed Out By Abigail Gold M.D. 08/19/2024 17:20:44 Vitor WRachel Pike MS, CT(ASCP)PA Gross Description A. Cerebrospinal [...] Surgical Pathology and Flow Cytometry Departments at [facility] as part of an ongoing training and quality manager program and in compliance with federally mandated [...] Surgical Pathology and Flow Cytometry Departments of [facility]. It has not been cleared or approved by the U. S. Food and Drug Administration. Johnson Rico MD LAB CYTOLOGY ORDERABLES Final Result * C4 complement (08/18/2024 10:33 AM CDT) Complement C4 36.0 10.0 - 40.0 mg/dL Blood 08/18/2024 10:3 3 AM CDT 08/18/2024 10:48 AM CDT Shailesh Wong MD LAB BLOOD ORDERABLES Final Re sult Performing Organization Address City/[facility] Co de Phone Number [facility] [place] [address] * Aldolase (08/18/2024 10:33 AM CDT) Aldolase 7.2 0.1 - 8.0 Units/L Blood 08/18/2024 10:3 3 AM CDT 08/18/2024 10:48 AM CDT Shailesh Wong MD LAB BLOOD ORDERABLES Final Re sult Performing Organization Address [facility] Co de Phone Number [facility] [place] [employer] [place] [address] * C3 complement (08/18/2024 10:33 AM CDT) Complement C3 151.0 90.0 - 180.0 mg/dL Blood 08/18/2024 10:3 3 AM CDT 08/18/2024 10:48 AM CDT Shailesh Wong MD LAB BLOOD ORDERABLES Final Re sult Performing Organization Address City/[facility] Co de Phone Number [facility] [place] [place] [address] * Creatine kinase (CK), total (08/18/2024 10:33 AM CDT) CK 52 30 - 200 Units/L Blood 08/18/2024 10:3 3 AM CDT 08/18/2024 10:48 AM CDT Shailesh Wong MD LAB BLOOD ORDERABLES Final Re sult Performing Organization Address [facility] Co de Phone Number [facility] [place] [place] [address] * Beta 2 transferrin, body fluid (08/18/2024 5:25 AM CDT) Beta-2 transferrin, fld Negative [facility] Comment: REFERENCE VALUE Negative, no beta-2 transferrin (spinal fluid) detected. ADDITIONAL INFORMATION This test was developed and its performance characteristics determined by [facility] in a manner consistent with CLIA requirements. This test has not been cleared or approved by the U.S. Food and Drug Administration. Test Performed by: [facility] [place] [address] Business And Services Instructor: Dawit Avendano Ph.D.; CLIA# [id number] Fluid 08/18/2024 5:25 AM CDT 08/18/2024 7:30 AM CDT us Shailesh Wong MD LAB BODY FLUIDS AND STOOLS OR DERABLES Final Result Performing Organization Address [facility] Co de Phone Number [facility] [place] [address] [facility] ref [facility] * [place] CRITICAL CARE ILL/INJURED PATIENT INIT 30-74 MIN [...] - GENERAL O RDERABLES Final Result [facility] [place] [address] * (ABNORMAL) JEAN CLAUDE ab ql w/rflx [...] on 2020. JEAN CLAUDE, quant 1:640 titer [facility] JEAN CLAUDE, interp Speckled(A) [facility] Blood 08/17/2024 8:34 PM CDT 08/17/2024 8:55 PM CDT us Malika Mishra MD LAB BLOOD ORDERABLES Final R esult Performing Organization Address City/[facility] Co de Phone Number [facility] [place] [address] * PR3 - proteinase 3, Ab (08/17/2024 8:34 PM CDT) Proteinase 3 ab <0.2 <=0.9 Ab Index Comment: Interpretive Data Negative: <1 Ab Index Positive: > or = 1 Ab Index Current interpretive data was last revised on 2016. Blood 08/17/2024 8:34 PM CDT 08/17/2024 8:55 PM CDT us Malika Mishra MD LAB BLOOD ORDERABLES Final R esult Performing Organization Address City/[facility] Co de Phone Number [facility] [place] [address] * MPO - myeloperoxidase antibody (08/17/2024 8:34 PM CDT) Myeloperoxidase ab <0.2 <=0.9 Ab Index Comment: Interpretive Data Negative: <1 Ab Index Positive: > or = 1 Ab Index Current interpretive data was last revised on 2016. Blood 08/17/2024 8:34 PM CDT 08/17/2024 8:55 PM CDT us Malika Mishra MD LAB BLOOD ORDERABLES Final R esult Performing Organization Address [facility] Co de Phone Number [facility] [place] [address] * HIV 1/2 Antibody plus p24 Antigen Blood (08/17/2024 8:34 PM CDT) Pathologist [facility] [place] HIV 1/2 ab + p24 ag Nonreactive [...] O RDERABLES Final Result Performing Organization Address [facility] [place] [address] * (ABNORMAL) Anti-Neutrophilic Cytoplasmic Antibody (ANCA) with Reflex to MPO and PR3 Abs (58:34 PM CDT) Pathologist [facility] ANCA Indetermi debora(A) Negative Comment:Indeterminate for P- ANCA - Results by antigen specific immunoassay (MPO & PR3) to follow. May indicate ulcerative colitis or Crohn's disease. Blood 08/17/2024 8:34 PM CDT 08/17/2024 8:55 PM CDT us Malika Mishra MD LAB BLOOD ORDERABLES Final R esult Performing Organization Address [facility] Co de Phone Number [facility] [place] [address] * Methylmalonic acid, serum (08/17/2024 8:34 PM CDT) Pathologist [facility] MMA 0.11 <=0.40 nmol/mL [facility] Comment: ADDITIONAL INFORMATION This test was developed and its performance characteristics determined by [facility] in a manner consistent with CLIA requirements. This test has not been cleared or approved by the U.S. Food and Drug Administration. Test Performed by: [address] [address] Business And Services Instructor: Dawit Avendano Ph.D.; CLIA# [id number] Blood 08/17/2024 8:34 PM CDT 08/17/2024 8:46 PM CDT Malika Mishra MD LAB BLOOD ORDERABLES Final R esult Performing Organization Address [facility] Co de Phone Number [facility] [place] [address] [facility] * RPR Blood (08/17/2024 8:34 PM CDT) [facility] RPR Nonreactive Nonreactive Blood 08/17/2024 8:34 PM CDT 08/17/2024 8:55 PM CDT Malika Mishra MD LAB MICROBIOLOGY - GENERAL O RDERABLES Final Result Performing Organization Address [facility] de Phone Number [facility] [place] [address] * Vitamin B1 (08/17/2024 8:34 PM CDT) [facility] Thiamine (Vit B1) 125 70 - 180 nmol/L Jorge ref Lab Comment: ADDITIONAL INFORMATION This test was developed and its performance characteristics determined by [facility] in a manner consistent with CLIA requirements. This test has not been cleared or approved by the U.S. Food and Drug Administration. Test Performed by: [facility] - [facility] [address] [place] [address] Business And Services Instructor: Dawit Avendano Ph.D.; CLIA# [id number] Blood 08/17/2024 8:34 PM CDT 08/17/2024 8:46 PM CDT us Malika Mishra MD LAB BLOOD ORDERABLES Final R esult Performing Organization Address City/[facility]/ZIP Co de Phone Number [facility] [place] [employer] [place] [address] Jorge ref Lab * Homocysteine (08/17/2024 8:34 PM CDT) Homocysteine 8.5 0.0 - 15.0 mcmol/L Blood 08/17/2024 8:34 PM CDT 08/17/2024 8:55 PM CDT us Malika Mishra MD LAB BLOOD ORDERABLES Final R esult Performing Organization Address City/[facility]/ZIP Co de Phone Number [facility] [place] [employer] [place] [address] * Folate (08/17/2024 8:34 PM CDT) Folic acid >20.0 >=5.0 ng/mL Blood 08/17/2024 8:34 PM CDT 08/17/2024 8:55 PM CDT Malika Mishra MD LAB BLOOD ORDERABLES Final R esult [facility] [place] [place] [address] * (ABNORMAL) Ferritin (08/17/2024 8:34 PM CDT) Ferritin 310(H) 13 - 150 ng/mL Blood 08/17/2024 8:34 PM CDT 08/17/2024 8:55 PM CDT us Mark Hernandez MD LAB BLOOD ORDERABLES Keyona l Result Performing Organization Address [facility] Co de Phone Number [facility] [place] [address] * Vitamin B12 (08/17/2024 8:34 PM CDT) Vitamin B12 657 230 - 1,250 pg/mL Blood 08/17/2024 8:34 PM CDT 08/17/2024 8:55 PM CDT us Malika Mishra MD LAB BLOOD ORDERABLES Final R esult Performing Organization Address [facility] de Phone Number [facility] [place] [address] * MRI Brain MRA Head MRA Neck [...] postcontrast MRA (series 35). Dictated by: César Herndier, D.O. The radiology attending physician has personally [...] 3. Magnetic resonance angiography (MRA) of the zlabza-bx-Zemwtd without and with contrast 4. Magnetic resonance [...] optic nerves. Magnetic resonance angiography of the eebrhr-mb-Jqwmls was performed using a separate data acquisition with a non-contrast ucgk-dk-qcmiif technique and a post-contrast technique to produce axial thin-slice source images. These images were then used to generate maximum intensity projection (MIP) images. Magnetic resonance angiography of the neck was performed using a separate data acquisition with a non-contrast zkzq-oy-muuooq technique and a post-contrast technique to produce [...] 3. Magnetic resonance angiography (MRA) of the nxdlsg-dr-Kwqmar without and with contrast 4. Magnetic resonance [...] optic nerves. Magnetic resonance angiography of the jitgjn-yo-Vwfobt was performed using a separate data acquisition with a non-contrast rwlm-qp-gubjbv technique and a post-contrast technique to produce axial thin-slice source images. These images were then used to generate maximum intensity projection (MIP) images. Magnetic resonance angiography of the neck was performed using a separate data acquisition with a non-contrast ogbo-vb-eaxpnm technique and a post-contrast technique to produce [...] Maureen Arenas M.D. us Malika Mishra MD IM MRI PROCEDURES Final Res ult * MRI [...] 3. Magnetic resonance angiography (MRA) of the yainpu-jq-Bmhhcq without and with contrast 4. Magnetic resonance [...] optic nerves. Magnetic resonance angiography of the vzfeem-vd-Wcggiw was performed using a separate data acquisition with a non-contrast ihyh-gd-zxpzuu technique and a post-contrast technique to produce axial thin-slice source images. These images were then used to generate maximum intensity projection (MIP) images. Magnetic resonance angiography of the neck was performed using a separate data acquisition with a non-contrast wdyr-ai-mbzanr technique and a post-contrast technique to produce [...] 3. Magnetic resonance angiography (MRA) of the quaund-ll-Uputgg without and with contrast 4. Magnetic resonance [...] optic nerves. Magnetic resonance angiography of the ermdwz-ax-Ukcrzu was performed using a separate data acquisition with a non-contrast rudo-iv-fvtydz technique and a post-contrast technique to produce axial thin-slice source images. These images were then used to generate maximum intensity projection (MIP) images. Magnetic resonance angiography of the neck was performed using a separate data acquisition with a non-contrast dzen-gm-xnnjph technique and a post-contrast technique to produce [...] by: Maureen Arenas M.D. Malika Mishra MD [facility] MRI PROCEDURES Final Res ult * Respiratory pathogen panel Nasopharyngeal (08/17/2024 2:02 PM CDT) Pathologist [facility] Influenza A RNA Not Detected Not Detected Influenza B RNA Not Detected Not Detected [facility] RSV RNA Not Detected Not Detected [facility] COVID-19 RNA Not Detected Not Detected [facility] Coronavirus 229E RNA Not Detected Not Detected [facility] Coronavirus HKU1 RNA Not Detected Not Detected [facility] Coronavirus NL63 RNA Not Detected Not Detected [facility] Coronavirus OC43 RNA Not Detected Not Detected [facility] Adenovirus DNA Not Detected Not Detected [facility] Metapneumovirus RNA Not Detected Not Detected [facility] Rhinovirus/Enterov irus RNA Not Detected Not Detected [facility] Parainfluenza 1 RNA Not Detected Not Detected [facility] Parainfluenza 2 RNA Not Detected Not Detected [facility] Parainfluenza 3 RNA Not Detected Not Detected [facility] Parainfluenza 4 RNA Not Detected Not Detected [facility] B. pertussis DNA Not Detected Not Detected [facility] B. parapertussis DNA Not Detected Not Detected [facility] C. pneumoniae DNA Not Detected Not Detected [facility] M. pneumoniae DNA Not Detected Not Detected [facility] Nasopharyngeal 08/17/2024 2: 02 PM CDT 08/17/2024 2:24 PM CDT Narrative [facility] - 08/17/2024 3:27 PM CDT Is the Patient experiencing symptoms consistent with COVID?->Yes Surveillance testing for transplant patient?->No Interpretive Data [employer] Film[employer] Respiratory Panel (RP2.1) assay is a [...] assay has FDA clearance for testing of PULP GRINDER FEEDER swabs. The performance of additional specimen types has been assessed by the performing laboratory. The performance characteristics of this assay have been determined by [facility] Molecular Infectious Disease Laboratory. Current interpretive data was last revised on 22. Malika Mishra MD LAB MICROBIOLOGY - GENERAL O RDERABLES Final Result [facility] [place] [address] * CTA Head Neck W WO Contrast [...] septum. Direct visualization is recommended. Dictated by: Waytt Nicole MD, Ph.D The radiology attending physician [...] the CTA were generated on a dedicated workstation/client server developer. Contrast information: 69 mL Optiray-350 IV COMPARISON: [...] narrowing or filling defects are identified. The ninbow-yv-Mfeviw is complete. The anterior and middle cerebral [...] the CTA were generated on a dedicated workstation/client server developer. Contrast information: 69 mL Optiray-350 IV COMPARISON: [...] narrowing or filling defects are identified. The fymkfq-wg-Wpayck is complete. The anterior and middle cerebral [...] - DEVICE Final Result Performing Organization Address [facility] Co de Phone Number [facility] [place] [address] * eGFR (08/17/2024 12:18 PM CDT) eGFR [...] ORDERABLES Final R esult Performing Organization Address City/[facility]/ZIP Co de Phone Number [facility] [place] [address] * (ABNORMAL) Differential, auto (08/17/2024 12:18 PM CDT) Neutrophil abs 5.0 1.5 - 6.5 K/cumm Imm gran abs 0.0 0.0 - 0.1 K/cumm [facility] Lymphocyte abs 1.1 0.8 - 3.3 K/cumm [facility] Monocyte abs 1.0(H) 0.2 - 0.8 K/cumm [facility] Eosinophil abs 0.1 0.0 - 0.5 K/cumm [facility] Basophil abs 0.1 0.0 - 0.1 K/cumm [facility] Neutrophil pct 68.9 % [facility] Comment: Interpretive Data Percent cell count reference ranges are not reported, since discordance with absolute values may lead to misinterpretation of CBC data. Current Interpretive Data was last revised on 2017. Imm gran pct 0.6 % [facility] Comment: Interpretive Data Percent cell count reference ranges are not reported, since discordance with absolute values may lead to misinterpretation of CBC data. Current Interpretive Data was last revised on 2017. Lymphocyte pct 15.4 % [facility] Comment: Interpretive Data Percent cell count reference ranges are not reported, since discordance with absolute values may lead to misinterpretation of CBC data. Current Interpretive Data was last revised on 2017. Monocyte pct 13.3 % [facility] Comment: Interpretive Data Percent cell count reference ranges are not reported, since discordance with absolute values may lead to misinterpretation of CBC data. Current Interpretive Data was last revised on 2017. Eosinophil pct 1.1 % [facility] Comment: Interpretive Data Percent cell count reference ranges are not reported, since discordance with absolute values may lead to misinterpretation of CBC data. Current Interpretive Data was last revised on 2017. Basophil pct 0.7 % [facility] Comment: Interpretive Data Percent cell count reference ranges are not reported, since discordance with absolute values may lead to misinterpretation of CBC data. Current Interpretive Data was last revised on 2017. Blood 08/17/2024 12:1 8 PM CDT 08/17/2024 12:35 PM CDT us Malika Mishra MD LAB BLOOD ORDERABLES Final R esult [facility] [place] [address] * (ABNORMAL) CBC with auto differential (08/17/2024 12:18 PM CDT) [facility] WBC 7.2 3.8 - 9.9 K/cumm Hgb 11.2(L) 11.9 - 15.5 g/dL [facility] Hct 33.2(L) 35.6 - 45.5 % [facility] Plt 187 150 - 400 K/cumm [facility] MPV 10.0 9.1 - 12.3 fL [facility] RBC 3.45(L) 3.90 - 5.20 M/cumm [facility] MCV 96.2 81.3 - 96.4 fL [facility] MCH 32.5 27.1 - 33.3 pg [facility] MCHC 33.7 32.3 - 35.7 g/dL [facility] RDW CV 14.8 11.1 - 14.9 % [facility] RDW SD 51.9(H) 35.7 - 48.1 fL [facility] NRBC abs 0.00 0.00 - 0.01 K/cumm [facility] Blood 08/17/2024 12:1 8 PM CDT 08/17/2024 12:35 PM CDT us Malika Mishra MD LAB BLOOD ORDERABLES Final R esult Performing Organization Address City/[facility] Co de Phone Number [facility] [place] [address] * aPTT (08/17/2024 12:18 PM CDT) [facility] aPTT 32 28 - 38 sec Comment: Interpretive Data Heparin therapeutic range: 66.0 - 100.0 seconds. Range based on correlation with therapeutic heparin activity range of 0.3 - 0.7 Units/mL. Current interpretive data was last revised on 2023. Blood 08/17/2024 12:1 8 PM CDT 08/17/2024 12:44 PM CDT us Malika Mishra MD LAB BLOOD ORDERABLES Final R esult [facility] [place] [address] * (ABNORMAL) Erythrocyte sedimentation rate (08/17/2024 12:18 PM CDT) Erythrocyte sedimentation rate 61(H) 1 - 30 mm/hr Blood 08/17/2024 12:1 8 PM CDT 08/17/2024 12:35 PM CDT us Malika Mishra MD LAB BLOOD ORDERABLES Final R esult Performing Organization Address [facility] [place] [address] * Protime-INR (08/17/2024 12:18 PM CDT) PT 13.0 9.7 - 13.0 sec INR 1.20 0.90 - 1.20 [facility] Comment: Interpretive data Oral anticoagulant [...] ORDERABLES Final R esult Performing Organization Address [facility] Co de Phone Number [facility] [place] [employer] [place] [address] * (ABNORMAL) CRP (acute phase) (08/17/2024 12:18 PM CDT) CRP 124.6(H) <=10.0 mg/L Blood 08/17/2024 12:1 8 PM CDT 08/17/2024 12:35 PM CDT us Malika Mishra MD LAB BLOOD ORDERABLES Final R esult [facility] [place] [address] * (ABNORMAL) Comprehensive metabolic panel (08/17/2024 12:18 PM CDT) Sodium 134(L) 135 - 145 mmol/L Potassium, pl 3.9 3.3 - 4.9 mmol/L [facility] Comment:Hemolyzed; Potassium value may be falsely elevated by as much as 0.3-0.5 mmol/L. Suggest redraw and reanalysis. Chloride 99 97 - 110 mmol/L [facility] CO2 26 22 - 32 mmol/L [facility] Anion gap 9 2 - 15 mmol/L [facility] BUN 7 6 - 25 mg/dL [facility] Creatinine 0.76 0.60 - 1.10 mg/dL [facility] Glucose 95 70 - 199 mg/dL [facility] Comment: Interpretive Data Fasting glucose [...] 2022. Calcium 9.3 8.5 - 10.3 mg/dL [facility] Bilirubin, total 0.4 0.1 - 1.2 mg/dL [facility] Protein, pl 8.2 6.5 - 8.5 g/dL [facility] Albumin 3.8 3.5 - 5.0 g/dL [facility] Alk phos 100 40 - 130 Units/L [facility] ALT 19 7 - 45 Units/L [facility] AST 31 10 - 45 Units/L [facility] Comment:Hemolyzed; result ma y be falsely elevated Blood 08/17/2024 12:1 8 PM CDT 08/17/2024 12:35 PM CDT us Malika Mishra MD LAB BLOOD ORDERABLES Final R esult Performing Organization Address [facility] Co de Phone Number [facility] [place] [address] * Thiopurine metabolites (07/10/2024 9:42 AM NOTCH MACHINE OPERATOR) Pathologist [facility] 6-TG, bld [phone] [place] ref Lab Comment:Increased possibilit y of response; optimal dosing. 6-MMP, bld <406 < or = 5700 [facility] Comment: Result not quantifiable; below the limit of quantitation. Decreased risk of hepatotoxicity. ADDITIONAL INFORMATION Testing performed by Liquid Chromatography-Tandem Mass Spectrometry (LC-MS/MS) This test was developed and its performance characteristics determined by [facility] in a manner consistent with CLIA requirements. This test has not been cleared or approved by the U.S. Food and Drug Administration. Test Performed by: [place] [address] [employer] Services Instructor: Dawit Avendano Ph.D.; CLIA# [id number] Blood 07/10/2024 9:42 AM NOTCH MACHINE OPERATOR 07/10/2024 12:32 PM NOTCH MACHINE OPERATOR us Hardy Dash MD LAB BL OOD ORDERABLES Final Result Performing Organization Address City/[facility]/ZIP Co de Phone Number [facility] [place] [address] [place] ref Lab * (ABNORMAL) CBC with auto differential (07/10/2024 9:42 AM NOTCH MACHINE OPERATOR) White Blood Count 3.7 3.6 - 11.2 [...] [facility] Blood 07/10/2024 9:42 AM NOTCH MACHINE OPERATOR 07/10/2024 10:51 AM NOTCH MACHINE OPERATOR us Hardy Dash MD LAB BL OOD ORDERABLES Final Result [facility] * (ABNORMAL) Erythrocyte sedimentation rate (07/10/2024 9:42 AM NOTCH MACHINE OPERATOR) Erythrocyte sedimentation rate 42(H) 1 - 30 mm/hr Blood 07/10/2024 9:42 AM NOTCH MACHINE OPERATOR 07/10/2024 12:09 PM NOTCH MACHINE OPERATOR Hardy Dash MD LAB BL OOD ORDERABLES Final Result [facility] [place] [address] * (ABNORMAL) CRP (acute phase) (07/10/2024 9:42 AM NOTCH MACHINE OPERATOR) Pathologist [facility] C-Reactive Protein, Acute 6.1(H) <5.0 mg/L [facility] Blood 07/10/2024 9:42 AM NOTCH MACHINE OPERATOR 07/10/2024 10:51 AM NOTCH MACHINE OPERATOR Hardy Dash MD LAB BL OOD ORDERABLES Final Result [facility] * (ABNORMAL) Comprehensive metabolic panel (07/10/2024 9:42 AM NOTCH MACHINE OPERATOR) Total Protein 8.1 6.1 - 8.4 g/dL [...] [facility] Blood 07/10/2024 9:42 AM NOTCH MACHINE OPERATOR 07/10/2024 10:51 AM NOTCH MACHINE OPERATOR Hardy Dash MD LAB BL OOD ORDERABLES Final Result [facility] * Hepatitis panel, acute Blood (02/05/2024 11:38 AM CDT) Hep A IgM Nonreactive Nonreactive Hep B core IgM Nonreactive Nonreactive [facility] Hep C Ab Nonreactive Nonreactive [facility] Comment:Antibodies to HCV no t detected. Does NOT exclude the possibility of recent exposure to HCV. Current interpretive data was last revised on 22 HepBsAg Nonreactive Nonreactive [facility] Blood 02/05/2024 11:3 8 AM CDT 02/05/2024 12:20 PM CDT us Yolette Palmer MD PhD LAB MICROBIOLOGY - GENERAL ORDERABLES Final Result [facility] Department [place] [address] from Last 3 Months or Most Recently Relevant to Health Maintenance Insurance T MEDICARE GOLD [facility] MEDICARE [facility] MEDICARE [facility] [employer] MEDICARE GOLD Advance Directives For more information, please contact: [phone] * Full Code (Latest Code Status on File) Date Activated Date Inactivated Comments 08/17/2024 11:21 PM 08/23/2024 9:39 PM * Full Code Date Activated Date Inactivated Comments 08/30/2022 3:05 PM 09/18/2022 7:53 PM * Full Code Date Activated Date Inactivated Comments 06/06/2022 6:17 PM 06/07/2022 6:51 PM * Full Code Date Activated Date Inactivated Comments 06/06/2022 5:47 PM 06/06/2022 6:17 PM Care Teams Enterprise Project Manager Relationship Specialty Start Date End Date Alison Perez MD [employer] [facility] [place] [address] PCP - General Internal Medicine 08/31/22 Zenon Alexander MD PhD [address] [place] [address] Consulting Physician Neurology 09/18/22 Terrence Avalos MD [address] [place] [address] Consulting Physician Infectious Diseases 09/18/22 Aurora Howell SLP [address] [facility] [address] [place] [address] Speech Language Pathologist Speech Therapy 08/01/24
--- OUTSIDE RECORDS SUMMARY | 2024-10-06 07:43 | XMS_ITS | Patient Health Record ---
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 Name Role Phone ChrisAlmazAlison Primary Care Provider UnavailTommie Quezada Unavailable [phone] [facility], Provider Unavailable Unavailab le Allergies Allergen [...] Comme nts Influenza Unknown 03/23/2021 Administered Portal Infor na Social History Tobacco Use: Social History Observation Description Date Details (start date - stop date) Former Smoker NA - NA Smoking Smart Form: Question Answer Notes Are you a: former smoker Problems Problem Type SNOMED Code ICD Code Onset Dates Problem Status W/U Status Risk Notes Problem 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 Problem Eruption of skin (200794688) Rash and other nonspecific skin eruption (R21) Active confirmed Problem Essential hypertension (57841590) Essential (primary) hypertension (I10) Active confirmed Problem Allergy to penicillin (16335555) Allergy status to penicillin (Z88.0) Active confirmed Problem Adverse effect o f sulfonamides, subsequent encounter (T37.0X5D) Active confirmed Encounters Encounter Location Date Provider Diagnosis MATY - Breanna [address] [place] [id number] 11/17/2023 Provider [facility]igration Rash and other nonspecific [...] Coverage End Date [employer] Medicare [address] ADRIANNA Plummer [phone] [id number] Toña Yo Self - patient is the [...]
--- OUTSIDE RECORDS SUMMARY | 2024-10-06 07:43 | XMS_ITS | Clinical Summary ---
Author Organization [facility] Address [address] [place] [address] Care Team Providers Care Children'S Aide Name Role Phone Alison Perez MD Primary Care Provider [phone] Zenon Alexander MD PhD Unavailable [phone] Terrence Avalos MD Unavailable [phone] Aurora Howell [facility] Unavailable Allergies Active Allergy Reactions Criticality Noted [...] Noted Date Diagnosed Date Vasculitis 08/17/2024 Vasculitis, ELEVATOR EXAMINER 05/22/2024 Adverse effect of sulfonamides, subsequent encou nter 08/17/2023 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 08/17/2023 Essential hypertension 05/08/2023 Overview (09/09/2024): Last Assessment & Plan: Continue amlodipine and losartan Last Assessment & Plan: Continue amlodipine and losartan Assessment & Plan (06/06/2022 8:27 PM RN RADIATION): Continue amlodipine and losartan Unspecified contact dermatitis [...] 06/06/2022 Assessment & Plan (06/06/2022 8:26 PM RN RADIATION): Started on Vancomycin CBC and BMP in a.m Cyst of breast 07/07/2015 Graves disease Assessment & Plan (06/06/2022 8:26 PM RN RADIATION): Continue Synthroid Encounters Date Type Department Care Team Description 10/01/2024 Telephone [facility] Rheumatology [address] [place] [address] 5th [place] [address] [place] [address] Haider Durand Case Management- Basic Needs; PHV 09/29/2024 4:05 PM CDT - 09/29/2024 11:59 PM CDT Hospital Encounter [facility] [address] [place] [address] ELEVATOR EXAMINER vasculitis Discharge Disposition: Discharge to home or self care 09/29/2024 4:00 PM CDT Lab [facility] Infectious Diseases [address] [place] [address] [address] [place] [phone] 09/29/2024 2:00 PM CDT Office Visit [facility] Rheumatology [address] [place] [address] [address] [place] [phone] Hardy De Santiago MD Urticarial vasculitis (Primary Dx); ELEVATOR EXAMINER vasculitis; 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 09/25/2024 Telephone [facility] Neurology [address] [place] [address] [address] [place] [address] Sanya Farmer MD 09/18/2024 9:45 AM CDT Office Visit [facility] at [address] [address] Phong Turpin NP Encounter for removal of sutures (Primary Dx) 09/16/2024 Telephone [facility] Rheumatology [address] [place] [address] Medicine [facility] Floor [address] [place] [phone] Haider Durand PHV 09/10/2024 8:50 AM CDT Ancillary Procedure [facility] at [address] [address] Laceration of left index finger without foreign body without damage to nail, initial encounter 09/10/2024 Results Follow-Up [facility] at [address] [address] Marlen Severino PA 09/09/2024 5:15 PM CDT Office Visit [facility] at [address] [address] Marlen Severino PA Laceration of left index finger without foreign body without damage to nail, initial encounter (Primary Dx) 08/30/2024 Telephone [facility] Ophthalmology [address] [place] [phone] Chris Lr MD 08/26/2024 Telephone [facility] Rheumatology [address] [place] [address] 5th [place] [address] Gavi Hernández CMA PHV pt follow up 08/22/2024 Ophth Exam [facility] Ophthalmology [address] [place] [phone] Mireille Pineda MD 08/21/2024 Ophth Exam [facility] Ophthalmology [address] [place] [phone] Mireille Pineda MD 08/20/2024 Ophth Exam [facility] Ophthalmology [address] [phone] Mireille Pineda MD 08/19/2024 1:10 PM CDT - 08/19/2024 2:45 PM CDT Surgery [facility] Operating Room [address] [place] [address] Ramesh Graham MD BIOPSY - TEMPORAL ARTERY 08/19/2024 12:31 PM CDT Anesthesia Event [facility] Operating Room [address] [place] [address] Neema Cruz MD PhD Karson Presley NP 08/19/2024 9:40 AM CDT Ancillary Procedure [facility] Vascular Lab IP [address] [facility] [address] [place] [address] 08/19/2024 Ophth Exam [facility] Ophthalmology [address] [place] [phone] Mireille Pineda MD 08/18/2024 Orders Only [address] [phone] Shailesh Wong MD 08/18/2024 Ophth Exam [facility] Ophthalmology [address] [place] [phone] Mireille Pineda MD 08/17/2024 10:49 AM CDT - 08/23/2024 5:30 PM CDT Hospital Encounter [address] [address] Tommie Mccann MD Lacy, MD David Rodriguez, Mark Segundo MD Vasculitis (Primary Dx); Vasculitis, ELEVATOR EXAMINER Discharge Disposition: Discharge to home or self care 08/17/2024 Ophth Exam [facility] Ophthalmology [address] [place] [phone] Kori Woodward MD 08/16/2024 4:15 PM CDT Office Visit [facility] at [address] [phone] Amy Escamilla NP Vision changes (Primary Dx); Acute intractable headache, unspecified headache type 08/09/2024 Telephone [facility] Neurology [address] [place] [phone] Sanya Farmer MD 08/01/2024 Plan of Care Documentation [facility] Physical Therapy [address] [place] [phone] 07/30/2024 10:00 AM RN RADIATION Therapy [facility] Physical Therapy [address] [place] [phone] Aurora Howell SLP Vasculitis, ELEVATOR EXAMINER (Primary Dx); Mild cognitive impairment 07/29/2024 Telephone [facility] Neurology [address] [place] [phone] Sanya Farmer MD 07/18/2024 Telephone [facility] Neurology [address] [place] [phone] Samantha Morris 07/15/2024 Telephone [facility] Neurology [address] [place] [phone] Sanya Farmer MD 07/14/2024 Telephone [facility] Neurology [address] [place] [phone] Sanya Farmer MD 07/10/2024 9:42 AM RN RADIATION - 07/10/2024 11:59 PM RN RADIATION Hospital Encounter [facility] [address] [place] [address] 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; Urticarial vasculitis Discharge Disposition: Discharge to home or self care 07/10/2024 9:30 AM RN RADIATION Lab [facility] Endocrinology Metabolism and Lipid [address] [facility] 5th [place] [address] [place] [address] 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 8:30 AM RN RADIATION Office Visit [facility] Rheumatology [address] [facility] 5th [place] [address] [place] [phone] Hardy De Santiago MD Urticarial vasculitis (Primary Dx); 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; ELEVATOR EXAMINER vasculitis; Abnormal brain scan from Last 3 Months Immunizations Immunization Administration Dates Next Due Influenza, Quad, Adjuvantate d, Intramuscular 03/15/2022,03/11/2020 Influenza, Quadrivalent, Hig h Dose, Preservative Free, Intrr 03/23/2021 Influenza, Trivalent, Adjuva nted, Intramuscular 03/06/2024 Influenza, Trivalent, Cell C ulture-based MDCK, Preservative Free, Antibiotic Free, Intramuscular 03/11/2019 Influenza, Unspecified 03/10/2020 RSV Vaccine, Pref, Recombina nt, Subunit, Adjuvanted, PF, IM (Arexvy) 08/09/2023 Sars-CoV-2, Unspecified 03/29/2021,09/01/2020, Tdap 03/10/2020,05/07/2019 ZOSTER Recombinant 03/11/2020 Surgical History Surgery Date Site/Laterality Comments HAND [...] How often do you attend chur or congregational services? More than 4 times per year 08/31/2022 Do you belong to any clubs o r organizations such as taoist groups, unions, fraternal or athletic groups, or [...] on file Legal Sex Female 11:45 AM RN RADIATION Gender Identity Female 02/08/2019 7:49 PM CDT [...] 09/29/2024 2:47 PM CDT Plan of Treatment Health Maintenance Due Date Last Done Comments Breast Cancer Screening-Mammogram 1954 Colon Cancer Screening-Colonoscopy 1954 Depression Screening 1954 Osteoporosis Screening-Bone Density Scan 1954 Hepatitis B Screening 1972 Pneumococcal vaccine 65+ (1 of 2 - PCV) 1973 Well Visit 65+ 2019 Zoster Vaccine (2 of 2) 05/06/2020 03/11/2020 Covid-19 Vaccine ( season) 2024 03/06/2024, 08/09/2023, 03/15/2022, Additional history exists Fall Risk Assessment 08/23/2025 08/23/2024 DTaP/Tdap/Td Vaccine (3 - Td or Tdap) 03/10/2030 03/10/2020, 05/07/2019 Hepatitis C Screening Completed 02/05/2024, 023 Influenza Vaccine Completed 03/06/2024, , 03/23/2021, Additional history exists Procedures Procedure Name Priority Date/Time Associated Diagnosis Comments EGFR Routine 09/29/2024 4:05 PM CDT ELEVATOR EXAMINER vasculitis DIFFERENTIAL AUTO Routine 09/29/2024 4:0 5 PM CDT ELEVATOR EXAMINER vasculitis ANTI-NEUTROPHILIC CYTOPLASMIC ANTIBODY Routine 09/29/2024 4:05 PM CDT ELEVATOR EXAMINER vasculitis PROTEIN / CREATININE RATIO, URINE, RANDOM Routine 09/29/2024 4:05 PM CDT ELEVATOR EXAMINER vasculitis C3 COMPLEMENT Routine 09/29/2024 4:05 PM CDT ELEVATOR EXAMINER vasculitis C4 COMPLEMENT Routine 09/29/2024 4:05 PM CDT ELEVATOR EXAMINER vasculitis ERYTHROCYTE SEDIMENTATION RATE Routine 09/29/2024 4:05 PM CDT ELEVATOR EXAMINER vasculitis CBC WITH AUTO DIFFERENTIAL Routine 09/29/2024 4:05 PM CDT ELEVATOR EXAMINER vasculitis COMPREHENSIVE METABOLIC PANEL Routine 09/29/2024 4:05 PM CDT ELEVATOR EXAMINER vasculitis CRP (ACUTE PHASE) Routine 09/29/2024 4:0 5 PM CDT ELEVATOR EXAMINER vasculitis URINALYSIS AND REFLEX TO MICROSCOPIC AND CULTURE Routine 09/29/2024 4:05 PM CDT ELEVATOR EXAMINER vasculitis SUTURE REMOVAL Routine 09/18/2024 10:02 AM [...] DEVICE Routine 08/21/2024 5 :48 PM CDT KS DIAGNOSTIC LUMBAR SPINAL PUNCTURE Routine 08/21/2024 3:17 PM CDT Vasculitis, ELEVATOR EXAMINER MYELIN OLIGODENDROCYTE GLYCOPROTEIN (MOG-IGG1) FLUORESCENCE-ACTIVATED CELL SORTING [...] BODY FLUID STAT 08/18/2024 5:25 AM CDT KS CRITICAL CARE ILL/INJURED PATIENT INIT 30-74 MIN [...] ERYTHROCYTE SEDIMENTATION RATE Routine 07/10/2024 9:42 AM RN RADIATION Urticarial vasculitis THIOPURINE METABOLITES Routine 9:42 AM RN RADIATION 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 COMPREHENSIVE METABOLIC PANEL Routine 07/10/2024 9:42 AM RN RADIATION Urticarial vasculitis CRP (ACUTE PHASE) Routine 07/10/2024 9:4 2 AM RN RADIATION Urticarial vasculitis CBC WITH AUTO DIFFERENTIAL Routine 07/10/2024 9:42 AM RN RADIATION Urticarial vasculitis HEPATITIS PANEL, ACUTE Routine 11:38 AM CDT Rash and other nonspecific skin eruption from Last 3 Months or Most Recently Relevant to Health Maintenance Results * eGFR (09/29/2024 4:05 PM CDT) Pathologist [facility] eGFR 65 >=60 mL/min/1. 73 m2 Comment: [...] MD LAB BL OOD ORDERABLES Final Result [facility] [address] [place] [address] * (ABNORMAL) Differential, auto (09/29/2024 4:05 PM CDT) Neutrophil abs 1.70 1.50 - 6.50 K/cumm Imm gran abs 0.16(H) 0.00 - 0.10 K/cumm [facility] Lymphocyte abs 2.43 0.80 - 3.30 K/cumm [facility] Monocyte abs 0.88(H) 0.20 - 0.80 K/cumm [facility] Eosinophil abs 0.09 0.00 - 0.50 K/cumm [facility] Basophil abs 0.09 0.00 - 0.10 K/cumm [facility] Neutrophil pct 31.8 % [facility] Comment: Interpretive Data Percent cell count reference ranges are not reported, since discordance with absolute values may lead to misinterpretation of CBC data. Current Interpretive Data was last revised on 2017. Imm gran pct 3.0 % [facility] Comment: Interpretive Data Percent cell count reference ranges are not reported, since discordance with absolute values may lead to misinterpretation of CBC data. Current Interpretive Data was last revised on 2017. Lymphocyte pct 45.4 % [facility] Comment: Interpretive Data Percent cell count reference ranges are not reported, since discordance with absolute values may lead to misinterpretation of CBC data. Current Interpretive Data was last revised on 2017. Monocyte pct 16.4 % [facility] Comment: Interpretive Data Percent cell count reference ranges are not reported, since discordance with absolute values may lead to misinterpretation of CBC data. Current Interpretive Data was last revised on 2017. Eosinophil pct 1.7 % [facility] Comment: Interpretive Data Percent cell count reference ranges are not reported, since discordance with absolute values may lead to misinterpretation of CBC data. Current Interpretive Data was last revised on 2017. Basophil pct 1.7 % [facility] Comment: Interpretive Data Percent cell count reference ranges are not reported, since discordance with absolute values may lead to misinterpretation of CBC data. Current Interpretive Data was last revised on 2017. Blood 09/29/2024 4:05 PM CDT 09/29/2024 7:24 PM CDT Hardy Dash MD LAB BL OOD ORDERABLES Final Result [facility] [address] [facility] [place] [address] * C4 complement (09/29/2024 4:05 PM CDT) Complement C4 32 10 - 40 mg/dL Blood 09/29/2024 4:05 PM CDT 09/29/2024 7:23 PM CDT Hardy Dash MD LAB BL OOD ORDERABLES Final Result [facility] [address] [facility] [place] [address] * Urinalysis reflex to microscopic and culture [...] tendency for uric acid stone formation. Source: [facility] Current Interpretive Data was last [...] microscopic UA and culture not met. [facility] Urine 09/29/2024 4:05 PM CDT 09/29/2024 7:45 PM CDT Hardy Dash MD LAB MICROBIOLOGY - GENERAL ORDERABLES Final Result [facility] [address] [address] [place] [address] * (ABNORMAL) CBC with auto differential (09/29/2024 4:05 PM CDT) WBC 5.35 3.80 - 9.90 K/cumm Hgb 11.9 11.9 - 15.5 g/dL [facility] Hct 37.7 35.6 - 45.5 % [facility] Plt 397 150 - 400 K/cumm [facility] MPV 9.0(L) 9.1 - 12.3 fL [facility] CH RBC 3.84(L) 3.90 - 5.20 M/cumm [facility] MCV 98.2(H) 81.3 - 96.4 fL [facility] CH MCH 31.0 27.1 - 33.3 pg [facility] CH MCHC 31.6(L) 32.3 - 35.7 g/dL [facility] RDW CV 14.4 11.1 - 14.9 % [facility] RDW SD 52.1(H) 35.7 - 48.1 fL [facility] NRBC abs 0.00 0.00 - 0.01 K/cumm [facility] Blood 09/29/2024 4:05 PM CDT 09/29/2024 7:24 PM CDT Hardy Dash MD LAB BL OOD ORDERABLES Final Result Performing Organization Address [facility] de Phone Number [facility] [address] [place] [address] * Protein / creatinine ratio, urine, random (09/29/2024 4:05 PM CDT) Pathologist [facility] [place] Protein, ur, quant 6.9 mg/dL Comment: Interpretive Data No reference range established. Current interpretive data was last revised 2018. Creatinine Ur 65.1 mg/dL [facility] Comment: Interpretive Data No reference range established. Current interpretive data was last revised 2018. Protein/creatinin e ratio 106.0 0.0 - 180.0 mg/g CR [facility] Urine 09/29/2024 4:05 PM CDT 09/29/2024 7:44 PM CDT Hardy Dash MD LAB UR INE ORDERABLES Final Result Performing Organization Address [facility] Co de Phone Number [facility] [address] [address] * ANCA (09/29/2024 4:05 PM CDT) Pathologist [facility] C-ANCA Negative Negative [facility] ref Lab P-ANCA Negative Negative [facility] Comment: Negative for cANCA and pANCA patterns by immunofluorescence. ADDITIONAL INFORMATION This test was developed and its performance characteristics determined by [facility] in a manner consistent with CLIA requirements. This test has not been cleared or approved by the U.S. Food and Drug Administration. Test Performed by: [facility] Laboratories [facility] [address] [place] [address] [employer] Operator: Dawit Avendano Ph.D.; CLIA# [id number] Blood 09/29/2024 4:05 PM CDT 09/30/2024 9:46 AM CDT Hardy Dash MD LAB BL OOD ORDERABLES Final Result Performing Organization Address [facility] Co de Phone Number [facility] [address] [facility] [place] [address] [facility] ref Lab * (ABNORMAL) Erythrocyte sedimentation rate (09/29/2024 4:05 PM CDT) Erythrocyte sedimentation rate 55(H) 1 - 30 mm/hr Comment:Testing performed by : [facility], [facility], [place], [address] Blood 09/29/2024 4:05 PM CDT 09/29/2024 7:24 PM CDT Hardy Dash MD LAB BL OOD ORDERABLES Final Result Performing Organization Address [facility]/ZIP Co de Phone Number [facility] NETO [address] [place] [address] * C3 complement (09/29/2024 4:05 PM CDT) Complement C3 162 90 - 180 mg/dL Blood 09/29/2024 4:05 PM CDT 09/29/2024 7:23 PM CDT Hardy Dash MD LAB BL OOD ORDERABLES Final Result Performing Organization Address [facility] Co de Phone Number [facility] [address] Department [place] [address] * (ABNORMAL) CRP (acute phase) (09/29/2024 4:05 PM CDT) CRP 27.4(H) <=10.0 mg/L Blood 09/29/2024 4:05 PM CDT 09/29/2024 7:23 PM CDT Hardy Dash MD LAB BL OOD ORDERABLES Final Result [facility] [address] Department [place] [address] * (ABNORMAL) Comprehensive metabolic panel (09/29/2024 4:05 PM CDT) Pathologist [facility] Sodium 134(L) 135 - 145 mmol/L Potassium, pl 4.0 3.3 - 4.9 mmol/L [facility] Chloride 95(L) 97 - 110 mmol/L [facility] CO2 27 22 - 32 mmol/L [facility] Anion gap 12 2 - 15 mmol/L [facility] BUN 10 6 - 25 mg/dL [facility] Creatinine 0.94 0.60 - 1.10 mg/dL [facility] Glucose 82 70 - 199 mg/dL [facility] Comment: Interpretive Data Fasting glucose >/= 126 [...] BL OOD ORDERABLES Final Result [facility] [address] Department [place] [address] * Suture Removal (09/18/2024 10:02 AM CDT) [...] sponges and other items accounted for: Yes Result [facility] Phong Turpin NP IN CLINIC/BEDSIDE ORDERABLES Fi [...] by Sen Mayfield M.D. T: Report ID: [id number] Reading Location: [id number] Procedure Note Sen Mayfield MD - 09/10/2024 [...] by Sen Mayfield M.D. T: Report ID: [id number] Reading Location: [id number] Marlen FREIRE IMG XR PROCEDURES Final Result [...] Procedure completion: Tolerated well, no immediate complications aMrlen FREIRE IN CLINIC/BEDSIDE ORDERA BLES Final Result [...] ORDERABLES Keyona l Result Performing Organization Address [facility] Co de Phone Number [facility] [place] [address] * POCT glucose (08/23/2024 12:14 PM CDT) Glucose, POC 149 70 - 199 mg/dL Blood 08/23/2024 12:1 4 PM CDT 08/23/2024 12:14 PM CDT Mark Hernandez MD LAB POCT ORDERABLES - DEV ICE Final Result Performing Organization Address [facility] de Phone Number [facility] [place] [address] * POCT glucose (08/23/2024 8:20 AM CDT) Glucose, POC 117 70 - 199 mg/dL Blood 08/23/2024 8:20 AM CDT 08/23/2024 8:20 AM CDT Result [facility] Mark Hernandez MD LAB POCT ORDERABLES - DEV ICE Final Result Performing Organization Address [facility] de Phone Number [facility] [place] [address] * eGFR (08/23/2024 5:20 AM CDT) eGFR [...] ORDERABLES Keyona l Result Performing Organization Address [facility] Co de Phone Number [facility] [place] [address] * (ABNORMAL) Erythrocyte sedimentation rate (08/23/2024 5:20 AM CDT) Erythrocyte sedimentation rate 94(H) 1 - 30 mm/hr Blood 08/23/2024 5:20 AM CDT 08/23/2024 5:42 AM CDT Mark Hernandez MD LAB BLOOD ORDERABLES Keyona l Result Performing Organization Address [facility] Co de Phone Number [facility] Department [place] [address] * (ABNORMAL) CBC without differential (08/23/2024 5:20 AM CDT) WBC 15.6(H) 3.8 - 9.9 K/cumm Hgb 8.6(L) 11.9 - 15.5 g/dL [facility] Hct 25.2(L) 35.6 - 45.5 % [facility] Plt 333 150 - 400 K/cumm [facility] MPV 9.3 9.1 - 12.3 fL [facility] RBC 2.69(L) 3.90 - 5.20 M/cumm [facility] MCV 93.7 81.3 - 96.4 fL [facility] MCH 32.0 27.1 - 33.3 pg [facility] MCHC 34.1 32.3 - 35.7 g/dL [facility] RDW CV 14.5 11.1 - 14.9 % [facility] RDW SD 49.2(H) 35.7 - 48.1 fL [facility] NRBC abs 0.00 0.00 - 0.01 K/cumm [facility] Blood 08/23/2024 5:20 AM CDT 08/23/2024 5:42 AM CDT Mark Hernandez MD LAB BLOOD ORDERABLES Keyona l Result Performing Organization Address [facility] Co de Phone Number [facility] Department [email or web address] [address] * (ABNORMAL) CRP (acute phase) (08/23/2024 5:20 AM CDT) [facility] CRP 30.8(H) <=10.0 mg/L Blood 08/23/2024 5:20 AM CDT 08/23/2024 5:42 AM CDT Mark Hernandez MD LAB BLOOD ORDERABLES Keyona l Result Performing Organization Address [facility] Co de Phone Number [facility] [place] [address] * Basic metabolic panel (08/23/2024 5:20 AM CDT) [facility] Sodium 137 135 - 145 mmol/L Potassium, pl 4.8 3.3 - 4.9 mmol/L [facility] Chloride 101 97 - 110 mmol/L [facility] CO2 28 22 - 32 mmol/L [facility] Anion gap 8 2 - 15 mmol/L [facility] BUN 18 6 - 25 mg/dL [facility] Creatinine 0.73 0.60 - 1.10 mg/dL [facility] Glucose 132 70 - 199 mg/dL [facility] Comment: Interpretive Data Fasting [...] 2022. Calcium 9.4 8.5 - 10.3 mg/dL [facility] Blood 08/23/2024 5:20 AM CDT 08/23/2024 5:42 AM CDT Mark Hernandez MD LAB BLOOD ORDERABLES Keyona l Result [facility] Department [place] [address] * POCT glucose (08/22/2024 9:22 PM CDT) Glucose, POC 172 70 - 199 mg/dL Blood 08/22/2024 9:22 PM CDT 08/22/2024 9:22 PM CDT Mark Hernandez MD LAB POCT ORDERABLES - DEV ICE Final Result [facility] [place] [address] * POCT glucose (08/22/2024 4:59 PM CDT) Glucose, POC 172 70 - 199 mg/dL Blood 08/22/2024 4:59 PM CDT 08/22/2024 4:59 PM CDT Mark Hernandez MD LAB POCT ORDERABLES - DEV ICE Final Result Performing Organization Address [facility] Co de Phone Number [facility]AR[facility] [email or web address] [address] * POCT glucose (08/22/2024 12:24 PM CDT) Glucose, POC 156 70 - 199 mg/dL Blood 08/22/2024 12:2 4 PM CDT 08/22/2024 12:24 PM CDT Mark Hernandez MD LAB POCT ORDERABLES - DEV ICE Final Result Performing Organization Address [facility] Co de Phone Number [facility] [place] [address] * POCT glucose (08/22/2024 8:05 AM CDT) Glucose, POC 135 70 - 199 mg/dL Blood 08/22/2024 8:05 AM CDT 08/22/2024 8:05 AM CDT Mark Hernandez MD LAB POCT ORDERABLES - DEV ICE Final Result Performing Organization Address [facility] Co de Phone Number [facility] [place] [address] * POCT glucose (08/21/2024 9:15 PM CDT) Glucose, POC 164 70 - 199 mg/dL Blood 08/21/2024 9:15 PM CDT 08/21/2024 9:15 PM CDT Mark Hernandez MD LAB POCT ORDERABLES - DEV ICE Final Result Performing Organization Address [facility] Co de Phone Number KARMA [facility] [place] [address] * POCT glucose (08/21/2024 5:48 PM CDT) Glucose, POC 144 70 - 199 mg/dL Blood 08/21/2024 5:48 PM CDT 08/21/2024 5:48 PM CDT us Mark Hernandez MD LAB POCT ORDERABLES - DEV ICE Final Result KARMA BORGES [facility] [place] [address] * [place] DIAGNOSTIC LUMBAR SPINAL PUNCTURE (08/21/2024 3:17 PM CDT) Narrative Mark Hernandez MD - 08/21/2024 3:17 PM CDT Mark Hernandez MD 08/21/2024 3:19 PM Lumbar Puncture Date/Time: 08/21/2024 3:17 PM Performed by: Mark Hernandez MD Authorized by: Mark Hernandez MD Grover Protocol: RN Notified of Procedure: yes Informed consent: Risks, benefits, alternatives discussed and patient/marketing development representative/guardian agrees and accepts Patient's stated name/ [...] [facility], [place] MOG IgG ser Negative Negative [facility] ref Lab Comment: No informative autoantibodies were detected in this evaluation. A negative result does not preclude a diagnosis of an inflammatory ELEVATOR EXAMINER demyelinating disorder. ADDITIONAL INFORMATION This test was developed and its performance characteristics determined by [facility] in a manner consistent with CLIA requirements. This test has not been cleared or approved by the U.S. Food and Drug Administration. Test Performed by: [facility] [place] [address] Dry Cans Operator: Dawit Avendano Ph.D.; CLIA# [id number] Blood 08/21/2024 1:06 PM CDT 08/21/2024 2:12 PM CDT Mark Hernandez MD LAB BLOOD ORDERABLES Keyona casey Result KARMA BORGES [facility] Department [place] [address] [facility] ref Lab * NMO (neuromyelitis optica) IgG, serum (08/21/2024 1:06 PM CDT) NMO/AQP4 IgG ser Negative Negative [facility] ref Lab Comment: Recommend repeat testing in 6 months if clinical suspicion is high. Negative result can occur in the setting of immunosuppression. ADDITIONAL INFORMATION This test was developed and its performance characteristics determined by [facility] in a manner consistent with CLIA requirements. This test has not been cleared or approved by the U.S. Food and Drug Administration. Test Performed by: [place] [id number] [employer] C[employer] Operator: Dawit Avendano Ph.D.; CLIA# [id number] Blood 08/21/2024 1:06 PM CDT 08/21/2024 2:13 PM CDT Mark Hernandez MD LAB BLOOD ORDERABLES Keyona l Result Performing Organization Address [facility]/ZIP Co de Phone Number [facility] Department [place] [address] Jorge ref Lab * POCT glucose (08/21/2024 12:45 PM CDT) Pathologist [facility] [place] Glucose, POC 159 70 - 199 mg/dL Blood 08/21/2024 12:4 5 PM CDT 08/21/2024 12:45 PM CDT Mark Hernandez MD LAB POCT ORDERABLES - DEV ICE Final Result Performing Organization Address [facility]/ZIP Co de Phone Number [facility] [place] [address] * POCT glucose (08/21/2024 8:12 AM CDT) Glucose, POC 136 70 - 199 mg/dL Blood 08/21/2024 8:12 AM CDT 08/21/2024 8:12 AM CDT Shailesh Wong MD LAB POCT ORDERABLES - DEVICE Final Result Performing Organization Address [facility] Co de Phone Number [facility] [place] [address] * eGFR (08/20/2024 9:49 PM CDT) eGFR [...] ORDERABLES Keyona l Result Performing Organization Address [facility] Co de Phone Number KARMA BORGES May[facility] Department [place] [address] * (ABNORMAL) Erythrocyte sedimentation rate (08/20/2024 9:49 PM CDT) Erythrocyte sedimentation rate 95(H) 1 - 30 mm/hr Blood 08/20/2024 9:49 PM CDT 08/20/2024 10:04 PM CDT us Shailesh Wong MD LAB BLOOD ORDERABLES Final Re sult Performing Organization Address [facility] Co de Phone Number [facility] [place] [address] * (ABNORMAL) CBC without differential (08/20/2024 9:49 PM CDT) WBC 13.8(H) 3.8 - 9.9 K/cumm Hgb 9.9(L) 11.9 - 15.5 g/dL [facility] Hct 28.4(L) 35.6 - 45.5 % [facility] Plt 232 150 - 400 K/cumm [facility] MPV 9.7 9.1 - 12.3 fL [facility] RBC 3.08(L) 3.90 - 5.20 M/cumm [facility] MCV 92.2 81.3 - 96.4 fL [facility] MCH 32.1 27.1 - 33.3 pg [facility] MCHC 34.9 32.3 - 35.7 g/dL [facility] RDW CV 14.1 11.1 - 14.9 % [facility] RDW SD 47.7 35.7 - 48.1 fL [facility] NRBC abs 0.00 0.00 - 0.01 K/cumm [facility] Blood 08/20/2024 9:49 PM CDT 08/20/2024 10:04 PM CDT Mark Hernandez MD LAB BLOOD ORDERABLES Keyona l Result [facility] [place] [address] * (ABNORMAL) CRP (acute phase) (08/20/2024 9:49 PM CDT) CRP 195.4(H) <=10.0 mg/L Blood 08/20/2024 9:49 PM CDT 08/20/2024 10:04 PM CDT Shailesh Wong MD LAB BLOOD ORDERABLES Final Re sult [facility] Department [place] [address] * (ABNORMAL) Basic metabolic panel (08/20/2024 9:49 PM CDT) Pathologist [facility] [place] Sodium 131(L) 135 - 145 mmol/L Potassium, pl 4.7 3.3 - 4.9 mmol/L [facility] Chloride 95(L) 97 - 110 mmol/L [facility] CO2 25 22 - 32 mmol/L [facility] Anion gap 11 2 - 15 mmol/L [facility] BUN 18 6 - 25 mg/dL [facility] Creatinine 0.65 0.60 - 1.10 mg/dL [facility] Glucose 157 70 - 199 mg/dL [facility] Comment: Interpretive Data Fasting [...] 2022. Calcium 8.9 8.5 - 10.3 mg/dL [facility] Blood 08/20/2024 9:49 PM CDT 08/20/2024 10:04 PM CDT us Mark Hernandez MD LAB BLOOD ORDERABLES Keyona l Result Performing Organization Address [facility]/ZIP Co de Phone Number [facility] Department [place] [address] * POCT glucose (08/20/2024 9:20 PM CDT) Glucose, POC 168 70 - 199 mg/dL Blood 08/20/2024 9:20 PM CDT 08/20/2024 9:20 PM CDT us Shailesh Wong MD LAB POCT ORDERABLES - DEVICE Final Result Performing Organization Address [facility] de Phone Number [facility] [place] [address] * POCT glucose (08/20/2024 9:14 PM CDT) Glucose, POC 149 70 - 199 mg/dL Blood 08/20/2024 9:14 PM CDT 08/20/2024 9:14 PM CDT Shailesh Wong MD LAB POCT ORDERABLES - DEVICE Final Result Performing Organization Address [facility] de Phone Number [facility] [place] [address] * POCT glucose (08/20/2024 5:26 PM CDT) Glucose, POC 140 70 - 199 mg/dL Blood 08/20/2024 5:26 PM CDT 08/20/2024 5:26 PM CDT Shailesh Wong MD LAB POCT ORDERABLES - DEVICE Final Result Performing Organization Address [facility] de Phone Number [facility] [place] [address] * POCT glucose (08/20/2024 1:32 PM CDT) Glucose, POC 132 70 - 199 mg/dL Blood 08/20/2024 1:32 PM CDT 08/20/2024 1:32 PM CDT Shailesh Wong MD LAB POCT ORDERABLES - DEVICE Final Result [facility] [place] [address] * MRI MRA Vessel Wall Imaging W [...] 2. Magnetic resonance angiography (MRA) of the ehlvaj-gd-Vqmksh without and with contrast 3. 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 Magnetic resonance angiography of the tsxsli-qs-Anugre was performed using a separate data acquisition with a non-contrast kgiz-sw-ojbsqd technique and a post-contrast technique to produce [...] on prior study is not redemonstrated. The apelev-ev-Hevezh is complete. The anterior and middle cerebral [...] 2. Magnetic resonance angiography (MRA) of the ipunhz-tn-Ylzzqk without and with contrast 3. 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 Magnetic resonance angiography of the mosbgk-nx-Xucpkt was performed using a separate data acquisition with a non-contrast fitr-zu-jgbxml technique and a post-contrast technique to produce [...] on prior study is not redemonstrated. The qmokfi-zh-Almwjv is complete. The anterior and middle cerebral [...] it. Electronically signed by: Julián Harkins M.D. us Shailesh Wong MD IMG MRI PROCEDURES Final [...] 2. Magnetic resonance angiography (MRA) of the oenfop-hc-Jvwptg without and with contrast 3. 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 Magnetic resonance angiography of the oqynpw-ap-Yrdzvs was performed using a separate data acquisition with a non-contrast vnwm-qj-kdxntx technique and a post-contrast technique to produce [...] on prior study is not redemonstrated. The grkpfk-gw-Btofyn is complete. The anterior and middle cerebral [...] 2. Magnetic resonance angiography (MRA) of the neufgp-hx-Lmcypi without and with contrast 3. 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 Magnetic resonance angiography of the rlexda-ix-Gqbndd was performed using a separate data acquisition with a non-contrast uzok-ta-egfbuk technique and a post-contrast technique to produce [...] on prior study is not redemonstrated. The ehnxdq-xs-Arpxxg is complete. The anterior and middle cerebral [...] agrees with it. Electronically signed by: Julián Peter Harkins, M.D. Shailesh Wong MD IMG MRI PROCEDURES Final Resu lt * POCT glucose (08/20/2024 7:55 AM CDT) Pathologist [facility] [place] Glucose, POC 131 70 - 199 mg/dL Blood 08/20/2024 7:55 AM CDT 08/20/2024 7:55 AM CDT Shailesh Wong MD LAB POCT ORDERABLES - DEVICE Final Result Performing Organization Address [facility] Co de Phone Number [facility] [place] [address] * Neuromuscular Specimen Tracking Inpatient Blood (08/19/2024 11:16 PM CDT) Blood 08/19/2024 11:1 6 PM CDT 08/19/2024 11:16 PM CDT Narrative [facility] - 08/19/2024 11:16 PM CDT Blood draw complete Shailesh Wong MD LAB BLOOD ORDERABLES Final Re sult Performing Organization Address [facility] de Phone Number [facility] [place] [address] * Immunotyping, serum with interpretation (08/19/2024 11:16 PM CDT) [facility] Immunosubtraction Please see comment Comment: NO PARAPROTEIN DETECTED Reviewed and signed by Elmo Luna MD, PhD 08/20/2024 Blood 08/19/2024 11:1 6 PM CDT 08/19/2024 11:32 PM CDT Shailesh Wong MD LAB BLOOD ORDERABLES Final Re sult Performing Organization Address [facility] Co de Phone Number [facility] [place] [address] * (ABNORMAL) Lupus Anticoagulant Panel plus Reflexes (08/19/2024 11:16 PM CDT) PT 12.8 9.7 - 13.0 sec INR 1.18 0.90 - 1.20 [facility] Comment: Interpretive data Oral anticoagulant therapeutic ranges: Venous thromboembolism prophylaxis or treatment: 2.0-3.0 CARDIOLOGY Standard range: 2.0-3.0 High-intensity range: 2.5-3.5 Refer to indication-specific guidelines for appropriate target ranges for prosthetic heart valve replacement. Current interpretive data was last revised on 2019. aPTT 36 28 - 38 sec [facility] Comment: Interpretive Data Heparin therapeutic range: 66.0 - 100.0 seconds. Range based on correlation with therapeutic heparin activity range of 0.3 - 0.7 Units/mL. Current interpretive data was last revised on 2023. DRVVT screen ratio 1.45(H) 0.00 - 1.20 Ratio [facility] DRVVT confirm ratio 1.22 Ratio [facility] DRVVT S/C Ratio 1.18 0.00 - 1.20 Ratio [facility] SCT Screen Ratio 1.47(H) 0.00 - 1.16 Ratio [facility] SCT Confirm Ratio 1.17 Ratio [facility] SCT S/C Ratio 1.25(H) 0.00 - 1.16 Ratio [facility] Lupus anticoagulant, interp Positive( A) [facility] Comment: Interpretive data Lupus [...] Gifty JH, Oryoanl TL, Kim M, De Deborah PG. Update of the guidelines for lupus anticoagulant detection. J Thromb Haemost. 2009; 7:8777-2822. 2. Darrell Hemphill al. International consensus statement on an update of the classification criteria for definite antiphospholipid syndrome (APS). J Thromb Haemost. 2006; 4:295-306. Current interpretive data was last revised on 2018 Blood 08/19/2024 11:1 6 PM CDT 08/20/2024 12:33 AM CDT Shailesh Wong MD LAB BLOOD ORDERABLES Final Re sult Performing Organization Address [facility]/ZIP Co de Phone Number [facility] [place] [address] * Miscellaneous Test Sendout Chemistry (08/19/2024 11:16 PM CDT) Test name Varicella-Zos ter Virus (VZV) Antibody, IgG & IgM, Serum Result 1 Specimen Type: Serum Result: See scanned result in Medical Record. [facility] Blood 08/19/2024 11:1 6 PM CDT 08/21/2024 1:25 PM CDT us Mark Hernandez MD LAB BLOOD ORDERABLES Keyona l Result Performing Organization Address [facility]/ZIP Co de Phone Number [facility] Department [place] [address] * (ABNORMAL) Immunoglobulin free light chains (08/19/2024 11:16 PM CDT) Pathologist [facility] [place] Leander/Lambda ratio [facility] 0.88 0.26 - 1.65 Comment: Interpretive Data The Binding Site FreeLite assay procedure was used. Results from different manufacturers or methods may not be comparable. Serial testing should be performed using the same methods and instrumentation. Current Interpretive Data was last revised on 2023. Leander free light chain [facility] 2.83(H) 0.33 - 1.94 mg/dL [facility] Comment: Interpretive Data The Binding Site FreeLite assay procedure was used. Results from different manufacturers or methods may not be comparable. Serial testing should be performed using the same methods and instrumentation. Current Interpretive Data was last revised on 2023. Lambda free light chain [facility] 3.22(H) 0.57 - 2.63 mg/dL [facility] Comment: Interpretive Data The [...] sult KARMA [facility] Department [place] [address] * (ABNORMAL) Cardiolipin antibody, IgG (08/19/2024 11:16 PM CDT) Pathologist [facility] [place] Cardiolipin, IgG 72.3(H) <=19.9 GPL U/mL Comment: [...] ELISEO. These results were obtained with the [employer] 2200 System. Cardiolipin IgG values obtained with different manufacturers' assay methods may not be used interchangeably. Current interpretive data was last revised on 2016. Blood 08/19/2024 11:1 6 PM CDT 08/19/2024 11:32 PM CDT us Shailesh Wong MD LAB BLOOD ORDERABLES Final Re sult [facility] One [facility] Department [place] [address] * Beta 2 glycoprotein IgM Ab (08/19/2024 11:16 PM CDT) [facility] Beta-2 glycoprotein I, IgM 0.2 <=19.9 units/mL [...] factor. These results were obtained with the [employer] 2200 System. Beta-2 GP1 IgM values obtained with different manufacturers' assay methods may not be used interchangeably. Current interpretive data was last revised on 2016. Blood 08/19/2024 11:1 6 PM CDT 08/19/2024 11:32 PM CDT Shailesh Wong MD LAB BLOOD ORDERABLES Final Re sult Performing Organization Address [facility] de Phone Number [facility] [place] [address] * (ABNORMAL) Beta 2 glycoprotein IgG Ab (08/19/2024 11:16 PM CDT) [facility] Beta-2 glycoprotein I, IgG 69.0(H) <=19.9 units/mL Comment: Interpretive Data Negative: <20 U/mL Positive: > or = 20 U/mL Beta-2 glycoprotein 1 (Beta-2 GP1) antibodies are a more specific marker of thrombotic risk. It is expected that some samples will be ACL positive and Beta- 2 [id number]. In order to improve specificity, the International Congress on Antiphospholipid Antibodies recommends Beta-2 GP1 antibodies of IgG or IgM isotype (> the 99th percentile), obtained twice, at least 12 weeks apart, to support a diagnosis of antiphospholipid syndrome. The cutoff for this assay was developed from data based on the 99th percentile. These results were obtained with the [employer] 2200 System. Beta 2GP1 IgG values obtained with different manufacturers' assay methods may not be used interchangeably. Current interpretive data was last revised on 2016. Blood 08/19/2024 11:1 6 PM CDT 08/19/2024 11:32 PM CDT Shailesh Wong MD LAB BLOOD ORDERABLES Final Re sult Performing Organization Address [facility] de Phone Number [facility] Department [place] [address] * PR3 - proteinase 3, Ab (08/19/2024 11:16 PM CDT) Proteinase 3 ab <0.2 <=0.9 Ab Index Comment: Interpretive Data Negative: <1 Ab Index Positive: > or = 1 Ab Index Current interpretive data was last revised on 2016. Blood 08/19/2024 11:1 6 PM CDT 08/19/2024 11:32 PM CDT Shailesh Wong MD LAB BLOOD ORDERABLES Final Re sult Performing Organization Address [facility] de Phone Number [facility] [place] [address] * MPO - myeloperoxidase antibody (08/19/2024 11:16 PM CDT) Myeloperoxidase ab <0.2 <=0.9 Ab Index Comment: Interpretive Data Negative: <1 Ab Index Positive: > or = 1 Ab Index Current interpretive data was last revised on 2016. Blood 08/19/2024 11:1 6 PM CDT 08/19/2024 11:32 PM CDT Shailesh Wong MD LAB BLOOD ORDERABLES Final Re sult Performing Organization Address [facility] Co de Phone Number [facility] [place] [address] * Cyclic citrul peptide antibody, IgG (08/19/2024 11:16 PM CDT) CCP Ab <0.5 <=2.9 units/mL Comment: Interpretive data Negative: <3 units/mL Positive: > or equal to 3 units/mL Current interpretive data was last revised on 2016. Blood 08/19/2024 11:1 6 PM CDT 08/19/2024 11:32 PM CDT Shailesh Wong MD LAB BLOOD ORDERABLES Final Re sult Performing Organization Address [facility]/ZIP Co de Phone Number KARMA BORGES Mayda [facility] Department [place] [address] * Cardiolipin antibody, IgM (08/19/2024 11:16 PM CDT) Pathologist [facility] [place] Cardiolipin, IgM 0.2 <=19.9 MPL U/mL Comment: [...] antibodies. These results were obtained with the [employer] 2200 System. Cardiolipin IgM values obtained with different manufacturers' assay methods may not be used interchangeably. Current interpretive data was last revised on 2016. Blood 08/19/2024 11:1 6 PM CDT 08/19/2024 11:32 PM CDT Shailesh Wong MD LAB BLOOD ORDERABLES Final Re sult KARMA [facility] Department [place] [address] * (ABNORMAL) Rheumatoid factor (08/19/2024 11:16 PM CDT) [facility] Rheumatoid factor, quant 21.0(H) 0.1 - 15.0 IUnits/mL Blood 08/19/2024 11:1 6 PM CDT 08/19/2024 11:32 PM CDT us Shailesh Wong MD LAB BLOOD ORDERABLES Final Re sult Performing Organization Address [facility]/ZIP Co de Phone Number [facility] [place] [address] * eGFR (08/19/2024 10:24 PM CDT) [facility] eGFR 84 >=60 mL/min/1. 73 m2 Comment: [...] ORDERABLES Keyona l Result Performing Organization Address [facility]/ZIP Co de Phone Number [facility] Department [place] [address] * (ABNORMAL) Calcium, ionized (08/19/2024 10:24 PM CDT) Pathologist [facility] [place] Calcium, Ionized 4.47(L) 4.50 - 5.10 mg/dL Blood 08/19/2024 10:2 4 PM CDT 08/19/2024 10:38 PM CDT Shailesh Wong MD LAB BLOOD ORDERABLES Final Re sult Performing Organization Address [facility]/ZIP Co de Phone Number [facility] [place] [address] * Vitamin D 25 hydroxy (08/19/2024 10:24 PM CDT) [facility] Vitamin D 25-OH 36 30 - 80 ng/mL Blood 08/19/2024 10:2 4 PM CDT 08/19/2024 10:53 PM CDT Shailesh Wong MD LAB BLOOD ORDERABLES Final Re sult Performing Organization Address [facility] Co de Phone Number [facility] Department [place] [address] * (ABNORMAL) CBC without differential (08/19/2024 10:24 PM CDT) [facility] WBC 7.8 3.8 - 9.9 K/cumm Hgb 10.0(L) 11.9 - 15.5 g/dL [facility] Hct 28.6(L) 35.6 - 45.5 % [facility] Plt 196 150 - 400 K/cumm [facility] MPV 9.6 9.1 - 12.3 fL [facility] RBC 3.04(L) 3.90 - 5.20 M/cumm [facility] MCV 94.1 81.3 - 96.4 fL [facility] [facility] MCH 32.9 27.1 - 33.3 pg [facility] MCHC 35.0 32.3 - 35.7 g/dL [facility] RDW CV 14.5 11.1 - 14.9 % [facility] RDW SD 49.3(H) 35.7 - 48.1 fL [facility] NRBC abs 0.00 0.00 - 0.01 K/cumm [facility] Blood 08/19/2024 10:2 4 PM CDT 08/19/2024 10:53 PM CDT Mark Hernandez MD LAB BLOOD ORDERABLES Keyona l Result Performing Organization Address [facility]/ZIP Co de Phone Number [facility] [place] [address] * (ABNORMAL) Basic metabolic panel (08/19/2024 10:24 PM CDT) [facility] Sodium 129(L) 135 - 145 mmol/L Potassium, pl 4.1 3.3 - 4.9 mmol/L [facility] Chloride 95(L) 97 - 110 mmol/L [facility] CO2 24 22 - 32 mmol/L [facility] Anion gap 10 2 - 15 mmol/L [facility] BUN 8 6 - 25 mg/dL [facility] Creatinine 0.76 0.60 - 1.10 mg/dL [facility] Glucose 184 70 - 199 mg/dL [facility] Comment: Interpretive Data Fasting [...] 2022. Calcium 8.8 8.5 - 10.3 mg/dL [facility] Blood 08/19/2024 10:2 4 PM CDT 08/19/2024 10:53 PM CDT Mark Hernandez MD LAB BLOOD ORDERABLES Keyona l Result Performing Organization Address [facility]/State/ZIP Co de Phone Number [facility] [email or web address] [address] * POCT glucose (08/19/2024 9:51 PM CDT) Glucose, POC 181 70 - 199 mg/dL Blood 08/19/2024 9:51 PM CDT 08/19/2024 9:51 PM CDT Shailesh Wong MD LAB POCT ORDERABLES - DEVICE Final Result Performing Organization Address [facility] [place] [address] * POCT glucose (08/19/2024 5:50 PM CDT) Glucose, POC 93 70 - 199 mg/dL Blood 08/19/2024 5:50 PM CDT 08/19/2024 5:50 PM CDT Shailesh Wong MD LAB POCT ORDERABLES - DEVICE Final Result Performing Organization Address [facility] de Phone Number [facility] [email or web address] [address] * US Head Neck Soft Tissue (08/19/2024 [...] agrees with it. Electronically signed by: Milo D. Murdock, M.D. us Shailesh James Lacy MD IMG US PROCEDURES Final Resul t [...] results best viewed via link to PDF [facility] [place] [address] Note to Patients: This report may contain [...] Gender: F : 1955 (Age: 69) Address: [address] [place] [id number] Hospital #: [id number] Taken:08/19/2024 Received:08/19/2024 Reported: 08/21/2024 Patient Type: [facility] Inpatient Service: Neurology Location: [facility] 0113 Physician(s): Gauri Patrick M.D. Tiffany Kay Brocke, [...] Surgical Pathology and Flow Cytometry Departments at [facility] as part of an ongoing quality assurance associate program and in compliance with federally mandated [...] Surgical Pathology and Flow Cytometry Departments of [facility]. It has not been cleared or approved by the U. S. Food and Drug Administration. IMAGES AND SCANNED DOCUMENTS, IF INCLUDED, ONLY VIEWABLE IN PDF VERSION OF REPORT Ramesh Graham MD LAB PATHOLOGY ORDERABLES Final Result PATHOLOGY [facility] 3rd Floor [place], [place] [phone] * Surgical pathology (08/19/2024 12:05 PM CDT) Tissue specimen (specimen) (Skin, biopsy) 08/19/2024 12:05 PM CDT 08/19/2024 12:24 PM CDT Narrative PATHOLOGY [facility] - 08/21/2024 11:22 AM CDT EPIC results best viewed via link to PDF [facility] [place] [address] Note to Patients: This report may contain [...] Gender: F : 1955 (Age: 69) Address: [address] [place] [id number] Hospital #: [id number] Taken:08/19/2024 Received:08/19/2024 Reported: 08/21/2024 Patient Type: [facility] Inpatient Service: Neurology Location: [facility] 0113 Physician(s): MD Janna Winters M.D. Aaron John [...] Dermatopathology Center, Department of Pathology and Immunology, [facility], [address] [place] [address], [address], [address] # [id number] Demetria Loco M.D. History: The patient is [...] Surgical Pathology and Flow Cytometry Departments at [facility] as part of an ongoing quality assurance associate program and in compliance with federally mandated [...] Surgical Pathology and Flow Cytometry Departments of [facility]. It has not been cleared or approved by the U. S. Food and Drug Administration. IMAGES AND SCANNED DOCUMENTS, IF INCLUDED, ONLY VIEWABLE IN PDF VERSION OF REPORT us Shailesh Wong MD LAB PATHOLOGY ORDERABLES Keyona casey Result PATHOLOGY [facility] 3rd Floor [place], [place] [phone] * US VEIN DUPLEX LOWER EXTREMITY RIGHT LIMITED, UNILATERAL (08/19/2024 10:31 AM CDT) Anatomical Region Laterality Modality Vascular Right Ultrasound 08/19/2024 10:2 0 AM CDT Narrative 08/19/2024 6:52 PM CDT [facility] - Department of Vascular Surgery, Vascular Laboratory [address] [place] [address] Lower Extremity Venous Ultrasound Report Patient Name: TOÑA YO : 1955 (69y 1m) Study Date: 08/19/2024 10:20:09 AM Gender: F Tech: [place] Location: [id number] Ref Provider: SHAILESH WONG Quality: Adequate Order [...] Leg, Right, query DVT - FINDINGS: Performing Buckshot Swage Operator: Janna Cruz RVT. Right: Venous Doppler signals [...] above. Electronically Signed By: Tommy Way MD [facility] [phone] 08/19/2024 6:17:28 PM CDT Procedure Note Tommy Way MD - 08/19/2024 [facility] - Department of Vascular Surgery,Vascular Laboratory [address] [place] [address] Lower Extremity Venous Ultrasound Report Patient Name: TOÑA YO : 1955 (69y 1m) Study Date: 08/19/2024 10:20:09 AM Gender: F Tech: [place] Location: [id number] Ref Provider: SHAILESH WONG Quality: Adequate Order Provider: SHAILESH WONG PROCEDURES: Vascular Report: Venous Duplex imaging was performed in the right lower extremity. Thecommon femoral, femoral, popliteal, posterior tibial, peroneal veins were evaluated forpatency, spontaneity and phasicity with Doppler, compression and augmentationmaneuvers. Great saphenous vein proximal at the junction was evaluated with compressionmaneuvers. INDICATIONS: Pain in Leg, Right, query DVT - FINDINGS: Performing [employer]uckshot Swage Operator: Janna Cruz RVT. Right: Venous Doppler signals [...] above. Electronically Signed By: Tommy Way MD [facility] [phone] 08/19/2024 6:17:28 PM CDT Shailesh Wong MD [...] STUDY: 08/19/2024 SCANNER: [facility] Bulbstorm (NV1). This is a high-resolution scanner, which [...] obtained. The study was interpreted on the [employer] workstation. The mean liver SUV (reported for software quality assurance specialist purposes) is 2.2. The total scanned [...] 02/28/2024. Left apical scarring. Procedure Note Connor Verma DO - 08/19/2024 EXAMINATION: TUMOR FDG-PET/CT IMAGING DATE OF STUDY: 08/19/2024 SCANNER: [facility] BiggiFi (NV1). This is a high-resolution scanner, which [...] obtained. The study was interpreted on the [employer] workstation. The mean liver SUV (reported for software quality assurance specialist purposes) is 2.2. The total scanned [...] and agrees with it. Electronically signed by: Christopher A Swingle, DO Shailesh Wong MD IMG PET PROCEDURES Final Resu lt * eGFR (08/19/2024 6:41 AM CDT) Pathologist [facility] eGFR [...] MD LAB BLOOD ORDERABLES Final Re sult [facility] Department [place] [address] * (ABNORMAL) Basic metabolic panel (08/19/2024 6:41 AM CDT) Pathologist [facility] Sodium 130(L) 135 - 145 mmol/L Potassium, pl 3.9 3.3 - 4.9 mmol/L [facility] Chloride 96(L) 97 - 110 mmol/L [facility] CO2 28 22 - 32 mmol/L [facility] Anion gap 6 2 - 15 mmol/L [facility] BUN 8 6 - 25 mg/dL [facility] Creatinine 0.68 0.60 - 1.10 mg/dL [facility] Glucose 98 70 - 199 mg/dL [facility] Comment: Interpretive Data Fasting [...] 2022. Calcium 8.8 8.5 - 10.3 mg/dL [facility] Blood 08/19/2024 6:41 AM CDT 08/19/2024 6:53 AM CDT Shailesh Wong MD LAB BLOOD ORDERABLES Final Re sult Performing Organization Address [facility] de Phone Number [facility] Department [place] [address] * Sodium, urine, random (08/19/2024 1:39 AM CDT) Sodium, ur <20 mmol/L Comment: Repeated and Verified Interpretive Data No reference range established. Current interpretive data was last revised 2018. Urine 08/19/2024 1:39 AM CDT 08/19/2024 2:38 AM CDT Shailesh Wong MD LAB URINE ORDERABLES Final Re sult Performing Organization Address [facility] de Phone Number [facility] [email or web address] [address] * Osmolality, urine (08/19/2024 1:39 AM CDT) Osmo, ur 187 mOsm/kg Urine 08/19/2024 1:39 AM CDT 08/19/2024 2:38 AM CDT Shailesh Wong MD LAB URINE ORDERABLES Final Re sult [facility] Department [place] [address] * Neuromuscular Testing (08/19/2024 12:00 AM CDT) Serum 08/19/2024 08/20/2024 2:1 3 PM CDT Narrative 08/31/2024 1:07 PM CDT Please click on the PDF link to view the report containing this result Mark Hernandez MD LAB PATHOLOGY ORDERABLES Final Result * Urinalysis reflex to microscopic and culture Urine (08/18/2024 10:30 PM CDT) Color, ur Straw Yellow Clarity, ur Clear Clear [facility] Specific gravity, ur 1.012 1.003 - 1.030 [facility] pH, urine 6.5 [facility] Comment: Interpretive Data U rine pH is affected by diet, medications, systemic acid-base disturbances, and renal tubular function. pH may affect urinary stone formation. For example, urine pH below 6.0 may help reduce the tendency for calcium phosphate stones and pH greater than 6.0 may reduce the tendency for uric acid stone formation. Source: [email or web address] [email or web address] Current Interpretive Data was last revised on 2017 Protein, ur ql Negative Negative [facility] Glucose, ur ql Negative Negative [facility] Ketones, ur Negative Negative [facility] Bilirubin, ur Negative Negative [facility] Blood, ur Negative Negative [facility] Urobilinogen, ur <2.0 <2.0 mg/dL [facility] Nitrite, ur Negative Negative [facility] Leukocyte esterase, ur Negative Negative [facility] UA reflex comment Reflex conditions for microscopic UA and culture not met. [facility] Urine 08/18/2024 10:3 0 PM CDT 08/18/2024 11:03 PM CDT Shailesh Wong MD LAB MICROBIOLOGY - GENERAL OR DERABLES Final Result Performing Organization Address City/[facility]/ZIP Co de Phone Number [facility] Department [place] [address] * eGFR (08/18/2024 10:01 PM CDT) eGFR [...] MD LAB BLOOD ORDERABLES Keyona l Result [facility] [place] [address] * Critical Result Callback Chemistry (08/18/2024 10:01 PM CDT) Date Notified [id number] Time Notified 5 [facility] TestName Levy BORGES Called/Read Back Ashlee PARADA [facility] Credentials RN [facility] Called By JILL PARADA [facility] Blood 08/18/2024 10:0 1 PM CDT 08/18/2024 10:12 PM CDT Joby Chaudhry MD LAB BLOOD ORDERABLES Final Result [facility] Department [place] [address] * Respiratory pathogen panel Nasopharyngeal (08/18/2024 10:01 PM CDT) Pathologist [facility] Influenza A RNA Not Detected Not Detected Influenza B RNA Not Detected Not Detected [facility] RSV RNA Not Detected Not Detected [facility] COVID-19 RNA Not Detected Not Detected [facility] Coronavirus 229E RNA Not Detected Not Detected [facility] Coronavirus HKU1 RNA Not Detected Not Detected [facility] Coronavirus NL63 RNA Not Detected Not Detected [facility] Coronavirus OC43 RNA Not Detected Not Detected [facility] Adenovirus DNA Not Detected Not Detected [facility] Metapneumovirus RNA Not Detected Not Detected [facility] Rhinovirus/Enterov irus RNA Not Detected Not Detected [facility] Parainfluenza 1 RNA Not Detected Not Detected [facility] Parainfluenza 2 RNA Not Detected Not Detected [facility] Parainfluenza 3 RNA Not Detected Not Detected [facility] Parainfluenza 4 RNA Not Detected Not Detected [facility] B. pertussis DNA Not Detected Not Detected [facility] B. parapertussis DNA Not Detected Not Detected [facility] C. pneumoniae DNA Not Detected Not Detected [facility] M. pneumoniae DNA Not Detected Not Detected [facility] Nasopharyngeal 08/18/2024 10 :01 PM CDT 08/18/2024 10:19 PM CDT Narrative [facility] - 08/18/2024 11:15 PM CDT Is the Patient experiencing symptoms consistent with COVID?->No Surveillance testing for transplant patient?->No Interpretive Data The [employer] FilmArray Respiratory Panel (RP2.1) assay is a [...] assay has FDA clearance for testing of WINDLACE MACHINE OPERATOR swabs. The performance of additional specimen types has been assessed by the performing laboratory. The performance characteristics of this assay have been determined by [facility] Molecular Infectious Disease Laboratory. Current interpretive data was last revised on 22. us Shailesh Wong MD LAB MICROBIOLOGY - GENERAL OR DERABLES Final Result [facility] Department [place] [address] * (ABNORMAL) CBC without differential (08/18/2024 10:01 PM CDT) Pathologist [facility] WBC 9.4 3.8 - 9.9 K/cumm Hgb 10.2(L) 11.9 - 15.5 g/dL [facility] Hct 29.7(L) 35.6 - 45.5 % [facility] Plt 183 150 - 400 K/cumm [facility] MPV 9.1 9.1 - 12.3 fL [facility] RBC 3.17(L) 3.90 - 5.20 M/cumm [facility] MCV 93.7 81.3 - 96.4 fL [facility] MCH 32.2 27.1 - 33.3 pg [facility] MCHC 34.3 32.3 - 35.7 g/dL [facility] RDW CV 14.3 11.1 - 14.9 % [facility] RDW SD 48.8(H) 35.7 - 48.1 fL [facility] NRBC abs 0.00 0.00 - 0.01 K/cumm [facility] Blood 08/18/2024 10:0 1 PM CDT 08/18/2024 10:12 PM CDT us Mark Hernandez MD LAB BLOOD ORDERABLES Keyona l Result Performing Organization Address City/[facility]/ZIP Co de Phone Number [facility] [place] [address] * (ABNORMAL) Osmolality, blood (08/18/2024 10:01 PM CDT) Pathologist [facility] [place] Osmo 258(C) 275 - 300 mOsm/kg Blood 08/18/2024 10:0 1 PM CDT 08/18/2024 10:12 PM CDT us Joby Chaudhry MD LAB BLOOD ORDERABLES Final Result Performing Organization Address City/[facility]/ZIP Co de Phone Number [facility] [place] [address] * (ABNORMAL) Basic metabolic panel (08/18/2024 10:01 PM CDT) Sodium 127(L) 135 - 145 mmol/L Potassium, pl 3.9 3.3 - 4.9 mmol/L [facility] Chloride 91(L) 97 - 110 mmol/L [facility] CO2 27 22 - 32 mmol/L [facility] Anion gap 9 2 - 15 mmol/L [facility] BUN 10 6 - 25 mg/dL [facility] Creatinine 0.73 0.60 - 1.10 mg/dL [facility] Glucose 99 70 - 199 mg/dL [facility] Comment: Interpretive Data Fasting [...] 2022. Calcium 9.1 8.5 - 10.3 mg/dL [facility] Blood 08/18/2024 10:0 1 PM CDT 08/18/2024 10:12 PM CDT us Mark Hernandez MD LAB BLOOD ORDERABLES Keyona casey Result [facility] Department [place] [address] * XR Foot Right 3 or More [...] is unchanged from CT 02/28/2024. Dictated by: Cnonor Crews M.D. The radiology attending physician has [...] 3:46 PM CDT 08/18/2024 5:07 PM CDT Iván HARSHARACHEL [facility] - 08/23/2024 7:01 [...] performance characteristics have been verified by the [facility] Microbiology Laboratory. For questions about this culture, contact the Microbiology Laboratory at [phone]. Interpretive data was last revised on 24. Shailesh Wong MD LAB MICROBIOLOGY - GENERAL OR DERABLES Final Result Performing Organization Address City/[facility]/ZIP Co de Phone Number [facility] B[facility]da [facility] Department [place] [address] * Blood culture Blood Arm, right (08/18/2024 3:46 PM CDT) Report Final Report: No growth Blood (Arm, right) 08/18/2024 3:46 PM CDT 08/18/2024 5:07 PM CDT Narrative [facility] - 08/23/2024 7:01 AM CDT Collection->Peripheral 1. [...] performance characteristics have been verified by the [facility] Microbiology Laboratory. For questions about this culture, contact the Microbiology Laboratory at [phone]. Interpretive data was last revised on 24. Shailesh Wong MD LAB MICROBIOLOGY - GENERAL OR DERABLES Final Result Performing Organization Address City/[facility]/ZIP Co de Phone Number [facility] Department [place] [address] * Flow Leukemia/Lymphoma CSF (08/18/2024 3:24 PM CDT) [place] Stain Test Completed Leukemia/Lymp mati Result See separate Surgical Pathology report. [facility] CSF 08/18/2024 3:24 PM CDT 08/18/2024 4:45 PM CDT us Shailesh Wong MD LAB PATHOLOGY ORDERABLES Keyona carmela Result [facility] [place] [address] * Surgical pathology (08/18/2024 3:23 PM CDT) Cerebrospinal Fluid (Cytology) 08/18/2024 3:23 PM CDT 08/18/2024 4:47 PM CDT Narrative 08/19/2024 1:02 PM CDT EPIC results best viewed via link to PDF [facility] [place] [address] Note to Patients: This report may contain [...] Gender: F : 1955 (Age: 69) Address: [address] [place] [id number] Hospital #: [id number] Taken:08/18/2024 Received:08/18/2024 Reported: 08/19/2024 Patient Type: [facility] [...] flow cytometry specimen was examined for internal software quality assurance specialist purposes. Flow cytometry was performed using antibodies to the following cellular antigens: CD45, CD34, CD19, CD20, Leander, Lambda, CD10, CD5, CD200, CD38. Total antigens [...] Surgical Pathology and Flow Cytometry Departments at [facility] as part of an ongoing quality assurance associate program and in compliance with federally mandated [...] Surgical Pathology and Flow Cytometry Departments of [facility]. It has not been cleared or [...] ORDERABLES Keyona l Result Performing Organization Address [facility] Co de Phone Number [facility] Department [place] [address] * Cell count w/reflex diff, CSF (08/18/2024 [...] OR DERABLES Final Result Performing Organization Address City/[facility]/ZIP Co de Phone Number [facility] Department [place] [address] * (ABNORMAL) Cell count w/reflex diff, CSF (08/18/2024 3:07 PM CDT) Tube Number, CSF Tube 1 Color, CSF Colorless Colorless [facility] Clarity, CSF Clear Clear [facility] Xanthochromia , CSF Absent Absent [facility] Nucleated cells, CSF 4 0 - 5 /cumm [facility] RBC, CSF 51(H) 0 - 0 /cumm [facility] CSF 08/18/2024 3:07 PM CDT 08/18/2024 3:47 PM CDT Shailesh Wong MD LAB BODY FLUIDS AND STOOLS OR DERABLES Final Result [facility] [place] [address] * Flow Leukemia/Lymphoma CSF (08/18/2024 3:07 PM CDT) Pathologist [facility] [place] Leukemia/Lymph elly Result See comment Comment:Credited, duplicate test. CSF 08/18/2024 3:07 PM CDT 08/19/2024 4:17 PM CDT Shailesh Wong MD LAB PATHOLOGY ORDERABLES Keyona l Result Performing Organization Address [facility] Co de Phone Number [facility] Department [place] [address] * Miscellaneous Test Sendout Chemistry (08/18/2024 3:07 PM CDT) Pathologist [facility] Test name Interleukin-6 (CSF) Result 1 Specimen Type: CSF Result: See scanned result in Medical Record. [facility] CSF 08/18/2024 3:07 PM CDT 08/22/2024 4:34 PM CDT Mark Hernandez MD LAB BLOOD ORDERABLES Keyona l Result Performing Organization Address City/[facility]/ZIP Co de Phone Number [facility] [place] [address] * Miscellaneous Test Sendout Chemistry (08/18/2024 3:07 PM CDT) Test name Varicella-Zos ter Virus Antibody, IgM by MARLY, CSF Result 1 Specimen Type: CSF Result: See scanned result in Medical Record. [facility] CSF 08/18/2024 3:07 PM CDT 08/21/2024 1:26 PM CDT us Mark Hernandez MD LAB BLOOD ORDERABLES Keyona l Result Performing Organization Address [facility] Co de Phone Number [facility] Department [place] [address] * Mycology (fungal) culture and Cryptococcus antigen, CSF CSF (08/18/2024 3:07 PM CDT) Pathologist [facility] [place] Report Final Report: No growth of fungus CSF 08/18/2024 3:07 PM CDT 08/18/2024 4:16 PM CDT Narrative [facility] - 09/15/2024 6:57 AM CDT The Cryptococcal Antigen is resulted under a separate test. Please see C ryptococcal Antigen, CSF for result. Testing performed by [facility] Microbiology Laboratory ([phone]). us Shailesh Wong MD LAB MICROBIOLOGY - GENERAL OR DERABLES Final Result Performing Organization Address [facility] de Phone Number [facility] Department [place] [address] * Oligoclonal banding (08/18/2024 3:07 PM CDT) Pathologist [facility] Oligoclonal bands, CSF 1 bands [facility] Oligoclonal bands 1 bands [facility] [facility] Oligoclonal bands, interp 0 <2 bands [facility] Comment: The oligoclonal band assay detected no unique IgG bands in the CSF. This is a negative result. Test Performed by: [facility] [address] [place] [address] Dry Cans Operator: Dawit Avendano Ph.D.; CLIA# [id number] Blood/Cerebrospi nal fluid 08/18/2024 3:07 PM CDT 08/18/2024 4:15 PM CDT Shailesh Wong MD LAB BLOOD ORDERABLES Final Re sult [facility] [place] [address] [facility] ref [facility] * (ABNORMAL) IgG index, CSF and blood (08/18/2024 3:07 PM CDT) Pathologist [facility] [place] Immunoglobulin G 1760(H) 767 - 1590 mg/dL [facility] ref [facility] Albumin 3400(L) 3500 - 5000 mg/dL [facility] Comment: Test Performed by: [facility] [address] [place] [address] Dry Cans Operator: Dawit Avendano Ph.D.; CLIA# [id number] Test Performed by: [facility] [address] [place] [address] Dry Cans Operator: Dawit Avendano Ph.D.; CLIA# [id number] IgG, CSF 3.5 <=8.1 mg/dL [facility] Albumin, CSF 14.9 <=27.0 mg/dL [facility] CSF IgG/albumin ratio, CSF 0.23(H) <=0.21 [facility] IgG/Albumin Ratio, Serum 0.52(H) <=0.40 [facility] IgG index, CSF 0.44 <=0.70 [facility] IgG synthesis rate, CSF 0.00 <=12 mg/24H [facility] Albumin quotient, CSF/Serum 4.38 <=14 [facility] Blood/Cerebrospi nal fluid 08/18/2024 3:07 PM CDT 08/18/2024 4:15 PM CDT Shailesh Wong MD LAB BODY FLUIDS AND STOOLS OR DERABLES Final Result KARMA BORGESH [facility] Department [place] [address] [facility] ref [facility] * Cryptococcal antigen, CSF CSF (08/18/2024 3:07 PM CDT) [facility] Cryptococcal Antigen Negative Negative Comment: The cryptococcal [...] OR DERABLES Final Result Performing Organization Address [facility]/ZIP Co de Phone Number [facility] [place] [address] * Bacterial culture and gram stain, CSF CSF (08/18/2024 3:07 PM CDT) [facility] Direct Specimen Exam Stain: Cytospin Gram stain shows: No polymorphonuclear leukocytes seen. No organisms seen. Report Final Report: No growth [facility] CSF 08/18/2024 3:07 PM CDT 08/18/2024 4:16 PM CDT Narrative [facility] - 08/23/2024 11:12 AM CDT Testing performed by [facility] Microbiology Laboratory ([phone]). Shailesh Wong MD LAB MICROBIOLOGY - GENERAL OR DERABLES Final Result [facility] Mayda [facility] [place] [address] * Protein, total, CSF (08/18/2024 3:07 PM CDT) Pathologist [facility] [place] Protein, CSF 32 5 - 45 mg/dL Comment:Cells present. Resul ts may be falsely elevated. CSF 08/18/2024 3:07 PM CDT 08/18/2024 4:00 PM CDT Shailesh Wong MD LAB BODY FLUIDS AND STOOLS OR DERABLES Final Result Performing Organization Address [facility] de Phone Number KARMA [facility] [place] [address] * Glucose, CSF (08/18/2024 3:07 PM CDT) [facility] Glucose, CSF 57 mg/dL Comment: Cells present. [...] OR DERABLES Final Result Performing Organization Address [facility] de Phone Number [facility] [address] * Complement, total (08/18/2024 3:07 PM CDT) [facility] Complement hemolytic 63 30 - 75 units/mL [facility] ref Lab Comment: Test Performed by: [facility] [address] [place] [address] Dry Cans Operator: Dawit Avendano Ph.D.; CLIA# [id number] Blood 08/18/2024 3:07 PM CDT 08/18/2024 4:16 PM CDT Shailesh Wong MD LAB BLOOD ORDERABLES Final Re sult Performing Organization Address [facility] Co de Phone Number KARMA PALUMBO [facility] Department [place] [address] [facility] ref [facility] * (ABNORMAL) C2 complement (08/18/2024 3:07 PM CDT) [facility] Complement C2, functional 62(H) 25 - 47 units/mL [facility] ref [facility] Comment: ADDITIONAL INFORMATION This test was developed and its performance characteristics determined by [facility] in a manner consistent with CLIA requirements. This test has not been cleared or approved by the U.S. Food and Drug Administration. Complement C2 See Footnote KARMA PALUMBO Comment: RESULT: Results are not consistent with homozygous deficiency. Test Performed by: [facility] [address] [place] [address] Dry Cans Operator: Dawit Avendano Ph.D.; CLIA# [id number] Blood 08/18/2024 3:07 PM CDT 08/18/2024 4:15 PM CDT Shailesh Wong MD LAB BLOOD ORDERABLES Final Re sult Performing Organization Address [facility] Co de Phone Number KARMA PALUMBO [facility] Department [place] [address] [facility] ref [facility] * T-SPOT.TB Blood (08/18/2024 12:57 PM CDT) [facility] T-SPOT.TB Negative SeeBelow Comment: Normal Value: Negative [...] test. T-SPOT.TB Panel A Spot Count 0 [facility] T-SPOT.TB Panel B Spot Count 0 [facility] T-SPOT.TB Negative Control Passed [facility] T-SPOT.TB Positive Control Passed [facility] Comment: Test Performed at: [facility] [address] [place] [phone] GLORIA WAGONER,PHD Blood 08/18/2024 12:5 7 PM CDT 08/18/2024 1:08 PM CDT Shailesh Wong MD LAB MICROBIOLOGY - GENERAL OR DERABLES Final Result [facility] Department [place] [address] * (ABNORMAL) Immunoglobulin IgG subclasses (08/18/2024 12:57 PM CDT) IgG 1721(H) 767 - 1590 mg/dL [facility] Lab IgG, fraction 1 987(H) 341 - 894 mg/dL [facility] IgG, fraction 2 457 171 - 632 mg/dL [facility] IgG, fraction 3 103.5 18.4 - 106.0 mg/dL [facility] IgG, fraction 4 84.0 2.4 - 121.0 mg/dL [facility] Comment: Test Performed by: [facility] [address] [place] [address] Dry Cans Operator: Dawit Avendano Ph.D.; CLIA# [id number] Blood 08/18/2024 12:5 7 PM CDT 08/18/2024 4:15 PM CDT Shailesh Wong MD LAB BLOOD ORDERABLES Final Re sult Performing Organization Address [facility] de Phone Number KARMA [facility] Department [place] [address] [facility] ref Lab * BRANDT ab eval w/reflex (08/18/2024 12:57 PM CDT) Pathologist [facility] [place] BRANDT ab Negative Negative Comment: Interpretive Data Positive Screens will be reflexed to specific testing for Antibodies against the following antigens: Milady-1 Ab, HALF SOLE FITTER Ab, Scl-70 Ab, Kelley Ab, SS-A/Ro Ab, and SS- B/La Ab. Further testing for dsDNA, Centromere, or Ribosomal P antibodies is suggested in patient with a positive screen and negative specific antibodies. Current interpretive data was last revised on 2022. Blood 08/18/2024 12:5 7 PM CDT 08/18/2024 1:08 PM CDT Shailesh Wong MD LAB BLOOD ORDERABLES Final Re sult Performing Organization Address [facility] de Phone Number KARMA [facility] Department [place] [address] * (ABNORMAL) Immune competence (08/18/2024 12:57 PM CDT) Pathologist [facility] [place] CD3 pct 76 60 - 88 % CD3 Absolute 802 661 - 1,963 cells/mcL [facility] CD4 pct 61 31 - 64 % [facility] CD4 Absolute 627 365 - 1,294 cells/mcL [facility] CD8 pct 16 12 - 40 % [facility] CD8 Absolute 162(L) 187 - 781 cells/mcL [facility] CD19 pct 23 6 - 25 % [facility] CD19 Absolute 245 86 - 488 cells/mcL [facility] [id number] pct 1(L) 5 - 25 % [facility] [id number] Absolute <35(L) 76 - 467 cells/mcL [facility] Comment:Verified CD4/CD8 ratio 3.8 0.9 - 4.4 [facility] Blood 08/18/2024 12:5 7 PM CDT 08/18/2024 1:08 PM CDT Shailesh Wong MD LAB BLOOD ORDERABLES Final Re sult Performing Organization Address [facility] de Phone Number [facility] [place] [address] * Angiotensin converting enzyme (08/18/2024 12:57 PM CDT) Pathologist [facility] [place] MONICA 24 10 - 55 Units/L Blood 08/18/2024 12:5 7 PM CDT 08/18/2024 1:08 PM CDT Shailesh Wong MD LAB BLOOD ORDERABLES Final Re sult Performing Organization Address [facility] de Phone Number [facility] [place] [address] * (ABNORMAL) IgA (08/18/2024 12:57 PM CDT) Pathologist [facility] [place] Immunoglobulin A 492(H) 70 - 400 mg/dL Blood 08/18/2024 12:5 7 PM CDT 08/18/2024 1:08 PM CDT Shailesh Wong MD LAB BLOOD ORDERABLES Final Re sult Performing Organization Address [facility] de Phone Number [facility] [place] [address] * IgM (08/18/2024 12:57 PM CDT) Pathologist [facility] [place] Immunoglobulin M 41 40 - 230 mg/dL Blood 08/18/2024 12:5 7 PM CDT 08/18/2024 1:08 PM CDT Shailesh Wong MD LAB BLOOD ORDERABLES Final Re sult [facility] [place] [address] * Cytology (08/18/2024 12:35 PM CDT) Cerebrospinal Fluid (Cytology) 08/18/2024 12:35 PM CDT 08/18/2024 5:35 PM CDT Narrative 08/19/2024 5:20 PM CDT EPIC results best viewed via link to PDF [facility] [place] [address] Note to Patients: This report may contain [...] Gender: F : 1955 (Age: 69) Address: [address] [place], [place] [id number] Hospital #: [id number] Taken:08/18/2024 Received:08/18/2024 Reported: 08/19/2024 Patient Type: [facility] Inpatient Service: Neurology Location: [facility] 0113 Physician(s): Gauri Rodrigues M.D. Shailesh Wong MD FINAL DIAGNOSIS A. Cerebrospinal fluid: - Negative for malignancy hrk/08/19/2024 17:20 By this signature, I attest that the above diagnosis is based upon my personal examination of the slides(and/or other material indicated in the diagnosis). Abigail R. Krigman, M.D. Report Electronically Reviewed and Signed Out [...] Surgical Pathology and Flow Cytometry Departments at [facility] as part of an ongoing quality assurance associate program and in compliance with federally mandated [...] Surgical Pathology and Flow Cytometry Departments of [facility]. It has not been cleared or approved by the U. S. Food and Drug Administration. Johnson Rico MD LAB CYTOLOGY ORDERABLES Final Result * C4 complement (08/18/2024 10:33 AM CDT) Complement C4 36.0 10.0 - 40.0 mg/dL Blood 08/18/2024 10:3 3 AM CDT 08/18/2024 10:48 AM CDT Shailesh Wong MD LAB BLOOD ORDERABLES Final Re sult [facility] [place] [address] * Aldolase (08/18/2024 10:33 AM CDT) Aldolase 7.2 0.1 - 8.0 Units/L Blood 08/18/2024 10:3 3 AM CDT 08/18/2024 10:48 AM CDT Shailesh Wong MD LAB BLOOD ORDERABLES Final Re sult Performing Organization Address [facility]/ZIP Co de Phone Number [facility] [place] [address] * C3 complement (08/18/2024 10:33 AM CDT) [facility] Complement C3 151.0 90.0 - 180.0 mg/dL Blood 08/18/2024 10:3 3 AM CDT 08/18/2024 10:48 AM CDT Shailesh Wong MD LAB BLOOD ORDERABLES Final Re sult Performing Organization Address [facility]/ZIP Co de Phone Number [facility] [place] [address] * Creatine kinase (CK), total (08/18/2024 10:33 AM CDT) [facility] CK 52 30 - 200 Units/L Blood 08/18/2024 10:3 3 AM CDT 08/18/2024 10:48 AM CDT Shailseh Wong MD LAB BLOOD ORDERABLES [place] [address] * Beta 2 transferrin, body fluid (08/18/2024 5:25 AM CDT) Beta-2 transferrin, fld Negative [facility] ref Lab Comment: REFERENCE VALUE Negative, no beta-2 transferrin (spinal fluid) detected. ADDITIONAL INFORMATION This test was developed and its performance characteristics determined by [facility] in a manner consistent with CLIA requirements. This test has not been cleared or approved by the U.S. Food and Drug Administration. Test Performed by: [facility] [place] [address] Dry Cans Operator: Dawit Avendano Ph.D.; CLIA# [id number] Fluid 08/18/2024 5:25 AM CDT 08/18/2024 7:30 AM CDT us Shailesh Wong MD LAB BODY FLUIDS AND STOOLS OR DERABLES Final Result [facility] Department of Laboratories [place], [place] [id number] [facility] Lab * [place] CRITICAL CARE ILL/INJURED PATIENT INIT 30-74 MIN [...] MICROBIOLOGY - GENERAL O RDERABLES Final Result [facility] One [facility] [place] [address] * (ABNORMAL) JEAN CLAUDE ab ql w/rflx [...] on 2020. JEAN CLAUDE, quant 1:640 titer [facility] JEAN CLAUDE, interp Speckled(A) [facility] Blood 08/17/2024 8:34 PM CDT 08/17/2024 8:55 PM CDT us Malika Mishra MD LAB BLOOD ORDERABLES Final R esult Performing Organization Address [facility] Co de Phone Number [facility] [place] [address] * PR3 - proteinase 3, Ab (08/17/2024 8:34 PM CDT) Proteinase 3 ab <0.2 <=0.9 Ab Index Comment: Interpretive Data Negative: <1 Ab Index Positive: > or = 1 Ab Index Current interpretive data was last revised on 2016. Blood 08/17/2024 8:34 PM CDT 08/17/2024 8:55 PM CDT us Malika Mishra MD LAB BLOOD ORDERABLES Final R esult Performing Organization Address [facility] Co de Phone Number [facility] [place] [address] * MPO - myeloperoxidase antibody (08/17/2024 8:34 PM CDT) Pathologist [facility] [place] Myeloperoxidase ab <0.2 <=0.9 Ab Index Comment: Interpretive Data Negative: <1 Ab Index Positive: > or = 1 Ab Index Current interpretive data was last revised on 2016. Blood 08/17/2024 8:34 PM CDT 08/17/2024 8:55 PM CDT us Malika Mishra MD LAB BLOOD ORDERABLES Final R esult Performing Organization Address [facility] Co de Phone Number [facility] [place] [address] * HIV 1/2 Antibody plus p24 Antigen Blood (08/17/2024 8:34 PM CDT) HIV 1/2 ab + p24 ag Nonreactive Nonreactive Comment:Nonreactive for HIV- 1 antigen and HIV-1/HIV-2 antibodies. No laboratory evidence of HIV infection. If acute HIV infection is suspected, consider testing for HIV-1 RNA. Current interpretive data was last revised on 22. Blood 08/17/2024 8:34 PM CDT 08/17/2024 9:16 PM CDT Malika Mishra MD LAB MICROBIOLOGY - GENERAL O RDERABLES Final Result Performing Organization Address [facility] Co de Phone Number [facility] [place] [address] * (ABNORMAL) Anti-Neutrophilic Cytoplasmic Antibody (ANCA) with Reflex to MPO and PR3 Abs (58:34 PM CDT) [facility] ANCA Indetermi debora(A) Negative Comment:Indeterminate for P- ANCA - Results by antigen specific immunoassay (MPO & PR3) to follow. May indicate ulcerative colitis or Crohn's disease. Blood 08/17/2024 8:34 PM CDT 08/17/2024 8:55 PM CDT Malika Mishra MD LAB BLOOD ORDERABLES Final R esult Performing Organization Address [facility] de Phone Number [facility] [place] [address] * Methylmalonic acid, serum (08/17/2024 8:34 PM CDT) [facility] MMA 0.11 <=0.40 nmol/mL [facility] ref Lab Comment: ADDITIONAL INFORMATION This test was developed and its performance characteristics determined by [facility] in a manner consistent with CLIA requirements. This test has not been cleared or approved by the U.S. Food and Drug Administration. Test Performed by: [facility] - [address] [address] Dry Cans Operator: Dawit Avendano Ph.D.; CLIA# [id number] Blood 08/17/2024 8:34 PM CDT 08/17/2024 8:46 PM CDT Malika Mishra MD LAB BLOOD ORDERABLES Final R esult Performing Organization Address [facility] Co de Phone Number [facility] [place] [address] [facility] ref Lab * RPR Blood (08/17/2024 8:34 PM CDT) RPR Nonreactive Nonreactive Blood 08/17/2024 8:34 PM CDT 08/17/2024 8:55 PM CDT Malika Mishra MD LAB MICROBIOLOGY - GENERAL O RDERABLES Final Result Performing Organization Address [facility] de Phone Number [facility] [place] [address] * Vitamin B1 (08/17/2024 8:34 PM CDT) Thiamine (Vit B1) 125 70 - 180 nmol/L [facility] ref Lab Comment: ADDITIONAL INFORMATION This test was developed and its performance characteristics determined by [facility] in a manner consistent with CLIA requirements. This test has not been cleared or approved by the U.S. Food and Drug Administration. Test Performed by: [facility] [address] [place] [address] Dry Cans Operator: Dawit Avendano Ph.D.; CLIA# [id number] Blood 08/17/2024 8:34 PM CDT 08/17/2024 8:46 PM CDT us Malika Mishra MD LAB BLOOD ORDERABLES Final R esult Performing Organization Address [facility] Co de Phone Number [facility] [place] [address] [facility] ref Lab * Homocysteine (08/17/2024 8:34 PM CDT) Homocysteine 8.5 0.0 - 15.0 mcmol/L Blood 08/17/2024 8:34 PM CDT 08/17/2024 8:55 PM CDT us Malika Mishra MD LAB BLOOD ORDERABLES Final R esult Performing Organization Address [facility] Co de Phone Number [facility] [place] [address] * Folate (08/17/2024 8:34 PM CDT) Folic acid >20.0 >=5.0 ng/mL Blood 08/17/2024 8:34 PM CDT 08/17/2024 8:55 PM CDT us Malika Mishra MD LAB BLOOD ORDERABLES Final R esult Performing Organization Address [facility] Co de Phone Number [facility] [place] [address] * (ABNORMAL) Ferritin (08/17/2024 8:34 PM CDT) Ferritin 310(H) 13 - 150 ng/mL Blood 08/17/2024 8:34 PM CDT 08/17/2024 8:55 PM CDT us Mark Hernandez MD LAB BLOOD ORDERABLES Keyona l Result Performing Organization Address [facility] Co de Phone Number [facility] [place] [address] * Vitamin B12 (08/17/2024 8:34 PM CDT) Vitamin B12 657 230 - 1,250 pg/mL Blood 08/17/2024 8:34 PM CDT 08/17/2024 8:55 PM CDT us Malika Mishra MD LAB BLOOD ORDERABLES Final R esult [facility] May[facility] [place] [address] * MRI Brain MRA Head MRA Neck [...] 3. Magnetic resonance angiography (MRA) of the ozcfqu-qn-Mycmll without and with contrast 4. Magnetic resonance [...] optic nerves. Magnetic resonance angiography of the hqvuoq-hf-Wczzjg was performed using a separate data acquisition with a non-contrast tcls-pr-llmdea technique and a post-contrast technique to produce axial thin-slice source images. These images were then used to generate maximum intensity projection (MIP) images. Magnetic resonance angiography of the neck was performed using a separate data acquisition with a non-contrast fmyc-eq-qycuta technique and a post-contrast technique to produce [...] 3. Magnetic resonance angiography (MRA) of the dafjjn-ad-Eldaed without and with contrast 4. Magnetic resonance [...] optic nerves. Magnetic resonance angiography of the gxmzac-cg-Tzgzmo was performed using a separate data acquisition with a non-contrast qgit-yo-twwjww technique and a post-contrast technique to produce axial thin-slice source images. These images were then used to generate maximum intensity projection (MIP) images. Magnetic resonance angiography of the neck was performed using a separate data acquisition with a non-contrast qzmq-yk-cdggmh technique and a post-contrast technique to produce [...] Maureen Arenas M.D. us Malika Mishra MD [facility] MRI PROCEDURES Final Res ult * MRI [...] 3. Magnetic resonance angiography (MRA) of the vuvpbo-cd-Lawpvy without and with contrast 4. Magnetic resonance [...] optic nerves. Magnetic resonance angiography of the wgmgry-pt-Cdhwuu was performed using a separate data acquisition with a non-contrast rwno-zo-nbwgwa technique and a post-contrast technique to produce axial thin-slice source images. These images were then used to generate maximum intensity projection (MIP) images. Magnetic resonance angiography of the neck was performed using a separate data acquisition with a non-contrast ybrb-md-fmtupd technique and a post-contrast technique to produce [...] 3. Magnetic resonance angiography (MRA) of the ewksoj-bs-Kvyefm without and with contrast 4. Magnetic resonance [...] optic nerves. Magnetic resonance angiography of the saazsw-nn-Wbgglx was performed using a separate data acquisition with a non-contrast yxpb-fx-gqxuoz technique and a post-contrast technique to produce axial thin-slice source images. These images were then used to generate maximum intensity projection (MIP) images. Magnetic resonance angiography of the neck was performed using a separate data acquisition with a non-contrast irhn-cu-kzequv technique and a post-contrast technique to produce [...] Influenza B RNA Not Detected Not Detected [facility] RSV RNA Not Detected Not Detected [facility] COVID-19 RNA Not Detected Not Detected [facility] Coronavirus 229E RNA Not Detected Not Detected [facility] Coronavirus HKU1 RNA Not Detected Not Detected [facility] Coronavirus NL63 RNA Not Detected Not Detected [facility] Coronavirus OC43 RNA Not Detected Not Detected [facility] Adenovirus DNA Not Detected Not Detected [facility] Metapneumovirus RNA Not Detected Not Detected [facility] Rhinovirus/Enterov irus RNA Not Detected Not Detected [facility] Parainfluenza 1 RNA Not Detected Not Detected [facility] Parainfluenza 2 RNA Not Detected Not Detected [facility] Parainfluenza 3 RNA Not Detected Not Detected [facility] [facility] Parainfluenza 4 RNA Not Detected Not Detected [facility] B. pertussis DNA Not Detected Not Detected [facility] B. parapertussis DNA Not Detected Not Detected [facility] C. pneumoniae DNA Not Detected Not Detected [facility] M. pneumoniae DNA Not Detected Not Detected [facility] Nasopharyngeal 08/17/2024 2: 02 PM CDT 08/17/2024 2:24 PM CDT Narrative CERNER BJ - 08/17/2024 3:27 PM CDT Is the Patient experiencing symptoms consistent with COVID?->Yes Surveillance testing for transplant patient?->No Interpretive Data The [employer]Cloud FilmArray Respiratory Panel (RP2.1) assay is a [...] assay has FDA clearance for testing of WINDLACE MACHINE OPERATOR swabs. The performance of additional specimen types has been assessed by the performing laboratory. The performance characteristics of this assay have been determined by [facility] Molecular Infectious Disease Laboratory. Current interpretive data was last revised on 22. us Malika Mishra MD LAB MICROBIOLOGY - GENERAL O RDERABLES Final Result [facility] Department [place] [address] * CTA Head Neck W WO Contrast [...] and agrees with it. Electronically signed by: MD Iván Staples 08/17/2024 2:04 PM CDT EXAMINATION: 1. Computed [...] the CTA were generated on a dedicated workstation/food and beverage server. Contrast information: 69 mL Optiray-350 IV [...] narrowing or filling defects are identified. The [id number] is complete. The anterior and middle cerebral [...] the CTA were generated on a dedicated workstation/food and beverage server. Contrast information: 69 mL Optiray-350 IV [...] narrowing or filling defects are identified. The [id number] is complete. The anterior and middle cerebral [...] * POCT creatinine (08/17/2024 12:29 PM CDT) [facility] Creatinine POC 0.8 0.6 - 1.1 mg/dL Blood 08/17/2024 12:2 9 PM CDT 08/17/2024 12:29 PM CDT us Tommie Mccann MD LAB POCT ORDERABLES - DEVICE Final Result [facility] Department [place] [address] * eGFR (08/17/2024 12:18 PM CDT) Pathologist [facility] [place] eGFR 84 >=60 mL/min/1. 73 m2 Comment: [...] MD LAB BLOOD ORDERABLES Final R esult [facility] Department [place] [address] * (ABNORMAL) Differential, auto (08/17/2024 12:18 PM CDT) Neutrophil abs 5.0 1.5 - 6.5 K/cumm Imm gran abs 0.0 0.0 - 0.1 K/cumm [facility] Lymphocyte abs 1.1 0.8 - 3.3 K/cumm [facility] Monocyte abs 1.0(H) 0.2 - 0.8 K/cumm [facility] Eosinophil abs 0.1 0.0 - 0.5 K/cumm [facility] Basophil abs 0.1 0.0 - 0.1 K/cumm [facility] Neutrophil pct 68.9 % [facility] Comment: Interpretive Data Percent cell count reference ranges are not reported, since discordance with absolute values may lead to misinterpretation of CBC data. Current Interpretive Data was last revised on 2017. Imm gran pct 0.6 % [facility] Comment: Interpretive Data Percent cell count reference ranges are not reported, since discordance with absolute values may lead to misinterpretation of CBC data. Current Interpretive Data was last revised on 2017. Lymphocyte pct 15.4 % [facility] Comment: Interpretive Data Percent cell count reference ranges are not reported, since discordance with absolute values may lead to misinterpretation of CBC data. Current Interpretive Data was last revised on 2017. Monocyte pct 13.3 % [facility] Comment: Interpretive Data Percent cell count reference ranges are not reported, since discordance with absolute values may lead to misinterpretation of CBC data. Current Interpretive Data was last revised on 2017. Eosinophil pct 1.1 % [facility] Comment: Interpretive Data Percent cell count reference ranges are not reported, since discordance with absolute values may lead to misinterpretation of CBC data. Current Interpretive Data was last revised on 2017. Basophil pct 0.7 % [facility] Comment: Interpretive Data Percent cell count reference ranges are not reported, since discordance with absolute values may lead to misinterpretation of CBC data. Current Interpretive Data was last revised on 2017. Blood 08/17/2024 12:1 8 PM CDT 08/17/2024 12:35 PM CDT us Malika Mishra MD LAB BLOOD ORDERABLES Final R esult [facility] Department [place] [address] * (ABNORMAL) CBC with auto differential (08/17/2024 12:18 PM CDT) WBC 7.2 3.8 - 9.9 K/cumm Hgb 11.2(L) 11.9 - 15.5 g/dL [facility] Hct 33.2(L) 35.6 - 45.5 % [facility] Plt 187 150 - 400 K/cumm [facility] MPV 10.0 9.1 - 12.3 fL [facility] RBC 3.45(L) 3.90 - 5.20 M/cumm [facility] MCV 96.2 81.3 - 96.4 fL [facility] MCH 32.5 27.1 - 33.3 pg [facility] MCHC 33.7 32.3 - 35.7 g/dL [facility] RDW CV 14.8 11.1 - 14.9 % [facility] RDW SD 51.9(H) 35.7 - 48.1 fL [facility] NRBC abs 0.00 0.00 - 0.01 K/cumm [facility] Blood 08/17/2024 12:1 8 PM CDT 08/17/2024 12:35 PM CDT us Malika Mishra MD LAB BLOOD ORDERABLES Final R esult Performing Organization Address [facility] Co de Phone Number [facility] [email or web address] [place] [address] * aPTT (08/17/2024 12:18 PM CDT) aPTT [...] ORDERABLES Final R esult Performing Organization Address City/[facility] Co de Phone Number [facility] [email or web address] [address] * (ABNORMAL) Erythrocyte sedimentation rate (08/17/2024 12:18 PM CDT) Pathologist [facility] [place] Erythrocyte sedimentation rate 61(H) 1 - 30 mm/hr Blood 08/17/2024 12:1 8 PM CDT 08/17/2024 12:35 PM CDT Malika Mishra MD LAB BLOOD ORDERABLES Final R esult Performing Organization Address [facility] Co de Phone Number [facility] [email or web address] [address] * Protime-INR (08/17/2024 12:18 PM CDT) PT 13.0 9.7 - 13.0 sec INR 1.20 0.90 - 1.20 [facility] Comment: Interpretive data Oral [...] ORDERABLES Final R esult Performing Organization Address [facility] Co de Phone Number [facility] [email or web address] [address] * (ABNORMAL) CRP (acute phase) (08/17/2024 12:18 PM CDT) Pathologist [facility] [place] CRP 124.6(H) <=10.0 mg/L Blood 08/17/2024 12:1 8 PM CDT 08/17/2024 12:35 PM CDT Malika Mishra MD LAB BLOOD ORDERABLES Final R esult Performing Organization Address [facility]/ZIP [place] [address] * (ABNORMAL) Comprehensive metabolic panel (08/17/2024 12:18 PM CDT) Sodium 134(L) 135 - 145 mmol/L Potassium, pl 3.9 3.3 - 4.9 mmol/L [facility] Comment:Hemolyzed; Potassium value may be falsely elevated by as much as 0.3-0.5 mmol/L. Suggest redraw and reanalysis. Chloride 99 97 - 110 mmol/L [facility] CO2 26 22 - 32 mmol/L [facility] Anion gap 9 2 - 15 mmol/L [facility] BUN 7 6 - 25 mg/dL [facility] Creatinine 0.76 0.60 - 1.10 mg/dL [facility] Glucose 95 70 - 199 mg/dL [facility] Comment: Interpretive Data Fasting [...] 2022. Calcium 9.3 8.5 - 10.3 mg/dL [facility] Bilirubin, total 0.4 0.1 - 1.2 mg/dL [facility] Protein, pl 8.2 6.5 - 8.5 g/dL [facility] Albumin 3.8 3.5 - 5.0 g/dL [facility] Alk phos 100 40 - 130 Units/L [facility] ALT 19 7 - 45 Units/L [facility] AST 31 10 - 45 Units/L [facility] Comment:Hemolyzed; result ma y be falsely elevated Blood 08/17/2024 12:1 8 PM CDT 08/17/2024 12:35 PM CDT us Malika Mishra MD LAB BLOOD ORDERABLES Final R esult [facility] Department [place] [address] * Thiopurine metabolites (07/10/2024 9:42 AM RN RADIATION) Pathologist [facility] [place] 6-TG, bld 281 235 - 450 [facility] ref Lab Comment:Increased possibilit y of response; optimal dosing. 6-MMP, bld <406 < or = 5700 [facility] Comment: Result not quantifiable; below the limit of quantitation. Decreased risk of hepatotoxicity. ADDITIONAL INFORMATION Testing performed by Liquid Chromatography-Tandem Mass Spectrometry (LC-MS/MS) This test was developed and its performance characteristics determined by [facility] in a manner consistent with CLIA requirements. This test has not been cleared or approved by the U.S. Food and Drug Administration. Test Performed by: [place] [address] [employer] Cans Operator: Dawit Avendano Ph.D.; CLIA# [id number] Blood 07/10/2024 9:42 AM RN RADIATION 07/10/2024 12:32 PM RN RADIATION Hardy Dash MD LAB BL OOD ORDERABLES Final Result [facility] Department [place] [address] [facility] ref Lab * (ABNORMAL) CBC with auto differential (07/10/2024 9:42 AM RN RADIATION) White Blood Count 3.7 3.6 - 11.2 [...] [facility] Blood 07/10/2024 9:42 AM RN RADIATION 07/10/2024 10:51 AM RN RADIATION Hardy Dash MD LAB BL OOD ORDERABLES Final Result [facility] CORE [facility] * (ABNORMAL) Erythrocyte sedimentation rate (07/10/2024 9:42 AM RN RADIATION) Erythrocyte sedimentation rate 42(H) 1 - 30 mm/hr Blood 07/10/2024 9:42 AM RN RADIATION 07/10/2024 12:09 PM RN RADIATION Hardy Dash MD LAB BL OOD ORDERABLES Final Result [facility] Department [place] [address] * (ABNORMAL) CRP (acute phase) (07/10/2024 9:42 AM RN RADIATION) C-Reactive Protein, Acute 6.1(H) <5.0 mg/L [facility] Blood 07/10/2024 9:42 AM RN RADIATION 07/10/2024 10:51 AM RN RADIATION Hardy Dash MD LAB BL OOD ORDERABLES Final Result [facility] * (ABNORMAL) Comprehensive metabolic panel (07/10/2024 9:42 AM RN RADIATION) Total Protein 8.1 6.1 - 8.4 g/dL [...] [facility] Blood 07/10/2024 9:42 AM RN RADIATION 07/10/2024 10:51 AM RN RADIATION us Hardy Dash MD LAB BL OOD ORDERABLES Final Result [facility] * Hepatitis panel, acute Blood (02/05/2024 11:38 AM CDT) Hep A IgM Nonreactive Nonreactive Hep B core IgM Nonreactive Nonreactive [facility] Hep C Ab Nonreactive [facility]reactive [facility] Comment:Antibodies to HCV no t detected. Does NOT exclude the possibility of recent exposure to HCV. Current interpretive data was last revised on 22 HepBsAg Nonreactive Nonreactive [facility] Blood 02/05/2024 11:3 8 AM CDT 02/05/2024 12:20 PM CDT us Yolette Palmer MD PhD LAB MICROBIOLOGY - GENERAL ORDERABLES Final Result [facility] [place] [address] from Last 3 Months or Most Recently Relevant to Health Maintenance Insurance AET MEDICARE GOLD AETNA MEDICARE GOLD AETNA MEDICARE GOLD AETNA MEDICARE GOLD Advance Directives For more information, please contact: [phone] * Full Code (Latest Code Status on File) Date Activated Date Inactivated Comments 08/17/2024 11:21 PM 08/23/2024 9:39 PM * Full Code Date Activated Date Inactivated Comments 08/30/2022 3:05 PM 09/18/2022 7:53 PM * Full Code Date Activated Date Inactivated Comments 06/06/2022 6:17 PM 06/07/2022 6:51 PM * Full Code Date Activated Date Inactivated Comments 06/06/2022 5:47 PM 06/06/2022 6:17 PM Care Teams Children'S Aide Relationship Specialty Start Date End Date Alison Perez MD [address] [employer] [place] [address] PCP - General Internal Medicine 08/31/22 Zenon Alexander MD PhD [address] [place] [address] Consulting Physician Neurology 09/18/22 Terrence Avalos MD [address] [place] [address] Consulting Physician Infectious Diseases 09/18/22 Aurora Howell SLP [address] [place] [address] Speech Language Pathologist Speech Therapy 08/01/24
--- OUTSIDE RECORDS SUMMARY | 2024-10-06 07:44 | XMS_ITS | Clinical Summary ---
Author Organization [facility] Address [address] [place] [address] Phone Care Team Providers Care Applicator Sprayer Name Role Phone Provider, Unknown Primary Care [...] C AETNA MEDICARE C AETNA Care Teams Applicator Sprayer Relationship Specialty Start Date End Date Provider, Unknown UNKNOWN PCP - General 02/11/16
--- OUTSIDE RECORDS SUMMARY | 2024-10-06 07:44 | XMS_ITS | Encounter Summary ---
Author Organization [facility] Address [address] [place] [address] Phone Care Team Providers Care Radar Systems Engineer Name Role Phone Alison Perez MD Primary Care Provider [phone] Zenon Alexander MD PhD Unavailable [phone] Terrence Avalos MD Unavailable [phone] [facility] Unavailable Encounter Details Date Type Department Care [...] week 08/31/2022 How often do you attend [facility] or voodoo services? More than 4 times per year [...] on file Legal Sex Female 11:45 AM [employer] Gender Identity Female 02/08/2019 7:49 PM CDT [...] documented as of this encounter Care Teams Radar Systems Engineer Relationship Specialty Start Date End Date Alison Perez MD [address] [employer] [place] [id number] PCP - General Internal Medicine 08/31/22 Zenon Alexander MD PhD [address] [place] [address] Consulting Physician Neurology 09/18/22 Terrence Avalos MD [address] [place] [address] Consulting Physician Infectious Diseases 09/18/22 Aurora Howell SLP [address] [place] [address] Speech Language Pathologist Speech Therapy 08/01/24 documented as of this encounter
[2024-10-06 08:05] LABS: Estimated Glomerular Filt Rate > 60
== END 2024-10-06 07:30 | disposition home or self-care (01) ==
PROVIDERS: PCP Internal Medicine; Visit Provider Internal Medicine
DX: Q45.3 Other congenital malformations of pancreas and pancreatic duct (principal); S32.010A Wedge compression fracture of first lumbar vertebra, initial encounter for closed fracture; S32.020A Wedge compression fracture of second lumbar vertebra, initial encounter for closed fracture; S32.030A Wedge compression fracture of third lumbar vertebra, initial encounter for closed fracture; S32.040A Wedge compression fracture of fourth lumbar vertebra, initial encounter for closed fracture; X58.XXXA Exposure to other specified factors, initial encounter
CPT/HCPCS: 74178; Q9967